=== PATIENT | male | born 1960 | race Caucasian/White ===

== ENCOUNTER 2016-04-27 10:49 | Outpatient (RCR) | payer MEDICARE, OTHER ==
[2016-02-24 10:08] VITALS: BP 132/82
--- OUTSIDE RECORDS SUMMARY | 2016-02-24 10:27 | XMS REPORT | Continuity of Care Document ---
Author Author [facility] Organization [facility] Address Unknown Phone Unavailable Care Team Providers Care Rn Cardiology Name Role Phone Jemal Chaudhary PCP [phone] Source Comments Some departments are not documenting in the electronic medical record. If you do not see the information that you expected, contact Release of Information in the Health Information Management department at [phone] for further assistance in locating additional records.[facility] Active Allergies and Adverse Reactions Allergen Noted Date Severity Reactions Comments Protamine 06/02/2012 UNKNOWN Simvastatin 08/06/2012 MUSCLE PAIN Tylox 06/02/2012 HALLUCINATIONS With large doses Current Medications Prescription Sig. Disp. Refills Start End Date Status Date isosorbide mononitrate SR Take 60 mg by mouth every Active (IMDUR) 60 mg tablet morning. insulin detemir(+) Inject 32 Units into Active (LEVEMIR) 100 unit/mL area(s) as directed at Soln bedtime daily. buPROPion (WELLBUTRIN) 75 Take 150 mg by mouth Active mg tablet daily. insulin aspart (NOVOLOG) Inject 36-38 Units into Active 100 unit/mL flexPEN area(s) as directed three times daily with meals. clopiDOGrel (PLAVIX) 75 Take 1 Tab by mouth 30 Tab 1 06/05/19 Active mg tablet daily. 13 nitroglycerin (NITROSTAT) for chest pain. Take 1 25 Tab 3 06/10/19 Active 0.4 mg tablet every 5 minutes x up to 3 13 times. Call 911 or go to ER if chest pain persists aspirin 325 mg tablet Take 325 mg by mouth Active daily. levothyroxine (SYNTHROID) Take 175 mcg by mouth Active 175 mcg tablet daily. cloNIDine HCl (CATAPRESS) Take 0.1 mg by mouth Active 0.1 mg tablet daily as needed. When SBP >140 lovastatin(+) (MEVACOR) Take 60 mg by mouth at Active 40 mg tablet bedtime daily. HYDROcodone-acetaminophen Take 1 Tab by mouth twice Active (+) (VICODIN) 10-325 mg daily as needed. For pain tablet Active Problems Problem Noted Date S/P laparoscopic cholecystectomy 09/04/2012 Type II diabetes mellitus (HCC) 06/02/2012 S/P CABG (coronary artery bypass graft) 06/02/2012 JOSE (obstructive sleep apnea) 06/02/2012 CAD (coronary artery disease) Overview: 01/06/09- CABG x 4 ([facility]): Left internal thoracic artery-LAD. SVG-DIAG, SVG-OM1 and OM2. HTN (hypertension) Hypothyroidism CKD (chronic kidney disease) Resolved Problems Problem Noted Date Resolved Date Cholelithiasis 08/15/2012 09/04/2012 Cholelithiasis and cholecystitis without obstruction 08/12/2012 09/04/2012 Social History Tobacco Use Types Packs/Day Years Used Date Former Smoker Cigarettes 35 Quit: 02/23/2012 Smokeless Tobacco: Never Used Alcohol Use Drinks/Week oz/Week Comments No Last Filed Vital Signs Vital Sign Reading Time Taken Blood Pressure 120/70 10/28/2012 10:23 AM CDT Pulse 54 10/28/2012 10:23 AM CDT Temperature 36.2 C (97.1 F) 09/03/2012 10:30 AM CDT Respiratory Rate 14 09/03/2012 10:30 AM CDT Height 1.778 m (5' 10") 12/26/2012 10:31 AM CDT Weight 97.523 kg (215 lb) 12/26/2012 10:31 AM CDT Body Mass Index 30.85 12/26/2012 10:31 AM CDT Oxygen Saturation 99% 08/16/2012 11:35 AM CDT Plan of Care Health Maintenance Due Date Last Done Comments Physical (Comprehensive) 08/25/1966 Exam Pertussis Vaccine 08/25/1970 Tetanus Vaccine 08/25/1976 Dilated Eye Exam 08/25/1977 Foot Exam 08/25/1977 Hba1c 08/25/1977 Microalbumin 08/25/1977 Pneumonia Vaccine (Dm) 08/25/1977 Colorectal Cancer 08/25/2009 Screening Influenza Vaccine 11/24/2015 Results from Last 3 Months Not on file
[2016-03-27 10:15] VITALS: BP 153/85
[~2016-04-27] VITALS: Ht 177.8 cm; Wt 94.3 kg
[~2016-04-27 10:49] MED LIST: AMLO10TA PO; ASP325T PO; ASP81TEC PO; ASPI-84; ASPI-999 PO; ATEN25TA PO; ATOR40TA PO; ATOR80TA PO; ATR20T; Alprazolam PO; Amlodipine Besylate PO; BENA40TA59; BNZ20T PO; BPR150TCR PO; BUPR150T6; BUPR75TA5 PO; CIPR500T78 PO; CIPR5DRO EACH EAR; CITA-105 PO; CLIN-81 PO; CLON0.1T14 PO; CLOP75TA PO; DULO30CA3 PO; GBPN100C; HYDR-2890 PO; HYDR-3720 PO; INSASP10V SC; INSU100I13; INSU100I14 SQ; INSU100I5; INSU100V5 SQ; ISM30TCR PO; ISM60TCR PO; Insulin Human Lispro SC; K-VANCO1PB IV; LEVE1U SQ; LEVO175T3 PO; LEVO200T30; LEVO200T30 PO; LEVO200T6 PO; LISI20TA2 PO; LOVA20TA2 PO; LOVA40TA2; LOVA40TA2 PO; LOVA60TA2 PO; LVT.112T PO; METO50TA7; METO5TAB2 PO; NITR0.4T SL; OMEG-12 PO; OXYC-12; PNT40TEC PO; QUIN40TA; SIMV80TA3 PO; SUCR1TAB PO; Sucralfate PO; TEST5GEL6; TRM50T; ZINC50TA49 PO; [UNRECOGNIZED DRUG - CODE] IV
[2016-04-27 11:02] VITALS: BP 163/95
[2016-05-30] MEDS ORDERED: LOVA20TA2 PO (08:23)
[2016-05-30] MEDS ORDERED: ISOS30TA3 PO (08:23)
[2016-05-31] MEDS ORDERED: OMEG500C PO (07:56)
[2016-06-09] MEDS ORDERED: OXYC-201 PO (12:10)
[2016-06-09] MEDS ORDERED: SULF1TAB35 PO (12:10)
[2016-06-09] MEDS ORDERED: CRUT1EAC7 IART (12:15)
[2016-07-05] MEDS ORDERED: AMLO10TA2 PO (08:58)
[2016-07-05] MEDS ORDERED: CFTR1PB IV (08:58)
== END 2016-05-24 | disposition home or self-care (01) ==
LOC: SDC 10:49
PROVIDERS: ATTEND Internal Medicine
DX: Z45.2 Encounter for adjustment and management of vascular access device (principal); I87.2 Venous insufficiency (chronic) (peripheral)
CPT/HCPCS: 96523

== ENCOUNTER → 2016-05-17 | Outpatient (CLI) | payer MEDICARE, OTHER ==
[~2016-05-17] MED LIST changes: +AMLO10TA2 PO; +ASPI-983 PO; +CFTR1PB IV; +CRUT1EAC7 IART; +ISOS30TA3 PO; +OMEG500C PO; +OMG1KC PO; +OXYC-201 PO; +SULF1TAB34 PO; +SULF1TAB35 PO
--- OUTSIDE RECORDS SUMMARY | 2016-05-17 09:54 | XMS REPORT | Continuity of Care Document ---
Author Author [facility] Organization [facility] Address Unknown Phone Unavailable Care Team Providers Care Professor Of Oceanography Name Role Phone Jemal Chaudhary PCP [phone] Source Comments Some departments are not documenting in the electronic medical record. If you do not see the information that you expected, contact Release of Information in the Health Information Management department at [phone] for further assistance in locating additional records.[facility] Active Allergies and Adverse Reactions Allergen Noted [...] artery disease) Overview: 01/06/09- CABG x 4 ([facility]): Left internal thoracic artery-LAD. SVG-DIAG, SVG-OM1 [...]
[2016-05-17 10:07] LABS: BASOPHILS # (AUTO) 0.1 10^3/uL (0.0-0.1); BASOPHILS % (AUTO) 1 % (0-10); EOSINOPHILS # (AUTO) 0.4 10^3/uL (0.0-0.3); EOSINOPHILS % (AUTO) 3 % (0-10); LYMPHOCYTES # (AUTO) 1.6 X 10^3 (1.0-4.0); LYMPHOCYTES % (AUTO) 14 % (12-44); MEAN CORPUSCULAR HEMOGLOBIN 31 PG (25-34); MEAN CORPUSCULAR HGB CONC 34 G/DL (32-36); MEAN CORPUSCULAR VOLUME 90 FL (80-99); MEAN PLATELET VOLUME 11.1 FL (7.4-10.4); MONOCYTES # (AUTO) 0.8 X 10^3 (0.0-1.0); MONOCYTES % (AUTO) 7 % (0-12); NEUTROPHILS # (AUTO) 8.4 X 10^3 (1.8-7.8); NEUTROPHILS % (AUTO) 76 % (42-75); PLATELET COUNT 155 10^3/uL (130-400); RED BLOOD COUNT 4.92 10^6/uL (4.35-5.85); WHITE BLOOD COUNT 11.1 10^3/uL (4.3-11.0)
[2016-05-17 10:32] LABS: ALBUMIN 3.5 G/DL (3.2-4.5); BILIRUBIN,TOTAL 0.5 MG/DL (0.1-1.0); CALCIUM 9.3 MG/DL (8.5-10.1); CREATININE SERUM 1.77 MG/DL (0.60-1.30); POTASSIUM 4.5 MMOL/L (3.6-5.0)
[2016-05-17 10:44] LABS: ERYTHROCYTE SEDIMENTATION RATE 44 MM/HR (0-30)
== END ==
LOC: LAB 09:49
PROVIDERS: ATTEND Internal Medicine
DX: E11.621 Type 2 diabetes mellitus with foot ulcer (principal); I70.235 Atherosclerosis of native arteries of right leg with ulceration of other part of foot; L97.512 Non-pressure chronic ulcer of other part of right foot with fat layer exposed
CPT/HCPCS: 36415; 80053; 83036; 85025; 85652

== ENCOUNTER → 2016-05-24 | Outpatient (CLI) | payer MEDICARE, OTHER ==
--- OUTSIDE RECORDS SUMMARY | 2016-05-24 08:57 | XMS REPORT | Continuity of Care Document ---
Author Author [facility] Organization [facility] Address Unknown Phone Unavailable Care Team Providers Care Tick Sewer Name Role Phone Jemal Chaudhary PCP [phone] Source Comments Some departments are not documenting in the electronic medical record. If you do not see the information that you expected, contact Release of Information in the Health Information Management department at [phone] for further assistance in locating additional records.[facility] Active Allergies and Adverse Reactions Allergen [...] artery disease) Overview: 01/06/09- CABG x 4 ([facility]): Left internal thoracic artery-LAD. SVG-DIAG, SVG-OM1 [...]
--- NOTE | 2016-05-24 14:59 | Diagnostic Imaging Report ---
Three views of the right foot. INDICATION: Third toe exposed bone. Evaluate for osteomyelitis. FINDINGS: There is abnormal lucency and erosion in the distal phalanx in the great toe. There is also evidence of erosion of the tuft of the distal phalanx of the second toe. Nonspecific central lucency is seen in the third, fourth and fifth distal phalanges. These could be from cystic degenerative changes. There is hallux valgus deformity. There is a screw through the base of the first metatarsal. There is satisfactory bone alignment. No acute fracture seen. IMPRESSION: Age-indeterminate erosions in the distal phalanges of the first and second toes. Nonspecific lucencies in the distal phalanges of the third, fourth and fifth toes are perhaps related to intraosseous cysts. Correlate clinically and with followup exams. Dictated by: Dictated on workstation # [id number]
== END ==
LOC: LAB 08:53
PROVIDERS: ATTEND Internal Medicine
DX: E11.621 Type 2 diabetes mellitus with foot ulcer (principal); I70.235 Atherosclerosis of native arteries of right leg with ulceration of other part of foot; L97.512 Non-pressure chronic ulcer of other part of right foot with fat layer exposed
CPT/HCPCS: 73630

== ENCOUNTER → 2016-05-28 | Outpatient (CLI) | payer MEDICARE, OTHER ==
--- OUTSIDE RECORDS SUMMARY | 2016-05-28 07:38 | XMS REPORT | Continuity of Care Document ---
Author Author [facility] Organization [facility] Address Unknown Phone Unavailable Care Team Providers Care Parking Lot Attendant And Cashier Name Role Phone Jemal Chaudhary PCP [phone] Source Comments Some departments are not documenting in the electronic medical record. If you do not see the information that you expected, contact Release of Information in the Health Information Management department at [phone] for further assistance in locating additional records.[facility] Active Allergies and Adverse Reactions Allergen Noted [...] artery disease) Overview: 01/06/09- CABG x 4 ([facility]): Left internal thoracic artery-LAD. SVG-DIAG, SVG-OM1 [...]
[2016-05-28 08:32] LABS: THYROID STIMULATING HORMONE 1.31 UIU/ML (0.35-4.94)
[2016-05-29 11:48] LABS: MICROALBUMIN/CREATININE RATIO 973.3 mg/gCR (0.0-30.0)
== END ==
LOC: LAB 07:33
PROVIDERS: ATTEND Internal Medicine
DX: Z00.00 Encounter for general adult medical examination without abnormal findings (principal); E11.65 Type 2 diabetes mellitus with hyperglycemia; E78.1 Pure hyperglyceridemia; E78.00 Pure hypercholesterolemia, unspecified; D50.8 Other iron deficiency anemias; E03.9 Hypothyroidism, unspecified
CPT/HCPCS: 36415; 80061; 82043; 82728; 83540; 84439; 84443

== ENCOUNTER 2016-05-30 06:40 | Day surgery (SDC) | payer MEDICARE, OTHER ==
[2016-05-30] VITALS (11 sets, daily range): BP systolic 148–167; BP diastolic 86–104
[~2016-05-30] VITALS: Ht 177.8 cm; Wt 92.1 kg
[~2016-05-30 06:40] MED LIST changes: -AMLO10TA2 PO; -ASPI-983 PO; -CFTR1PB IV; -CRUT1EAC7 IART; -ISOS30TA3 PO; -OMEG500C PO; -OMG1KC PO; -OXYC-201 PO; -SULF1TAB34 PO; -SULF1TAB35 PO
--- OUTSIDE RECORDS SUMMARY | 2016-05-30 06:43 | XMS REPORT | Continuity of Care Document ---
Author Author [facility] Organization [facility] Address Unknown Phone Unavailable Care Team Providers Care Roller Maker Name Role Phone Jemal Chaudhary PCP [phone] Source Comments Some departments are not documenting in the electronic medical record. If you do not see the information that you expected, contact Release of Information in the Health Information Management department at [phone] for further assistance in locating additional records.[facility] Active Allergies and Adverse Reactions Allergen [...] disease) Overview: 01/06/09- CABG x 4 ([facility]): Left internal thoracic artery-LAD. SVG-DIAG, SVG-OM1 and [...]
--- OUTSIDE RECORDS SUMMARY | 2016-05-30 06:43 | XMS REPORT | Continuity of Care Document ---
Author Author [facility] Organization [facility] Address Unknown Phone Unavailable Care Team Providers Care Photographer'S Model Name Role Phone Jemal Chaudhary PCP [phone] Source Comments Some departments are not documenting in the electronic medical record. If you do not see the information that you expected, contact Release of Information in the Health Information Management department at [phone] for further assistance in locating additional records.[facility] Active Allergies and Adverse Reactions [...] artery disease) Overview: 01/06/09- CABG x 4 ([facility]): Left internal thoracic artery-LAD. SVG-DIAG, SVG-OM1 and [...]
[2016-05-30] MEDS ORDERED: HEParin (CATH LAB) 2,000 ML IV ONE (06:58)
[2016-05-30] MEDS ORDERED: NS IV 1000 ML 1,000 ML ONE (06:58)
[2016-05-30] MEDS ORDERED: LIDOCAINE 1% INJ 20 ML (XYLOCAINE) VIAL ONE ×2 (06:58→10:17)
[2016-05-30] MEDS ORDERED: NS IV 1000 ML 1,000 ML IV SCH (07:30)
[2016-05-30] MEDS ORDERED: FLU TRIvalent (5 YOA+) 2016-17 (AFLURIA) 0.5 ML IM ONE (07:45)
--- NOTE | 2016-05-30 07:45 | Diagnostic Imaging Report ---
INDICATION: Preop. FINDINGS: The lungs are well-aerated and clear. The heart is not enlarged. Median sternotomy changes are present. No pneumothorax or pleural effusion. IMPRESSION: No acute abnormalities. Dictated by: Dictated on workstation # [id number]
[2016-05-30 07:57] LABS: BILIRUBIN,URINE NEGATIVE (NEGATIVE); KETONES,URINE NEGATIVE (NEGATIVE); LEUKOCYTE ESTERASE ,URINE NEGATIVE (NEGATIVE); NITRITE,URINE NEGATIVE (NEGATIVE); PH,URINE 5 (5-9); PROTEIN,URINE 4+ (NEGATIVE); UROBILINOGEN,URINE NORMAL (NORMAL)
[2016-05-30 07:58] LABS: MEAN PLATELET VOLUME 11.4 FL (7.4-10.4); RED BLOOD COUNT 4.78 10^6/uL (4.35-5.85); RED CELL DISTRIBUTION WIDTH 13.7 % (10.0-14.5)
[2016-05-30 08:07] LABS: SQUAMOUS EPITHELIAL CELL,UR 0-2 /HPF; WBC,URINE 0-2 /HPF
[2016-05-30 08:09] LABS: INR 1.1 (0.8-1.4); PROTHROMBIN TIME PATIENT 13.4 SEC (12.2-14.7)
[2016-05-30 08:16] LABS: ALBUMIN 3.3 G/DL (3.2-4.5); BILIRUBIN,TOTAL 0.8 MG/DL (0.1-1.0); CALCIUM 9.2 MG/DL (8.5-10.1); CREATININE SERUM 2.11 MG/DL (0.60-1.30); POTASSIUM 4.1 MMOL/L (3.6-5.0); TOTAL PROTEIN 6.7 G/DL (6.4-8.2)
[2016-05-30] MEDS ORDERED: ISOS30TA3 PO ×2 (08:23)
[2016-05-30] MEDS ORDERED: LOVA20TA2 PO ×2 (08:23)
[2016-05-30] MEDS ORDERED: NS IV 1000 ML 2,000 ML ONE (08:54)
--- NOTE | 2016-05-30 09:10 | Cardiac Procedure Note-CS/ASA ---
Pre-Procedure Note Pre-Op Procedure Note H&P Reviewed The H&P was reviewed, patient examined and no changes noted. Date H&P Reviewed: May 30, 2016 Time H&P Reviewed: 09:09 Conscious Sedation Pre-Proced Time Reviewed: : ASA Class: 3 Airway Mallampati Classification: ([place] appropriate class) I. II. III, IV Lungs Heart ASA score ASA 1: a normal healthy patient ASA 2: a patient with a mild systemic disease (mid diabetes, controlled hypertension, obesity x ASA 3: a patient with a severe systemic disease that limits activity (angina , COPD, prior Myocardial infarction) ASA 4: a patient with an incapacitating disease that is a constant threat to life (CHF, renal failure) ASA 5: a moribund patient not expected to survive 24 hrs. (ruptured aneurysm) ASA 6: a declared brain patient whose organs are being harvested. For emergent operations, add the letter E after the classification Grade 3 Sedation Plan: Analgesia, Amnesia, Plan communicated to team members, Discussed options with patient/fam, Discussed risks with patient/fam Note The patient is an appropriate candidate to undergo the planned procedure, sedation, and anesthesia. The patient immediately re-assessed prior to indication. JORDEN GREER MD May 30, 2016 09:10
[2016-05-30] MEDS ORDERED: fentaNYL INJECTION 100 MCG/2 ML AMP ONE ×2 (09:40→10:38)
[2016-05-30] MEDS ORDERED: MIDAZOLAM 5 MG/5 ML (VERSED) VIAL ONE ×2 (09:40→10:38)
[2016-05-30] MEDS ORDERED: HEParin 1000 UNIT/ML (10ML VIAL) FOR BOLUS ONE (10:23)
[2016-05-30] MEDS ORDERED: NITROGLYCERIN DRIP 25 MG/D5W 250 ML IV ONE (10:51)
[2016-05-30] MEDS ORDERED: CLOPIDOGREL 300 MG (PLAVIX) TABLET PO ONE (11:35)
[2016-05-30] MEDS ORDERED: ASPIRIN 81 MG CHEW (CHILDREN'S ASA) ONE (11:35)
[2016-05-30] MEDS ORDERED: NITROGLYCERIN SUBLINGUAL 0.4 MG TAB (NITROSTAT) SL PRN (11:45)
[2016-05-30] MEDS ORDERED: PATIENT MAY USE OWN MEDS, ALL PO SCH (11:45)
[2016-05-30] MEDS ORDERED: HYDROcodone/APAP 10 MG/325 MG (LORTAB) TAB PO PRN (11:45)
[2016-05-30] MEDS: NS IV 1000 ML 1,000 ML IV SCH (15:02)
[2016-05-30] MEDS ORDERED: SIMvastatin 10 MG (ZOCOR) TAB PO SCH (21:00)
[2016-05-31] VITALS: BP 148/85
[2016-05-31] MEDS: NS IV 1000 ML 1,000 ML IV SCH ×2 (02:12→07:34)
[2016-05-31 04:25] LABS: MEAN PLATELET VOLUME 11.4 FL (7.4-10.4); RED BLOOD COUNT 4.16 10^6/uL (4.35-5.85); RED CELL DISTRIBUTION WIDTH 13.3 % (10.0-14.5); WHITE BLOOD COUNT 9.2 10^3/uL (4.3-11.0)
[2016-05-31 04:48] LABS: CALCIUM 8.1 MG/DL (8.5-10.1); CREATININE SERUM 1.8 MG/DL (0.60-1.30); POTASSIUM 3.8 MMOL/L (3.6-5.0)
[2016-05-31] MEDS ORDERED: LEVOTHYROXINE 100 MCG (LEVOTHROID) TAB PO SCH (06:30)
--- NOTE | 2016-05-31 07:54 | Cardiology Progress Note ---
Subjective Subjective/Events-last exam patient is laying down in bed, feeling better, groin is healing well. Review of Systems General: No Chills, No Night Sweats, No Fatigue, No Malaise, No Appetite, No Other HEENT: No Head Aches, No Visual Changes, No Eye Pain, No Ear Pain, No Dysphasia , No Sinus Congestion, No Post Nasal Drip, No Sore Throat, No Other Pulmonary: No Dyspnea, No Cough, No Pleuritic Chest Pain, No Other Cardiovascular: No: Chest Pain, Edema, Lt Headedness, Orthopnea, Other, Palpitations, Paroxysmal Noc. Dyspnea Objective-Cardiology Exam Last Set of Vital Signs Vital Signs 05/30/16 05/31/16 05/31/16 05/31/16 14:00 00:00 01:00 06:52 Temp 98.6 Pulse 73 Resp 16 B/P 148/85 Pulse Ox 94 O2 Delivery Room Air O2 Flow Rate 2.00 Capillary Refill : Less Than 3 Seconds General: Alert, Oriented X3, Cooperative HEENT: Atraumatic, PERRLA Neck: Supple, No JVD, No Thyromegaly Lungs: Clear to Auscultation, Normal Air Movement Heart: Regular Rate, Normal S1, Normal S2, No Murmurs Abdomen: Normal Bowel Sounds, Soft, No Tenderness, No Hepatosplenomegaly, No Masses Extremities: No Clubbing, No Cyanosis, No Edema, Normal Pulses, No Tenderness/ Swelling Skin: No Rashes, No Breakdown, No Significant Lesion Neuro: Normal Gait, Normal Speech, Strength at 5/5 X4 Ext, Normal Tone, Sensation Intact Psych/Mental Status: Mental Status NL, Mood NL Results Lab Laboratory Tests 05/31/16 04:08 A/P-Cardiology Admission Diagnosis nonhealing foot ulcer Peripheral arterial disease Hypertension Hyperlipidemia Assessment/Plan peripheral arterial disease, status post angiogram and angioplasty, report was dictated. Coronary artery disease Hypertension, continue current medication Hyperlipidemia continue current medication Nonhealing foot ulcer, followed by wound care Tobaccoism educated on smoking cessation JORDEN GREER MD May 31, 2016 07:54
[2016-05-31] MEDS ORDERED: OMEG500C PO ×2 (07:56)
--- NOTE | 2016-05-31 07:56 | Discharge Inst-Post CATH ---
Discharge Inst-CATH Post Cardiac Cath D/C Inst Follow Up/Plan Appointment with Dr Roy's office in 2-4 weeks CARDIAC CATH DISCHARGE INSTRUCTIONS *Hold Metformin for 48 hours post heart cath. ACTIVITY * Go Home directly and rest. * Limit activity of the leg (or wrist if it was used) for 7 days including aerobics, swimming, jogging, bicycling, etc. * Restrict stair-climbing for 7 days if possible, if not, climb up with your non -cath leg, then bring together on the same step. * Avoid lifting, pushing, pulling or excessive movement of the affected extremity for 7 days. * Customary sexual activity may be resumed after 2 days-use caution not to use a position that strains or causes pain to the affected extremity. * No driving for 24 hours. * NO SMOKING. * Avoid straining for bowel movements for 7 days. * Gentle walking on level ground is allowed. * Returning to work will depend on the type of procedure and the results. Your doctor will discuss this with you. CALL YOUR DOCTOR FOR ANY OF THE FOLLOWING: *If bleeding from the puncture site occurs- Apply gentle pressure to site with clean cloth and call your doctor or EMS. * If a knot or lump forms under the skin, increases in size, or causes pain. * If bruising appears to be worsening or moving further down your leg instead of disappearing. * Temperature above 101 F. CARE OF YOUR GROIN INCISION; * Bruising or purple discoloration of the skin near the puncture site is common. * You may shower only, no bathtub bathing for 5 days. Be careful to avoid slipping as your leg may feel stiff. * If a closure device was used on your femoral artery, please see the attached guide regarding care of the device and your leg. * REMOVE the dressing from your groin the next day after your procedure in the shower. CARE OF YOUR WRIST INCISION; * Bruising or purple discoloration of the skin near the puncture site is common. * You may shower. * DO NOT submerge wrist. * Remove dressing in 24 hours. JORDEN ROY MD May 31, 2016 07:56
[2016-05-31 08:00] VITALS: BP 158/85
--- NOTE | 2016-05-31 08:33 | DISCHARGE SUMMARY ---
PROCEDURE PHYSICIAN: JORDEN GREER DATE OF PROCEDURE: 05/30/2016 PERIPHERAL ANGIOGRAM REPORT REFERRING PHYSICIAN: Dr. Ivet Colon INDICATIONS: 1. Peripheral arterial disease. 2. Nonhealing foot ulcer. BRIEF HISTORY: Mr. Valera is a 55-year-old gentleman with a history of peripheral arterial disease, multiple interventions. He has nonhealing foot ulcer on his right foot. He was scheduled for peripheral angiogram, possible angioplasty. PROCEDURE NOTE: After explaining the procedure to the patient, all pros and cons were explained. All questions were answered. The patient was placed on the cardiac catheterization laboratory. The left groin was prepped in a sterile fashion. I placed patient upside down on the collaborating supervising physician table for accessing the right leg. The patient had a stent extending in the superficial femoral artery to the common femoral artery on the left. I was able to access through the stent and put a 6-Polish sheath. Runoff of the left lower extremity was done. Then I advanced a pigtail catheter to the abdominal aorta, and abdominal aortogram was done. I extended a Storq wire through the pigtail catheter and placed a straight catheter in the common femoral artery. Runoff to the right leg was done. Then I advanced a straight catheter down to the popliteal artery and angiogram was done. At that time, I decided to proceed with percutaneous intervention. The patient was given heparin then through the straight catheter, I placed a Storq wire, exchanged the catheter and the sheath into 7-Polish long sheath 65 mm, advanced to the SFA. Then a command wire was advanced through the severe stenosis in the popliteal artery to the anterior tibial that has the subtotal occlusion. 2.0 x 60 mm apex balloon was inflated. Then 3 x 16 mm apex balloon was used. Excellent results. I inflated the anterior tibial and in the popliteal artery. Then I decided to balloon the popliteal artery with Lutonix drug coated balloon, 4.0 x 80 expanded under 8 atmospheres to its nominal position. Angiogram post balloon showed excellent results. Angiogram to the foot showed excellent result. The patient had stenosis in the posterior tibial and peroneal artery, which will be treated medically. Total contrast used in this procedure is 68 mL. Total radiation is 220 mGy. FINDINGS: 1. LEFT LOWER EXTREMITY RUNOFF: The patient had stent extending throughout the left SFA down to the popliteal artery and up in the common femoral. Runoff showed good flow. At the trifurcation there is occlusion of stents in the anterior tibial artery. The posterior tibial artery and peroneal arteries are occluded. 2. RIGHT LOWER EXTREMITY: Right lower extremity runoff showed moderate disease in the SFA. Severe disease at the distal popliteal artery just above the trifurcation. Anterior tibial artery is subtotally occluded, large artery. The posterior tibial and peroneal arteries are smaller arteries with severe disease at the midportion. Successful balloon angioplasty to the anterior tibial artery using 2.0 then 3.0 balloon x 60 mm with excellent results. Successful balloon angioplasty to the popliteal artery using drug coated balloon Lutonix 4.0 x 80 mm with excellent results. Excellent flow down to the foot post intervention. 3. ABDOMINAL AORTOGRAM: Abdominal aortogram showed atherosclerotic disease in the abdominal aorta and the bifurcation. Nonobstructive disease. DISCUSSION AND RECOMMENDATION: The patient was educated on smoking cessation. I will continue maximizing medical therapy. I am optimistic that the foot ulcer on the right will improve after improvement of the severe stenosis of the popliteal artery and anterior tibial artery. If patient continues to have problems, we will consider intervention on the posterior tibial artery. Regarding the left lower extremity if patient has any symptoms will consider intervention on the occluded stent in the anterior tibial artery and peroneal artery. FINAL DIAGNOSES: 1. Nonhealing foot ulcer. 2. Peripheral arterial disease. 3. Hypertension. 4. Hyperlipidemia. 5. Tobaccoism. Job ID: [id number] Dictated Date: 05/30/2016 11:48:05 Director Shopper Marketing Date: 05/31/2016 08:31:18/ugo
[2016-05-31] MEDS ORDERED: inSUlin DETERMIR 1 UNIT/0.01 ML (LEVEMIR) CHARGE PER UNIT SQ SCH (09:00)
[2016-05-31] MEDS ORDERED: CLOPIDOGREL 75 MG (PLAVIX) TABLET PO SCH (09:00)
[2016-05-31] MEDS ORDERED: ISOSORBIDE MONONITRATE 30 MG (IMDUR) TAB PO SCH (09:00)
[2016-05-31] MEDS ORDERED: ASPIRIN 81 MG CHEW (CHILDREN'S ASA) PO SCH (09:00)
[2016-06-09] MEDS ORDERED: OXYC-201 PO (12:10)
[2016-06-09] MEDS ORDERED: SULF1TAB35 PO (12:10)
[2016-06-09] MEDS ORDERED: CRUT1EAC7 IART (12:15)
[2016-07-05] MEDS ORDERED: AMLO10TA2 PO (08:58)
[2016-07-05] MEDS ORDERED: CFTR1PB IV (08:58)
== END 2016-05-31 10:35 | disposition home or self-care (01) ==
LOC: CATH 06:40 → CSD 11:50 → ICU 19:30 → CATH 05-31 10:35
PROVIDERS: ATTEND Internal Medicine Cardiovascular Disease
DX: L97.519 Non-pressure chronic ulcer of other part of right foot with unspecified severity (principal); I70.235 Atherosclerosis of native arteries of right leg with ulceration of other part of foot; N18.9 Chronic kidney disease, unspecified; I12.9 Hypertensive chronic kidney disease with stage 1 through stage 4 chronic kidney disease, or unspecified chronic kidney disease; E11.22 Type 2 diabetes mellitus with diabetic chronic kidney disease; E11.621 Type 2 diabetes mellitus with foot ulcer; I25.10 Atherosclerotic heart disease of native coronary artery without angina pectoris; Z72.0 Tobacco use; Z79.899 Other long term (current) drug therapy; Z79.4 Long term (current) use of insulin; Z95.5 Presence of coronary angioplasty implant and graft; Z95.1 Presence of aortocoronary bypass graft
CPT/HCPCS: 36247; 36415; 37224; 37228; 71010; 75625; 75716; 75774; 80048; 80053; 80061; 81000; 82962; 85027; 85347; 85610; 85730; 87081

== ENCOUNTER → 2016-06-05 | Outpatient (CLI) | payer MEDICARE, OTHER ==
[~2016-06-05] MED LIST changes: +AMLO10TA2 PO; +ASPI-983 PO; +CFTR1PB IV; +CRUT1EAC7 IART; +ISOS30TA3 PO; +OMEG500C PO; +OMG1KC PO; +OXYC-201 PO; +SULF1TAB34 PO; +SULF1TAB35 PO
--- OUTSIDE RECORDS SUMMARY | 2016-06-05 10:45 | XMS REPORT | Continuity of Care Document ---
Author Author [facility] Organization [facility] Address Unknown Phone Unavailable Care Team Providers Care Forensic Accountant Name Role Phone Jemal Chaudhary PCP [phone] Source Comments Some departments are not documenting in the electronic medical record. If you do not see the information that you expected, contact Release of Information in the Health Information Management department at [phone] for further assistance in locating additional records.[facility] Active Allergies and Adverse Reactions [...] artery disease) Overview: 01/06/09- CABG x 4 ([facility]): Left internal thoracic artery-LAD. SVG-DIAG, [...]
[2016-06-05 11:27] LABS: CALCIUM 9.3 MG/DL (8.5-10.1); CREATININE SERUM 2.06 MG/DL (0.60-1.30); POTASSIUM 4.6 MMOL/L (3.6-5.0)
== END ==
LOC: LAB 10:41
PROVIDERS: ATTEND Nurse Practitioner
DX: E11.621 Type 2 diabetes mellitus with foot ulcer (principal); I70.235 Atherosclerosis of native arteries of right leg with ulceration of other part of foot; L97.512 Non-pressure chronic ulcer of other part of right foot with fat layer exposed
CPT/HCPCS: 36415; 80048

== ENCOUNTER 2016-06-07 11:19 | Outpatient (CLI) | payer MEDICARE, OTHER ==
[~2016-06-07] VITALS: Ht 177.8 cm; Wt 95.7 kg
[~2016-06-07 11:19] MED LIST changes: -AMLO10TA2 PO; -ASPI-983 PO; -CFTR1PB IV; -CRUT1EAC7 IART; -OMG1KC PO; -OXYC-201 PO; -SULF1TAB34 PO; -SULF1TAB35 PO
--- OUTSIDE RECORDS SUMMARY | 2016-06-07 11:23 | XMS REPORT | Continuity of Care Document ---
Author Author [facility] Organization [facility] Address Unknown Phone Unavailable Care Team Providers Care Voltage Tester Name Role Phone Jemal Chaudhary PCP [phone] Source Comments Some departments are not documenting in the electronic medical record. If you do not see the information that you expected, contact Release of Information in the Health Information Management department at [phone] for further assistance in locating additional records.[facility] [...] artery disease) Overview: 01/06/09- CABG x 4 ([facility]): Left internal thoracic artery-LAD. SVG-DIAG, SVG-OM1 [...]
[2016-06-07 11:27] VITALS: BP 115/78
[2016-06-08] MEDS ORDERED: ASPI-983 PO (15:27)
[2016-06-08] MEDS ORDERED: OMG1KC PO (15:27)
[2016-06-08] MEDS ORDERED: SULF1TAB34 PO (15:27)
[2016-07-05] MEDS ORDERED: AMLO10TA2 PO (08:58)
[2016-07-05] MEDS ORDERED: CFTR1PB IV (08:58)
== END 2016-06-07 11:45 | disposition home or self-care (01) ==
LOC: PREOP 11:19
PROVIDERS: ATTEND Podiatrist
DX: Z01.818 Encounter for other preprocedural examination (principal); Z11.2 Encounter for screening for other bacterial diseases; E11.52 Type 2 diabetes mellitus with diabetic peripheral angiopathy with gangrene; M21.80 Other specified acquired deformities of unspecified limb; I96 Gangrene, not elsewhere classified
CPT/HCPCS: 87081

== ENCOUNTER 2016-06-08 10:05 | Day surgery (SDC) | payer MEDICARE, OTHER ==
[~2016-06-08] VITALS: Ht 177.8 cm; Wt 95.7 kg
--- OUTSIDE RECORDS SUMMARY | 2016-06-08 10:09 | XMS REPORT | Continuity of Care Document ---
Author Author [facility] Organization [facility] Address Unknown Phone Unavailable Care Team Providers Care Raisin Separator Operator Name Role Phone Jemal Chaudhary PCP [phone] Source Comments Some departments are not documenting in the electronic medical record. If you do not see the information that you expected, contact Release of Information in the Health Information Management department at [phone] for further assistance in locating additional records.[facility] Active Allergies and Adverse Reactions [...] artery disease) Overview: 01/06/09- CABG x 4 ([facility]): Left internal thoracic artery-LAD. SVG-DIAG, SVG-OM1 [...]
--- OUTSIDE RECORDS SUMMARY | 2016-06-08 10:09 | XMS REPORT | Continuity of Care Document ---
Author Author [facility] Organization [facility] Address Unknown Phone Unavailable Care Team Providers Care Child Welfare Specialist Name Role Phone Jemal Chaudhary PCP [phone] Source Comments Some departments are not documenting in the electronic medical record. If you do not see the information that you expected, contact Release of Information in the Health Information Management department at [phone] for further assistance in locating additional records.[facility] Active Allergies and Adverse Reactions Allergen [...] artery disease) Overview: 01/06/09- CABG x 4 ([facility]): Left internal thoracic artery-LAD. SVG-DIAG, SVG-OM1 [...]
[2016-06-08 10:30] VITALS: BP 148/81
[2016-06-08] MEDS ORDERED: FAMOTIDINE 20MG/2ML IV (PEPCID) IV ONE (10:30)
[2016-06-08] MEDS ORDERED: proPOfol 200 MG/20 ML (DIPRIVAN) VIAL IV ONE (10:48)
[2016-06-08] MEDS ORDERED: fentaNYL INJECTION 100 MCG/2 ML AMP ONE (10:48)
[2016-06-08] MEDS ORDERED: MIDAZOLAM 2 MG/2 ML (VERSED) VIAL ONE (10:49)
[2016-06-08] MEDS ORDERED: ceFAZolin 2 GM/50 ML NS 50 ML IV ONE (11:09)
[2016-06-08] MEDS: LACTATED RINGERS 1,000 ML IV PRN ×2 (11:13→12:50)
--- NOTE | 2016-06-08 11:45 | Progress Note-Pre Operative ---
Pre-Operative Progress Note H&P Reviewed The H&P was reviewed, patient examined and no changes noted. Date H&P Reviewed: Jun 08, 2016 Time H&P Reviewed: 11:45 Pre-Operative Diagnosis: Gangrene Right Foot KIARRA ESPAÑA DPM Jun 08, 2016 11:45
[2016-06-08] MEDS ORDERED: LACTATED RINGERS 2,000 ML IV ONE (12:49)
[2016-06-08] MEDS ORDERED: SEVOFLURANE (ULTANE) 15 ML INHAL SOLN ONE (12:49)
[2016-06-08] MEDS ORDERED: ONDANSETRON 4 MG/2 ML (SDV) Z0FRAN ONE (13:03)
[2016-06-08] MEDS ORDERED: morphine INJ 10 MG/ML 1ML (SYR OR VIAL) ONE (13:03)
[2016-06-08] MEDS ORDERED: ceFAZolin 2 GM/50 ML NS 50 ML IV SCH (13:15)
[2016-06-08] MEDS ORDERED: BISACODYL 10 MG SUPP (DULCOLAX) PR PRN (13:15)
--- NOTE | 2016-06-08 13:18 | Progress Note-Post Operative ---
Post-Operative Progess Note Temper Mill Operator none Pre-Operative Diagnosis Gangrene Right Foot, Equinus Deformity RLE Post-Operative Diagnosis same Post-Op Procedure Note Date of Procedure: Jun 08, 2016 Name of Procedure: TMA RLE, Percutaneous TendoAchilles Legthening RLE Estimated blood loss (mL): 150cc KIARRA ESPAÑA DPM Jun 08, 2016 13:18
[2016-06-08] MEDS: morphine INJ 10 MG/ML 1ML (SYR OR VIAL) IV PRN ×2 (13:30→13:35)
[2016-06-08] MEDS ORDERED: ONDANSETRON 4 MG/2 ML (SDV) Z0FRAN IV PRN (13:30)
[2016-06-08 14:44] VITALS: BP 170/77
[2016-06-08] MEDS ORDERED: ASPI-983 PO (15:27)
[2016-06-08] MEDS ORDERED: SULF1TAB34 PO (15:27)
[2016-06-08] MEDS ORDERED: OMG1KC PO (15:27)
[2016-06-08] MEDS ORDERED: FLU TRIvalent (5 YOA+) 2016-17 (AFLURIA) 0.5 ML IM ONE (15:30)
[2016-06-08] MEDS ORDERED: PATIENT MAY USE OWN MEDS, ALL MC SCH (15:30)
[2016-06-08] MEDS: morphine INJ 10 MG/ML 1ML (SYR OR VIAL) IVP PRN ×4 (15:53→22:01)
[2016-06-08 16:00] VITALS: BP 132/87
[2016-06-08] MEDS ORDERED: HYDROcodone/APAP 10 MG/325 MG (LORTAB) TAB PO PRN (16:00)
[2016-06-08] MEDS ORDERED: NITROGLYCERIN SUBLINGUAL 0.4 MG TAB (NITROSTAT) SL PRN (16:00)
[2016-06-08] MEDS ORDERED: INSULIN ASPART 30 UNIT SQ SCH (17:00)
[2016-06-08] MEDS: NOVOLOG 100 UNIT/ML SQ SCH (17:45)
[2016-06-08] MEDS: BACTRIM PO SCH (18:33)
[2016-06-08] MEDS: ceFAZolin 2 GM/50 ML NS 50 ML IV SCH (18:33)
[2016-06-08] MEDS: HYDROcodone/APAP 10 MG/325 MG (LORTAB) TAB PO PRN (18:38)
[2016-06-08 19:50] VITALS: BP 126/76
[2016-06-08] MEDS: D5 1/2 NS 1000 ML IV SOLUTION 1,000 ML IV SCH (20:36)
[2016-06-08] MEDS: ONDANSETRON 4 MG/2 ML (SDV) Z0FRAN IVP PRN (20:43)
[2016-06-08] MEDS ORDERED: SULFAMETHOXAZOLE PO SCH (21:00)
[2016-06-08] MEDS ORDERED: [UNRECOGNIZED DRUG - OTHER] PO SCH (21:00)
[2016-06-08] MEDS ORDERED: TRIMETHOPRIM PO SCH (21:00)
[2016-06-09] VITALS: BP 165/78
[2016-06-09] MEDS: morphine INJ 10 MG/ML 1ML (SYR OR VIAL) IVP PRN ×2 (00:07→08:07)
[2016-06-09] MEDS ORDERED: NS (IVPB) 50 ML ONE (02:10)
[2016-06-09] MEDS ORDERED: ceFAZolin 1,000 MG (ANCEF) VIAL ONE (02:10)
[2016-06-09] MEDS: ceFAZolin 2 GM/50 ML NS 50 ML IV SCH (02:17)
[2016-06-09] MEDS: HYDROcodone/APAP 10 MG/325 MG (LORTAB) TAB PO PRN ×2 (03:33→13:22)
[2016-06-09 04:00] VITALS: BP 172/73
[2016-06-09 05:07] LABS: MEAN PLATELET VOLUME 10.8 FL (7.4-10.4); RED BLOOD COUNT 3.91 10^6/uL (4.35-5.85); RED CELL DISTRIBUTION WIDTH 13.5 % (10.0-14.5); WHITE BLOOD COUNT 13.6 10^3/uL (4.3-11.0)
[2016-06-09 05:14] LABS: CALCIUM 8.8 MG/DL (8.5-10.1); CREATININE SERUM 2.07 MG/DL (0.60-1.30); POTASSIUM 4.6 MMOL/L (3.6-5.0)
[2016-06-09] MEDS: BACTRIM PO SCH (06:24)
[2016-06-09] MEDS: NOVOLOG 100 UNIT/ML SQ SCH ×2 (06:25→12:00)
[2016-06-09] MEDS ORDERED: LEVOTHYROXINE 200 MCG PO SCH (06:30)
[2016-06-09 08:00] VITALS: BP 173/80
[2016-06-09] MEDS: ONDANSETRON 4 MG/2 ML (SDV) Z0FRAN IVP PRN (08:07)
[2016-06-09] MEDS: inSUlin DETERMIR 1 UNIT/0.01 ML (LEVEMIR) CHARGE PER UNIT SQ SCH ×2 (08:07→09:38)
[2016-06-09] MEDS ORDERED: ENOXAPARIN 40 MG/0.4 ML (LOVENOX) SYR SC SCH (09:00)
[2016-06-09] MEDS ORDERED: ISOSORBIDE MONONITRATE 30 MG (IMDUR) TAB PO SCH (09:00)
[2016-06-09] MEDS ORDERED: CLOPIDOGREL 75 MG (PLAVIX) TABLET PO SCH (09:00)
[2016-06-09] MEDS ORDERED: NON-FORMULARY MEDICATION 1 EA EA (Lovastatin 20 MG) PO SCH (09:00)
[2016-06-09] MEDS ORDERED: OMEGA 3 (FISH OIL) 1000 MG CAP PO SCH (09:00)
[2016-06-09] MEDS ORDERED: LEVOTHYROXINE SODIUM 200 MCG PO SCH (09:00)
[2016-06-09] MEDS ORDERED: ASPIRIN E.C. 81 MG (ECOTRIN) TAB PO SCH (09:00)
--- NOTE | 2016-06-09 09:18 | Anesthesia-General Post-Op ---
General Patient Condition Mental Status/LOC: Same as Preop Cardiovascular: Satisfactory Nausea/Vomiting: Absent Respiratory: Satisfactory Pain: Controlled Complications: Absent Post Op Complications Complications None Follow Up Care/Instructions Patient Instructions None needed. Anesthesia/Patient Condition Patient Condition Patient is doing well, no complaints, stable vital signs, no apparent adverse anesthesia problems. No complications reported per nursing. TAMMI DONALD CRNA Jun 09, 2016 09:18
--- NOTE | 2016-06-09 09:27 | Occupational Therapy Eval ---
OT Evaluation-General/PLF Medical Diagnosis Admission Date 06/08/16 Onset Date: Jun 08, 2016 Therapy Diagnosis Therapy Diagnosis: decreased self care Height/Weight Height (Feet): 5 Height (Inches): 10.00 Weight (Pounds): 211 Weight (Ounces): 0.0 Precautions Precautions/Isolations: Standard Precautions Safety Interventions: Bed Exit Alarm Weight Bear Status Weight Bearing Restriction: Non Weight Bearing Location Restriction: R LE Referral Physician: Adalberto Medical History Pertinent Medical History: Arthritis, CABG, CAD Current History Pt s/p right TMA with heel cord lengthening Reviewed History: Yes Social History Home: Single Level Current Living Status: Alone Entry Into Home: Stairs Without Railing Steps Into Home: 2 ADL-Prior Level of Function ADL PLOF Comments Pt reports being independent with all ADLs and mobility. Uses cane for mobility. Pt states he has everything set up for home and states "I don't have trouble with anything." DME/Equipment: Tub/Shower Drive Self: Yes OT Current Status Subjective Pt in bed, agrees to therapy, reports he hopes to be discharged today. Pt states he has no pain at rest, but has pain in right LE with movement. does not rate pain Mental Status/Objective Patient Orientation: Person, Place, Situation Attachments: IV Current Glasses/Contacts: Yes Hand Dominance: Right Upper Extremity ROM WFL Upper Extremity Coordination Intact Upper Extremity Strength Grossly WFL ADL-Treatment ADL-Current Pt supine to sit with modified independence. Pt states he was able to don underwear with set up. Pt demonstrated ability to doff/don left sock without assistance. Sit to stand with modified independence. Pt demonstrated ability [place] [facility] [place] using FWW, requires cues for NWB right LE. Pt states he has no questions or concerns regarding ADLs or home safety. Pt declined further activity at this time. Pt in bed with RN present after session. Functional [place] Measure 0=Not Assessed/NA 4=Minimal Assistance 1=Total Assistance 5=Supervision or Setup 2=Maximal Assistance 6=Modified [place] 3=Moderate Assistance 7=Complete IndependenceIRFPAI Quality Coding Scale 6 Independent with activity with or without an assistive device 5 Patient requires set up or clean up by helper. Patient completes activity by themselves 4 Supervision or touching assist (CGA). [place] provide cues , steadying assist 3 The helper provides less than half the effort to complete the activity 2 The helper provides more than half the effort to complete the activity 1 Dependent. The helper does all the effort to complete an activity 7 Patient refused to complete or attempt activity 9 The patient did not perform the activity before the current illness or injury 88 Not attempted due to Medical conditions or safety concerns Toilet/Commode Transfer (FIM): 5 Education OT Patient Education: Rehab process Teaching Recipient: Patient Teaching Methods: Discussion Response to Teaching: Verbalize Understanding OT Short Term Goals Short Term Goals 1=Demonstrate adherence to instructed precautions during ADL tasks. 2=Patient will verbalize/demonstrate understanding of assistive devices/ modifications for ADL. 3=Patient will improve strength/tolerance for activity to enable patient to perform ADL's. OT Die Casting Machine Setter Goals Long-Term Goals Time Frame: Jun 15, 2016 Bathing(FIM): 6 Upper Body Dressing(FIM): 6 Lower Body Dressing(FIM): 6 Toileting(FIM): 6 Toilet/Commode Transfer(FIM): 6 Additional Goals: 1-Demonstrate ADL Tasks, 2-Verbalize Understanding, 3- ImproveStrength/Vickie 1=Demonstrate adherence to instructed precautions during ADL tasks. 2=Patient will verbalize/demonstrate understanding of assistive devices/ modifications for ADL. 3=Patient will improve strength/tolerance for activity to enable patient to perform ADL's. OT Education/Plan Problem List/Assessment Assessment: Dependent Transfers, Impaired Self-Care Skills Pt to benefit from skilled OT intervention for ADL training, transfers, and home safety education to maximize level of function. Discharge Recommendations Plan/Recommendations: Continue POC Treatment Plan/Plan of Care Patient would benefit from OT for education, treatment and training to promote independence in ADL's, mobility, safety and/or upper extremity function for ADL' s. Treatment Duration: Jun 15, 2016 # of days/week 5 Visits Per Week: 5 Agreement: Yes Rehab Potential: Good Time/GCodes Start Time: 07:58 Stop Time: 08:13 Total Time Billed (hr/min): 15 Billed Treatment Time 1 visit, YO(15minutes) PILLO CHAPA OT Jun 09, 2016 09:27
[2016-06-09] MEDS: D5 1/2 NS 1000 ML IV SOLUTION 1,000 ML IV SCH (09:56)
--- NOTE | 2016-06-09 10:19 | Physical Therapy Evaluation ---
PT Evaluation-General Medical Diagnosis Admission Date 06/08/16 Medical Diagnosis: gangrene right foot/post TMA Onset Date: Jun 08, 2016 Therapy Diagnosis Therapy Diagnosis: weakness; abn gait Height/Weight Height (Feet): 5 Height (Inches): 10.00 Weight (Pounds): 211 Weight (Ounces): 0.0 Precautions Precautions/Isolations: Standard Precautions Weight Bear Status Weight Bearing Restriction: Non Weight Bearing Location Restriction: R LE Referral Physician: Adalberto Reason for Referral: Evaluation/Treatment Medical History Pertinent Medical History: Arthritis, CABG, CAD, DM Additional Medical History left great toe and 2nd toe amputation 2 yrs ago. 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 Reports his is diabetic. Reviewed History: Yes Social History Home: Single Level (trailer home) Current Living Status: Alone Entry Into Home: Stairs Without Railing PT Steps Into Home: 2 (with rail) Prior/Core FIM Prior Level of Function Functional [place] Measure 0=Not Assessed/NA 4=Minimal Assistance 1=Total Assistance 5=Supervision or Setup 2=Maximal Assistance 6=Modified [place] 3=Moderate Assistance 7=Complete [place] Bed Mobility: 7 Transfers (B,C,W/C) (FIM): 7 Gait: 6 (cane ) cares for self; performs all household tasks, drives. PT Evaluation-Current Subjective Pt agreeable to PT. Reprots he got up to the commode last night and walked on his heel (right) to move about. Reports he plans to go home today, alone. Reports he knows how to do the stairs and does not need training. Pt also asked about type of shoe to wear. Pain Numeric Pain Scale: 0-No Pain Location: No Pain Reported Objective Patient Orientation: Person, Place, Time, Situation Problem Solving: Fair ROM/Strength ROM Lower Extremities WFL Strenght Lower Extremities WFL Integumentary/Posture Integumentary post amputation right foot Bowel Incontinence: No Bladder Incontinence: No Neuromuscular (Tone, Coordination, Reflexes) intact and without noted deficit Sensory Vision: Wears Glasses Hearing: Functional Hand Dominance: Right Sensation Right Lower Extremit: Impaired Sensation Left Lower Extremity: Impaired Transfers Functional [place] Measure 0=Not Assessed/NA 4=Minimal Assistance 1=Total Assistance 5=Supervision or Setup 2=Maximal Assistance 6=Modified [place] 3=Moderate Assistance 7=Complete [place] Transfers (B, C, W/C) (FIM): 5 Supine to/from Sit: 5 Sit to/from Stand: 5 SBA with all bed mobility but no assist and no noted concerns, feel he can complete indep. Gait Anticipated Mode of Locomotion: Walk Gait Assistive Device: FWW Comments/Gait Description Pt hopped x 15 ft with FWW, NWB right LE. Sat up in chair with needs met. Balance Sitting Static: Good Sitting Dynamic: Good Standing Static: Good Standing Dynamic: Good Treatment Education on NWB status and to not heel walk unless told differently by Dr. Glover. Educated pt to use surgical shoe he has at home to protect the end of his foot but to remain NWB. Educcated on safety with gait and training on use of FWW. Pt also inquired about crutches, but told him a walker is typically safer and easier to use. He agreed to use FWW. Nursing notified that pt would need a FWW for home. Assessment/Needs Pt was safe with transfers and hopping short distance. He maintained NWB status. Pt appears safe to manage mobility mod indep at home. EV mod due to prior amputaiton, DM; NWB status, slight decreased functional balance and limited gait tolerance; recent amputation thus presentation will likely be changing for a few more days. Rehab Potential: Good PT Fpc Goals Fpc Goals PT Fulfillment Specialist Goals Time Frame: Jun 11, 2016 Transfers (B,C,W/C) (FIM): 7 Gait (FIM): 6 Gait distance (FIM): 3=150 ft Gait Assistive Device: FWW Pt will likely discharge before saturday but if he is still here, will check to ensure mod indep. PT Plan Problem List Problem List: Activity Tolerance, Functional Strength, Safety, Balance, Gait, Transfer, Bed Mobility Treatment/Plan Treatment Plan: Continue Plan of Care Treatment Plan: Bed Mobility, Education, Functional Activity Vickie, Functional Strength, Gait, Safety, Transfers Treatment Duration: Jun 11, 2016 # of days/week 6 Visits Per Week: 6 Pt/Family Agrees w/Plan: Yes Safety Risks/Education Patient Education: Transfer Techniques, Reviewed Precautions (NWB), Safety Issues Teaching Recipient: Patient Teaching Methods: Demonstration, Discussion Response to Teaching: Verbalize Understanding, Return Demonstration Discharge Recommendations Plan If patient still in hospital will check on Saturday to ensure mod indep and safe with mobility. Time/GCodes Time In: 850 Time Out: 905 Total Billed Treatment Time: 15 Total Billed Treatment visit EVM 15 MOHAN HAGAN PT Jun 09, 2016 10:19
--- NOTE | 2016-06-09 11:33 | Consultation-Hospitalist ---
HPI History of Present Illness: HPI/Chief Complaint this is a 55-year-old white male postop day number 1 from partial amputation of the foot for gangrene. The patient is awake and alert and anxious to go home today. PT and OT have advised that he be discharged with a front wheeled walker. Source: patient Exam Limitations: no limitations Date Seen 06/09/16 Attending Physician Jerry Glover Dpm PCP Ivet Colon DO Referring Physician Jayjay Date of Admission 06-08 Home Medications & Allergies Home Medications Reviewed patient Home Medication Reconciliation Form Allergies Coded Allergies: oxycodone HCl (Unverified Allergy, Unknown, HAS RECEIVED HYDROMORPHONE W/ O ISSUE, 05/21/14) protamine (Unverified Allergy, Unknown, 04/23/14) Past Ybhekoh-Tkauqb-[id number] Hx Patient Social History Marrital Status: single Employed/Student: retired Alcohol Use: Denies Use Recreational Drug Use: No Smoking Status: Former Smoker Former smoker/When Quit: Jun 23, 2012 Type Used: Cigars Physical Abuse Screen: No Sexual Abuse: No Recent Foreign Travel: No Contact w/other who traveled: No Recent Hopitalizations: No Recent Infectious Disease Expo: No Immunizations Up To Date Tetanus Booster (TDap): Unknown Seasonal Allergies Seasonal Allergies: No Surgeries HX Surgeries: Yes (BUNIONECTOMY BILAT FEET; LEFT BIG TOE AND ONE NEXT TO IT) Surgeries: CABG, Gallbladder, Vascular Surgery Respiratory Hx Respiratory Disorders: Yes Cardiovascular Hx Cardiovascular Disorders: Yes Cardiac Disorders: Coronary Artery Disease, Heart Attack, High Cholesterol, Hypertension, Peripheral Vascular Neurological Hx Neurological Disorders: Yes Neurological Disorders: Neuropathy Reproductive System Hx Reproductive Disorders: No Sexually Transmitted Disease: No HIV/AIDS: No Genitourinary Hx Genitourinary Disorders: Yes (WEAK RIGHT KIDNEY - DAMAGE) Genitourinary Disorders: Renal Failure Gastrointestinal Hx Gastrointestinal Disorders: Yes (OCC REFLUX) Gastrointestinal Disorders: Gastroesophageal Reflux Musculoskeletal Hx Musculoskeletal Disorders: Yes Musculoskeletal Disorders: Amputee, Arthritis, Chronic Back Pain Endocrine Hx Endocrine Disorders: Yes Endocrine Disorders: Diabetes, Insulin dep, Hypothyroidsim HEENT HX ENT Disorders: Yes (CATARACTS REMOVED, GLASSES) HEENT Disorders: Cataract Loss of Vision: Left Hearing Impairment: Denies Cancer Hx Cancer: No Psychosocial Hx Psychiatric Problems: Yes Behavioral Health Disorders: Sleep Difficulties Integumentary HX Skin/Integumentary Disorder: Yes (DIABETIC ULCER) Skin/Integumentary Disorders: Recent Skin Changes Blood Transfusions Hx Blood Disorders: No Adverse Reaction to a Blood Tr: No Family Medical History Family Hx: Alzheimer's disease 19 FATHER BLOOD Cardiovascular disease 19 MOTHER Diabetes mellitus 19 FATHER G8 SISTER FH: blood disorder G8 SISTER (SPECULATION) Hypertension 19 MOTHER Myocardial infarction 19 MOTHER Review of Systems Constitutional: no symptoms reported see HPI EENTM: no symptoms reported Respiratory: no symptoms reported Cardiovascular: no symptoms reported Gastrointestinal: no symptoms reported Musculoskeletal: other Skin: no symptoms reported Psychiatric/Neurological: No Symptoms Reported Physical Exam Physical Exam Vital Signs Vital Sign - Last 12Hours 06/08/16 10:30 Temp 97.6 Pulse 88 Resp 20 B/P 148/81 Pulse Ox 98 O2 Delivery Room Air Capillary Refill : General Appearance: No Apparent Distress WD/WN HEENT: Normal ENT Inspection Neck: Supple Respiratory: Lungs Clear Normal Breath Sounds No Accessory Muscle Use No Respiratory Distress Cardiovascular: Regular Rate, Rhythm Systolic Murmur Gastrointestinal: Non Tender Soft Extremity: Other (right leg is wrapped in dressing no site of bleeding.) Neurologic/Psychiatric: Alert Oriented x3 Skin: Normal Color Warm/Dry Results Results/Procedures Lab Laboratory Tests 06/09/16 04:50 Assessment/Plan Admission Diagnosis 1.postop day number 1 status post amputation for osteomyelitis and gangrene 2. diabetes- insulin-dependent labile 3. Coronary artery disease 4. Peripheral vascular disease 5. chronic renal failure stage IV 6. Anemia of chronic disease Clinical Quality Measures DVT/VTE Risk/Contraindication: Risk Factor Score Per Nursin RFS Level Per Nursing on Admit: 3=VICENTA Lopez MD Jun 09, 2016 11:32 am
[2016-06-09 12:00] VITALS: BP 156/73
--- NOTE | 2016-06-09 12:01 | Podiatry Progress Note ---
Standard Progress Note Progress Notes/Assess & Plan Progress/Assessment & Plan Pt doing well at BS, denies F/C/N/V, denies CP/SOB RLE- CFT to the stump is WNL, no erythema, minimal edema, no purulence/ fluctuance, calf supple nontender Final Diagnosis POD #1 TMA RLE with Tendo Achilles Lengthening -Plan for D/C today with oral abx Clinda/Cipro for 2 weeks -NWB RLE -Follow up as outpt in 2 weeks. KIARRA ESPAÑA DPM Jun 09, 2016 12:01
--- NOTE | 2016-06-09 12:04 | Discharge Summary ---
Diagnosis/Chief Complaint Date of Admission 06/08/2016 Date of Discharge Discharge Date: Jun 09, 2016 Discharge Time: 12:02 Admission Diagnosis Admission Diagnosis Gangrene Right Foot Discharge Diagnosis Gangrene Right Foot Discharge Summary Procedures: Transmetatarsal Amputation RLE Tendo achilles lengthening RLE Consultations Hospitalist Discharge Physical Examination Allergies: Coded Allergies: oxycodone HCl (Unverified Allergy, Unknown, HAS RECEIVED HYDROMORPHONE W/ O ISSUE, 05/21/14) protamine (Unverified Allergy, Unknown, 04/23/14) Vitals & I&Os Vital Signs Date Time Temp Pulse Resp B/P Pulse Ox O2 Delivery O2 Flow Rate FiO2 06/09/16 08:00 99.4 79 24 173/80 94 Room Air Hospital Course uneventful Pending Labs Laboratory Tests 06/09/16 04:50: Anion Gap 9, BUN/Creatinine Ratio 10, Blood Urea Nitrogen 20, Calcium Level 8.8 , Carbon Dioxide Level 24, Chloride Level 100, Creatinine 2.07, Estimat Glomerular Filtration Rate 33, Glucose Level 218, Hematocrit 35, Hemoglobin 11.8 , Hemoglobin A1c 7.6, Mean Corpuscular Hemoglobin 30, Mean Corpuscular Hemoglobin Concent 33, Mean Corpuscular Volume 91, Mean Platelet Volume 10.8, Platelet Count 219, Potassium Level 4.6, Red Blood Count 3.91, Red Cell Distribution Width 13.5, Sodium Level 133, White Blood Count 13.6 06/09/16 11:21: Glucometer 101 Discharge Instructions to patient/family Please see electonic discharge instructions given to patient. Discharge Medications Reviewed and agree with Discharge Medication list on patient's Discharge Instruction sheet Clinical Quality Measures DVT/VTE Risk/Contraindication: Risk Factor Score Per Nursin RFS Level Per Nursing on Admit: 3=High KIARRA ESPAÑA DPM Jun 09, 2016 12:04
--- NOTE | 2016-06-09 12:05 | Discharge Inst-Surgical ---
Discharge Inst-Surgical Consults/Follow Up Goal/Follow Up Appt.: CALL FOR FOLLOW UP WITH DR ESPAÑA ON 06/21/2016 Patient Instructions: KEEP DRESSING CLEAN DRY AND INTACT, DO NOT REMOVE DRESSING DO NOT GET DRESSING WET OR SOILED. REMAIN NONWEIGHT BEARING TO THE RIGHT FOOT WITH CRUTCHES OR WALKER. KIARRA ESPAÑA DPM Jun 09, 2016 12:05
[2016-06-09] MEDS ORDERED: SULF1TAB35 PO (12:10)
[2016-06-09] MEDS ORDERED: OXYC-201 PO (12:10)
[2016-06-09] MEDS ORDERED: CRUT1EAC7 IART (12:15)
[2016-06-09] MEDS ORDERED: SENNA W/DOCUSATE (SENOKOT S) TABLET PO SCH (21:00)
[2016-06-09] MEDS ORDERED: SIMvastatin 10 MG (ZOCOR) TAB PO SCH (21:00)
--- NOTE | 2016-06-21 08:47 | OPERATIVE REPORT ---
PROCEDURE PHYSICIAN: KIARRA ESPAÑA DATE OF PROCEDURE: 06/08/2016 SURGEON: Dr. España RECEPTION AGENT: None. PREOPERATIVE DIAGNOSIS: Gangrene of the right foot. POSTOPERATIVE DIAGNOSIS: Gangrene of the right foot. PROCEDURE PERFORMED: 1. Transmetatarsal amputation, right foot. 2. Tendon Achilles lengthening, right lower extremity. ANESTHESIA: General anesthesia. HEMOSTASIS: Locally controlled. BLOOD LOSS: 100 mL MATERIALS USED: 1. 2-0 and 3-0 nylon. 2. 3-0 Vicryl. INTRAOPERATIVE INJECTABLES: None. COMPLICATIONS: None. INDICATIONS FOR THE PROCEDURE: The patient Prosper Valera is a 55-year-old male who has a history of gangrene to multiple toes of his right foot, as well as peripheral vascular disease to his right lower extremity. He has previously underwent angioplasty of the right lower extremity; however, has contusion necrosis of his the second, 3rd and 4th toes of the right foot and is requiring surgical intervention. He has been made aware of the risks and benefits of surgery as well as the alternatives to undergoing it and signed consent prior to being taken back to the OR. DESCRIPTION OF THE PROCEDURE: Under mild sedation, the patient was brought into the OR and placed on the operating table in the supine position. Following administration of general anesthesia, the right lower extremity was scrubbed, prepped and draped in an aseptic manner. A proper timeout was performed. The right lower extremity was identified as the surgical site. Next, 2 semielliptical incisions were made encompassing the entire forefoot. The incisions were deepened down to the bones at the mid metatarsal level. Once the incision was deepened down to the level of the bone, it was then freed and dissected back using a unger elevator to release the dorsal flap. The metatarsals were then incised, 1 through 5 and they were dissected off, the forefoot was dissected off of the metatarsals from the plantar aspect. The forefoot was passed from the surgical field. The wound was then flushed with copious amounts sterile saline under pulse lavage. Any bleeders were tied or cauterized and hemostasis was achieved to the right lower extremity. Next, the 2 skin flaps were then brought together to cover up the metatarsals and the skin was reapproximated with wound edges well everted using 2-0 and 3-0 nylon. A Silverskold test was then performed to the ankle and it was noted there was a significant plantar flexor deformity and thus indication for a tendon Achilles lengthening was deemed necessary. Percutaneous tendon Achilles lengthening was then done. 2 stab incisions were made in the medial aspect of the Achilles tendon, 1 at 3 cm proximal to the insertion, 1 at 9 cm proximal to the insertion. The medial one-half the Achilles tendon was incised through stab incisions. Next, a lateral incision was then made over the approximately 6 cm proximal to the insertion of the Achilles tendon and the lateral one-half of the Achilles tendon was incised through the lateral incision. A dorsiflexory force was then placed across the ankle and there was lengthening of the Achilles tendon noted. Care was taken not to fully release the Achilles tendon and there was palpable tendon through a Z-type lengthening manner. All wounds were then were then flushed with copious amounts sterile saline and closed using 3-0 nylon. The foot was then dressed with a dry sterile dressing, consisting of 4 x 4's, web roll, and Ishmael wrap, followed by posterior splint and Ishmael wrap. The patient tolerated the procedure and anesthesia well. He was transferred from the OR to recovery with vital signs stable, neurovascular status intact to the right lower extremity. Job ID: [id number] Dictated Date: 06/20/2016 16:22:34 Ornamental Iron Worker Helper Date: 06/21/2016 08:31:43 / cristina HERNANDEZ
[2016-07-05] MEDS ORDERED: CFTR1PB IV (08:58)
[2016-07-05] MEDS ORDERED: AMLO10TA2 PO (08:58)
== END 2016-06-09 13:25 | disposition home or self-care (01) ==
LOC: SDC 10:05 → 4TH 14:10 → SDC 06-09 13:25
PROVIDERS: ATTEND Podiatrist
DX: I96 Gangrene, not elsewhere classified (principal); M21.80 Other specified acquired deformities of unspecified limb; E11.22 Type 2 diabetes mellitus with diabetic chronic kidney disease; I12.9 Hypertensive chronic kidney disease with stage 1 through stage 4 chronic kidney disease, or unspecified chronic kidney disease; N18.4 Chronic kidney disease, stage 4 (severe); I25.10 Atherosclerotic heart disease of native coronary artery without angina pectoris; K21.9 Gastro-esophageal reflux disease without esophagitis; E03.9 Hypothyroidism, unspecified; D63.8 Anemia in other chronic diseases classified elsewhere; Z79.4 Long term (current) use of insulin
CPT/HCPCS: 36415; 80048; 82962; 83036; 85027; 94664

== ENCOUNTER 2016-06-25 10:12 | Outpatient (RCR) | payer MEDICARE, OTHER ==
--- OUTSIDE RECORDS SUMMARY | 2016-05-25 09:53 | XMS REPORT | Continuity of Care Document ---
Author Author [facility] Organization [facility] Address Unknown Phone Unavailable Care Team Providers Care Utility Appraiser Name Role Phone Jemal Chaudhary PCP [phone] Source Comments Some departments are not documenting in the electronic medical record. If you do not see the information that you expected, contact Release of Information in the Health Information Management department at [phone] for further assistance in locating additional records.[facility] Active Allergies and Adverse Reactions Allergen [...] artery disease) Overview: 01/06/09- CABG x 4 ([facility]): Left internal thoracic artery-LAD. SVG-DIAG, SVG-OM1 [...] Health Maintenance Due Date Last Done Comments Hepatitis C Screening 1960 Physical (Comprehensive) 08/25/1966 Exam Pertussis Vaccine 08/25/1970 Tetanus Vaccine 08/25/1976 Dilated Eye Exam 08/25/1977 Foot Exam 08/25/1977 Hba1c 08/25/1977 Microalbumin 08/25/1977 Pneumonia Vaccine (Dm) 08/25/1977 Colorectal Cancer 08/25/2009 Screening Influenza Vaccine 11/23/2016 Results from Last 3 Months Not on file
[2016-05-25 10:09] VITALS: BP 149/86
[~2016-06-25] VITALS: Ht 177.8 cm; Wt 94.3 kg
[~2016-06-25 10:12] MED LIST changes: +ASPI-983 PO; +CRUT1EAC7 IART; +OMG1KC PO; +OXYC-201 PO; +SULF1TAB34 PO; +SULF1TAB35 PO
[2016-06-25 10:33] VITALS: BP 121/89
[2016-06-27] MEDS ORDERED: SULF1TAB34 PO (15:14)
[2016-07-05] MEDS ORDERED: AMLO10TA2 PO (08:58)
[2016-07-05] MEDS ORDERED: CFTR1PB IV (08:58)
== END 2016-08-23 | disposition home or self-care (01) ==
LOC: SDC 10:12
PROVIDERS: ATTEND Internal Medicine
DX: I87.2 Venous insufficiency (chronic) (peripheral) (principal); Z45.2 Encounter for adjustment and management of vascular access device
CPT/HCPCS: 96523

== ENCOUNTER 2016-06-27 14:07 | Day surgery (SDC) | payer MEDICARE, OTHER ==
[~2016-06-27] VITALS: Ht 177.8 cm; Wt 90.3 kg
[~2016-06-27 14:07] MED LIST changes: -AMLO10TA2 PO; -CFTR1PB IV; -HEParin (CATH LAB) 1,000 ML IV ONE; -LIDOCAINE 1% INJ 20 ML (XYLOCAINE) VIAL ONE; -NS IV 1000 ML 1,000 ML IV SCH; -NS IV 1000 ML 1,000 ML ONE
[2016-06-27] MEDS ORDERED: NS IV 1000 ML 1,000 ML IV SCH ×2 (14:10→15:28)
[2016-06-27 14:16] LABS: MEAN PLATELET VOLUME 11.2 FL (7.4-10.4); RED BLOOD COUNT 4.34 10^6/uL (4.35-5.85); RED CELL DISTRIBUTION WIDTH 14.5 % (10.0-14.5)
[2016-06-27 14:23] LABS: PROTHROMBIN TIME PATIENT 13.3 SEC (12.2-14.7)
[2016-06-27 14:31] LABS: ALBUMIN 3.6 G/DL (3.2-4.5); BILIRUBIN,TOTAL 0.7 MG/DL (0.1-1.0); CALCIUM 9.6 MG/DL (8.5-10.1); CREATININE SERUM 2.52 MG/DL (0.60-1.30); POTASSIUM 3.9 MMOL/L (3.6-5.0); TOTAL PROTEIN 7.8 G/DL (6.4-8.2)
[2016-06-27] MEDS ORDERED: fentaNYL INJECTION 100 MCG/2 ML AMP ONE (14:41)
[2016-06-27] MEDS ORDERED: MIDAZOLAM 5 MG/5 ML (VERSED) VIAL ONE (14:41)
[2016-06-27] MEDS ORDERED: SULF1TAB34 PO (15:14)
[2016-06-27] MEDS ORDERED: PATIENT MAY USE OWN MEDS, ALL PO SCH (15:30)
--- NOTE | 2016-06-27 15:30 | Discharge Inst-Post CATH ---
Discharge Inst-CATH Post Cardiac Cath D/C Inst Follow Up/Plan Appointment with Dr Roy's office in 2-4 weeks CARDIAC CATH DISCHARGE INSTRUCTIONS *Hold Metformin for 48 hours post heart cath. ACTIVITY * Go Home directly and rest. * Limit activity of the leg (or wrist if it was used) for 7 days including aerobics, swimming, jogging, bicycling, etc. * Restrict stair-climbing for 7 days if possible, if not, climb up with your non -cath leg, then bring together on the same step. * Avoid lifting, pushing, pulling or excessive movement of the affected extremity for 7 days. * Customary sexual activity may be resumed after 2 days-use caution not to use a position that strains or causes pain to the affected extremity. * No driving for 24 hours. * NO SMOKING. * Avoid straining for bowel movements for 7 days. * Gentle walking on level ground is allowed. * Returning to work will depend on the type of procedure and the results. Your doctor will discuss this with you. CALL YOUR DOCTOR FOR ANY OF THE FOLLOWING: *If bleeding from the puncture site occurs- Apply gentle pressure to site with clean cloth and call your doctor or EMS. * If a knot or lump forms under the skin, increases in size, or causes pain. * If bruising appears to be worsening or moving further down your leg instead of disappearing. * Temperature above 101 F. CARE OF YOUR GROIN INCISION; * Bruising or purple discoloration of the skin near the puncture site is common. * You may shower only, no bathtub bathing for 5 days. Be careful to avoid slipping as your leg may feel stiff. * If a closure device was used on your femoral artery, please see the attached guide regarding care of the device and your leg. * REMOVE the dressing from your groin the next day after your procedure in the shower. CARE OF YOUR WRIST INCISION; * Bruising or purple discoloration of the skin near the puncture site is common. * You may shower. * DO NOT submerge wrist. * Remove dressing in 24 hours. JORDEN ROY MD Jun 27, 2016 15:30
--- NOTE | 2016-06-27 15:31 | Cardiac Procedure Note-CS/ASA ---
Pre-Procedure Note Pre-Op Procedure Note H&P Reviewed The H&P was reviewed, patient examined and no changes noted. Date H&P Reviewed: Jun 27, 2016 Time H&P Reviewed: 13:30 Conscious Sedation Pre-Proced Time Reviewed: 13:30 ASA Class: 3 Airway Mallampati Classification: (grand traverse appropriate class) I. II. III, IV Lungs Heart ASA score ASA 1: a normal healthy patient ASA 2: a patient with a mild systemic disease (mid diabetes, controlled hypertension, obesity x ASA 3: a patient with a severe systemic disease that limits activity (angina , COPD, prior Myocardial infarction) ASA 4: a patient with an incapacitating disease that is a constant threat to life (CHF, renal failure) ASA 5: a moribund patient not expected to survive 24 hrs. (ruptured aneurysm) ASA 6: a declared brain patient whose organs are being harvested. For emergent operations, add the letter E after the classification Grade 3 Sedation Plan: Analgesia, Amnesia, Plan communicated to team members, Discussed options with patient/fam, Discussed risks with patient/fam Note The patient is an appropriate candidate to undergo the planned procedure, sedation, and anesthesia. The patient immediately re-assessed prior to indication. JORDEN GREER MD Jun 27, 2016 15:31
[2016-06-27 15:45] VITALS: BP 142/89
[2016-06-27 16:00] VITALS: BP 137/83
[2016-06-27 16:15] VITALS: BP 164/92
--- NOTE | 2016-06-27 16:25 | Diagnostic Imaging Report ---
EXAMINATION: Portable semi-erect AP chest at 3:48 p.m. INDICATION: Post catheter removal. FINDINGS: The exam performed earlier today noted that the Groshong catheter on the left had been interrupted and had migrated into the right ventricle. On this exam, the Groshong catheter is no longer visualized. Reportedly, it was retrieved by Dr. Roy. The overall appearance of the chest itself is stable. The heart size remains within normal limits, and the lungs are clear. There is no evidence for pneumothorax. The mediastinum is not widened. The osseous structures are intact. The sternotomy wires and surgical clips noted previously are again evident and no different. IMPRESSION: 1. The Groshong catheter overlying the right ventricle of the heart noted on the prior study has been removed without apparent complication. 2. These results were called to Dr. Roy. Dictated by: Dictated on workstation # [id number]
[2016-06-27 16:30] VITALS: BP 163/89
[2016-06-27 17:00] VITALS: BP 155/94
[2016-06-27 17:30] VITALS: BP 144/81
--- NOTE | 2016-06-28 11:14 | DISCHARGE SUMMARY ---
PROCEDURE PHYSICIAN: JORDEN GREER DATE OF PROCEDURE: 06/27/2016 RETRIEVAL OF POST CATH REFERRING PHYSICIAN: Dr. Clark Chicas. BRIEF HISTORY: Mr. Valera was noted to have Port-A-Cath coiled. He used to have Port-A-Cath and it was reported to me that it is fractured and coiled in the right ventricle. I was called for evaluation. The patient was brought to the cardiac catheterization laboratory. PROCEDURE NOTE: After explaining the procedure, I decided to proceed with retrieval device. The patient was placed on the cardiac catheterization laboratory. The right groin was prepped in a sterile fashion. Local anesthesia applied to the right groin. 8-Omani sheath was placed in the right femoral vein. I proceeded with a coiled retrieval device. I used tri-loop ensnare system. Advance it through the 8-Omani sheath in the right femoral artery up to the right atrium. I had significant difficulties receiving the long Port-A-Cath. It appears that the tip of it was in the right ventricle and it was looped around itself in the right atrium extending into the right ventricle again. I was able to push it up to the SVC. Then I proceeded with snaring it and pulled it through the 8-Omani sheath out. It appeared to be fully intact. No residual pieces were noted. At that point sheath was removed and manual pressure applied. No complication noted. CONCLUSION: Successful retrieval of Port-A-Cath device fractured in right ventricle without any complication. FINAL DIAGNOSIS: 1. Fractured Port-A-Cath. 2. Retrieval of foreign object in the right ventricle. Job ID: [id number] Dictated Date: 06/27/2016 15:35:27 Medical Authorization Specialist Date: 06/28/2016 11:12:01/lauren
[2016-07-05] MEDS ORDERED: CFTR1PB IV (08:58)
[2016-07-05] MEDS ORDERED: AMLO10TA2 PO (08:58)
--- OUTSIDE RECORDS SUMMARY | 2016-07-29 17:21 | XMS REPORT | Continuity of Care Document ---
Author Author [facility] Organization [facility] Address Unknown Phone Unavailable Care Team Providers Care Cash Reconciliation Specialist Name Role Phone Jemal Chaudhary PCP [phone] Source Comments Some departments are not documenting in the electronic medical record. If you do not see the information that you expected, contact Release of Information in the Health Information Management department at [phone] for further assistance in locating additional records.[facility] Active Allergies and Adverse Reactions [...] artery disease) Overview: 01/06/09- CABG x 4 ([facility]): Left internal thoracic artery-LAD. SVG-DIAG, SVG-OM1 [...]
--- OUTSIDE RECORDS SUMMARY | 2016-07-29 17:22 | XMS REPORT | Clinical Summary ---
Author Author User, GameriusElyse Organization [facility] Physician [place] Address Unknown Phone Unavailable Allergies, Adverse Reactions, [...] cord injury CONSTIPATION, CHRONIC 564.09 Active Ivet Colon Other constipation HEMATURIA 599.7 Resolved Ivet Colon [...] Coronary atherosclerosis of unspecified type of vessel, [place] or graft CORONARY ARTERY BYPASS GRAFT, FOUR VESSEL, 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 Ivet Colon Postsurgical aortocoronary bypass status ACUTE OSTEOMYELITIS INVOLVING ANKLE AND FOOT 730.07 Active 06/10 Ivet Colon Acute osteomyelitis involving ankle and foot Medication List Medication Instructions Start Date Stop Date Generic Name NDC Status Provider Patient Instruction ALPRAZOLAM 0.5 MG TABS 1 PO Q 8RS PRN ANXIETY ALPRAZOLAM 84968149769 No Longer Active Ivet Catherine Colon ZOFRAN 4 MG/5ML SOLN 8mg IV Q6hrs prn nausea ONDANSETRON HCL 49750763932 No Longer Active Ivet Catherine Colon MELATONIN 3 MG TABS 1 PO AT HS MELATONIN 07246747148 No Longer Active Ivet Catherine Colon CHELATED ZINC 50 MG TABS 1 PO daily ZINC 02599425840 Active Ivet Catherine Colon ZYVOX 100 MG/5ML SUSR 600mg IV Q12 hours LINEZOLID 42537802594 No Longer Active Ivet Catherine Colon CELEXA 20 MG TABS 1 PO daily CITALOPRAM HYDROBROMIDE 69253654341 Active Ivet Catherine Colon HUMALOG KWIKPEN 100 UNIT/ML SOPN 35 UNITS SQ BEFORE MEALS INSULIN LISPRO (HUMAN) 65413104480 Active Ivet Catherine Colon LEVOTHYROXINE SODIUM 200 MCG TABS 1 PO Daily LEVOTHYROXINE SODIUM 34382124562 Active Ivet Catherine Colon LEVEMIR FLEXPEN 100 UNIT/ML SOPN 55 UNITS SQ DAILY INSULIN DETEMIR 18947818637 Active Ivet Catherine Colon AMLODIPINE BESYLATE 10 MG TABS 1 PO DAILY AMLODIPINE BESYLATE 55498215508 Active Ivet Catherine Colon HYDROCODONE-ACETAMINOPHEN 10-325 MG TABS 1 PO Q 4 HRS PRN PAIN HYDROCODONE-ACETAMINOPHEN 76653794179 Active Ivet Catherine Colon CYMBALTA 30 MG CPEP 1 PO BID DULOXETINE HCL 01041713768 No Longer Active Ivet Catherine Colon HYDROCODONE-ACETAMINOPHEN 10-325 MG TABS 1 TAB PO BID PRN PAIN HYDROCODONE-ACETAMINOPHEN 90843842130 No Longer Active Ivet Catherine Colon WELLBUTRIN 75 MG TABS 1 PO BID BUPROPION HCL 20942703112 No Longer Active Ivet Catherine Colon NORVASC 5 MG TABS 1 PO DAILY AMLODIPINE BESYLATE 08459921334 No Longer Active Ivet Catherine Colon NOVOLOG FLEXPEN 100 UNIT/ML SOPN 38 UNITS SQ AC PRN MEALS INSULIN ASPART 89751448151 No Longer Active Ivet Catherine Colon NITROSTAT 0.4 MG SUBL SL DAILY PRN CHEST PAIN NITROGLYCERIN 48148653153 Active Ivet Catherine Colon LOVASTATIN 20 MG TABS 1 PO DAILY LOVASTATIN 28697429506 Active Ivet Catherine Colon ISOSORBIDE MONONITRATE ER 60 MG [id number]-GOV 1 PO DAILY ISOSORBIDE MONONITRATE 66879477473 Active Ivet Catherine Colon PLAVIX 75 MG TABS 1 PO DAILY CLOPIDOGREL BISULFATE 92205622386 Active Ivet Catherine Colon ASPIRIN 325 MG TABS 1 PO DAILY ASPIRIN 86560642403 Active Ivet Catherine Colon SUCRALFATE 1 GM TABS 1 PO AC HS SUCRALFATE 04679495560 Active Ivet Catherine Colon PROTONIX 40 MG TBEC 1 PO BID PANTOPRAZOLE SODIUM 94228050518 Active Ivet Catherine Colon REGLAN 5 MG TABS 1 PO BID AC MEALS METOCLOPRAMIDE HCL 54584128284 Active Ivet Catherine Colon PROPOXYPHENE N-APAP 100-650 MG TABS 1-2 PO Q4hrs prn pain PROPOXYPHENE N-APAP 53828672129 No Longer Active Ivet Catherine Colon METOPROLOL TARTRATE 50 MG TAB 1 PO daily. METOPROLOL TARTRATE 12259594458 No Longer Active Ivet Catherine Colon PLAVIX 75 MG TABS 1 PO QD CLOPIDOGREL BISULFATE 93935140340 No Longer Active Ivet Catherine Colon ASPIRIN 81 MG TAB 1 PO daily ASPIRIN 62927344036 No Longer Active Ivet Catherine Colon TESTOSTERONE CREAM Apply daily TESTOSTERONE CREAM No Longer Active Ivet Catherine Colon PEN NEEDLES 5/16" 31G X 8 MM MISC as directed INSULIN PEN NEEDLE 71397518652 No Longer Active Ivet Catherine Colon WELLBUTRIN SR 150 MG TBCR 1 PO BID BUPROPION HCL No Longer Active Ivet Catherine Colon PERCOCET 5-325 MG TABS 1-2 PO C1ptwkb prn pain OXYCODONE-ACETAMINOPHEN 68776155267 No Longer Active Ivet Catherine Colon NEURONTIN 100 MG CAPS 1 by mouth 3 times a day GABAPENTIN 27978947249 No Longer Active Ivet Catherine Colon SYNTHROID 150 MCG TABS 1 PO daily on empty stomach LEVOTHYROXINE SODIUM 13448607825 No Longer Active Ivet Catherine Colon LOVASTATIN 40 MG TABS 1 PO daily for cholesterol LOVASTATIN 13043237297 No Longer Active Ivetmalachi Colon LOTENSIN 20 MG TABS 1 PO daily BENAZEPRIL HCL 89634169560 No Longer Active Ivet Catherine Colon HUMULIN 70/30 PEN 70-30 % SUSP 25 units injection BID INSULIN ISOPHANE & REGULAR 58106904714 No Longer Active Ivetmalachi Colon SYNTHROID 25 MCG TABS 1 PO daily along with 200 mcg tablet to equal 225. 2008 LEVOTHYROXINE SODIUM 29850539438 No Longer Active Ivet Catherine Colon MIRALAX POWD 1 scoop in 4oz of water PO daily POLYETHYLENE GLYCOL 3350 40700873155 No Longer Active Ivet Catherine Colon MICRONASE 5 MG TABS 2 PO at noon GLYBURIDE 09564866283 No Longer Active Ivet Colon METFORMIN HCL 500 MG TABS 1 PO BID METFORMIN HCL 83387020537 No Longer Active Ivet Colon NAPROXEN 500 MG TAB 1 PO BID NAPROXEN 96702868377 No Longer Active Ivet Colon Vital Signs Date Name Value Unit Range Description blood pressure, diastolic - 8462-4 77 mm[Hg] [...] pressure, diastolic - 8462-4 60 mm[Hg] BP hernandez blood pressure, systolic - [...] /min Resp rate weight E&M - 3141-9 188 [lb_av] Weight Measured Diagnostic Results Date Name Value Unit Range Description Clinical Lists Update: CBC,CMP,CHOL,TRIG,TSH,FREE T4,HGA1C - Chemistry Estimated Glomerular Filtration Rate (calc) 41 mL/min/1.73m2 glucose, plasma fasting 238 mg/dL albumin, serum 3.5 g/dL alkaline phosphatase, serum 96 U/L urea nitrogen, blood 33 mg/dL calcium, serum 8.9 mg/dL chloride, serum 109 mmol/L cholesterol, serum 228 mg/dL anion gap, serum 8 sodium, serum 139 [...] mg/dL carbon dioxide, venous blood 22 mmol/L Clinical Lists Update: CBC,CMP,CHOL,TRIG,TSH,FREE T4,HGA1C - Hematology platelet count 172 10*3/mm3 erythrocyte (RBC) count 3.93 10*6/mm3 leukocyte count, blood 8.6 10*3/mm3 mean corpuscular volume, RBC 91 fL red blood cell distribution width 15.5 % hemoglobin, blood 11.9 g/dL hematocrit, blood 36 % Clinical Lists Update: CBC,CMP,TSH,FREE T4 - Chemistry Estimated Glomerular Filtration Rate (calc) 36 mL/min/1.73m2 glucose, plasma fasting 400 mg/dL anion gap, serum 15 sodium, serum 129 mmol/L bilirubin, serum, total 0.3 mg/dL alanine aminotransferase (SGPT), serum 20 U/L aspartate aminotransferase (SGOT), serum 22 U/L protein, total, serum 5.8 g/dL potassium, serum 4.8 mmol/L thyroid stimulating hormone, serum 24.79 u[iU]/mL thyroxine, serum, free 0.86 ng/dL creatinine, serum 2.1 mg/dL carbon dioxide, venous blood 20.0 mmol/L chloride, serum 99 mmol/L calcium, serum 8.3 mg/dL urea nitrogen, blood 32 mg/dL alkaline phosphatase, serum 126 U/L albumin, serum 3.4 g/dL Clinical Lists Update: CBC,CMP,TSH,FREE T4 - Hematology hemoglobin, blood 12.0 g/dL platelet count 212 10*3/mm3 erythrocyte (RBC) count 4.10 10*6/mm3 leukocyte count, blood 7.5 10*3/mm3 mean corpuscular volume, RBC 93 fL red blood cell distribution width 15.7 % hematocrit, blood 38 % Clinical Lists Update: CBC,CMP,TSH,FREE T4,HGA1C - Chemistry calcium, serum 9.4 mg/dL albumin, serum 3.9 g/dL alkaline phosphatase, serum 112 U/L urea nitrogen, blood 21 mg/dL chloride, serum 98 mmol/L carbon dioxide, venous blood 30.0 mmol/L creatinine, serum 1.4 mg/dL thyroxine, serum, free 0.86 ng/dL hemoglobin A1C, blood, as % of total hemoglobin 8.3 % thyroid stimulating hormone, serum 3.10 u[iU]/mL potassium, serum 3.8 mmol/L protein, total, serum 6.3 g/dL aspartate aminotransferase (SGOT), serum 23 U/L alanine aminotransferase (SGPT), serum 25 U/L bilirubin, serum, total 0.7 mg/dL sodium, serum 135 mmol/L anion gap, serum 11 glucose, plasma fasting 101 mg/dL Estimated Glomerular Filtration Rate (calc) 56 mL/min/1.73m2 Clinical Lists Update: CBC,CMP,TSH,FREE T4,HGA1C - Hematology leukocyte count, blood 9.0 10*3/mm3 erythrocyte (RBC) count 4.61 10*6/mm3 platelet count 219 10*3/mm3 hemoglobin, blood 13.3 g/dL hematocrit, blood 40.9 % red blood cell distribution width 17.9 % mean corpuscular volume, RBC 89 fL Clinical Lists Update: DR [facility] - Chemistry carbon dioxide, venous blood 23 mmol/L creatinine, serum 1.58 mg/dL potassium, serum 4.5 mmol/L chloride, serum 108 mmol/L sodium, serum 138 mmol/L calcium, serum 9.0 mg/dL glucose, plasma fasting 254 mg/dL Estimated Glomerular Filtration Rate (calc) 46 mL/min/1.73m2 urea nitrogen, blood 27 mg/dL Clinical Lists Update: DR [facility] - Hematology hematocrit, blood 40 % hemoglobin, blood 13.4 g/dL platelet count 206 10*3/mm3 erythrocyte (RBC) count 4.53 10*6/mm3 leukocyte count, blood 8.6 10*3/mm3 red blood cell distribution width 15.7 % mean corpuscular volume, RBC 88 fL Clinical Lists Update: [facility] - Chemistry Estimated Glomerular Filtration Rate (calc) 41 mL/min/1.73m2 glucose, plasma fasting 234 mg/dL sodium, serum 138 mmol/L bilirubin, serum, total 0.3 mg/dL alanine aminotransferase (SGPT), serum 23 U/L aspartate aminotransferase (SGOT), serum 16 U/L protein, total, serum 5.8 g/dL potassium, serum 4.4 mmol/L creatinine, serum 1.73 mg/dL carbon dioxide, venous blood 24 mmol/L chloride, serum 104 mmol/L calcium, serum 9.1 mg/dL urea nitrogen, blood 20 mg/dL alkaline phosphatase, serum 105 U/L albumin, serum 3.0 g/dL Clinical Lists Update: [facility] - Hematology red blood cell distribution width 13.4 % mean corpuscular volume, RBC 91 fL leukocyte count, blood 7.0 10*3/mm3 erythrocyte (RBC) count 3.58 10*6/mm3 platelet count 237 10*3/mm3 hemoglobin, blood 10.8 g/dL hematocrit, blood 33 % Clinical Lists Update: MICROALBUMIN - Urinalysis microalbumin, urine, semiquantitative 510.0 mg/dL Office Visit: Dr Colon's Check Up: Established Patient Visit - Chemistry hemoglobin A1C, blood, as % of total hemoglobin 9.2 % Encounters Code Encounter Date Provider Facility CPT-51174 Ofc Vst, Est Level III 18:08:22 CDT Ivet Colon DO, FACP CPT-79375 Ofc Vst, Est Level III 17:49:50 CDT Ivet Colon DO, FACP CPT-27966 Ofc Vst, Est Level III 15:15:23 CDT Ivet Colon DO, FACP CPT-19017 Ofc Vst, Est Level IV 19:30:59 CDT Ivet Colon DO, FACP CPT-39223 Ofc Vst, Est Level IV 21:01:42 CDT Ivet Colon DO, FACP CPT-96040 Ofc Vst, Est Level V 15:04:05 PRODUCT MARKETING MANAGER Ivet Colon [facility] CPT-44155 Ofc Vst, Est Level V 14:38:30 CDT Ivet Catherine Colon [facility] CPT-11911 Ofc Vst, Est Level V 10:17:56 CDT Ivet Catherine Cooney S Isaiah, DO, FACP CPT-83920 Ofc Vst, Est Level V 15:47:26 CDT Ivet Catherine Colon [facility] CPT-60618 Ofc Vst, Est Level V 16:17:13 CDT Ivet Catherine Colon [facility] CPT-14454 Ofc Vst, Est Level IV 15:47:01 CDT Ivet Catherine Hernandezner [facility] CPT-71337 Ofc Vst, Est Level IV 16:34:42 PRODUCT MARKETING MANAGER Ivet Catherine Isaiah Colon, DO, FACP CPT-12751 Ofc Vst, Est Level IV 15:29:06 PRODUCT MARKETING MANAGER Ivet Alexander Isaiah Cooney S Isaiah, DO, FACP CPT-62471 Ofc Vst, Est Level V 15:21:02 PRODUCT MARKETING MANAGER Ivet Catherine Isaiah Colon, DO, FACP CPT-42104 Ofc Vst, Est Level V 14:30:22 PRODUCT MARKETING MANAGER Ivet Catherine Isaiah Colon, DO, FACP CPT-11609 Ofc Vst, New Level II 16:46:35 CDT Ivet Lopezanne Isaiah [facility] Phys[facility] [place] Procedures Code Procedure Name Date Entry Date Standard Description CPT-G0439 Medicare Annual Wellness Visit 15:18:08 CDT
--- OUTSIDE RECORDS SUMMARY | 2016-07-29 17:27 | XMS REPORT | Continuity of Care Document ---
Author Author [facility] Organization [facility] Address Unknown Phone Unavailable Allergies Active Description Code Type Severity Reaction Onset Reported/Identified Relationship to Patient Clinical Status Yes BLOOD PRESSURE MED BLOOD PRESSURE MED Mild N/A 06/09/2009 Yes oxycodone HCl [id number] Drug Allergy Unknown N/A 08/30/2010 Yes protamine [id number] Drug Allergy Unknown N/A 04/23/2014 Yes oxycodone HCl [id number] Drug Allergy Unknown HAS RECEIVED HY 05/21/2014 Medications Problems Date Dx Coded Attending Type Code Diagnosis Diagnosed By EDITH RUTH MD Ot 041.12 METHICILLIN RESISTANT STAPHYLOCOCCUS AUR EDITH RUTH MD Ot 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 EDITH RUTH MD Ot 250.80 DIAB W OTH SPEC MANIFEST, TYPE II OR UNS EDITH RUTH MD Ot 707.14 ULCER OF HEEL AND MIDFOOT EDITH RUTH MD Ot 707.15 ULCER OF OTHER PART OF FOOT 02/21/1134 MIKHAIL CARBAJAL MD Ot E11.621 TYPE 2 DIABETES MELLITUS WITH FOOT ULCER 02/21/1134 MIKHAIL CARBAJAL MD Ot L97.422 NON-PRS CHR ULCER OF LEFT HEEL AND MIDFO 02/21/1199 MIKHAIL CARBAJAL MD Ot E11.621 TYPE 2 DIABETES MELLITUS WITH FOOT ULCER 02/21/1199 MIKHAIL CARBAJAL MD Ot L97.412 NON-PRS CHR ULCER OF RIGHT HEEL AND MIDF 01/05/2009 Ot 397.0 01/05/2009 Ot 424.0 01/05/2009 Ot 780.2 01/05/2009 Ot 786.50 06/26/2009 Ot V45.81 06/26/2009 Ot V57.89 07/04/2009 Ot V45.81 07/04/2009 Ot V57.89 09/27/2009 Ot 250.00 09/27/2009 Ot 272.4 09/27/2009 Ot 305.1 09/27/2009 Ot 401.9 09/27/2009 Ot 413.9 09/27/2009 Ot 786.50 09/27/2009 Ot V45.81 09/27/2009 Ot V58.66 09/27/2009 Ot V58.67 09/27/2009 Ot V58.69 09/01/2010 Ot 244.9 09/01/2010 Ot 250.00 09/01/2010 Ot 272.4 09/01/2010 Ot 305.1 09/01/2010 Ot 401.9 09/01/2010 Ot 414.01 09/01/2010 Ot 414.02 09/01/2010 Ot 414.2 09/01/2010 Ot 440.21 09/01/2010 Ot 794.30 09/01/2010 Ot V45.81 09/01/2010 Ot V58.66 09/01/2010 Ot V58.69 12/20/2010 Ot 413.9 12/20/2010 Ot V45.81 12/20/2010 Ot V57.89 01/17/2012 Ot 250.60 DIAB W NEURO MANIFEST, TYPE II OR UNSPEC 01/17/2012 Ot 707.15 ULCER OF OTHER PART OF FOOT 01/21/2014 FREDDIE BLUM MD Ot 244.9 HYPOTHYROIDISM NOS 01/21/2014 FREDDIE BLUM MD Ot 250.00 DIAB CONRADO WO COMPL, TYPE II OR UNSPEC TY 01/21/2014 FREDDIE BLUM MD Ot 272.4 HYPERLIPIDEMIA NEC/NOS 01/21/2014 FREDDIE BLUM MD Ot 278.00 OBESITY, NOS 01/21/2014 FREDDIE BLUM MD Ot 305.1 TOBACCO USE DISORDER 01/21/2014 FREDDIE BLUM MD Ot 403.90 HYPTNSV CHR KID DIS, UNSPEC, W CHR KD ST 01/21/2014 FREDDIE BULM MD Ot 412 OLD MYOCARDIAL INFARCT 01/21/2014 FREDDIE BLUM MD Ot 414.00 CORON ATHEROSCLER NOS TYPE VESSEL, NATIV 01/21/2014 FREDDIE BLUM MD Ot 440.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 01/21/2014 FREDDIE BLUM MD Ot 443.9 PERIPH VASCULAR DIS NOS 01/21/2014 FREDDIE BLUM MD Ot 585.9 CHRONIC KIDNEY DISEASE, UNSPECIFIED 01/21/2014 FREDDIE BLUM MD Ot 794.4 ABN KIDNEY FUNCT STUDY 01/21/2014 FREDDIE BLUM MD Ot V45.81 AORTOCORONARY BYPASS 01/21/2014 FREDDIE BLUM MD Ot V49.72 OTHER TOE(S) AMPUTATION STATUS 01/21/2014 FREDDIE BLUM MD Ot V85.30 BODY MASS INDEX 30.0-30.9, ADULT 02/05/2014 FREDDIE BLUM MD Ot 440.20 02/05/2014 FREDDIE BLUM MD Ot 729.5 02/05/2014 FREDDIE BLUM MD Ot V64.1 02/11/2014 FREDDIE BLUM MD Ot 305.1 TOBACCO USE DISORDER 02/11/2014 FREDDIE BLUM MD Ot 440.20 ATHEROSCLEROSIS NAVAJO ARTERIES EXTREMIT 02/11/2014 FREDDIE BLUM MD Ot 707.15 ULCER OF OTHER PART OF FOOT 02/11/2014 FREDDIE BLUM MD Ot 729.5 PAIN IN LIMB 02/11/2014 FREDDIE BLUM MD Ot V58.63 LONG-TERM(CURRENT)USE OF ANTIPLATELET/ AN 02/11/2014 FREDDIE BLUM MD Ot V58.67 LONG-TERM (CURRENT) USE OF INSULIN 02/11/2014 FREDDIE BLUM MD Ot V58.69 OTH MED,LT,CURRENT USE 02/11/2014 FREDDIE BLUM MD Ot V64.1 NO PROC/CONTRAINDICATION 02/15/2014 FLORY QUINTANILLA, EDITH Lane Ot 709.8 02/17/2014 FREDDIE BLUM MD Ot 790.99 02/24/2014 Ot 397.0 02/24/2014 Ot 414.00 02/24/2014 Ot 424.0 02/24/2014 Ot 443.9 02/24/2014 Ot 786.50 02/24/2014 Ot V45.81 02/24/2014 Ot 414.00 02/24/2014 Ot 443.9 02/24/2014 Ot 786.50 02/24/2014 Ot V45.81 02/24/2014 Ot 272.4 02/24/2014 Ot 433.30 02/24/2014 Ot 780.4 02/24/2014 Ot 250.00 02/24/2014 Ot 729.5 02/24/2014 Ot 414.00 02/24/2014 Ot 433.10 02/24/2014 Ot 433.30 02/24/2014 Ot 780.2 02/24/2014 Ot 414.00 02/24/2014 Ot 780.2 02/24/2014 Ot 250.60 02/24/2014 Ot 707.15 02/24/2014 SHAYNA MCKAY Ot 278.00 02/24/2014 SHAYNA MCKAY Ot 401.9 02/24/2014 SHAYNA MCKAY Ot 414.00 02/24/2014 BRANDI QUINTANILLA, PHAN Aguero Ot 414.9 02/24/2014 BRANDI QUINTANILLA, PHAN Aguero Ot 585.9 02/24/2014 PHAN PAZ MD Ot V72.81 02/24/2014 VIKTORIA QUINTANILLA, FREDDIE Traore Ot 440.20 02/24/2014 VIKTORIA QUINTANILLA, FREDDIE Traore Ot 729.5 02/24/2014 VIKTORIA QUINTANILLA, FREDDIE Traore Ot V64.1 02/24/2014 VIKTORIA QUINTANILLA, FREDDIE Traore Ot 790.99 02/24/2014 EDITH RUTH MD Ot 709.8 02/25/2014 VIKTORIA QUINTANILLA, FREDDIE Traore Ot 440.20 02/25/2014 FREDDIE BLUM MD Ot 585.9 02/26/2014 FREDDIE BLUM MD Ot 440.20 02/26/2014 VIKTORIA QUINTANILLA, FREDDIE Traore Ot 585.9 02/27/2014 FREDDIE BLUM MD Ot 440.23 ATHEROSCL NAVAJO ARTER EXTREMITIES W ULC 02/27/2014 VIKTORIA QUINTANILLA, FREDDIE Traore Ot 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 02/27/2014 FREDDIE BLUM MD Ot 585.9 CHRONIC KIDNEY DISEASE, UNSPECIFIED 02/27/2014 FREDDIE BLUM MD Ot 707.15 ULCER OF OTHER PART OF FOOT 03/03/2014 EDITH RUTH MD Ot 709.8 03/08/2014 EDITH RUTH MD Ot 709.8 03/09/2014 PHAN PAZ MD Ot 414.9 03/09/2014 PHAN PAZ MD Ot 585.9 03/09/2014 PHAN PAZ MD Ot V72.81 03/13/2014 EDITH RUTH MD Ot 709.8 03/16/2014 EDITH RUTH MD Ot 709.8 03/18/2014 VIKTORIA QUNITANILLA, FREDDIE Traore Ot 250.70 DIAB W PERIPH CIRC DIS, TYPE II OR UNSPE 03/18/2014 FREDDIE BLUM MD Ot 440.23 ATHEROSCL NAVAJO ARTER EXTREMITIES W ULC 03/18/2014 VIKTORIA QUINTANILLA, FREDDIE Traore Ot 443.81 ANGIOPATHY IN OTHER DIS 03/18/2014 FREDDIE BLUM MD Ot 707.15 ULCER OF OTHER PART OF FOOT 04/01/2014 EDITH RUTH MD Ot 250.70 DIAB W PERIPH CIRC DIS, TYPE II OR UNSPE 04/01/2014 EDITH URTH MD Ot 278.00 OBESITY, NOS 04/01/2014 EDITH RTUH MD Ot 305.1 TOBACCO USE DISORDER 04/01/2014 EDITH RUTH MD Ot 403.90 HYPTNSV CHR KID DIS, UNSPEC, W CHR KD ST 04/01/2014 EDITH RUTH MD Ot 412 OLD MYOCARDIAL INFARCT 04/01/2014 EDITH RUTH MD Ot 414.00 CORON ATHEROSCLER NOS TYPE VESSEL, NATIV 04/01/2014 EDITH RUTH MD Ot 443.9 PERIPH VASCULAR DIS NOS 04/01/2014 EDITH RUTH MD Ot 585.9 CHRONIC KIDNEY DISEASE, UNSPECIFIED 04/01/2014 EDITH RUTH MD Ot 682.7 CELLULITIS OF FOOT 04/01/2014 EDITH RUTH MD Ot 707.15 ULCER OF OTHER PART OF FOOT 04/01/2014 EDITH RUTH MD Ot 709.8 04/30/2014 FREDDIE BLUM MD Ot 038.9 04/30/2014 VIKTORIA QUINTANILLA, FREDDIE Traore Ot 250.60 04/30/2014 VIKTORIA QUINTANILLA, FREDDIE Traore Ot 250.70 04/30/2014 VIKTORIA QUINTANILLA, FREDDIE S Ot 250.80 04/30/2014 VIKTORIA QUINTANILLA, FREDDIE S Ot 272.4 04/30/2014 VIKTORIA QUINTANILLA, FREDDIE S Ot 276.1 04/30/2014 FREDDIE BLUM MD S Ot 285.9 04/30/2014 VIKTORIA QUINTANILLA, FREDDIE Traore Ot 305.1 04/30/2014 VIKTORIA QUINTANILLA, FREDDIE S Ot 311 04/30/2014 VIKTORIA QUINTANILLA, FREDDIE S Ot 357.2 04/30/2014 VIKTORIA QUINTANILLA, FREDDIE S Ot 403.90 04/30/2014 VIKTORIA QUINTANILLA, FREDDIE S Ot 440.1 04/30/2014 VIKTORIA QUINTANILLA, FREDDIE S Ot 440.24 04/30/2014 VIKTORIA QUINTANILLA, FREDDIE S Ot 443.29 04/30/2014 VIKTORIA QUINTANILLA, FREDDIE S Ot 496 04/30/2014 VIKTORIA QUINTANILLA, FREDDIE S Ot 511.9 04/30/2014 VIKTORIA QUINTANILLA, FREDDIE S Ot 536.3 04/30/2014 VIKTORIA QUINTANILLA, FREDDIE S Ot 585.9 04/30/2014 VIKTORIA QUINTANILLA, FREDDIE S Ot 682.7 04/30/2014 VIKTORIA QUINTANILLA, FREDDIE S Ot 715.89 04/30/2014 VIKTORIA QUINTANILLA, FREDDIE S Ot 724.5 04/30/2014 VIKTORIA QUINTANILLA, FREDDIE S Ot 731.8 04/30/2014 VIKTORIA QUINTANILLA, FREDDIE S Ot 785.4 04/30/2014 VIKTORIA QUINTANILLA, FREDDIE S Ot 785.52 04/30/2014 VIKTORIA QUINTANILLA, FREDDIE S Ot 995.92 04/30/2014 VIKTORIA QUINTANILLA, FREDDIE S Ot V15.81 04/30/2014 VIKTORIA QUINTANILLA, FREDDIE S Ot V49.72 04/30/2014 VIKTORIA QUINTANILLA, FREDDIE S Ot 038.9 04/30/2014 VIKTORIA QUINTANILLA, FREDDIE S Ot 250.60 04/30/2014 VIKTORIA QUINTANILLA, FREDDIE S Ot 250.70 04/30/2014 VIKTORIA QUINTANILLA, FREDDIE S Ot 250.80 04/30/2014 VIKTORIA QUINTANILLA, FREDDIE S Ot 272.4 04/30/2014 VIKTORIA QUINTANILLA, FREDDIE S Ot 276.1 04/30/2014 VIKTORIA QUINTANILLA, FREDDIE S Ot 285.9 04/30/2014 VIKTORIA QUINTANILLA, FREDDIE S Ot 305.1 04/30/2014 VIKTORIA QUINTANILLA, FREDDIE S Ot 311 04/30/2014 VIKTORIA QUINTANILLA, FREDDIE S Ot 357.2 04/30/2014 VIKTORIA QUINTANILLA, FREDDIE S Ot 403.90 04/30/2014 VIKTORIA QUINTANILLA, FREDDIE S Ot 440.1 04/30/2014 VIKTORIA QUINTANILLA, FREDDIE S Ot 440.24 04/30/2014 VIKTORIA QUINTANILLA, FREDDIE S Ot 443.29 04/30/2014 VIKTORIA QUINTANILLA, FREDDIE S Ot 496 04/30/2014 VIKTORIA QUINTANILLA, FREDDIE S Ot 511.9 04/30/2014 VIKTORIA QUINTANILLA, FREDDIE S Ot 536.3 04/30/2014 VIKTORIA QUINTANILLA, FREDDIE S Ot 585.9 04/30/2014 VIKTORIA QUINTANILLA, FREDDIE S Ot 682.7 04/30/2014 VIKTORIA QUINTANILLA, FREDDIE S Ot 715.89 04/30/2014 VIKTORIA QUINTANILLA, FREDDIE S Ot 724.5 04/30/2014 VIKTORIA QUINTANILLA, FREDDIE S Ot 731.8 04/30/2014 VIKTORIA QUINTANILLA, FREDDIE S Ot 785.4 04/30/2014 VIKTORIA QUINTANILLA, FREDDIE S Ot 785.52 04/30/2014 VIKTORIA QUINTANILLA, FREDDIE S Ot 995.92 04/30/2014 VIKTORIA QUINTANILLA, FREDDIE S Ot V15.81 04/30/2014 VIKTORIA QUINTANILLA, FREDDIE S Ot V49.72 05/02/2014 VIKTORIA QUINTANILLA, FREDDIE S Ot 038.9 05/02/2014 VIKTORIA QUINTANILLA, FREDDIE S Ot 250.60 05/02/2014 VIKTORIA QUINTANILLA, FREDDIE S Ot 250.70 05/02/2014 VIKTORIA QUINTANILLA, FREDDIE S Ot 250.80 05/02/2014 VIKTORIA QUINTANILLA, FREDDIE S Ot 272.4 05/02/2014 VIKTORIA QUINTANILLA, FREDDIE S Ot 276.1 05/02/2014 VIKTORIA QUINTANILLA, FREDDIE S Ot 285.9 05/02/2014 VIKTORIA QUINTANILLA, FREDDIE S Ot 305.1 05/02/2014 VIKTORIA QUINTANILLA, FREDDIE S Ot 311 05/02/2014 VIKTORIA QUINTANILLA, FREDDIE S Ot 357.2 05/02/2014 VIKTORIA QUINTANILLA, FREDDIE S Ot 403.90 05/02/2014 VIKTORIA QUINTANILLA, FREDDIE S Ot 440.1 05/02/2014 VIKTORIA QUINTANILLA, FREDDIE S Ot 440.24 05/02/2014 VIKTORIA QUINTANILLA, FREDDIE S Ot 443.29 05/02/2014 VIKTORIA QUINTANILLA, FREDDIE S Ot 496 05/02/2014 VIKTORIA QUINTANILLA, FREDDIE S Ot 511.9 05/02/2014 VIKTORIA QUINTANILLA, FREDDIE S Ot 536.3 05/02/2014 VIKTORIA QUINTANILLA, FREDDIE S Ot 585.9 05/02/2014 VIKTORIA QUINTANILLA, FREDDIE S Ot 682.7 05/02/2014 VIKTORIA QUINTANILLA, FREDDIE S Ot 715.89 05/02/2014 VIKTORIA QUINTANILLA, FREDDIE S Ot 724.5 05/02/2014 VIKTORIA QUINTANILLA, FREDDIE S Ot 731.8 05/02/2014 VIKTORIA QUINTANILLA, FREDDIE S Ot 785.4 05/02/2014 VIKTORIA QUINTANILLA, FREDDIE S Ot 785.52 05/02/2014 VIKTORIA QUINTANILLA, FREDDIE S Ot 995.92 05/02/2014 VIKTORIA QUINTANILLA, FREDDIE S Ot V15.81 05/02/2014 VIKTORIA QUINTANILLA, FREDDIE S Ot V49.72 05/03/2014 VIKTORIA QUINTANILLA, FREDDIE S Ot 038.9 05/03/2014 VIKTORIA QUINTANILLA, FREDDIE S Ot 250.60 05/03/2014 VIKTORIA QUINTANILLA, FREDDIE S Ot 250.70 05/03/2014 VIKTORIA QUINTANILLA, FREDDIE S Ot 250.80 05/03/2014 VIKTORIA QUINTANILLA, FREDDIE S Ot 272.4 05/03/2014 VIKTORIA QUINTANILLA, FREDDIE S Ot 276.1 05/03/2014 VIKTORIA QUINTANILLA, FREDDIE S Ot 285.9 05/03/2014 VIKTORIA QUINTANILLA, FREDDIE S Ot 305.1 05/03/2014 VIKTORIA QUNITANILLA, FREDDIE S Ot 311 05/03/2014 VIKTORIA QUINTANILLA, FREDDIE S Ot 357.2 05/03/2014 VIKTORIA QUINTANILLA, FREDDIE S Ot 403.90 05/03/2014 VIKTORIA QUINTANILLA, FREDDIE S Ot 440.1 05/03/2014 VIKTORIA QUINTANILLA, FREDDIE S Ot 440.24 05/03/2014 VIKTORIA QUINTANILLA, FREDDIE S Ot 443.29 05/03/2014 VIKTORIA QUINTANILLA, FREDDIE S Ot 496 05/03/2014 VIKTORIA QUINTANILLA, FREDDIE S Ot 511.9 05/03/2014 VIKTORIA QUINTANILLA, FREDDIE S Ot 536.3 05/03/2014 VIKTORIA QUINTANILLA, FREDDIE S Ot 585.9 05/03/2014 VIKTORIA QUINTANILLA, FREDDIE S Ot 682.7 05/03/2014 VIKTORIA QUINTANILLA, FREDDIE S Ot 715.89 05/03/2014 VIKTORIA QUINTANILLA, FREDDIE S Ot 724.5 05/03/2014 VIKTORIA QUINTANILLA, FREDDIE S Ot 731.8 05/03/2014 VIKTORIA QUINTANILLA, FREDDIE S Ot 785.4 05/03/2014 VIKTORIA QUINTANILLA, FREDDIE S Ot 785.52 05/03/2014 VIKTORIA QUINTANILLA, FREDDIE S Ot 995.92 05/03/2014 VIKTORIA QUINTANILLA, FREDDIE S Ot V15.81 05/03/2014 VIKTORIA QUINTANILLA, FREDDIE S Ot V49.72 05/03/2014 VIKTORIA QUINTANILLA, FREDDIE S Ot 038.9 05/03/2014 VIKTORIA QUINTANILLA, FREDDIE S Ot 250.60 05/03/2014 VIKTORIA QUINTANILLA, FREDDIE S Ot 250.70 05/03/2014 VIKTORIA QUINTANILLA, FREDDIE S Ot 250.80 05/03/2014 VIKTORIA QUINTANILLA, FREDDIE S Ot 272.4 05/03/2014 VIKTORIA QUINTANILLA, FREDDIE S Ot 276.1 05/03/2014 VIKTORIA QUINTANILLA, FREDDIE S Ot 285.9 05/03/2014 VIKTORIA QUINTANILLA, FREDDIE S Ot 305.1 05/03/2014 VIKTORIA QUINTANILLA, FREDDIE S Ot 311 05/03/2014 VIKTORIA QUINTANILLA, FREDDIE S Ot 357.2 05/03/2014 VIKTORIA QUINTANILLA, FREDDIE S Ot 403.90 05/03/2014 VIKTORIA QUINTANILLA, FREDDIE S Ot 440.1 05/03/2014 VIKTORIA QUINTANILLA, FREDDIE S Ot 440.24 05/03/2014 VIKTORIA QUINTANILLA, FREDDIE S Ot 443.29 05/03/2014 VIKTORIA QUINTANILLA, FREDDIE S Ot 496 05/03/2014 VIKTORIA QUINTANILLA, FREDDIE S Ot 511.9 05/03/2014 VIKTORIA QUINTANILLA, FREDDIE S Ot 536.3 05/03/2014 VIKTORIA QUINTANILLA, FREDDIE S Ot 585.9 05/03/2014 VIKTORIA QUINTANILLA, FREDDIE S Ot 682.7 05/03/2014 VIKTORIA QUINTANILLA, FREDDIE S Ot 715.89 05/03/2014 VIKTORIA QUINTANILLA, FREDDIE S Ot 724.5 05/03/2014 VIKTORIA QUINTANILLA, FREDDIE S Ot 731.8 05/03/2014 VIKTORIA QUINTANILLA, FREDDIE S Ot 785.4 05/03/2014 VIKTORIA QUINTANILLA, FREDDIE S Ot 785.52 05/03/2014 VIKTORIA QUINTANILLA, FREDDIE S Ot 995.92 05/03/2014 VIKTORIA QUINTANILLA, FREDDIE S Ot V15.81 05/03/2014 VIKTORIA QUINTANILLA, FREDDIE S Ot V49.72 05/04/2014 VIKTORIA QUINTANILLA, FREDDIE S Ot 038.9 05/04/2014 VIKTORIA QUINTANILLA, FREDDIE S Ot 250.60 05/04/2014 VIKTORIA QUINTANILLA, FREDDIE S Ot 250.70 05/04/2014 VIKTORIA QUINTANILLA, FREDDIE S Ot 250.80 05/04/2014 VIKTORIA QUINTANILLA, FREDDIE S Ot 272.4 05/04/2014 VIKTORIA QUINTANILLA, FREDDIE S Ot 276.1 05/04/2014 VIKTORIA QUINTANILLA, FREDDIE S Ot 285.9 05/04/2014 VIKTORIA QUINTANILLA, FREDDIE S Ot 305.1 05/04/2014 VIKTORIA QUINTANILLA, FREDDIE S Ot 311 05/04/2014 VIKTORIA QUINTANILLA, FREDDIE S Ot 357.2 05/04/2014 VIKTORIA QUINTANILLA, FREDDIE S Ot 403.90 05/04/2014 VIKTORIA QUINTANILLA, FREDDIE S Ot 440.1 05/04/2014 VIKTORIA QUINTANILLA, FREDDIE S Ot 440.24 05/04/2014 VIKTORIA QUINTANILLA, FREDDIE S Ot 443.29 05/04/2014 VIKTORIA QUINTANILLA, FREDDIE S Ot 496 05/04/2014 VIKTORIA QUINTANILLA, FREDDIE S Ot 511.9 05/04/2014 VIKTORIA QUINTANILLA, FREDDIE S Ot 536.3 05/04/2014 VIKTORIA QUINTANILLA, FREDDIE S Ot 585.9 05/04/2014 VIKTORIA QUINTANILLA, FREDDIE S Ot 682.7 05/04/2014 VIKTORIA QUINTANILLA, FREDDIE S Ot 715.89 05/04/2014 VIKTORIA QUINTANILLA, FREDDIE S Ot 724.5 05/04/2014 VIKTORIA QUINTANILLA, FREDDIE S Ot 785.4 05/04/2014 VIKTORIA QUINTANILLA, FREDDIE S Ot 785.52 05/04/2014 VIKTORIA QUINTANILLA, FREDDIE S Ot 995.92 05/04/2014 VIKTORIA QUINTANILLA, FREDDIE S Ot V15.81 05/04/2014 VIKTORIA QUINTANILLA, FREDDIE S Ot V49.72 05/04/2014 VIKTORIA QUINATNILLA, FREDDIE S Ot 038.9 05/04/2014 VIKTORIA QUINTANILLA, FREDDIE S Ot 250.60 05/04/2014 VIKTORIA QUINTANILLA, FREDDIE S Ot 250.70 05/04/2014 VIKTORIA QUINTANILLA, FREDDIE S Ot 250.80 05/04/2014 VIKTORIA QUINTANILLA, FREDDIE S Ot 272.4 05/04/2014 VIKTORIA QUINTANILLA, FREDDIE S Ot 276.1 05/04/2014 VIKTORIA QUINTANILLA, FREDDIE S Ot 285.9 05/04/2014 VIKTORIA QUINTANILLA, FREDDIE S Ot 305.1 05/04/2014 VIKTORIA QUINTANILLA, FREDDIE S Ot 311 05/04/2014 VIKTORIA QUINTANILLA, FREDDIE S Ot 357.2 05/04/2014 VIKTORIA QUINTANILLA, FREDDIE S Ot 403.90 05/04/2014 VIKTORIA QUINTANILLA, FREDDIE S Ot 440.1 05/04/2014 VIKTORIA QUINTANILLA, FREDDIE S Ot 440.24 05/04/2014 VIKTORIA QUINTANILLA, FREDDIE S Ot 443.29 05/04/2014 VIKTORIA QUINTANILLA, FREDDIE S Ot 496 05/04/2014 VIKTORIA QUINTANILLA, FREDDIE S Ot 511.9 05/04/2014 VIKTORIA QUINTANILLA, FREDDIE S Ot 536.3 05/04/2014 VIKTORIA QUINTANILLA, FREDDIE S Ot 585.9 05/04/2014 VIKTORIA QUINTANILLA, FREDDIE S Ot 682.7 05/04/2014 VIKTORIA QUINTANILLA, FREDDIE S Ot 715.89 05/04/2014 VIKTORIA QUINTANILLA, FREDDIE S Ot 724.5 05/04/2014 VIKTORIA QUINTANILLA, FREDDIE S Ot 785.4 05/04/2014 VIKTORIA QUINTANILLA, FREDDIE S Ot 785.52 05/04/2014 VIKTORIA QUINTANILLA, FREDDIE S Ot 995.92 05/04/2014 VIKTORIA QUINTANILLA, FREDDIE S Ot V15.81 05/04/2014 VIKTORIA QUINTANILLA, FREDDIE S Ot V49.72 05/04/2014 VIKTORIA QUINTANILLA, FREDDIE S Ot 038.9 05/04/2014 VIKTORIA QUINTANILLA, FREDDIE S Ot 250.60 05/04/2014 VIKTORIA QUINTANILLA, FREDDIE S Ot 250.70 05/04/2014 VIKTORIA QUINTANILLA, FREDDIE S Ot 250.80 05/04/2014 VIKTORIA QUINTANILLA, FREDDIE S Ot 272.4 05/04/2014 VIKTORIA QUINTANILLA, FREDDIE S Ot 276.1 05/04/2014 VIKTORIA QUINTANILLA, FREDDIE S Ot 285.9 05/04/2014 VIKTORIA QUINTANILLA, FREDDIE S Ot 305.1 05/04/2014 VIKTORIA QUINTANILLA, FREDDIE S Ot 311 05/04/2014 VIKTORIA QUINTANILLA, FREDDIE S Ot 357.2 05/04/2014 VIKTORIA QUINTANILLA, FREDDIE S Ot 403.90 05/04/2014 VIKTORIA QUINTANILLA, FREDDIE S Ot 440.1 05/04/2014 VIKTORIA QUINTANILLA, FREDDIE S Ot 440.24 05/04/2014 VIKTORIA QUINTANILLA, FREDDIE S Ot 443.29 05/04/2014 VIKTORIA QUINTANILLA, FREDDIE S Ot 496 05/04/2014 VIKTORIA QUINTANILLA, FREDDIE S Ot 511.9 05/04/2014 VIKTORIA QUINTANILLA, FREDDIE S Ot 536.3 05/04/2014 VIKTORIA QUINTANILLA, FREDDIE S Ot 585.9 05/04/2014 VIKTROIA QUINTANILLA, FREDDIE S Ot 682.7 05/04/2014 VIKTORIA QUINTANILLA, FREDDIE S Ot 715.89 05/04/2014 VIKTORIA QUINTANILLA, FREDDIE S Ot 724.5 05/04/2014 VIKTORIA QUINTANILLA, FREDDIE S Ot 785.4 05/04/2014 VIKTORIA QUINTANILLA, FREDDIE S Ot 785.52 05/04/2014 VIKTORIA QUINTANILLA, FREDDIE S Ot 995.92 05/04/2014 VIKTORIA QUINTANILLA, FREDDIE S Ot V15.81 05/04/2014 VIKTORIA QUINTANILLA, FREDDIE S Ot V49.72 05/05/2014 VIKTORIA QUINTANILLA, FREDDIE S Ot 038.9 05/05/2014 VIKTORIA QUINTANILLA, FREDDIE S Ot 250.60 05/05/2014 VIKTORIA QUINTANILLA, FREDDIE S Ot 250.70 05/05/2014 VIKTORIA QUINTANILLA, FREDDIE S Ot 250.80 05/05/2014 VIKTORIA QUINTANILLA, FREDDIE S Ot 272.4 05/05/2014 VIKTORIA QUINTANILLA, FREDDIE S Ot 276.1 05/05/2014 VIKTORIA QUINTANILLA, FREDDIE S Ot 285.9 05/05/2014 VIKTORIA QIUNTANILLA, FREDDIE S Ot 305.1 05/05/2014 VIKTORIA QUINTANILLA, FREDDIE S Ot 311 05/05/2014 VIKTORIA QUINTANILLA, FREDDIE S Ot 357.2 05/05/2014 VIKTORIA QUINTANILLA, FREDDIE S Ot 403.90 05/05/2014 VIKTORIA QUINTANILLA, FREDDIE S Ot 440.1 05/05/2014 VIKTORIA QUINTANILLA, FREDDIE S Ot 440.24 05/05/2014 VIKTORIA QUINTANILLA, FREDDIE S Ot 443.29 05/05/2014 VIKTORIA QUINTANILLA, FREDDIE S Ot 496 05/05/2014 VIKTORIA QUINTANILLA, FREDDIE S Ot 511.9 05/05/2014 VIKTORIA QUINTANILLA, FREDDIE S Ot 536.3 05/05/2014 VIKTORIA QUINTANILLA, FREDDIE S Ot 585.9 05/05/2014 VIKTORIA QUINTANILLA, FREDDIE S Ot 682.7 05/05/2014 VIKTORIA QUINTANILLA, FREDDIE S Ot 715.89 05/05/2014 VIKTORIA QUINTANILLA, FREDDIE S Ot 724.5 05/05/2014 VIKTORIA QUINTANILLA, FREDDIE S Ot 785.4 05/05/2014 VIKTORIA QUINTANILLA, FREDDIE S Ot 785.52 05/05/2014 VIKTORIA QUINTANILLA, FREDDIE S Ot 995.92 05/05/2014 VIKTORIA QUINTANILLA, FREDDIE S Ot V15.81 05/05/2014 VIKTORIA QUINTANILLA, FREDDIE S Ot V49.72 05/06/2014 VIKTORIA QUINTANILLA, FREDDIE S Ot 038.9 05/06/2014 VIKTORIA QUINTANILLA, FREDDIE S Ot 250.60 05/06/2014 VIKTORIA QUINTANILLA, FREDDIE S Ot 250.70 05/06/2014 VIKTORIA QUINTANILLA, FREDDIE S Ot 250.80 05/06/2014 VIKTORIA QUINTANILLA, FREDDIE S Ot 272.4 05/06/2014 VIKTORIA QUINTANILLA, FREDDIE S Ot 276.1 05/06/2014 VIKTORIA QUINTANILLA, FREDDIE S Ot 285.9 05/06/2014 VIKTORIA QUINTANILLA, FREDDIE S Ot 305.1 05/06/2014 VIKTORIA QUINTANILLA, FREDDIE S Ot 311 05/06/2014 VIKTORIA QUINTANILLA, FREDDIE S Ot 357.2 05/06/2014 VIKTORIA QUINTANILLA, FREDDIE S Ot 403.90 05/06/2014 VIKTORIA QUINTANILLA, FREDDIE S Ot 440.1 05/06/2014 VIKTORIA QUINTANILLA, FREDDIE S Ot 440.24 05/06/2014 VIKTORIA QUINTANILLA, FREDDIE S Ot 443.29 05/06/2014 VIKTORIA QUINTANILLA, FREDDIE Traore Ot 496 05/06/2014 VIKTORIA QUINTANILLA, FREDDIE Traore Ot 511.9 05/06/2014 VIKTORIA QUINTANILLA, FREDDIE Traore Ot 536.3 05/06/2014 VIKTORIA QUINTANILLA, FREDDIE Traore Ot 585.9 05/06/2014 VIKTORIA QUINTANILLA, FREDDIE Traore Ot 682.7 05/06/2014 VIKTORIA QUINTANILLA, FREDDIE Traore Ot 715.89 05/06/2014 VIKTORIA QUINTANILLA, FREDDIE Traore Ot 724.5 05/06/2014 VIKTORIA QUINTANILLA, FREDDIE Traore Ot 785.4 05/06/2014 VIKTORIA QUINTANILLA, FREDDIE Traore Ot 785.52 05/06/2014 VIKTORIA QUINTANILLA, FREDDIE Traore Ot 995.92 05/06/2014 VIKTORIA QUINTANILLA, FREDDIE Traore Ot V15.81 05/06/2014 VIKTORIA QUINTANILLA, FREDDIE Traore Ot V49.72 05/06/2014 VIKTORIA QUINTANILLA, FREDDIE Traore Ot 038.9 SEPTICEMIA NOS 05/06/2014 VIKTORIA QUINTANILLA, FREDDIE Traore Ot 250.60 DIAB W NEURO MANIFEST, TYPE II OR UNSPEC 05/06/2014 VIKTORIA QUINTANILLA, FREDDIE S Ot 250.70 DIAB W PERIPH CIRC DIS, TYPE II OR UNSPE 05/06/2014 VIKTORIA QUINTANILLA, FREDDIE Traore Ot 250.80 DIAB W OTH SPEC MANIFEST, TYPE II OR UNS 05/06/2014 VIKTORIA QUINTANILLA, FREDDIE S Ot 272.4 HYPERLIPIDEMIA NEC/NOS 05/06/2014 FREDDIE BLUM MD S Ot 276.1 HYPOSMOLALITY 05/06/2014 FREDDIE BLUM MD Ot 285.9 ANEMIA NOS 05/06/2014 VIKTORIA QUINTANILLA, FREDDIE S Ot 305.1 TOBACCO USE DISORDER 05/06/2014 FREDDIE BLUM MD S Ot 311 DEPRESSIVE DISORDER NEC 05/06/2014 VIKTORIA QUINTANILLA, FREDDIE S Ot 357.2 NEUROPATHY IN DIABETES 05/06/2014 VIKTORIA QUINTANILLA, FREDDIE S Ot 403.90 HYPTNSV CHR KID DIS, UNSPEC, W CHR KD ST 05/06/2014 FREDDIE BLUM MD S Ot 440.1 RENAL ARTERY ATHEROSCLER 05/06/2014 FREDDIE BLUM MD S Ot 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 05/06/2014 FREDDIE BLUM MD S Ot 443.29 DISSECTION OF OTHER ARTERY 05/06/2014 VIKTORIA QUINTANILLA, FREDDIE Traore Ot 496 CHR AIRWAY OBSTRUCT NEC 05/06/2014 VIKTORIA QUINTANILLA, FREDDIE Traore Ot 511.9 PLEURAL EFFUSION NOS 05/06/2014 VIKOTRIA QUINTANILLA, FREDDIE Traore Ot 536.3 GASTROPARESIS 05/06/2014 VIKTORIA QUINTANILLA, FREDDIE Traore Ot 585.9 CHRONIC KIDNEY DISEASE, UNSPECIFIED 05/06/2014 VIKTORIA QUINTANILLA, FREDDIE Traore Ot 682.7 CELLULITIS OF FOOT 05/06/2014 VIKTORIA QUINTANILLA, FREDDIE Traore Ot 715.89 OSTEOARTHROSIS-MULT SITE 05/06/2014 VIKTORIA QUINTANILLA, FREDDIE Traore Ot 724.5 BACKACHE NOS 05/06/2014 VIKTORIA QUINTANILLA, FREDDIE Traore Ot 785.4 GANGRENE 05/06/2014 VIKTORIA QUINTANILLA, FREDDIE Traore Ot 785.52 SEPTIC SHOCK 05/06/2014 VIKTORIA QUINTANILLA, FREDDIE Traore Ot 995.92 SEVERE SEPSIS 05/06/2014 VIKTORIA QUINTANILLA, FREDDIE Traore Ot V15.81 HX OF PAST NONCOMPLIANCE 05/06/2014 VIKTORIA QUINTANILLA, FREDDIE [place] Ot V49.72 OTHER TOE(S) AMPUTATION STATUS 05/10/2014 SOLANO DO, ABIODUN Ot 038.9 05/10/2014 SOLANO DO, ABIODUN Ot 250.60 05/10/2014 SOLANO DO, ABIODUN Ot 250.70 05/10/2014 SOLANO DO, ABIODUN Ot 272.4 05/10/2014 SOLANO DO, ABIODUN Ot 305.1 05/10/2014 SOLANO DO, ABIODUN Ot 357.2 05/10/2014 SOLANO DO, ABIODUN Ot 403.90 05/10/2014 SOLANO DO, ABIODUN Ot 496 05/10/2014 SOLANO DO, ABIODUN Ot 585.9 05/10/2014 SOLANO DO, ABIODUN Ot 682.7 05/10/2014 SOLANO DO, ABIODUN Ot 785.4 05/10/2014 SOLANO DO, ABIODUN Ot 785.52 05/10/2014 SOLANO DO, ABIODUN Ot 995.92 05/10/2014 SOLANO DO, ABIODUN Ot V15.81 05/10/2014 SOLANO DO, ABIODUN Ot V49.72 05/19/2014 SOLANO DO, ABIODUN Ot 038.9 05/19/2014 SOLANO DO, ABIODUN Ot 250.60 05/19/2014 SOLANO DO, ABIODUN Ot 250.70 05/19/2014 SOLANO DO, ABIODUN Ot 272.4 05/19/2014 SOLANO DO, ABIODUN Ot 305.1 05/19/2014 SOLANO DO, ABIODUN Ot 357.2 05/19/2014 SOLANO DO, ABIODUN Ot 403.90 05/19/2014 SOLANO DO, ABIODUN Ot 496 05/19/2014 SOLANO DO, ABIODUN Ot 585.9 05/19/2014 SOLANO DO, ABIODUN Ot 682.7 05/19/2014 SOLANO DO, ABIODUN Ot 785.4 05/19/2014 SOLANO DO, ABIODUN Ot 785.52 05/19/2014 SOLANO DO, ABIODUN Ot 995.92 05/19/2014 SOLANO DO, ABIODUN Ot V15.81 05/19/2014 SOLANO DO, ABIODUN Ot V49.72 05/19/2014 SOLANO DO, ABIODUN Ot 038.9 05/19/2014 SOLANO DO, ABIODUN Ot 250.60 05/19/2014 SOLANO DO, ABIODUN Ot 250.70 05/19/2014 SOLANO DO, ABIODUN Ot 272.4 05/19/2014 SOLANO DO, ABIODUN Ot 305.1 05/19/2014 SOLANO DO, ABIODUN Ot 357.2 05/19/2014 SOLANO DO, ABIODUN Ot 403.90 05/19/2014 SOLANO DO, ABIODUN Ot 496 05/19/2014 SOLANO DO, ABIODUN Ot 585.9 05/19/2014 SOLANO DO, ABIODUN Ot 682.7 05/19/2014 SOLANO DO, ABIODUN Ot 785.4 05/19/2014 SOLANO DO, ABIODUN Ot 785.52 05/19/2014 SOLANO DO, ABIODUN Ot 995.92 05/19/2014 SOLANO DO, ABIODUN Ot V15.81 05/19/2014 SOLANO DO, ABIODUN Ot V49.72 05/20/2014 SOLANO DO, ABIODUN Ot 038.9 05/20/2014 SOLANO DO, ABIODUN Ot 250.60 05/20/2014 SOLANO DO, ABIODUN Ot 250.70 05/20/2014 SOLANO DO, ABIODUN Ot 272.4 05/20/2014 SOLANO DO, ABIODUN Ot 305.1 05/20/2014 SOLANO DO, ABIODUN Ot 357.2 05/20/2014 SOLANO DO, ABIODUN Ot 403.90 05/20/2014 SOLANO DO, ABIODUN Ot 496 05/20/2014 SOLANO DO, ABIODUN Ot 585.9 05/20/2014 SOLANO DO, ABIODUN Ot 682.7 05/20/2014 SOLANO DO, ABIODUN Ot 785.4 05/20/2014 SOLANO DO, ABIODUN Ot 785.52 05/20/2014 SOLAON DO, ABIODUN Ot 995.92 05/20/2014 SOLANO DO, ABIODUN Ot V15.81 05/20/2014 SOLANO DO, ABIODUN Ot V49.72 05/20/2014 SOLANO DO, ABIODUN Ot 038.9 05/20/2014 SOLANO DO, ABIODUN Ot 250.60 05/20/2014 SOLANO DO, ABIODUN Ot 250.70 05/20/2014 SOLANO DO, ABIODUN Ot 272.4 05/20/2014 SOLANO DO, ABIODUN Ot 305.1 05/20/2014 SOLANO DO, ABIODUN Ot 357.2 05/20/2014 SOLANO DO, ABIODUN Ot 403.90 05/20/2014 SOLANO DO, ABIODUN Ot 496 05/20/2014 SOLANO DO, ABIODUN Ot 585.9 05/20/2014 SOLANO DO, ABIODUN Ot 682.7 05/20/2014 SOLANO DO, ABIODUN Ot 785.4 05/20/2014 SOLANO DO, ABIODUN Ot 785.52 05/20/2014 SOLANO DO, ABIODUN Ot 995.92 05/20/2014 SOLANO DO, ABIODUN Ot V15.81 05/20/2014 SOLANO DO, ABIODUN Ot V49.72 05/21/2014 SOLANO DO, ABIODUN Ot 038.9 05/21/2014 SOLANO DO, ABIODUN Ot 250.60 05/21/2014 SOLANO DO, ABIODUN Ot 250.70 05/21/2014 SOLANO DO, ABIODUN Ot 272.4 05/21/2014 SOLANO DO, ABIODUN Ot 305.1 05/21/2014 SOLANO DO, ABIODUN Ot 357.2 05/21/2014 SOLANO DO, ABIODUN Ot 403.90 05/21/2014 SOLANO DO, ABIODUN Ot 496 05/21/2014 SOLANO DO, ABIODUN Ot 585.9 05/21/2014 SOLANO DO, ABIODUN Ot 682.7 05/21/2014 SOLANO DO, ABIODUN Ot 785.4 05/21/2014 SOLANO DO, ABIODUN Ot 785.52 05/21/2014 SOLANO DO, ABIODUN Ot 995.92 05/21/2014 SOLANO DO, ABIODUN Ot V15.81 05/21/2014 SOLANO DO, ABIODUN Ot V49.72 05/21/2014 SOLANO DO, ABIODUN Ot 038.9 05/21/2014 SOLANO DO, ABIODUN Ot 250.60 05/21/2014 SOLANO DO, ABIODUN Ot 250.70 05/21/2014 SOLANO DO, ABIODUN Ot 272.4 05/21/2014 SOLANO DO, ABIODUN Ot 305.1 05/21/2014 SOLANO DO, ABIODUN Ot 357.2 05/21/2014 SOLANO DO, ABIODUN Ot 403.90 05/21/2014 SOLANO DO, ABIODUN Ot 496 05/21/2014 SOLANO DO, ABIODUN Ot 585.9 05/21/2014 SOLANO DO, ABIODUN Ot 682.7 05/21/2014 SOLANO DO, ABIODUN Ot 785.4 05/21/2014 SOLANO DO, ABIODUN Ot 785.52 05/21/2014 SOLANO DO, ABIODUN Ot 995.92 05/21/2014 SOLANO DO, ABIODUN Ot V15.81 05/21/2014 SOLANO DO, ABIODUN Ot V49.72 05/27/2014 SOLANO DO, ABIODUN Ot 250.60 DIAB W NEURO MANIFEST, TYPE II OR UNSPEC 05/27/2014 SOLANO DO, ABIODUN Ot 250.70 DIAB W PERIPH CIRC DIS, TYPE II OR UNSPE 05/27/2014 SOLANO DO, ABIODUN Ot 250.80 DIAB W OTH SPEC MANIFEST, TYPE II OR UNS 05/27/2014 SOLANO DO, ABIODUN Ot 272.4 HYPERLIPIDEMIA NEC/NOS 05/27/2014 SOLANO DO, ABIODUN Ot 285.1 AC POSTHEMORRHAG ANEMIA 05/27/2014 SOLANO DO, ABIODUN Ot 285.21 ANEMIA IN CHRONIC KIDNEY DISEASE 05/27/2014 XIOMARA READ ABIODUN Ot 305.1 TOBACCO USE DISORDER 05/27/2014 ABIODUN SOLANO DO Ot 311 DEPRESSIVE DISORDER NEC 05/27/2014 ABIODUN SOLANO DO Ot 357.2 NEUROPATHY IN DIABETES 05/27/2014 XIOMARA READ ABIODUN Ot 403.90 HYPTNSV CHR KID DIS, UNSPEC, W CHR KD ST 05/27/2014 ABIODUN SOLANO DO Ot 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 05/27/2014 XIOMARA READ ABIODUN Ot 496 CHR AIRWAY OBSTRUCT NEC 05/27/2014 JE SOLANO DOI Ot 530.11 REFLUX ESOPHAGITIS 05/27/2014 JE SOLANO DOI Ot 535.50 UNSP GASTRITIS GASTRODUODENITIS W/O ME 05/27/2014 XIOMARA READ ABIODUN Ot 536.3 GASTROPARESIS 05/27/2014 JE SOLANO DOI Ot 585.9 CHRONIC KIDNEY DISEASE, UNSPECIFIED 05/27/2014 ABIODUN SOLANO DO Ot 682.7 CELLULITIS OF FOOT 05/27/2014 XIOMARA READ ABIODUN Ot 707.15 ULCER OF OTHER PART OF FOOT 05/27/2014 JE SOLANO DOI Ot 780.1 HALLUCINATIONS 05/27/2014 ABIODUN SOLANO DO Ot 780.52 INSOMNIA, UNSPECIFIED 05/27/2014 ABIODUN SOLANO DO Ot E935.2 ADV EFF OPIATES 05/27/2014 ABIODUN SOLANO DO Ot V15.81 HX OF PAST NONCOMPLIANCE 05/27/2014 ABIODUN SOLANO DO Ot V49.72 OTHER TOE(S) AMPUTATION STATUS 06/03/2014 Ot 041.12 METHICILLIN RESISTANT STAPHYLOCOCCUS AUR 06/03/2014 Ot 244.9 HYPOTHYROIDISM NOS 06/03/2014 Ot 250.13 DIAB W KETOACIDOSIS, TYPE I [JUVENILE TY 06/03/2014 Ot 250.63 DIAB W NEURO MANIFEST, TYPE I [JUVENILE 06/03/2014 Ot 250.83 DIAB W OTH SPEC MANIFEST, TYPE I [JUVENI 06/03/2014 Ot 272.0 PURE HYPERCHOLESTEROLEM 06/03/2014 Ot 276.8 HYPOPOTASSEMIA 06/03/2014 Ot 285.9 ANEMIA NOS 06/03/2014 Ot 296.33 RECUR DEPR DISOR-SEVERE 06/03/2014 Ot 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 06/03/2014 Ot 338.29 OTHER CHRONIC PAIN 06/03/2014 Ot 357.2 NEUROPATHY IN DIABETES 06/03/2014 Ot 403.90 HYPTNSV CHR KID DIS, UNSPEC, W CHR KD ST 06/03/2014 Ot 412 OLD MYOCARDIAL INFARCT 06/03/2014 Ot 414.01 CORONARY ATHEROSCLEROSIS OF [place] CORON 06/03/2014 Ot 440.23 ATHEROSCL [place] ARTER EXTREMITIES W ULC 06/03/2014 Ot 443.9 PERIPH VASCULAR DIS NOS 06/03/2014 Ot 536.3 GASTROPARESIS 06/03/2014 Ot 585.9 CHRONIC KIDNEY DISEASE, UNSPECIFIED 06/03/2014 Ot 707.14 ULCER OF HEEL AND MIDFOOT 06/03/2014 Ot 707.15 06/03/2014 Ot 716.90 ARTHROPATHY NOS-UNSPEC 06/03/2014 Ot 730.27 OSTEOMYELITIS NOS-ANKLE 06/03/2014 Ot 731.8 BONE INVOLV IN OTH DIS 06/03/2014 Ot V15.81 HX OF PAST NONCOMPLIANCE 06/03/2014 Ot V45.89 POSTSURGICAL STATES NEC 06/03/2014 Ot V49.72 OTHER TOE(S) AMPUTATION STATUS 06/03/2014 Ot V58.67 LONG-TERM (CURRENT) USE OF INSULIN 06/25/2014 Ot V58.62 06/25/2014 Ot V58.83 07/01/2014 XIOMARA READ ABIODUN Ot V58.62 07/01/2014 XIOMARA READ ABIODUN Ot V58.83 07/01/2014 Ot V58.62 07/01/2014 Ot V58.83 07/02/2014 PHAN BARRERA APRN Ot 996.74 OT COMPL DUE TO OT VASCULAR DEVICE,IMP 07/05/2014 Ot V58.62 07/05/2014 Ot V58.83 07/06/2014 SOLANO DO, ABIODUN Ot V58.69 07/06/2014 XIOMARA DO, ABIODUN Ot V58.83 07/09/2014 SOLANO DO, ABIODUN Ot V58.62 07/09/2014 XIOMARA READ, ABIODUN Ot V58.83 07/10/2014 VIKTORIA QUINTANILLA, FREDDIE Traore Ot 250.70 DIAB W PERIPH CIRC DIS, TYPE II OR UNSPE 07/10/2014 VIKTORIA QUINTANILLA, FREDDIE Traore Ot 707.15 ULCER OF OTHER PART OF FOOT 07/10/2014 VIKTORIA QUINTANILLA, FREDDIE Traore Ot 785.4 GANGRENE 07/13/2014 SOLANO DO, ABIODUN Ot 730.27 07/13/2014 SOLANO DO, ABIODUN Ot V58.62 07/19/2014 SOLANO DO, ABIODUN Ot V58.62 07/19/2014 SOLANO DO, ABIODUN Ot V58.83 07/21/2014 SOLANO DO, ABIODUN Ot V58.69 07/21/2014 SOLANO DO, ABIODUN Ot V58.83 07/21/2014 SOLANO DO, ABIODUN Ot V58.62 07/21/2014 SOLANO DO, ABIODUN Ot V58.83 07/27/2014 SOLANO DO, ABIODUN Ot V58.62 07/27/2014 SOLANO DO, ABIODUN Ot V58.83 08/02/2014 FLORY QUINTANILLA, EDITH Lane Ot 250.80 DIAB W OTH SPEC MANIFEST, TYPE II OR UNS 08/02/2014 EDITH RUTH MD Ot 305.1 TOBACCO USE DISORDER 08/02/2014 EDITH RUTH MD Ot 440.23 ATHEROSCL [place] ARTER EXTREMITIES W ULC 08/02/2014 EDITH RUTH MD Ot 707.14 ULCER OF HEEL AND MIDFOOT 08/13/2014 SOLANO DO, ABIODUN Ot V58.62 08/13/2014 SOLANO DO, ABIODUN Ot V58.83 08/13/2014 SOLANO DO, ABIODUN Ot 730.27 08/13/2014 SOLANO DO, ABIODUN Ot V58.62 08/20/2014 Ot 959.09 08/20/2014 Ot E849.0 08/20/2014 Ot E917.9 08/20/2014 Ot 397.0 08/20/2014 Ot 414.00 08/20/2014 Ot 424.0 08/20/2014 Ot 443.9 08/20/2014 Ot 786.50 08/20/2014 Ot V45.81 08/20/2014 Ot 414.00 08/20/2014 Ot 443.9 08/20/2014 Ot 786.50 08/20/2014 Ot V45.81 08/20/2014 Ot 272.4 08/20/2014 Ot 433.30 08/20/2014 Ot 780.4 08/20/2014 Ot 272.4 08/20/2014 Ot 401.9 08/20/2014 Ot 414.01 08/20/2014 Ot 443.9 08/20/2014 Ot V58.67 08/20/2014 Ot V58.69 08/20/2014 Ot 397.0 08/20/2014 Ot 401.9 08/20/2014 Ot 414.00 08/20/2014 Ot 424.0 08/20/2014 Ot 443.9 08/20/2014 Ot 272.4 08/20/2014 Ot 401.9 08/20/2014 Ot 414.00 08/20/2014 Ot 443.9 08/20/2014 Ot 791.9 08/20/2014 Ot 794.39 08/20/2014 Ot V45.81 08/20/2014 Ot V72.63 08/20/2014 Ot V72.81 08/20/2014 Ot 250.00 08/20/2014 Ot 729.5 08/20/2014 Ot 414.00 08/20/2014 Ot 433.10 08/20/2014 Ot 433.30 08/20/2014 Ot 780.2 08/20/2014 Ot 414.00 08/20/2014 Ot 780.2 08/20/2014 XIOMARA DO, ABIODUN Ot V58.62 08/20/2014 XIOMARA READ, ABIODUN Ot V58.83 08/20/2014 XIOMARA DO, ABIODUN Ot V58.62 08/20/2014 XIOMARA READ, ABIODUN Ot V58.83 08/20/2014 Ot 397.0 08/20/2014 Ot 414.00 08/20/2014 Ot 424.0 08/20/2014 Ot 443.9 08/20/2014 Ot 786.50 08/20/2014 Ot V45.81 08/20/2014 Ot 414.00 08/20/2014 Ot 443.9 08/20/2014 Ot 786.50 08/20/2014 Ot V45.81 08/20/2014 Ot 272.4 08/20/2014 Ot 433.30 08/20/2014 Ot 780.4 08/20/2014 Ot 250.00 08/20/2014 Ot 729.5 08/20/2014 Ot 414.00 08/20/2014 Ot 433.10 08/20/2014 Ot 433.30 08/20/2014 Ot 780.2 08/20/2014 Ot 414.00 08/20/2014 Ot 780.2 08/20/2014 HARJINDER MOSCOSO, SHAYNA Lemus Ot 278.00 08/20/2014 HARJINDER MOSCOSO, SHAYNA Lemus Ot 401.9 08/20/2014 HARJINDER MOSCOSO, SHAYNA Lemus Ot 414.00 08/20/2014 BRANDI QUINTANILLA, PHAN Aguero Ot 414.9 08/20/2014 BRANDI QUINTANILLA, PHAN Aguero Ot 585.9 08/20/2014 BRANDI QUINTANILLA, PHAN N Ot V72.81 08/20/2014 VIKTORIA QUINTANILLA, FREDDIE S Ot 440.20 08/20/2014 VIKTORIA QUINTANILLA, FREDDIE S Ot 729.5 08/20/2014 VIKTORIA QUINTANILLA, FRDEDIE S Ot V64.1 08/20/2014 VIKTORIA QUINTANILLA, FREDDIE S Ot 790.99 08/20/2014 Ot V58.62 08/20/2014 Ot V58.83 08/20/2014 Ot V58.62 08/20/2014 Ot V58.83 08/20/2014 Ot V58.62 08/20/2014 Ot V58.83 08/20/2014 SOLANO DO, ABIODUN Ot V58.62 08/20/2014 SOLANO DO, ABIODUN Ot V58.83 08/20/2014 SOLANO DO, ABIODUN Ot V58.62 08/20/2014 SOLANO DO, ABIODUN Ot V58.83 08/20/2014 SOLANO DO, ABIODUN Ot V58.69 08/20/2014 SOLANO DO, ABIODUN Ot V58.83 08/20/2014 SOLANO DO, ABIODUN Ot V58.62 08/20/2014 SOLANO DO, ABIODUN Ot V58.83 08/20/2014 SOLANO DO, ABIODUN Ot V58.62 08/20/2014 SOLANO DO, ABIODUN Ot V58.83 08/20/2014 SOLANO DO, ABIODUN Ot 730.27 08/20/2014 SOLANO DO, ABIODUN Ot V58.62 08/20/2014 SOLANO DO, ABIODUN Ot V58.69 08/20/2014 SOLANO DO, ABIODUN Ot V58.83 08/20/2014 VIKTORIA QUINTANILLA, FREDDIE S Ot 707.15 08/20/2014 SOLANO DO, ABIODUN Ot V58.62 08/20/2014 SOLANO DO, ABIODUN Ot V58.83 08/20/2014 SOLANO DO, ABIODUN Ot V58.81 08/20/2014 Ot 397.0 08/20/2014 Ot 414.00 08/20/2014 Ot 424.0 08/20/2014 Ot 443.9 08/20/2014 Ot 786.50 08/20/2014 Ot V45.81 08/20/2014 Ot 414.00 08/20/2014 Ot 443.9 08/20/2014 Ot 786.50 08/20/2014 Ot V45.81 08/20/2014 Ot 272.4 08/20/2014 Ot 433.30 08/20/2014 Ot 780.4 08/20/2014 Ot 250.00 08/20/2014 Ot 729.5 08/20/2014 Ot 414.00 08/20/2014 Ot 433.10 08/20/2014 Ot 433.30 08/20/2014 Ot 780.2 08/20/2014 Ot 414.00 08/20/2014 Ot 780.2 08/20/2014 SHAYNA MCKAY Ot 278.00 08/20/2014 SHAYNA MCKAY Ot 401.9 08/20/2014 SHAYNA MCKAY Ot 414.00 08/20/2014 BRANDI QUINTANILLA, PHAN Aguero Ot 414.9 08/20/2014 BRANDI QUINTANILLA, PHAN Aguero Ot 585.9 08/20/2014 BARNDI QUINTANILLA, PHAN Aguero Ot V72.81 08/20/2014 VIKTORIA QUINTANILLA, FREDDIE Traore Ot 440.20 08/20/2014 VIKTORIA QUINTANILLA, FREDDIE S Ot 729.5 08/20/2014 VIKTORIA QUINTANILLA, FREDDIE S Ot V64.1 08/20/2014 VIKTORIA QUINTANILLA, FREDDIE S Ot 790.99 08/20/2014 Ot V58.62 08/20/2014 Ot V58.83 08/20/2014 Ot V58.62 08/20/2014 Ot V58.83 08/20/2014 Ot V58.62 08/20/2014 Ot V58.83 08/20/2014 XIOMARA DO, ABIODUN Ot V58.62 08/20/2014 XIOMARA DO, ABIODUN Ot V58.83 08/20/2014 SOLANO DO, ABIODUN Ot V58.62 08/20/2014 SOLANO DO, ABIODUN Ot V58.83 08/20/2014 SOLANO DO, ABIODUN Ot V58.69 08/20/2014 SOLANO DO, ABIODUN Ot V58.83 08/20/2014 SOLANO DO, ABIODUN Ot V58.62 08/20/2014 SOLANO DO, ABIODUN Ot V58.83 08/20/2014 SOLANO DO, ABIODUN Ot V58.62 08/20/2014 SOLANO DO, ABIODUN Ot V58.83 08/20/2014 SOLANO DO, ABIODUN Ot 730.27 08/20/2014 SOLANO DO, ABIODUN Ot V58.62 08/20/2014 SOLANO DO, ABIODUN Ot V58.69 08/20/2014 SOLANO DO, ABIODUN Ot V58.83 08/20/2014 VIKTORIA QUINTANILLA, FREDDIE Traore Ot 707.15 08/20/2014 SOLANO DO, ABIODUN Ot V58.62 08/20/2014 SOLANO DO, ABIODUN Ot V58.83 08/20/2014 SOLANO DO, ABIODNU Ot V58.81 08/21/2014 SOLANO DO, ABIODUN Ot V58.69 08/21/2014 SOLANO DO, ABIODUN Ot V58.83 08/21/2014 FREDDIE BLUM MD Ot 707.15 08/23/2014 FREDDIE BLUM MD Ot 244.9 HYPOTHYROIDISM NOS 08/23/2014 FREDDIE BLUM MD Ot 250.80 DIAB W OTH SPEC MANIFEST, TYPE II OR UNS 08/23/2014 FREDDIE BLUM MD Ot 272.4 HYPERLIPIDEMIA NEC/NOS 08/23/2014 FREDDIE BLUM MD Ot 401.9 HYPERTENSION NOS 08/23/2014 FREDDIE BLUM MD Ot 707.15 ULCER OF OTHER PART OF FOOT 09/15/2014 FREDDIE BLUM MD Ot 709.8 09/15/2014 FREDDIE BLUM MD Ot V72.63 09/15/2014 FREDDIE BLUM MD Ot V74.8 09/17/2014 FREDDIE BLUM MD Ot 250.80 DIAB W OTH SPEC MANIFEST, TYPE II OR UNS 09/17/2014 VIKTORIA MD, FREDDIE S Ot 707.15 ULCER OF OTHER PART OF FOOT 09/29/2014 Ot 414.00 09/29/2014 Ot 443.9 09/29/2014 Ot 786.50 09/29/2014 Ot V45.81 09/29/2014 Ot 272.4 09/29/2014 Ot 433.30 09/29/2014 Ot 780.4 09/29/2014 Ot 250.00 09/29/2014 Ot 729.5 09/29/2014 Ot 414.00 09/29/2014 Ot 433.10 09/29/2014 Ot 433.30 09/29/2014 Ot 780.2 09/29/2014 Ot 414.00 09/29/2014 Ot 780.2 09/29/2014 HARJINDER MOSCOSO, SHAYNA Lemus Ot 278.00 09/29/2014 HARJINDER PA, SHAYNA Lemus Ot 401.9 09/29/2014 HARJINDER MOSCOSO, SHAYNA Lemus Ot 414.00 09/29/2014 BRANDI QUINTANILLA, PHAN Aguero Ot 414.9 09/29/2014 BRANDI QUINTANILLA, PHAN N Ot 585.9 09/29/2014 BRANDI QUINTANILLA, PHAN Aguero Ot V72.81 09/29/2014 VIKTORIA QUINTANILLA, FREDDIE S Ot 440.20 09/29/2014 VIKTORIA QUINTANILLA, FREDDIE S Ot 729.5 09/29/2014 VIKTORIA QUINTANILLA, FREDDIE S Ot V64.1 09/29/2014 VIKTORIA QUINTANILLA, FREDDIE S Ot 790.99 09/29/2014 Ot V58.62 09/29/2014 Ot V58.83 09/29/2014 Ot V58.62 09/29/2014 Ot V58.83 09/29/2014 Ot V58.62 09/29/2014 Ot V58.83 09/29/2014 SOLANO DO, ABIODUN Ot V58.62 09/29/2014 SOLANO DO, ABIODUN Ot V58.83 09/29/2014 SOLANO DO, ABIODUN Ot V58.62 09/29/2014 SOLANO DO, ABIODUN Ot V58.83 09/29/2014 SOLANO DO, ABIODUN Ot V58.69 09/29/2014 SOLANO DO, ABIODUN Ot V58.83 09/29/2014 SOLANO DO, ABIODUN Ot V58.62 09/29/2014 SOLANO DO, ABIODUN Ot V58.83 09/29/2014 SOLANO DO, ABIODUN Ot V58.62 09/29/2014 SOLANO DO, ABIODUN Ot V58.83 09/29/2014 SOLANO DO, ABIODUN Ot 730.27 09/29/2014 SOLANO DO, ABIODUN Ot V58.62 09/29/2014 SOLANO DO, ABIODUN Ot V58.69 09/29/2014 SOLANO DO, ABIODUN Ot V58.83 09/29/2014 VIKTORIA QUINTANILLA, FREDDIE S Ot 707.15 09/29/2014 SOLANO DO, ABIODUN Ot V58.62 09/29/2014 SOLANO DO, ABIODUN Ot V58.83 09/29/2014 SOLANO DO, ABIODUN Ot V58.81 09/29/2014 VIKTORIA QUINTANILLA, FREDDIE S Ot 709.8 09/29/2014 VIKTORIA QUINTANILLA, FREDDIE S Ot V72.63 09/29/2014 VIKTORIA QUINTANILLA, FREDDIE S Ot V74.8 09/29/2014 VIKTORIA QUINTANILLA, FREDDIE S Ot 892.0 09/29/2014 VIKTORIA QUINTANILLA, FREDDIE S Ot E000.8 09/29/2014 VIKTORIA QUINTANILLA, FREDDIE S Ot E928.9 09/29/2014 VIKTORIA QUINTANILLA, FREDDIE S Ot V72.84 09/29/2014 VIKTORIA QUINTANILLA, FREDDIE S Ot 041.12 09/30/2014 VIKTORIA QUINTANILLA, FREDDIE S Ot 041.12 10/01/2014 VIKTORIA QUINTANILLA, FREDDIE S Ot 041.12 10/01/2014 VIKTORIA QUINTANILLA, FREDDIE S Ot 041.12 10/01/2014 VIKTORIA QUINTANILLA, FREDDIE S Ot 041.12 10/02/2014 VIKTORIA QUINTANILLA, FREDDIE S Ot 041.12 10/02/2014 VIKTORIA QUINTANILLA, FREDDIE S Ot 041.12 10/02/2014 VIKTORIA QUINTANILLA, FREDDIE S Ot 041.12 10/03/2014 VIKTORIA QUINTANILLA, FREDDIE S Ot 041.12 10/03/2014 VIKTORIA QUINTANILLA, FREDDIE S Ot 041.12 10/03/2014 VIKTORIA QUINTANILLA, FREDDIE S Ot 041.12 10/03/2014 VIKTORIA QUINTANILLA, FREDDIE S Ot 041.12 10/04/2014 VIKTORIA QUINTANILLA, FREDDIE S Ot 041.12 10/04/2014 VIKTORIA QUINTANILLA, FREDDIE S Ot 041.12 10/05/2014 VIKTORIA QUINTANILLA, FREDDIE S Ot 041.12 10/05/2014 VIKTORIA QUINTANILLA, FREDDIE S Ot 041.12 10/05/2014 VIKTORIA QUINTANILLA, FREDDIE S Ot 041.12 10/06/2014 VIKTORIA QUINTANILLA, FREDDIE S Ot 041.12 10/06/2014 VIKTORIA QUINTANILLA, FREDDIE S Ot 041.12 10/07/2014 VIKTORIA QUINTANILLA, FREDDIE S Ot 041.12 10/07/2014 VIKTORIA QUINTANILLA, FREDDIE S Ot 041.12 10/08/2014 VIKTORIA QUINTANILLA, FREDDIE S Ot 041.12 10/08/2014 VIKTORIA QUINTANILLA, FREDDIE S Ot 041.12 10/09/2014 VIKTORIA QUINTANILLA, FREDDIE S Ot 041.12 10/09/2014 VIKTORIA QUINTANILLA, FREDDIE S Ot 041.12 10/09/2014 VIKTORIA QUINTANILLA, FREDDIE S Ot 041.12 10/10/2014 VIKTORIA QUINTANILLA, FREDDIE S Ot 041.12 10/10/2014 VIKTORIA QUINTANILLA, FREDDIE S Ot 041.12 10/11/2014 VIKTORIA QUINTANILLA, FREDDIE S Ot 041.12 10/11/2014 VIKTORIA QUINTANILLA, FREDDIE S Ot 041.12 10/12/2014 VIKTORIA QUINTANILLA, FREDDIE S Ot 041.12 10/12/2014 VIKTORIA QUINTANILLA, FREDDIE S Ot 041.12 10/12/2014 VIKTORIA QUINTANILLA, FREDDIE S Ot 041.12 10/13/2014 VIKTORIA QUINTANILLA, FREDDIE S Ot 041.12 10/13/2014 VIKTORIA QUINTANILLA, FREDDIE S Ot 041.12 10/14/2014 VIKTORIA QUINTANILLA, FREDDIE S Ot 041.12 10/14/2014 VIKTORIA QUINTANILLA, FREDDIE S Ot 041.12 10/15/2014 VIKTORIA QUINTANILLA, FREDDIE S Ot 041.12 10/15/2014 VIKTORIA QUINTANILLA, FREDDIE S Ot 041.12 10/16/2014 VIKTORIA QUINTANILLA, FREDDIE S Ot 041.12 10/16/2014 VIKTORIA QUINTANILLA, FREDDIE S Ot 041.12 10/16/2014 VIKTORIA QUINTANILLA, FREDDIE S Ot 041.12 10/16/2014 VIKTORIA QUINTANILLA, FREDDIE S Ot 041.12 10/17/2014 VIKTORIA QUINTANILLA, FREDDIE S Ot 041.12 10/17/2014 VIKTORIA QUINTANILLA, FREDDIE S Ot 041.12 10/18/2014 VIKTORIA QUINTANILLA, FREDDIE S Ot 041.12 10/19/2014 VIKTORIA QUINTANILLA, FREDDIE S Ot 041.12 10/19/2014 VIKTORIA QUINTANILLA, FREDDIE S Ot 892.0 10/19/2014 VIKTORIA QUINTANILLA, FREDDIE S Ot E000.8 10/19/2014 VIKTORIA QUINTANILLA, FREDDIE S Ot E928.9 10/19/2014 VIKTORIA QUINTANILLA, FREDDIE S Ot 892.0 10/19/2014 VIKTORIA QUINTANILLA, FREDDIE S Ot E000.8 10/19/2014 VIKTORIA QUINTANILLA, FREDDIE S Ot E928.9 10/20/2014 VIKTORIA QUINTANILLA, FREDDIE S Ot 707.15 10/20/2014 VIKTORIA QUINTANILLA, FREDDIE S Ot 707.15 10/20/2014 Ot 414.00 10/20/2014 Ot 443.9 10/20/2014 Ot 786.50 10/20/2014 Ot V45.81 10/20/2014 Ot 272.4 10/20/2014 Ot 433.30 10/20/2014 Ot 780.4 10/20/2014 Ot 250.00 10/20/2014 Ot 729.5 10/20/2014 Ot 414.00 10/20/2014 Ot 433.10 10/20/2014 Ot 433.30 10/20/2014 Ot 780.2 10/20/2014 Ot 414.00 10/20/2014 Ot 780.2 10/20/2014 SHAYNA MCKAY Ot 278.00 10/20/2014 SHAYNA MCKAY Ot 401.9 10/20/2014 SHAYNA MCKAY Ot 414.00 10/20/2014 BRANDI QUINTANILLA, PHAN Aguero Ot 414.9 10/20/2014 BRANDI QUINTANILLA, PHAN Aguero Ot 585.9 10/20/2014 BRANDI QUINTANILLA, PHAN Aguero Ot V72.81 10/20/2014 VIKTORIA QUINTANILLA, FREDDIE S Ot 440.20 10/20/2014 VIKTORIA QUINTANILLA, FREDDIE S Ot 729.5 10/20/2014 VIKTORIA QUINTANILLA, FREDDIE S Ot V64.1 10/20/2014 VIKTORIA QUINTANILLA, FREDDIE S Ot 790.99 10/20/2014 Ot V58.62 10/20/2014 Ot V58.83 10/20/2014 Ot V58.62 10/20/2014 Ot V58.83 10/20/2014 Ot V58.62 10/20/2014 Ot V58.83 10/20/2014 SOLANO DO, ABIODUN Ot V58.62 10/20/2014 SOLANO DO, ABIODUN Ot V58.83 10/20/2014 SOLANO DO, ABIODUN Ot V58.62 10/20/2014 SOLANO DO, ABIODUN Ot V58.83 10/20/2014 SOLANO DO, ABIODUN Ot V58.69 10/20/2014 SOLANO DO, ABIODUN Ot V58.83 10/20/2014 SOLANO DO, ABIODUN Ot V58.62 10/20/2014 SOLANO DO, ABIODUN Ot V58.83 10/20/2014 SOLANO DO, ABIODUN Ot V58.62 10/20/2014 SOLANO DO, ABIODUN Ot V58.83 10/20/2014 SOLANO DO, ABIODUN Ot 730.27 10/20/2014 SOLANO DO, ABIODUN Ot V58.62 10/20/2014 SOLANO DO, ABIODUN Ot V58.69 10/20/2014 SOLANO DO, ABIODUN Ot V58.83 10/20/2014 VIKTORIA QUINTANILLA, FREDDIE S Ot 707.15 10/20/2014 SOLANO DO, ABIODUN Ot V58.62 10/20/2014 SOLANO DO, ABIODUN Ot V58.83 10/20/2014 SOLANO DO, ABIODUN Ot V58.81 10/20/2014 VIKTORIA QUINTANILLA, FREDDIE S Ot 709.8 10/20/2014 VIKTORIA QUINTANILLA, FREDDIE S Ot V72.63 10/20/2014 VIKTORIA QUINTANILLA, FREDDIE S Ot V74.8 10/20/2014 VIKTORIA QUINTANILLA, FREDDIE S Ot 892.0 10/20/2014 VIKTORIA QUINTANILLA, FREDDIE S Ot E000.8 10/20/2014 VIKTORIA QUINTANILLA, FREDDIE S Ot E928.9 10/20/2014 VIKTORIA QUINTANILLA, FREDDIE S Ot V72.84 10/20/2014 VIKTORIA QUINTANILLA, FREDDIE S Ot 892.0 10/20/2014 VIKTORIA QUINTANILLA, FREDDIE S Ot E000.8 10/20/2014 VIKTORIA QUINTANILLA, FREDDIE Traore Ot E928.9 10/20/2014 FLORY QUINTANILLA, EDITH Lane Ot 041.12 10/20/2014 FLORY QUINTANILLA, EDITH Lane Ot 041.7 10/20/2014 FLORY QUINTANILLA, EDITH Lane Ot 250.80 10/20/2014 FLORY QUINTANILLA, EDITH Lane Ot 707.14 10/20/2014 FLORY QUINTANILLA, EDITH Lane Ot 707.15 10/20/2014 VIKTORIA QUINTANILLA, FREDDIE Traore Ot 041.12 10/20/2014 FLORY QUINTANILLA, EDITH Lane Ot 707.15 10/20/2014 FLORY QUINTANILLA, EDITH Lane Ot V49.72 10/20/2014 VIKTORIA QUINTANILLA, FREDDIE Traore Ot 459.81 10/20/2014 VIKTORIA QUINTANILLA, FREDDIE Traore Ot V72.84 10/20/2014 SOLANO DO, ABIODUN Ot V58.62 10/20/2014 SOLANO DO, ABIODUN Ot V58.83 10/20/2014 SOLANO DO, ABIODUN Ot 730.27 10/20/2014 SOLANO DO, ABIODUN Ot V58.62 10/20/2014 VIKTORIA UQINTANILLA, FREDDIE Traore Ot 244.9 HYPOTHYROIDISM NOS 10/20/2014 VIKTORIA QUINTANILLA, FREDDIE Traore Ot 250.80 DIAB W OTH SPEC MANIFEST, TYPE II OR UNS 10/20/2014 VIKTORIA QUINTANILLA, FREDDIE Traore Ot 401.9 HYPERTENSION NOS 10/20/2014 VIKTORIA QUINTANILLA, FREDDIE Traore Ot 414.00 CORON ATHEROSCLER NOS TYPE VESSEL, NATIV 10/20/2014 VIKTORIA QUINTANILLA, FREDDIE Traore Ot 443.9 PERIPH VASCULAR DIS NOS 10/20/2014 VIKTORIA QUINTANILLA, FREDDIE Traore Ot 530.81 ESOPHAGEAL REFLUX 10/20/2014 VIKTORIA QUINTANILLA, FREDDIE Traore Ot 707.15 ULCER OF OTHER PART OF FOOT 10/20/2014 VIKTORIA QUINTANILLA, FREDDIE Traore Ot 996.74 OTH COMPL DUE TO OT VASCULAR DEVICE, IMP 10/20/2014 VIKTORIA QUINTANILLA, FREDDIE Traore Ot V45.81 AORTOCORONARY BYPASS 10/20/2014 VIKTORAI QUINTANILLA, FREDDIE Traore Ot V58.69 OT MED,LT,CURRENT USE 10/21/2014 VIKTORIA QUINTANILLA, FREDDIE Traore Ot 041.12 10/21/2014 VIKTORIA QUINTANILLA, FREDDIE Traore Ot 041.12 10/22/2014 FLORY QUINTANILLA, EDITH Lane Ot 041.12 METHICILLIN RESISTANT STAPHYLOCOCCUS AUR 10/22/2014 EDITH RUTH MD Ot 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 10/22/2014 EDITH RUTH MD Ot 250.80 DIAB W OTH SPEC MANIFEST, TYPE II OR UNS 10/22/2014 EDITH RUTH MD Ot 707.14 ULCER OF HEEL AND MIDFOOT 10/22/2014 EDITH RUTH MD Ot 707.15 ULCER OF OTHER PART OF FOOT 10/22/2014 FREDDIE BLUM MD Ot 041.12 10/22/2014 EDITH RUTH MD Ot 250.80 10/22/2014 EDITH RUTH MD Ot 707.15 10/22/2014 EDITH RUTH MD Ot 733.99 10/22/2014 SOLANO DO, ABIODUN Ot V58.62 10/22/2014 SOLANO DO, ABIODUN Ot V58.83 10/22/2014 SOLANO DO, ABIODUN Ot V58.62 10/22/2014 SOLANO DO, ABIODUN Ot V58.83 10/22/2014 Ot 414.00 10/22/2014 Ot 443.9 10/22/2014 Ot 786.50 10/22/2014 Ot V45.81 10/22/2014 Ot 272.4 10/22/2014 Ot 433.30 10/22/2014 Ot 780.4 10/22/2014 Ot 250.00 10/22/2014 Ot 729.5 10/22/2014 Ot 414.00 10/22/2014 Ot 433.10 10/22/2014 Ot 433.30 10/22/2014 Ot 780.2 10/22/2014 Ot 414.00 10/22/2014 Ot 780.2 10/22/2014 SHAYNA MCKAY Ot 278.00 10/22/2014 SHAYNA MCKAY Ot 401.9 10/22/2014 SHAYNA MCKAY Ot 414.00 10/22/2014 PHAN PAZ MD Ot 414.9 10/22/2014 BRANDI QUINTANILLA, PHAN Aguero Ot 585.9 10/22/2014 PHAN PAZ MD Ot V72.81 10/22/2014 VIKTORIA QUINTANILLA, FREDDIE Traore Ot 440.20 10/22/2014 VIKTORIA QUINTANILLA, FREDDIE Traore Ot 729.5 10/22/2014 VIKTORIA QUINTANILLA, FREDDIE S Ot V64.1 10/22/2014 VIKTORIA QUINTANILLA, FREDDIE S Ot 790.99 10/22/2014 Ot V58.62 10/22/2014 Ot V58.83 10/22/2014 Ot V58.62 10/22/2014 Ot V58.83 10/22/2014 Ot V58.62 10/22/2014 Ot V58.83 10/22/2014 SOLANO DO, ABIODUN Ot V58.62 10/22/2014 SOLANO DO, ABIODUN Ot V58.83 10/22/2014 SOLANO DO, ABIODUN Ot V58.69 10/22/2014 SOLANO DO, ABIODUN Ot V58.83 10/22/2014 SOLANO DO, ABIODUN Ot V58.62 10/22/2014 SOLANO DO, ABIODUN Ot V58.83 10/22/2014 SOLANO DO, ABIODUN Ot V58.62 10/22/2014 SOLANO DO, ABIODUN Ot V58.83 10/22/2014 SOLANO DO, ABIODUN Ot 730.27 10/22/2014 SOLANO DO, ABIODUN Ot V58.62 10/22/2014 SOLANO DO, ABIODUN Ot V58.69 10/22/2014 SOLANO DO, ABIODUN Ot V58.83 10/22/2014 VIKTORIA QUINTANILLA, FREDDIE S Ot 707.15 10/22/2014 SOLANO DO, ABIODUN Ot V58.62 10/22/2014 SOLANO DO, ABIODUN Ot V58.83 10/22/2014 SOLANO DO, ABIODUN Ot V58.81 10/22/2014 VIKTORIA QUINTANILLA, FREDDIE S Ot 709.8 10/22/2014 VIKTORIA QUINTANILLA, FREDDIE S Ot V72.63 10/22/2014 VIKTORIA QUINTANILLA, FREDDIE S Ot V74.8 10/22/2014 VIKTORIA QUINTANILLA, FREDDIE S Ot 892.0 10/22/2014 VIKTORIA QUINTANILLA, FREDDIE S Ot E000.8 10/22/2014 VIKTORIA QUINTANILLA, FREDDIE S Ot E928.9 10/22/2014 VIKTORIA QUINTANILLA, FREDDIE S Ot V72.84 10/22/2014 VIKTORIA QUINTANILLA, FREDDIE S Ot 892.0 10/22/2014 VIKTORIA QUINTANILLA, FREDDIE S Ot E000.8 10/22/2014 VIKTORIA QUINTANILLA, FREDDIE S Ot E928.9 10/22/2014 FLORY QUINTANILLA, EDITH Lane Ot 041.12 10/22/2014 FLORY QUINTANILLA, EDITH Lane Ot 041.7 10/22/2014 FLORY QUINTANILLA, EDITH Lane Ot 250.80 10/22/2014 FLORY QUINTANILLA, EDITH Lane Ot 707.14 10/22/2014 FLORY QUINTANILLA, EDITH Lane Ot 707.15 10/22/2014 VIKTORIA QUINTANILLA, FREDDIE S Ot 041.12 10/22/2014 FLORY QUINTANILLA, EDITH Lane Ot 707.15 10/22/2014 FLORY QUINTANILLA, EDITH Lane Ot V49.72 10/22/2014 FLORY QUINTANILLA, EDITH Lane Ot 250.80 10/22/2014 FLORY QUINTANILLA, EDITH Lane Ot 707.15 10/22/2014 FLORY QUINTANILLA, EDITH Lane Ot 733.99 10/22/2014 VIKTORIA QUINTANILLA, FREDDIE S Ot 459.81 10/22/2014 VIKTORIA QUINTANILLA, FREDDIE S Ot V72.84 10/22/2014 XIOMARA READ, ABIODUN Ot V58.62 10/22/2014 XIOMARA READ, ABIODUN Ot V58.83 10/22/2014 Ot 414.00 10/22/2014 Ot 443.9 10/22/2014 Ot 786.50 10/22/2014 Ot V45.81 10/22/2014 Ot 272.4 10/22/2014 Ot 433.30 10/22/2014 Ot 780.4 10/22/2014 Ot 250.00 10/22/2014 Ot 729.5 10/22/2014 Ot 414.00 10/22/2014 Ot 433.10 10/22/2014 Ot 433.30 10/22/2014 Ot 780.2 10/22/2014 Ot 414.00 10/22/2014 Ot 780.2 10/22/2014 SHAYNA MCKAY Ot 278.00 10/22/2014 SHAYNA MCKAY Ot 401.9 10/22/2014 SHAYNA MCKAY Ot 414.00 10/22/2014 BRANDI QUINTANILLA, PHAN Aguero Ot 414.9 10/22/2014 BRANDI QUINTANILLA, PHAN Aguero Ot 585.9 10/22/2014 BRANDI QUINTANILLA, PHAN Aguero Ot V72.81 10/22/2014 VIKTORIA QUINTANILLA, FREDDIE S Ot 440.20 10/22/2014 VIKTORIA QUINTANILLA, FREDDIE S Ot 729.5 10/22/2014 VIKTORIA QUINTANILLA, FREDDIE S Ot V64.1 10/22/2014 VIKTORIA QUINTANILLA, FREDDIE S Ot 790.99 10/22/2014 Ot V58.62 10/22/2014 Ot V58.83 10/22/2014 Ot V58.62 10/22/2014 Ot V58.83 10/22/2014 Ot V58.62 10/22/2014 Ot V58.83 10/22/2014 SOLANO DO, ABIODUN Ot V58.62 10/22/2014 SOLANO DO, ABIODUN Ot V58.83 10/22/2014 SOLANO DO, ABIODUN Ot V58.62 10/22/2014 SOLANO DO, ABIODUN Ot V58.83 10/22/2014 SOLANO DO, ABIODUN Ot V58.69 10/22/2014 SOLANO DO, ABIODUN Ot V58.83 10/22/2014 SOLANO DO, ABIODUN Ot V58.62 10/22/2014 SOLANO DO, ABIODUN Ot V58.83 10/22/2014 SOLANO DO, ABIODUN Ot V58.62 10/22/2014 SOLANO DO, ABIODUN Ot V58.83 10/22/2014 SOLANO DO, ABIODUN Ot 730.27 10/22/2014 SOLANO DO, ABIODUN Ot V58.62 10/22/2014 SOLANO DO, ABIODUN Ot V58.69 10/22/2014 SOLANO DO, ABIODUN Ot V58.83 10/22/2014 VIKTORIA QUINTANILLA, FREDDIE S Ot 707.15 10/22/2014 SOLANO DO, ABIODUN Ot V58.62 10/22/2014 SOLANO DO, ABIODUN Ot V58.83 10/22/2014 SOLANO DO, ABIODUN Ot V58.81 10/22/2014 VIKTORIA QUINTANILLA, FREDDIE S Ot 709.8 10/22/2014 VIKTORIA QUINTANILLA, FREDDIE S Ot V72.63 10/22/2014 VIKTORIA QUINTANILLA, FREDDIE S Ot V74.8 10/22/2014 VIKTORIA QUINTANILLA, FREDDIE S Ot 892.0 10/22/2014 VIKTORIA QUINATNILLA, FREDDIE S Ot E000.8 10/22/2014 VIKTORIA QUINTANILLA, FREDDIE Traore Ot E928.9 10/22/2014 VIKTORIA QUINTANILLA, FREDDIE S Ot V72.84 10/22/2014 VIKTROIA QUINTANILLA, FREDDIE S Ot 892.0 10/22/2014 VIKTORIA QUINTANILLA, FREDDIE S Ot E000.8 10/22/2014 VIKTORIA QUINTANILLA, FREDDIE S Ot E928.9 10/22/2014 FLORY QUINTANILLA, EDITH Lane Ot 041.12 10/22/2014 FLORY QUINTANILLA, EDITH Lane Ot 041.7 10/22/2014 FLORY QUINTANILLA, EDITH Lane Ot 250.80 10/22/2014 FLORY QUINTANILLA, EDITH Lane Ot 707.14 10/22/2014 FLORY QUINTANILLA, EDITH Lane Ot 707.15 10/22/2014 VIKTORIA QUINTANILLA, FREDDIE Traore Ot 041.12 10/22/2014 FLORY QUINTANILLA, EDITH Lane Ot 707.15 10/22/2014 FLORY QUINTANILLA, EDITH Lane Ot V49.72 10/22/2014 FLORY QUINTANILLA, EDITH Lane Ot 250.80 10/22/2014 FLORY QUINTANILLA, EDITH Lane Ot 707.15 10/22/2014 FLORY QUINTANILLA, EDITH Lane Ot 733.99 10/22/2014 VIKTORIA QUINTANILLA, FREDDIE S Ot 459.81 10/22/2014 VIKTORIA QUINTANILLA, FREDDIE Traore Ot V72.84 11/04/2014 FLORY UQINTANILLA, EDITH Lane Ot 707.15 11/04/2014 FLORY QUINTANILLA, EDITH Lane Ot V49.72 11/10/2014 VIKTORIA QUINTANILLA, FREDDIE S Ot 709.8 11/10/2014 VIKTORIA QUINTANILLA, FREDDIE S Ot V72.84 11/10/2014 VIKTORIA QUINTANILLA, FREDDIE S Ot 892.0 11/10/2014 VIKTORIA QUINTANILLA, FREDDIE S Ot E000.8 11/10/2014 VIKTORIA QUINTANILLA, FREDDIE S Ot E928.9 11/10/2014 FLORY QUINTANILLA, EDITH Lane Ot 250.80 11/10/2014 FLORY QUINTANILLA, EDITH Lane Ot 707.15 11/10/2014 FLORY QUINTANILLA, EDITH Lane Ot 733.99 11/12/2014 VIKTORIA QUINTANILLA, FREDDIE Traore Ot 250.80 DIAB W OTH SPEC MANIFEST, TYPE II OR UNS 11/12/2014 VIKTORIA QUINTANILLA, FREDDIE Traore Ot 707.15 ULCER OF OTHER PART OF FOOT 11/12/2014 FREDDIE BLUM MD Ot 707.15 12/01/2014 SOLANO DO, ABIODUN Ot 244.9 12/01/2014 SOLANO DO, ABIODUN Ot 250.00 12/01/2014 SOLANO DO, ABIODUN Ot 272.1 12/01/2014 SOLANO DO, ABIODUN Ot 280.8 12/01/2014 SOLANO DO, ABIODUN Ot 401.1 12/01/2014 SOLANO DO, ABIODUN Ot 414.00 12/01/2014 SOLANO DO, ABIODUN Ot 593.9 12/01/2014 SOLANO DO, ABIODUN Ot 730.07 12/01/2014 SOLANO DO, ABIODUN Ot V45.81 12/01/2014 SOLANO DO, ABIODUN Ot V58.69 12/22/2014 FREDDIE BLUM MD Ot 041.12 METHICILLIN RESISTANT STAPHYLOCOCCUS AUR 12/22/2014 FREDDIE BLUM MD Ot 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 12/22/2014 FREDDIE BLUM MD Ot 244.9 HYPOTHYROIDISM NOS 12/22/2014 FREDDIE BLUM MD Ot 250.80 DIAB W OT SPEC MANIFEST, TYPE II OR UNS 12/22/2014 FREDDIE BLUM MD Ot 401.9 HYPERTENSION NOS 12/22/2014 FREDDIE BLUM MD Ot 414.00 CORON ATHEROSCLER NOS TYPE VESSEL, NATIV 12/22/2014 FREDDIE BLUM MD Ot 443.9 PERIPH VASCULAR DIS NOS 12/22/2014 FREDDIE BLUM MD Ot 530.81 ESOPHAGEAL REFLUX 12/22/2014 FREDDIE BLUM MD Ot 707.14 ULCER OF HEEL AND MIDFOOT 12/22/2014 FREDDIE BLUM MD Ot 707.15 ULCER OF OTHER PART OF FOOT 12/22/2014 FREDDIE BLUM MD Ot 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 12/22/2014 FREDDIE BLUM MD Ot 996.74 OT COMPL DUE TO [facility] VASCULAR DEVICE, IMP 12/22/2014 FREDDIE BLUM MD Ot V45.81 AORTOCORONARY BYPASS 12/22/2014 FREDDIE BLUM MD Ot V49.72 OTHER TOE(S) AMPUTATION STATUS 12/22/2014 FREDDIE BLUM MD Ot V58.69 OT MED,LT,CURRENT USE 01/27/2015 Ot 433.30 01/27/2015 Ot 780.4 01/27/2015 VIKTORIA QUINTANILLA, FREDDIE Traore Ot I87.2 01/27/2015 Ot V58.62 01/27/2015 Ot V58.83 01/27/2015 SOLANO DO, ABIODUN Ot V58.69 01/27/2015 SOLANO DO, ABIODUN Ot V58.83 01/27/2015 SOLANO DO, ABIODUN Ot V58.81 01/27/2015 Ot V58.62 01/27/2015 Ot V58.83 01/27/2015 Ot V58.62 01/27/2015 Ot V58.83 02/14/2015 Ot 433.30 02/14/2015 Ot 780.4 02/14/2015 Ot V58.62 02/14/2015 Ot V58.83 02/14/2015 Ot V58.62 02/14/2015 Ot V58.83 02/14/2015 Ot V58.62 02/14/2015 Ot V58.83 02/14/2015 SOLANO DO, ABIODUN Ot V58.69 02/14/2015 SOLANO DO, ABIODUN Ot V58.83 02/14/2015 SOLANO DO, ABIODUN Ot V58.81 02/14/2015 VIKTORIA QUINTANILLA, FREDDIE Traore Ot I87.2 03/15/2015 RAVEN QUINTANILLA, MIKHAIL Jackson Ot E11.621 03/15/2015 MIKHAIL CARBAJAL MD Ot L97.422 03/16/2015 RAVEN QUINTANILLA, MIKHAIL Jackson Ot E11.621 03/16/2015 RAVEN QUINTANILLA, MIKHAIL Jackson Ot L97.422 03/16/2015 MIKHAIL CARBAJAL MD Ot E11.621 03/16/2015 MIKHAIL CARBAJAL MD Ot L97.422 03/17/2015 MIKHAIL CARBAJAL MD Ot E11.621 03/17/2015 MIKHAIL CARBAJAL MD Ot L97.422 03/18/2015 MIKHAIL CARBAJAL MD Ot E11.621 03/18/2015 MIKHAIL CARBAJAL MD Ot L97.422 03/18/2015 MIKHAIL CARBAJAL MD Ot E11.621 03/18/2015 RAVEN QUINTANILLA, MIKHAIL Jackson Ot L97.422 03/19/2015 MIKHAIL CARBAJAL MD Ot E11.621 03/19/2015 MIKHAIL CARBAJAL MD Ot L97.422 03/19/2015 RAVEN QUINTANILLA, MIKHAIL Jackson Ot E11.621 03/19/2015 RAVEN QUINTANILLA, MIKHAIL Jackson Ot L97.422 03/22/2015 RAVEN QUINTANILLA, MIKHAIL Jackson Ot E11.621 03/22/2015 RAVEN QUINTANILLA, MIKHAIL Jackson Ot L97.422 03/23/2015 RAVEN QUINTANILLA, MIKHAIL Jackson Ot E11.621 03/23/2015 RAVEN QUINTANILLA, MIKHAIL Jackson Ot L97.422 03/24/2015 RAVEN QUINTANILLA, MIKHAIL Jackson Ot E11.621 03/24/2015 RAVEN QUINTANILLA, MIKHAIL Jackson Ot L97.422 03/25/2015 RAVEN QUINTANILLA, MIKHAIL Jackson Ot E11.621 03/25/2015 RAVEN QUINTANILLA, MIKHAIL Jackson Ot L97.422 03/28/2015 RAVEN QUINTANILLA, MIKHAIL Jackson Ot E11.621 03/28/2015 RAVEN QUINTANILLA, MIKHAIL Jackson Ot L97.422 03/30/2015 RAVEN QUINTANILLA, MIKHAIL Jackson Ot E11.621 03/30/2015 RAVEN QUINTANILLA, MIKHAIL Jackson Ot L97.422 03/30/2015 RAVEN QUINTANILLA, MIKHAIL Jackson Ot E11.621 03/30/2015 RAVEN QUINTANILLA, MIKHAIL Jackson Ot L97.422 03/31/2015 RAVEN QUINTANILLA, MIKHAIL Jackson Ot E11.621 03/31/2015 RAVEN QUINTANILLA, MIKHAIL Jackson Ot L97.422 03/31/2015 RAVEN QUINTANILLA, MIKHAIL Jackson Ot E11.621 03/31/2015 RAVEN QUINTANILLA, MIKHAIL Jackson Ot L97.422 03/31/2015 Ot V58.62 03/31/2015 Ot V58.83 03/31/2015 Ot V58.62 03/31/2015 Ot V58.83 04/01/2015 RAVEN QUINTANILLA, MIKHAIL Jackson Ot E11.621 04/01/2015 RAVEN QUINTANILLA, MIKHAIL Jackson Ot L97.422 04/01/2015 MIKHAIL CARBAJAL MD Ot E11.621 04/01/2015 RAVEN QUINTANILLA, MIKHAIL Jackson Ot L97.422 04/01/2015 RAVEN QUINTANILLA, MIKHAIL Jackson Ot E11.621 TYPE 2 DIABETES MELLITUS WITH FOOT ULCER 04/01/2015 RAVEN QUINTANILLA, MIKHAIL Jackson Ot L97.422 NON-PRS CHR ULCER OF LEFT HEEL AND MIDFO 04/05/2015 RAVEN QUINTANILLA, MIKHAIL Jackson Ot E11.621 04/05/2015 RAVEN QUINTANILLA, MIKHAIL Jackson Ot L97.422 04/14/2015 VIKTORIA QUINTANILLA, FREDDIE Traore Ot I87.2 VENOUS INSUFFICIENCY (CHRONIC) (PERIPHER 04/14/2015 Ot 959.09 04/14/2015 Ot E849.0 04/14/2015 Ot E917.9 04/14/2015 Ot 397.0 04/14/2015 Ot 414.00 04/14/2015 Ot 424.0 04/14/2015 Ot 443.9 04/14/2015 Ot 786.50 04/14/2015 Ot V45.81 04/14/2015 Ot 414.00 04/14/2015 Ot 443.9 04/14/2015 Ot 786.50 04/14/2015 Ot V45.81 04/14/2015 Ot 272.4 04/14/2015 Ot 433.30 04/14/2015 Ot 780.4 04/14/2015 Ot 272.4 04/14/2015 Ot 401.9 04/14/2015 Ot 414.01 04/14/2015 Ot 443.9 04/14/2015 Ot V58.67 04/14/2015 Ot V58.69 04/14/2015 Ot 397.0 04/14/2015 Ot 401.9 04/14/2015 Ot 414.00 04/14/2015 Ot 424.0 04/14/2015 Ot 443.9 04/14/2015 Ot 272.4 04/14/2015 Ot 401.9 04/14/2015 Ot 414.00 04/14/2015 Ot 443.9 04/14/2015 Ot 791.9 04/14/2015 Ot 794.39 04/14/2015 Ot V45.81 04/14/2015 Ot V72.63 04/14/2015 Ot V72.81 04/14/2015 Ot 250.00 04/14/2015 Ot 729.5 04/14/2015 Ot 414.00 04/14/2015 Ot 433.10 04/14/2015 Ot 433.30 04/14/2015 Ot 780.2 04/14/2015 Ot 414.00 04/14/2015 Ot 780.2 04/14/2015 SHAYNA MCKAY Ot 278.00 04/14/2015 SHAYNA MCKAY Ot 401.9 04/14/2015 SHAYNA MCKAY Ot 414.00 04/14/2015 BRANDI QUINTANILLA, PHAN Aguero Ot 414.9 04/14/2015 PHAN PAZ MD Ot 585.9 04/14/2015 BRANDI QUINTANILLA, PHAN N Ot V72.81 04/14/2015 VIKTORIA QUINTANILLA, FREDDIE S Ot 440.20 04/14/2015 VIKTORIA QUINTANILLA, FREDDIE S Ot 729.5 04/14/2015 VIKTORIA QUINTANILLA, FREDDIE S Ot V64.1 04/14/2015 VIKTORIA QUINTANILLA, FREDDIE S Ot 790.99 04/14/2015 Ot V58.62 04/14/2015 Ot V58.83 04/14/2015 Ot V58.62 04/14/2015 Ot V58.83 04/14/2015 Ot V58.62 04/14/2015 Ot V58.83 04/14/2015 SOLANO DO, ABIODUN Ot V58.62 04/14/2015 SOLANO DO, ABIODUN Ot V58.83 04/14/2015 SOLANO DO, ABIODUN Ot V58.62 04/14/2015 SOALNO DO, ABIODUN Ot V58.83 04/14/2015 SOLANO DO, ABIODUN Ot V58.69 04/14/2015 SOLANO DO, ABIODUN Ot V58.83 04/14/2015 SOLANO DO, ABIODUN Ot V58.62 04/14/2015 SOLANO DO, ABIODUN Ot V58.83 04/14/2015 SOLANO DO, ABIODUN Ot V58.62 04/14/2015 SOLANO DO, ABIODUN Ot V58.83 04/14/2015 SOLANO DO, ABIODUN Ot 730.27 04/14/2015 SOLANO DO, ABIODUN Ot V58.62 04/14/2015 SOLANO DO, ABIODUN Ot V58.69 04/14/2015 SOLANO DO, ABIODUN Ot V58.83 04/14/2015 VIKTORIA QUINTANILLA, FREDDIE S Ot 707.15 04/14/2015 SOLANO DO, ABIODUN Ot V58.62 04/14/2015 SOLANO DO, ABIODUN Ot V58.83 04/14/2015 SOLANO DO, ABIODUN Ot V58.81 04/14/2015 VIKTORIA QUINTANILLA, FREDDIE S Ot 709.8 04/14/2015 VIKTORIA QUINTANILLA, FREDDIE S Ot V72.63 04/14/2015 VIKTORIA QUINTANILLA, FREDDIE S Ot V74.8 04/14/2015 VIKTORIA QUINTANILLA, FREDDIE S Ot 892.0 04/14/2015 VIKTORIA QUINTANILLA, FREDDIE S Ot E000.8 04/14/2015 VIKTORIA QUINTANILLA, FREDDIE S Ot E928.9 04/14/2015 VIKTORIA QUINTANILLA, FREDDIE S Ot V72.84 04/14/2015 VIKTORIA QUINTANILLA, FREDDIE S Ot 892.0 04/14/2015 VIKTORIA QUINTANILLA, FREDDIE S Ot E000.8 04/14/2015 VIKTORIA QUINTANILLA, FREDDIE S Ot E928.9 04/14/2015 FLORY QUINTANILLA, EDITH Lane Ot 707.15 04/14/2015 FLORY QUINTANILLA, EDITH Lane Ot V49.72 04/14/2015 FLORY QUINTANILLA, EDITH Lane Ot 250.80 04/14/2015 FLORY QUINTANILLA, EDITH Lane Ot 707.15 04/14/2015 FLORY QUINTANILLA, EDITH Lane Ot 733.99 04/14/2015 VIKTORIA QUINTANILLA, FREDDIE S Ot 459.81 04/14/2015 VIKTORIA QUINTANILLA, FREDDIE Traore Ot V72.84 04/14/2015 VIKTORIA QUINTANILLA, FREDDIE S Ot 707.15 04/14/2015 SOLANO DO, ABIODUN Ot 244.9 04/14/2015 SOLANO DO, ABIODUN Ot 250.00 04/14/2015 SOLANO DO, ABIODUN Ot 272.1 04/14/2015 SOLANO DO, ABIODUN Ot 280.8 04/14/2015 SOLANO DO, ABIODUN Ot 401.1 04/14/2015 SOLANO DO, ABIODUN Ot 414.00 04/14/2015 SOLANO DO, ABIODUN Ot 593.9 04/14/2015 SOLANO DO, ABIODUN Ot 730.07 04/14/2015 SOLANO DO, ABIODUN Ot V45.81 04/14/2015 SOLANO DO, ABIODUN Ot V58.69 04/14/2015 VIKTORIA QUINTANILLA, FREDDIE S Ot 709.8 04/14/2015 VIKTORIA QUINTANILLA, FREDDIE Traore Ot V72.84 04/14/2015 VIKTORIA QUINTANILLA, FREDDIE Traore Ot I87.2 04/14/2015 RAVEN QUINTANILLA, MIKHAIL Jackson Ot E11.621 04/14/2015 RAVEN QUINTANILLA, MIKHAIL Jackson Ot L97.412 04/14/2015 RAVEN QUINTANILLA, MIKHAIL Jackson Ot E11.621 04/14/2015 RAVEN QUINTANILLA, MIKHAIL Jackson Ot L97.422 04/14/2015 RAVEN QUINTANILLA, MIKHAIL Jackson Ot E11.621 04/14/2015 RAVEN QUINTANILLA, MIKHAIL Jackson Ot L97.422 04/14/2015 Ot 433.30 04/14/2015 Ot 780.4 04/14/2015 Ot 250.00 04/14/2015 Ot 729.5 04/14/2015 Ot 414.00 04/14/2015 Ot 433.10 04/14/2015 Ot 433.30 04/14/2015 Ot 780.2 04/14/2015 Ot 414.00 04/14/2015 Ot 780.2 04/14/2015 HARJINDER PA, SHAYNA Lemus Ot 278.00 04/14/2015 HARJINDER PA, SHAYNA K Ot 401.9 04/14/2015 HARJINDER MOSCOSO, SHAYNA K Ot 414.00 04/14/2015 BRANDI QUINTANILLA, PHAN Aguero Ot 414.9 04/14/2015 BRANDI QUINTANILLA, PHAN Aguero Ot 585.9 04/14/2015 BRANDI QUINTANILLA, PHAN Aguero Ot V72.81 04/14/2015 VIKTORIA QUINTANILLA, FREDDIE S Ot 440.20 04/14/2015 VIKTORIA QUINTANILLA, FREDDIE S Ot 729.5 04/14/2015 VIKTORIA QUINTANILLA, FREDDIE S Ot V64.1 04/14/2015 VIKTORIA QUINTANILLA, FREDDIE S Ot 790.99 04/14/2015 Ot V58.62 04/14/2015 Ot V58.83 04/14/2015 Ot V58.62 04/14/2015 Ot V58.83 04/14/2015 Ot V58.62 04/14/2015 Ot V58.83 04/14/2015 SOLANO DO, ABIODUN Ot V58.62 04/14/2015 SOLANO DO, ABIODUN Ot V58.83 04/14/2015 SOLANO DO, ABIODUN Ot V58.62 04/14/2015 SOLANO DO, ABIODUN Ot V58.83 04/14/2015 SOLANO DO, ABIODUN Ot V58.69 04/14/2015 SOLANO DO, ABIODUN Ot V58.83 04/14/2015 SOLANO DO, ABIODUN Ot V58.62 04/14/2015 SOLANO DO, ABIODUN Ot V58.83 04/14/2015 SOLANO DO, ABIODUN Ot V58.62 04/14/2015 SOLANO DO, ABIODUN Ot V58.83 04/14/2015 SOLANO DO, ABIODUN Ot 730.27 04/14/2015 SOLANO DO, ABIODUN Ot V58.62 04/14/2015 SOLANO DO, ABIODUN Ot V58.69 04/14/2015 SOLANO DO, ABIODUN Ot V58.83 04/14/2015 VIKTORIA QUINTANILLA, FREDDIE S Ot 707.15 04/14/2015 SOLANO DO, ABIODUN Ot V58.62 04/14/2015 SOLANO DO, ABIODUN Ot V58.83 04/14/2015 SOLANO DO, ABIODUN Ot V58.81 04/14/2015 VIKTORIA QUINTANILLA, FREDDIE S Ot 709.8 04/14/2015 VIKTORIA QUINTANILLA, FREDDIE S Ot V72.63 04/14/2015 VIKTORIA QUINTANILLA, FREDDIE S Ot V74.8 04/14/2015 VIKTORIA QUINTANILLA, FREDDIE S Ot 892.0 04/14/2015 VIKTORIA QUINTANILLA, FREDDIE S Ot E000.8 04/14/2015 VIKTORIA QUINTANILLA, FREDDIE S Ot E928.9 04/14/2015 VIKTORIA QUINTANILLA, FREDDIE S Ot V72.84 04/14/2015 VIKTORIA QUINTANILLA, FREDDIE S Ot 892.0 04/14/2015 VIKTORIA QUINTANILLA, FREDDIE S Ot E000.8 04/14/2015 VIKTORIA QUINTANILLA, FREDDIE S Ot E928.9 04/14/2015 FLORY QUINTANILLA, EDITH Lane Ot 707.15 04/14/2015 FLORY QUINTANILLA, EDITH Lane Ot V49.72 04/14/2015 FLORY QUINTANILLA, EDITH Lane Ot 250.80 04/14/2015 FLORY QUINTANILLA, EDITH Lane Ot 707.15 04/14/2015 FLORY QUINTANILLA, EDITH Lane Ot 733.99 04/14/2015 VIKTORIA QUINTANILLA, FREDDIE S Ot 459.81 04/14/2015 VIKTORIA QUINTANILLA, FREDDIE S Ot V72.84 04/14/2015 VIKTORIA QUINTANILLA, FREDDIE S Ot 707.15 04/14/2015 SOLANO DO, ABIODUN Ot 244.9 04/14/2015 SOLANO DO, ABIODUN Ot 250.00 04/14/2015 SOLANO DO, ABIODUN Ot 272.1 04/14/2015 SOLANO DO, ABIODUN Ot 280.8 04/14/2015 SOLANO DO, ABIODUN Ot 401.1 04/14/2015 SOLANO DO, ABIODUN Ot 414.00 04/14/2015 SOLANO DO, ABIODUN Ot 593.9 04/14/2015 SOLANO DO, ABIODUN Ot 730.07 04/14/2015 SOLANO DO, ABIODUN Ot V45.81 04/14/2015 SOLANO DO, ABIODUN Ot V58.69 04/14/2015 VIKTORIA QUINTANILLA, FREDDIE S Ot 709.8 04/14/2015 VIKTORIA QUINTANILLA, FREDDIE S Ot V72.84 04/14/2015 VIKTORIA QUINTANILLA, FREDDIE S Ot I87.2 04/14/2015 RAVEN QUINTANILLA, MIKHAIL Jackson Ot E11.621 04/14/2015 RAVEN QUINTANILLA, MIKHAIL Jackson Ot L97.412 04/14/2015 RAVEN QUINTANILLA, MIKHAIL Jackson Ot E11.621 04/14/2015 RAVEN QUINTANILLA, MIKHAIL Jackson Ot L97.422 04/14/2015 RAVEN QUINTANILLA, MIKHAIL Jackson Ot E11.621 04/14/2015 RAVEN QUINTANILLA, MIKHAIL Jackson Ot L97.422 05/02/2015 RAVEN QUINTANILLA, MIKHAIL Jackson Ot E11.621 05/02/2015 MIKHAIL CARBAJAL MD Ot L97.412 05/03/2015 BLANCHO DPM, KIARRA Lane Ot E11.621 TYPE 2 DIABETES MELLITUS WITH FOOT ULCER 05/03/2015 BLANCHO DPM, KIARRA Lane Ot L97.329 NON-PRESSURE CHRONIC ULCER OF LEFT ANKLE 05/03/2015 BLANCHO DPM, KIARRA Lane Ot Z53.9 PROCEDURE AND TREATMENT NOT CARRIED OUT, 05/05/2015 BLANCHO DPM, KIARRA Lane Ot E11.621 05/05/2015 BLANCHO DPM, KIARRA Lane Ot L97.329 05/05/2015 BLANCHO DPM, KIARRA Lane Ot Z53.9 05/17/2015 RAVEN QUINTANILLA, MIKHAIL Jackson Ot E11.621 05/17/2015 RAVEN QUINTANILLA, MIKHAIL Jackson Ot L97.422 05/18/2015 RAVEN QUINTANILLA, MIKHAIL Jackson Ot E11.621 05/18/2015 MIKHAIL CARBAJAL MD Ot L97.422 05/19/2015 RAVEN QUINTANILLA, MIKHAIL Jackson Ot E11.621 05/19/2015 RAVEN QUINTANILLA, MIKHAIL Jackson Ot L97.422 05/20/2015 RAVEN QUINTANILLA, MIKHAIL Jackson Ot E11.621 05/20/2015 RAVEN QUINTANILLA, MIKHAIL Jackson Ot L97.422 05/21/2015 RAVEN QUINTANILLA, MIKHAIL Jackson Ot E11.621 05/21/2015 RAVEN QUINTANILLA, MIKHAIL Jackson Ot L97.422 05/22/2015 RAVEN QUINTANILLA, MIKHAIL Jackson Ot E11.621 05/22/2015 RAVEN QUINTANILLA, MIKHAIL Jackson Ot L97.422 05/23/2015 RAVEN QUINTANILLA, MIKHAIL Jackson Ot E11.621 05/23/2015 RAVEN QUINTANILLA, MIKHAIL Jackson Ot L97.422 05/23/2015 RAVEN QUINTANILLA, MIKHAIL Jackson Ot E11.621 05/23/2015 RAVEN QUINTANILLA, MIKHAIL Jackson Ot L97.422 05/24/2015 RAVEN QUINTANILLA, MIKHAIL Jackson Ot E11.621 05/24/2015 RAVEN QUINTANILLA, MIKHAIL Jackson Ot L97.422 05/25/2015 RAVEN QUINTANILLA, MIKHAIL Jackson Ot E11.621 TYPE 2 DIABETES MELLITUS WITH FOOT ULCER 05/25/2015 RAVEN QUINTANILLA, MIKHAIL Jackson Ot L97.412 NON-PRS CHR ULCER OF RIGHT HEEL AND MIDF 05/25/2015 BLANCHO DPM, KIARRA Lane Ot E11.621 05/25/2015 BLANCHO DPM, KIARRA Lane Ot L97.329 05/25/2015 BLANCHO DPM, KIARRA Lane Ot Z53.9 05/25/2015 RAVEN QUINTANILLA, MIKHAIL Jackson Ot E11.621 05/25/2015 MIKHAIL CARBAJAL MD Ot L97.422 05/26/2015 RAVEN QUINTANILLA, MIKHAIL Jackson Ot E11.621 05/26/2015 RAVEN QUINTANILLA, MIKHAIL Jackson Ot L97.422 05/26/2015 RAVEN QUINTANILLA, MIKHAIL Jackson Ot E11.621 05/26/2015 MIKHAIL CARBAJAL MD Ot L97.412 05/27/2015 RAVEN QUINTANILLA, MIKHAIL Jackson Ot E11.621 05/27/2015 MIKHAIL CARBAJAL MD Ot L97.412 05/27/2015 RAVEN QUINTANILLA, MIKHAIL Jackson Ot E11.621 05/27/2015 RAVEN QUINTANILLA, MIKHAIL Jackson Ot L97.422 05/28/2015 MIKHAIL CARBAJAL MD Ot E11.621 05/28/2015 MIKHAIL CARBAJAL MD Ot L97.422 05/29/2015 RAVEN QUINTANILLA, MIKHAIL Jackson Ot E11.621 05/29/2015 MIKHAIL CARBAJAL MD Ot L97.422 05/30/2015 RAVEN QUINTANILLA, MIKHAIL Jackson Ot E11.621 05/30/2015 MIKHAIL CARBAJAL MD, Ot L97.422 06/01/2015 MIKHAIL CARBAJAL MD, Ot E11.621 06/01/2015 MIKHAIL CARBAJAL MD, Ot L97.412 06/02/2015 MIKHAIL CARBAJAL MD, Ot E11.621 06/02/2015 MIKHAIL CARBAJAL MD, Ot L97.422 06/14/2015 MIKHAIL CARBAJAL MD, Ot E11.621 06/14/2015 MIKHAIL CARBAJAL MD, Ot L97.422 06/28/2015 EDITH PETERSEN MD Ot T70.29XA OTHER EFFECTS OF HIGH ALTITUDE, INITIAL 06/28/2015 EDITH PETERSEN MD Ot Z01.812 ENCOUNTER FOR PREPROCEDURAL LABORATORY E 06/28/2015 EDITH PETERSEN MD Ot Z11.2 ENCOUNTER FOR SCREENING FOR OTHER BACTER 06/29/2015 EDITH PETERSEN MD Ot T70.29XA 06/29/2015 EDITH PETERSEN MD Ot Z01.812 06/29/2015 EDITH PETERSEN MD Ot Z11.2 06/30/2015 EDITH PETERSEN MD Ot E11.9 TYPE 2 DIABETES MELLITUS WITHOUT COMPLIC 06/30/2015 EDITH PETERSEN MD Ot T70.29XA OTHER EFFECTS OF HIGH ALTITUDE, INITIAL 07/12/2015 JOE RON DC Ot M25.551 PAIN IN RIGHT HIP 07/12/2015 JOE RON DC Ot M54.5 LOW BACK PAIN 07/14/2015 EDITH PETERSEN MD Ot E11.9 TYPE 2 DIABETES MELLITUS WITHOUT COMPLIC 07/14/2015 EDITH PETERSEN MD Ot T70.29XA OTHER EFFECTS OF HIGH ALTITUDE, INITIAL 07/27/2015 JOE RON DC Ot M25.551 PAIN IN RIGHT HIP 07/27/2015 JOE RON DC Ot M54.5 LOW BACK PAIN 07/28/2015 SOLANO DO, ABIODUN Ot I87.2 VENOUS INSUFFICIENCY (CHRONIC) (PERIPHER 07/29/2015 SOLANO DO, ABIODUN Ot I87.2 VENOUS INSUFFICIENCY (CHRONIC) (PERIPHER 07/29/2015 SOLANO DO, ABIODUN Ot I87.2 VENOUS INSUFFICIENCY (CHRONIC) (PERIPHER 08/14/2015 MIKHAIL CARBAJAL MD Ot E11.621 TYPE 2 DIABETES MELLITUS WITH FOOT ULCER 08/14/2015 MIKHAIL CARBAJAL MD, Ot L97.422 NON-PRS CHR ULCER OF LEFT HEEL AND MIDFO 08/15/2015 MIKHAIL CARBAJAL MD Ot E11.621 TYPE 2 DIABETES MELLITUS WITH FOOT ULCER 08/15/2015 MIKHAIL CARBAJAL MD Ot L97.412 NON-PRS CHR ULCER OF RIGHT HEEL AND MIDF 08/19/2015 MIKHAIL CARBAJAL MD Ot E11.621 TYPE 2 DIABETES MELLITUS WITH FOOT ULCER 08/19/2015 MIKHAIL CARBAJAL MD Ot L97.422 NON-PRS CHR ULCER OF LEFT HEEL AND MIDFO 08/24/2015 MIKHAIL CARBAJAL MD Ot E11.621 TYPE 2 DIABETES MELLITUS WITH FOOT ULCER 08/24/2015 MIKHAIL CARBAJAL MD Ot L97.412 NON-PRS CHR ULCER OF RIGHT HEEL AND MIDF 08/25/2015 MIKHAIL CARBAJAL MD Ot E11.621 TYPE 2 DIABETES MELLITUS WITH FOOT ULCER 08/25/2015 MIKHAIL CARBAJAL MD Ot L97.412 NON-PRS CHR ULCER OF RIGHT HEEL AND MIDF 08/25/2015 SOLANO DO, ABIODUN Ot I87.2 VENOUS INSUFFICIENCY (CHRONIC) (PERIPHER 2015 MIKHAIL CARBAJAL MD Ot E11.621 TYPE 2 DIABETES MELLITUS WITH FOOT ULCER 2015 MIKHAIL CARBAJAL MD Ot L97.412 NON-PRS CHR ULCER OF RIGHT HEEL AND MIDF 09/01/2015 MIKHAIL CARBAJAL MD Ot E11.621 TYPE 2 DIABETES MELLITUS WITH FOOT ULCER 09/01/2015 MIKHAIL CARBAJAL MD Ot L97.412 NON-PRS CHR ULCER OF RIGHT HEEL AND MIDF 09/13/2015 MIKHAIL CARBAJAL MD Ot E11.621 TYPE 2 DIABETES MELLITUS WITH FOOT ULCER 09/13/2015 MIKHAIL CARBAJAL MD Ot L97.422 NON-PRS CHR ULCER OF LEFT HEEL AND MIDFO 09/27/2015 SOLANO DO, ABIODUN Ot I87.2 VENOUS INSUFFICIENCY (CHRONIC) (PERIPHER 09/27/2015 SOLANO DO, ABIODUN Ot I87.2 VENOUS INSUFFICIENCY (CHRONIC) (PERIPHER 10/26/2015 SOLANO DO, ABIODUN Ot I87.2 VENOUS INSUFFICIENCY (CHRONIC) (PERIPHER 10/26/2015 SOLANO DO, ABIODUN Ot I87.2 VENOUS INSUFFICIENCY (CHRONIC) (PERIPHER 10/26/2015 SOLANO DO, ABIODUN Ot I87.2 VENOUS INSUFFICIENCY (CHRONIC) (PERIPHER 11/03/2015 SOLANO DO, ABIODUN Ot I87.2 VENOUS INSUFFICIENCY (CHRONIC) (PERIPHER 11/24/2015 FREDDIE BLUM MD Ot 707.15 ULCER OF OTHER PART OF FOOT 11/25/2015 RAVEN QUINTANILLA, MIKHAIL Jackson Ot E11.621 TYPE 2 DIABETES MELLITUS WITH FOOT ULCER 11/25/2015 MIKHAIL CARBAJAL MD Ot L97.412 NON-PRS CHR ULCER OF RIGHT HEEL AND MIDF 11/25/2015 SOLANO DO, ABIODUN Ot I87.2 VENOUS INSUFFICIENCY (CHRONIC) (PERIPHER 11/29/2015 SOLANO DO, ABIODUN Ot I87.2 VENOUS INSUFFICIENCY (CHRONIC) (PERIPHER 12/26/2015 SOLANO DO, ABIODUN Ot I87.2 VENOUS INSUFFICIENCY (CHRONIC) (PERIPHER 01/26/2016 SOLANO DO, ABIODUN Ot I87.2 VENOUS INSUFFICIENCY (CHRONIC) (PERIPHER 01/26/2016 SOLANO DO, ABIODUN Ot I87.2 VENOUS INSUFFICIENCY (CHRONIC) (PERIPHER 02/07/2016 Ot 250.00 DIAB CONRADO WO COMPL, TYPE II OR UNSPEC TY 02/07/2016 Ot 729.5 PAIN IN LIMB 02/07/2016 Ot 414.00 CORON ATHEROSCLER NOS TYPE VESSEL, NATIV 02/07/2016 Ot 433.10 CAROTID ARTERY OCCLUSION W O CEREBRAL IN 02/07/2016 Ot 433.30 MULT BILTRAL ARTERY OCCLUSION WO CEREBRA 02/07/2016 Ot 780.2 SYNCOPE AND COLLAPSE 02/07/2016 Ot 414.00 CORON ATHEROSCLER NOS TYPE VESSEL, NATIV 02/07/2016 Ot 780.2 SYNCOPE AND COLLAPSE 02/07/2016 SHAYNA MCKAY Ot 278.00 OBESITY, NOS 02/07/2016 SHAYNA MCKAY Ot 401.9 HYPERTENSION NOS 02/07/2016 SHAYNA MCKAY Ot 414.00 CORON ATHEROSCLER NOS TYPE VESSEL, NATIV 02/07/2016 PHAN PAZ MD Ot 414.9 CHR ISCHEMIC HRT DIS NOS 02/07/2016 PHAN PAZ MD Ot 585.9 CHRONIC KIDNEY DISEASE, UNSPECIFIED 02/07/2016 PHAN PAZ MD Ot V72.81 [id number] CARDIOVASCULAR 02/07/2016 FREDDIE BLUM MD Ot 440.20 ATHEROSCLEROSIS NAVAJO ARTERIES EXTREMIT 02/07/2016 FREDDIE BLUM MD Ot 729.5 PAIN IN LIMB 02/07/2016 FREDDIE BLUM MD Ot V64.1 NO PROC/CONTRAINDICATION 02/07/2016 VIKTORIA QUINTANILLA, FREDDIE Traore Ot 790.99 BLOOD EXAM - OTH NONSPECIFIC FINDINGS 02/07/2016 Ot V58.62 ENCOUNT FOR LONG-TERM(CURRENT) USE OF AN 02/07/2016 Ot V58.83 ENCOUNTER FOR THERAPEUTIC DRUG MONITORIN 02/07/2016 Ot V58.62 ENCOUNT FOR LONG-TERM(CURRENT) USE OF AN 02/07/2016 Ot V58.83 ENCOUNTER FOR THERAPEUTIC DRUG MONITORIN 02/07/2016 Ot V58.62 ENCOUNT FOR LONG-TERM(CURRENT) USE OF AN 02/07/2016 Ot V58.83 ENCOUNTER FOR THERAPEUTIC DRUG MONITORIN 02/07/2016 SOLANO DO, ABIODUN Ot V58.62 ENCOUNT FOR LONG-TERM(CURRENT) USE OF AN 02/07/2016 SOLANO DO, ABIODUN Ot V58.83 ENCOUNTER FOR THERAPEUTIC DRUG MONITORIN 02/07/2016 SOLANO DO, ABIODUN Ot V58.62 ENCOUNT FOR LONG-TERM(CURRENT) USE OF AN 02/07/2016 SOLANO DO, ABIODUN Ot V58.83 ENCOUNTER FOR THERAPEUTIC DRUG MONITORIN 02/07/2016 SOLANO DO, ABIODUN Ot V58.69 OTH MED,LT,CURRENT USE 02/07/2016 SOLANO DO, ABIODUN Ot V58.83 ENCOUNTER FOR THERAPEUTIC DRUG MONITORIN 02/07/2016 SOLANO DO, ABIODUN Ot V58.62 ENCOUNT FOR LONG-TERM(CURRENT) USE OF AN 02/07/2016 SOLANO DO, ABIODUN Ot V58.83 ENCOUNTER FOR THERAPEUTIC DRUG MONITORIN 02/07/2016 SOLANO DO, ABIODUN Ot V58.62 ENCOUNT FOR LONG-TERM(CURRENT) USE OF AN 02/07/2016 SOLANO DO, ABIODUN Ot V58.83 ENCOUNTER FOR THERAPEUTIC DRUG MONITORIN 02/07/2016 SOLANO DO, ABIODUN Ot 730.27 OSTEOMYELITIS NOS-ANKLE 02/07/2016 SOLANO DO, ABIODUN Ot V58.62 ENCOUNT FOR LONG-TERM(CURRENT) USE OF AN 02/07/2016 SOLANO DO, ABIODUN Ot V58.69 OTH MED,LT,CURRENT USE 02/07/2016 SOLANO DO, ABIODUN Ot V58.83 ENCOUNTER FOR THERAPEUTIC DRUG MONITORIN 02/07/2016 VIKTORIA QUINTANILLA, FREDDIE Traore Ot 707.15 ULCER OF OTHER PART OF FOOT 02/07/2016 ABIODUN SOLANO DO Ot V58.62 ENCOUNT FOR LONG-TERM(CURRENT) USE OF AN 02/07/2016 ABIODUN SOLANO DO Ot V58.83 ENCOUNTER FOR THERAPEUTIC DRUG MONITORIN 02/07/2016 ABIODUN SOLANO DO Ot V58.81 FIT/ADJ VASCULAR CATHETER 02/07/2016 FREDDIE BLUM MD Ot 709.8 SKIN DISORDERS NEC 02/07/2016 FREDDIE BLUM MD Ot V72.63 PRE-PROCEDURAL LABORATORY EXAMINATION 02/07/2016 FREDDIE BLUM MD Ot V74.8 SCREEN-BACTERIAL DIS NEC 02/07/2016 FREDDIE BLUM MD Ot 892.0 OPEN WOUND OF FOOT 02/07/2016 FREDDIE BLUM MD Ot E000.8 OTHER EXTERNAL CAUSE STATUS 02/07/2016 FREDDIE BLUM MD Ot E928.9 ACCIDENT NOS 02/07/2016 FREDDIE BLUM MD Ot V72.84 EXAM PRE-OPERATIVE NOS 02/07/2016 FREDDIE BLUM MD Ot 892.0 OPEN WOUND OF FOOT 02/07/2016 FREDDIE BLUM MD Ot E000.8 OTHER EXTERNAL CAUSE STATUS 02/07/2016 FREDDIE BLUM MD Ot E928.9 ACCIDENT NOS 02/07/2016 EDITH RUTH MD Ot 707.15 ULCER OF OTHER PART OF FOOT 02/07/2016 EDITH RUTH MD Ot V49.72 OTHER TOE(S) AMPUTATION STATUS 02/07/2016 EDITH RUTH MD Ot 250.80 DIAB W OTH SPEC MANIFEST, TYPE II OR UNS 02/07/2016 EDITH RUTH MD Ot 707.15 ULCER OF OTHER PART OF FOOT 02/07/2016 EDITH RUTH MD Ot 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 02/07/2016 FREDDIE BLUM MD Ot 459.81 VENOUS INSUFFICIENCY NOS 02/07/2016 FREDDIE BLUM MD Ot V72.84 EXAM PRE-OPERATIVE NOS 02/07/2016 FREDDIE BLUM MD Ot 707.15 ULCER OF OTHER PART OF FOOT 02/07/2016 JE SOLANO DOI Ot 244.9 HYPOTHYROIDISM NOS 02/07/2016 JE SOLANO DOI Ot 250.00 DIAB CONRADO WO COMPL, TYPE II OR UNSPEC TY 02/07/2016 XIOMARA READ ABIODUN Ot 272.1 PURE HYPERGLYCERIDEMIA 02/07/2016 XIOMARA READ ABIODUN Ot 280.8 IRON DEFIC ANEMIA NEC 02/07/2016 XIOMARA READ ABIODUN Ot 401.1 BENIGN HYPERTENSION 02/07/2016 XIOMARA READ ABIODUN Ot 414.00 CORON ATHEROSCLER NOS TYPE VESSEL, NATIV 02/07/2016 XIOMARA READ ABIODUN Ot 593.9 RENAL URETERAL DIS NOS 02/07/2016 XIOMARA READ ABIODUN Ot 730.07 AC OSTEOMYELITIS-ANKLE 02/07/2016 XIOMARA READ ABIODUN Ot V45.81 AORTOCORONARY BYPASS 02/07/2016 JE SOLANO DOI Ot V58.69 OTH MED,LT,CURRENT USE 02/07/2016 VIKTORIA QUINTANILLA, FREDDIE Traore Ot 709.8 SKIN DISORDERS NEC 02/07/2016 FREDDIE BLUM MD Ot V72.84 EXAM PRE-OPERATIVE NOS 02/07/2016 MIKHAIL CARBAJAL MD Ot E11.621 TYPE 2 DIABETES MELLITUS WITH FOOT ULCER 02/07/2016 MIKHAIL CARBAJAL MD Ot L97.422 NON-PRS CHR ULCER OF LEFT HEEL AND MIDFO 02/07/2016 MIKHAIL CARBAJAL MD Ot E11.621 TYPE 2 DIABETES MELLITUS WITH FOOT ULCER 02/07/2016 MIKHAIL CARBAJAL MD Ot L97.422 NON-PRS CHR ULCER OF LEFT HEEL AND MIDFO 02/07/2016 PATRIA DPKIARRA Lee Ot E11.621 TYPE 2 DIABETES MELLITUS WITH FOOT ULCER 02/07/2016 KIARRA ESPAÑA DPM Ot L97.329 NON-PRESSURE CHRONIC ULCER OF LEFT ANKLE 02/07/2016 KIARRA ESPAÑA DPM Ot Z01.818 ENCOUNTER FOR OTHER PREPROCEDURAL EXAMIN 02/07/2016 MIKHAIL CARBAJAL MD Ot E11.621 TYPE 2 DIABETES MELLITUS WITH FOOT ULCER 02/07/2016 MIKHAIL CARBAJAL MD Ot L97.422 NON-PRS CHR ULCER OF LEFT HEEL AND MIDFO 02/07/2016 JOE RON DC Ot M25.551 PAIN IN RIGHT HIP 02/07/2016 JOE RON DC Ot M54.5 LOW BACK PAIN 02/07/2016 MIKHAIL CARBAJAL MD Ot E11.621 TYPE 2 DIABETES MELLITUS WITH FOOT ULCER 02/07/2016 MIKHAIL CARBAJAL MD Ot L97.422 NON-PRS CHR ULCER OF LEFT HEEL AND MIDFO 02/07/2016 MIKHAIL CARBAJAL MD Ot E11.621 TYPE 2 DIABETES MELLITUS WITH FOOT ULCER 02/07/2016 MIKHAIL CARBAJAL MD Ot L97.422 NON-PRS CHR ULCER OF LEFT HEEL AND MIDFO 02/07/2016 SOLANO DO, ABIODUN Ot I87.2 VENOUS INSUFFICIENCY (CHRONIC) (PERIPHER 02/07/2016 SOLANO DO, ABIODUN Ot D50.8 OTHER IRON DEFICIENCY ANEMIAS 02/07/2016 SOLANO DO, ABIODUN Ot E03.9 HYPOTHYROIDISM, UNSPECIFIED 02/07/2016 SOLANO DO, ABIODUN Ot E11.65 TYPE 2 DIABETES MELLITUS WITH HYPERGLYCE 02/07/2016 SOLANO DO, ABIODUN Ot E78.1 PURE HYPERGLYCERIDEMIA 02/07/2016 SOLANO DO, ABIODUN Ot R80.8 OTHER PROTEINURIA 02/07/2016 SOLANO DO, ABIODUN Ot Z00.00 ENCNTR FOR GENERAL ADULT MEDICAL EXAM W/ 02/07/2016 SOLANO DO, ABIODUN Ot D50.8 OTHER IRON DEFICIENCY ANEMIAS 02/07/2016 SOLANO DO, ABIODUN Ot E03.9 HYPOTHYROIDISM, UNSPECIFIED 02/07/2016 SOLANO DO, ABIODUN Ot E11.65 TYPE 2 DIABETES MELLITUS WITH HYPERGLYCE 02/07/2016 SOLANO DO, ABIODUN Ot E78.1 PURE HYPERGLYCERIDEMIA 02/07/2016 SOLANO DO, ABIODUN Ot R80.8 OTHER PROTEINURIA 02/07/2016 SOLANO DO, ABIODUN Ot Z00.00 ENCNTR FOR GENERAL ADULT MEDICAL EXAM W/ 02/23/2016 SOLANO DO, ABIODUN Ot I87.2 VENOUS INSUFFICIENCY (CHRONIC) (PERIPHER 02/24/2016 SOLANO DO, ABIODUN Ot I87.2 VENOUS INSUFFICIENCY (CHRONIC) (PERIPHER 02/24/2016 SOLANO DO, ABIODUN Ot I87.2 VENOUS INSUFFICIENCY (CHRONIC) (PERIPHER 02/27/2016 SOLANO DO, ABIODUN Ot I87.2 VENOUS INSUFFICIENCY (CHRONIC) (PERIPHER 02/28/2016 SOLANO DO, ABIODUN Ot D50.8 OTHER IRON DEFICIENCY ANEMIAS 02/28/2016 SOLANO DO, ABIODUN Ot E03.9 HYPOTHYROIDISM, UNSPECIFIED 02/28/2016 SOLANO DO, ABIODUN Ot E11.65 TYPE 2 DIABETES MELLITUS WITH HYPERGLYCE 02/28/2016 ABIODUN SOLANO DO Ot E78.1 PURE HYPERGLYCERIDEMIA 02/28/2016 ABIODUN SOLANO DO Ot R80.8 OTHER PROTEINURIA 02/28/2016 ABIODUN SOLANO DO Ot Z00.00 ENCNTR FOR GENERAL ADULT MEDICAL EXAM W/ 03/27/2016 ABIODUN SOLANO DO Ot I87.2 VENOUS INSUFFICIENCY (CHRONIC) (PERIPHER 03/27/2016 ABIODUN SOLANO DO Ot Z45.2 ENCOUNTER FOR ADJUSTMENT AND MANAGEMENT 04/25/2016 ABIODUN SOLANO DO Ot V58.62 ENCOUNT FOR LONG-TERM(CURRENT) USE OF AN 04/25/2016 ABIODUN SOLANO DO Ot V58.83 ENCOUNTER FOR THERAPEUTIC DRUG MONITORIN 04/27/2016 ABIODUN SOLANO DO Ot I87.2 VENOUS INSUFFICIENCY (CHRONIC) (PERIPHER 04/27/2016 ABIODUN SOLANO DO Ot Z45.2 ENCOUNTER FOR ADJUSTMENT AND MANAGEMENT 05/15/2016 ABIODUN SOLANO DO Ot I87.2 VENOUS INSUFFICIENCY (CHRONIC) (PERIPHER 05/15/2016 ABIODUN SOLANO DO Ot Z45.2 ENCOUNTER FOR ADJUSTMENT AND MANAGEMENT 05/17/2016 MIKHAIL CARBAJAL MD Ot E11.621 TYPE 2 DIABETES MELLITUS WITH FOOT ULCER 05/17/2016 MIKHAIL CARBAJAL MD Ot I70.235 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 05/17/2016 MIKHAIL CARBAJAL MD Ot L97.512 NON-PRS CHRONIC ULCER OTH PRT RIGHT FOOT 05/18/2016 MIKHAIL CARBAJAL MD Ot E11.621 TYPE 2 DIABETES MELLITUS WITH FOOT ULCER 05/18/2016 MIKHAIL CARBAJAL MD Ot I70.235 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 05/18/2016 MIKHAIL CARBAJAL MD Ot L97.512 NON-PRS CHRONIC ULCER OTH PRT RIGHT FOOT 05/22/2016 Ot 250.00 DIAB CONRADO WO COMPL, TYPE II OR UNSPEC TY 05/22/2016 Ot 729.5 PAIN IN LIMB 05/22/2016 Ot 414.00 CORON ATHEROSCLER NOS TYPE VESSEL, NATIV 05/22/2016 Ot 433.10 CAROTID ARTERY OCCLUSION W O CEREBRAL IN 05/22/2016 Ot 433.30 MULT BILTRAL ARTERY OCCLUSION WO CEREBRA 05/22/2016 Ot 780.2 SYNCOPE AND COLLAPSE 05/22/2016 Ot 414.00 CORON ATHEROSCLER NOS TYPE VESSEL, NATIV 05/22/2016 Ot 780.2 SYNCOPE AND COLLAPSE 05/22/2016 SHAYNA MCKAY Ot 278.00 OBESITY, NOS 05/22/2016 SHAYNA MCKAY Ot 401.9 HYPERTENSION NOS 05/22/2016 SHAYNA MCKAY Ot 414.00 CORON ATHEROSCLER NOS TYPE VESSEL, NATIV 05/22/2016 PHAN PAZ MD Ot 414.9 CHR ISCHEMIC HRT DIS NOS 05/22/2016 PHAN PAZ MD Ot 585.9 CHRONIC KIDNEY DISEASE, UNSPECIFIED 05/22/2016 PHAN PAZ MD Ot V72.81 RFNI-AZR-CUESOTMNU CARDIOVASCULAR 05/22/2016 VIKTORIA QUINTANILLA, FREDDIE Traore Ot 440.20 ATHEROSCLEROSIS [place] ARTERIES EXTREMIT 05/22/2016 FREDDIE BLUM MD Ot 729.5 PAIN IN LIMB 05/22/2016 FREDDIE BLUM MD Ot V64.1 NO PROC/CONTRAINDICATION 05/22/2016 VIKTORIA QUINTANILLA, FREDDIE Traore Ot 790.99 BLOOD EXAM - OTH NONSPECIFIC FINDINGS 05/22/2016 Ot V58.62 ENCOUNT FOR LONG-TERM(CURRENT) USE OF AN 05/22/2016 Ot V58.83 ENCOUNTER FOR THERAPEUTIC DRUG MONITORIN 05/22/2016 Ot V58.62 ENCOUNT FOR LONG-TERM(CURRENT) USE OF AN 05/22/2016 Ot V58.83 ENCOUNTER FOR THERAPEUTIC DRUG MONITORIN 05/22/2016 Ot V58.62 ENCOUNT FOR LONG-TERM(CURRENT) USE OF AN 05/22/2016 Ot V58.83 ENCOUNTER FOR THERAPEUTIC DRUG MONITORIN 05/22/2016 SOLANO DO, ABIODUN Ot V58.62 ENCOUNT FOR LONG-TERM(CURRENT) USE OF AN 05/22/2016 SOLANO DO, ABIODUN Ot V58.83 ENCOUNTER FOR THERAPEUTIC DRUG MONITORIN 05/22/2016 SOLANO DO, ABIODUN Ot V58.62 ENCOUNT FOR LONG-TERM(CURRENT) USE OF AN 05/22/2016 SOLANO DO, ABIODUN Ot V58.83 ENCOUNTER FOR THERAPEUTIC DRUG MONITORIN 05/22/2016 SOLANO DO, ABIODUN Ot V58.69 OTH MED,LT,CURRENT USE 05/22/2016 SOLANO DO, BAIODUN Ot V58.83 ENCOUNTER FOR THERAPEUTIC DRUG MONITORIN 05/22/2016 SOLANO DO, ABIODUN Ot V58.62 ENCOUNT FOR LONG-TERM(CURRENT) USE OF AN 05/22/2016 SOLANO DO, ABIODUN Ot V58.83 ENCOUNTER FOR THERAPEUTIC DRUG MONITORIN 05/22/2016 SOLANO DO, ABIODUN Ot V58.62 ENCOUNT FOR LONG-TERM(CURRENT) USE OF AN 05/22/2016 SOLANO DO, ABIODUN Ot V58.83 ENCOUNTER FOR THERAPEUTIC DRUG MONITORIN 05/22/2016 SOLANO DO, ABIODUN Ot 730.27 OSTEOMYELITIS NOS-ANKLE 05/22/2016 SOLANO DO, ABIODUN Ot V58.62 ENCOUNT FOR LONG-TERM(CURRENT) USE OF AN 05/22/2016 SOLANO DO, ABIODUN Ot V58.69 OTH MED,LT,CURRENT USE 05/22/2016 SOLANO DO, ABIODUN Ot V58.83 ENCOUNTER FOR THERAPEUTIC DRUG MONITORIN 05/22/2016 VIKTORIA QUINTANILLA, FREDDIE Traore Ot 707.15 ULCER OF OTHER PART OF FOOT 05/22/2016 SOLANO DO, ABIODUN Ot V58.62 ENCOUNT FOR LONG-TERM(CURRENT) USE OF AN 05/22/2016 SOLANO DO, ABIODUN Ot V58.83 ENCOUNTER FOR THERAPEUTIC DRUG MONITORIN 05/22/2016 SOLANO DO, ABIODUN Ot V58.81 FIT/ADJ VASCULAR CATHETER 05/22/2016 VIKTORIA QUINTANILLA, FREDDIE Traore Ot 709.8 SKIN DISORDERS NEC 05/22/2016 FREDDIE BLUM MD Ot V72.63 PRE-PROCEDURAL LABORATORY EXAMINATION 05/22/2016 FREDDIE BLUM MD Ot V74.8 SCREEN-BACTERIAL DIS NEC 05/22/2016 FREDDIE BLUM MD Ot 892.0 OPEN WOUND OF FOOT 05/22/2016 FREDDIE BLUM MD Ot E000.8 OTHER EXTERNAL CAUSE STATUS 05/22/2016 FREDDIE BLUM MD Ot E928.9 ACCIDENT NOS 05/22/2016 FREDDIE BLUM MD Ot V72.84 EXAM PRE-OPERATIVE NOS 05/22/2016 FREDDIE BLUM MD Ot 892.0 OPEN WOUND OF FOOT 05/22/2016 FREDDIE BLUM MD Ot E000.8 OTHER EXTERNAL CAUSE STATUS 05/22/2016 FREDDIE BLUM MD Ot E928.9 ACCIDENT NOS 05/22/2016 EDITH RUTH MD Ot 707.15 ULCER OF OTHER PART OF FOOT 05/22/2016 EDITH RUTH MD Ot V49.72 OTHER TOE(S) AMPUTATION STATUS 05/22/2016 EDITH RUTH MD Ot 250.80 DIAB W OTH SPEC MANIFEST, TYPE II OR UNS 05/22/2016 EDITH RUTH MD Ot 707.15 ULCER OF OTHER PART OF FOOT 05/22/2016 EDITH RUTH MD Ot 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 05/22/2016 FREDDIE BLUM MD Ot 459.81 VENOUS INSUFFICIENCY NOS 05/22/2016 FREDDIE BLUM MD Ot V72.84 EXAM PRE-OPERATIVE NOS 05/22/2016 FREDDIE BLUM MD Ot 707.15 ULCER OF OTHER PART OF FOOT 05/22/2016 ABIODUN SOLANO DO Ot 244.9 HYPOTHYROIDISM NOS 05/22/2016 ABIODUN SOLANO DO Ot 250.00 DIAB CONRADO WO COMPL, TYPE II OR UNSPEC TY 05/22/2016 ABIODUN SOLANO DO Ot 272.1 PURE HYPERGLYCERIDEMIA 05/22/2016 JE SOLANO DOI Ot 280.8 IRON DEFIC ANEMIA NEC 05/22/2016 ABIODUN SOLANO DO Ot 401.1 BENIGN HYPERTENSION 05/22/2016 ABIODUN SOLANO DO Ot 414.00 CORON ATHEROSCLER NOS TYPE VESSEL, NATIV 05/22/2016 ABIODUN SOLANO DO Ot 593.9 RENAL URETERAL DIS NOS 05/22/2016 JE SOLANO DOI Ot 730.07 AC OSTEOMYELITIS-ANKLE 05/22/2016 ABIODUN SOLANO DO Ot V45.81 AORTOCORONARY BYPASS 05/22/2016 ABIODUN SOLANO DO Ot V58.69 OT MED,LT,CURRENT USE 05/22/2016 FREDDIE BLUM MD Ot 709.8 SKIN DISORDERS NEC 05/22/2016 FREDDIE BLUM MD Ot V72.84 EXAM PRE-OPERATIVE NOS 05/22/2016 MIKHAIL CARBAJAL MD Ot E11.621 TYPE 2 DIABETES MELLITUS WITH FOOT ULCER 05/22/2016 MIKHAIL CARBAJAL MD Ot L97.422 NON-PRS CHR ULCER OF LEFT HEEL AND MIDFO 05/22/2016 MIKHAIL CARBAJAL MD Ot E11.621 TYPE 2 DIABETES MELLITUS WITH FOOT ULCER 05/22/2016 MIKHAIL CARBAJAL MD, Ot L97.422 NON-PRS CHR ULCER OF LEFT HEEL AND MIDFO 05/22/2016 KIARRA ESPAÑA DPM Ot E11.621 TYPE 2 DIABETES MELLITUS WITH FOOT ULCER 05/22/2016 KIARRA ESPAÑA DPM Ot L97.329 NON-PRESSURE CHRONIC ULCER OF LEFT ANKLE 05/22/2016 KIARRA ESPAÑA DPM Ot Z01.818 ENCOUNTER FOR OTHER PREPROCEDURAL EXAMIN 05/22/2016 MIKHAIL CARBAJAL MD, Ot E11.621 TYPE 2 DIABETES MELLITUS WITH FOOT ULCER 05/22/2016 MIKHAIL CARBAJAL MD, Ot L97.422 NON-PRS CHR ULCER OF LEFT HEEL AND MIDFO 05/22/2016 JOE RON DC Ot M25.551 PAIN IN RIGHT HIP 05/22/2016 JOE RON DC Ot M54.5 LOW BACK PAIN 05/22/2016 MIKHAIL CARBAJAL MD, Ot E11.621 TYPE 2 DIABETES MELLITUS WITH FOOT ULCER 05/22/2016 MIKHAIL CARBAJAL MD, Ot L97.422 NON-PRS CHR ULCER OF LEFT HEEL AND MIDFO 05/22/2016 MIKHAIL CARBAJAL MD, Ot E11.621 TYPE 2 DIABETES MELLITUS WITH FOOT ULCER 05/22/2016 MIKHAIL CARBAJAL MD, Ot L97.422 NON-PRS CHR ULCER OF LEFT HEEL AND MIDFO 05/22/2016 XIOMARA DOJEI Ot D50.8 OTHER IRON DEFICIENCY ANEMIAS 05/22/2016 XIOMARA READ ABIODUN Ot E03.9 HYPOTHYROIDISM, UNSPECIFIED 05/22/2016 XIOMARA READ ABIODUN Ot E11.65 TYPE 2 DIABETES MELLITUS WITH HYPERGLYCE 05/22/2016 XIOMARA READ ABIODUN Ot E78.1 PURE HYPERGLYCERIDEMIA 05/22/2016 XIOMARA READ ABIODUN Ot R80.8 OTHER PROTEINURIA 05/22/2016 XIOMARA DO ABIODUN Ot Z00.00 ENCNTR FOR GENERAL ADULT MEDICAL EXAM W/ 05/22/2016 JE SOLANO DOI Ot I87.2 VENOUS INSUFFICIENCY (CHRONIC) (PERIPHER 05/22/2016 JE SOLANO DOI Ot Z45.2 ENCOUNTER FOR ADJUSTMENT AND MANAGEMENT 05/22/2016 MIKHAIL CARBAJAL MD, Ot E11.621 TYPE 2 DIABETES MELLITUS WITH FOOT ULCER 05/22/2016 MIKHAIL CARBAJAL MD Ot I70.235 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 05/22/2016 MIKHAIL CARBAJAL MD Ot L97.512 NON-PRS CHRONIC ULCER OTH PRT RIGHT FOOT 05/22/2016 MIKHAIL CARBAJAL MD Ot E11.621 TYPE 2 DIABETES MELLITUS WITH FOOT ULCER 05/22/2016 MIKHAIL CARBAJAL MD Ot I70.235 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 05/22/2016 MIKHAIL CARBAJAL MD Ot L97.512 NON-PRS CHRONIC ULCER OTH PRT RIGHT FOOT 05/22/2016 Ot V58.62 ENCOUNT FOR LONG-TERM(CURRENT) USE OF AN 05/22/2016 Ot V58.83 ENCOUNTER FOR THERAPEUTIC DRUG MONITORIN 05/22/2016 Ot V58.62 ENCOUNT FOR LONG-TERM(CURRENT) USE OF AN 05/22/2016 Ot V58.83 ENCOUNTER FOR THERAPEUTIC DRUG MONITORIN 05/22/2016 XIOMARA DO ABIODUN Ot V58.69 OTH MED,LT,CURRENT USE 05/22/2016 SOLANO DO, ABIODUN Ot V58.83 ENCOUNTER FOR THERAPEUTIC DRUG MONITORIN 05/23/2016 FREDDIE BLUM MD Ot 707.15 ULCER OF OTHER PART OF FOOT 05/24/2016 SOLANO DO, ABIODUN Ot I87.2 VENOUS INSUFFICIENCY (CHRONIC) (PERIPHER 05/24/2016 SOLANO DO, ABIODUN Ot Z45.2 ENCOUNTER FOR ADJUSTMENT AND MANAGEMENT 05/24/2016 MIKHAIL CARBAJAL MD Ot E11.621 TYPE 2 DIABETES MELLITUS WITH FOOT ULCER 05/24/2016 MIKHAIL CARBAJAL MD Ot I70.235 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 05/24/2016 MIKHAIL CARBAJAL MD Ot L97.512 NON-PRS CHRONIC ULCER OTH PRT RIGHT FOOT 05/25/2016 SOLANO DO, ABIODUN Ot I87.2 VENOUS INSUFFICIENCY (CHRONIC) (PERIPHER 05/25/2016 SOLANO DO, ABIODUN Ot Z45.2 ENCOUNTER FOR ADJUSTMENT AND MANAGEMENT 05/25/2016 SOLANO DO, ABIODUN Ot I87.2 VENOUS INSUFFICIENCY (CHRONIC) (PERIPHER 05/25/2016 SOLANO DO, ABIODUN Ot Z45.2 ENCOUNTER FOR ADJUSTMENT AND MANAGEMENT 05/25/2016 SOLANO DO, ABIODUN Ot I87.2 VENOUS INSUFFICIENCY (CHRONIC) (PERIPHER 05/25/2016 SOLANO DO, ABIODUN Ot Z45.2 ENCOUNTER FOR ADJUSTMENT AND MANAGEMENT 05/25/2016 SOLANO DO, ABIODUN Ot I87.2 VENOUS INSUFFICIENCY (CHRONIC) (PERIPHER 05/25/2016 SOLANO DO ABIODUN Ot Z45.2 ENCOUNTER FOR ADJUSTMENT AND MANAGEMENT 05/25/2016 SOLANO DO ABIODUN Ot I87.2 VENOUS INSUFFICIENCY (CHRONIC) (PERIPHER 05/25/2016 SOLANO DO ABIODUN Ot Z45.2 ENCOUNTER FOR ADJUSTMENT AND MANAGEMENT 05/29/2016 XIOMARA DO ABIODUN Ot D50.8 OTHER IRON DEFICIENCY ANEMIAS 05/29/2016 XIOMARA DO ABIODUN Ot E03.9 HYPOTHYROIDISM, UNSPECIFIED 05/29/2016 XIOMARA DO ABIODUN Ot E11.65 TYPE 2 DIABETES MELLITUS WITH HYPERGLYCE 05/29/2016 XIOMARA DO ABIODUN Ot E78.00 PURE HYPERCHOLESTEROLEMIA, UNSPECIFIED 05/29/2016 XIOMARA DO ABIODUN Ot E78.1 PURE HYPERGLYCERIDEMIA 05/29/2016 JE SOLANO DOI Ot Z00.00 ENCNTR FOR GENERAL ADULT MEDICAL EXAM W05/30/2016 XIOMARA READ ABIODUN Ot I87.2 VENOUS INSUFFICIENCY (CHRONIC) (PERIPHER 05/30/2016 XIOMARA READ ABIODUN Ot Z45.2 ENCOUNTER FOR ADJUSTMENT AND MANAGEMENT 05/30/2016 MIKHAIL CARBAJAL MD Ot E11.621 TYPE 2 DIABETES MELLITUS WITH FOOT ULCER 05/30/2016 MIKHAIL CARBAJAL MD Ot I70.235 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 05/30/2016 MIKHAIL CARBAJAL MD Ot L97.512 NON-PRS CHRONIC ULCER OTH PRT RIGHT FOOT 05/31/2016 JORDEN GREER MD Ot 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 W DIABETIC GALLERY MANAGER 05/31/2016 JORDEN GREER MD Ot E11.621 TYPE 2 DIABETES MELLITUS WITH FOOT ULCER 05/31/2016 JORDEN GREER MD Ot I12.9 HYPERTENSIVE CHRONIC KIDNEY DISEASE W ST 05/31/2016 JORDEN GREER MD Ot I25.10 ATHSCL HEART DISEASE OF [place] CORONARY 05/31/2016 JORDEN GREER MD Ot I70.235 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 05/31/2016 JORDEN GREER MD Ot L97.519 NON-PRS CHRONIC ULCER OTH PRT RIGHT FOOT 05/31/2016 JORDEN GREER MD Ot N18.9 CHRONIC KIDNEY DISEASE, UNSPECIFIED 05/31/2016 JORDEN GREER MD Ot Z72.0 TOBACCO USE 05/31/2016 JORDEN GREER MD, Ot Z79.4 [facility] (CURRENT) USE OF INSULIN 05/31/2016 JORDEN GREER MD Ot Z79.899 OTHER [facility] (CURRENT) DRUG THERAPY 05/31/2016 JORDEN GREER MD, Ot Z95.1 PRESENCE OF AORTOCORONARY BYPASS GRAFT 05/31/2016 JORDEN GREER MD, Ot Z95.5 PRESENCE OF CORONARY ANGIOPLASTY IMPLANT 06/06/2016 COREEN CORMIER STRICKLER ATTENDANT Ot E11.621 TYPE 2 DIABETES MELLITUS WITH FOOT ULCER 06/06/2016 COREEN CORMIER STRICKLER ATTENDANT Ot I70.235 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 06/06/2016 COREEN CORMIER STRICKLER ATTENDANT Ot L97.512 NON-PRS CHRONIC ULCER OTH PRT RIGHT FOOT 06/07/2016 BLANCHO DPM, KIARRA Lane Ot E11.52 TYPE 2 DIABETES W DIABETIC PERIPHERAL AN 06/07/2016 BLANCHO DPM, KIARRA Lane Ot I96 [place]GR[place], NOT ELSEWHERE CLASSIFIED 06/07/2016 BLANCHO DPM, KIARRA Lane Ot M21.80 OTHER SPECIFIED ACQUIRED DEFORMITIES OF 06/07/2016 BLANCHO DPM, KIARRA Lane Ot Z01.818 ENCOUNTER FOR OTHER PREPROCEDURAL EXAMIN 06/07/2016 BLANCHO DPM, KIARRA Lane Ot Z11.2 ENCOUNTER FOR SCREENING FOR OTHER BACTER 06/07/2016 BLANCHO DPM, KIARRA Lane Ot E11.52 TYPE 2 DIABETES W DIABETIC PERIPHERAL AN 06/07/2016 BLANCHO DPM, KIARRA Lane Ot I96 [place], NOT ELSEWHERE CLASSIFIED 06/07/2016 BLANCHO DPM, KIARRA Lane Ot M21.80 OTHER SPECIFIED ACQUIRED DEFORMITIES OF 06/07/2016 BLANCHO DPM, KIARRA Lane Ot Z01.818 ENCOUNTER FOR OTHER PREPROCEDURAL EXAMIN 06/07/2016 BLANCHO DPM, KIARRA Lane Ot Z11.2 ENCOUNTER FOR SCREENING FOR OTHER BACTER 06/07/2016 BLANCHO DPM, KIARRA Lane Ot E11.52 TYPE 2 DIABETES W DIABETIC PERIPHERAL AN 06/07/2016 BLANCHO DPM, KIARRA Lane Ot I96 [place], NOT ELSEWHERE CLASSIFIED 06/07/2016 BLANCHO DPM, KIARRA Lane Ot M21.80 OTHER SPECIFIED ACQUIRED DEFORMITIES OF 06/07/2016 BLANCHO DPM, KIARRA Lane Ot Z01.818 ENCOUNTER FOR OTHER PREPROCEDURAL EXAMIN 06/07/2016 BLANCHO DPJesus, KIARRA Lane Ot Z11.2 ENCOUNTER FOR SCREENING FOR OTHER BACTER 06/08/2016 MIKHAIL CARBAJAL MD Ot E11.621 TYPE 2 DIABETES MELLITUS WITH FOOT ULCER 06/08/2016 MIKHAIL CARBAJAL MD Ot I70.235 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 06/08/2016 MIKHAIL CARBAJAL MD Ot L97.512 NON-PRS CHRONIC ULCER OTH PRT RIGHT FOOT 06/09/2016 BLANCHO DPM, KIARRA Lane Ot D63.8 ANEMIA IN OTHER CHRONIC DISEASES CLASSIF 06/09/2016 MERINCHO DPJesus, KIARRA Lane Ot E03.9 HYPOTHYROIDISM, UNSPECIFIED 06/09/2016 BLANCHO DPM, KIARRA Lane Ot 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 W DIABETIC GALLERY MANAGER 06/09/2016 BLANCHO DPM, KIARRA Lane Ot I12.9 HYPERTENSIVE CHRONIC KIDNEY DISEASE W ST 06/09/2016 BLANCHO DPM, KIARRA Lane Ot I25.10 ATHSCL HEART DISEASE OF [place] CORONARY 06/09/2016 BLANCHO DPM, KIARRA Lane Ot I96 GANGRENE, NOT ELSEWHERE CLASSIFIED 06/09/2016 MERINCHO DPJesus, KIARRA Lane Ot K21.9 GASTRO-ESOPHAGEAL REFLUX DISEASE WITHOUT 06/09/2016 BLANCHO DPM, KIARRA Lane Ot M21.80 OTHER SPECIFIED ACQUIRED DEFORMITIES OF 06/09/2016 MERINCHO DPM, KIARRA Lane Ot N18.4 CHRONIC KIDNEY DISEASE, STAGE 4 (SEVERE) 06/09/2016 BLANCHO DPM, KIARRA Lane Ot Z79.4 [facility] (CURRENT) USE OF INSULIN 06/11/2016 COREEN CORMIER APRN Ot E11.621 TYPE 2 DIABETES MELLITUS WITH FOOT ULCER 06/11/2016 COREEN CORMIER APRN Ot I70.235 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 06/11/2016 COREEN CORMIER APRN Ot L97.512 NON-PRS CHRONIC ULCER OTH PRT RIGHT FOOT 06/14/2016 MIKHAIL CARBAJAL MD Ot E11.621 TYPE 2 DIABETES MELLITUS WITH FOOT ULCER 06/14/2016 MIKHAIL CARBAJAL MD Ot I70.235 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 06/14/2016 MIKHAIL CARBAJAL MD Ot L97.512 NON-PRS CHRONIC ULCER OTH PRT RIGHT FOOT 06/15/2016 JORDEN GREER MD Ot 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 W DIABETIC GALLERY MANAGER 06/15/2016 JORDEN GREER MD Ot E11.621 TYPE 2 DIABETES MELLITUS WITH FOOT ULCER 06/15/2016 JORDEN GREER MD Ot I12.9 HYPERTENSIVE CHRONIC KIDNEY DISEASE W ST 06/15/2016 JORDEN GREER MD Ot I25.10 ATHSCL HEART DISEASE OF [place] CORONARY 06/15/2016 JORDEN GREER MD Ot I70.235 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 06/15/2016 JORDEN GREER MD, Ot L97.519 NON-PRS CHRONIC ULCER OTH PRT RIGHT FOOT 06/15/2016 JORDEN GREER MD Ot N18.9 CHRONIC KIDNEY DISEASE, UNSPECIFIED 06/15/2016 JORDEN GREER MD Ot Z72.0 TOBACCO USE 06/15/2016 JORDEN GREER MD Ot Z79.4 [facility] (CURRENT) USE OF INSULIN 06/15/2016 JORDEN GREER MD, Ot Z79.899 OTHER [facility] (CURRENT) DRUG THERAPY 06/15/2016 JORDEN GREER MD, Ot Z95.1 PRESENCE OF AORTOCORONARY BYPASS GRAFT 06/15/2016 JORDEN GREER MD Ot Z95.5 PRESENCE OF CORONARY ANGIOPLASTY IMPLANT 06/20/2016 MIKHAIL CARBAJAL MD Ot E11.621 TYPE 2 DIABETES MELLITUS WITH FOOT ULCER 06/20/2016 MIKHAIL CARBAJAL MD Ot I70.235 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 06/20/2016 MIKHAIL CARBAJAL MD Ot L97.512 NON-PRS CHRONIC ULCER OTH PRT RIGHT FOOT 06/21/2016 JE SOLANO DOI Ot D50.8 OTHER IRON DEFICIENCY ANEMIAS 06/21/2016 JE SOLANO DOI Ot E03.9 HYPOTHYROIDISM, UNSPECIFIED 06/21/2016 XIOMARA READ ABIODUN Ot E11.65 TYPE 2 DIABETES MELLITUS WITH HYPERGLYCE 06/21/2016 XIOMARA READ ABIODUN Ot E78.00 PURE HYPERCHOLESTEROLEMIA, UNSPECIFIED 06/21/2016 XIOMARA READ ABIODUN Ot E78.1 PURE HYPERGLYCERIDEMIA 06/21/2016 ABIODUN SOLANO DO Ot Z00.00 ENCNTR FOR GENERAL ADULT MEDICAL EXAM W/ 06/22/2016 ABIODUN SOLANO DO Ot I87.2 VENOUS INSUFFICIENCY (CHRONIC) (PERIPHER 06/22/2016 ABIODUN SOLANO DO Ot Z45.2 ENCOUNTER FOR ADJUSTMENT AND MANAGEMENT 06/23/2016 ABIODUN SOLANO DO Ot V58.62 ENCOUNT FOR LONG-TERM(CURRENT) USE OF AN 06/23/2016 ABIODUN SOLANO DO Ot V58.83 ENCOUNTER FOR THERAPEUTIC DRUG MONITORIN 06/24/2016 JACHO KIARRA STUART Ot D63.8 ANEMIA IN OTHER CHRONIC DISEASES CLASSIF 06/24/2016 PATRIA DPKIARRA Lee Ot E03.9 HYPOTHYROIDISM, UNSPECIFIED 06/24/2016 JACHO DPKIARRA Lee Ot 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 W DIABETIC GALLERY MANAGER 06/24/2016 JACHO DPKIARRA Lee Ot I12.9 HYPERTENSIVE CHRONIC KIDNEY DISEASE W ST 06/24/2016 JACHO DPMKIARRA Ot I25.10 ATHSCL HEART DISEASE OF [place] CORONARY 06/24/2016 JACHO DPKIARRA Lee Ot I96 GANGRENE, NOT ELSEWHERE CLASSIFIED 06/24/2016 KIARRA ESPAÑA DPM Ot K21.9 GASTRO-ESOPHAGEAL REFLUX DISEASE WITHOUT 06/24/2016 JACHO KIARRA STUART Ot M21.80 OTHER SPECIFIED ACQUIRED DEFORMITIES OF 06/24/2016 JACHO KIARRA STUART Ot N18.4 CHRONIC KIDNEY DISEASE, STAGE 4 (SEVERE) 06/24/2016 JACHO KIARRA STUART Ot Z79.4 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 06/25/2016 ABIODUN SOLANO DO Ot I87.2 VENOUS INSUFFICIENCY (CHRONIC) (PERIPHER 06/25/2016 ABIODUN SOLANO DO Ot Z45.2 ENCOUNTER FOR ADJUSTMENT AND MANAGEMENT 06/26/2016 COREEN CORMIER APRN Ot E11.621 TYPE 2 DIABETES MELLITUS WITH FOOT ULCER 06/26/2016 COREEN CORMIER APRN Ot I70.235 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 06/26/2016 COREEN CORMIER APRN Ot L97.512 NON-PRS CHRONIC ULCER OTH PRT RIGHT FOOT 06/28/2016 LEIGH ANN FUCHS DO Ot T82.518A BREAKDOWN OF CARDIAC AND VASCULAR DEVICE 06/28/2016 ABIODUN SOLANO DO Ot I87.2 VENOUS INSUFFICIENCY (CHRONIC) (PERIPHER 06/28/2016 ABIODUN SOLANO DO Ot Z45.2 ENCOUNTER FOR ADJUSTMENT AND MANAGEMENT 07/02/2016 ABIODUN SOLANO DO Ot E03.9 HYPOTHYROIDISM, UNSPECIFIED 07/02/2016 ABIODUN SOLANO DO Ot E11.40 TYPE 2 DIABETES MELLITUS WITH DIABETIC N 07/02/2016 ABIODUN SOLANO DO Ot E11.51 TYPE 2 DIABETES W DIABETIC PERIPHERAL AN 07/02/2016 ABIODUN SOLANO DO Ot E11.621 TYPE 2 DIABETES MELLITUS WITH FOOT ULCER 07/02/2016 ABIODUN SOLANO DO Ot E78.00 PURE HYPERCHOLESTEROLEMIA, UNSPECIFIED 07/02/2016 ABIODUN SOLANO DO Ot F17.210 NICOTINE DEPENDENCE, CIGARETTES, UNCOMPL 07/02/2016 ABIODUN SOLANO DO Ot G47.30 SLEEP APNEA, UNSPECIFIED 07/02/2016 ABIODUN SOLANO DO Ot G47.9 SLEEP DISORDER, UNSPECIFIED 07/02/2016 ABIODUN SOLANO DO Ot I12.9 HYPERTENSIVE CHRONIC KIDNEY DISEASE W ST 07/02/2016 ABIODUN SOLANO DO Ot I25.10 ATHSCL HEART DISEASE OF [place] CORONARY 07/02/2016 ABIODUN SOLANO DO Ot I25.2 OLD MYOCARDIAL INFARCTION 07/02/2016 ABIODUN SOLANO DO Ot I65.23 OCCLUSION AND STENOSIS OF BILATERAL [place] 07/02/2016 ABIODUN SOLANO DO Ot K21.9 GASTRO-ESOPHAGEAL REFLUX DISEASE WITHOUT 07/02/2016 ABIODUN SOLANO DO Ot L03.116 CELLULITIS OF LEFT LOWER LIMB 07/02/2016 ABIODUN SOLANO DO Ot M19.91 PRIMARY OSTEOARTHRITIS, UNSPECIFIED SITE 07/02/2016 ABIODUN SOLANO DO Ot M54.9 DORSALGIA, UNSPECIFIED 07/02/2016 ABIODUN SOLANO DO Ot N18.9 CHRONIC KIDNEY DISEASE, UNSPECIFIED 07/02/2016 ABIODUN SOLANO DO Ot T85.618A BREAKDOWN (MECHANICAL) OF INTERNAL PROST 07/02/2016 ABIODUN SOLANO DO Ot Z79.4 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 INSULIN 07/02/2016 ABIODUN SOLANO DO Ot Z89.431 ACQUIRED ABSENCE OF RIGHT FOOT 07/02/2016 JE SOLANO DOI Ot Z91.14 PATIENT'S OTHER NONCOMPLIANCE WITH MEDIC 07/02/2016 ABIODUN SOLANO DO Ot Z95.1 PRESENCE OF AORTOCORONARY BYPASS GRAFT 07/04/2016 ABIODUN SOLANO DO Ot E03.9 HYPOTHYROIDISM, UNSPECIFIED 07/04/2016 XIOMARA READ ABIODUN Ot E11.40 TYPE 2 DIABETES MELLITUS WITH DIABETIC N 07/04/2016 JE SOLANO DOI Ot E11.51 TYPE 2 DIABETES W DIABETIC PERIPHERAL AN 07/04/2016 JE SOLANO DOI Ot E11.621 TYPE 2 DIABETES MELLITUS WITH FOOT ULCER 07/04/2016 XIOMARA READ ABIODUN Ot E78.00 PURE HYPERCHOLESTEROLEMIA, UNSPECIFIED 07/04/2016 XIOMARA READ ABIODUN Ot F17.210 NICOTINE DEPENDENCE, CIGARETTES, UNCOMPL 07/04/2016 XIOMARA READ ABIODUN Ot G47.30 SLEEP APNEA, UNSPECIFIED 07/04/2016 XIOMARA READ ABIODUN Ot G47.9 SLEEP DISORDER, UNSPECIFIED 07/04/2016 XIOMARA READ ABIODUN Ot I12.9 HYPERTENSIVE CHRONIC KIDNEY DISEASE W ST 07/04/2016 XIOMARA READ ABIODUN Ot I25.10 ATHSCL HEART DISEASE OF [place] CORONARY 07/04/2016 XIOMARA READ ABIODUN Ot I25.2 OLD MYOCARDIAL INFARCTION 07/04/2016 XIOMARA READ ABIODUN Ot I65.23 OCCLUSION AND STENOSIS OF BILATERAL [place] 07/04/2016 XIOMARA READ ABIODUN Ot K21.9 GASTRO-ESOPHAGEAL REFLUX DISEASE WITHOUT 07/04/2016 XIOMARA READ ABIODUN Ot L03.116 CELLULITIS OF LEFT LOWER LIMB 07/04/2016 JE SOLANO DOI Ot M19.91 PRIMARY OSTEOARTHRITIS, UNSPECIFIED SITE 07/04/2016 XIOMARA READ ABIODUN Ot M54.9 DORSALGIA, UNSPECIFIED 07/04/2016 XIOMARA READ ABIODUN Ot N18.9 CHRONIC KIDNEY DISEASE, UNSPECIFIED 07/04/2016 XIOMARA READ ABIODUN Ot T85.618A BREAKDOWN (MECHANICAL) OF INTERNAL PROST 07/04/2016 XIOMARA READ ABIODUN Ot Z79.4 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 INSULIN 07/04/2016 JE SOLANO DOI Ot Z89.431 ACQUIRED ABSENCE OF RIGHT FOOT 07/04/2016 JE SOLANO DOI Ot Z91.14 PATIENT'S OTHER NONCOMPLIANCE WITH MEDIC 07/04/2016 XIOMARA READ ABIODUN Ot Z95.1 PRESENCE OF AORTOCORONARY BYPASS GRAFT 07/04/2016 JE SOLANO DOI Ot E03.9 HYPOTHYROIDISM, UNSPECIFIED 07/04/2016 XIOMARA READ ABIODUN Ot 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 W DIABETIC GALLERY MANAGER 07/04/2016 XIOMARA READ ABIODUN Ot E11.40 TYPE 2 DIABETES MELLITUS WITH DIABETIC N 07/04/2016 JE SOLANO DOI Ot E11.51 TYPE 2 DIABETES W DIABETIC PERIPHERAL AN 07/04/2016 XIOMARA READ ABIODUN Ot E11.621 TYPE 2 DIABETES MELLITUS WITH FOOT ULCER 07/04/2016 XIOMARA READ ABIODUN Ot E11.69 TYPE 2 DIABETES MELLITUS WITH OTHER SPEC 07/04/2016 XIOMARA READ ABIODUN Ot E78.00 PURE HYPERCHOLESTEROLEMIA, UNSPECIFIED 07/04/2016 XIOMARA READ ABIODUN Ot F17.210 NICOTINE DEPENDENCE, CIGARETTES, UNCOMPL 07/04/2016 XIOMARA READ ABIODUN Ot G47.30 SLEEP APNEA, UNSPECIFIED 07/04/2016 XIOMARA READ ABIODUN Ot G47.9 SLEEP DISORDER, UNSPECIFIED 07/04/2016 XIOMARA READ ABIODUN Ot I10 ESSENTIAL (PRIMARY) HYPERTENSION 07/04/2016 XIOMARA READ ABIODUN Ot I25.10 ATHSCL HEART DISEASE OF [place] CORONARY 07/04/2016 XIOMARA READ ABIODUN Ot I25.2 OLD MYOCARDIAL INFARCTION 07/04/2016 XIOMARA READ ABIODUN Ot I65.23 OCCLUSION AND STENOSIS OF [place]ILATERAL [place] 07/04/2016 XIOMARA READ ABIODUN Ot I70.0 ATHEROSCLEROSIS OF [place] 07/04/2016 XIOMARA READ ABIODUN Ot I70.235 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 07/04/2016 XIOMARA READ ABIODUN Ot I70.245 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 OF LEFT LEG W C 07/04/2016 XIOMARA READ ABIODUN Ot K21.9 GASTRO-ESOPHAGEAL REFLUX DISEASE WITHOUT 07/04/2016 XIOMARA READ ABIODUN Ot M19.91 PRIMARY OSTEOARTHRITIS, UNSPECIFIED SITE 07/04/2016 XIOMARA READ ABIODUN Ot M54.9 DORSALGIA, UNSPECIFIED 07/04/2016 XIOMARA READ ABIODUN Ot M86.9 OSTEOMYELITIS, UNSPECIFIED 07/04/2016 SOLANO DO, ABIODUN Ot N18.9 CHRONIC KIDNEY DISEASE, UNSPECIFIED 07/04/2016 XIOMARA READ ABIODUN Ot T85.618A BREAKDOWN (MECHANICAL) OF INTERNAL PROST 07/04/2016 XIOMARA READ ABIODUN Ot T87.41 INFECTION OF AMPUTATION STUMP, RIGHT UPP 07/04/2016 XIOMARA READ ABIODUN Ot T87.42 INFECTION OF AMPUTATION STUMP, LEFT UPPE 07/04/2016 XIOMARA READ ABIODUN Ot Z79.4 FDC (CURRENT) USE OF INSULIN 07/04/2016 XIOMARA READ ABIODUN Ot Z89.431 ACQUIRED ABSENCE OF RIGHT FOOT 07/04/2016 XIOMARA READ ABIODUN Ot Z91.14 PATIENT'S OTHER NONCOMPLIANCE WITH MEDIC 07/04/2016 XIOMARA READ ABIODUN Ot Z95.1 PRESENCE OF AORTOCORONARY BYPASS GRAFT 07/04/2016 XIOMARA READ ABIODUN Ot E03.9 HYPOTHYROIDISM, UNSPECIFIED 07/04/2016 XIOMARA READ ABIODUN Ot 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 W DIABETIC GALLERY MANAGER 07/04/2016 XIOMARA READ ABIODUN Ot E11.40 TYPE 2 DIABETES MELLITUS WITH DIABETIC N 07/04/2016 XIOMARA READ ABIODUN Ot E11.51 TYPE 2 DIABETES W DIABETIC PERIPHERAL AN 07/04/2016 XIOMARA READ ABIODUN Ot E11.621 TYPE 2 DIABETES MELLITUS WITH FOOT ULCER 07/04/2016 XIOMARA READ ABIODUN Ot E11.69 TYPE 2 DIABETES MELLITUS WITH OTHER SPEC 07/04/2016 XIOMARA READ ABIODUN Ot E78.00 PURE HYPERCHOLESTEROLEMIA, UNSPECIFIED 07/04/2016 XIOMARA READ ABIODUN Ot F17.210 NICOTINE DEPENDENCE, CIGARETTES, UNCOMPL 07/04/2016 XIOMARA READ ABIODUN Ot G47.30 SLEEP APNEA, UNSPECIFIED 07/04/2016 XIOMARA READ ABIODUN Ot G47.9 SLEEP DISORDER, UNSPECIFIED 07/04/2016 XIOMARA READ ABIODUN Ot I10 ESSENTIAL (PRIMARY) HYPERTENSION 07/04/2016 XIOMARA READ ABIODUN Ot I25.10 ATHSCL HEART DISEASE OF [place] CORONARY 07/04/2016 XIOMARA READ ABIODUN Ot I25.2 OLD MYOCARDIAL INFARCTION 07/04/2016 XIOMARA READ ABIODUN Ot I65.23 OCCLUSION AND STENOSIS OF [place]ILATERAL [place] 07/04/2016 XIOMARA READ ABIODUN Ot I70.0 ATHEROSCLEROSIS OF [place] 07/04/2016 ABIODUN SOLANO DO Ot I70.235 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 W 07/04/2016 ABIODUN SOLANO DO Ot I70.245 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 OF LEFT LEG W ULC 07/04/2016 XIOMARA READ ABIODUN Ot K21.9 GASTRO-ESOPHAGEAL REFLUX DISEASE WITHOUT 07/04/2016 XIOMARA READ ABIODUN Ot M19.91 PRIMARY OSTEOARTHRITIS, UNSPECIFIED SITE 07/04/2016 ABIODUN SOLANO DO Ot M54.9 DORSALGIA, UNSPECIFIED 07/04/2016 XIOMARA READ ABIODUN Ot M86.9 OSTEOMYELITIS, UNSPECIFIED 07/04/2016 XIOMARA READ ABIODUN Ot N18.9 CHRONIC KIDNEY DISEASE, UNSPECIFIED 07/04/2016 ABIODUN SOLANO DO Ot T85.618A BREAKDOWN (MECHANICAL) OF INTERNAL PROST 07/04/2016 JE SOLANO DOI Ot T87.41 INFECTION OF AMPUTATION STUMP, RIGHT UPP 07/04/2016 ABIODUN SOLANO DO Ot T87.42 INFECTION OF AMPUTATION STUMP, LEFT UPPE 07/04/2016 ABIODUN SOLANO DO Ot Z79.4 FDC (CURRENT) USE OF INSULIN 07/04/2016 ABIODUN SOLANO DO Ot Z89.431 ACQUIRED ABSENCE OF RIGHT FOOT 07/04/2016 ABIODUN SOLANO DO Ot Z91.14 PATIENT'S OTHER NONCOMPLIANCE WITH MEDIC 07/04/2016 ABIODUN SOLANO DO Ot Z95.1 PRESENCE OF AORTOCORONARY BYPASS GRAFT 07/05/2016 JORDEN GREER MD Ot 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 W DIABETIC GALLERY MANAGER 07/05/2016 JORDEN GREER MD Ot E11.621 TYPE 2 DIABETES MELLITUS WITH FOOT ULCER 07/05/2016 JORDEN GREER MD Ot I12.9 HYPERTENSIVE CHRONIC KIDNEY DISEASE W ST 07/05/2016 JORDEN GREER MD, Ot I25.10 ATHSCL HEART DISEASE OF [place] CORONARY 07/05/2016 JORDEN GREER MD, Ot I70.235 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 07/05/2016 JORDEN GREER MD, Ot L97.519 NON-PRS CHRONIC ULCER OTH PRT RIGHT FOOT 07/05/2016 JORDEN GREER MD, Ot N18.9 CHRONIC KIDNEY DISEASE, UNSPECIFIED 07/05/2016 JORDEN GREER MD, Ot Z72.0 TOBACCO USE 07/05/2016 JORDEN GREER MD, Ot Z79.4 FDC (CURRENT) USE OF INSULIN 07/05/2016 JORDEN GREER MD, Ot Z79.899 OTHER FDC (CURRENT) DRUG THERAPY 07/05/2016 JORDEN GREER MD, Ot Z95.1 PRESENCE OF AORTOCORONARY BYPASS GRAFT 07/05/2016 JORDEN GREER MD, Ot Z95.5 PRESENCE OF CORONARY ANGIOPLASTY IMPLANT 07/05/2016 ABIODUN SOLANO DO Ot E03.9 HYPOTHYROIDISM, UNSPECIFIED 07/05/2016 JE SOLANO DOI Ot 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 W DIABETIC GALLERY MANAGER 07/05/2016 ABIODUN SOLANO DO Ot E11.40 TYPE 2 DIABETES MELLITUS WITH DIABETIC N 07/05/2016 JE SOLANO DOI Ot E11.51 TYPE 2 DIABETES W DIABETIC PERIPHERAL AN 07/05/2016 ABIODUN SOLANO DO Ot E11.621 TYPE 2 DIABETES MELLITUS WITH FOOT ULCER 07/05/2016 JE SOLANO DOI Ot E11.69 TYPE 2 DIABETES MELLITUS WITH OTHER SPEC 07/05/2016 JE SOLANO DOI Ot E78.00 PURE HYPERCHOLESTEROLEMIA, UNSPECIFIED 07/05/2016 XIOMARA READ ABIODUN Ot F17.210 NICOTINE DEPENDENCE, CIGARETTES, UNCOMPL 07/05/2016 XIOMARA READ ABIODUN Ot G47.30 SLEEP APNEA, UNSPECIFIED 07/05/2016 XIOMARA READ ABIODUN Ot G47.9 SLEEP DISORDER, UNSPECIFIED 07/05/2016 XIOMARA READ ABIODUN Ot I10 ESSENTIAL (PRIMARY) HYPERTENSION 07/05/2016 JE SOLANO DOI Ot I12.9 HYPERTENSIVE CHRONIC KIDNEY DISEASE W ST 07/05/2016 JE SOLANO DOI Ot I25.10 ATHSCL HEART DISEASE OF [place] CORONARY 07/05/2016 JE SOLANO DOI Ot I25.2 OLD MYOCARDIAL INFARCTION 07/05/2016 JE SOLANO DOI Ot I65.23 OCCLUSION AND STENOSIS OF BILATERAL [place] 07/05/2016 XIOMARA READ ABIODUN Ot I70.0 ATHEROSCLEROSIS OF [place] 07/05/2016 XIOMARA READ ABIODUN Ot I70.235 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 07/05/2016 XIOMARA READ ABIODUN Ot I70.245 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 OF LEFT LEG W ULC 07/05/2016 ABIODUN SOLANO DO Ot K21.9 GASTRO-ESOPHAGEAL REFLUX DISEASE WITHOUT 07/05/2016 XIOMARA READ ABIODUN Ot L97.519 NON-PRS CHRONIC ULCER OTH PRT RIGHT FOOT 07/05/2016 XIOMARA READ ABIODUN Ot M19.91 PRIMARY OSTEOARTHRITIS, UNSPECIFIED SITE 07/05/2016 ABIODUN SOLANO DO Ot M54.9 DORSALGIA, UNSPECIFIED 07/05/2016 XIOMARA READ ABIODUN Ot M86.9 OSTEOMYELITIS, UNSPECIFIED 07/05/2016 XIOMARA READ ABIODUN Ot N18.9 CHRONIC KIDNEY DISEASE, UNSPECIFIED 07/05/2016 AIBODUN SOLANO DO Ot T85.618A BREAKDOWN (MECHANICAL) OF INTERNAL PROST 07/05/2016 XIOMARA DO ABIODUN Ot T87.41 INFECTION OF AMPUTATION STUMP, RIGHT UPP 07/05/2016 XIOMARA READ ABIODUN Ot T87.42 INFECTION OF AMPUTATION STUMP, LEFT UPPE 07/05/2016 ABIODUN SOLANO DO Ot Z79.4 FDC (CURRENT) USE OF INSULIN 07/05/2016 XIOMARA READ ABIODUN Ot Z89.431 ACQUIRED ABSENCE OF RIGHT FOOT 07/05/2016 ABIODUN SOLANO DO Ot Z91.14 PATIENT'S OTHER NONCOMPLIANCE WITH MEDIC 07/05/2016 ABIODUN SOLANO DO Ot Z95.1 PRESENCE OF AORTOCORONARY BYPASS GRAFT 07/06/2016 Ot 250.00 DIAB CONRADO WO COMPL, TYPE II OR UNSPEC TY 07/06/2016 Ot 729.5 PAIN IN LIMB 07/06/2016 Ot 414.00 CORON ATHEROSCLER NOS TYPE VESSEL, NATIV 07/06/2016 Ot 433.10 CAROTID ARTERY OCCLUSION W O CEREBRAL IN 07/06/2016 Ot 433.30 MULT BILTRAL ARTERY OCCLUSION WO CEREBRA 07/06/2016 Ot 780.2 SYNCOPE AND COLLAPSE 07/06/2016 Ot 414.00 CORON ATHEROSCLER NOS TYPE VESSEL, NATIV 07/06/2016 Ot 780.2 SYNCOPE AND COLLAPSE 07/06/2016 SHAYNA MCKAY Ot 278.00 OBESITY, NOS 07/06/2016 SHAYNA MCKAY Ot 401.9 HYPERTENSION NOS 07/06/2016 SHAYNA MCKAY Ot 414.00 CORON ATHEROSCLER NOS TYPE VESSEL, NATIV 07/06/2016 BRANDI QUINTANILLA, PHAN Aguero Ot 414.9 CHR ISCHEMIC HRT DIS NOS 07/06/2016 PHAN PAZ MD Ot 585.9 CHRONIC KIDNEY DISEASE, UNSPECIFIED 07/06/2016 PHAN PAZ MD Ot V72.81 [id number] CARDIOVASCULAR 07/06/2016 VIKTORIA QUINTANILLA, FREDDIE Traore Ot 440.20 ATHEROSCLEROSIS [place] ARTERIES EXTREMIT 07/06/2016 FREDDIE BLUM MD Ot 729.5 PAIN IN LIMB 07/06/2016 FREDDIE BLUM MD Ot V64.1 NO PROC/CONTRAINDICATION 07/06/2016 FREDDIE BLUM MD Ot 790.99 BLOOD EXAM - OTH NONSPECIFIC FINDINGS 07/06/2016 Ot V58.62 ENCOUNT FOR LONG-TERM(CURRENT) USE OF AN 07/06/2016 Ot V58.83 ENCOUNTER FOR THERAPEUTIC DRUG MONITORIN 07/06/2016 Ot V58.62 ENCOUNT FOR LONG-TERM(CURRENT) USE OF AN 07/06/2016 Ot V58.83 ENCOUNTER FOR THERAPEUTIC DRUG MONITORIN 07/06/2016 Ot V58.62 ENCOUNT FOR LONG-TERM(CURRENT) USE OF AN 07/06/2016 Ot V58.83 ENCOUNTER FOR THERAPEUTIC DRUG MONITORIN 07/06/2016 SOLANO DO, ABIODUN Ot V58.62 ENCOUNT FOR LONG-TERM(CURRENT) USE OF AN 07/06/2016 SOLANO DO, ABIODUN Ot V58.83 ENCOUNTER FOR THERAPEUTIC DRUG MONITORIN 07/06/2016 SOLANO DO, ABIODUN Ot V58.62 ENCOUNT FOR LONG-TERM(CURRENT) USE OF AN 07/06/2016 SOLANO DO, ABIODUN Ot V58.83 ENCOUNTER FOR THERAPEUTIC DRUG MONITORIN 07/06/2016 SOLANO DO, ABIODUN Ot V58.69 OTH MED,LT,CURRENT USE 07/06/2016 SOLANO DO, ABIODUN Ot V58.83 ENCOUNTER FOR THERAPEUTIC DRUG MONITORIN 07/06/2016 SOLANO DO, ABIODUN Ot V58.62 ENCOUNT FOR LONG-TERM(CURRENT) USE OF AN 07/06/2016 SOLANO DO, ABIODUN Ot V58.83 ENCOUNTER FOR THERAPEUTIC DRUG MONITORIN 07/06/2016 SOLANO DO, ABIODUN Ot V58.62 ENCOUNT FOR LONG-TERM(CURRENT) USE OF AN 07/06/2016 SOLANO DO, ABIODUN Ot V58.83 ENCOUNTER FOR THERAPEUTIC DRUG MONITORIN 07/06/2016 SOLANO DO ABIODUN Ot 730.27 OSTEOMYELITIS NOS-ANKLE 07/06/2016 SOLANO DO ABIODUN Ot V58.62 ENCOUNT FOR LONG-TERM(CURRENT) USE OF AN 07/06/2016 SOLANO DO ABIODUN Ot V58.69 OTH MED,LT,CURRENT USE 07/06/2016 SOLANO DO ABIODUN Ot V58.83 ENCOUNTER FOR THERAPEUTIC DRUG MONITORIN 07/06/2016 FREDDIE BLUM MD Ot 707.15 ULCER OF OTHER PART OF FOOT 07/06/2016 SOLANO DO ABIODUN Ot V58.62 ENCOUNT FOR LONG-TERM(CURRENT) USE OF AN 07/06/2016 SOLANO DO ABIODUN Ot V58.83 ENCOUNTER FOR THERAPEUTIC DRUG MONITORIN 07/06/2016 XIOMARA DO ABIODUN Ot V58.81 FIT/ADJ VASCULAR CATHETER 07/06/2016 FREDDIE BLUM MD Ot 709.8 SKIN DISORDERS NEC 07/06/2016 FREDDIE BLUM MD Ot V72.63 PRE-PROCEDURAL LABORATORY EXAMINATION 07/06/2016 FREDDIE BLUM MD Ot V74.8 SCREEN-BACTERIAL DIS NEC 07/06/2016 FREDDIE BLUM MD Ot 892.0 OPEN WOUND OF FOOT 07/06/2016 FREDDIE BLUM MD Ot E000.8 OTHER EXTERNAL CAUSE STATUS 07/06/2016 FREDDIE BLUM MD Ot E928.9 ACCIDENT NOS 07/06/2016 FREDDIE BLUM MD Ot V72.84 EXAM PRE-OPERATIVE NOS 07/06/2016 FREDDIE BLUM MD Ot 892.0 OPEN WOUND OF FOOT 07/06/2016 FREDDIE BLUM MD Ot E000.8 OTHER EXTERNAL CAUSE STATUS 07/06/2016 FREDDIE BLUM MD Ot E928.9 ACCIDENT NOS 07/06/2016 EDITH RUTH MD Ot 707.15 ULCER OF OTHER PART OF FOOT 07/06/2016 EDITH RUTH MD Ot V49.72 OTHER TOE(S) AMPUTATION STATUS 07/06/2016 EDITH RUTH MD Ot 250.80 DIAB W OTH SPEC MANIFEST, TYPE II OR UNS 07/06/2016 EDITH RUTH MD Ot 707.15 ULCER OF OTHER PART OF FOOT 07/06/2016 FLORY QUINTANILLA, EDITH Lane Ot 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 07/06/2016 FREDDIE BLUM MD Ot 459.81 VENOUS INSUFFICIENCY NOS 07/06/2016 FREDDIE BLUM MD Ot V72.84 EXAM PRE-OPERATIVE NOS 07/06/2016 FREDDIE BLUM MD Ot 707.15 ULCER OF OTHER PART OF FOOT 07/06/2016 JE SOLANO DOI Ot 244.9 HYPOTHYROIDISM NOS 07/06/2016 XIOMARA READ ABIODUN Ot 250.00 DIAB CONRADO WO COMPL, TYPE II OR UNSPEC TY 07/06/2016 XIOMARA READ ABIODUN Ot 272.1 PURE HYPERGLYCERIDEMIA 07/06/2016 XIOMARA READ ABIODUN Ot 280.8 IRON DEFIC ANEMIA NEC 07/06/2016 XIOMARA READ ABIODUN Ot 401.1 BENIGN HYPERTENSION 07/06/2016 XIOMARA READ ABIODUN Ot 414.00 CORON ATHEROSCLER NOS TYPE VESSEL, NATIV 07/06/2016 JE SOLANO DOI Ot 593.9 RENAL URETERAL DIS NOS 07/06/2016 XIOMARA READ ABIODUN Ot 730.07 AC OSTEOMYELITIS-ANKLE 07/06/2016 XIOMARA READ ABIODUN Ot V45.81 AORTOCORONARY BYPASS 07/06/2016 JE SOLANO DOI Ot V58.69 OTH MED,LT,CURRENT USE 07/06/2016 FREDDIE BLUM MD Ot 709.8 SKIN DISORDERS NEC 07/06/2016 FREDDIE BLUM MD Ot V72.84 EXAM PRE-OPERATIVE NOS 07/06/2016 MIKHAIL CARBAJAL MD Ot E11.621 TYPE 2 DIABETES MELLITUS WITH FOOT ULCER 07/06/2016 MIKHAIL CARBAJAL MD Ot L97.422 NON-PRS CHR ULCER OF LEFT HEEL AND MIDFO 07/06/2016 MIKHAIL CARBAJAL MD Ot E11.621 TYPE 2 DIABETES MELLITUS WITH FOOT ULCER 07/06/2016 MIKHAIL CARBAJAL MD Ot L97.422 NON-PRS CHR ULCER OF LEFT HEEL AND MIDFO 07/06/2016 KIARRA ESPAÑA DPM Ot E11.621 TYPE 2 DIABETES MELLITUS WITH FOOT ULCER 07/06/2016 KIARRA ESPAÑA DPM Ot L97.329 NON-PRESSURE CHRONIC ULCER OF LEFT ANKLE 07/06/2016 KIARRA ESPAÑA DPM Ot Z01.818 ENCOUNTER FOR OTHER PREPROCEDURAL EXAMIN 07/06/2016 MIKHAIL CARBAJAL MD, Ot E11.621 TYPE 2 DIABETES MELLITUS WITH FOOT ULCER 07/06/2016 MIKHAIL CARBAJAL MD, Ot L97.422 NON-PRS CHR ULCER OF LEFT HEEL AND MIDFO 07/06/2016 ASAF VILCHIS, JOE Boucher Ot M25.551 PAIN IN RIGHT HIP 07/06/2016 ASAF VILCHIS, JOE Boucher Ot M54.5 LOW BACK PAIN 07/06/2016 MIKHAIL CARBAJAL MD, Ot E11.621 TYPE 2 DIABETES MELLITUS WITH FOOT ULCER 07/06/2016 MIKHAIL CARBAJAL MD, Ot L97.422 NON-PRS CHR ULCER OF LEFT HEEL AND MIDFO 07/06/2016 MIKHAIL CARBAJAL MD, Ot E11.621 TYPE 2 DIABETES MELLITUS WITH FOOT ULCER 07/06/2016 MIKHAIL CARBAJAL MD, Ot L97.422 NON-PRS CHR ULCER OF LEFT HEEL AND MIDFO 07/06/2016 SOLANO DO ABIODUN Ot D50.8 OTHER IRON DEFICIENCY ANEMIAS 07/06/2016 SOLANO DO ABIODUN Ot E03.9 HYPOTHYROIDISM, UNSPECIFIED 07/06/2016 SOLANO DO ABIODUN Ot E11.65 TYPE 2 DIABETES MELLITUS WITH HYPERGLYCE 07/06/2016 SOLANO DO ABIODUN Ot E78.1 PURE HYPERGLYCERIDEMIA 07/06/2016 SOLANO DO ABIODUN Ot R80.8 OTHER PROTEINURIA 07/06/2016 SOLANO DO ABIODUN Ot Z00.00 ENCNTR FOR GENERAL ADULT MEDICAL EXAM W/ 07/06/2016 MIKHAIL CARBAJAL MD, Ot E11.621 TYPE 2 DIABETES MELLITUS WITH FOOT ULCER 07/06/2016 MIKHAIL CARBAJAL MD Ot I70.235 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 07/06/2016 MIKHAIL CARBAJAL MD Ot L97.512 NON-PRS CHRONIC ULCER OTH PRT RIGHT FOOT 07/06/2016 MIKHAIL CARBAJAL MD, Ot E11.621 TYPE 2 DIABETES MELLITUS WITH FOOT ULCER 07/06/2016 MIKHAIL CARBAJAL MD Ot I70.235 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 07/06/2016 MIKHAIL CARBAJAL MD Ot L97.512 NON-PRS CHRONIC ULCER OTH PRT RIGHT FOOT 07/06/2016 MIKHAIL CARBAJAL MD Ot E11.621 TYPE 2 DIABETES MELLITUS WITH FOOT ULCER 07/06/2016 RAVEN MD, MIKHAIL D Ot I70.235 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 07/06/2016 MIKHAIL CARBAJAL MD Ot L97.512 NON-PRS CHRONIC ULCER OTH PRT RIGHT FOOT 07/06/2016 SOLANOABIODUN SEN DO Ot I87.2 VENOUS INSUFFICIENCY (CHRONIC) (PERIPHER 07/06/2016 SOLANOFRANCY READ ABIODUN Ot Z45.2 ENCOUNTER FOR ADJUSTMENT AND MANAGEMENT 07/06/2016 SOLANOJE SEN DOI Ot D50.8 OTHER IRON DEFICIENCY ANEMIAS 07/06/2016 SOLANOFRANCY READ ABIODUN Ot E03.9 HYPOTHYROIDISM, UNSPECIFIED 07/06/2016 SOLANOFRANCY READ ABIODUN Ot E11.65 TYPE 2 DIABETES MELLITUS WITH HYPERGLYCE 07/06/2016 SOLANOFRANCY READ ABIODUN Ot E78.00 PURE HYPERCHOLESTEROLEMIA, UNSPECIFIED 07/06/2016 SOLANOFRANCY READ ABIODUN Ot E78.1 PURE HYPERGLYCERIDEMIA 07/06/2016 SOLANOJE SEN DOI Ot Z00.00 ENCNTR FOR GENERAL ADULT MEDICAL EXAM W/ 07/06/2016 COREEN CORMIER STRICKLER ATTENDANT Ot E11.621 TYPE 2 DIABETES MELLITUS WITH FOOT ULCER 07/06/2016 COREEN CORMIER APRN Ot I70.235 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 07/06/2016 COREEN CORMIER APRN Ot L97.512 NON-PRS CHRONIC ULCER OTH PRT RIGHT FOOT 07/06/2016 COREEN CORMIER STRICKLER ATTENDANT Ot E11.621 TYPE 2 DIABETES MELLITUS WITH FOOT ULCER 07/06/2016 COREEN CORMIER STRICKLER ATTENDANT Ot I70.235 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 07/06/2016 COREEN CORMIER APRN Ot 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 07/06/2016 COREEN CORMIER APRN Ot L97.522 NON-PRS CHRONIC ULCER OTH PRT LEFT FOOT 07/06/2016 COREEN CORMIER APRN Ot N18.3 CHRONIC KIDNEY DISEASE, STAGE 3 ( MODERAT 07/06/2016 COREEN CORMIER STRICKLER ATTENDANT Ot T87.43 INFECTION OF AMPUTATION STUMP, RIGHT LOW 07/06/2016 LEIGH ANN FUCHS DO Ot T82.518A BREAKDOWN OF CARDIAC AND VASCULAR DEVICE 07/12/2016 ABIODUN SOLANO DO Ot M86.9 OSTEOMYELITIS, UNSPECIFIED 07/13/2016 SOLANO DO, ABIODUN Ot M86.9 OSTEOMYELITIS, UNSPECIFIED 07/14/2016 SOLANO DO, ABIODUN Ot M86.9 OSTEOMYELITIS, UNSPECIFIED 07/15/2016 SOLANO DO, ABIODUN Ot M86.9 OSTEOMYELITIS, UNSPECIFIED 07/16/2016 SOLANO DO, ABIODUN Ot M86.9 OSTEOMYELITIS, UNSPECIFIED 07/16/2016 JORDEN GREER MD Ot E78.5 HYPERLIPIDEMIA, UNSPECIFIED 07/16/2016 JORDEN GREER MD Ot I12.9 HYPERTENSIVE CHRONIC KIDNEY DISEASE W ST 07/16/2016 JORDEN GREER MD, Ot I25.10 ATHSCL HEART DISEASE OF [place] CORONARY 07/16/2016 JORDEN GREER MD Ot I73.9 PERIPHERAL VASCULAR DISEASE, UNSPECIFIED 07/16/2016 JORDEN GREER MD, Ot N18.9 CHRONIC KIDNEY DISEASE, UNSPECIFIED 07/16/2016 JORDEN GREER MD Ot T82.514A BREAKDOWN (MECHANICAL) OF INFUSION EVE 07/16/2016 JORDEN GREER MD, Ot Z72.0 TOBACCO USE 07/16/2016 JORDEN GREER MD, Ot Z79.4 FDC (CURRENT) USE OF INSULIN 07/16/2016 JORDEN GREER MD, Ot Z79.899 OTHER HAND EXPANSION ENVELOPE MAKER (CURRENT) DRUG THERAPY 07/16/2016 JORDEN GREER MD, Ot Z91.19 PATIENT'S NONCOMPLIANCE W [facility] MEDICAL TR 07/16/2016 JORDEN GREER MD Ot Z95.1 PRESENCE OF AORTOCORONARY BYPASS GRAFT 07/17/2016 SOLANO DO, ABIODUN Ot M86.9 OSTEOMYELITIS, UNSPECIFIED 07/18/2016 SOLANO DO, ABIODUN Ot M86.9 OSTEOMYELITIS, UNSPECIFIED 07/19/2016 SOLANO DO, ABIODUN Ot M86.9 OSTEOMYELITIS, UNSPECIFIED 07/20/2016 SOLANO DO, ABIODUN Ot M86.9 OSTEOMYELITIS, UNSPECIFIED 07/21/2016 SOLANO DO, ABIODUN Ot M86.9 OSTEOMYELITIS, UNSPECIFIED 07/22/2016 SOLANO DO, ABIODUN Ot M86.9 OSTEOMYELITIS, UNSPECIFIED 07/23/2016 SOLANO DO, ABIODUN Ot M86.9 OSTEOMYELITIS, UNSPECIFIED 07/24/2016 SOLANO DO, ABIODUN Ot M86.9 OSTEOMYELITIS, UNSPECIFIED 07/25/2016 XIOMARA DO, ABIODUN Ot M86.9 OSTEOMYELITIS, UNSPECIFIED 07/26/2016 XIOMARA DO, ABIODUN Ot M86.9 OSTEOMYELITIS, UNSPECIFIED 07/26/2016 XIOMARA DO, ABIODUN Ot M86.9 OSTEOMYELITIS, UNSPECIFIED 07/27/2016 ABIODUN SOLANO DO Ot M86.9 OSTEOMYELITIS, UNSPECIFIED Procedures Code Description Performed By Performed On 39.31 SUTURE OF ARTERY 06/09/2009 83.65 OTHER MUSCLE/FASC SUTURE 06/09/2009 00.40 PROCEDURE ON SINGLE VESSEL 01/20/2014 17.56 ATHERECTOMY OF OTHER NON-CORONARY VESSEL 01/20/2014 39.50 ANGIOPLASTY OF OTHER NON-CORONARY VESSEL 01/20/2014 88.42 CONTRAST AORTOGRAM 01/20/2014 88.48 CONTRAST ARTERIOGRAM-LEG 01/20/2014 89.44 CARDIAC STRESS TEST NEC 01/20/2014 00.40 PROCEDURE ON SINGLE VESSEL 02/26/2014 39.50 ANGIOPLASTY OF OTHER NON-CORONARY VESSEL 02/26/2014 88.48 CONTRAST ARTERIOGRAM-LEG 02/26/2014 77.68 LOC EXC LES METATAR/TAR 03/17/2014 00.43 PROCEDURE ON FOUR OR MORE VESSELS 04/20/2014 00.48 INSERTION OF FOUR OR MORE VASCULAR STENT 04/20/2014 00.55 INSEJ OF DRUG-ELUTING STENT(S) OF OTH PE 04/20/2014 39.50 ANGIOPLASTY OF OTHER NON-CORONARY VESSEL 04/20/2014 39.90 INSEJ CAD-OSHI-NOCDNVX PERIPHERAL NON-CO 04/20/2014 88.48 CONTRAST ARTERIOGRAM-LEG 04/20/2014 83.45 OTHER MYECTOMY 83.45 OTHER MYECTOMY 83.45 OTHER MYECTOMY 86.04 OTHER SKIN SUBQ I D 05/05/2014 86.04 OTHER SKIN SUBQ I D 05/11/2014 45.16 ESOPHAGOGASTRODUODENOSCOPY [EGD] W/CLOSE 05/20/2014 83.44 OTHER FASCIECTOMY 06/02/2014 86.07 INSERTION OF TOTALLY IMPLANTABLE VASC AC 06/02/2014 83.44 OTHER FASCIECTOMY 07/09/2014 [id number] REMOVAL OF VAD FROM TRUNK SUBCU/FASCIA, 06/29/2016 [id number] DILATION OF LEFT ANTERIOR TIBIAL ARTERY, 07/02/2016 [id number] FLUOROSCOPY OF ABDOMINAL AORTA USING LOW 07/02/2016 [id number] FLUOROSCOPY OF R LOW EXTREM ART USING L 07/02/2016 [id number] FLUOROSCOPY OF L LOW EXTREM ART USING L 07/02/2016 [id number] DILATION OF R FEM ART USING DRUG BLLN, P 07/04/2016 Encounters ACCT No. Visit Date/Time Discharge Status Pt. 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 [id number] 06/28/2016 15:45:00 2016 15:45:00 CAN Preadmit LEIGH ANN FUCHS DO Via [facility] PREOP PORT REMOVAL [id number] 06/27/2016 14:07:00 2016 18:10:00 DIS Outpatient JORDEN GREER MD Via [facility] CATH RETREVAL OF PORT [id number] 06/08/2016 10:05:00 2016 13:25:00 DIS Outpatient KIARRA ESPAÑA DPM Via [facility] GANGREEN RIGHT FOOT [id number] 06/07/2016 11:19:00 2016 11:45:00 DIS Outpatient KIARRA ESPAÑA DPM Via [facility] PREOP RIGHT GANGREENE [id number] 05/30/2016 06:40:00 2016 10:35:00 DIS Outpatient JORDEN GREER MD [facility] CATH PERIPHERAL ANGIOGRAPHY,POSSIBLE PERIPHERAL STENT [id number] 04/27/2016 10:49:00 2016 00:01:00 DIS Outpatient ABIODUN SOLANO DO Via [facility] POOR VENOUS ACCESS [id number] 01/26/2016 10:00:00 2015 00:01:00 DIS Outpatient ABIODUN SOLANO DO Via [facility] POOR VENOUS ACCESS [id number] 10/26/2015 10:36:00 2015 00:01:00 DIS Outpatient SOLANO ABIODUN READ Via [facility] POOR VENOUS ACCESS [id number] 09/01/2015 09:26:00 2015 12:00:00 DIS Outpatient MIKHAIL CARBAJAL MD Via [facility] WOUNDCARE [id number] 08/18/2015 09:35:00 2015 00:01:00 DIS Outpatient MIKHAIL CARBAJAL MD [facility] WOUNDCARE [id number] 05/30/2015 10:13:00 2015 00:01:00 DIS Outpatient MIKHAIL CARBAJAL MD Via [facility] L FOOT WOUND [id number] 06/30/2015 06:12:00 2015 09:13:00 DIS Outpatient EDITH PETERSEN MD Via [facility] BAROTRAMMA [id number] 06/28/2015 12:01:00 2015 12:10:00 DIS Outpatient EDITH PETERSEN MD [facility] PREOP BAROTRAMMA [id number] 05/03/2015 10:20:00 2015 10:56:00 DIS Outpatient KIARRA ESPAÑA DPM Via [facility] DIABETIC FOOT ULCER LEFT [id number] 05/25/2015 08:00:00 2015 00:01:00 DIS Outpatient MIKHAIL CARBAJAL MD [facility] WOUNDCARE [id number] 04/01/2015 06:27:00 2015 11:35:00 DIS Outpatient MIKHAIL CARBAJAL MD [facility] SURG RCR WOUND INFECTION [id number] 10/22/2014 07:08:00 2014 00:01:00 DIS Outpatient FREDDIE BLUM MD [facility] SURG RCR MRSA [id number] 11/12/2014 06:36:00 2014 10:05:00 DIS Outpatient FREDDIE BLUM MD Via [facility] WOUND LEFT FOOT [id number] 11/09/2014 05:44:00 2014 23:59:59 CLS Outpatient FREDDIE BLUM MD Via [facility] PREOP WOUND LEFT FOOT [id number] 11/08/2014 09:15:00 2014 23:59:59 CLS Outpatient SOLANO ABIODUN READ [facility] LAB CAD,HTN,RENAL INSUF,ANEMIA,PROTEINURIA [id number] 10/22/2014 14:36:00 2014 23:59:59 CLS Outpatient FREDDIE BLUM MD [facility] LABNPT WOUND ON LEFT FOOT [id number] 10/22/2014 08:03:00 2014 10:00:00 DIS Outpatient EDITH RUTH MD [facility] WOUNDCARE [id number] 10/20/2014 06:16:00 2014 10:40:00 DIS Outpatient FREDDIE BLUM MD Via [facility] PORT REMOVAL AND REPLACEMENT [id number] 10/19/2014 08:30:00 2014 23:59:59 CLS Outpatient EDITH RUTH MD [facility] CARD EROSION OF LEFT FOOT METERASAL [id number] 10/18/2014 06:15:00 2014 23:59:59 CLS Outpatient FREDDIE BLUM MD [facility] PREOP REMOVAL AND REPLACE PORT [id number] 10/12/2014 10:45:00 2014 23:59:59 CLS Outpatient EDITH RUTH MD [facility] RAD LEFT FOOT ULCER,PAD [id number] 09/27/2014 15:14:00 2014 23:59:59 CLS Outpatient FREDDIE BLUM MD [facility] LABNPT [id number] 09/17/2014 07:15:00 2014 13:50:00 DIS Outpatient FREDDIE BLUM MD [facility] LEFT FOOT WOUND; DIABETIC ULCER [id number] 09/15/2014 07:00:00 2014 23:59:59 CLS Outpatient FREDDIE BLUM MD [facility] PREOP LEFT FOOT WOUND; DIABETIC ULCER [id number] 08/23/2014 09:46:00 2014 14:55:00 DIS Outpatient FREDDIE BLUM MD Via [facility] WOUND LEFT FOOT [id number] 08/20/2014 13:49:00 2014 23:59:59 CLS Outpatient FREDDIE BLUM MD [facility] PREOP WOUND LEFT FOOT [id number] 08/04/2014 15:21:00 2014 23:59:59 CLS Outpatient SOLANO DO ABIODUN Via [facility] UNABLE TO ACCESS PORT [id number] 07/05/2014 12:50:00 2014 14:00:00 DIS Outpatient EDITH RUTH MD [facility] WOUNDCARE [id number] 07/12/2014 08:57:00 2014 23:59:59 CLS Outpatient SOLANOFRANCY READ ABIODUN Via [facility] GLC VANCO THERAPY, WOUND INFECTION [id number] 07/09/2014 16:10:00 2014 14:00:00 DIS Inpatient FREDDIE BLUM MD [facility] SURGICAL GANGRENE LEFT FOOT [id number] 07/08/2014 13:53:00 2014 23:59:59 CLS Outpatient FREDDIE BLUM MD [facility] LABNPT ULCER (L) LATERAL FOOT [id number] 07/08/2014 12:34:00 2014 23:59:59 CLS Outpatient XIOMARA READ ABIODUN Via [facility] LAB ACUTE OSTEMYLITIS ANKLE AND FOOT , DIABETES [id number] 07/04/2014 23:04:00 2014 23:59:59 CLS Outpatient SOLANO DO ABIODUN [facility] GLC VANCO THERAPY [id number] 07/02/2014 19:25:00 2014 19:51:00 DIS Emergency PHAN BARRERA APRN Via [facility] ER PORT ISSUES [id number] 06/29/2014 16:00:00 2014 23:59:59 CLS Outpatient SOLANO DO ABIODUN [facility] GLC VANCO THERAPY [id number] 06/23/2014 17:07:00 2014 23:59:59 CLS Outpatient SOLANO DOJEI [facility] GLC VANCO IV THERAPY [id number] 06/20/2014 16:52:00 2014 23:59:59 CLS Outpatient SOLANO DO ABIODUN [facility] GLC VANCO IV THERAPY [id number] 06/17/2014 17:38:00 2014 23:59:59 CLS Outpatient SOLANO DO ABIODUN Via [facility] GLC VANCO THERAPY [id number] 06/14/2014 16:42:00 2014 23:59:59 CLS Outpatient SOLANO DO ABIODUN Via [facility] GLC WOUND INFECTION, VANCO THERAPY [id number] 04/19/2014 11:28:00 2014 10:00:00 DIS Inpatient FREDDIE BLUM MD [facility] SURGICAL SEPSIS [id number] 03/16/2014 12:13:00 2014 12:30:00 DIS Outpatient EDITH RUTH MD [facility] WOUNDCARE OPEN AREA LT FOOT [id number] 03/16/2014 16:20:00 2013 14:14:00 DIS Inpatient FREDDIE BLUM MD [facility] SURGICAL LT FOOT WOUND NECROSIS [id number] 02/24/2014 15:07:00 2013 12:25:00 DIS Inpatient FREDDIE BLUM MD [facility] CSD URINARY INSUFFICIENCY [id number] 02/25/2014 14:30:00 2013 23:59:59 CLS Preadmit FREDDIE BLUM MD [facility] CATH ASOD,LEG PAIN [id number] 02/11/2014 08:42:00 2013 10:10:00 DIS Outpatient FREDDIE BLUM MD [facility] CATH ASOD,LEG PAIN [id number] 02/08/2014 08:21:00 2013 23:59:59 CLS Outpatient PHAN PAZ MD [facility] LAB CAD,CKD [id number] 01/18/2014 12:42:00 2013 15:35:00 DIS Inpatient FREDDIE BLUM MD Via [facility] ICU LOW CREATININE [id number] 01/18/2014 08:49:00 2013 23:59:59 CLS Outpatient FREDDIE BLUM MD [facility] LAB ELEVATED BUN AND CREATINE [id number] 01/14/2014 07:50:00 2013 23:59:59 CLS Outpatient FREDDIE BLUM MD [facility] CATH ASOD,LEG PAIN [id number] 07/29/2013 08:13:00 2013 23:59:59 CLS Outpatient SAHYNA MCKAY [facility] CARD CAD,HTN [id number] 07/27/2016 08:39:00 ACT Outpatient ABIODUN SOLANO DO Via [facility] INFECTION FOOT [id number] 07/26/2016 09:56:00 ACT Outpatient MIKHAIL CARBAJAL MD [facility] WOUNDCARE [id number] 06/29/2016 09:00:00 PEN Preadmit LEIGH ANN FUCHS DO Via [facility] MALFUNCTIONING PORT [id number] 06/27/2016 11:30:00 ACT Outpatient LEIGH ANN FUCHS DO Via [facility] RAD FRACTURED PORT LEAD [id number] 06/27/2016 09:37:00 ACT Outpatient COREEN CORMIER APRN [facility] LAB T87.43 [id number] 06/25/2016 10:12:00 ACT Outpatient ABIODUN SOLANO DO [facility] POOR VENOUS ACCESS [id number] 06/05/2016 10:41:00 ACT Outpatient COREEN CORMIER APRN [facility] LAB E11.621 [id number] 05/28/2016 07:33:00 ACT Outpatient ABIODUN SOLANO DO [facility] LAB E11.65,E78.1,E78.0 [id number] 05/24/2016 08:53:00 ACT Outpatient MIKHAIL CARBAJAL MD Via [facility] RAD E11.621,I70.235 [id number] 05/17/2016 09:49:00 ACT Outpatient MIKHAIL CARBAJAL MD Via [facility] LAB E11.621,170.235 [id number] 02/07/2016 09:42:00 ACT Outpatient ABIODUN SOLANO DO Via [facility] LAB GENERAL MEDICAL EXAM,TYPE 2 DIABETES,IRON DEF [id number] 08/18/2015 09:43:00 ACT Outpatient MIKHAIL CARBAJAL MD [facility] RAD DIABETES MELLIOUS WITH FOOT ULCER [id number] 08/15/2015 00:08:00 PEN Preadmit MIKHAIL CARBAJAL MD Via [facility] L FOOT WOUND [id number] 07/05/2015 13:29:00 ACT Outpatient JOE RON DC [facility] RAD LOW BACK PAIN W/ RADIATION INTO R LEG AND HIP [id number] 05/12/2015 10:31:00 ACT Outpatient MIKHAIL CARBAJAL MD [facility] CARD TYPE 2 DIABETES W/FOOT ULCER,CHRONIC ULCER LT HEEL [id number] 04/25/2015 08:52:00 ACT Outpatient KIARRA ESPAÑA DPM Via [facility] PREOP DIABETIC FOOT ULCER LEFT [id number] 03/18/2015 07:50:00 ACT Outpatient FREDDIE BLUM MD [facility] POOR VENOUS ACCESS [id number] 03/15/2015 09:25:00 ACT Outpatient MIKHAIL CARBAJAL MD Via [facility] CARD OSTEOMYLITIS LEFT FOOT [id number] 03/10/2015 10:30:00 ACT Outpatient MIKHAIL CARBAJAL MD Via [facility] LAB TYPE 2 DIABETES MELLITUS WITH FOOT ULCER [id number] 08/20/2014 09:10:00 Document Registration [id number] 08/20/2014 09:10:00 Document Registration [id number] 08/20/2014 09:10:00 Document Registration [id number] 08/20/2014 09:10:00 Document Registration [id number] 06/24/2014 16:36:00 Document Registration [id number] 06/14/2014 07:32:00 Document Registration [id number] 06/08/2014 17:30:00 Document Registration [id number] 06/05/2014 16:29:00 Document Registration [id number] 05/06/2014 10:19:00 ACT Inpatient SOLANO DO, ABIODUN [facility] SURGICAL SWB-LT FOOT GANGRENE, DM , ARF [id number] 01/29/2012 11:21:00 Document Registration [id number] 01/21/2012 12:34:00 Document Registration [id number] 01/18/2012 15:30:00 Document Registration [id number] 11/22/2011 11:35:00 Document Registration [id number] 11/22/2011 10:33:00 Document Registration [id number] 12/20/2010 09:25:00 Document Registration [id number] 08/29/2010 07:28:00 Document Registration [id number] 08/15/2010 11:29:00 Document Registration [id number] 08/14/2010 07:46:00 Document Registration [id number] 11/18/2009 09:22:00 Document Registration [id number] 09/27/2009 10:59:00 Document Registration [id number] 07/04/2009 11:00:00 Document Registration [id number] 06/22/2009 10:00:00 Document Registration [id number] 05/09/2009 11:28:00 Document Registration [id number] 05/02/2009 06:27:00 Document Registration [id number] 04/07/2009 16:00:00 Document Registration [id number] 01/04/2009 10:09:00 Document Registration [id number] 08/07/2005 14:07:00 Document Registration
--- OUTSIDE RECORDS SUMMARY | 2016-07-29 17:33 | XMS REPORT | Clinical Summary ---
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 Ivte Colon Other testicular hypofunction MICROALBUMINURIA 791.0 Resolved Ivet Colon Proteinuria RHABDOMYOLYSIS 728.88 Resolved Ivet Colon Rhabdomyolysis RENAL INSUFFICIENCY 593.9 Active Ivet Colon Unspecified disorder of kidney and ureter SYNCOPE 780.2 Resolved Ivet Colon Syncope and collapse HYPERTENSION 401.1 Active Ivet Colon Benign essential hypertension CAD 414.00 Active Ivet Colon Coronary atherosclerosis of unspecified type of vessel, [place] or graft CORONARY ARTERY BYPASS GRAFT, FOUR VESSEL, 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 Ivet Colon Postsurgical aortocoronary bypass status ACUTE OSTEOMYELITIS INVOLVING ANKLE AND FOOT 730.07 Active 06/10 Ivet Colon Acute osteomyelitis involving ankle and foot Medication List Medication Instructions Start Date Stop Date Generic Name NDC Status Provider Patient Instruction ALPRAZOLAM 0.5 MG TABS 1 PO Q 8RS PRN ANXIETY ALPRAZOLAM 23588760690 No Longer Active Ivet Catherine Colon ZOFRAN 4 MG/5ML SOLN 8mg IV Q6hrs prn nausea ONDANSETRON HCL 16934304742 No Longer Active Ivet Catherine Colon MELATONIN 3 MG TABS 1 PO AT HS MELATONIN 25499796840 No Longer Active Ivet Catherine Colon CHELATED ZINC 50 MG TABS 1 PO daily ZINC 09097839135 Active Ivet Catherine Colon ZYVOX 100 MG/5ML SUSR 600mg IV Q12 hours LINEZOLID 31916532207 No Longer Active Ivet Catherine Colon CELEXA 20 MG TABS 1 PO daily CITALOPRAM HYDROBROMIDE 34279919283 Active Ivet Catherine Colon HUMALOG KWIKPEN 100 UNIT/ML SOPN 35 UNITS SQ BEFORE MEALS INSULIN LISPRO (HUMAN) 19037581908 Active Ivet Catherine Colon LEVOTHYROXINE SODIUM 200 MCG TABS 1 PO Daily LEVOTHYROXINE SODIUM 13938592728 Active Ivet Catherine Colon LEVEMIR FLEXPEN 100 UNIT/ML SOPN 55 UNITS SQ DAILY INSULIN DETEMIR 92119907267 Active Ivet Catherine Colon AMLODIPINE BESYLATE 10 MG TABS 1 PO DAILY AMLODIPINE BESYLATE 16917288711 Active Ivet Catherine Colon HYDROCODONE-ACETAMINOPHEN 10-325 MG TABS 1 PO Q 4 HRS PRN PAIN HYDROCODONE-ACETAMINOPHEN 98027554384 Active Ivet Catherine Colon CYMBALTA 30 MG CPEP 1 PO BID DULOXETINE HCL 49714959583 No Longer Active Ivet Catherine Colon HYDROCODONE-ACETAMINOPHEN 10-325 MG TABS 1 TAB PO BID PRN PAIN HYDROCODONE-ACETAMINOPHEN 36158625489 No Longer Active Ivet Catherine Colon WELLBUTRIN 75 MG TABS 1 PO BID BUPROPION HCL 24226630518 No Longer Active Ivet Catherine Colon NORVASC 5 MG TABS 1 PO DAILY AMLODIPINE BESYLATE 15782958924 No Longer Active Ivet Catherine Colon NOVOLOG FLEXPEN 100 UNIT/ML SOPN 38 UNITS SQ AC PRN MEALS INSULIN ASPART 44312916236 No Longer Active Ivet Catherine Colon NITROSTAT 0.4 MG SUBL SL DAILY PRN CHEST PAIN NITROGLYCERIN 44082369308 Active Ivet Catherine Colon LOVASTATIN 20 MG TABS 1 PO DAILY LOVASTATIN 83610719227 Active Ivet Catherine Colon ISOSORBIDE MONONITRATE ER 60 MG [id number] 1 PO DAILY ISOSORBIDE MONONITRATE 35011168979 Active Ivet Catherine Colon PLAVIX 75 MG TABS 1 PO DAILY CLOPIDOGREL BISULFATE 00366578500 Active Ivet Catherine Colon ASPIRIN 325 MG TABS 1 PO DAILY ASPIRIN 53698334027 Active Ivet Catherine Colon SUCRALFATE 1 GM TABS 1 PO AC HS SUCRALFATE 73605809475 Active Ivet Catherine Colon PROTONIX 40 MG TBEC 1 PO BID PANTOPRAZOLE SODIUM 52265975715 Active Ivet Catherine Colon REGLAN 5 MG TABS 1 PO BID AC MEALS METOCLOPRAMIDE HCL 80132263248 Active Ivet Catherine Colon PROPOXYPHENE N-APAP 100-650 MG TABS 1-2 PO Q4hrs prn pain PROPOXYPHENE N-APAP 35377439859 No Longer Active Ivet Catherine Colon METOPROLOL TARTRATE 50 MG TAB 1 PO daily. METOPROLOL TARTRATE 09177335354 No Longer Active Ivet Catherine Colon PLAVIX 75 MG TABS 1 PO QD CLOPIDOGREL BISULFATE 89838175266 No Longer Active Ivet Catherine Colon ASPIRIN 81 MG TAB 1 PO daily ASPIRIN 36080384208 No Longer Active Ivet Catherine Colon TESTOSTERONE CREAM Apply daily TESTOSTERONE CREAM No Longer Active Ivet Catherine Colon PEN NEEDLES 5/16" 31G X 8 MM MISC as directed INSULIN PEN NEEDLE 30421972888 No Longer Active Ivet Catherine Colon WELLBUTRIN SR 150 MG TBCR 1 PO BID BUPROPION HCL No Longer Active Ivet Catherine Colon PERCOCET 5-325 MG TABS 1-2 PO C8cmtzb prn pain OXYCODONE-ACETAMINOPHEN 16101940450 No Longer Active Ivet Catherine Colon NEURONTIN 100 MG CAPS 1 by mouth 3 times a day GABAPENTIN 94927816654 No Longer Active Ivet Catherine Colon SYNTHROID 150 MCG TABS 1 PO daily on empty stomach LEVOTHYROXINE SODIUM 76630926871 No Longer Active Ivet Catherine Colon LOVASTATIN 40 MG TABS 1 PO daily for cholesterol LOVASTATIN 08050549543 No Longer Active Ivetmalachi Colon LOTENSIN 20 MG TABS 1 PO daily BENAZEPRIL HCL 95008725489 No Longer Active Ivet Catherine Colon HUMULIN 70/30 PEN 70-30 % SUSP 25 units injection BID INSULIN ISOPHANE & REGULAR 66917288199 No Longer Active Ivetmalachi Colon SYNTHROID 25 MCG TABS 1 PO daily along with 200 mcg tablet to equal 225. 2008 LEVOTHYROXINE SODIUM 76847398643 No Longer Active Ivet Catherine Colon MIRALAX POWD 1 scoop in 4oz of water PO daily POLYETHYLENE GLYCOL 3350 85979417110 No Longer Active Ivet Catherine Colon MICRONASE 5 MG TABS 2 PO at noon GLYBURIDE 47931079218 No Longer Active Ivet Colon METFORMIN HCL 500 MG TABS 1 PO BID METFORMIN HCL 05060695667 No Longer Active Ivet Colon NAPROXEN 500 MG TAB 1 PO BID NAPROXEN 72751738341 No Longer Active Ivet Colon Vital Signs [...] % Encounters Code Encounter Date Provider Facility CPT-94239 Ofc Vst, Est Level III 18:08:22 CDT Ivet Colon DO, FACP CPT-73919 Ofc Vst, Est Level III 17:49:50 CDT Ivet Colon DO, FACP CPT-86735 Ofc Vst, Est Level III 15:15:23 CDT Ivet Colon DO, FACP CPT-42167 Ofc Vst, Est Level IV 19:30:59 CDT Ivet Colon DO, FACP CPT-69224 Ofc Vst, Est Level IV 21:01:42 CDT Ivet Colon DO, FACP CPT-08095 Ofc Vst, Est Level V 15:04:05 CONCRETE STONE FABRICATOR Ivet Colon [facility] CPT-60135 Ofc Vst, Est Level V 14:38:30 CDT Ivet Catherine Colon [facility] CPT-17203 Ofc Vst, Est Level V 10:17:56 CDT Ivet Catherine Sadleri León Isaiah DO, FACP CPT-49556 Ofc Vst, Est Level V 15:47:26 CDT Ivet Catherine Colon [facility] CPT-32141 Ofc Vst, Est Level V 16:17:13 CDT Ivet Catherine Colon [facility] CPT-20505 Ofc Vst, Est Level IV 15:47:01 CDT Ivet Catherine Colon [facility] CPT-69572 Ofc Vst, Est Level IV 16:34:42 CONCRETE STONE FABRICATOR Ivet Alexander Isaiah Colon, DO, FACP CPT-43698 Ofc Vst, Est Level IV 15:29:06 CONCRETE STONE FABRICATOR Ivet Alexander Isaiah Colon, DO, FACP CPT-11923 Ofc Vst, Est Level V 15:21:02 CONCRETE STONE FABRICATOR Ivet Catherineviv Colon, DO, FACP CPT-95142 Ofc Vst, Est Level V 14:30:22 CONCRETE STONE FABRICATOR Ivet Alexander Isaiah Colon, DO, FACP CPT-61838 Ofc Vst, New Level II 16:46:35 CDT Ivet Catherine Isaiah [facility] Procedures Code Procedure Name Date Entry Date Standard Description CPT-G0439 Medicare Annual Wellness Visit 15:18:08 CDT
== END 2016-06-27 18:10 | disposition home or self-care (01) ==
LOC: CATH 14:07
PROVIDERS: ATTEND Internal Medicine Cardiovascular Disease
DX: T82.514A Breakdown (mechanical) of infusion catheter, initial encounter (principal); I25.10 Atherosclerotic heart disease of native coronary artery without angina pectoris; E78.5 Hyperlipidemia, unspecified; N18.9 Chronic kidney disease, unspecified; I12.9 Hypertensive chronic kidney disease with stage 1 through stage 4 chronic kidney disease, or unspecified chronic kidney disease; I73.9 Peripheral vascular disease, unspecified; Z91.19 Patient's noncompliance with other medical treatment and regimen; Z72.0 Tobacco use; Z79.899 Other long term (current) drug therapy; Z79.4 Long term (current) use of insulin; Z95.1 Presence of aortocoronary bypass graft
CPT/HCPCS: 36415; 37197; 71010; 80053; 85027; 85610; 85730; 87081; 93005

== ENCOUNTER → 2016-06-27 | Outpatient (CLI) | payer MEDICARE, OTHER ==
[~2016-06-27] MED LIST changes: +AMLO10TA2 PO; +CFTR1PB IV
[2016-06-27 09:58] LABS: BASOPHILS % (AUTO) 0 % (0-10); EOSINOPHILS # (AUTO) 0.4 10^3/uL (0.0-0.3); EOSINOPHILS % (AUTO) 4 % (0-10); LYMPHOCYTES # (AUTO) 1.3 X 10^3 (1.0-4.0); LYMPHOCYTES % (AUTO) 12 % (12-44); MEAN CORPUSCULAR HEMOGLOBIN 30 PG (25-34); MEAN CORPUSCULAR HGB CONC 33 G/DL (32-36); MEAN CORPUSCULAR VOLUME 90 FL (80-99); MEAN PLATELET VOLUME 10.4 FL (7.4-10.4); MONOCYTES # (AUTO) 0.8 X 10^3 (0.0-1.0); MONOCYTES % (AUTO) 7 % (0-12); NEUTROPHILS # (AUTO) 8.2 X 10^3 (1.8-7.8); NEUTROPHILS % (AUTO) 76 % (42-75); PLATELET COUNT 263 10^3/uL (130-400); RED BLOOD COUNT 4.31 10^6/uL (4.35-5.85); RED CELL DISTRIBUTION WIDTH 14.4 % (10.0-14.5); WHITE BLOOD COUNT 10.8 10^3/uL (4.3-11.0)
[2016-06-27 10:24] LABS: CALCIUM 9.7 MG/DL (8.5-10.1); CREATININE SERUM 2.57 MG/DL (0.60-1.30); POTASSIUM 4.4 MMOL/L (3.6-5.0)
== END ==
LOC: LAB 09:37
PROVIDERS: ATTEND Nurse Practitioner
DX: T87.43 Infection of amputation stump, right lower extremity (principal); L97.522 Non-pressure chronic ulcer of other part of left foot with fat layer exposed; E11.621 Type 2 diabetes mellitus with foot ulcer; I70.621 Atherosclerosis of nonbiological bypass graft(s) of the extremities with rest pain, right leg; N18.3 Chronic kidney disease, stage 3 (moderate); I70.235 Atherosclerosis of native arteries of right leg with ulceration of other part of foot
CPT/HCPCS: 36415; 80048; 85025

== ENCOUNTER → 2016-06-27 | Outpatient (CLI) | payer MEDICARE, OTHER ==
[~2016-06-27] VITALS: Ht 177.8 cm; Wt 90.3 kg
[~2016-06-27] MED LIST changes: +HEParin (CATH LAB) 1,000 ML IV ONE; +LIDOCAINE 1% INJ 20 ML (XYLOCAINE) VIAL ONE; +NS IV 1000 ML 1,000 ML IV SCH; +NS IV 1000 ML 1,000 ML ONE
--- NOTE | 2016-06-27 12:43 | Diagnostic Imaging Report ---
Injection with flow to evaluate central venous catheter. INDICATION: Malfunctioning central venous catheter. The patient presented today for evaluation of the patency of the central venous Groshong catheter on the left that was seen on the previous chest exam of 05/30/2016. The attempts to opacify the catheter with contrast were unsuccessful, however. In reviewing the preliminary film, the tip of the catheter now overlies the cardiac silhouette. Consequently, I suspect that the cathter has been interrupted and has migrated into the right ventricle. The overall appearance of the chest is otherwise no different than on the prior exam. No acute abnormality is identified. IMPRESSION: 1. The central venous Groshong catheter on the left has been interrupted and has apparently migrated into the right ventricle of the heart.. CT of the chest would be recommended for further study. 2. These results were discussed with Dr. Clark Chicas at the time of this dictation. CRITICAL FINDING Dictated by: Dictated on workstation # [id number]
--- NOTE | 2016-06-27 13:23 | Diagnostic Imaging Report ---
PROCEDURE: CT chest without contrast. TECHNIQUE: Multiple contiguous axial images were obtained through the chest without the use of intravenous contrast. INDICATION: Evaluate Port-A-Cath. The Port-A-Cath injection performed earlier today was unsuccessful as the catheter distal to the injection site could not be opacified. The chest exam performed prior to the injection did show that the tip of the Groshong catheter was overlying the cardiac silhouette. This did represent a change from the previous chest exam of 05/30/2016, when the tip of the catheter was seen overlying the distal superior vena cava. On this exam it does appear that the catheter has been disrupted and that most of the catheter is coiled on itself in the right ventricle. A portion of the catheter is near the cavoatrial junction. There is no acute cardiopulmonary abnormality identified otherwise. In particular there is no sign of a pneumothorax. The heart size is within normal limits, and there are extensive coronary artery calcifications evident. There are sternotomy wires and surgical clips present as well. The aorta is not abnormally dilated. There is no obvious mediastinal or hilar adenopathy. The thyroid gland is not well visualized but shows no definite abnormality. The sections through the upper abdomen are unremarkable for an acute abnormality. The gallbladder is surgically absent. The bone windows show no sign of a fracture or of a destructive lesion. IMPRESSION: 1. The previously noted Groshong catheter on the left has been disrupted and the catheter is now coiled on itself in the right ventricle. 2. No acute cardiopulmonary abnormality identified. 3. These results were discussed with Dr. Clark Chicas at the time of this dictation. CRITICAL FINDING. Dictated by: Dictated on workstation # [id number]
[2016-06-27 13:42] VITALS: BP 144/91
== END ==
LOC: RAD 11:30
PROVIDERS: ATTEND Surgery
DX: T82.518A Breakdown (mechanical) of other cardiac and vascular devices and implants, initial encounter (principal)
CPT/HCPCS: 36598; 71250

== ENCOUNTER 2016-06-28 10:41 | Inpatient (IN) | payer MEDICARE, OTHER ==
[~2016-06-28] VITALS: Ht 177.8 cm; Wt 87.4 kg
[2016-06-28] MEDS ORDERED: SODIUM CHLORIDE FLUSH 20 ML IV PRN (11:00)
[2016-06-28] MEDS ORDERED: HYDROcodone/APAP 5 MG/325 MG (LORTAB) TAB PO PRN (11:00)
[2016-06-28 13:00] VITALS: BP 136/77
[2016-06-28] MEDS: NS IV 1000 ML 1,000 ML IV SCH (13:50)
[2016-06-28] MEDS ORDERED: VANCOMYCIN INJECTION 750 MG in NS (IVPB) 250 ML IV NR (14:00)
[2016-06-28] MEDS ORDERED: PIPERACILLIN SODIUM/TAZOBACTAM 4.5 GM in NS (IVPB) 100 ML IV NR (14:00)
[2016-06-28] MEDS ORDERED: VANCOMYCIN 2000 MG/NS 500 ML IVPB IV NR ×2 (14:16)
[2016-06-28] MEDS ORDERED: RT-ALBUTEROL/IPRATROPIUM 3 ML (DUONEB) VIAL INH PRN (14:45)
[2016-06-28] MEDS: ONDANSETRON 4 MG/2 ML (SDV) Z0FRAN IVP PRN ×2 (14:50→20:09)
--- NOTE | 2016-06-28 14:50 | Diagnostic Imaging Report ---
INDICATION: PICC line placement. Comparison study: Chest from yesterday. FINDINGS: Portable upright view of the chest demonstrates right arm PICC line with its tip just below the atrial/caval junction by approximately 1 cm. Heart size and vascularity are normal. A 2.7-cm nodule is present in the left upper lobe which was not seen yesterday. This may be extrinsic. IMPRESSION: 1. PICC line tip is just into the right atrium. 2. A 2.7-cm nodule is seen in the left upper lung which was not visible yesterday. This could be extrinsic. It is at the site of the previous catheter and may be a residual hematoma in this area. Dictated by: Dictated on workstation # [id number]
--- NOTE | 2016-06-28 15:01 | Consultation ---
History of Present Illness History of Present Illness Patient Consulted On(sylvie/time) 06/28/16 14:53 Date of Admission History of Present Illness Patient is a 55-year-old male who had a port placed approximately 2 years ago. He states that they had some difficulty accessing it and the port infiltrated. Patient states the port was placed due to poor venous access and he's had 2 other ports. He just had part of his right foot amputated with no complaints. he is alert and oriented x 3. Allergies and Home Medications Allergies Coded Allergies: oxycodone HCl (Unverified Allergy, Unknown, HAS RECEIVED HYDROMORPHONE W/ O ISSUE, 05/21/14) protamine (Unverified Allergy, Unknown, 04/23/14) Home Medications Aspirin 81 Mg Tablet.dr, 81 MG PO DAILY, (Reported) Clopidogrel Bisulfate 75 Mg Tablet, 75 MG PO DAILY, (Reported) Hydrocodone Bit/Acetaminophen 1 Each Tablet, 1 TAB PO QID PRN for MODERATE PAIN, (Reported) Insulin Aspart 100 Unit/1 Ml Insuln.pen, 30-34 UNITS SQ TIDWM, (Reported) Insulin Determir 100 U/Ml Insuln.pen, 34-40 UNIT SQ DAILY, (Reported) Isosorbide Mononitrate 30 Mg Tab.er.24h, 30 MG PO DAILY, (Reported) Levothyroxine Sodium 200 Mcg Tablet, 200 MCG PO DAILY, (Reported) Lovastatin 20 Mg Tablet, 20 MG PO DAILY, (Reported) Nitroglycerin 0.4 Mg Tab.subl, 0.4 MG SL UD PRN for CHEST PAIN, (Reported) [place] 3 Polyunsat Fatty Acids 1,000 Mg Cap, 1,000 MG PO DAILY, (Reported) Sulfamethoxazole/Trimethoprim 1 Each Tablet, 1 TAB PO BID, #14 (Reported) 7 DAY THERAPY FILLED 06-26-16 Past Wynlykb-Awdkbb-Zkhyys Hx Patient Social History Alcohol Use: Denies Use Recreational Drug Use: No Smoking Status: Former Smoker Former Smoker/When Quit: Jun 23, 2012 Type Used: Cigars Recent Foreign Travel: No Contact w/Someone Who Travel: No Recent Infectious Disease Expo: No Recent Hopitalizations: Yes Physical Abuse Screen: No Sexual Abuse: No Immunizations Up To Date Tetanus Booster (TDap): Unknown Seasonal Allergies Seasonal Allergies: No Surgeries HX Surgeries: Yes (BUNIONECTOMY BILAT FEET; LEFT BIG TOE AND ONE NEXT TO IT) Surgeries: CABG, Gallbladder, Vascular Surgery Respiratory Hx Respiratory Disorders: Yes Respiratory Disorders: Sleep Apnea Cardiovascular Hx Cardiac Disorders: Yes Cardiac Disorders: Coronary Artery Disease, Heart Attack, High Cholesterol, Hypertension, Peripheral Vascular Neurological Hx Neurological Disorders: Yes Neurological Disorders: Neuropathy Reproductive System Hx Reproductive Disorders: No Sexually Transmitted Disease: No HIV/AIDS: No Genitourinary Hx Genitourinary Disorders: Yes (WEAK RIGHT KIDNEY - DAMAGE) Genitourinary Disorders: Renal Failure Gastrointestinal Hx Gastrointestinal Disorders: Yes (OCC REFLUX) Gastrointestinal Disorders: Gastroesophageal Reflux Musculoskeletal Hx Musculoskeletal Disorders: Yes Musculoskeletal Disorders: Amputee, Arthritis, Chronic Back Pain Endocrine Hx Endocrine Disorders: Yes Endocrine Disorders: Diabetes, Insulin dep, Hypothyroidsim HEENT HX ENT Disorders: Yes (CATARACTS REMOVED, GLASSES) HEENT Disorders: Cataract Loss of Vision: Left Hearing Impairment: Denies Cancer Hx Cancer: No Psychosocial Hx Psychiatric Problems: Yes Behavioral Health Disorders: Sleep Difficulties Integumentary HX Skin/Integumentary Disorder: Yes (DIABETIC ULCER) Skin/Integumentary Disorders: Recent Skin Changes Blood Transfusions Hx Blood Disorders: No Adverse Reaction to a Blood Tr: No Family Medical History Significant Family History: No Pertinent Family Hx Family Medial History: Alzheimer's disease 19 FATHER BLOOD Cardiovascular disease 19 MOTHER Diabetes mellitus 19 FATHER G8 SISTER FH: blood disorder G8 SISTER (SPECULATION) Hypertension 19 MOTHER Myocardial infarction 19 MOTHER Review of Systems-General Constitutional: no symptoms reported EENTM: no symptoms reported Respiratory: no symptoms reported Cardiovascular: no symptoms reported Gastrointestinal: no symptoms reported Genitourinary: no symptoms reported Musculoskeletal: other (amputation to part of the right foot) Skin: no symptoms reported Psychiatric/Neurological: No Symptoms Reported Physical Exam-General Problems Physical Exam Vital Signs Vital Sign - Last 12Hours 06/28/16 13:00 Temp 99.9 Pulse 111 Resp 24 B/P (MAP) 136/77 Pulse Ox 100 O2 Delivery Room Air Capillary Refill : General Appearance: no apparent distress HEENT: other (nares are patent mouth is moist) Respiratory: chest non-tender, no respiratory distress, no accessory muscle use Cardiovascular: regular rate, rhythm Gastrointestinal: non tender, soft Extremities: other ( part of his right foot amputated-) Neurologic/Psychiatric: alert, normal mood/affect, oriented x 3 Skin: normal color, warm/dry Data Review Radiology NAME: EMILIO TELLEZ [facility] REC#: [id number] PT STATUS: ADM IN : 1960 PHYSICIAN: ABIODUN SOLANO DO ADMIT DATE: 06/28/16 Draft Date of Exam:06/28/16 CHEST 1 VIEW, AP/PA ONLY INDICATION: PICC line placement. Comparison study: Chest from yesterday. FINDINGS: Portable upright view of the chest demonstrates right arm PICC line with its tip just below the atrial/caval junction by approximately 1 cm. Heart size and vascularity are normal. A 2.7-cm nodule is present in the left upper lobe which was not seen yesterday. This may be extrinsic. Recommend followup film. IMPRESSION: 1. PICC line tip is just into the right atrium. 2. A 2.7-cm nodule is seen in the left upper lung which was not visible yesterday. This could be extrinsic. It is at the site of the previous catheter and may be a residual hematoma in this area. Dictated on workstation # [id number] Dict: 06/28/16 1444 Trans: 06/28/16 1450 [id number] Interpreted by: AMARJIT CH MD Electronically signed by: Assessment/Plan Assessment/Plan Assessment/Plan Malfunctioning Port. To remove port tomorrow. PICC Line today. NPO @ midnight. Consent ordered. Continue Picc Line for access. Once cleared by cardiology, we will put a new PowerPort in. [place]- Patient with port that catheter was transected and retrieved by Dr. Roy yesterday. Patient feeling ill and was seen in wound care who had him admitted. Patient with wounds to b/l feet he states. Patient still with port in left chest without the catheter. Patient Has had PICC line placed today for access. Patient needs port out. general laying in bed heart reg lungs nonlabored port left chest b/l lower extremities wrapped Discussed with Dr. Solano who is okay with proceeding with port removal. He has access with PICC line and discussed port placement in near future when can hold ASA and Plavix. Patient understands risks and benefits of port removal and wishes to proceed tomorrow. malfunctioning port Clinical Quality Measures DVT/VTE Risk/Contraindication: Risk Factor Score Per Nursin RFS Level Per Nursing on Admit: 2=Moderate Contraindications-Pharm: Other *list below* Contraindications-Mechi: Other *list below* Other: needs surgery and lower ext infections HEMA POMPA CLAY CASTER Jun 28, 2016 15:01 LEIGH ANN FUCHS DO Jun 28, 2016 15:51
--- NOTE | 2016-06-28 15:13 | Consultation-Cardiology ---
HPI-Cardiology Cardiology Consultation Date of Consultation 06/28/16 Date of Admission Indication: infected wound BLE HPI Patient is a 55 y/o male well known to our services with history of extensive PVD. Patient has been seen in wound care for BLE non healing wounds. Recently underwent right foot toe amputation. Patient now complaining of wound to left foot. Began having some generalized fatigue and weakness and well as nausea this morning. Patient reports to me he was worried he was becoming septic. Denies any CP, dyspnea, dizziness or syncope. Underwent angiogram yesterday for removal of fractured port-a-cath lead into the right atrium and right ventricle. States groin is soft and doing well. No other complaints at this time. Mr. Valera is a 55-year-old gentleman with extensive history, has been seen over this week multiple time for multiple reasons. Referred him for evaluation for his wound which appear to be infected, admitted for worsening infection and starting IV antibiotic. Patient had extensive peripheral arterial disease that require angiogram but he is in worsening renal failure at this time. He denied any chest pain but complaining of generalized fatigue and loss of energy. Home Medications & Allergies Allergies: Coded Allergies: oxycodone HCl (Unverified Allergy, Unknown, HAS RECEIVED HYDROMORPHONE W/ O ISSUE, 05/21/14) protamine (Unverified Allergy, Unknown, 04/23/14) Home Medication List Reviewed: Yes AYS-Tiywtr-Hatamc Hx Patient Social History Alcohol Use: Denies Use Recreational Drug Use: No Smoking Status: Former Smoker Former smoker/When Quit: Jun 23, 2012 Type Used: Cigars Recent Foreign Travel: No Recent Infectious Disease Expo: No Recent Hopitalizations: Yes Physical Abuse Screen: No Sexual Abuse: No Immunizations Up To Date Tetanus Booster (TDap): Unknown Past Medical History CAD, PVD, CRI, HTN Family Medical History Family History: Alzheimer's disease 19 FATHER BLOOD Cardiovascular disease 19 MOTHER Diabetes mellitus 19 FATHER G8 SISTER FH: blood disorder G8 SISTER (SPECULATION) Hypertension 19 MOTHER Myocardial infarction 19 MOTHER Constitutional: chills, diaphoresis, No dizziness, No fever, malaise, weakness EENTM: No blurred vision, No double vision Respiratory: No cough, No dyspnea on exertion Cardiovascular: No chest pain, edema, No palpitations Genitourinary: No dysuria, No frequency Musculoskeletal: No back pain Skin: other (left foot with non healing wound, Right foot s/p toe amputation, dressing W/D/I) Psychiatric/Neurological: Denies Anxiety, Denies Depressed Physical Exam Vital Signs Vital Sign - Last 12Hours 06/28/16 13:00 Temp 99.9 Pulse 111 Resp 24 B/P (MAP) 136/77 Pulse Ox 100 O2 Delivery Room Air Capillary Refill : General Appearance: No Apparent Distress, WD/WN, Anxious HEENT: PERRL/EOMI, Normal ENT Inspection Neck: Non Tender, Supple Respiratory: Chest Non Tender, Lungs Clear, Normal Breath Sounds, No Accessory Muscle Use, No Respiratory Distress Cardiovascular: Regular Rate, Rhythm, No JVD, No Murmur, Other (trace edema BLE ) Gastrointestinal: Non Tender, Soft Rectal: Deferred Back: No CVA Tenderness Extremity: Non Tender, No Calf Tenderness Neurologic/Psychiatric: Alert, Oriented x3, 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 LLE wound continues to be nonhealing. Continue on IV antibiotics. Planning for peripheral angiogram as discussed below. Admitted and started on IV antibiotics. Continue to monitor closely. Generalized fatigue and loss of energy, questionable underlying early sepsis. Managed by primary care physician. Started on antibiotics. Coronary artery disease, history of CABG 4 in 2008 with cardiac catheterization June 02, [address] Arvizu revealing severe three-vessel [place] coronary artery disease with non-bypassed RCA, patent OSBORNE to LAD, patent vein graft to first diag, patent vein graft to first OM. There was occluded jump graft to the second obtuse marginal branch with successful PCI using bare-metal vision stent 3.0 x 28 mm to the second OM. At that time was reported patient staged intervention to the right and third OM branch after gallbladder removal by Dr. Arvizu, had stress test done at [facility] within then and no further intervention was made. Patient was to be scheduled for [facility] with intervention after healing of Left foot ulcer, however, patient did not follow up, Cardiac catheterization was carried out by Dr. Busch in January 2015 and reported as patent OSBORNE to the LAD vein graft to the diagonal artery and vein graft to the obtuse marginal artery, small vessel disease distally, the right coronary artery has severe diffuse disease, Dr. Busch felt that it is high risk for intervention at this time, medical therapy is recommended. Patient will require significant amount of stenting with limited benefit. I will continue on current medications and monitor Significant peripheral arterial disease, multiple intervention by Dr. Beebe in the past. Extensive workup in the past, last angiogram was done on May 30, 2016 which showed on the right side subtotal occlusion of the anterior tibial artery, severe disease at the posterior tibial and peroneal artery and distal popliteal artery successful balloon angioplasty to the anterior tibial artery using 2.0 then 3.0 balloon with excellent results, balloon angioplasty to the popliteal artery using Lutonix 4.018 mm with excellent results. Patient has stent extending throughout the left SFA down to the popliteal and common femoral artery, good flow, at the trifurcation there is occlusion of stents in the anterior tibial artery, the posterior tibial artery and peroneal arteries were occluded. Planning to proceed with angiogram with intervention once his kidney functions are better. Fractured port s/p angio with retrieval of fractured lead done yesterday. Groin is healing well. Dr. Chicas planning for port removal tomorrow. Chest pain, atypical, improved significantly since starting Imdur. Hypertension,restart home blood pressure medication and continue to monitor. Hyperlipidemia, continue to monitor. Diabetes mellitus, followed and monitored by primary care physician. Chronic renal insufficiency, start patient on IVF's and continue to monitor renal function. Tobaccoism, occasional smoking, educated on avoiding any tobacco product. Mild bilateral nonobstructive carotid artery stenosis, last carotid ultrasound was done June 26, 2016, continue to monitor. History of Noncompliance with medications, educated about compliance with medication. Thank you for allowing us to participate in the management of Mr. Valera. This is Alma Balderrama PA-C as a scribe for Dr. Roy. This is Dr. Roy, I have seen and evaluated Mr. Valera with Alma, interviewed the patient perform physical examination. I agree with the current scribe, he is a 55-year-old gentleman with extensive peripheral arterial disease and coronary artery disease, had amputation of his right toes. Had angiogram and angioplasty done to the right lower except he, he was taking him for the left lower extremity, having infected wound on the left leg at this time , seen by Dr. Borden and admitted for IV antibiotic. He has worsening renal function, I performed a procedure yesterday with retrieval of broken Port-A- Cath without complications. I will continue on IV fluid, restart his home medication monitor him closely. The port will be removed tomorrow by Dr. Chicas. I reviewed the note and made a few minor modifications and used Italic Font Clinical Quality Measures DVT/VTE Risk/Contraindication: Risk Factor Score Per Nursin RFS Level Per Nursing on Admit: 2=Moderate Contraindications-Pharm: Other *list below* Contraindications-Mechi: Other *list below* Other: needs surgery and lower ext infections ALMA GRANDE Jun 28, 2016 15:13 JORDEN ROY MD Jun 28, 2016 15:38
[2016-06-28 15:35] VITALS: BP 136/71
[2016-06-28 15:46] LABS: BASOPHILS % (AUTO) 0 % (0-10); EOSINOPHILS # (AUTO) 0.1 10^3/uL (0.0-0.3); EOSINOPHILS % (AUTO) 2 % (0-10); LYMPHOCYTES # (AUTO) 0.7 X 10^3 (1.0-4.0); LYMPHOCYTES % (AUTO) 9 % (12-44); MEAN CORPUSCULAR HEMOGLOBIN 30 PG (25-34); MEAN CORPUSCULAR HGB CONC 34 G/DL (32-36); MEAN CORPUSCULAR VOLUME 88 FL (80-99); MEAN PLATELET VOLUME 10.7 FL (7.4-10.4); MONOCYTES # (AUTO) 0.6 X 10^3 (0.0-1.0); MONOCYTES % (AUTO) 7 % (0-12); NEUTROPHILS # (AUTO) 6.8 X 10^3 (1.8-7.8); NEUTROPHILS % (AUTO) 83 % (42-75); PLATELET COUNT 167 10^3/uL (130-400); RED BLOOD COUNT 3.63 10^6/uL (4.35-5.85); WHITE BLOOD COUNT 8.1 10^3/uL (4.3-11.0)
[2016-06-28 16:05] LABS: BILIRUBIN,TOTAL 0.6 MG/DL (0.1-1.0); CALCIUM 8.6 MG/DL (8.5-10.1); CREATININE SERUM 2.37 MG/DL (0.60-1.30); POTASSIUM 4.3 MMOL/L (3.6-5.0); TOTAL PROTEIN 6.2 G/DL (6.4-8.2)
[2016-06-28] MEDS: SIMvastatin 10 MG (ZOCOR) TAB PO SCH (20:08)
[2016-06-28] MEDS: PIPERACILLIN SODIUM/TAZOBACTAM 4.5 GM in NS (IVPB) 100 ML IV SCH (20:08)
[2016-06-28 20:35] VITALS: BP 163/85
[2016-06-29] VITALS (7 sets, daily range): BP systolic 130–189; BP diastolic 65–81
[2016-06-29] MEDS: NS IV 1000 ML 1,000 ML IV SCH ×4 (00:35→21:24)
[2016-06-29] MEDS: ONDANSETRON 4 MG/2 ML (SDV) Z0FRAN IVP PRN ×2 (00:35→18:02)
[2016-06-29] MEDS: fentaNYL INJECTION 100 MCG/2 ML AMP IVP PRN ×3 (00:37→23:24)
[2016-06-29] MEDS: PIPERACILLIN SODIUM/TAZOBACTAM 4.5 GM in NS (IVPB) 100 ML IV SCH ×3 (04:26→21:23)
[2016-06-29] MEDS: OMEGA 3 (FISH OIL) 1000 MG CAP PO SCH (04:46)
[2016-06-29 04:49] LABS: BASOPHILS % (AUTO) 0 % (0-10); EOSINOPHILS # (AUTO) 0.5 10^3/uL (0.0-0.3); EOSINOPHILS % (AUTO) 6 % (0-10); LYMPHOCYTES # (AUTO) 0.7 X 10^3 (1.0-4.0); LYMPHOCYTES % (AUTO) 9 % (12-44); MEAN CORPUSCULAR HEMOGLOBIN 30 PG (25-34); MEAN CORPUSCULAR HGB CONC 34 G/DL (32-36); MEAN CORPUSCULAR VOLUME 89 FL (80-99); MEAN PLATELET VOLUME 11.3 FL (7.4-10.4); MONOCYTES # (AUTO) 0.6 X 10^3 (0.0-1.0); MONOCYTES % (AUTO) 7 % (0-12); NEUTROPHILS # (AUTO) 6.1 X 10^3 (1.8-7.8); NEUTROPHILS % (AUTO) 78 % (42-75); PLATELET COUNT 150 10^3/uL (130-400); RED BLOOD COUNT 3.48 10^6/uL (4.35-5.85); RED CELL DISTRIBUTION WIDTH 14.1 % (10.0-14.5); WHITE BLOOD COUNT 7.8 10^3/uL (4.3-11.0)
[2016-06-29 05:07] LABS: ALBUMIN 2.7 G/DL (3.2-4.5); BILIRUBIN,TOTAL 0.6 MG/DL (0.1-1.0); CALCIUM 8.3 MG/DL (8.5-10.1); CREATININE SERUM 2.13 MG/DL (0.60-1.30); POTASSIUM 4.4 MMOL/L (3.6-5.0); TOTAL PROTEIN 5.9 G/DL (6.4-8.2)
[2016-06-29] MEDS: ISOSORBIDE MONONITRATE 30 MG (IMDUR) TAB PO SCH (08:16)
--- NOTE | 2016-06-29 08:24 | Progress Note-Pre Operative ---
Pre-Operative Progress Note H&P Reviewed The H&P was reviewed, patient examined and no changes noted. Date H&P Reviewed: Jun 29, 2016 Time H&P Reviewed: 08:24 Pre-Operative Diagnosis: malfunctioning port LEIGH ANN FUCHS DO Jun 29, 2016 8:24 am
[2016-06-29] MEDS ORDERED: BUPIVACAINE 0.5% 30 ML (SENSORCAINE) VIAL ONE (08:37)
[2016-06-29] MEDS ORDERED: LIDOCAINE 1% INJ 20 ML (XYLOCAINE) VIAL ONE (08:37)
[2016-06-29] MEDS ORDERED: MIDAZOLAM 2 MG/2 ML (VERSED) VIAL ONE (08:39)
[2016-06-29] MEDS ORDERED: proPOfol 200 MG/20 ML (DIPRIVAN) VIAL IV ONE (08:39)
[2016-06-29] MEDS ORDERED: fentaNYL INJECTION 100 MCG/2 ML AMP ONE (08:48)
[2016-06-29] MEDS ORDERED: ceFAZolin 1,000 MG (ANCEF) VIAL ONE (08:58)
[2016-06-29] MEDS ORDERED: LACTATED RINGERS 1,000 ML IV PRN (09:04)
[2016-06-29] MEDS ORDERED: ceFAZolin 2 GM/50 ML NS 50 ML IV ONE (09:15)
--- NOTE | 2016-06-29 10:05 | History & Physical-Hospitalist ---
HPI History of Present Illness: HPI/Chief Complaint CC: Foot infection HPI: This is a 55yoWM clinic pt of mine with hx of CAD previous bypass, PVD, CRI that presents to hospital as a direct admit for wound care. Pt with multiple DM foot wounds in need of IV ABX so placed on Zosyn and Vanc and Dr. Roy is attempting to revascularize on Saturday. 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 Pt had port removed today. PICC line has been placed. Scribed by Keaton Hawley under the direct supervision of Dr. Colon. Source: patient Date Seen 06/29/16 Attending Physician Ivet Colon DO PCP Ivet Colon DO Referring Physician Date of Admission Jun 28, 2016 at 13:05 Home Medications & Allergies Home Medications Reviewed patient Home Medication Reconciliation Form Allergies Allergies Coded Allergies oxycodone HCl (Unverified Allergy, Unknown, HAS RECEIVED HYDROMORPHONE W/O ISSUE, 05/21/14) protamine (Unverified Allergy, Unknown, 04/23/14) Past Kvzyigj-Kwuzym-Tqfvcu Hx Patient Social History Marrital Status: single Employed/Student: unemployed Alcohol Use: Denies Use Recreational Drug Use: No Smoking Status: Former Smoker Former smoker/When Quit: Jun 23, 2012 Type Used: Cigars Physical Abuse Screen: No Sexual Abuse: No Recent Foreign Travel: No Contact w/other who traveled: No Recent Hopitalizations: Yes Recent Infectious Disease Expo: No Immunizations Up To Date Tetanus Booster (TDap): Unknown Seasonal Allergies Seasonal Allergies: No Surgeries HX Surgeries: Yes (BUNIONECTOMY BILAT FEET; LEFT BIG TOE AND ONE NEXT TO IT) Surgeries: CABG, Gallbladder, Vascular Surgery Respiratory Hx Respiratory Disorders: Yes Respiratory Disorders: COPD Cardiovascular Hx Cardiovascular Disorders: Yes Cardiac Disorders: Coronary Artery Disease, Heart Attack, High Cholesterol, Hypertension, Peripheral Vascular Neurological Hx Neurological Disorders: Yes Neurological Disorders: Neuropathy Reproductive System Hx Reproductive Disorders: No Sexually Transmitted Disease: No HIV/AIDS: No Genitourinary Hx Genitourinary Disorders: Yes (WEAK RIGHT KIDNEY - DAMAGE) Genitourinary Disorders: Renal Failure Gastrointestinal Hx Gastrointestinal Disorders: Yes (OCC REFLUX) Gastrointestinal Disorders: Gastroesophageal Reflux Musculoskeletal Hx Musculoskeletal Disorders: Yes Musculoskeletal Disorders: Amputee, Arthritis, Chronic Back Pain Endocrine Hx Endocrine Disorders: Yes Endocrine Disorders: Diabetes, Insulin dep, Hypothyroidsim HEENT HX ENT Disorders: Yes (CATARACTS REMOVED, GLASSES) HEENT Disorders: Cataract Loss of Vision: Left Hearing Impairment: Denies Cancer Hx Cancer: No Psychosocial Hx Psychiatric Problems: Yes Behavioral Health Disorders: Sleep Difficulties Integumentary HX Skin/Integumentary Disorder: Yes (DIABETIC ULCER) Skin/Integumentary Disorders: Recent Skin Changes Blood Transfusions Hx Blood Disorders: No Adverse Reaction to a Blood Tr: No Family Medical History Significant Family History: No Pertinent Family Hx Family Hx: Alzheimer's disease 19 FATHER BLOOD Cardiovascular disease 19 MOTHER Diabetes mellitus 19 FATHER G8 SISTER FH: blood disorder G8 SISTER (SPECULATION) Hypertension 19 MOTHER Myocardial infarction 19 MOTHER Review of Systems Constitutional: see HPI, chills, dizziness, fever, weakness EENTM: no symptoms reported Respiratory: no symptoms reported Cardiovascular: no symptoms reported Gastrointestinal: no symptoms reported Genitourinary: no symptoms reported Skin: see HPI Psychiatric/Neurological: No Symptoms Reported All Other Systems Reviewed Negative Unless Noted: Yes Physical Exam Physical Exam Vital Signs Vital Sign - Last 12Hours 06/28/16 13:00 Temp 99.9 Pulse 111 Resp 24 B/P (MAP) 136/77 Pulse Ox 100 O2 Delivery Room Air Capillary Refill : General Appearance: No Apparent Distress, WD/WN, Chronically ill Eyes: Bilateral Eye Normal Inspection, Bilateral Eye PERRL HEENT: PERRL/EOMI, Normal ENT Inspection, Pharynx Normal Neck: Full Range of Motion, Normal Inspection, Non Tender, Supple, Carotid Bruit Respiratory: Chest Non Tender, Lungs Clear, Normal Breath Sounds, No Accessory Muscle Use, No Respiratory Distress Cardiovascular: Regular Rate, Rhythm, No Edema, No Gallop, No JVD, No Murmur, Normal Peripheral Pulses Gastrointestinal: Normal Bowel Sounds, No Organomegaly, No Pulsatile Mass, Non Tender, Soft Back: Normal Inspection, No CVA Tenderness, No Vertebral Tenderness Extremity: Normal Capillary Refill, Normal Inspection, Normal Range of Motion, Non Tender, No Calf Tenderness, No Pedal Edema, Other (right metatarsal amputation and left toe amputation x 2) Neurologic/Psychiatric: Alert, Oriented x3, No Motor/Sensory Deficits, Normal Mood/Affect Skin: Normal Color, Warm/Dry Lymphatic: No Adenopathy Results Results/Procedures Lab Laboratory Tests 06/28/16 15:28 06/29/16 04:35 Assessment/Plan Admission Diagnosis Assessment: Bilateral diabetic foot infections likely osteomyelitis may need amputation versus revascularization to attempt wound care Diabetes mellitus insulin-dependent CAD previous bypass Peripheral vascular disease severe Previous and current smoker stops periodically Hypertension Hyperlipidemia Chronic pain Chronic renal insufficiency Assessment and Plan Plan: PICC conveyor line battery charger IV antibiotics empiric treatment Revascularize on Saturday per Dr. Roy Monitor creatinine monitor sugars Clinical Quality Measures DVT/VTE Risk/Contraindication: Risk Factor Score Per Nursin RFS Level Per Nursing on Admit: 2=Moderate Contraindications-Pharm: Other *list below* Contraindications-Mechi: Other *list below* Other: needs surgery and lower ext infections IVET COLON DO Jun 29, 2016 10:05
--- NOTE | 2016-06-29 10:14 | Cardiology Progress Note ---
Subjective Subjective/Events-last exam patient is laying down in bed, feeling better today. No chest pain. Review of Systems General: No Chills, No Night Sweats, No Fatigue, No Malaise, No Appetite, No Other HEENT: No Head Aches, No Visual Changes, No Eye Pain, No Ear Pain, No Dysphasia , No Sinus Congestion, No Post Nasal Drip, No Sore Throat, No Other Pulmonary: No Dyspnea, No Cough, No Pleuritic Chest Pain, No Other Cardiovascular: No: Chest Pain, Edema, Lt Headedness, Orthopnea, Other, Palpitations, Paroxysmal Noc. Dyspnea Objective-Cardiology Exam Last Set of Vital Signs Vital Signs 06/29/16 08:00 Temp 99.5 Pulse 77 Resp 20 B/P (MAP) 189/76 Pulse Ox 96 O2 Delivery Room Air Capillary Refill : I&O Bad tableGeneral: Alert, Oriented X3, Cooperative HEENT: Atraumatic, PERRLA Neck: Supple, No JVD, No Thyromegaly Lungs: Clear to Auscultation, Normal Air Movement Heart: Regular Rate, Normal S1, Normal S2, Other Abdomen: Normal Bowel Sounds, Soft, No Tenderness, No Hepatosplenomegaly, No Masses Extremities: Other (erythema and ulcer on the left foot, right foot is covered , had recent amputation.) Skin: Other (ulcers on the legs) Neuro: Normal Speech, Normal Tone, Sensation Intact Psych/Mental Status: Mental Status NL, Mood NL Results Lab Laboratory Tests 06/28/16 15:28 06/29/16 04:35 A/P-Cardiology Admission Diagnosis Nonhealing wound BLE PVD CAD HTN Assessment/Plan Nonhealing wound BLE- s/p recent toe amputation to RLE with erythema and drainage to incision site. LLE wound continues to be nonhealing. Continue on IV antibiotics. Planning for peripheral angiogram Generalized fatigue and loss of energy, questionable underlying early sepsis. Managed by primary care physician. Coronary artery disease, history of CABG 4 in 2008 with cardiac catheterization June 02, [address] Arvizu revealing severe three-vessel [place] coronary artery disease with non-bypassed RCA, patent OSBORNE to LAD, patent vein graft to first diag, patent vein graft to first OM. There was occluded jump graft to the second obtuse marginal branch with successful PCI using bare-metal vision stent 3.0 x 28 mm to the second OM. At that time was reported patient staged intervention to the right and third OM branch after gallbladder removal by Dr. Arvizu, had stress test done at [facility] within then and no further intervention was made. Patient was to be scheduled for [facility] with intervention after healing of Left foot ulcer, however, patient did not follow up, Cardiac catheterization was carried out by Dr. Busch in January 2015 and reported as patent OSBORNE to the LAD vein graft to the diagonal artery and vein graft to the obtuse marginal artery, small vessel disease distally, the right coronary artery has severe diffuse disease, Dr. Busch felt that it is high risk for intervention at this time, medical therapy is recommended. Patient will require significant amount of stenting with limited benefit. I will continue on current medications and monitor Significant peripheral arterial disease, multiple intervention by Dr. Beebe in the past. Extensive workup in the past, last angiogram was done on May 30, 2016 which showed on the right side subtotal occlusion of the anterior tibial artery, severe disease at the posterior tibial and peroneal artery and distal popliteal artery successful balloon angioplasty to the anterior tibial artery using 2.0 then 3.0 balloon with excellent results, balloon angioplasty to the popliteal artery using Lutonix 4.018 mm with excellent results. Patient has stent extending throughout the left SFA down to the popliteal and common femoral artery, good flow, at the trifurcation there is occlusion of stents in the anterior tibial artery, the posterior tibial artery and peroneal arteries were occluded. Planning to proceed with angiogram with intervention once his kidney functions are better. Fractured port s/p angio with retrieval of fractured lead done yesterday. Groin is healing well. Dr. Chicas planning for port removal tomorrow. Chest pain, atypical, improved significantly since starting Imdur. Hypertension,restart home blood pressure medication and continue to monitor. Hyperlipidemia, continue to monitor. Diabetes mellitus, followed and monitored by primary care physician. Chronic renal insufficiency, start patient on IVF's and continue to monitor renal function. Tobaccoism, occasional smoking, educated on avoiding any tobacco product. Mild bilateral nonobstructive carotid artery stenosis, last carotid ultrasound was done June 26, 2016, continue to monitor. History of Noncompliance with medications, educated about compliance with medication. Clinical Quality Measures DVT/VTE Risk/Contraindication: Risk Factor Score Per Nursin RFS Level Per Nursing on Admit: 2=Moderate Contraindications-Pharm: Other *list below* Contraindications-Mechi: Other *list below* Other: needs surgery and lower ext infections JORDEN GREER MD Jun 29, 2016 10:14
[2016-06-29] MEDS: ASPIRIN E.C. 81 MG (ECOTRIN) TAB PO SCH (10:23)
[2016-06-29] MEDS: CLOPIDOGREL 75 MG (PLAVIX) TABLET PO SCH (10:23)
--- NOTE | 2016-06-29 10:43 | Progress Note-Post Operative ---
Post-Operative Progess Note Surgeon (s)/Top Cutter (s) Surgeon LEIGH ANN FUCHS DO Top Cutter: 0 Pre-Operative Diagnosis malfunctioning port Post-Operative Diagnosis same Post-Op Procedure Note Date of Procedure: Jun 29, 2016 Name of Procedure Performed: port removal Description of the Procedure: see note Findings of the Procedure see note Anesthesia Type mac c local Estimated blood loss (mL): minimal Specimen(s) collected/removed 0 LEIHG ANN FUCHS DO Jun 29, 2016 10:43 am
[2016-06-29] MEDS ORDERED: NITROGLYCERIN SUBLINGUAL 0.4 MG TAB (NITROSTAT) SL PRN (12:00)
[2016-06-29] MEDS ORDERED: TROUGH ORDER-PHARMACY XX NR (13:00)
[2016-06-29] MEDS: ACETAMINOPHEN 325 MG TABLET/CAPLET (TYLENOL) PO PRN ×2 (13:48→18:04)
--- NOTE | 2016-06-29 13:56 | OPERATIVE REPORT ---
PROCEDURE PHYSICIAN: LEIGH ANN CHICAS DATE OF PROCEDURE: 06/29/2016 PREOPERATIVE DIAGNOSIS: Malfunctioning port. POSTOPERATIVE DIAGNOSIS: Malfunctioning port. PROCEDURE: Port removal. SURGEON: Dr. Chicas ANESTHESIA: MAC with local, 0.5% Marcaine and 1% lidocaine at 50:50 ratio total of 7 mL ESTIMATED BLOOD LOSS: Minimal. COMPLICATIONS: None. INDICATIONS: The patient is a 55-year-old male whose port malfunctioned. The catheter had broken off, which had to be retrieved by Dr. Roy of cardiology. The patient was explained risk and benefits of having the port removed. He understood risks and benefits and wished to proceed with the procedure. Consent was signed on the chart. PROCEDURE: The patient was taken to the operating suite. He was prepped and draped in sterile fashion. A surgical pause was performed. A number 15 blade scalpel was used to make a skin incision after local anesthetic was infiltrated into the area. Cautery was used to dissect down to the port which was dissected around, grasped and removed. The wound was then irrigated with copious amounts of irrigation. The subcutaneous tissues were then reapproximated using 3-0 Vicryl. The skin was then closed using Dermabond. The patient tolerated the procedure well without any complications. He was taken to recovery room in stable condition. Job ID: [id number] Dictated Date: 06/29/2016 10:41:46 Aerospace Engineer Officer Armament Date: 06/29/2016 13:52:14 / cristina
[2016-06-29] MEDS: VANCOMYCIN INJECTION 1,250 MG in NS (IVPB) 250 ML IV SCH (14:29)
[2016-06-29] MEDS: inSUlin ASPART (NovoLOG) 1 UNIT/0.01 ML (CHARGE PER UNIT) SC SCH ×2 (15:48→21:21)
[2016-06-29] MEDS: HYDROcodone/APAP 10 MG/325 MG (LORTAB) TAB PO PRN (17:07)
[2016-06-29] MEDS: SIMvastatin 10 MG (ZOCOR) TAB PO SCH (21:22)
[2016-06-30] MEDS: ONDANSETRON 4 MG/2 ML (SDV) Z0FRAN IVP PRN ×2 (02:17→06:10)
[2016-06-30 04:00] VITALS: BP 162/90
[2016-06-30] MEDS: PIPERACILLIN SODIUM/TAZOBACTAM 4.5 GM in NS (IVPB) 100 ML IV SCH ×3 (04:35→20:46)
[2016-06-30] MEDS: NS IV 1000 ML 1,000 ML IV SCH ×4 (06:31→23:34)
[2016-06-30 07:50] VITALS: BP 158/72
[2016-06-30 08:32] LABS: ALBUMIN 2.7 G/DL (3.2-4.5); BILIRUBIN,TOTAL 0.6 MG/DL (0.1-1.0); CALCIUM 8.1 MG/DL (8.5-10.1); CREATININE SERUM 1.95 MG/DL (0.60-1.30); POTASSIUM 3.7 MMOL/L (3.6-5.0); TOTAL PROTEIN 5.9 G/DL (6.4-8.2)
[2016-06-30] MEDS ORDERED: LEVOTHYROXINE SODIUM 200 MCG PO SCH (09:00)
[2016-06-30] MEDS: OMEGA 3 (FISH OIL) 1000 MG CAP PO SCH (10:32)
[2016-06-30] MEDS: ASPIRIN E.C. 81 MG (ECOTRIN) TAB PO SCH (10:32)
[2016-06-30] MEDS: LEVOTHYROXINE 100 MCG (LEVOTHROID) TAB PO SCH (10:32)
[2016-06-30] MEDS: CLOPIDOGREL 75 MG (PLAVIX) TABLET PO SCH (10:33)
[2016-06-30] MEDS: ISOSORBIDE MONONITRATE 30 MG (IMDUR) TAB PO SCH (10:33)
[2016-06-30] MEDS: inSUlin ASPART (NovoLOG) 1 UNIT/0.01 ML (CHARGE PER UNIT) SC SCH ×3 (10:33→21:17)
--- NOTE | 2016-06-30 11:48 | Anesthesia-General Post-Op ---
MAC Patient Condition Mental Status/LOC: Same as Preop Cardiovascular: Satisfactory Nausea/Vomiting: Absent Respiratory: Satisfactory Pain: Controlled Complications: Absent Post Op Complications Complications None Follow Up Care/Instructions Patient Instructions None needed. Anesthesiology Discharge Order Discharge Order Patient is doing well, no complaints, stable vital signs, no apparent adverse anesthesia problems. No complications reported per nursing. POLINA PELRA CRNA Jun 30, 2016 11:48
[2016-06-30 12:00] VITALS: BP 119/70
--- NOTE | 2016-06-30 12:02 | Cardiology Progress Note ---
Subjective Subjective/Events-last exam patient is laying down in bed, denied any chest pain or shortness of breath. Reporting improvement, fever is down. Review of Systems HEENT: No Head Aches, No Visual Changes, No Eye Pain, No Ear Pain, No Dysphasia , No Sinus Congestion, No Post Nasal Drip, No Sore Throat, No Other Pulmonary: Dyspnea, No Cough, No Pleuritic Chest Pain, No Other Cardiovascular: No: Chest Pain, Edema, Lt Headedness, Orthopnea, Other, Palpitations, Paroxysmal Noc. Dyspnea Objective-Cardiology Exam Last Set of Vital Signs Vital Signs 06/30/16 06/30/16 07:50 09:00 Temp 98.1 Pulse 80 Resp 14 B/P (MAP) 158/72 Pulse Ox 95 O2 Delivery Room Air Capillary Refill : I&O Intake and Output 06/30/16 00:00 Intake Total 4852.5 ml Output Total 550 ml Balance 4302.5 ml Intake Oral 840 ml IV Total 4012.5 ml Output Urine Total 550 ml # Voids 5 General: Alert, Oriented X3, Cooperative HEENT: Atraumatic, PERRLA Neck: Supple, No JVD, No Thyromegaly Lungs: Clear to Auscultation, Normal Air Movement Heart: Regular Rate, Normal S1, Normal S2, Other Abdomen: Normal Bowel Sounds, Soft, No Tenderness, No Hepatosplenomegaly, No Masses Extremities: Other (erythema and ulcer on the left foot, right foot is covered , had recent amputation.) Skin: Other (ulcers on the legs) Neuro: Normal Speech, Normal Tone, Sensation Intact Psych/Mental Status: Mental Status NL, Mood NL Results Lab Laboratory Tests 06/30/16 08:05 A/P-Cardiology Admission Diagnosis Nonhealing wound BLE PVD CAD HTN Assessment/Plan Nonhealing wound BLE- s/p recent toe amputation to RLE with erythema and drainage to incision site. LLE wound continues to be nonhealing. Continue on IV antibiotics. Planning for peripheral angiogram Coronary artery disease, history of CABG 4 in 2008 with cardiac catheterization June 02, [address] Arvizu revealing severe three-vessel [place] coronary artery disease with non-bypassed RCA, patent OSBORNE to LAD, patent vein graft to first diag, patent vein graft to first OM. There was occluded jump graft to the second obtuse marginal branch with successful PCI using bare-metal vision stent 3.0 x 28 mm to the second OM. At that time was reported patient staged intervention to the right and third OM branch after gallbladder removal by Dr. Arvizu, had stress test done at [facility] within then and no further intervention was made. Patient was to be scheduled for [facility] with intervention after healing of Left foot ulcer, however, patient did not follow up, Cardiac catheterization was carried out by Dr. Busch in January 2015 and reported as patent OSBORNE to the LAD vein graft to the diagonal artery and vein graft to the obtuse marginal artery, small vessel disease distally, the right coronary artery has severe diffuse disease, Dr. Busch felt that it is high risk for intervention at this time, medical therapy is recommended. Patient will require significant amount of stenting with limited benefit. continue on current medications. Significant peripheral arterial disease, multiple intervention by Dr. Beebe in the past. Extensive workup in the past, last angiogram was done on May 30, 2016 which showed on the right side subtotal occlusion of the anterior tibial artery, severe disease at the posterior tibial and peroneal artery and distal popliteal artery successful balloon angioplasty to the anterior tibial artery using 2.0 then 3.0 balloon with excellent results, balloon angioplasty to the popliteal artery using Lutonix 4.018 mm with excellent results. Patient has stent extending throughout the left SFA down to the popliteal and common femoral artery, good flow, at the trifurcation there is occlusion of stents in the anterior tibial artery, the posterior tibial artery and peroneal arteries were occluded. Planning to proceed with angiogram with intervention once his kidney functions are better. Fractured port s/p angio with retrieval of fractured lead done yesterday. Groin is healing well. Dr. Chicas planning for port removal tomorrow. Chest pain, atypical, improved significantly since starting Imdur. Hypertension,restart home blood pressure medication and continue to monitor. Hyperlipidemia, continue to monitor. Diabetes mellitus, followed and monitored by primary care physician. Chronic renal insufficiency, start patient on IVF's and continue to monitor renal function. Tobaccoism, occasional smoking, educated on avoiding any tobacco product. Mild bilateral nonobstructive carotid artery stenosis, last carotid ultrasound was done June 26, 2016, continue to monitor. History of Noncompliance with medications, educated about compliance with medication. Clinical Quality Measures DVT/VTE Risk/Contraindication: Risk Factor Score Per Nursin RFS Level Per Nursing on Admit: 2=Moderate Contraindications-Pharm: Other *list below* Contraindications-Mechi: Other *list below* Other: needs surgery and lower ext infections JORDEN GREER MD Jun 30, 2016 12:02
[2016-06-30] MEDS: VANCOMYCIN INJECTION 1,250 MG in NS (IVPB) 250 ML IV SCH (14:26)
[2016-06-30 15:20] VITALS: BP 150/75
[2016-06-30 19:10] VITALS: BP 168/82
[2016-06-30] MEDS: ACETAMINOPHEN 325 MG TABLET/CAPLET (TYLENOL) PO PRN (19:39)
[2016-06-30] MEDS: fentaNYL INJECTION 100 MCG/2 ML AMP IVP PRN (19:39)
[2016-06-30] MEDS: SIMvastatin 10 MG (ZOCOR) TAB PO SCH (20:46)
[2016-06-30] MEDS: inSUlin DETERMIR 1 UNIT/0.01 ML (LEVEMIR) CHARGE PER UNIT SQ SCH (21:17)
[2016-06-30 22:25] VITALS: BP 139/66
[2016-07-01] MEDS: fentaNYL INJECTION 100 MCG/2 ML AMP IVP PRN ×4 (02:28→20:49)
[2016-07-01 04:00] VITALS: BP 141/67
[2016-07-01] MEDS: PIPERACILLIN SODIUM/TAZOBACTAM 4.5 GM in NS (IVPB) 100 ML IV SCH ×3 (04:01→20:48)
[2016-07-01 05:30] LABS: BASOPHILS % (AUTO) 0 % (0-10); EOSINOPHILS # (AUTO) 0.1 10^3/uL (0.0-0.3); EOSINOPHILS % (AUTO) 2 % (0-10); LYMPHOCYTES # (AUTO) 0.5 X 10^3 (1.0-4.0); LYMPHOCYTES % (AUTO) 9 % (12-44); MEAN CORPUSCULAR HEMOGLOBIN 29 PG (25-34); MEAN CORPUSCULAR HGB CONC 33 G/DL (32-36); MEAN CORPUSCULAR VOLUME 89 FL (80-99); MEAN PLATELET VOLUME 11.2 FL (7.4-10.4); MONOCYTES # (AUTO) 0.6 X 10^3 (0.0-1.0); MONOCYTES % (AUTO) 9 % (0-12); NEUTROPHILS # (AUTO) 4.9 X 10^3 (1.8-7.8); NEUTROPHILS % (AUTO) 80 % (42-75); PLATELET COUNT 130 10^3/uL (130-400); RED BLOOD COUNT 3.32 10^6/uL (4.35-5.85); RED CELL DISTRIBUTION WIDTH 13.6 % (10.0-14.5); WHITE BLOOD COUNT 6.2 10^3/uL (4.3-11.0)
[2016-07-01 05:46] LABS: CALCIUM 7.7 MG/DL (8.5-10.1); CREATININE SERUM 1.7 MG/DL (0.60-1.30); POTASSIUM 3.4 MMOL/L (3.6-5.0)
[2016-07-01] MEDS: inSUlin ASPART (NovoLOG) 1 UNIT/0.01 ML (CHARGE PER UNIT) SC SCH ×4 (06:00→20:35)
[2016-07-01] MEDS: OMEGA 3 (FISH OIL) 1000 MG CAP PO SCH (06:07)
[2016-07-01] MEDS: LEVOTHYROXINE 100 MCG (LEVOTHROID) TAB PO SCH (06:07)
[2016-07-01 07:30] VITALS: BP 158/75
[2016-07-01] MEDS: ACETAMINOPHEN 325 MG TABLET/CAPLET (TYLENOL) PO PRN (07:43)
[2016-07-01] MEDS: NS IV 1000 ML 1,000 ML IV SCH ×2 (07:46→16:11)
[2016-07-01] MEDS: CLOPIDOGREL 75 MG (PLAVIX) TABLET PO SCH (08:29)
[2016-07-01] MEDS: ISOSORBIDE MONONITRATE 30 MG (IMDUR) TAB PO SCH (08:29)
[2016-07-01] MEDS: ASPIRIN E.C. 81 MG (ECOTRIN) TAB PO SCH (08:29)
--- NOTE | 2016-07-01 09:53 | Cardiology Progress Note ---
Subjective Subjective/Events-last exam patient is sitting in bed, eating breakfast, denied any chest pain or shortness of breath. Denied any palpitation. Review of Systems General: No Chills, No Night Sweats, No Fatigue, No Malaise, No Appetite, No Other HEENT: No Head Aches, No Visual Changes, No Eye Pain, No Ear Pain, No Dysphasia , No Sinus Congestion, No Post Nasal Drip, No Sore Throat, No Other Pulmonary: No Dyspnea, No Cough, No Pleuritic Chest Pain, No Other Cardiovascular: No: Chest Pain, Edema, Lt Headedness, Orthopnea, Other, Palpitations, Paroxysmal Noc. Dyspnea Objective-Cardiology Exam Last Set of Vital Signs Vital Signs 07/01/16 07/01/16 07:30 08:30 Temp 98.7 Pulse 74 Resp 18 B/P (MAP) 158/75 Pulse Ox 95 O2 Delivery Room Air Capillary Refill : I&O Intake and Output 07/01/16 00:00 Intake Total 4302.5 ml Output Total 750 ml Balance 3552.5 ml Intake Oral 740 ml IV Total 3562.5 ml Output Urine Total 750 ml # Voids 2 # Bowel Movements 2 General: Alert, Oriented X3, Cooperative HEENT: Atraumatic, PERRLA Neck: Supple, No JVD, No Thyromegaly Lungs: Clear to Auscultation, Normal Air Movement Heart: Regular Rate, Normal S1, Normal S2, Other Abdomen: Normal Bowel Sounds, Soft, No Tenderness, No Hepatosplenomegaly, No Masses Extremities: No Cyanosis, Other (erythema and ulcer on the left foot, right foot is covered, had recent amputation.) Skin: No Breakdown, Other (ulcers on the legs) Neuro: Normal Speech, Normal Tone, Sensation Intact Psych/Mental Status: Mental Status NL, Mood NL Results Lab Laboratory Tests 07/01/16 05:10 A/P-Cardiology Admission Diagnosis Nonhealing wound BLE PVD CAD HTN Assessment/Plan Nonhealing wound BLE- s/p recent toe amputation to RLE with erythema and drainage to incision site. LLE wound continues to be nonhealing. Continue on IV antibiotics. Planning for peripheral angiogram in the morning. Fever, receiving antibiotic, still having low-grade fever, white count are better. Continue on antibiotics. Coronary artery disease, history of CABG 4 in 2008 with cardiac catheterization June 02, [address] Arvizu revealing severe three-vessel [place] coronary artery disease with non-bypassed RCA, patent OSBORNE to LAD, patent vein graft to first diag, patent vein graft to first OM. There was occluded jump graft to the second obtuse marginal branch with successful PCI using bare-metal vision stent 3.0 x 28 mm to the second OM. At that time was reported patient staged intervention to the right and third OM branch after gallbladder removal by Dr. Arvizu, had stress test done at [facility] within then and no further intervention was made. Patient was to be scheduled for [facility] with intervention after healing of Left foot ulcer, however, patient did not follow up, Cardiac catheterization was carried out by Dr. Busch in January 2015 and reported as patent OSBORNE to the LAD vein graft to the diagonal artery and vein graft to the obtuse marginal artery, small vessel disease distally, the right coronary artery has severe diffuse disease, Dr. Busch felt that it is high risk for intervention at this time, medical therapy is recommended. Patient will require significant amount of stenting with limited benefit. continue on current medications. Significant peripheral arterial disease, multiple intervention by Dr. Beebe in the past. Extensive workup in the past, had intervention in March [address] Mahmood on the left lower extremity using multiple Supera stents to the SFA and distal femoral artery 6.5 mm in diameter, anterior tibial artery has 3 stents drug-eluting Promus Premier 3.5 mm in diameter and they were expanded to 4 mm, last angiogram was done on May 30, 2016 which showed on the right side subtotal occlusion of the anterior tibial artery, severe disease at the posterior tibial and peroneal artery and distal popliteal artery successful balloon angioplasty to the anterior tibial artery using 2.0 then 3.0 balloon with excellent results, balloon angioplasty to the popliteal artery using Lutonix 4.018 mm with excellent results. Patient has stent extending throughout the left SFA down to the popliteal and common femoral artery, good flow, at the trifurcation there is occlusion of stents in the anterior tibial artery, the posterior tibial artery and peroneal arteries were occluded. Planning to proceed with angiogram with intervention tomorrow. Fractured port s/p fluoroscopy with retrieval of fractured lead, recovered well , the port itself was removed by Dr. Chicas. Chest pain, atypical, improved significantly since starting Imdur. Hypertension,restart home blood pressure medication and continue to monitor. Hyperlipidemia, continue to monitor. Diabetes mellitus, followed and monitored by primary care physician. Chronic renal insufficiency, start patient on IVF's and continue to monitor renal function. Tobaccoism, occasional smoking, educated on avoiding any tobacco product. Mild bilateral nonobstructive carotid artery stenosis, last carotid ultrasound was done June 26, 2016, continue to monitor. History of Noncompliance with medications, educated about compliance with medication. Clinical Quality Measures DVT/VTE Risk/Contraindication: Risk Factor Score Per Nursin RFS Level Per Nursing on Admit: 2=Moderate Contraindications-Pharm: Other *list below* Contraindications-Mechi: Other *list below* Other: needs surgery and lower ext infections JORDEN GREER MD Jul 01, 2016 09:53
[2016-07-01 11:50] VITALS: BP 139/68
--- NOTE | 2016-07-01 12:17 | Progress Note-Hospitalist ---
Subjective HPI/CC On Admission CC: Foot infection HPI: This is a 55[facility] pt of mine with hx of CAD previous bypass, PVD, CRI that presents to hospital as a direct admit for wound care. Pt with multiple DM foot wounds in need of IV ABX so placed on Zosyn and Vanc and Dr. Roy is attempting to revascularize on Saturday. Chart Review: Max fever 100.1 vitals otherwise stable, WBC 7.8, Hgb 0.4, Creat 2.1 assembler final: Pt is in recovery currently. Pt had port removed today. PICC line has been placed. Scribed by Keaton Hawley under the direct supervision of Dr. Colon. Date Seen 07/01/16 Subjective/Events-last exam PT. reports feeling better and for the first time last night was able to eat. He also had breakfast this morning without nausea or vomiting. MAXIMUM TEMPERATURE 101.2. He denies chills or fever. He is scheduled for arteriography and indicated procedure lower extremity per Dr. Mack in the morning. Objective Exam Vital Signs Vital Sign - Last 12Hours 06/28/16 13:00 Temp 99.9 Pulse 111 Resp 24 B/P (MAP) 136/77 Pulse Ox 100 O2 Delivery Room Air Capillary Refill : General Appearance: No Apparent Distress Respiratory: Chest Non Tender, Lungs Clear, Normal Breath Sounds, No Accessory Muscle Use, No Respiratory Distress Cardiovascular: Regular Rate, Rhythm, No Gallop, No JVD, Other (1 to 2/6 systolic ejection murmur heard left lower sternal border no diastolic murmurs noted.) Extremity: Other (both feet are wrapped with evidence for forefoot amputations in images noted on bandages.) Results/Procedures Lab Laboratory Tests 07/01/16 05:10 Assessment/Plan Assessment and Plan Assess & Plan/Chief Complaint 1. Diabetic foot infection possible osteomyelitis aggravated by peripheral vascular disease scheduled for arteriography and indicated procedure to attempt to improve circulation and wound healing. 2. Creatinine down to 1.7 with improving diabetic renal disease. Patient aware of his increased risk for contrast nephropathy continue IV hydration. BISMARK HUIZAR MD Jul 01, 2016 12:17
[2016-07-01] MEDS ORDERED: TROUGH ORDER-PHARMACY XX NR (13:00)
[2016-07-01] MEDS ORDERED: VANCOMYCIN 1500 MG/NS 500 ML IVPB IV SCH ×2 (14:00)
[2016-07-01 16:00] VITALS: BP 178/56
[2016-07-01 19:55] VITALS: BP 169/89
[2016-07-01] MEDS: inSUlin DETERMIR 1 UNIT/0.01 ML (LEVEMIR) CHARGE PER UNIT SQ SCH (20:35)
[2016-07-01] MEDS: SIMvastatin 10 MG (ZOCOR) TAB PO SCH (20:48)
[2016-07-01] MEDS: HYDROcodone/APAP 10 MG/325 MG (LORTAB) TAB PO PRN (20:48)
[2016-07-02] VITALS: BP 135/81
[2016-07-02] MEDS: NS IV 1000 ML 1,000 ML IV SCH ×5 (00:41→23:12)
[2016-07-02 04:00] VITALS: BP 159/72
[2016-07-02] MEDS: PIPERACILLIN SODIUM/TAZOBACTAM 4.5 GM in NS (IVPB) 100 ML IV SCH (04:00)
[2016-07-02] MEDS: inSUlin ASPART (NovoLOG) 1 UNIT/0.01 ML (CHARGE PER UNIT) SC SCH ×4 (06:00→20:32)
[2016-07-02] MEDS: fentaNYL INJECTION 100 MCG/2 ML AMP IVP PRN ×7 (06:06→23:13)
[2016-07-02 06:17] LABS: MEAN PLATELET VOLUME 11.2 FL (7.4-10.4); RED BLOOD COUNT 3.81 10^6/uL (4.35-5.85); RED CELL DISTRIBUTION WIDTH 13.8 % (10.0-14.5); WHITE BLOOD COUNT 7.4 10^3/uL (4.3-11.0)
[2016-07-02] MEDS: OMEGA 3 (FISH OIL) 1000 MG CAP PO SCH (06:24)
[2016-07-02] MEDS: LEVOTHYROXINE 100 MCG (LEVOTHROID) TAB PO SCH (06:24)
[2016-07-02 06:26] LABS: INR 1.1 (0.8-1.4); PROTHROMBIN TIME PATIENT 13.4 SEC (12.2-14.7)
[2016-07-02 06:33] LABS: ALBUMIN 2.6 G/DL (3.2-4.5); BILIRUBIN,TOTAL 0.6 MG/DL (0.1-1.0); CALCIUM 8.1 MG/DL (8.5-10.1); CREATININE SERUM 1.63 MG/DL (0.60-1.30); POTASSIUM 3.6 MMOL/L (3.6-5.0)
[2016-07-02 08:00] VITALS: BP 165/73
[2016-07-02] MEDS ORDERED: NS IV 1000 ML 1,000 ML ONE (08:01)
[2016-07-02] MEDS ORDERED: HEParin (CATH LAB) 2,000 ML IV ONE (08:01)
[2016-07-02] MEDS ORDERED: LIDOCAINE 1% INJ 20 ML (XYLOCAINE) VIAL ONE (08:01)
[2016-07-02] MEDS ORDERED: MIDAZOLAM 5 MG/5 ML (VERSED) VIAL ONE (08:51)
[2016-07-02] MEDS ORDERED: NITROGLYCERIN DRIP 25 MG/D5W 250 ML IV ONE (08:51)
[2016-07-02] MEDS ORDERED: fentaNYL INJECTION 100 MCG/2 ML AMP ONE (08:51)
--- NOTE | 2016-07-02 09:20 | Cardiology Progress Note ---
Subjective Subjective/Events-last exam Patient is in bed, feeling better, no new complaint, no chest pain Review of Systems General: No Chills, No Night Sweats, No Fatigue, No Malaise, No Appetite, No Other HEENT: No Head Aches, No Visual Changes, No Eye Pain, No Ear Pain, No Dysphasia , No Sinus Congestion, No Post Nasal Drip, No Sore Throat, No Other Pulmonary: No Dyspnea, No Cough, No Pleuritic Chest Pain, No Other Cardiovascular: No: Chest Pain, Edema, Lt Headedness, Orthopnea, Other, Palpitations, Paroxysmal Noc. Dyspnea Objective-Cardiology Exam Last Set of Vital Signs Vital Signs 07/02/16 08:00 Temp 99.9 Pulse 70 Resp 18 B/P (MAP) 165/73 Pulse Ox 97 O2 Delivery Room Air Capillary Refill : I&O Intake and Output 07/02/16 00:00 Intake Total 4385 ml Balance 4385 ml Intake Oral 1570 ml IV Total 2815 ml # Voids 8 General: Alert, Oriented X3, Cooperative HEENT: Atraumatic, PERRLA Neck: Supple, No JVD, No Thyromegaly Lungs: Clear to Auscultation, Normal Air Movement Heart: Regular Rate, Normal S1, Normal S2, Other Abdomen: Normal Bowel Sounds, Soft, No Tenderness, No Hepatosplenomegaly, No Masses Extremities: No Cyanosis, Other (erythema and ulcer on the left foot, right foot is covered, had recent amputation.) Skin: No Breakdown, Other (ulcers on the legs) Neuro: Normal Speech, Normal Tone, Sensation Intact Psych/Mental Status: Mental Status NL, Mood NL Results Lab Laboratory Tests 07/02/16 06:00 A/P-Cardiology Admission Diagnosis Nonhealing wound BLE PVD CAD HTN Assessment/Plan Nonhealing wound BLE- s/p recent toe amputation to RLE with erythema and drainage to incision site. LLE wound continues to be nonhealing. Continue on IV antibiotics. Planning for peripheral angiogram today Coronary artery disease, history of CABG 4 in 2008 with cardiac catheterization June 02, [address] Arvizu revealing severe three-vessel [place] coronary artery disease with non-bypassed RCA, patent OSBORNE to LAD, patent vein graft to first diag, patent vein graft to first OM. There was occluded jump graft to the second obtuse marginal branch with successful PCI using bare-metal vision stent 3.0 x 28 mm to the second OM. At that time was reported patient staged intervention to the right and third OM branch after gallbladder removal by Dr. Arvizu, had stress test done at [facility] within then and no further intervention was made. Patient was to be scheduled for [facility] with intervention after healing of Left foot ulcer, however, patient did not follow up, Cardiac catheterization was carried out by Dr. Busch in January 2015 and reported as patent OSBORNE to the LAD vein graft to the diagonal artery and vein graft to the obtuse marginal artery, small vessel disease distally, the right coronary artery has severe diffuse disease, Dr. Busch felt that it is high risk for intervention at this time, medical therapy is recommended. Patient will require significant amount of stenting with limited benefit. continue on current medications. Significant peripheral arterial disease, multiple intervention by Dr. Beebe in the past. Extensive workup in the past, had intervention in March [address] Mahmood on the left lower extremity using multiple Supera stents to the SFA and distal femoral artery 6.5 mm in diameter, anterior tibial artery has 3 stents drug-eluting Promus Premier 3.5 mm in diameter and they were expanded to 4 mm, last angiogram was done on May 30, 2016 which showed on the right side subtotal occlusion of the anterior tibial artery, severe disease at the posterior tibial and peroneal artery and distal popliteal artery successful balloon angioplasty to the anterior tibial artery using 2.0 then 3.0 balloon with excellent results, balloon angioplasty to the popliteal artery using Lutonix 4.018 mm with excellent results. Patient has stent extending throughout the left SFA down to the popliteal and common femoral artery, good flow, at the trifurcation there is occlusion of stents in the anterior tibial artery, the posterior tibial artery and peroneal arteries were occluded. Planning to proceed with angiogram with intervention today Fractured port s/p fluoroscopy with retrieval of fractured lead, recovered well , the port itself was removed by Dr. Chicas. Chest pain, atypical, improved significantly since starting Imdur. Hypertension,restart home blood pressure medication and continue to monitor. Hyperlipidemia, continue to monitor. Diabetes mellitus, followed and monitored by primary care physician. Chronic renal insufficiency, start patient on IVF's and continue to monitor renal function. Tobaccoism, occasional smoking, educated on avoiding any tobacco product. Mild bilateral nonobstructive carotid artery stenosis, last carotid ultrasound was done June 26, 2016, continue to monitor. History of Noncompliance with medications, educated about compliance with medication. Clinical Quality Measures DVT/VTE Risk/Contraindication: Risk Factor Score Per Nursin RFS Level Per Nursing on Admit: 2=Moderate Contraindications-Pharm: Other *list below* Contraindications-Mechi: Other *list below* Other: needs surgery and lower ext infections JORDEN GREER MD Jul 02, 2016 09:20
--- NOTE | 2016-07-02 09:21 | Cardiac Procedure Note-CS/ASA ---
Pre-Procedure Note Pre-Op Procedure Note H&P Reviewed The H&P was reviewed, patient examined and no changes noted. Date H&P Reviewed: Jul 02, 2016 Time H&P Reviewed: 09:20 Conscious Sedation Pre-Proced Time Reviewed: 09:20 ASA Class: 3 Airway Mallampati Classification: ([place] appropriate class) I. II. III, IV Lungs Heart ASA score ASA 1: a normal healthy patient ASA 2: a patient with a mild systemic disease (mid diabetes, controlled hypertension, obesity x ASA 3: a patient with a severe systemic disease that limits activity (angina , COPD, prior Myocardial infarction) ASA 4: a patient with an incapacitating disease that is a constant threat to life (CHF, renal failure) ASA 5: a moribund patient not expected to survive 24 hrs. (ruptured aneurysm) ASA 6: a declared brain patient whose organs are being harvested. For emergent operations, add the letter E after the classification Grade 3 Sedation Plan: Analgesia, Amnesia, Plan communicated to team members, Discussed options with patient/fam, Discussed risks with patient/fam Note The patient is an appropriate candidate to undergo the planned procedure, sedation, and anesthesia. The patient immediately re-assessed prior to indication. JORDEN GREER MD Jul 02, 2016 09:21
[2016-07-02] MEDS ORDERED: HEParin 1000 UNIT/ML (10ML VIAL) FOR BOLUS ONE (09:38)
[2016-07-02] MEDS ORDERED: ASPIRIN 81 MG CHEW (CHILDREN'S ASA) ONE (10:23)
[2016-07-02] MEDS ORDERED: CLOPIDOGREL 75 MG (PLAVIX) TABLET ONE (10:23)
[2016-07-02] MEDS ORDERED: PATIENT MAY USE OWN MEDS, ALL PO SCH (10:30)
--- NOTE | 2016-07-02 11:50 | CARDIAC CATHETERIZATION ---
PROCEDURE PHYSICIAN: JORDEN GREER DATE OF PROCEDURE: 07/02/2016 PERIPHERAL ANGIOGRAM: BRIEF HISTORY: Mr. Valera is a 55-year-old gentleman with extensive peripheral arterial disease had multiple interventions in the past. Last month had intervention on the right anterior tibial and popliteal artery, had amputation of his toes. The patient had new ulcer on his left foot that had multiple interventions in the past. He is known to have occluded anterior tibial artery. I decided to proceed with percutaneous intervention. PROCEDURE NOTE: After explaining the procedure to the patient, the patient was placed on the cardiac catheterization. The right groin was prepped in a sterile fashion. Local anesthesia applied. A 6-Niuean sheath was placed in the right femoral artery. Runoff with 6 mL of contrast of the right lower extremity was done. Then I attempt to cross with a pigtail which was not successful. I used a rim catheter, crossed with a long Storq wire, advanced to the SFA and place distally after performing angiogram through the rim catheter placed at the left common iliac artery. Runoff was done. Then advanced the Storq wire distally and the rim catheter was removed. Then I exchanged the catheter and the sheath into a long 6-Niuean sheath, advanced to the proximal SFA. Then I readvanced the straight catheter down to the trifurcation, placed at the popliteal artery and angiogram was done. At that point, the patient was noted to have total occlusion of the anterior tibial artery within the stent. Given 5000 units of heparin. I used a Command wire, advanced it through the anterior tibial artery parked distally. Then I advanced a [place] balloon 3 x 100 balloon, multiple inflations were done. The patient was given intra-arterial nitroglycerin. Angiogram showed excellent results. The wire was removed. Then the sheath was exchanged again into short 6-Niuean sheath and I reintroduced a pigtail catheter, advanced to the abdominal aorta. 6 mL of contrast was used to evaluate the bifurcation. At that point the sheath was removed. Mynx device deployed. Hemostasis achieved. Total contrast used is 51 mL. Total radiation is 185 mGy. FINDINGS: 1. Abdominal aorta pressure is 198/71, mean of 122. Abdominal aortogram showed mild atherosclerotic disease, iliac stents on the right is patent. Atherosclerotic disease at the ostium of the left iliac artery, nonobstructive disease. 2. Right lower extremity runoff: The right lower extremity runoff showed moderate diffuse disease except for one segment at the mid SFA which appeared to be 70% stenosis. It appeared to be worsening compared to the previous study that was done 2 months ago. The anterior tibial and posterior tibial are patent. 3. Left lower extremity runoff showed the left common femoral artery has moderate disease. The SFA and popliteal artery has moderate diffuse disease, anterior tibial artery was totally occluded. Successful balloon angioplasty using [place] 3 x 100 with excellent results. Reestablishment of the flow in the anterior tibial artery. The posterior tibial artery is occluded which was not repaired previously. The peroneal artery has been patent and has a patent stent. CONCLUSION: 1. Moderate to severe stenosis at the mid right SFA with patent anterior tibial and posterior tibial artery. 2. Moderate disease in the left SFA diffusely. 3. Total occlusion of the anterior tibial artery, status post balloon angioplasty using [place] balloon 3 x 100 with excellent results. 4. 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 The peroneal artery is patent. 5. Atherosclerotic disease in the abdominal aorta and moderate disease at the origin of the left common iliac artery. DISCUSSION AND RECOMMENDATION: I will continue maximizing medical therapy. Monitor the patient closely. Evaluate CASEY of the right lower extremity. If there is any significant progression of the disease, I will consider intervening on the right anterior tibial artery with a coated balloon or stent. Job ID: [id number] Dictated Date: 07/02/2016 10:33:55 Aviation Safety Officer Date: 07/02/2016 11:33:19 / cristina
[2016-07-02] MEDS: ASPIRIN E.C. 81 MG (ECOTRIN) TAB PO SCH (13:26)
[2016-07-02] MEDS: CLOPIDOGREL 75 MG (PLAVIX) TABLET PO SCH (13:53)
[2016-07-02] MEDS: ISOSORBIDE MONONITRATE 30 MG (IMDUR) TAB PO SCH (14:05)
[2016-07-02] MEDS: cefTRIAXone 2 GM/NS 50 ML IVPB IV SCH ×2 (14:06)
[2016-07-02 15:48] VITALS: BP 134/72
[2016-07-02 15:49] VITALS: BP 134/72
[2016-07-02 20:14] VITALS: BP 128/68
[2016-07-02] MEDS: HYDROcodone/APAP 10 MG/325 MG (LORTAB) TAB PO PRN (20:31)
[2016-07-02] MEDS: SIMvastatin 10 MG (ZOCOR) TAB PO SCH (20:31)
[2016-07-02] MEDS: inSUlin DETERMIR 1 UNIT/0.01 ML (LEVEMIR) CHARGE PER UNIT SQ SCH (20:32)
[2016-07-03] VITALS: BP 171/87
[2016-07-03] MEDS: HYDROcodone/APAP 10 MG/325 MG (LORTAB) TAB PO PRN ×2 (01:56→21:10)
[2016-07-03] MEDS: NS IV 1000 ML 1,000 ML IV SCH ×4 (02:25→20:55)
[2016-07-03] MEDS: fentaNYL INJECTION 100 MCG/2 ML AMP IVP PRN ×3 (03:12→16:54)
[2016-07-03 04:00] VITALS: BP 164/86
[2016-07-03 05:28] LABS: MEAN PLATELET VOLUME 10.9 FL (7.4-10.4); RED BLOOD COUNT 3.17 10^6/uL (4.35-5.85); RED CELL DISTRIBUTION WIDTH 13.6 % (10.0-14.5); WHITE BLOOD COUNT 6.5 10^3/uL (4.3-11.0)
[2016-07-03 05:45] LABS: CALCIUM 7.3 MG/DL (8.5-10.1); CREATININE SERUM 1.32 MG/DL (0.60-1.30); POTASSIUM 3.9 MMOL/L (3.6-5.0)
[2016-07-03] MEDS: inSUlin ASPART (NovoLOG) 1 UNIT/0.01 ML (CHARGE PER UNIT) SC SCH ×4 (06:00→21:10)
[2016-07-03] MEDS: LEVOTHYROXINE 100 MCG (LEVOTHROID) TAB PO SCH (06:14)
[2016-07-03] MEDS: OMEGA 3 (FISH OIL) 1000 MG CAP PO SCH (06:14)
[2016-07-03 07:40] VITALS: BP 164/78
[2016-07-03] MEDS: ASPIRIN E.C. 81 MG (ECOTRIN) TAB PO SCH (08:03)
[2016-07-03] MEDS: ISOSORBIDE MONONITRATE 30 MG (IMDUR) TAB PO SCH (08:03)
[2016-07-03] MEDS: CLOPIDOGREL 75 MG (PLAVIX) TABLET PO SCH (08:03)
--- NOTE | 2016-07-03 10:59 | Cardiology Progress Note ---
Subjective Subjective/Events-last exam Patient is in bed, feeling better, groin is healing well. No chest pain. Review of Systems General: No Chills, No Night Sweats, No Fatigue, No Malaise, No Appetite, No Other HEENT: No Head Aches, No Visual Changes, No Eye Pain, No Ear Pain, No Dysphasia , No Sinus Congestion, No Post Nasal Drip, No Sore Throat, No Other Pulmonary: No Dyspnea, No Cough, No Pleuritic Chest Pain, No Other Cardiovascular: No: Chest Pain, Edema, Lt Headedness, Orthopnea, Other, Palpitations, Paroxysmal Noc. Dyspnea Objective-Cardiology Exam Last Set of Vital Signs Vital Signs 07/03/16 07/03/16 07:40 09:00 Temp 99.0 Pulse 65 Resp 20 B/P (MAP) 164/78 Pulse Ox 97 O2 Delivery Room Air Capillary Refill : Less Than 3 Seconds I&O Intake and Output 07/03/16 00:00 Intake Total 3670 ml Balance 3670 ml Intake Oral 520 ml IV Total 3150 ml # Voids 5 General: Alert, Oriented X3, Cooperative HEENT: Atraumatic, PERRLA Neck: Supple, No JVD, No Thyromegaly Lungs: Clear to Auscultation, Normal Air Movement Heart: Regular Rate, Normal S1, Normal S2, Other Abdomen: Normal Bowel Sounds, Soft, No Tenderness, No Hepatosplenomegaly, No Masses Extremities: No Cyanosis, Other (erythema and ulcer on the left foot, right foot is covered, had recent amputation.) Skin: No Breakdown, Other (ulcers on the legs) Neuro: Normal Speech, Normal Tone, Sensation Intact Psych/Mental Status: Mental Status NL, Mood NL Results Lab Laboratory Tests 07/03/16 05:20 A/P-Cardiology Admission Diagnosis Nonhealing wound BLE PVD CAD HTN Assessment/Plan Nonhealing wound BLE- s/p recent toe amputation to RLE with erythema and drainage to incision site. LLE wound continues to be nonhealing. Continue on IV antibiotics. Coronary artery disease, history of CABG 4 in 2008 with cardiac catheterization June 02, [address] Arvizu revealing severe three-vessel [place] coronary artery disease with non-bypassed RCA, patent OSBORNE to LAD, patent vein graft to first diag, patent vein graft to first OM. There was occluded jump graft to the second obtuse marginal branch with successful PCI using bare-metal vision stent 3.0 x 28 mm to the second OM. At that time was reported patient staged intervention to the right and third OM branch after gallbladder removal by Dr. Arvizu, had stress test done at [facility] within then and no further intervention was made. Patient was to be scheduled for [facility] with intervention after healing of Left foot ulcer, however, patient did not follow up, Cardiac catheterization was carried out by Dr. Busch in January 2015 and reported as patent OSBORNE to the LAD vein graft to the diagonal artery and vein graft to the obtuse marginal artery, small vessel disease distally, the right coronary artery has severe diffuse disease, Dr. Busch felt that it is high risk for intervention at this time, medical therapy is recommended. Patient will require significant amount of stenting with limited benefit. continue on current medications. Significant peripheral arterial disease, multiple intervention by Dr. Beebe in the past. Extensive workup in the past, had intervention in March [address] Mahmood on the left lower extremity using multiple Supera stents to the SFA and distal femoral artery 6.5 mm in diameter, anterior tibial artery has 3 stents drug-eluting Promus Premier 3.5 mm in diameter and they were expanded to 4 mm, last angiogram was done on May 30, 2016 which showed on the right side subtotal occlusion of the anterior tibial artery, severe disease at the posterior tibial and peroneal artery and distal popliteal artery successful balloon angioplasty to the anterior tibial artery using 2.0 then 3.0 balloon with excellent results, balloon angioplasty to the popliteal artery using Lutonix 4.018 mm with excellent results. Patient has stent extending throughout the left SFA down to the popliteal and common femoral artery, good flow, at the trifurcation there is occlusion of stents in the anterior tibial artery, the posterior tibial artery and peroneal arteries were occluded. Peripheral angiogram was done on July 02, 2016, balloon angioplasty to the anterior tibial artery with excellent result judgment of the flow, patient appeared to have significant disease on the SFA, I will proceed with angiogram using the left groin and possible balloon antiplastic to the right SFA. Fractured port s/p fluoroscopy with retrieval of fractured lead, recovered well , the port itself was removed by Dr. Chicas. Chest pain, atypical, improved significantly since starting Imdur. Hypertension,restart home blood pressure medication and continue to monitor. Hyperlipidemia, continue to monitor. Diabetes mellitus, followed and monitored by primary care physician. Chronic renal insufficiency, start patient on IVF's and continue to monitor renal function. Tobaccoism, occasional smoking, educated on avoiding any tobacco product. Mild bilateral nonobstructive carotid artery stenosis, last carotid ultrasound was done June 26, 2016, continue to monitor. History of Noncompliance with medications, educated about compliance with medication. Clinical Quality Measures DVT/VTE Risk/Contraindication: Risk Factor Score Per Nursin RFS Level Per Nursing on Admit: 2=Moderate Contraindications-Pharm: Other *list below* Contraindications-Mechi: Other *list below* Other: needs surgery and lower ext infections JORDEN GREER MD Jul 03, 2016 10:58
[2016-07-03 12:00] VITALS: BP 167/78
[2016-07-03] MEDS: cefTRIAXone 2 GM/NS 50 ML IVPB IV SCH ×2 (12:40)
[2016-07-03] MEDS ORDERED: TROUGH ORDER-PHARMACY XX NR (13:00)
--- NOTE | 2016-07-03 13:18 | Progress Note-Hospitalist ---
Standard Progress Note Progress Notes/Assess & Plan Date Seen 07/03/16 Diagnosis Assessment: Bilateral diabetic foot infections likely osteomyelitis may need amputation versus revascularization to attempt wound care Diabetes mellitus insulin-dependent CAD previous bypass Peripheral vascular disease severe Previous and current smoker stops periodically Hypertension Hyperlipidemia Chronic pain Chronic renal insufficiency Assess & Plan/Chief Complaint The patient had arterio graphic evaluation of his distal vasculature. It appeared that flow there was adequate for healing. Dr. Roy found a lesion in the femoral runoff that appeared to have progressed considerably since the last arteriogram and plans to do angioplasty and stenting there tomorrow in hopes of delivering more blood for the wound on the right foot. The patient reports he is getting stir crazy and would like to go home as soon as possible. It would appear that after the intervention this will be possible. He will continue to require IV antibiotics but this can be done in manager managed care on a once a day basis. Physical exam: The patient is alert and oriented. Lungs are clear to auscultation. CV is regular without murmur. The right lower extremity shows the foot to be in a dressing with a compression wrap. There is a small spot of blood which has penetrated over the amputated toe. Impression: Diabetes mellitus type II with peripheral vascular disease. 2.arteriosclerotic heart disease with previous bypass surgery. 3.nonhealing wound right foot Labs Laboratory Tests 07/02/16 06:00 07/03/16 05:20 BARAK COVINGTON MD Jul 03, 2016 13:18
[2016-07-03 16:24] VITALS: BP 156/70
[2016-07-03 20:19] VITALS: BP 131/61
[2016-07-03] MEDS ORDERED: ZOLPIDEM 5 MG (AMBIEN) TAB PO ONE (21:00)
[2016-07-03] MEDS: inSUlin DETERMIR 1 UNIT/0.01 ML (LEVEMIR) CHARGE PER UNIT SQ SCH (21:00)
[2016-07-03] MEDS: SIMvastatin 10 MG (ZOCOR) TAB PO SCH (21:10)
[2016-07-04] VITALS (18 sets, daily range): BP systolic 129–180; BP diastolic 65–103
[2016-07-04] MEDS: fentaNYL INJECTION 100 MCG/2 ML AMP IVP PRN (03:26)
[2016-07-04] MEDS: OMEGA 3 (FISH OIL) 1000 MG CAP PO SCH (05:54)
[2016-07-04] MEDS: inSUlin ASPART (NovoLOG) 1 UNIT/0.01 ML (CHARGE PER UNIT) SC SCH ×4 (05:54→20:50)
[2016-07-04] MEDS: LEVOTHYROXINE 100 MCG (LEVOTHROID) TAB PO SCH (05:54)
[2016-07-04] MEDS ORDERED: NS IV 1000 ML 0 ML ONE (06:44)
[2016-07-04] MEDS ORDERED: LIDOCAINE 1% INJ 20 ML (XYLOCAINE) VIAL ONE ×2 (06:44→08:25)
[2016-07-04] MEDS ORDERED: HEParin (CATH LAB) 2,000 ML IV ONE (06:44)
[2016-07-04] MEDS ORDERED: MIDAZOLAM 5 MG/5 ML (VERSED) VIAL ONE (07:14)
[2016-07-04] MEDS ORDERED: fentaNYL INJECTION 100 MCG/2 ML AMP ONE (07:14)
[2016-07-04] MEDS ORDERED: NITROGLYCERIN DRIP 25 MG/D5W 250 ML IV ONE (07:16)
[2016-07-04] MEDS: NS IV 1000 ML 1,000 ML IV SCH ×3 (07:31→16:23)
--- NOTE | 2016-07-04 07:55 | Cardiac Procedure Note-CS/ASA ---
Pre-Procedure Note Pre-Op Procedure Note H&P Reviewed The H&P was reviewed, patient examined and no changes noted. Date H&P Reviewed: Jul 04, 2016 Time H&P Reviewed: 07:55 Conscious Sedation Pre-Proced Time Reviewed: 07:55 ASA Class: 3 Airway Mallampati Classification: ([place] appropriate class) I. II. III, IV Lungs Heart ASA score ASA 1: a normal healthy patient ASA 2: a patient with a mild systemic disease (mid diabetes, controlled hypertension, obesity x ASA 3: a patient with a severe systemic disease that limits activity (angina , COPD, prior Myocardial infarction) ASA 4: a patient with an incapacitating disease that is a constant threat to life (CHF, renal failure) ASA 5: a moribund patient not expected to survive 24 hrs. (ruptured aneurysm) ASA 6: a declared brain patient whose organs are being harvested. For emergent operations, add the letter E after the classification Grade 3 Sedation Plan: Analgesia, Amnesia, Plan communicated to team members, Discussed options with patient/fam, Discussed risks with patient/fam Note The patient is an appropriate candidate to undergo the planned procedure, sedation, and anesthesia. The patient immediately re-assessed prior to indication. JORDEN GREER MD Jul 04, 2016 07:55
[2016-07-04] MEDS ORDERED: HEParin 1000 UNIT/ML (10ML VIAL) FOR BOLUS ONE (08:14)
[2016-07-04] MEDS ORDERED: MIDAZOLAM 2 MG/2 ML (VERSED) VIAL ONE (08:52)
[2016-07-04] MEDS ORDERED: PATIENT MAY USE OWN MEDS, ALL PO SCH (09:15)
--- NOTE | 2016-07-04 09:30 | Cardiology Progress Note ---
Subjective Subjective/Events-last exam patient is laying down in bed, feeling better, no new complaint. Underwent intervention without any complication. Review of Systems General: No Chills, No Night Sweats, No Fatigue, No Malaise, No Appetite, No Other HEENT: No Head Aches, No Visual Changes, No Eye Pain, No Ear Pain, No Dysphasia , No Sinus Congestion, No Post Nasal Drip, No Sore Throat, No Other Pulmonary: No Dyspnea, No Cough, No Pleuritic Chest Pain, No Other Cardiovascular: No: Chest Pain, Edema, Lt Headedness, Orthopnea, Other, Palpitations, Paroxysmal Noc. Dyspnea Objective-Cardiology Exam Last Set of Vital Signs Vital Signs 07/04/16 07:30 Temp 98.5 Pulse 74 Resp 18 B/P (MAP) 171/81 Pulse Ox 97 O2 Delivery Room Air Capillary Refill : Less Than 3 Seconds I&O Intake and Output 07/04/16 00:00 Intake Total 3610 ml Balance 3610 ml Intake Oral 1560 ml IV Total 2050 ml # Voids 10 General: Alert, Oriented X3, Cooperative HEENT: Atraumatic, PERRLA Neck: Supple, No JVD, No Thyromegaly Lungs: Clear to Auscultation, Normal Air Movement Heart: Regular Rate, Normal S1, Normal S2, Other Abdomen: Normal Bowel Sounds, Soft, No Tenderness, No Hepatosplenomegaly, No Masses Extremities: No Cyanosis, Other (erythema and ulcer on the left foot, right foot is covered, had recent amputation.) Skin: No Breakdown, Other (ulcers on the legs) Neuro: Normal Speech, Normal Tone, Sensation Intact Psych/Mental Status: Mental Status NL, Mood NL Results Lab Laboratory Tests Test 07/03/16 11:37 07/03/16 15:54 07/03/16 20:32 07/04/16 05:50 Range/Units Glucometer 109 224 H 211 H 142 H 70-110 MG/DL A/P-Cardiology Admission Diagnosis Nonhealing wound BLE PVD CAD HTN Assessment/Plan Nonhealing wound BLE- s/p recent toe amputation to RLE with erythema and drainage to incision site. LLE wound continues to be nonhealing. Continue on IV antibiotics. Coronary artery disease, history of CABG 4 in 2008 with cardiac catheterization June 02, [address] Arvizu revealing severe three-vessel jena coronary artery disease with non-bypassed RCA, patent OSBORNE to LAD, patent vein graft to first diag, patent vein graft to first OM. There was occluded jump graft to the second obtuse marginal branch with successful PCI using bare-metal vision stent 3.0 x 28 mm to the second OM. At that time was reported patient staged intervention to the right and third OM branch after gallbladder removal by Dr. Arvizu, had stress test done at [facility] within then and no further intervention was made. Patient was to be scheduled for [facility] with intervention after healing of Left foot ulcer, however, patient did not follow up, Cardiac catheterization was carried out by Dr. Busch in January 2015 and reported as patent OSBORNE to the LAD vein graft to the diagonal artery and vein graft to the obtuse marginal artery, small vessel disease distally, the right coronary artery has severe diffuse disease, Dr. Busch felt that it is high risk for intervention at this time, medical therapy is recommended. Patient will require significant amount of stenting with limited benefit. continue on current medications. Significant peripheral arterial disease, multiple intervention by Dr. Beebe in the past. Extensive workup in the past, had intervention in March [address] Mahmood on the left lower extremity using multiple Supera stents to the SFA and distal femoral artery 6.5 mm in diameter, anterior tibial artery has 3 stents drug-eluting Promus Premier 3.5 mm in diameter and they were expanded to 4 mm, last angiogram was done on May 30, 2016 which showed on the right side subtotal occlusion of the anterior tibial artery, severe disease at the posterior tibial and peroneal artery and distal popliteal artery successful balloon angioplasty to the anterior tibial artery using 2.0 then 3.0 balloon with excellent results, balloon angioplasty to the popliteal artery using Lutonix 4.018 mm with excellent results. Patient has stent extending throughout the left SFA down to the popliteal and common femoral artery, good flow, at the trifurcation there is occlusion of stents in the anterior tibial artery, the posterior tibial artery and peroneal arteries were occluded. Peripheral angiogram was done on July 02, 2016, balloon angioplasty to the anterior tibial artery with excellent result.second intervention was done today on July 04, 2016 showing 50 mmHg gradient across the distal SFA, successful balloon angioplasty using drug-coated balloon Lutonix 6x150 with excellent results, the anterior tibial artery on the right lower extremity is patent down to the foot. Fractured port s/p fluoroscopy with retrieval of fractured lead, recovered well , the port itself was removed by Dr. Chicas. Chest pain, atypical, improved significantly since starting Imdur. Hypertension, restart home blood pressure medication and continue to monitor. Hyperlipidemia, continue to monitor. Diabetes mellitus, followed and monitored by primary care physician. Chronic renal insufficiency, start patient on IVF's and continue to monitor renal function. Tobaccoism, occasional smoking, educated on avoiding any tobacco product. Mild bilateral nonobstructive carotid artery stenosis, last carotid ultrasound was done June 26, 2016, continue to monitor. History of Noncompliance with medications, educated about compliance with medication. Clinical Quality Measures DVT/VTE Risk/Contraindication: Risk Factor Score Per Nursin RFS Level Per Nursing on Admit: 2=Moderate Contraindications-Pharm: Other *list below* Contraindications-Mechi: Other *list below* Other: needs surgery and lower ext infections JORDEN GREER MD Jul 04, 2016 09:30
[2016-07-04] MEDS: HYDROcodone/APAP 10 MG/325 MG (LORTAB) TAB PO PRN ×3 (09:40→20:51)
[2016-07-04] MEDS: ISOSORBIDE MONONITRATE 30 MG (IMDUR) TAB PO SCH (09:40)
[2016-07-04] MEDS: CLOPIDOGREL 75 MG (PLAVIX) TABLET PO SCH (09:40)
[2016-07-04] MEDS: ASPIRIN E.C. 81 MG (ECOTRIN) TAB PO SCH (09:41)
[2016-07-04] MEDS ORDERED: amLODIPine 10 MG (NORVASC) TAB PO ONE (10:00)
[2016-07-04] MEDS: amLODIPine 10 MG (NORVASC) TAB PO SCH (10:20)
--- NOTE | 2016-07-04 10:31 | Progress Note-Hospitalist ---
Progress Note HPI/CC on Admission CC: Foot infection HPI: This is a 55yoWM clinic pt of mine with hx of CAD previous bypass, PVD, CRI that presents to hospital as a direct admit for wound care. Pt with multiple DM foot wounds in need of IV ABX so placed on Zosyn and Vanc and Dr. Roy is attempting to revascularize on Saturday. 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 Pt had port removed today. PICC line has been placed. Scribed by Keaton Hawley under the direct supervision of Dr. Solano. 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 Otto. Pt is consistently requesting Fentanyl, and RN would like to decrease dosage. Picc line working well. SW Review: Angiogram scheduled for today due to possible clot in order to improve blood flow Pt considered for DC today with Rocephin Patient Interview: Pt states that he is feeling improved today. Dr. Solano informs pt that his Fentanyl dosage will be reduced, and pt is agreeable with this. Pt states that he has a small supply of pain meds at home. Pt states that he feels comfortable with going home tomorrow. Dr. Solano discusses IV antibiotics post-DC with pt, and pt will be able to come to [facility] for this. Physical exam stable. Pt sees Dr. Borden regularly. 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 Revascularize appreciated per Dr. Roy Monitor creatinine monitor sugars Check labs Rocephin via picc Consult Dr. Otto for wound care Reduce Fentanyl to 50 mics TID prn to titrate down Likely DC tomorrow Scribed by Kevin Huff under the direct supervision of Dr. Solano. ABIODUN SOLANO DO Jul 04, 2016 10:31
[2016-07-04 10:44] LABS: BASOPHILS % (AUTO) 0 % (0-10); EOSINOPHILS # (AUTO) 0.4 10^3/uL (0.0-0.3); EOSINOPHILS % (AUTO) 5 % (0-10); LYMPHOCYTES # (AUTO) 1.4 X 10^3 (1.0-4.0); LYMPHOCYTES % (AUTO) 18 % (12-44); MEAN CORPUSCULAR HEMOGLOBIN 29 PG (25-34); MEAN CORPUSCULAR HGB CONC 33 G/DL (32-36); MEAN CORPUSCULAR VOLUME 88 FL (80-99); MEAN PLATELET VOLUME 10.9 FL (7.4-10.4); MONOCYTES # (AUTO) 0.6 X 10^3 (0.0-1.0); MONOCYTES % (AUTO) 8 % (0-12); NEUTROPHILS # (AUTO) 5.2 X 10^3 (1.8-7.8); NEUTROPHILS % (AUTO) 69 % (42-75); PLATELET COUNT 154 10^3/uL (130-400); RED BLOOD COUNT 3.03 10^6/uL (4.35-5.85); RED CELL DISTRIBUTION WIDTH 13.5 % (10.0-14.5); WHITE BLOOD COUNT 7.6 10^3/uL (4.3-11.0)
[2016-07-04 11:09] LABS: ALANINE AMINOTRANSFERASE 15 U/L (0-55); ALBUMIN 2.3 G/DL (3.2-4.5); ANION GAP 7 MMOL/L (5-14); ASPARTATE AMINO TRANSFERASE 22 U/L (5-34); BILIRUBIN,TOTAL 0.4 MG/DL (0.1-1.0); BLOOD UREA NITROGEN 12 MG/DL (7-18); BUN/CREATININE RATIO 11; CALCIUM 7.9 MG/DL (8.5-10.1); CARBON DIOXIDE 24 MMOL/L (21-32); CHLORIDE 106 MMOL/L (98-107); CREATININE SERUM 1.12 MG/DL (0.60-1.30); GFR ESTIMATED > 60; GLUCOSE 137 MG/DL (70-105); POTASSIUM 3.4 MMOL/L (3.6-5.0); SODIUM 137 MMOL/L (135-145); TOTAL PROTEIN 5.1 G/DL (6.4-8.2)
[2016-07-04] MEDS: cefTRIAXone 2 GM/NS 50 ML IVPB IV SCH ×2 (12:37)
[2016-07-04] MEDS ORDERED: fentaNYL INJECTION 100 MCG/2 ML AMP IVP PRN (13:00)
[2016-07-04] MEDS: SIMvastatin 10 MG (ZOCOR) TAB PO SCH (20:50)
[2016-07-04] MEDS: inSUlin DETERMIR 1 UNIT/0.01 ML (LEVEMIR) CHARGE PER UNIT SQ SCH (20:57)
[2016-07-05 00:20] VITALS: BP 129/65
[2016-07-05] MEDS: NS IV 1000 ML 1,000 ML IV SCH (02:03)
[2016-07-05] MEDS: HYDROcodone/APAP 10 MG/325 MG (LORTAB) TAB PO PRN ×2 (03:36→09:04)
[2016-07-05 03:57] VITALS: BP 179/84
[2016-07-05 06:10] LABS: MEAN PLATELET VOLUME 10.8 FL (7.4-10.4); RED BLOOD COUNT 3.24 10^6/uL (4.35-5.85); RED CELL DISTRIBUTION WIDTH 13.8 % (10.0-14.5); WHITE BLOOD COUNT 8.3 10^3/uL (4.3-11.0)
[2016-07-05] MEDS: LEVOTHYROXINE 100 MCG (LEVOTHROID) TAB PO SCH (06:23)
[2016-07-05] MEDS: OMEGA 3 (FISH OIL) 1000 MG CAP PO SCH (06:23)
[2016-07-05] MEDS: inSUlin ASPART (NovoLOG) 1 UNIT/0.01 ML (CHARGE PER UNIT) SC SCH ×2 (06:25→11:00)
[2016-07-05 06:30] LABS: CREATININE SERUM 1.36 MG/DL (0.60-1.30); POTASSIUM 3.6 MMOL/L (3.6-5.0)
[2016-07-05 08:00] VITALS: BP 174/84
[2016-07-05] MEDS ORDERED: CFTR1PB IV (08:58)
[2016-07-05] MEDS ORDERED: AMLO10TA2 PO (08:58)
[2016-07-05] MEDS: ASPIRIN E.C. 81 MG (ECOTRIN) TAB PO SCH (09:04)
[2016-07-05] MEDS: CLOPIDOGREL 75 MG (PLAVIX) TABLET PO SCH (09:04)
[2016-07-05] MEDS: ISOSORBIDE MONONITRATE 30 MG (IMDUR) TAB PO SCH (09:04)
[2016-07-05] MEDS: amLODIPine 10 MG (NORVASC) TAB PO SCH (09:05)
--- NOTE | 2016-07-05 09:44 | Cardiology Progress Note ---
Subjective Subjective/Events-last exam patient is laying down in bed, feeling well. Asking to go home. Denied any chest pain. Review of Systems General: No Chills, No Night Sweats, No Fatigue, No Malaise, No Appetite, No Other HEENT: No Head Aches, No Visual Changes, No Eye Pain, No Ear Pain, No Dysphasia , No Sinus Congestion, No Post Nasal Drip, No Sore Throat, No Other Pulmonary: No Dyspnea, No Cough, No Pleuritic Chest Pain, No Other Cardiovascular: No: Chest Pain, Edema, Lt Headedness, Orthopnea, Other, Palpitations, Paroxysmal Noc. Dyspnea Objective-Cardiology Exam Last Set of Vital Signs Vital Signs 07/05/16 08:00 Temp 97.2 Pulse 63 Resp 20 B/P (MAP) 174/84 Pulse Ox 97 O2 Delivery Room Air Capillary Refill : Less Than 3 Seconds I&O Intake and Output 07/05/16 00:00 Intake Total 3540 ml Output Total 650 ml Balance 2890 ml Intake Oral 1840 ml IV Total 1100 ml Other 600 ml Output Urine Total 650 ml # Voids 7 # Bowel Movements 1 General: Alert, Oriented X3, Cooperative HEENT: Atraumatic, PERRLA Neck: Supple, No JVD, No Thyromegaly Lungs: Clear to Auscultation, Normal Air Movement Heart: Regular Rate, Normal S1, Normal S2, Other Abdomen: Normal Bowel Sounds, Soft, No Tenderness, No Hepatosplenomegaly, No Masses Extremities: No Cyanosis, Other (erythema and ulcer on the left foot, right foot is covered, had recent amputation.) Skin: No Breakdown, Other (ulcers on the legs) Neuro: Normal Speech, Normal Tone, Sensation Intact Psych/Mental Status: Mental Status NL, Mood NL Results Lab Laboratory Tests 07/04/16 10:35 07/05/16 05:45 A/P-Cardiology Admission Diagnosis Nonhealing wound BLE PVD CAD HTN Assessment/Plan Nonhealing wound BLE- s/p recent toe amputation to RLE with erythema and drainage to incision site. status post angioplasty to the lower extremities bilaterally, receiving antibiotic at this time, improving. Coronary artery disease, history of CABG 4 in 2008 with cardiac catheterization June 02, [address] Arvizu revealing severe three-vessel [place]asta coronary artery disease with non-bypassed RCA, patent OSBORNE to LAD, patent vein graft to first diag, patent vein graft to first OM. There was occluded jump graft to the second obtuse marginal branch with successful PCI using bare-metal vision stent 3.0 x 28 mm to the second OM. At that time was reported patient staged intervention to the right and third OM branch after gallbladder removal by Dr. Arvizu, had stress test done at [facility] within then and no further intervention was made. Patient was to be scheduled for [facility] with intervention after healing of Left foot ulcer, however, patient did not follow up, Cardiac catheterization was carried out by Dr. Busch in January 2015 and reported as patent OSBORNE to the LAD vein graft to the diagonal artery and vein graft to the obtuse marginal artery, small vessel disease distally, the right coronary artery has severe diffuse disease, Dr. Busch felt that it is high risk for intervention at this time, medical therapy is recommended. Patient will require significant amount of stenting with limited benefit. continue on current medications. Significant peripheral arterial disease, multiple intervention by Dr. Beebe in the past. Extensive workup in the past, had intervention in March [address] Mahmood on the left lower extremity using multiple Supera stents to the SFA and distal femoral artery 6.5 mm in diameter, anterior tibial artery has 3 stents drug-eluting Promus Premier 3.5 mm in diameter and they were expanded to 4 mm, last angiogram was done on May 30, 2016 which showed on the right side subtotal occlusion of the anterior tibial artery, severe disease at the posterior tibial and peroneal artery and distal popliteal artery successful balloon angioplasty to the anterior tibial artery using 2.0 then 3.0 balloon with excellent results, balloon angioplasty to the popliteal artery using Lutonix 4.018 mm with excellent results. Patient has stent extending throughout the left SFA down to the popliteal and common femoral artery, good flow, at the trifurcation there is occlusion of stents in the anterior tibial artery, the posterior tibial artery and peroneal arteries were occluded. Peripheral angiogram was done on July 02, 2016, balloon angioplasty to the anterior tibial artery with excellent result.second intervention was done today on July 04, 2016 showing 50 mmHg gradient across the distal SFA, successful balloon angioplasty using drug-coated balloon Lutonix 6x150 with excellent results, the anterior tibial artery on the right lower extremity is patent down to the foot. Fractured port s/p fluoroscopy with retrieval of fractured lead, recovered well , the port itself was removed by Dr. Chicas. Chest pain, atypical, improved significantly since starting Imdur. Hypertension, restart home blood pressure medication and continue to monitor. Hyperlipidemia, continue to monitor. Diabetes mellitus, followed and monitored by primary care physician. Chronic renal insufficiency, start patient on IVF's and continue to monitor renal function. Tobaccoism, occasional smoking, educated on avoiding any tobacco product. Mild bilateral nonobstructive carotid artery stenosis, last carotid ultrasound was done June 26, 2016, continue to monitor. History of Noncompliance with medications, educated about compliance with medication. Okay for discharge by cardiology, follow-up in my office in 2 weeks Clinical Quality Measures DVT/VTE Risk/Contraindication: Risk Factor Score Per Nursin RFS Level Per Nursing on Admit: 2=Moderate Contraindications-Pharm: Other *list below* Contraindications-Mechi: Other *list below* Other: needs surgery and lower ext infections JORDEN GREER MD Jul 05, 2016 09:44
--- NOTE | 2016-07-05 09:49 | Discharge Instructions ---
Discharge Instructions Discharge Medications New, Converted or Re-Newed RX: Transmitted to Pharmacy New Medications: Ceftriaxone Sod (Ceftriaxone) 1 Gm/Vial Soln 2 GM IV DAILY for 45 Days, EA Amlodipine Besylate (Amlodipine Besylate) 10 Mg Tablet 10 MG PO DAILY, #30 TAB Continued Medications: Aspirin (Aspirin EC) 81 Mg Tablet.dr 81 MG PO DAILY, TAB Clopidogrel Bisulfate (Plavix 75 Mg) 75 Mg Tablet 75 MG PO DAILY, TAB Hydrocodone Bit/Acetaminophen (Hydrocodon-Acetaminophn 10-325) 1 Each Tablet 1 TAB PO QID PRN for MODERATE PAIN, TAB Insulin Aspart (Novolog Pen) 100 Unit/1 Ml Insuln.pen 30-34 UNITS SQ TIDWM, EA Insulin Determir (Levemir Pen) 100 U/Ml Insuln.pen 34-40 UNIT SQ DAILY, EA Isosorbide Mononitrate (Isosorbide Mononitrate ER) 30 Mg Tab.er.24h 30 MG PO DAILY, TAB Levothyroxine Sodium (Levothyroxine 200 Mcg Tab) 200 Mcg Tablet 200 MCG PO DAILY, TAB Lovastatin (Lovastatin) 20 Mg Tablet 20 MG PO DAILY, TAB Nitroglycerin (Nitrostat) 0.4 Mg Tab.subl 0.4 MG SL UD PRN for CHEST PAIN, TAB [place] 3 Polyunsat Fatty Acids (Fish Oil 1,000 mg Capsule) 1,000 Mg Cap 1000 MG PO DAILY, CAP Discontinued Medications: Sulfamethoxazole/Trimethoprim (Bactrim 400-80 mg Tablet) 1 Each Tablet 1 TAB PO BID, #14 TAB 7 DAY THERAPY FILLED 06-26-16 Patient Instructions Patient Instructions: Report to [facility] every day for Rocephin 2grams IV for the next 6 weeks Activity & Diet Discharge Diet: ADA Diet, Cardiac Diet Activity as Tolerated: Yes ABIODUN SOLANO DO Jul 05, 2016 09:49
[2016-07-05] MEDS: cefTRIAXone 2 GM/NS 50 ML IVPB IV SCH ×2 (10:20)
--- NOTE | 2016-07-05 10:38 | Discharge Summary-Hospitalist ---
Diagnosis/Chief Complaint Date of Admission Jun 28, 2016 at 13:05 Date of Discharge Discharge Date: Jul 05, 2016 Admission Diagnosis Assessment: Bilateral diabetic foot infections likely osteomyelitis may need amputation versus revascularization to attempt wound care Diabetes mellitus insulin-dependent CAD previous bypass Peripheral vascular disease severe Previous and current smoker stops periodically Hypertension Hyperlipidemia Chronic pain Chronic renal insufficiency Discharge Diagnosis Assessment: Bilateral diabetic foot infections s/p revascularization to attempt increase in wound care success Diabetes mellitus insulin-dependent CAD previous bypass Peripheral vascular disease severe Previous and current smoker stops periodically Hypertension Hyperlipidemia Chronic pain Chronic renal insufficiency Chart Review: No fever Vitals stable 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 Otto. Pt is consistently requesting Fentanyl, and RN would like to decrease dosage. Picc line working well. SW Review: Angiogram scheduled for today due to possible clot in order to improve blood flow Pt considered for DC today with Rocephin Patient Interview: Pt states that he is feeling improved today. Dr. Solano informs pt that his Fentanyl dosage will be reduced, and pt is agreeable with this. Pt states that he has a small supply of pain meds at home. Pt states that he feels comfortable with going home tomorrow. Dr. Solano discusses IV antibiotics post-DC with pt, and pt will be able to come to [facility] for this. Physical exam stable. Pt sees Dr. Borden regularly. AFVSS Pleasant, O x 3 RRR, CTAB no edema Assessment: Bilateral diabetic foot infections s/p revascularization to attempt increase in wound care success Diabetes mellitus insulin-dependent CAD previous bypass Peripheral vascular disease severe Previous and current smoker stops periodically Hypertension Hyperlipidemia Chronic pain Chronic renal insufficiency Plan: PICC line maintainer section IV antibiotics Rocephin 08/09/16 last dose 6 weeks? Revascularize appreciated per Dr. Roy Monitor creatinine monitor sugars Check labs Rocephin via picc Consult Dr. Otto for wound care Reduce Fentanyl to 50 mics TID prn to titrate down Likely DC tomorrow Scribed by Kevin Huff under the direct supervision of Dr. Solano. Reason Hospital Visit/Course CC: Foot infection HPI: This is a 55yoWM clinic pt of mine with hx of CAD previous bypass, PVD, CRI that presents to hospital as a direct admit for wound care. Pt with multiple DM foot wounds in need of IV ABX so placed on Zosyn and Vanc and Dr. Roy is attempting to revascularize on Saturday. 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 Pt had port removed today. PICC line has been placed. Scribed by Keaton Hawley under the direct supervision of Dr. Solano. Notes from 07/05/16: Patient Interview: Pt states that he is ready to go home, and Dr. Solano informs pt that this is possible with a follow-up. Physical exam stable. Pt has Plavix. No fever, vital signs stable, pleasant, improved Regular rate and rhythm, clear to auscultation bilaterally No edema and dressings are intact on feet Plan: Outpatient for Rocephin daily Maintain wound care Follow-up with Dr. Solano and Dr. Roy Scribed by Kevin Huff under the direct supervision of Dr. Solano. Hospital course: Patient had a lengthy hospital course he was admitted directly from wound care due to infected diabetic ulcers in addition needed revascularization by Dr. Roy to have any type of success for wound care or he would need amputations. Diabetes was managed on his home insulin dose along with high blood pressure medication and overall patient improved wound care was initiated with good success and Rocephin of 2 g IV daily will be maintained for a total of 6 weeks due to the deep seated infection and long-term diabetic ulcerations that continue to plague the patient but ultimately is at high risk for amputations and he will be compliant with medical management and follow-up care. Discharge Summary Discharge Physical Examination Allergies: Coded Allergies: oxycodone HCl (Unverified Allergy, Unknown, HAS RECEIVED HYDROMORPHONE W/ O ISSUE, 05/21/14) protamine (Unverified Allergy, Unknown, 04/23/14) Vitals & I&Os Vital Signs Date Time Temp Pulse Resp B/P (MAP) Pulse Ox O2 Delivery O2 Flow Rate FiO2 07/05/16 08:00 97.2 63 20 174/84 97 Room Air Hospital Course Labs (last 24 hrs) Laboratory Tests 07/04/16 11:01: Glucometer 137H 07/04/16 16:17: Glucometer 246H 07/04/16 20:34: Glucometer 162H 07/05/16 05:37: Glucometer 227H 07/05/16 05:45: White Blood Count 8.3, Red Blood Count 3.24L, Hemoglobin 9.1L, Hematocrit 28L, Mean Corpuscular Volume 88, Mean Corpuscular Hemoglobin 28, Mean Corpuscular Hemoglobin Concent 32, Red Cell Distribution Width 13.8, Platelet Count 174, Mean Platelet Volume 10.8H, Sodium Level 136, Potassium Level 3.6, Chloride Level 105, Carbon Dioxide Level 20L, Anion Gap 11, Blood Urea Nitrogen 13, Creatinine 1.36H, Estimat Glomerular Filtration Rate 54, BUN/Creatinine Ratio 10 , Glucose Level 219H, Calcium Level 8.0L Microbiology 06/28/16 Blood Culture - Final, Complete No growth 06/28/16 MRSA Screen - Final, Complete MRSA not isolated Pending Labs Laboratory Tests 07/05/16 05:37: Glucometer 227 07/05/16 05:45: White Blood Count 8.3, Red Blood Count 3.24, Hemoglobin 9.1, Hematocrit 28, Mean Corpuscular Volume 88, Mean Corpuscular Hemoglobin 28, Mean Corpuscular Hemoglobin Concent 32, Red Cell Distribution Width 13.8, Platelet Count 174, Mean Platelet Volume 10.8, Sodium Level 136, Potassium Level 3.6, Chloride Level 105, Carbon Dioxide Level 20, Anion Gap 11, Blood Urea Nitrogen 13, Creatinine 1.36, Estimat Glomerular Filtration Rate 54, BUN/Creatinine Ratio 10 , Glucose Level 219, Calcium Level 8.0 Discharge Home Medications: Active Scripts Active Ceftriaxone (Ceftriaxone Sod) 1 Gm/Vial Soln 2 Gm IV DAILY 45 Days Amlodipine Besylate 10 Mg Tablet 10 Mg PO DAILY Reported Bactrim 400-80 mg Tablet (Sulfamethoxazole/Trimethoprim) 1 Each Tablet 1 Tab PO BID 7 DAY THERAPY FILLED 06-26-16 Fish Oil 1,000 mg Capsule ([place] 3 Polyunsat Fatty Acids) 1,000 Mg Cap 1,000 Mg PO DAILY Aspirin EC (Aspirin) 81 Mg Tablet.dr 81 Mg PO DAILY Isosorbide Mononitrate ER (Isosorbide Mononitrate) 30 Mg Tab.er.24h 30 Mg PO DAILY Lovastatin 20 Mg Tablet 20 Mg PO DAILY Hydrocodon-Acetaminophn 10-325 (Hydrocodone Bit/Acetaminophen) 1 Each Tablet 1 Tab PO QID PRN Novolog Pen (Insulin Aspart) 100 Unit/1 Ml Insuln.pen 30-34 Units SQ TIDWM Levemir Pen (Insulin Detemir) 100 U/Ml Insuln.pen 34-40 Unit SQ DAILY Levothyroxine 200 Mcg Tab (Levothyroxine Sodium) 200 Mcg Tablet 200 Mcg PO DAILY Nitrostat (Nitroglycerin) 0.4 Mg Tab.subl 0.4 Mg SL UD PRN Plavix 75 Mg (Clopidogrel Bisulfate) 75 Mg Tablet 75 Mg PO DAILY Instructions to patient/family Please see electonic discharge instructions given to patient. Clinical Quality Measures DVT/VTE Risk/Contraindication: Risk Factor Score Per Nursin RFS Level Per Nursing on Admit: 2=Moderate Contraindications-Pharm: Other *list below* Contraindications-Mechi: Other *list below* Other: needs surgery and lower ext infections ABIODUN SOLANO DO Jul 05, 2016 10:38
[2016-07-05 12:00] VITALS: BP 132/71
--- NOTE | 2016-07-05 14:06 | PROCEDURE REPORT ---
PROCEDURE PHYSICIAN: JORDEN GREER PERIPHERAL ANGIOGRAM DATE OF PROCEDURE: 07/04/2016 REFERRING PROCEDURE: Dr Borden. BRIEF HISTORY: Mr. Valera is a 55-year-old gentleman with extensive peripheral arterial disease. He underwent intervention on his left lower extremity on July 02, 2016. It was noted that he had significant SFA lesion on the right lower extremity. He had reintervention on the anterior tibial artery with good results. I decided to proceed with intervention on the SFA due to poor healing wound in his right foot post surgery. In addition, he had an ulcer on his left lower extremity that requires intervention. PROCEDURE NOTE: After explaining the procedure to the patient, all pros and cons were explained. All questions were answered. The patient signed a consent, then he was placed on the cardiac catheterization laboratory. The left groin was prepped in a sterile fashion. Local anesthesia applied to the left groin. 6-Rwandan sheath was placed in the left femoral artery. Rim catheter was advanced to the bifurcation. Then a Storq catheter advanced distally. Rim catheter was placed in the common iliac artery and I proceeded with runoff to the right lower extremity. Then I advanced Storq wire, down to the tibioperoneal artery, then advanced straight catheter all the way down to the tibial peritoneal artery. At that time I proceeded with angiogram of the anterior tibial artery at its origin and a second imaging was done at the ankle. Angiogram was done with 50/50 contrast and saline; minimal total of 2.5 cc of contrast with each injection. At that point I flushed the catheter then measured the pressure of the tibioperoneal trunk, and it was 124/66 with mean of 90. Pulled down to the popliteal artery, which was 122/66, mean of 89 then I pulled back to the distal SFA and the pressure was higher at 138/67, mean of 95, mid SFA was 178/69 with a mean of 114. The pressure gradient across the distal SFA and popliteal artery was 50 mmHg I decided to proceed with percutaneous intervention. Using drug coated balloon the patient was given 5000 units of heparin then Lutonix 6.0 x 150 mm was advanced to the popliteal artery and distal SFA, inflated. It appeared to be capturing the lesion well at its nominal position for 3 minutes. Angiogram showed excellent results. It was pulled again to the distal and mid SFA, just a second gentle inflation. Angiogram at the end of the procedure showed excellent results. The sheath was exchanged into a short 6-Rwandan sheath, then I did controlled automated runoff to the left lower extremity using 8 milliliters of contrast. At the end of the procedure, sheath was removed. Mynx device deployed total contrast used in this procedure was 32 mL, total radiation exposure was 126 mGy. FINDINGS: ANATOMY: 1. Left lower extremity runoff: The left lower extremity runoff showed patent stent in the SFA extending into the common femoral artery, moderate disease in the distal SFA and popliteal artery. The anterior tibial artery has excellent runoff down to the foot. 2. Right lower extremity runoff: Right lower extremity runoff was done at multiple segments up at the common iliac artery and then down to the popliteal artery then another injection at the tibioperoneal trunk. It showed severe disease at the distal SFA and popliteal artery. Successful balloon angioplasty using a drug coated balloon with Lutonix 6.0 x 150 mm then second inflation at the mid SFA with excellent results. CONCLUSION: 1. Severe stenosis at the distal SFA and popliteal artery with a 50 mm of pressure gradient. Successful drug coated balloon angioplasty using Lutonix 6.0 x 150 mm with gentle inflations with excellent results. The mid SFA was dilated using the same balloon at gentle inflations up to 6 mm with excellent results. The anterior tibial artery is patent. 2. Left lower extremity runoff was done showing moderate disease beyond the stent in the distal SFA and popliteal artery. The anterior tibial artery is patent with excellent flow distally. Job ID: [id number] Dictated Date: 07/04/2016 09:18:27 Shampoo Person Date: 07/04/2016 12:33:39 / kjs <Dictated by JORDEN GREER MD> <Electronically signed by JORDEN GREER MD> 07/04/16 2423
--- NOTE | 2016-07-18 19:45 | Physician Query ---
PQ-Further Specificity Admission/Discharge Admission Date: Jun 28, 2016 at 13:05 Discharge Date: Jul 05, 2016 at 12:35 The medical record reflects the following clinical scenario: History/Risk Factors: diabetic foot infections Clinical Findings: diabetic foot infections Treatment: IV antibiotics, Dilation by Balloon Question: Can you further specify diabetic ulcers per the clinical indicators above? Please document below. 1. Please clarify specific location and type of each ulcer: 2. Please clarify any complications of the amputation site, for example ulcer or infection? 3. What was the principal reason for admission? PHYSICIAN RESPONSE Can you specify per above: 1 (left foot, infection with osteomyelitis and this was the primary reason for admit) Please remember a lack of response to the above will prompt a phone page by [facility]I/ coding staff. In responding to this query, please exercise your independent professional judgment. The purpose of this communication is to more accurately reflect the complexity of your patients condition. The fact that a question is asked does not imply that any particular answer is desired or expected. Thank you for your timely response to this clarification. Requestors name: Karyn Phone # [phone] THIS PHYSICIAN QUERY FORM IS A PERMANENT PART OF THE MEDICAL RECORD KARYN JEFFERSON Jul 18, 2016 19:45 ABIODUN SOLANO DO Jul 19, 2016 08:12
--- OUTSIDE RECORDS SUMMARY | 2016-07-29 21:27 | XMS REPORT | Continuity of Care Document ---
Author Author [facility] Organization [facility] Address Unknown Phone Unavailable Care Team Providers Care Digital Media Designer Name Role Phone Jemal Chaudhary PCP [phone] Source Comments Some departments are not documenting in the electronic medical record. If you do not see the information that you expected, contact Release of Information in the Health Information Management department at [phone] for further assistance in locating additional records.[facility] Active Allergies and Adverse Reactions Allergen [...] artery disease) Overview: 01/06/09- CABG x 4 ([facility]): Left internal thoracic artery-LAD. SVG-DIAG, SVG-OM1 [...]
--- OUTSIDE RECORDS SUMMARY | 2016-07-29 21:36 | XMS REPORT | Continuity of Care Document ---
Author Author [facility] Organization [facility] Address Unknown Phone Unavailable Allergies Active Description Code Type Severity Reaction Onset Reported/Identified Relationship to Patient Clinical Status Yes BLOOD PRESSURE MED BLOOD PRESSURE MED Mild N/A 06/09/2009 Yes oxycodone HCl [id number] Drug Allergy Unknown N/A 08/30/2010 Yes protamine [id number] Drug Allergy Unknown N/A 04/23/2014 Yes oxycodone HCl [id number] Drug Allergy Unknown HAS RECEIVED HY 05/21/2014 [...] UNSPEC, W CHR KD ST 01/21/2014 FREDDIE BLUM MD Ot 412 OLD MYOCARDIAL INFARCT 01/21/2014 FREDDIE BLUM MD Ot 414.00 CORON ATHEROSCLER NOS TYPE VESSEL, NATIV 01/21/2014 FREDDIE BLUM MD Ot 440.21 ATHEROSCL [place] ARTER EXTREM W INTERMIT 01/21/2014 FREDDIE BLUM [...] 02/11/2014 FREDDIE BLUM MD Ot 440.20 ATHEROSCLEROSIS [place] ARTERIES EXTREMIT 02/11/2014 FREDDIE BLUM MD Ot [...] 02/27/2014 FREDDIE BLUM MD Ot 440.23 ATHEROSCL [place] ARTER EXTREMITIES W ULC 02/27/2014 VIKTORIA QUINTANILLA, [...] EDITH RUTH MD Ot 709.8 03/18/2014 VIKTORIA QUINTANILLA, FREDDIE Traore Ot 250.70 DIAB W PERIPH CIRC DIS, TYPE II OR UNSPE 03/18/2014 FREDDIE BLUM MD Ot 440.23 ATHEROSCL [place] ARTER EXTREMITIES W ULC 03/18/2014 VIKTORIA QUINTANILLA, FREDDIE Traore Ot 443.81 ANGIOPATHY IN OTHER DIS 03/18/2014 FREDDIE BLUM MD Ot 707.15 ULCER OF OTHER PART OF FOOT 04/01/2014 EDITH RUTH MD Ot 250.70 DIAB W PERIPH CIRC DIS, TYPE II OR UNSPE 04/01/2014 EDITH RUTH MD Ot 278.00 OBESITY, NOS 04/01/2014 EDITH RUTH MD Ot 305.1 TOBACCO USE DISORDER 04/01/2014 [...] FREDDIE S Ot 311 05/04/2014 VIKTORIA QUINTANILLA, FERDDIE S Ot 357.2 05/04/2014 VIKTORIA QUINTANILLA, FREDDIE [...] QUINTANILLA, FREDDIE S Ot 250.80 05/05/2014 VIKTORIA QIUNTANILLA, FREDDIE S Ot 272.4 05/05/2014 VIKTORIA QUINTANILLA, FREDDIE S Ot 276.1 05/05/2014 VIKTORIA QUINTANILLA, FREDDIE S Ot 285.9 05/05/2014 VIKTORIA QUINTANILLA, FREDDIE S Ot 305.1 05/05/2014 VIKTORIA QUINTANILLA, [...] FREDDIE BLUM MD S Ot 440.24 ATHEROSCL [place] ARTERIES EXTREMITIES W 05/06/2014 FREDDIE BLUM MD S Ot 443.29 DISSECTION OF OTHER ARTERY 05/06/2014 VIKTORIA QUINTANILLA, FREDDIE Traore Ot 496 CHR AIRWAY OBSTRUCT NEC 05/06/2014 VIKTORIA QUINTANILLA, FREDDIE Traore Ot 511.9 PLEURAL EFFUSION NOS 05/06/2014 VIKTORIA QUINTANILLA, FREDDIE Traore Ot 536.3 GASTROPARESIS 05/06/2014 [...] OF PAST NONCOMPLIANCE 05/06/2014 VIKTORIA QUINTANILLA, FREDDIE Traore Ot V49.72 OTHER TOE(S) AMPUTATION STATUS 05/10/2014 [...] 05/19/2014 SOLANO DO, ABIODUN Ot 305.1 05/19/2014 SOALNO DO, ABIODUN Ot 357.2 05/19/2014 SOLANO DO, [...] 05/20/2014 SOLANO DO, ABIODUN Ot 305.1 05/20/2014 SOALNO DO, ABIODUN Ot 357.2 05/20/2014 SOLANO DO, [...] 05/20/2014 SOLANO DO, ABIODUN Ot 038.9 05/20/2014 SOLAON DO, ABIODUN Ot 250.60 05/20/2014 SOLANO DO, [...] 05/27/2014 ABIODUN SOLANO DO Ot 440.24 ATHEROSCL [place] ARTERIES EXTREMITIES W 05/27/2014 XIOMARA READ ABIODUN [...] INFARCT 06/03/2014 Ot 414.01 CORONARY ATHEROSCLEROSIS OF [place] CORON 06/03/2014 Ot 440.23 ATHEROSCL [place] ARTER EXTREMITIES W ULC 06/03/2014 Ot 443.9 [...] 07/21/2014 SOLANO DO, ABIODUN Ot V58.62 07/21/2014 SOLAON DO, ABIODUN Ot V58.83 07/27/2014 SOLANO DO, ABIODUN Ot V58.62 07/27/2014 SOLANO DO, ABIODUN Ot V58.83 08/02/2014 FLORY QUINTANILLA, EDITH Lane Ot 250.80 DIAB W OTH SPEC MANIFEST, TYPE II OR UNS 08/02/2014 EDITH RUTH MD Ot 305.1 TOBACCO USE DISORDER 08/02/2014 EDITH RUTH MD Ot 440.23 ATHEROSCL [place] ARTER EXTREMITIES W ULC 08/02/2014 EDITH RUTH [...] DO, ABIODUN Ot V58.62 08/20/2014 XIOMARA READ, ABOIDUN Ot V58.83 08/20/2014 XIOMARA DO, ABIODUN Ot [...] DO, ABIODUN Ot V58.69 08/20/2014 SOLANO DO, ABOIDUN Ot V58.83 08/20/2014 VIKTORIA QUINTANILLA, FREDDIE S [...] Aguero Ot 585.9 08/20/2014 BRANDI QUINTANILLA, PHAN Aguero Ot V72.81 08/20/2014 VIKTORIA [...] V58.83 08/20/2014 SOLANO DO, ABIODUN Ot V58.81 08/21/2014 SOLANO DO, ABIODUN Ot [...] VIKTORIA QUINTANILLA, FREDDIE S Ot 041.12 10/07/2014 VIKTORAI QUINTANILLA, FREDDIE S Ot 041.12 10/07/2014 VIKTORIA [...] SOLANO DO, ABIODUN Ot V58.62 10/20/2014 VIKTORIA QUINTANILLA, FREDDIE Traore Ot 244.9 HYPOTHYROIDISM NOS 10/20/2014 [...] FREDDIE Traore Ot V45.81 AORTOCORONARY BYPASS 10/20/2014 VIKTORIA QUINTANILLA, FREDDIE Traore Ot V58.69 OT MED,LT,CURRENT [...] 780.2 10/22/2014 SHAYNA MCKAY Ot 278.00 10/22/2014 SHAYAN MCKAY Ot 401.9 10/22/2014 SHAYNA MCKAY Ot 414.00 10/22/2014 PHAN PAZ MD Ot 414.9 10/22/2014 BRANDI QUINTANILLA, PHAN Aguero Ot 585.9 10/22/2014 PHAN PAZ MD Ot V72.81 10/22/2014 VIKTORIA QUINTANILLA, FREDDIE Traore Ot 440.20 10/22/2014 VIKTORIA QUINTNAILLA, FREDDIE Traore Ot 729.5 10/22/2014 VIKTORIA QUINTANILLA, [...] 10/22/2014 SOLANO DO, ABIODUN Ot V58.83 10/22/2014 SOALNO DO, ABIODUN Ot V58.81 10/22/2014 VIKTORIA QUINTANILLA, [...] QUINTANILLA, FREDDIE Traore Ot V72.84 11/04/2014 FLORY QUINTANILLA, EDITH Lane Ot 707.15 11/04/2014 FLORY QUINTANILLA, [...] MD Ot 996.74 OT COMPL DUE TO [facility] VASCULAR DEVICE, IMP 12/22/2014 FREDDIE [...] Jackson Ot E11.621 03/24/2015 RAVEN QUINTANILLA, MIKHAIL Jackosn Ot L97.422 03/25/2015 RAVEN QUINTANILLA, MIKHAIL Jackson [...] FREDDIE S Ot 729.5 04/14/2015 VIKTORIA QUINTANILLA, FRDEDIE S Ot V64.1 04/14/2015 VIKTORIA QUINTANILLA, FREDDIE [...] ULCER OF RIGHT HEEL AND MIDF 08/25/2015 MIKHALI CARBAJAL MD Ot E11.621 TYPE 2 DIABETES [...] UNSPECIFIED 02/07/2016 PHAN PAZ MD Ot V72.81 DBUP-[id number]-[id number] CARDIOVASCULAR 02/07/2016 FREDDIE BLUM MD Ot 440.20 ATHEROSCLEROSIS [place] ARTERIES EXTREMIT 02/07/2016 FREDDIE BLUM MD Ot [...] V49.72 OTHER TOE(S) AMPUTATION STATUS 02/07/2016 EDITH RUHT MD Ot 250.80 DIAB W OTH SPEC [...] 05/17/2016 MIKHAIL CARBAJAL MD Ot I70.235 ATHSCL [place] ARTERIES OF RIGHT LEG W UL 05/17/2016 MIKHAIL CARBAJAL MD Ot L97.512 NON-PRS CHRONIC ULCER OTH PRT RIGHT FOOT 05/18/2016 MIKHAIL CARBAJAL MD Ot E11.621 TYPE 2 DIABETES MELLITUS WITH FOOT ULCER 05/18/2016 MIKHAIL CARBAJAL MD Ot I70.235 ATHSCL [place] ARTERIES OF RIGHT LEG W UL 05/18/2016 [...] UNSPECIFIED 05/22/2016 PHAN PAZ MD Ot V72.81 YBFO-FUN-PLBYTALWI CARDIOVASCULAR 05/22/2016 VIKTORIA QUINTANILLA, FREDDIE Traore Ot 440.20 ATHEROSCLEROSIS [place] ARTERIES EXTREMIT 05/22/2016 FREDDIE BLUM MD Ot [...] COMPL, TYPE II OR UNSPEC TY 05/22/2016 ABOIDUN SOLANO DO Ot 272.1 PURE HYPERGLYCERIDEMIA 05/22/2016 [...] 05/22/2016 MIKHAIL CARBAJAL MD Ot I70.235 ATHSCL [place] ARTERIES OF RIGHT LEG W UL 05/22/2016 MIKHAIL CARBAJAL MD Ot L97.512 NON-PRS CHRONIC ULCER OTH PRT RIGHT FOOT 05/22/2016 MIKHAIL CARBAJAL MD Ot E11.621 TYPE 2 DIABETES MELLITUS WITH FOOT ULCER 05/22/2016 MIKHAIL CARBAJAL MD Ot I70.235 ATHSCL [place] ARTERIES OF RIGHT LEG W UL 05/22/2016 [...] 05/24/2016 MIKHAIL CARBAJAL MD Ot I70.235 ATHSCL [place] ARTERIES OF RIGHT LEG W UL 05/24/2016 [...] 05/30/2016 MIKHAIL CARBAJAL MD Ot I70.235 ATHSCL [place] ARTERIES OF RIGHT LEG W UL 05/30/2016 MIKHAIL CARBAJAL MD Ot L97.512 NON-PRS CHRONIC ULCER OTH PRT RIGHT FOOT 05/31/2016 JORDEN GREER MD Ot 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 W DIABETIC CENTRAL SUPPLY SUPERVISOR 05/31/2016 JORDEN GREER MD Ot E11.621 TYPE 2 DIABETES MELLITUS WITH FOOT ULCER 05/31/2016 JORDEN GREER MD Ot I12.9 HYPERTENSIVE CHRONIC KIDNEY DISEASE W ST 05/31/2016 JORDEN GREER MD Ot I25.10 ATHSCL HEART DISEASE OF [place] CORONARY 05/31/2016 JORDEN GREER MD Ot I70.235 ATHSCL [place] ARTERIES OF RIGHT LEG W UL 05/31/2016 JORDEN GREER MD Ot L97.519 NON-PRS CHRONIC ULCER OTH PRT RIGHT FOOT 05/31/2016 JORDEN GREER MD Ot N18.9 CHRONIC KIDNEY DISEASE, UNSPECIFIED 05/31/2016 JORDEN GREER MD Ot Z72.0 TOBACCO USE 05/31/2016 JORDEN GREER MD, Ot Z79.4 LONGTERM (CURRENT) USE OF INSULIN 05/31/2016 JORDEN GREER MD Ot Z79.899 OTHER LONGTERM (CURRENT) DRUG THERAPY 05/31/2016 JORDEN GREER MD, Ot Z95.1 PRESENCE OF AORTOCORONARY BYPASS GRAFT 05/31/2016 JORDEN GREER MD, Ot Z95.5 PRESENCE OF CORONARY ANGIOPLASTY IMPLANT 06/06/2016 COREEN CORMIER VENDING MANAGER Ot E11.621 TYPE 2 DIABETES MELLITUS WITH FOOT ULCER 06/06/2016 COREEN CORMIER VENDING MANAGER Ot I70.235 ATHSCL [place] ARTERIES OF RIGHT LEG W UL 06/06/2016 COREEN CORMIER VENDING MANAGER Ot L97.512 NON-PRS CHRONIC ULCER OTH PRT [...] 06/08/2016 MIKHAIL CARBAJAL MD Ot I70.235 ATHSCL [place] ARTERIES OF RIGHT LEG W UL 06/08/2016 MIKHAIL CARBAJAL MD Ot L97.512 NON-PRS CHRONIC ULCER OTH PRT RIGHT FOOT 06/09/2016 BLANCHO DPM, KIARRA Lane Ot D63.8 ANEMIA IN OTHER CHRONIC DISEASES CLASSIF 06/09/2016 MERINCHO DPJesus, KIARRA Lane Ot E03.9 HYPOTHYROIDISM, UNSPECIFIED 06/09/2016 BLANCHO DPM, KIARRA Lane Ot 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 W DIABETIC CENTRAL SUPPLY SUPERVISOR 06/09/2016 BLANCHO DPM, KIARRA Lane Ot I12.9 HYPERTENSIVE CHRONIC KIDNEY DISEASE W ST 06/09/2016 BLANCHO DPM, KIARRA Lane Ot I25.10 ATHSCL HEART DISEASE OF [place] CORONARY 06/09/2016 BLANCHO DPM, KIARRA Lane Ot I96 GANGRENE, NOT ELSEWHERE CLASSIFIED 06/09/2016 MERINCHO DPJesus, KIARRA Lane Ot K21.9 GASTRO-ESOPHAGEAL REFLUX DISEASE WITHOUT 06/09/2016 BLANCHO DPM, KIARRA Lane Ot M21.80 OTHER SPECIFIED ACQUIRED DEFORMITIES OF 06/09/2016 MERINCHO DPM, KIARRA Lane Ot N18.4 CHRONIC KIDNEY DISEASE, STAGE 4 (SEVERE) 06/09/2016 BLANCHO DPM, KIARRA Lane Ot Z79.4 LONGTERM (CURRENT) USE OF INSULIN 06/11/2016 COREEN CORMIER APRN Ot E11.621 TYPE 2 DIABETES MELLITUS WITH FOOT ULCER 06/11/2016 COREEN CORMIER APRN Ot I70.235 ATHSCL [place] ARTERIES OF RIGHT LEG W UL 06/11/2016 COREEN CORMIER APRN Ot L97.512 NON-PRS CHRONIC ULCER OTH PRT RIGHT FOOT 06/14/2016 MIKHAIL CARBAJAL MD Ot E11.621 TYPE 2 DIABETES MELLITUS WITH FOOT ULCER 06/14/2016 MIKHAIL CARBAJAL MD Ot I70.235 ATHSCL [place] ARTERIES OF RIGHT LEG W UL 06/14/2016 MIKHAIL CARBAJAL MD Ot L97.512 NON-PRS CHRONIC ULCER OTH PRT RIGHT FOOT 06/15/2016 JORDEN GREER MD Ot 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 W DIABETIC CENTRAL SUPPLY SUPERVISOR 06/15/2016 JORDEN GREER MD Ot E11.621 TYPE 2 DIABETES MELLITUS WITH FOOT ULCER 06/15/2016 JORDEN GREER MD Ot I12.9 HYPERTENSIVE CHRONIC KIDNEY DISEASE W ST 06/15/2016 JORDEN GREER MD Ot I25.10 ATHSCL HEART DISEASE OF [place] CORONARY 06/15/2016 JORDEN GREER MD Ot I70.235 ATHSCL [place] ARTERIES OF RIGHT LEG W UL 06/15/2016 JORDEN GREER MD, Ot L97.519 NON-PRS CHRONIC ULCER OTH PRT RIGHT FOOT 06/15/2016 JORDEN GREER MD Ot N18.9 CHRONIC KIDNEY DISEASE, UNSPECIFIED 06/15/2016 JORDEN GREER MD Ot Z72.0 TOBACCO USE 06/15/2016 JORDEN GREER MD Ot Z79.4 LONGTERM (CURRENT) USE OF INSULIN 06/15/2016 JORDEN GREER MD, Ot Z79.899 OTHER LONGTERM (CURRENT) DRUG THERAPY 06/15/2016 JORDEN GREER MD, Ot Z95.1 PRESENCE OF AORTOCORONARY BYPASS GRAFT 06/15/2016 JORDEN GREER MD Ot Z95.5 PRESENCE OF CORONARY ANGIOPLASTY IMPLANT 06/20/2016 MIKHAIL CARBAJAL MD Ot E11.621 TYPE 2 DIABETES MELLITUS WITH FOOT ULCER 06/20/2016 MIKHAIL CARBAJAL MD Ot I70.235 ATHSCL [place] ARTERIES OF RIGHT LEG W UL 06/20/2016 MIKHIAL CARBAJAL MD Ot L97.512 NON-PRS CHRONIC ULCER [...] 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 W DIABETIC CENTRAL SUPPLY SUPERVISOR 06/24/2016 JACHO DPKIARRA Lee Ot I12.9 HYPERTENSIVE CHRONIC KIDNEY DISEASE W ST 06/24/2016 JACHO DPMKIARRA Ot I25.10 ATHSCL HEART DISEASE OF [place] CORONARY 06/24/2016 JACHO DPKIARRA Lee Ot I96 [place]ANGR[place], NOT ELSEWHERE CLASSIFIED 06/24/2016 KIARRA ESPAÑA DPM Ot K21.9 GASTRO-ESOPHAGEAL REFLUX DISEASE WITHOUT 06/24/2016 JACHO KIARRA STUART Ot M21.80 OTHER SPECIFIED ACQUIRED DEFORMITIES OF 06/24/2016 JACHO KIARRA STUART Ot N18.4 CHRONIC KIDNEY DISEASE, STAGE 4 (SEVERE) 06/24/2016 JACHO KIARRA STUART Ot Z79.4 COMEDIAN (CURRENT) USE OF INSULIN 06/25/2016 ABIODUN SOLANO DO Ot I87.2 VENOUS INSUFFICIENCY (CHRONIC) (PERIPHER 06/25/2016 ABIODUN SOLANO DO Ot Z45.2 ENCOUNTER FOR ADJUSTMENT AND MANAGEMENT 06/26/2016 COREEN CORMIER APRN Ot E11.621 TYPE 2 DIABETES MELLITUS WITH FOOT ULCER 06/26/2016 COREEN CORMIER APRN Ot I70.235 ATHSCL [place] ARTERIES OF RIGHT LEG W UL 06/26/2016 [...] DO Ot I25.10 ATHSCL HEART DISEASE OF [place] CORONARY 07/02/2016 ABIODUN SOLANO DO Ot I25.2 OLD MYOCARDIAL INFARCTION 07/02/2016 ABIODUN OSLANO DO Ot I65.23 OCCLUSION AND STENOSIS OF [...] PROST 07/02/2016 ABIODUN SOLANO DO Ot Z79.4 COMEDIAN (CURRENT) USE OF INSULIN 07/02/2016 ABIODUN SOLANO [...] ABIODUN Ot I25.10 ATHSCL HEART DISEASE OF [place] CORONARY 07/04/2016 XIOMARA READ ABIODUN Ot I25.2 [...] PROST 07/04/2016 XIOMARA READ ABIODUN Ot Z79.4 COMEDIAN (CURRENT) USE OF INSULIN 07/04/2016 JE SOLANO DOI Ot Z89.431 ACQUIRED ABSENCE OF RIGHT FOOT 07/04/2016 JE SOLANO DOI Ot Z91.14 PATIENT'S OTHER NONCOMPLIANCE WITH MEDIC 07/04/2016 XIOMARA READ ABIODUN Ot Z95.1 PRESENCE OF AORTOCORONARY BYPASS GRAFT 07/04/2016 JE SOLANO DOI Ot E03.9 HYPOTHYROIDISM, UNSPECIFIED 07/04/2016 XIOMARA READ ABIODUN Ot 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 W DIABETIC CENTRAL SUPPLY SUPERVISOR 07/04/2016 XIOMARA READ ABIODUN Ot E11.40 TYPE [...] ABIODUN Ot I25.10 ATHSCL HEART DISEASE OF [place] CORONARY 07/04/2016 XIOMARA READ ABIODUN Ot I25.2 OLD MYOCARDIAL INFARCTION 07/04/2016 XIOMARA READ ABIODUN Ot I65.23 OCCLUSION AND STENOSIS OF [place]AL [place] 07/04/2016 XIOMARA READ ABIODUN Ot I70.0 ATHEROSCLEROSIS OF [place] 07/04/2016 XIOMARA READ ABIODUN Ot I70.235 ATHSCL [place] ARTERIES OF RIGHT LEG W UL 07/04/2016 XIOMARA READ ABIODUN Ot I70.245 ATHSCL [place] ARTERIES OF LEFT LEG W C 07/04/2016 [...] UPPE 07/04/2016 XIOMARA READ ABIODUN Ot Z79.4 LONGTERM (CURRENT) USE OF INSULIN 07/04/2016 XIOMARA READ ABIODUN Ot Z89.431 ACQUIRED ABSENCE OF RIGHT FOOT 07/04/2016 XIOMARA READ ABIODUN Ot Z91.14 PATIENT'S OTHER NONCOMPLIANCE WITH MEDIC 07/04/2016 XIOMARA READ ABIODUN Ot Z95.1 PRESENCE OF AORTOCORONARY BYPASS GRAFT 07/04/2016 XIOMARA READ ABIODUN Ot E03.9 HYPOTHYROIDISM, UNSPECIFIED 07/04/2016 XIOMARA READ ABIODUN Ot 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 W DIABETIC CENTRAL SUPPLY SUPERVISOR 07/04/2016 XIOMARA READ ABIODUN Ot E11.40 TYPE [...] ABIODUN Ot I25.10 ATHSCL HEART DISEASE OF [place] CORONARY 07/04/2016 XIOMARA READ ABIODUN Ot I25.2 OLD MYOCARDIAL INFARCTION 07/04/2016 XIOMARA READ ABIODUN Ot I65.23 OCCLUSION AND STENOSIS OF [place]AL [place] 07/04/2016 XIOMARA READ ABIODUN Ot I70.0 ATHEROSCLEROSIS OF [place] 07/04/2016 ABIODUN SOLANO DO Ot I70.235 ATHSCL [place] ARTERIES OF RIGHT LEG W 07/04/2016 ABIODUN SOLANO DO Ot I70.245 ATHSCL [place] ARTERIES OF LEFT LEG W ULC 07/04/2016 [...] UPPE 07/04/2016 ABIODUN SOLANO DO Ot Z79.4 LONGTERM (CURRENT) USE OF INSULIN 07/04/2016 ABIODUN SOLANO DO Ot Z89.431 ACQUIRED ABSENCE OF RIGHT FOOT 07/04/2016 ABIODUN SOLANO DO Ot Z91.14 PATIENT'S OTHER NONCOMPLIANCE WITH MEDIC 07/04/2016 ABIODUN SOLANO DO Ot Z95.1 PRESENCE OF AORTOCORONARY BYPASS GRAFT 07/05/2016 JORDEN GREER MD Ot 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 W DIABETIC CENTRAL SUPPLY SUPERVISOR 07/05/2016 JORDEN GREER MD Ot E11.621 TYPE 2 DIABETES MELLITUS WITH FOOT ULCER 07/05/2016 JORDEN GREER MD Ot I12.9 HYPERTENSIVE CHRONIC KIDNEY DISEASE W ST 07/05/2016 JORDEN GREER MD, Ot I25.10 ATHSCL HEART DISEASE OF [place] CORONARY 07/05/2016 JORDEN GREER MD, Ot I70.235 ATHSCL [place] ARTERIES OF RIGHT LEG W UL 07/05/2016 JORDEN GREER MD, Ot L97.519 NON-PRS CHRONIC ULCER OTH PRT RIGHT FOOT 07/05/2016 JORDEN GREER MD, Ot N18.9 CHRONIC KIDNEY DISEASE, UNSPECIFIED 07/05/2016 JORDEN GREER MD, Ot Z72.0 TOBACCO USE 07/05/2016 JORDEN GREER MD, Ot Z79.4 LONGTERM (CURRENT) USE OF INSULIN 07/05/2016 JORDEN GREER MD, Ot Z79.899 OTHER LONGTERM (CURRENT) DRUG THERAPY 07/05/2016 JORDEN GREER MD, Ot Z95.1 PRESENCE OF AORTOCORONARY BYPASS GRAFT 07/05/2016 JORDEN GREER MD, Ot Z95.5 PRESENCE OF CORONARY ANGIOPLASTY IMPLANT 07/05/2016 ABIODUN SOLANO DO Ot E03.9 HYPOTHYROIDISM, UNSPECIFIED 07/05/2016 JE SOLANO DOI Ot 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 W DIABETIC CENTRAL SUPPLY SUPERVISOR 07/05/2016 ABIODUN SOLANO DO Ot E11.40 TYPE [...] DOI Ot I25.10 ATHSCL HEART DISEASE OF [place] CORONARY 07/05/2016 JE SOLANO DOI Ot I25.2 OLD MYOCARDIAL INFARCTION 07/05/2016 JE SOLANO DOI Ot I65.23 OCCLUSION AND STENOSIS OF [place]AL [place] 07/05/2016 XIOMARA READ ABIODUN Ot I70.0 ATHEROSCLEROSIS OF [place] 07/05/2016 XIOMARA READ ABIODUN Ot I70.235 ATHSCL [place] ARTERIES OF RIGHT LEG W UL 07/05/2016 XIOMARA READ ABIODUN Ot I70.245 ATHSCL [place] ARTERIES OF LEFT LEG W ULC 07/05/2016 [...] Ot N18.9 CHRONIC KIDNEY DISEASE, UNSPECIFIED 07/05/2016 ABIODUN SOLANO DO Ot T85.618A BREAKDOWN (MECHANICAL) OF INTERNAL PROST 07/05/2016 XIOMARA DO ABIODUN Ot T87.41 INFECTION OF AMPUTATION STUMP, RIGHT UPP 07/05/2016 XIOMARA READ ABIODUN Ot T87.42 INFECTION OF AMPUTATION STUMP, LEFT UPPE 07/05/2016 ABIODUN SOLANO DO Ot Z79.4 LONGTERM (CURRENT) USE OF INSULIN 07/05/2016 XIOMARA READ [...] UNSPECIFIED 07/06/2016 PHAN PAZ MD Ot V72.81 PAYR-FDR-[id number] CARDIOVASCULAR 07/06/2016 VIKTORIA QUINTANILLA, FREDDIE Traore Ot 440.20 ATHEROSCLEROSIS [place] ARTERIES EXTREMIT 07/06/2016 FREDDIE BLUM MD Ot [...] Ot V58.81 FIT/ADJ VASCULAR CATHETER 07/06/2016 FREDDIE LBUM MD Ot 709.8 SKIN DISORDERS NEC 07/06/2016 [...] OF LEFT HEEL AND MIDFO 07/06/2016 KIARRA SEPAÑA DPM Ot E11.621 TYPE 2 DIABETES MELLITUS [...] 07/06/2016 MIKHAIL CARBAJAL MD Ot I70.235 ATHSCL [place] ARTERIES OF RIGHT LEG W UL 07/06/2016 MIKHAIL CARBAJAL MD Ot L97.512 NON-PRS CHRONIC ULCER OTH PRT RIGHT FOOT 07/06/2016 MIKHAIL CARBAJAL MD, Ot E11.621 TYPE 2 DIABETES MELLITUS WITH FOOT ULCER 07/06/2016 MIKHAIL CARBAJAL MD Ot I70.235 ATHSCL [place] ARTERIES OF RIGHT LEG W UL 07/06/2016 MIKHAIL CARBAJAL MD Ot L97.512 NON-PRS CHRONIC ULCER OTH PRT RIGHT FOOT 07/06/2016 MIKHAIL CARBAJAL MD Ot E11.621 TYPE 2 DIABETES MELLITUS WITH FOOT ULCER 07/06/2016 RAVEN MD, MIKHAIL D Ot I70.235 ATHSCL [place] ARTERIES OF RIGHT LEG W UL 07/06/2016 MIKHAIL CARBAJAL MD Ot L97.512 NON-PRS CHRONIC ULCER OTH PRT RIGHT FOOT 07/06/2016 SOLANOABIODUN SNE DO Ot I87.2 VENOUS INSUFFICIENCY (CHRONIC) (PERIPHER [...] ADULT MEDICAL EXAM W/ 07/06/2016 COREEN CORMIER VENDING MANAGER Ot E11.621 TYPE 2 DIABETES MELLITUS WITH FOOT ULCER 07/06/2016 COREEN CORMIER APRN Ot I70.235 ATHSCL [place] ARTERIES OF RIGHT LEG W UL 07/06/2016 COREEN CORMIER APRN Ot L97.512 NON-PRS CHRONIC ULCER OTH PRT RIGHT FOOT 07/06/2016 COREEN CORMIER VENDING MANAGER Ot E11.621 TYPE 2 DIABETES MELLITUS WITH FOOT ULCER 07/06/2016 COREEN CORMIER VENDING MANAGER Ot I70.235 ATHSCL [place] ARTERIES OF RIGHT LEG W UL 07/06/2016 COREEN CORMIER APRN Ot 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 07/06/2016 COREEN CORMIER APRN Ot L97.522 NON-PRS CHRONIC ULCER OTH PRT LEFT FOOT 07/06/2016 COREEN CORMIER APRN Ot N18.3 CHRONIC KIDNEY DISEASE, STAGE 3 ( MODERAT 07/06/2016 COREEN CORMIER VENDING MANAGER Ot T87.43 INFECTION OF AMPUTATION STUMP, RIGHT [...] MD, Ot I25.10 ATHSCL HEART DISEASE OF [place] CORONARY 07/16/2016 JORDEN GREER MD Ot I73.9 PERIPHERAL VASCULAR DISEASE, UNSPECIFIED 07/16/2016 JORDEN GREER MD, Ot N18.9 CHRONIC KIDNEY DISEASE, UNSPECIFIED 07/16/2016 JORDEN GREER MD Ot T82.514A BREAKDOWN (MECHANICAL) OF INFUSION EVE 07/16/2016 JORDEN GREER MD, Ot Z72.0 TOBACCO USE 07/16/2016 JORDEN GREER MD, Ot Z79.4 LONGTERM (CURRENT) USE OF INSULIN 07/16/2016 JORDEN GREER MD, Ot Z79.899 OTHER COMEDIAN (CURRENT) DRUG THERAPY 07/16/2016 JORDEN GREER MD, Ot Z91.19 PATIENT'S NONCOMPLIANCE W [facility] MEDICAL TR 07/16/2016 JORDEN GREER [...] OF OTHER NON-CORONARY VESSEL 04/20/2014 39.90 INSEJ [id number] PERIPHERAL NON-CO 04/20/2014 88.48 CONTRAST ARTERIOGRAM-LEG 04/20/2014 83.45 OTHER MYECTOMY 83.45 OTHER MYECTOMY 83.45 OTHER MYECTOMY 86.04 OTHER SKIN SUBQ I D 05/05/2014 86.04 OTHER SKIN SUBQ I D 05/11/2014 45.16 ESOPHAGOGASTRODUODENOSCOPY [EGD] W/CLOSE 05/20/2014 83.44 OTHER FASCIECTOMY 06/02/2014 86.07 INSERTION OF TOTALLY IMPLANTABLE VASC AC 06/02/2014 83.44 OTHER FASCIECTOMY 07/09/2014 [id number] REMOVAL OF VAD FROM TRUNK SUBCU/FASCIA, 06/29/2016 [id number] DILATION OF LEFT ANTERIOR TIBIAL ARTERY, 07/02/2016 [id number] FLUOROSCOPY OF ABDOMINAL AORTA USING LOW 07/02/2016 [id number] FLUOROSCOPY OF R LOW EXTREM ART USING L 07/02/2016 [id number] FLUOROSCOPY OF L LOW EXTREM ART USING L 07/02/2016 [id number] DILATION OF R FEM ART USING DRUG BLLN, P 07/04/2016 Encounters ACCT No. Visit Date/Time Discharge Status Pt. Type Provider Facility Loc./Unit Complaint [id number] 06/28/2016 13:05:00 2016 12:35:00 DIS Inpatient ABIODUN SOLANO DO [facility] 4TH DIABETIC WOUND INFECTION RENAL FAILURE [id number] 06/28/2016 15:45:00 2016 15:45:00 CAN Preadmit LEIGH ANN FUCHS DO [facility] PREOP PORT REMOVAL [id number] 06/27/2016 14:07:00 2016 18:10:00 DIS Outpatient JORDEN GREER MD [facility] CATH RETREVAL OF PORT [id number] 06/08/2016 10:05:00 2016 13:25:00 DIS Outpatient KIARRA ESPAÑA DPM Via [facility] GANGREEN RIGHT FOOT [id number] 06/07/2016 11:19:00 2016 11:45:00 DIS Outpatient KIARRA ESPAÑA DPM [facility] PREOP RIGHT GANGREENE [id number] 05/30/2016 06:40:00 2016 10:35:00 DIS Outpatient JORDEN GREER MD [facility] CATH PERIPHERAL ANGIOGRAPHY,POSSIBLE PERIPHERAL STENT [id number] 04/27/2016 10:49:00 2016 00:01:00 DIS Outpatient ABIODUN SOLANO DO Via [facility] POOR VENOUS ACCESS [id number] 01/26/2016 10:00:00 2015 00:01:00 DIS Outpatient ABIODUN SOLANO DO [facility] POOR VENOUS ACCESS [id number] 10/26/2015 10:36:00 2015 00:01:00 DIS Outpatient SOLANO ABIODUN READ [facility] POOR VENOUS ACCESS [id number] 09/01/2015 09:26:00 2015 12:00:00 DIS Outpatient MIKHAIL CARBAJAL MD [facility] WOUNDCARE [id number] 08/18/2015 09:35:00 2015 00:01:00 DIS Outpatient MIKHAIL CARBAJAL MD [facility] WOUNDCARE [id number] 05/30/2015 10:13:00 2015 00:01:00 DIS Outpatient MIKHAIL CARBAJAL MD [facility] L FOOT WOUND [id number] 06/30/2015 06:12:00 2015 09:13:00 DIS Outpatient EDITH PETERSEN MD [facility] BAROTRAMMA [id number] 06/28/2015 12:01:00 2015 12:10:00 DIS Outpatient EDITH PETERSEN MD [facility] PREOP BAROTRAMMA [id number] 05/03/2015 10:20:00 2015 10:56:00 DIS Outpatient KIARRA ESPAÑA DPM Via [facility] DIABETIC FOOT ULCER LEFT [id number] 05/25/2015 08:00:00 2015 00:01:00 DIS Outpatient MIKHAIL CARBAJAL MD [facility] WOUNDCARE [id number] 04/01/2015 06:27:00 2015 11:35:00 DIS Outpatient MIKHAIL CARBAJAL MD [facility] SURG RCR WOUND INFECTION [id number] 10/22/2014 07:08:00 2014 00:01:00 DIS Outpatient FREDDIE BLUM MD [facility] SURG RCR MRSA [id number] 11/12/2014 06:36:00 2014 10:05:00 DIS Outpatient FREDDIE BLUM MD [facility] WOUND LEFT FOOT [id number] 11/09/2014 05:44:00 2014 23:59:59 CLS Outpatient FREDDIE BLUM MD [facility] PREOP WOUND LEFT FOOT [id number] 11/08/2014 09:15:00 2014 23:59:59 CLS Outpatient SOLANO ABIODUN READ [facility] LAB CAD,HTN,RENAL INSUF,ANEMIA,PROTEINURIA [id number] 10/22/2014 14:36:00 2014 23:59:59 CLS Outpatient FREDDIE BLUM MD [facility] LABNPT WOUND ON LEFT FOOT [id number] 10/22/2014 08:03:00 2014 10:00:00 DIS Outpatient EDITH RUTH MD [facility] WOUNDCARE [id number] 10/20/2014 06:16:00 2014 10:40:00 DIS Outpatient FREDDIE BLUM MD [facility] PORT REMOVAL AND REPLACEMENT [id number] 10/19/2014 08:30:00 2014 23:59:59 CLS Outpatient EDITH RUTH MD [facility] CARD EROSION OF LEFT FOOT METERASAL [id number] 10/18/2014 06:15:00 2014 23:59:59 CLS Outpatient FREDDIE BLUM MD [facility] PREOP REMOVAL AND REPLACE PORT [id number] 10/12/2014 10:45:00 2014 23:59:59 CLS Outpatient EDITH RUTH MD [facility] RAD LEFT FOOT ULCER,PAD [id number] 09/27/2014 15:14:00 2014 23:59:59 CLS Outpatient FREDDIE BLUM MD [facility] LABNPT [id number] 09/17/2014 07:15:00 2014 13:50:00 DIS Outpatient FREDDIE BLUM MD Via [facility] LEFT FOOT WOUND; DIABETIC ULCER [id number] 09/15/2014 07:00:00 2014 23:59:59 CLS Outpatient FREDDIE BLUM MD [facility] PREOP LEFT FOOT WOUND; DIABETIC ULCER [id number] 08/23/2014 09:46:00 2014 14:55:00 DIS Outpatient FREDDIE BLUM MD Via [facility] WOUND LEFT FOOT [id number] 08/20/2014 13:49:00 2014 23:59:59 CLS Outpatient FREDDIE BLUM MD [facility] PREOP WOUND LEFT FOOT [id number] 08/04/2014 15:21:00 2014 23:59:59 CLS Outpatient SOLANO DO ABIODUN [facility] UNABLE TO ACCESS PORT [id number] 07/05/2014 12:50:00 2014 14:00:00 DIS Outpatient EDITH RUTH MD [facility] WOUNDCARE [id number] 07/12/2014 08:57:00 2014 23:59:59 CLS Outpatient SOLANOFRANCY READ ABIODUN [facility] GLC VANCO THERAPY, WOUND INFECTION [id number] 07/09/2014 16:10:00 2014 14:00:00 DIS Inpatient FREDDIE BLUM MD [facility] SURGICAL GANGRENE LEFT FOOT [id number] 07/08/2014 13:53:00 2014 23:59:59 CLS Outpatient FREDDIE BLUM MD [facility] LABNPT ULCER (L) LATERAL FOOT [id number] 07/08/2014 12:34:00 2014 23:59:59 CLS Outpatient XIOMARA READ ABIODUN [facility] LAB ACUTE OSTEMYLITIS ANKLE AND FOOT , DIABETES [id number] 07/04/2014 23:04:00 2014 23:59:59 CLS Outpatient SOLANO DO ABIODUN [facility] GLC VANCO THERAPY [id number] 07/02/2014 19:25:00 2014 19:51:00 DIS Emergency PHAN BARRERA APRN [facility] ER PORT ISSUES [id number] 06/29/2014 16:00:00 2014 23:59:59 CLS Outpatient SOLANO DO ABIODUN [facility] GLC VANCO THERAPY [id number] 06/23/2014 17:07:00 2014 23:59:59 CLS Outpatient SOLANO DOJEI [facility] GLC VANCO IV THERAPY [id number] 06/20/2014 16:52:00 2014 23:59:59 CLS Outpatient SOLANO DO ABIODUN [facility] GLC VANCO IV THERAPY [id number] 06/17/2014 17:38:00 2014 23:59:59 CLS Outpatient SOLANO DO ABIODUN [facility] GLC VANCO THERAPY [id number] 06/14/2014 16:42:00 2014 23:59:59 CLS Outpatient SOLANO DO ABIODUN [facility] GLC WOUND INFECTION, VANCO THERAPY [id number] 04/19/2014 11:28:00 2014 10:00:00 DIS Inpatient FREDDIE BLUM MD [facility] SURGICAL SEPSIS [id number] 03/16/2014 12:13:00 2014 12:30:00 DIS Outpatient EDITH RUTH MD [facility] WOUNDCARE OPEN AREA LT FOOT [id number] 03/16/2014 16:20:00 2013 14:14:00 DIS Inpatient FREDDIE BLUM MD [facility] SURGICAL LT FOOT WOUND NECROSIS [id number] 02/24/2014 15:07:00 2013 12:25:00 DIS Inpatient FREDDIE BLUM MD [facility] CSD URINARY INSUFFICIENCY [id number] 02/25/2014 14:30:00 2013 23:59:59 CLS Preadmit FREDDIE BLUM MD [facility] CATH ASOD,LEG PAIN [id number] 02/11/2014 08:42:00 2013 10:10:00 DIS Outpatient FREDDIE BLUM MD [facility] CATH ASOD,LEG PAIN [id number] 02/08/2014 08:21:00 2013 23:59:59 CLS Outpatient PHAN PAZ MD [facility] LAB CAD,CKD [id number] 01/18/2014 12:42:00 2013 15:35:00 DIS Inpatient FREDDIE BLUM MD [facility] ICU LOW CREATININE [id number] 01/18/2014 08:49:00 2013 23:59:59 CLS Outpatient FREDDIE BLUM MD [facility] LAB ELEVATED BUN AND CREATINE [id number] 01/14/2014 07:50:00 2013 23:59:59 CLS Outpatient FREDDIE BLUM MD [facility] CATH ASOD,LEG PAIN [id number] 07/29/2013 08:13:00 2013 23:59:59 CLS Outpatient SHAYNA MCKAY [facility] CARD CAD,HTN [id number] 07/27/2016 08:39:00 ACT Outpatient ABIODUN SOLANO DO [facility] INFECTION FOOT [id number] 07/26/2016 09:56:00 ACT Outpatient MIKHAIL CARBAJAL MD [facility] WOUNDCARE [id number] 06/29/2016 09:00:00 PEN Preadmit LEIGH ANN FUCHS DO Via [facility] MALFUNCTIONING PORT [id number] 06/27/2016 11:30:00 ACT Outpatient LEIGH ANN FUCHS DO [facility] RAD FRACTURED PORT LEAD [id number] 06/27/2016 09:37:00 ACT Outpatient COREEN CORMIER APRN [facility] LAB T87.43 [id number] 06/25/2016 10:12:00 ACT Outpatient ABIODUN SOLANO DO [facility] POOR VENOUS ACCESS [id number] 06/05/2016 10:41:00 ACT Outpatient COREEN CORMIER APRN [facility] LAB E11.621 [id number] 05/28/2016 07:33:00 ACT Outpatient ABIODUN SOLANO DO [facility] LAB E11.65,E78.1,E78.0 [id number] 05/24/2016 08:53:00 ACT Outpatient MIKHAIL CARABJAL MD [facility] RAD E11.621,I70.235 [id number] 05/17/2016 09:49:00 ACT Outpatient MIKHAIL CARBAJAL MD [facility] LAB E11.621,170.235 [id number] 02/07/2016 09:42:00 ACT Outpatient ABIODUN SOLANO DO [facility] LAB GENERAL MEDICAL EXAM,TYPE 2 DIABETES,IRON DEF [id number] 08/18/2015 09:43:00 ACT Outpatient MIKHAIL CARBAJAL MD [facility] RAD DIABETES MELLIOUS WITH FOOT ULCER [id number] 08/15/2015 00:08:00 PEN Preadmit MIKHAIL CARBAJAL MD [facility] L FOOT WOUND [id number] 07/05/2015 13:29:00 ACT Outpatient JOE RON DC [facility] RAD LOW BACK PAIN W/ RADIATION INTO R LEG AND HIP [id number] 05/12/2015 10:31:00 ACT Outpatient MIKHAIL CARBAJAL MD [facility] CARD TYPE 2 DIABETES W/FOOT ULCER,CHRONIC ULCER LT HEEL [id number] 04/25/2015 08:52:00 ACT Outpatient KIARRA ESPAÑA DPM [facility] PREOP DIABETIC FOOT ULCER LEFT [id number] 03/18/2015 07:50:00 ACT Outpatient FREDDIE BLUM MD [facility] POOR VENOUS ACCESS [id number] 03/15/2015 09:25:00 ACT Outpatient MIKHAIL CARBAJAL MD [facility] CARD OSTEOMYLITIS LEFT FOOT [id number] 03/10/2015 10:30:00 ACT Outpatient MIKHAIL CARBAJAL MD [facility] LAB TYPE 2 DIABETES MELLITUS WITH FOOT ULCER [id number] 08/20/2014 09:10:00 Document Registration [id number] 08/20/2014 09:10:00 Document Registration [id number] 08/20/2014 09:10:00 Document Registration [id number] 08/20/2014 09:10:00 Document Registration [id number] 06/24/2014 16:36:00 Document Registration [id number] 06/14/2014 07:32:00 Document Registration [id number] 06/08/2014 17:30:00 Document Registration [id number] 06/05/2014 16:29:00 Document Registration [id number] 05/06/2014 10:19:00 ACT Inpatient SOLANO DO, ABIODUN [facility] SURGICAL SWB-LT FOOT GANGRENE, DM , ARF [id number] 01/29/2012 11:21:00 Document Registration [id number] 01/21/2012 12:34:00 Document Registration [id number] 01/18/2012 15:30:00 Document Registration [id number] 11/22/2011 11:35:00 Document Registration [id number] 11/22/2011 10:33:00 Document Registration [id number] 12/20/2010 09:25:00 Document Registration [id number] 08/29/2010 07:28:00 Document Registration [id number] 08/15/2010 11:29:00 Document Registration [id number] 08/14/2010 07:46:00 Document Registration [id number] 11/18/2009 09:22:00 Document Registration [id number] 09/27/2009 10:59:00 Document Registration [id number] 07/04/2009 11:00:00 Document Registration [id number] 06/22/2009 10:00:00 Document Registration [id number] 05/09/2009 11:28:00 Document Registration [id number] 05/02/2009 06:27:00 Document Registration [id number] 04/07/2009 16:00:00 Document Registration [id number] 01/04/2009 10:09:00 Document Registration [id number] 08/07/2005 14:07:00 Document Registration
== END 2016-07-05 12:35 | disposition home or self-care (01) | DRG 253 ==
LOC: 4TH 13:05 → ICU 07-04 09:25 → 4TH 07-04 15:40
PROVIDERS: ADMIT Internal Medicine; ATTEND Internal Medicine
PROC: 0JPT0XZ Removal of Tunneled Vascular Access Device from Trunk Subcutaneous Tissue and Fascia, Open Approach (ICD-10-PCS; 2016-06-29)
PROC: 047Q3ZZ Dilation of Left Anterior Tibial Artery, Percutaneous Approach (ICD-10-PCS; principal; 2016-07-02)
PROC: B4101ZZ Fluoroscopy of Abdominal Aorta using Low Osmolar Contrast (ICD-10-PCS; 2016-07-02)
PROC: B41F1ZZ Fluoroscopy of Right Lower Extremity Arteries using Low Osmolar Contrast (ICD-10-PCS; 2016-07-02)
PROC: B41G1ZZ Fluoroscopy of Left Lower Extremity Arteries using Low Osmolar Contrast (ICD-10-PCS; 2016-07-02)
PROC: 047K3Z1 Dilation of Right Femoral Artery using Drug-Coated Balloon, Percutaneous Approach (ICD-10-PCS; 2016-07-04)
DX: E11.51 Type 2 diabetes mellitus with diabetic peripheral angiopathy without gangrene (principal); E11.621 Type 2 diabetes mellitus with foot ulcer; L97.519 Non-pressure chronic ulcer of other part of right foot with unspecified severity; E11.69 Type 2 diabetes mellitus with other specified complication; M86.9 Osteomyelitis, unspecified; I70.245 Atherosclerosis of native arteries of left leg with ulceration of other part of foot; I70.235 Atherosclerosis of native arteries of right leg with ulceration of other part of foot; T85.618A Breakdown (mechanical) of other specified internal prosthetic devices, implants and grafts, initial encounter; Z89.431 Acquired absence of right foot; I25.10 Atherosclerotic heart disease of native coronary artery without angina pectoris; E11.22 Type 2 diabetes mellitus with diabetic chronic kidney disease; N18.9 Chronic kidney disease, unspecified; E11.40 Type 2 diabetes mellitus with diabetic neuropathy, unspecified; I12.9 Hypertensive chronic kidney disease with stage 1 through stage 4 chronic kidney disease, or unspecified chronic kidney disease; I70.0 Atherosclerosis of aorta; F17.210 Nicotine dependence, cigarettes, uncomplicated; G47.30 Sleep apnea, unspecified; I25.2 Old myocardial infarction; E78.00 Pure hypercholesterolemia, unspecified; K21.9 Gastro-esophageal reflux disease without esophagitis; M19.91 Primary osteoarthritis, unspecified site; M54.9 Dorsalgia, unspecified; E03.9 Hypothyroidism, unspecified; I65.23 Occlusion and stenosis of bilateral carotid arteries; Z79.4 Long term (current) use of insulin; Z95.1 Presence of aortocoronary bypass graft; Z91.14 Patient's other noncompliance with medication regimen
CPT/HCPCS: 36415; 37224; 37228; 71010; 80048; 80053; 80061; 80202; 82962; 83605; 83880; 85025; 85027; 85347; 85610; 85730; 87040; 87081; 94760

== ENCOUNTER 2016-08-09 09:48 | Outpatient (RCR) | payer MEDICARE, OTHER ==
--- OUTSIDE RECORDS SUMMARY | 2016-05-17 08:03 | XMS REPORT | Clinical Summary ---
Author Author User, [employer] Organization [facility] Address Unknown Phone Unavailable Allergies, Adverse Reactions, Alerts Allergy Name Reaction Description Start Date Severity Status Provider TYLOX seizures/coma Critical Active Ivet Colon Conditions or Problems Problem Name Problem Code Onset Date Status Entry Date Provider Comment Standard Description Annotate CELLULITIS 682.9 Active Ivet Colon Cellulitis and abscess of unspecified sites DIABETES MELLITUS, NONINSULIN DEPENDENT (NIDDM) 250.00 Inactive Ivet Colon Diabetes mellitus without mention of complication, type II or unspecified type, not stated as uncontrolled DIABETES MELLITUS, TYPE II, UNCONTROLLED, WITH COMPLICATIONS 250.92 Active Ivet Colon Diabetes mellitus with unspecified complication, type II or unspecified type, uncontrolled FOOT PAIN, LEFT 729.5 Active Ivet Colon Pain in limb HEMATURIA, HX OF V13.09 Resolved Ivet Colon Other personal history of disorders of urinary system SMOKER 305.1 Active Ivet Colon Tobacco use disorder NEUROPATHY, IDIOPATHIC PERIPHERAL 356.9 Active Ivet Colon Unspecified idiopathic peripheral neuropathy HYPOTHYROIDISM, PRIMARY 244.9 Active Ivet Colon Unspecified hypothyroidism COMPRESSION FRACTURE, LUMBAR VERTEBRAE 805.4 Resolved Ivet Colon Closed fracture of lumbar vertebra without mention of spinal cord injury CONSTIPATION, CHRONIC 564.09 Active Ivet oClon Other constipation HEMATURIA 599.7 Resolved Ivet Colon Hematuria PROTEINURIA 791.0 Active Ivet Colon Proteinuria ANEMIA NOS 285.9 Inactive Ivet Colon Anemia, unspecified ANEMIA, IRON DEFICIENCY NEC 280.8 Active Ivet Colon Other specified iron deficiency anemias BLADDER OUTLET OBSTRUCTION 596.0 Resolved Ivet Colon Bladder neck obstruction HYPERCHOLESTEROLEMIA 272.0 Active Ivet Colon Pure hypercholesterolemia HYPERTRIGLYCERIDEMIA 272.1 Active Ivet Colon Pure hyperglyceridemia SEBACEOUS CYST, INFECTED 706.2 Resolved Ivet Colon Sebaceous cyst TESTOSTERONE DEFICIENCY 257.2 Resolved Ivet Colon Other testicular hypofunction MICROALBUMINURIA 791.0 Resolved Ivet Colon Proteinuria RHABDOMYOLYSIS 728.88 Resolved Ivet Colon Rhabdomyolysis RENAL INSUFFICIENCY 593.9 Active Ivet Colon Unspecified disorder of kidney and ureter SYNCOPE 780.2 Resolved Ivet Colon Syncope and collapse HYPERTENSION 401.1 Active Ivet Colon Benign essential hypertension CAD 414.00 Active Ivet Colon Coronary atherosclerosis of unspecified type of vessel, [place] or graft CORONARY ARTERY BYPASS GRAFT, FOUR VESSEL, 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 Ivet Colon Postsurgical aortocoronary bypass status ACUTE OSTEOMYELITIS INVOLVING ANKLE AND FOOT 730.07 Active 06/10 Ivet Colon Acute osteomyelitis involving ankle and foot Medication List Medication Instructions Start Date Stop Date Generic Name NDC Status Provider Patient Instruction ZYVOX 600 MG TABS 1 po BID LINEZOLID 01303305989 Active Ivet Catherine Colon LEVEMIR FLEXPEN 100 UNIT/ML SOPN 50 UNITS SQ DAILY INSULIN DETEMIR Active Ivet Catherine Colon HUMALOG KWIKPEN 100 UNIT/ML SOPN 38 UNITS SQ BEFORE MEALS INSULIN LISPRO (HUMAN) 72468210972 Active Ivet Catherine Colon AMLODIPINE BESYLATE 10 MG TABS 1 PO DAILY AMLODIPINE BESYLATE 18063324182 No Longer Active Ivet Catherine Colon ATENOLOL 25 MG TAB 1 PO BID ATENOLOL 52565271388 Active Ivet Catherine Colon PROTONIX 40 MG TBEC 1 PO BID PANTOPRAZOLE SODIUM 85953907974 No Longer Active Ivet Catherine Colon CELEXA 20 MG TABS 1 PO daily CITALOPRAM HYDROBROMIDE 44561837072 No Longer Active Ivet Catherine Colon ISOSORBIDE MONONITRATE ER 60 MG [id number] 1 PO DAILY ISOSORBIDE MONONITRATE 49702188566 No Longer Active Ivet Catherine Colon ALPRAZOLAM 0.5 MG TABS 1 PO Q 8RS PRN ANXIETY ALPRAZOLAM 88553256256 No Longer Active Ivet Catherine Colon ZOFRAN 4 MG/5ML SOLN 8mg IV Q6hrs prn nausea ONDANSETRON HCL 45641066453 No Longer Active Ivet Catherine Colon MELATONIN 3 MG TABS 1 PO AT HS MELATONIN 71198160290 No Longer Active Ivet Catherine Colon CHELATED ZINC 50 MG TABS 1 PO daily ZINC 09660885563 Active Ivet Catherine Colon ZYVOX 100 MG/5ML SUSR 600mg IV Q12 hours LINEZOLID 44903588453 No Longer Active Ivet Catherine Colon LEVOTHYROXINE SODIUM 200 MCG TABS 1 PO Daily LEVOTHYROXINE SODIUM 65530238006 Active Ivet Catherine Colon HYDROCODONE-ACETAMINOPHEN 10-325 MG TABS 1 PO Q 4 HRS PRN PAIN HYDROCODONE-ACETAMINOPHEN 32456585236 Active Ivet Catherine Colon CYMBALTA 30 MG CPEP 1 PO BID DULOXETINE HCL 51140300172 No Longer Active Ivet Catherine Colon HYDROCODONE-ACETAMINOPHEN 10-325 MG TABS 1 TAB PO BID PRN PAIN HYDROCODONE-ACETAMINOPHEN 65478775803 No Longer Active Ivet Catherine Colon WELLBUTRIN 75 MG TABS 1 PO BID BUPROPION HCL 26629257097 No Longer Active Ivet Catherine Colon NORVASC 5 MG TABS 1 PO DAILY AMLODIPINE BESYLATE 09755902180 No Longer Active Ivet Catherine Colon NOVOLOG FLEXPEN 100 UNIT/ML SOPN 38 UNITS SQ AC PRN MEALS INSULIN ASPART 56407588287 No Longer Active Ivet Catherine Colon NITROSTAT 0.4 MG SUBL SL DAILY PRN CHEST PAIN NITROGLYCERIN 25271364695 Active Ivet Catherine Colon LOVASTATIN 20 MG TABS 1 PO DAILY LOVASTATIN 71243712086 Active Ivet Catherine Colon PLAVIX 75 MG TABS 1 PO DAILY CLOPIDOGREL BISULFATE 24135917726 Active Ivet Catherine Colon ASPIRIN 325 MG TABS 1 PO DAILY ASPIRIN 71876029202 Active Ivet Catherine Colon SUCRALFATE 1 GM TABS 1 PO AC HS SUCRALFATE 69776969907 Active Ivet Catherine Colon REGLAN 5 MG TABS 1 PO BID AC MEALS METOCLOPRAMIDE HCL 00539404803 Active Ivet Catherine Colon PROPOXYPHENE N-APAP 100-650 MG TABS 1-2 PO Q4hrs prn pain PROPOXYPHENE N-APAP 33349607271 No Longer Active Ivet Catherine Colon METOPROLOL TARTRATE 50 MG TAB 1 PO daily. METOPROLOL TARTRATE 76901465162 No Longer Active Ivet Catherine Colon PLAVIX 75 MG TABS 1 PO QD CLOPIDOGREL BISULFATE 13680261271 No Longer Active Ivet Catherine Colon ASPIRIN 81 MG TAB 1 PO daily ASPIRIN 98386815545 No Longer Active Ivet Catherine Colon TESTOSTERONE CREAM Apply daily TESTOSTERONE CREAM No Longer Active Ivet Catherine Colon PEN NEEDLES 5/16" 31G X 8 MM MISC as directed INSULIN PEN NEEDLE 02534529633 No Longer Active Ivet Catherine Colon WELLBUTRIN SR 150 MG TBCR 1 PO BID BUPROPION HCL No Longer Active Ivet Catherine Colon PERCOCET 5-325 MG TABS 1-2 PO Z9oykdg prn pain OXYCODONE-ACETAMINOPHEN 51550454294 No Longer Active Ivet Catherine Colon NEURONTIN 100 MG CAPS 1 by mouth 3 times a day GABAPENTIN 11853977957 No Longer Active Ivet Catherine Colon SYNTHROID 150 MCG TABS 1 PO daily on empty stomach LEVOTHYROXINE SODIUM 26122475000 No Longer Active Ivet Catherine Colon LOVASTATIN 40 MG TABS 1 PO daily for cholesterol LOVASTATIN 68887776475 No Longer Active Ivet Catherine Colon LOTENSIN 20 MG TABS 1 PO daily BENAZEPRIL HCL 40800302476 No Longer Active Ivet Catherine Colon HUMULIN 70/30 PEN 70-30 % SUSP 25 units injection BID INSULIN ISOPHANE & REGULAR 02822946669 No Longer Active Ivet Catherine Colon SYNTHROID 25 MCG TABS 1 PO daily along with 200 mcg tablet to equal 225. 2008 LEVOTHYROXINE SODIUM 74653225748 No Longer Active Ivet Catherine Colon MIRALAX POWD 1 scoop in 4oz of water PO daily POLYETHYLENE GLYCOL 3350 16410417051 No Longer Active Ivet Catherine Colon MICRONASE 5 MG TABS 2 PO at noon GLYBURIDE 17311818679 No Longer Active Ivet Catherine Colon METFORMIN HCL 500 MG TABS 1 PO BID METFORMIN HCL 50051548539 No Longer Active Ivet Catherine Colon NAPROXEN 500 MG TAB 1 PO BID NAPROXEN 44475646641 No Longer Active Ivet Colon Vital Signs Date Name Value Unit Range Description blood pressure, diastolic - 8462-4 74 mm[Hg] BP hernandez blood pressure, systolic - 8480-6 120 mm[Hg] BP sys pulse rate E&M - 8867-4 84 /min Heart rate respiratory rate E&M - 9279-1 14 /min Resp rate temperature E&M 98.5 [degF] Body temperature weight E&M - 3141-9 205 [lb_av] Weight Measured blood pressure, diastolic - 8462-4 77 mm[Hg] BP hernandez blood pressure, systolic - 8480-6 143 mm[Hg] BP sys pulse rate E&M - 8867-4 76 /min Heart rate respiratory rate E&M - 9279-1 14 /min Resp rate temperature E&M 98.6 [degF] Body temperature weight E&M - 3141-9 200 [lb_av] Weight Measured blood pressure, diastolic - 8462-4 84 mm[Hg] BP hernandez blood pressure, systolic - 8480-6 144 mm[Hg] BP sys pulse rate E&M - 8867-4 72 /min Heart rate respiratory rate E&M - 9279-1 14 /min Resp rate temperature E&M 98.6 [degF] Body temperature weight E&M - 3141-9 197 [lb_av] Weight Measured blood pressure, diastolic - 8462-4 70 mm[Hg] BP hernandez blood pressure, systolic - 8480-6 150 mm[Hg] BP sys pulse rate E&M - 8867-4 70 /min Heart rate respiratory rate E&M - 9279-1 14 /min Resp rate temperature E&M 97.6 [degF] Body temperature weight E&M - 3141-9 205 [lb_av] Weight Measured blood pressure, diastolic - 8462-4 60 mm[Hg] BP hernnadez blood pressure, systolic - 8480-6 150 mm[Hg] BP sys pulse rate E&M - 8867-4 78 /min Heart rate respiratory rate E&M - 9279-1 14 /min Resp rate weight E&M - 3141-9 198 [lb_av] Weight Measured blood pressure, diastolic - 8462-4 79 mm[Hg] BP hernandez blood pressure, systolic - 8480-6 125 mm[Hg] BP sys pulse rate E&M - 8867-4 60 /min Heart rate respiratory rate E&M - 9279-1 14 /min Resp rate temperature E&M 97.9 [degF] Body temperature weight E&M - 3141-9 187 [lb_av] Weight Measured blood pressure, diastolic - 8462-4 88 mm[Hg] BP hernandez blood pressure, systolic - 8480-6 140 mm[Hg] BP sys height E&M - 8302-2 70 [in_us] Bdy height pulse rate E&M - 8867-4 78 /min Heart rate respiratory rate Elyse&Jesus - 9279-1 14 /min Resp rate weight Juan Manuel - 3141-9 188 [lb_av] Weight Measured Diagnostic Results Date Name Value Unit Range Description Clinical Lists Update: CBC,CMP,CHOL,TRIG,TSH,FREE T4,HGA1C - Chemistry Estimated Glomerular Filtration Rate (calc) 41 mL/min/1.73m2 albumin, serum 3.5 g/dL anion gap, serum 8 sodium, serum 139 mmol/L triglyceride, serum, fasting 360 mg/dL bilirubin, serum, total 0.3 mg/dL alanine aminotransferase (SGPT), serum 42 U/L aspartate aminotransferase (SGOT), serum 29 U/L protein, total, serum 6.3 g/dL potassium, serum 4.2 mmol/L thyroid stimulating hormone, serum 35.47 u[iU]/mL hemoglobin A1C, blood, as % of total hemoglobin 9.3 % thyroxine, serum, free 0.80 ng/dL creatinine, serum 1.72 mg/dL carbon dioxide, venous blood 22 mmol/L cholesterol, serum 228 mg/dL chloride, serum 109 mmol/L calcium, serum 8.9 mg/dL urea nitrogen, blood 33 mg/dL alkaline phosphatase, serum 96 U/L glucose, plasma fasting 238 mg/dL Clinical Lists Update: CBC,CMP,CHOL,TRIG,TSH,FREE T4,HGA1C - Hematology hematocrit, blood 36 % red blood cell distribution width 15.5 % mean corpuscular volume, RBC 91 fL leukocyte count, blood 8.6 10*3/mm3 erythrocyte (RBC) count 3.93 10*6/mm3 platelet count 172 10*3/mm3 hemoglobin, blood 11.9 g/dL Clinical Lists Update: CBC,CMP,TSH,FREE T4 - Chemistry thyroid stimulating hormone, serum 24.79 u[iU]/mL potassium, serum 4.8 mmol/L thyroxine, serum, free 0.86 ng/dL creatinine, serum 2.1 mg/dL carbon dioxide, venous blood 20.0 mmol/L albumin, serum 3.4 g/dL alkaline phosphatase, serum 126 U/L urea nitrogen, blood 32 mg/dL protein, total, serum 5.8 g/dL aspartate aminotransferase (SGOT), serum 22 U/L alanine aminotransferase (SGPT), serum 20 U/L bilirubin, serum, total 0.3 mg/dL sodium, serum 129 mmol/L anion gap, serum 15 glucose, plasma fasting 400 mg/dL Estimated Glomerular Filtration Rate (calc) 36 mL/min/1.73m2 chloride, serum 99 mmol/L calcium, serum 8.3 mg/dL Clinical Lists Update: CBC,CMP,TSH,FREE T4 - Hematology mean corpuscular volume, RBC 93 fL red blood cell distribution width 15.7 % leukocyte count, blood 7.5 10*3/mm3 platelet count 212 10*3/mm3 hemoglobin, blood 12.0 g/dL hematocrit, blood 38 % erythrocyte (RBC) count 4.10 10*6/mm3 Clinical Lists Update: CBC,CMP,TSH,FREE T4,HGA1C - Chemistry albumin, serum 3.9 g/dL alkaline phosphatase, serum 112 U/L urea nitrogen, blood 21 mg/dL calcium, serum 9.4 mg/dL chloride, serum 98 mmol/L carbon dioxide, venous blood 30.0 mmol/L creatinine, serum 1.4 mg/dL hemoglobin A1C, blood, as % of total hemoglobin 8.3 % thyroid stimulating hormone, serum 3.10 u[iU]/mL potassium, serum 3.8 mmol/L protein, total, serum 6.3 g/dL aspartate aminotransferase (SGOT), serum 23 U/L alanine aminotransferase (SGPT), serum 25 U/L bilirubin, serum, total 0.7 mg/dL sodium, serum 135 mmol/L anion gap, serum 11 glucose, plasma fasting 101 mg/dL Estimated Glomerular Filtration Rate (calc) 56 mL/min/1.73m2 thyroxine, serum, free 0.86 ng/dL Clinical Lists Update: CBC,CMP,TSH,FREE T4,HGA1C - Hematology hemoglobin, blood 13.3 g/dL platelet count 219 10*3/mm3 erythrocyte (RBC) count 4.61 10*6/mm3 leukocyte count, blood 9.0 10*3/mm3 mean corpuscular volume, RBC 89 fL red blood cell distribution width 17.9 % hematocrit, blood 40.9 % Clinical Lists Update: [facility] - Chemistry Estimated Glomerular Filtration Rate (calc) 46 mL/min/1.73m2 glucose, plasma fasting 254 mg/dL urea nitrogen, blood 27 mg/dL calcium, serum 9.0 mg/dL chloride, serum 108 mmol/L carbon dioxide, venous blood 23 mmol/L creatinine, serum 1.58 mg/dL potassium, serum 4.5 mmol/L sodium, serum 138 mmol/L Clinical Lists Update: [facility] - Hematology platelet count 206 10*3/mm3 erythrocyte (RBC) count 4.53 10*6/mm3 leukocyte count, blood 8.6 10*3/mm3 mean corpuscular volume, RBC 88 fL red blood cell distribution width 15.7 % hemoglobin, blood 13.4 g/dL hematocrit, blood 40 % Clinical Lists Update: [facility] - Chemistry ferritin, serum 34 ng/mL Clinical Lists Update: [facility] - Chemistry Estimated Glomerular Filtration Rate (calc) 41 mL/min/1.73m2 glucose, plasma fasting 234 mg/dL albumin, serum 3.0 g/dL alkaline phosphatase, serum 105 U/L urea nitrogen, blood 20 mg/dL calcium, serum 9.1 mg/dL chloride, serum 104 mmol/L carbon dioxide, venous blood 24 mmol/L creatinine, serum 1.73 mg/dL potassium, serum 4.4 mmol/L sodium, serum 138 mmol/L bilirubin, serum, total 0.3 mg/dL alanine aminotransferase (SGPT), serum 23 U/L aspartate aminotransferase (SGOT), serum 16 U/L protein, total, serum 5.8 g/dL Clinical Lists Update: [facility] - Hematology leukocyte count, blood 7.0 10*3/mm3 mean corpuscular volume, RBC 91 fL red blood cell distribution width 13.4 % hematocrit, blood 33 % erythrocyte (RBC) count 3.58 10*6/mm3 hemoglobin, blood 10.8 g/dL platelet count 237 10*3/mm3 Clinical Lists Update: MICROALBUMIN - Urinalysis microalbumin, urine, semiquantitative 510.0 mg/dL Office Visit: Dr Colon's Check Up: Established Patient Visit - Chemistry hemoglobin A1C, blood, as % of total hemoglobin 9.2 % Encounters Code Encounter Date Provider Facility CPT-53746 Ofc Vst, Est Level III 17:13:15 CDT Ivet Catherine Isaiah Colon, DO, FACP CPT-29571 Ofc Vst, Est Level III 18:08:22 CDT Ivet Catherineviv Colon, DO, FACP CPT-54031 Ofc Vst, Est Level III 17:49:50 CDT Ivet Catherine Isaiah Colon, DO, FACP CPT-71368 Ofc Vst, Est Level III 15:15:23 CDT Ivet Catherine Colon DO, FACP CPT-46139 Ofc Vst, Est Level IV 19:30:59 CDT Ivetmalachi Colon, DO, FACP CPT-76433 Ofc Vst, Est Level IV 21:01:42 CDT Ivet Catherine Isaiah Colon DO, FACP CPT-25536 Ofc Vst, Est Level V 15:04:05 [employer]IV[employer]IV[employer]ADER Ivet Catherine Colon [facility] CPT-95980 Ofc Vst, Est Level V 14:38:30 CDT Ivet Catherineviv Colon [facility] CPT-93049 Ofc Vst, Est Level V 10:17:56 CDT Ivet Catherineviv Colon, DO, FACP CPT-76554 Ofc Vst, Est Level V 15:47:26 CDT Ivet Catherineviv Colon [facility] CPT-45288 Ofc Vst, Est Level V 16:17:13 CDT Ivetmalachi Colon [facility] CPT-59996 Ofc Vst, Est Level IV 15:47:01 CDT Ivetmalachi Colon [facility] CPT-50132 Ofc Vst, Est Level IV 16:34:42 ENERGY DERIVATIVES TRADER Ivetmalachi Colon DO, FACP CPT-02611 Ofc Vst, Est Level IV 15:29:06 ENERGY DERIVATIVES TRADER Ivet Colon DO, FACP CPT-71487 Ofc Vst, Est Level V 15:21:02 ENERGY DERIVATIVES TRADER Ivet Colon DO, FACP CPT-40266 Ofc Vst, Est Level V 14:30:22 [employer]ERGY DERIVATIVES TRADER Ivet Colon DO, FACP CPT-47048 Ofc Vst, New Level II 16:46:35 CDT Ivet Colon [facility] Procedures Code Procedure Name Date Entry Date Standard Description CPT-G0439 Medicare Annual Wellness Visit 15:18:08 CDT
[~2016-08-09 09:48] MED LIST changes: +AMLO10TA2 PO; +CFTR1PB IV
== END 2016-08-15 | disposition home or self-care (01) ==
LOC: WOUNDCARE 09:48
PROVIDERS: ATTEND Internal Medicine
DX: E11.621 Type 2 diabetes mellitus with foot ulcer (principal); I70.235 Atherosclerosis of native arteries of right leg with ulceration of other part of foot; I70.261 Atherosclerosis of native arteries of extremities with gangrene, right leg; L97.512 Non-pressure chronic ulcer of other part of right foot with fat layer exposed; L97.522 Non-pressure chronic ulcer of other part of left foot with fat layer exposed; T87.43 Infection of amputation stump, right lower extremity; N18.3 Chronic kidney disease, stage 3 (moderate)
CPT/HCPCS: 11042; 11730; 15275; 87070; 87075; 87077; 87101; 87186; 87205; 99212; 99213; 99214

== ENCOUNTER 2016-08-25 09:00 | Outpatient (RCR) | payer MEDICARE, OTHER | END 2016-11-23 | disposition home or self-care (01) | LOC: SDC 09:00 | PROVIDERS: ATTEND Internal Medicine | DX: I87.2 Venous insufficiency (chronic) (peripheral) (principal); Z45.2 Encounter for adjustment and management of vascular access device | CPT/HCPCS: 99211 ==

== ENCOUNTER → 2016-08-29 | Outpatient (CLI) | payer MEDICARE, OTHER ==
[2016-08-29 08:42] LABS: BASOPHILS # (AUTO) 0.1 10^3/uL (0.0-0.1); BASOPHILS % (AUTO) 1 % (0-10); EOSINOPHILS # (AUTO) 0.5 10^3/uL (0.0-0.3); EOSINOPHILS % (AUTO) 5 % (0-10); LYMPHOCYTES # (AUTO) 1.8 X 10^3 (1.0-4.0); LYMPHOCYTES % (AUTO) 20 % (12-44); MEAN CORPUSCULAR HEMOGLOBIN 28 PG (25-34); MEAN CORPUSCULAR HGB CONC 32 G/DL (32-36); MEAN CORPUSCULAR VOLUME 88 FL (80-99); MEAN PLATELET VOLUME 11.6 FL (7.4-10.4); MONOCYTES # (AUTO) 0.6 X 10^3 (0.0-1.0); MONOCYTES % (AUTO) 6 % (0-12); NEUTROPHILS # (AUTO) 6.2 X 10^3 (1.8-7.8); NEUTROPHILS % (AUTO) 68 % (42-75); PLATELET COUNT 202 10^3/uL (130-400); RED BLOOD COUNT 4.96 10^6/uL (4.35-5.85); RED CELL DISTRIBUTION WIDTH 16.2 % (10.0-14.5)
[2016-08-29 09:22] LABS: THYROID STIMULATING HORMONE 9.66 UIU/ML (0.35-4.94)
[2016-08-30 08:18] LABS: MICROALBUMIN/CREATININE RATIO 697.7 mg/gCR (0.0-30.0)
[2016-08-30 10:16] LABS: ALBUMIN 3.7 G/DL (3.2-4.5); BILIRUBIN,TOTAL 0.4 MG/DL (0.1-1.0); CALCIUM 9.5 MG/DL (8.5-10.1); CREATININE SERUM 2.15 MG/DL (0.60-1.30); POTASSIUM 4.3 MMOL/L (3.6-5.0); TOTAL PROTEIN 7.5 G/DL (6.4-8.2)
== END ==
LOC: LAB 08:19
PROVIDERS: ATTEND Internal Medicine
DX: Z00.00 Encounter for general adult medical examination without abnormal findings (principal); E78.1 Pure hyperglyceridemia; E03.9 Hypothyroidism, unspecified; E11.65 Type 2 diabetes mellitus with hyperglycemia; D50.8 Other iron deficiency anemias
CPT/HCPCS: 36415; 80053; 80061; 82043; 82728; 83036; 83540; 84439; 84443; 85025

== ENCOUNTER 2016-09-20 08:44 | Outpatient (RCR) | payer MEDICARE, OTHER | END 2016-09-20 14:11 | disposition home or self-care (01) | LOC: WOUNDCARE 08:44 | PROVIDERS: ATTEND Internal Medicine | DX: E11.621 Type 2 diabetes mellitus with foot ulcer (principal); L97.512 Non-pressure chronic ulcer of other part of right foot with fat layer exposed; I70.235 Atherosclerosis of native arteries of right leg with ulceration of other part of foot; I70.261 Atherosclerosis of native arteries of extremities with gangrene, right leg; T87.43 Infection of amputation stump, right lower extremity; N18.3 Chronic kidney disease, stage 3 (moderate) | CPT/HCPCS: 11042; 97597; 99212 ==

== ENCOUNTER 2016-10-03 08:53 | Outpatient (RCR) | payer MEDICARE, OTHER ==
[2016-07-06] MEDS: cefTRIAXone 2 GM/NS 50 ML IVPB IV SCH ×2 (09:32)
[2016-07-06] MEDS: CATHETER FLUSH 10 ML SYR IV PRN ×2 (09:33→09:58)
[2016-07-06 10:00] VITALS: BP 147/79
[2016-07-07] MEDS: cefTRIAXone 2 GM/NS 50 ML IVPB IV SCH ×2 (08:25)
[2016-07-07] MEDS: CATHETER FLUSH 10 ML SYR IV PRN ×2 (08:25→08:53)
[2016-07-07 08:53] VITALS: BP 149/99
[2016-07-08] MEDS: cefTRIAXone 2 GM/NS 50 ML IVPB IV SCH ×2 (09:42)
[2016-07-08] MEDS: CATHETER FLUSH 10 ML SYR IV PRN ×2 (09:43→10:05)
[2016-07-08 10:05] VITALS: BP 148/77
[2016-07-09] MEDS: CATHETER FLUSH 10 ML SYR IV PRN ×2 (09:07→09:35)
[2016-07-09] MEDS: cefTRIAXone 2 GM/NS 50 ML IVPB IV SCH ×2 (09:07)
[2016-07-09 09:35] VITALS: BP 137/80
[2016-07-10 10:20] VITALS: BP 159/85
[2016-07-10] MEDS: CATHETER FLUSH 10 ML SYR IV PRN ×2 (10:21→10:50)
[2016-07-10] MEDS: cefTRIAXone 2 GM/NS 50 ML IVPB IV SCH ×2 (10:26)
--- NOTE | 2016-07-10 11:50 | Physician Query-Final Dx ---
JOSE MOJICA 07/10/16 1150: Clinic Account Progress/Dx Physician Query: Please give a diagnosis for the Ceftriaxone treatment thank you Date of Service Jul 10, 2016 at 09:01 ABIODUN SOLANO DO 07/10/16 1433: Clinic Account Progress/Dx DIAGNOSIS: Diagnosis cellulitis/osteomyelitis JOSE MOJICA Jul 10, 2016 11:50 ABIODUN SOLANO DO Jul 10, 2016 14:33
[2016-07-11] MEDS: cefTRIAXone 2 GM/NS 50 ML IVPB IV SCH ×2 (09:00)
[2016-07-11 09:05] VITALS: BP 135/84
[2016-07-12] MEDS: cefTRIAXone 2 GM/NS 50 ML IVPB IV SCH ×2 (09:58)
[2016-07-12 10:30] VITALS: BP 143/84
[2016-07-13] MEDS: cefTRIAXone 2 GM/NS 50 ML IVPB IV SCH ×2 (09:35)
[2016-07-13 10:05] VITALS: BP 148/77
[2016-07-14] MEDS: cefTRIAXone 2 GM/NS 50 ML IVPB IV SCH ×2 (08:27)
[2016-07-14] MEDS: CATHETER FLUSH 10 ML SYR IV PRN (08:28)
[2016-07-14 09:03] VITALS: BP 157/90
[2016-07-15] MEDS: cefTRIAXone 2 GM/NS 50 ML IVPB IV SCH ×2 (08:15)
[2016-07-15] MEDS: CATHETER FLUSH 10 ML SYR IV PRN (08:17)
[2016-07-15 08:45] VITALS: BP 137/76
[2016-07-16 09:00] VITALS: BP 112/74
[2016-07-16] MEDS: cefTRIAXone 2 GM/NS 50 ML IVPB IV SCH ×2 (09:00)
[2016-07-17 08:50] VITALS: BP 118/82
[2016-07-17] MEDS: cefTRIAXone 2 GM/NS 50 ML IVPB IV SCH ×2 (08:50)
[2016-07-18] MEDS: CATHETER FLUSH 10 ML SYR IV PRN (09:06)
[2016-07-18] MEDS: cefTRIAXone 2 GM/NS 50 ML IVPB IV SCH ×2 (09:06)
[2016-07-18 10:44] VITALS: BP 134/90
[2016-07-19] MEDS: CATHETER FLUSH 10 ML SYR IV PRN (09:05)
[2016-07-19] MEDS: cefTRIAXone 2 GM/NS 50 ML IVPB IV SCH ×2 (09:05)
[2016-07-19 11:11] VITALS: BP 148/88
[2016-07-20 09:17] VITALS: BP 121/75
[2016-07-21 08:20] VITALS: BP 131/91
[2016-07-21] MEDS: CATHETER FLUSH 10 ML SYR IV PRN ×2 (08:20→08:55)
[2016-07-21] MEDS: cefTRIAXone 2 GM/NS 50 ML IVPB IV SCH ×2 (08:20)
[2016-07-22 08:10] VITALS: BP 123/90
[2016-07-22] MEDS: cefTRIAXone 2 GM/NS 50 ML IVPB IV SCH ×2 (08:10)
[2016-07-22] MEDS: CATHETER FLUSH 10 ML SYR IV PRN ×2 (08:10→08:50)
[2016-07-23] MEDS: CATHETER FLUSH 10 ML SYR IV PRN ×2 (09:09→09:40)
[2016-07-23] MEDS: cefTRIAXone 2 GM/NS 50 ML IVPB IV SCH ×2 (09:09)
[2016-07-23 09:40] VITALS: BP 132/84
[2016-07-24] MEDS: cefTRIAXone 2 GM/NS 50 ML IVPB IV SCH ×2 (08:47)
[2016-07-24 08:48] VITALS: BP 164/92
[2016-07-25] MEDS: cefTRIAXone 2 GM/NS 50 ML IVPB IV SCH ×2 (09:05)
[2016-07-25 09:40] VITALS: BP 130/85
[2016-07-26] MEDS: cefTRIAXone 2 GM/NS 50 ML IVPB IV SCH ×2 (09:10)
[2016-07-26] MEDS: CATHETER FLUSH 10 ML SYR IV PRN (09:10)
[2016-07-26 10:56] VITALS: BP 131/86
[2016-07-27] MEDS: cefTRIAXone 2 GM/NS 50 ML IVPB IV SCH ×2 (08:50)
[2016-07-27] MEDS: CATHETER FLUSH 10 ML SYR IV PRN (08:50)
[2016-07-27 10:19] VITALS: BP 162/96
[2016-07-28] MEDS: CATHETER FLUSH 10 ML SYR IV PRN ×2 (08:10→08:36)
[2016-07-28] MEDS: cefTRIAXone 2 GM/NS 50 ML IVPB IV SCH ×2 (08:11)
[2016-07-28 08:37] VITALS: BP 124/83
[2016-07-29] MEDS: CATHETER FLUSH 10 ML SYR IV PRN ×2 (08:19→08:47)
[2016-07-29] MEDS: cefTRIAXone 2 GM/NS 50 ML IVPB IV SCH ×2 (08:20)
[2016-07-29 09:09] VITALS: BP 138/77
[2016-07-30] MEDS: cefTRIAXone 2 GM/NS 50 ML IVPB IV SCH ×2 (08:51)
[2016-07-30 09:20] VITALS: BP 133/90
[2016-07-31] MEDS: cefTRIAXone 2 GM/NS 50 ML IVPB IV SCH ×2 (09:09)
[2016-07-31 10:19] VITALS: BP 123/81
[2016-08-01] MEDS: cefTRIAXone 2 GM/NS 50 ML IVPB IV SCH ×2 (08:49)
[2016-08-01] MEDS: CATHETER FLUSH 10 ML SYR IV PRN (08:49)
[2016-08-01 09:47] VITALS: BP 145/78
[2016-08-02] MEDS: cefTRIAXone 2 GM/NS 50 ML IVPB IV SCH ×2 (09:05)
[2016-08-02 09:07] VITALS: BP 158/89
[2016-08-02 09:41] VITALS: BP 158/89
[2016-08-03] MEDS: cefTRIAXone 2 GM/NS 50 ML IVPB IV SCH ×2 (09:03)
[2016-08-03] MEDS: CATHETER FLUSH 10 ML SYR IV PRN ×2 (09:03→09:28)
[2016-08-03 09:30] VITALS: BP 115/82
[2016-08-04 08:00] VITALS: BP 137/81
[2016-08-04] MEDS: CATHETER FLUSH 10 ML SYR IV PRN ×4 (08:11→08:53)
[2016-08-04] MEDS: cefTRIAXone 2 GM/NS 50 ML IVPB IV SCH ×2 (08:12)
[2016-08-04 08:54] VITALS: BP 137/81
[2016-08-05] MEDS: cefTRIAXone 2 GM/NS 50 ML IVPB IV SCH ×2 (08:07)
[2016-08-05] MEDS: CATHETER FLUSH 10 ML SYR IV PRN ×2 (08:07→08:41)
[2016-08-05 08:11] VITALS: BP 128/97
[2016-08-06] MEDS: CATHETER FLUSH 10 ML SYR IV PRN (09:14)
[2016-08-06] MEDS: cefTRIAXone 2 GM/NS 50 ML IVPB IV SCH ×2 (09:15)
[2016-08-06 09:35] VITALS: BP 146/87
[2016-08-07] MEDS: cefTRIAXone 2 GM/NS 50 ML IVPB IV SCH ×2 (09:01)
[2016-08-07] MEDS: CATHETER FLUSH 10 ML SYR IV PRN ×2 (09:01→09:32)
[2016-08-07 09:04] VITALS: BP 146/87
[2016-08-08] MEDS: cefTRIAXone 2 GM/NS 50 ML IVPB IV SCH ×2 (08:57)
[2016-08-08] MEDS: CATHETER FLUSH 10 ML SYR IV PRN (08:58)
[2016-08-08 09:07] VITALS: BP 144/89
[2016-08-09] MEDS: cefTRIAXone 2 GM/NS 50 ML IVPB IV SCH ×2 (08:56)
[2016-08-09] MEDS: CATHETER FLUSH 10 ML SYR IV PRN (08:56)
[2016-08-09 09:47] VITALS: BP 129/77
[2016-08-10] MEDS: CATHETER FLUSH 10 ML SYR IV PRN ×2 (09:00→09:35)
[2016-08-10] MEDS: cefTRIAXone 2 GM/NS 50 ML IVPB IV SCH ×2 (09:00)
[2016-08-10 09:35] VITALS: BP 126/96
[2016-08-11 08:05] VITALS: BP 142/78
[2016-08-11] MEDS: CATHETER FLUSH 10 ML SYR IV PRN ×2 (08:17→09:17)
[2016-08-11] MEDS: cefTRIAXone 2 GM/NS 50 ML IVPB IV SCH ×2 (08:27)
[2016-08-12 08:00] VITALS: BP 158/92
[2016-08-12] MEDS: CATHETER FLUSH 10 ML SYR IV PRN ×2 (08:18→09:17)
[2016-08-12] MEDS: cefTRIAXone 2 GM/NS 50 ML IVPB IV SCH ×2 (08:20)
[2016-08-13] MEDS: CATHETER FLUSH 10 ML SYR IV PRN ×2 (08:54→09:50)
[2016-08-13] MEDS: cefTRIAXone 2 GM/NS 50 ML IVPB IV SCH ×2 (08:55)
[2016-08-13 10:03] VITALS: BP 128/83
[2016-08-14] MEDS: CATHETER FLUSH 10 ML SYR IV PRN ×2 (08:51→09:47)
[2016-08-14] MEDS: cefTRIAXone 2 GM/NS 50 ML IVPB IV SCH ×2 (08:51)
[2016-08-14 08:52] VITALS: BP 149/79
[2016-08-15] MEDS: CATHETER FLUSH 10 ML SYR IV PRN ×2 (09:06→09:40)
[2016-08-15] MEDS: cefTRIAXone 2 GM/NS 50 ML IVPB IV SCH ×2 (09:06)
[2016-08-15 10:00] VITALS: BP 130/80
[2016-08-16] MEDS: cefTRIAXone 2 GM/NS 50 ML IVPB IV SCH ×2 (08:55)
[2016-08-16 09:35] VITALS: BP 139/84
[2016-08-16] MEDS: CATHETER FLUSH 10 ML SYR IV PRN (09:35)
[2016-08-17] MEDS: CATHETER FLUSH 10 ML SYR IV PRN ×2 (09:09→09:41)
[2016-08-17] MEDS: cefTRIAXone 2 GM/NS 50 ML IVPB IV SCH ×2 (09:10)
[2016-08-17 09:45] VITALS: BP 129/82
[2016-08-18] MEDS: cefTRIAXone 2 GM/NS 50 ML IVPB IV SCH ×2 (08:20)
[2016-08-18] MEDS: CATHETER FLUSH 10 ML SYR IV PRN ×2 (08:22→09:25)
[2016-08-18 08:25] VITALS: BP 147/95
[2016-08-18 09:26] VITALS: BP 147/95
[2016-08-19] MEDS: cefTRIAXone 2 GM/NS 50 ML IVPB IV SCH ×2 (08:37)
[2016-08-19 08:39] VITALS: BP 112/74
[2016-08-19] MEDS: CATHETER FLUSH 10 ML SYR IV PRN (09:40)
[2016-08-19 09:41] VITALS: BP 112/74
[2016-08-22 09:30] VITALS: BP 140/89
[2016-08-29] MEDS: CATHETER FLUSH 10 ML SYR IV PRN (09:10)
[2016-08-29 09:20] VITALS: BP 124/83
[2016-09-05 09:15] VITALS: BP 158/83
[2016-09-12] MEDS: CATHETER FLUSH 10 ML SYR IV PRN (09:20)
[2016-09-12 09:33] VITALS: BP 129/77
[2016-09-19] MEDS: CATHETER FLUSH 10 ML SYR IV PRN (10:10)
[2016-09-19 11:34] VITALS: BP 126/74
[2016-09-26 09:19] VITALS: BP 129/91
[~2016-10-03] VITALS: Ht 177.8 cm; Wt 87.4 kg
[~2016-10-03 08:53] MED LIST changes: +NS (IVPB) 50 ML ONE; +cefTRIAXone 2 GM (ROCEPHIN) VIAL ONE
[2016-10-03] MEDS: CATHETER FLUSH 10 ML SYR IV PRN (09:10)
[2016-10-03 09:51] VITALS: BP 138/79
== END 2016-10-04 | disposition home or self-care (01) ==
LOC: SDC 08:53
PROVIDERS: ATTEND Internal Medicine
DX: M86.9 Osteomyelitis, unspecified (principal)
CPT/HCPCS: 96365; 99211; 99212

== ENCOUNTER → 2016-11-23 | Outpatient (CLI) | payer MEDICARE, OTHER ==
[~2016-11-23] VITALS: Ht 177.8 cm; Wt 87.4 kg
[~2016-11-23] MED LIST changes: -NS (IVPB) 50 ML ONE; -cefTRIAXone 2 GM (ROCEPHIN) VIAL ONE
[2016-11-23 09:50] VITALS: BP 139/96
[2016-11-23 09:50] LABS: BASOPHILS # (AUTO) 0.1 10^3/uL (0.0-0.1); BASOPHILS % (AUTO) 1 % (0-10); EOSINOPHILS # (AUTO) 0.4 10^3/uL (0.0-0.3); EOSINOPHILS % (AUTO) 4 % (0-10); LYMPHOCYTES # (AUTO) 1.7 X 10^3 (1.0-4.0); LYMPHOCYTES % (AUTO) 20 % (12-44); MEAN CORPUSCULAR HEMOGLOBIN 29 PG (25-34); MEAN CORPUSCULAR HGB CONC 34 G/DL (32-36); MEAN CORPUSCULAR VOLUME 86 FL (80-99); MEAN PLATELET VOLUME 11.7 FL (7.4-10.4); MONOCYTES # (AUTO) 0.6 X 10^3 (0.0-1.0); MONOCYTES % (AUTO) 7 % (0-12); NEUTROPHILS % (AUTO) 68 % (42-75); PLATELET COUNT 137 10^3/uL (130-400); RED BLOOD COUNT 5.26 10^6/uL (4.35-5.85); WHITE BLOOD COUNT 8.8 10^3/uL (4.3-11.0)
[2016-11-23 09:59] LABS: ALBUMIN 3.5 GM/DL (3.2-4.5); BILIRUBIN,TOTAL 0.6 MG/DL (0.1-1.0); CALCIUM 9.2 MG/DL (8.5-10.1); CREATININE SERUM 1.83 MG/DL (0.60-1.30); POTASSIUM 3.5 MMOL/L (3.6-5.0); TOTAL PROTEIN 6.7 GM/DL (6.4-8.2)
[2016-11-23 10:20] LABS: THYROID STIMULATING HORMONE 1.03 UIU/ML (0.35-4.94)
== END ==
LOC: SDC 08:48
PROVIDERS: ATTEND Internal Medicine
DX: E03.9 Hypothyroidism, unspecified (principal); E78.1 Pure hyperglyceridemia; E78.00 Pure hypercholesterolemia, unspecified; D50.8 Other iron deficiency anemias; E11.65 Type 2 diabetes mellitus with hyperglycemia
CPT/HCPCS: 36415; 36592; 80053; 80061; 82728; 83036; 83540; 84439; 84443; 85025; 99211

== ENCOUNTER 2016-12-12 08:58 | Outpatient (RCR) | payer MEDICARE, OTHER ==
[2016-10-10 09:17] VITALS: BP 148/88
[2016-10-17 09:15] VITALS: BP 140/80
[2016-10-24 09:18] VITALS: BP 164/90
[2016-10-31 09:25] VITALS: BP 120/81
[2016-11-07 10:28] VITALS: BP 142/83
[2016-11-12] MEDS: CATHETER FLUSH 10 ML SYR IV PRN (08:45)
[2016-11-12 09:00] VITALS: BP 109/74
[2016-11-20] MEDS: CATHETER FLUSH 10 ML SYR IV PRN (09:50)
[2016-11-20 10:10] VITALS: BP 160/87
[2016-11-23 09:50] VITALS: BP 139/96
[2016-11-23] MEDS: CATHETER FLUSH 10 ML SYR IV PRN (09:50)
[2016-11-29 09:15] VITALS: BP 126/81
[2016-12-05 10:10] VITALS: BP 140/88
[~2016-12-12] VITALS: Ht 177.8 cm; Wt 87.4 kg
[2016-12-12 08:57] VITALS: BP 137/78
[2016-12-17] MEDS ORDERED: CLOP75TA28 PO (09:26)
[2016-12-17] MEDS ORDERED: HYDR-3820 PO (09:26)
[2016-12-17] MEDS ORDERED: LEVO200T6 PO (09:26)
[2016-12-17] MEDS ORDERED: AMLO10TA2 PO (09:26)
[2016-12-17] MEDS ORDERED: NITR0.4T39 SL (09:26)
[2016-12-17] MEDS ORDERED: INSU100I14 SQ (09:26)
[2016-12-17] MEDS ORDERED: INSU100V5 SQ (09:29)
== END 2016-12-22 | disposition home or self-care (01) ==
LOC: SDC 08:58
PROVIDERS: ATTEND Internal Medicine
DX: M86.9 Osteomyelitis, unspecified (principal); L03.90 Cellulitis, unspecified
CPT/HCPCS: 96523; 99211; 99212

== ENCOUNTER 2016-12-17 09:31 | Outpatient (CLI) | payer MEDICARE, OTHER ==
[~2016-12-17] VITALS: Ht 177.8 cm; Wt 86.6 kg
[~2016-12-17 09:31] MED LIST changes: +CLOP75TA28 PO; +HYDR-3820 PO; +NITR0.4T39 SL
== END 2016-12-17 09:40 ==
LOC: PREOP 09:31
PROVIDERS: ATTEND Surgery
DX: Z01.818 Encounter for other preprocedural examination (principal); N60.01 Solitary cyst of right breast

== ENCOUNTER 2016-12-20 08:43 | Day surgery (SDC) | payer MEDICARE, OTHER ==
[~2016-12-20] VITALS: Ht 177.8 cm; Wt 86.6 kg
--- OUTSIDE RECORDS SUMMARY | 2016-12-20 09:00 | XMS REPORT | Clinical Summary ---
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 If you do not see the information that you expected, contact Release of Information in the Health Information Management department at [phone] for further assistance in locating additional records.[facility] Allergies Active Allergy Reactions Severity Noted Date Comments Protamine UNKNOWN 06/02/2012 Simvastatin MUSCLE PAIN 08/06/2012 Oxycodone-Acetaminophen HALLUCINATIONS 06/02/2012 With large doses Current Medications Prescription Sig. [...] mouth 30 Tab 1 06/05/19 Active mg tabletIndications: CAD daily. 13 (coronary artery disease), HTN (hypertension), Hypothyroidism, Diabetes mellitus (HCC), Chronic renal disease, DM (diabetes mellitus) (HCC), CKD (chronic kidney disease), Type II diabetes mellitus (HCC), S/P CABG (coronary artery bypass graft), JOSE (obstructive sleep apnea), Unspecified hypothyroidism, Type II or unspecified type diabetes mellitus without mention of complication, not stated as uncontrolled, Unspecified essential hypertension, Coronary atherosclerosis of unspecified type of vessel, [place] or graft, Postsurgical aortocoronary bypass status, Obstructive sleep apnea (adult) (pediatric), Chronic kidney disease, unspecified, Cholelithiasis, Vomiting, Calculus of gallbladder without mention of cholecystitis or obstruction, Vomiting alone nitroglycerin (NITROSTAT) for chest pain. Take 1 [...] artery disease) Overview: 01/06/09- CABG x 4 ([facility]): Left internal thoracic artery-LAD. SVG-DIAG, SVG-OM1 and OM2. HTN (hypertension) Hypothyroidism CKD (chronic kidney disease) Resolved Problems Problem Noted Date Resolved Date Cholelithiasis 08/15/2012 09/04/2012 Cholelithiasis and cholecystitis without obstruction 08/12/2012 09/04/2012 Family History Medical History Relation Name Comments Coronary Artery Disease Mother Relation Name Status Comments Brother Alive Father Alzheimer's (Age 70) Mother CHF, hx of open heart surgery (Age 60's) Sister Alive arthitis Sister Alive Sister Alive Sister Alive Sister unknown, diabetes (uncontrolled) (Age 54) Son Alive liver cancer, war ( psych issues) Social History Tobacco Use Types Packs/Day Years Used Date Former Smoker Cigarettes 35 Quit: 02/23/2012 Smokeless Tobacco: Never Used Alcohol Use Drinks/Week oz/Week Comments No Sex Assigned at Date Recorded Not on file Last Filed Vital Signs Vital Sign Reading Time Taken Blood Pressure 120/70 10/28/2012 10:23 AM CDT Pulse 54 10/28/2012 10:23 AM CDT Temperature 36.2 C (97.1 F) 09/03/2012 10:30 AM CDT Respiratory Rate 14 09/03/2012 10:30 AM CDT Oxygen Saturation 99% 08/16/2012 11:35 AM CDT Inhaled Oxygen - - Concentration Weight 97.5 kg (215 lb) 12/26/2012 10:31 AM CDT Height 177.8 cm (5' 10") 12/26/2012 10:31 AM CDT Body Mass Index 30.85 12/26/2012 10:31 AM CDT Plan of Treatment Health Maintenance Due Date Last Done Comments HEPATITIS C SCREENING 1960 PHYSICAL (COMPREHENSIVE) 08/25/1966 EXAM PERTUSSIS VACCINE 08/25/1970 TETANUS VACCINE 08/25/1976 DILATED EYE EXAM 08/25/1977 FOOT EXAM 08/25/1977 HBA1C 08/25/1977 MICROALBUMIN 08/25/1977 PNEUMONIA VACCINE (DM) 08/25/1977 COLORECTAL CANCER 08/25/2009 SCREENING INFLUENZA VACCINE 12/23/2016 Results Not on filefrom Last 3 Months
[2016-12-20 09:02] VITALS: BP 128/89
[2016-12-20] MEDS ORDERED: LACTATED RINGERS 1,000 ML IV PRN (11:16)
[2016-12-20] MEDS ORDERED: BUPIVACAINE 0.5% 30 ML (SENSORCAINE) VIAL ONE (12:55)
[2016-12-20] MEDS ORDERED: LIDOCAINE 1% INJ 20 ML (XYLOCAINE) VIAL ONE (12:56)
[2016-12-20] MEDS ORDERED: HEParin (CENTRAL IV FLUSH) 500 UNIT/5 ML SYR ONE (12:56)
[2016-12-20] MEDS ORDERED: 0.9% SODIUM CHLORIDE PF INJ 20 ML VIAL ONE (12:56)
[2016-12-20] MEDS ORDERED: proPOfol 200 MG/20 ML (DIPRIVAN) VIAL IV ONE ×2 (13:07→14:40)
[2016-12-20] MEDS ORDERED: MIDAZOLAM 2 MG/2 ML (VERSED) VIAL ONE (13:07)
--- NOTE | 2016-12-20 13:10 | Progress Note-Pre Operative ---
Pre-Operative Progress Note H&P Reviewed The H&P was reviewed, patient examined and no changes noted. Date Seen by Provider: Dec 20, 2016 Time Seen by Provider: 13:09 Date H&P Reviewed: Dec 20, 2016 Time H&P Reviewed: 13:10 Pre-Operative Diagnosis: poor venous acces, right breast mass LEIGH ANN FUCHS DO Dec 20, 2016 1:10 pm
[2016-12-20] MEDS ORDERED: ceFAZolin 1,000 MG (ANCEF) VIAL ONE (13:18)
--- NOTE | 2016-12-20 14:22 | Progress Note-Post Operative ---
Post-Operative Progess Note Surgeon (s)/Computer Discovery Teacher (s) Surgeon LEIGH ANN FUCHS DO Computer Discovery Teacher: na Pre-Operative Diagnosis poor venous acces, right breast mass Post-Operative Diagnosis same Procedure & Operative Findings Date of Procedure 12/20/16 Procedure Performed/Findings port placement u/s guidance excision cyst right breast 1.8 cm Anesthesia Type mac c local Estimated Blood Loss Estimated blood loss (mL): min Specimens/Packing Specimens Removed cyst LEIGH ANN FUCHS DO Dec 20, 2016 2:21 pm
--- NOTE | 2016-12-20 14:26 | Discharge Inst-Simple/Standard ---
Discharge Inst-Standard Patient Instructions/Follow Up Plan of Care/Instructions/FU: 2 weeks Aviva Activity as Tolerated: No Discharge Diet: Regular Diet Other Inst to Patient Follow up Appt: Make appointment for 2 week. Instructions: No lifting greater than 10 pounds. No strenuous activity. May shower in 24 hours, no tub bath or soaking. Use incentive spirometer at home as directed. No Smoking Skin/Wound Care: May remove bandages in 48 hours. You have special glue over incisions it will fall off on its own. Symptoms to Report: Appetite Changes, Extremity Discoloration, Numbness/Tingling, Swelling Increased , Bleeding Excessive, Eyesight Changes, Pain Increased, Urine Color Change, Constipation(Persistent), Fever over 101 degree F, Pain/Pressure in chest, Urinating Difficulty, Cough Up/Vomit Blood, Heart Beat Irreg/Pounding, Pain/ Pressure in jaw, Vaginal Bleeding Increase, Cramps in feet or legs, Lightheadedness, Pain/Pressure in shoulder, Diarrhea(Persistent), Memory Changes Suddenly, Questions/Concerns, Weight gain consecutive days, Dizziness/ Fainting, Nausea/Vomiting, Shortness of Breath, Weight gain over 2 pounds If questions or concerns contact your physician Or seek help at emergency department. LEIGH ANN FUCHS DO Dec 20, 2016 2:25 pm
[2016-12-20] MEDS ORDERED: morphine INJ 10 MG/ML 1ML (SYR OR VIAL) IVP PRN (14:45)
[2016-12-20] MEDS ORDERED: ONDANSETRON 4 MG/2 ML (SDV) Z0FRAN IVP PRN (14:45)
[2016-12-20 15:03] VITALS: BP 142/105
--- NOTE | 2016-12-20 15:14 | Diagnostic Imaging Report ---
EXAMINATION: Portable upright radiograph of the chest. INDICATION: Port placement. FINDINGS: There is a right port in place with a right internal jugular approach and the tip at the SVC level. There is a right PICC line also in place with the tip at the cavoatrial junction. The lungs are clear. The heart size is normal. No effusion or pneumothorax. The mediastinum and marium appear unremarkable. Post CABG changes are seen. IMPRESSION: Right IJ port placement with the tip at the SVC level. Dictated by: Dictated on workstation # [id number]
[2016-12-20 15:35] VITALS: BP 170/97
[2016-12-20 16:00] VITALS: BP 170/97
--- NOTE | 2016-12-20 16:35 | Diagnostic Imaging Report ---
EXAMINATION: Intraoperative view of the chest. INDICATION: Port placement. FLUOROSCOPY TIME: 1 minute and 5 seconds of fluoroscopy time was provided. IMPRESSION: The provided image demonstrates a port placed with the tip projecting at the SVC level. There is also a right PICC line with the tip at the SVC level. Dictated by: Dictated on workstation # [id number]
--- NOTE | 2016-12-21 06:21 | OPERATIVE REPORT ---
DATE OF SERVICE: 12/20/2016 PREOPERATIVE DIAGNOSES: and right breast mass. POSTOPERATIVE DIAGNOSES: and right breast mass. PROCEDURE: Port placement under ultrasound guidance and excision of cyst right breast, 1.8 cm. SURGEON: Leigh Ann Chicas DO ANESTHESIA: MAC with local. ESTIMATED BLOOD LOSS: Minimal. COMPLICATIONS: None. INDICATIONS: The patient is a 56-year-old male with previous port malfunction. He had had it removed at a different place. The patient would like to have the port replaced. He also has a palpable mass in the right breast, I believe it to be a cyst. He understands the risks and benefits of the procedure and wished to proceed with the procedure. Consent was signed in the chart. DESCRIPTION OF PROCEDURE: The patient was taken to the operating suite, was prepped and draped in a sterile fashion. Surgical pause was performed. The ultrasound was used to locate the right internal jugular vein. Using micro-access needle, the right internal jugular vein was then accessed. Dark, nonpulsatile blood was withdrawn. A micro-access wire was inserted and needle was removed. Fluoroscopy assured proper placement. A small stab incision was made at the insertion point. A micro-access dilator was then advanced over the wire and the wire was removed. The normal guidewire was inserted and fluoroscopy again assured proper placement. The wire was then secured. Local anesthetic was infiltrated into the right chest for pocket placement. Once the pocket was created, the dilator sheath was then advanced over the guidewire and the [place] catheter was inserted through the sheath after the wire and dilator were removed. The [place] wire was removed. The catheter was then tunneled from the right neck down to the pocket that was created on the right chest. Fluoroscopy was used to cut the catheter to length. The port was attached to it in the usual fashion and then placed within the pocket. Port was then accessed without difficulty. Dark, nonpulsatile blood was withdrawn. Then, it also was flushed without difficulty, first with saline and then with heparin. The skin incision was then closed using 3-0 Vicryl and followed by 4-0 Vicryl in a running subcuticular fashion. Attention was then made to the mass in the breast just above the areolar complex. Local anesthetic was infiltrated into the area. A 15 blade scalpel was used to make incision. Metzenbaums were used to dissect around it. The cyst was ruptured anteriorly that the cyst was able to be removed in its entirety. The overall diameter of the cyst was approximately 1.8 cm. The wound was then irrigated with copious amounts of irrigation. The subcutaneous tissues were reapproximated using 3-0 Vicryl. The skin was then washed and dried of all the incisions. Dermabond was then placed over the incisions. The patient tolerated the procedure well without any complications and was taken to the recovery room in stable condition. Chest x-ray pending. Job ID: [id number] DocumentID: [id number] Dictated Date: 12/20/2016 19:56:03 Ship Wirer Date: 12/21/2016 06:20:13 Dictated By: LEIGH ANN CHICAS DO
== END 2016-12-20 16:00 | disposition home or self-care (01) ==
LOC: SDC 08:43
PROVIDERS: ATTEND Surgery
DX: N60.01 Solitary cyst of right breast (principal); I87.2 Venous insufficiency (chronic) (peripheral); I25.10 Atherosclerotic heart disease of native coronary artery without angina pectoris; N18.9 Chronic kidney disease, unspecified; I12.9 Hypertensive chronic kidney disease with stage 1 through stage 4 chronic kidney disease, or unspecified chronic kidney disease; E11.22 Type 2 diabetes mellitus with diabetic chronic kidney disease; E11.42 Type 2 diabetes mellitus with diabetic polyneuropathy; E78.5 Hyperlipidemia, unspecified; Z87.891 Personal history of nicotine dependence; Z79.899 Other long term (current) drug therapy; Z79.4 Long term (current) use of insulin
CPT/HCPCS: 71010; 87081

== ENCOUNTER 2017-03-22 09:32 | Outpatient (RCR) | payer MEDICARE, OTHER ==
[2017-01-25 09:05] VITALS: BP 130/100
[2017-02-22] MEDS: CATHETER FLUSH 10 ML SYR IV PRN (09:00)
[2017-02-22 09:20] VITALS: BP 131/83
[~2017-03-22] VITALS: Ht 177.8 cm; Wt 86.6 kg
[2017-03-22 09:30] VITALS: BP 168/92
[2017-03-22] MEDS: CATHETER FLUSH 10 ML SYR IV PRN (09:55)
[2017-03-22 09:57] LABS: BASOPHILS # (AUTO) 0.1 10^3/uL (0.0-0.1); BASOPHILS % (AUTO) 1 % (0-10); EOSINOPHILS # (AUTO) 0.4 10^3/uL (0.0-0.3); EOSINOPHILS % (AUTO) 4 % (0-10); HEMATOCRIT 46 % (40-54); HEMOGLOBIN 15.7 G/DL (13.3-17.7); LYMPHOCYTES % (AUTO) 22 % (12-44); MEAN CORPUSCULAR HEMOGLOBIN 31 PG (25-34); MEAN CORPUSCULAR HGB CONC 34 G/DL (32-36); MEAN CORPUSCULAR VOLUME 90 FL (80-99); MONOCYTES # (AUTO) 0.6 X 10^3 (0.0-1.0); MONOCYTES % (AUTO) 7 % (0-12); NEUTROPHILS # (AUTO) 6.2 X 10^3 (1.8-7.8); NEUTROPHILS % (AUTO) 67 % (42-75); PLATELET COUNT 140 10^3/uL (130-400); RED BLOOD COUNT 5.06 10^6/uL (4.35-5.85); RED CELL DISTRIBUTION WIDTH 14.7 % (10.0-14.5); WHITE BLOOD COUNT 9.3 10^3/uL (4.3-11.0)
[2017-03-22 10:32] LABS: FREE T4 (FREE THYROXINE) 1.06 NG/DL (0.70-1.48)
[2017-03-26 10:43] LABS: ALBUMIN 3.5 GM/DL (3.2-4.5); BILIRUBIN,TOTAL 0.9 MG/DL (0.1-1.0); CALCIUM 9.2 MG/DL (8.5-10.1); CREATININE SERUM 1.94 MG/DL (0.60-1.30); POTASSIUM 4.6 MMOL/L (3.6-5.0); TOTAL PROTEIN 6.4 GM/DL (6.4-8.2)
== END 2017-04-25 | disposition home or self-care (01) ==
LOC: SDC 09:32
PROVIDERS: ATTEND Surgery
DX: I87.2 Venous insufficiency (chronic) (peripheral) (principal); Z45.2 Encounter for adjustment and management of vascular access device
CPT/HCPCS: 36415; 36591; 80053; 82465; 82728; 83036; 83540; 84439; 84443; 84478; 85025; 96523

== ENCOUNTER → 2017-04-04 | Outpatient (CLI) | payer MEDICARE, OTHER | LOC: WOUNDCARE 10:07 | PROVIDERS: ATTEND Internal Medicine | DX: E11.621 Type 2 diabetes mellitus with foot ulcer (principal); N18.3 Chronic kidney disease, stage 3 (moderate); L97.522 Non-pressure chronic ulcer of other part of left foot with fat layer exposed; L97.403 Non-pressure chronic ulcer of unspecified heel and midfoot with necrosis of muscle | CPT/HCPCS: 11042; 11043; 87070; 87075; 87101; 87205 ==

== ENCOUNTER → 2017-04-10 | Outpatient (CLI) | payer MEDICARE, OTHER ==
--- NOTE | 2017-04-10 13:21 | Diagnostic Imaging Report ---
INDICATION: Osteomyelitis and chronic ulcer of the heel. TIME OF EXAM: 11:19 a.m. Comparison is made with prior exam from 08/18/2015. Postsurgical changes to the left foot are identified. 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 There is a screw within the proximal aspect of the first metatarsal. The resection margins appear to be smooth. The midfoot is unremarkable. A BB marker is placed along the lateral left foot. No underlying osseous erosive changes or destructive changes are identified. The calcaneus is unremarkable. There is mild dorsal soft tissue swelling present, increased since prior exam. IMPRESSION: Chronic changes with dorsal soft tissue swelling. No acute bony abnormality is detected. Dictated by: Dictated on workstation # [id number]
== END ==
LOC: RAD 10:47
PROVIDERS: ATTEND Internal Medicine
DX: L97.522 Non-pressure chronic ulcer of other part of left foot with fat layer exposed (principal); L97.423 Non-pressure chronic ulcer of left heel and midfoot with necrosis of muscle; N18.3 Chronic kidney disease, stage 3 (moderate); E11.621 Type 2 diabetes mellitus with foot ulcer; Z89.429 Acquired absence of other toe(s), unspecified side
CPT/HCPCS: 36415; 73630; 85652

== ENCOUNTER → 2017-04-11 | Outpatient (CLI) | payer MEDICARE, OTHER | LOC: WOUNDCARE 09:49 | PROVIDERS: ATTEND Internal Medicine | DX: E11.621 Type 2 diabetes mellitus with foot ulcer (principal); L97.522 Non-pressure chronic ulcer of other part of left foot with fat layer exposed; N18.3 Chronic kidney disease, stage 3 (moderate); L97.403 Non-pressure chronic ulcer of unspecified heel and midfoot with necrosis of muscle | CPT/HCPCS: 11042 ==

== ENCOUNTER → 2017-04-16 | Outpatient (CLI) | payer MEDICARE, OTHER ==
--- NOTE | 2017-04-16 11:59 | Diagnostic Imaging Report ---
INDICATION: Ulcer of the left heel. EXAMINATION: Grayscale, color-flow and duplex Doppler evaluation of the left lower extremity arterial system was performed. FINDINGS: There are primarily biphasic waveforms from the left common femoral to the popliteal artery. The velocities in the left common femoral, superficial femoral and popliteal arteries are normal. Velocities in the tibial peroneal trunk are unremarkable. No flow beyond the tibial peroneal trunk is identified. No definite flow in the posterior tibial or anterior tibial artery or dorsalis pedis is seen. There may be a tiny collateral adjacent to the distal posterior tibial artery. No fluid collections are seen. IMPRESSION: Significant small vessel disease below the knee with no identifiable flow within the anterior, posterior or dorsalis pedis arteries. There does appear to be some flow in the peroneal artery. Dictated by: Dictated on workstation # [id number]
== END ==
LOC: RAD 09:26
PROVIDERS: ATTEND Internal Medicine
DX: I73.9 Peripheral vascular disease, unspecified (principal); E11.621 Type 2 diabetes mellitus with foot ulcer; L97.424 Non-pressure chronic ulcer of left heel and midfoot with necrosis of bone; E11.22 Type 2 diabetes mellitus with diabetic chronic kidney disease; N18.3 Chronic kidney disease, stage 3 (moderate)
CPT/HCPCS: 93926

== ENCOUNTER → 2017-04-18 | Outpatient (CLI) | payer MEDICARE, OTHER | LOC: WOUNDCARE 09:09 | PROVIDERS: ATTEND Internal Medicine | DX: E11.621 Type 2 diabetes mellitus with foot ulcer (principal); L97.522 Non-pressure chronic ulcer of other part of left foot with fat layer exposed; N18.3 Chronic kidney disease, stage 3 (moderate); L97.403 Non-pressure chronic ulcer of unspecified heel and midfoot with necrosis of muscle | CPT/HCPCS: 11042 ==

== ENCOUNTER → 2017-04-25 | Outpatient (CLI) | payer MEDICARE, OTHER | LOC: WOUNDCARE 09:13 | PROVIDERS: ATTEND Internal Medicine | DX: E11.621 Type 2 diabetes mellitus with foot ulcer (principal); L97.403 Non-pressure chronic ulcer of unspecified heel and midfoot with necrosis of muscle; L97.522 Non-pressure chronic ulcer of other part of left foot with fat layer exposed; N18.3 Chronic kidney disease, stage 3 (moderate) | CPT/HCPCS: 11042 ==

== ENCOUNTER → 2017-04-29 | Outpatient (CLI) | payer MEDICARE, OTHER ==
[~2017-04-29] MED LIST changes: +INSU100V16 SQ; +LINE600T7 PO; +[UNRECOGNIZED DRUG - CODE] MC
== END ==
LOC: CARD 08:20
PROVIDERS: ATTEND Physician Assistant
DX: I25.10 Atherosclerotic heart disease of native coronary artery without angina pectoris (principal); I10 Essential (primary) hypertension; E78.2 Mixed hyperlipidemia; I73.9 Peripheral vascular disease, unspecified
CPT/HCPCS: 93306

== ENCOUNTER → 2017-05-09 | Outpatient (CLI) | payer MEDICARE, OTHER | LOC: WOUNDCARE 08:45 | PROVIDERS: ATTEND Internal Medicine | DX: E11.621 Type 2 diabetes mellitus with foot ulcer (principal); L97.522 Non-pressure chronic ulcer of other part of left foot with fat layer exposed; N18.3 Chronic kidney disease, stage 3 (moderate); L97.403 Non-pressure chronic ulcer of unspecified heel and midfoot with necrosis of muscle | CPT/HCPCS: 11042 ==

== ENCOUNTER → 2017-05-16 | Outpatient (CLI) | payer MEDICARE, OTHER | LOC: WOUNDCARE 09:09 | PROVIDERS: ATTEND Internal Medicine | DX: L97.522 Non-pressure chronic ulcer of other part of left foot with fat layer exposed (principal); E11.621 Type 2 diabetes mellitus with foot ulcer; N18.3 Chronic kidney disease, stage 3 (moderate); L97.403 Non-pressure chronic ulcer of unspecified heel and midfoot with necrosis of muscle | CPT/HCPCS: 11042 ==

== ENCOUNTER → 2017-05-23 | Outpatient (CLI) | payer MEDICARE, OTHER | LOC: WOUNDCARE 09:07 | PROVIDERS: ATTEND Internal Medicine | DX: E11.621 Type 2 diabetes mellitus with foot ulcer (principal); L97.522 Non-pressure chronic ulcer of other part of left foot with fat layer exposed; L97.403 Non-pressure chronic ulcer of unspecified heel and midfoot with necrosis of muscle; N18.3 Chronic kidney disease, stage 3 (moderate) | CPT/HCPCS: 11042 ==

== ENCOUNTER → 2017-05-29 | Outpatient (CLI) | payer MEDICARE, OTHER ==
[2017-05-29 10:49] LABS: MEAN PLATELET VOLUME 11.8 FL (7.4-10.4); RED BLOOD COUNT 3.31 10^6/uL (4.35-5.85); RED CELL DISTRIBUTION WIDTH 14.4 % (10.0-14.5); WHITE BLOOD COUNT 8.6 10^3/uL (4.3-11.0)
[2017-05-29 11:20] LABS: ALBUMIN 3.6 GM/DL (3.2-4.5); BILIRUBIN,TOTAL 0.8 MG/DL (0.1-1.0); CALCIUM 8.6 MG/DL (8.5-10.1); CREATININE SERUM 2.76 MG/DL (0.60-1.30); POTASSIUM 4.8 MMOL/L (3.6-5.0); TOTAL PROTEIN 6.3 GM/DL (6.4-8.2)
== END ==
LOC: LAB 10:37
PROVIDERS: ATTEND Internal Medicine
DX: D64.9 Anemia, unspecified (principal); E11.9 Type 2 diabetes mellitus without complications; N18.9 Chronic kidney disease, unspecified
CPT/HCPCS: 36415; 80053; 85027

== ENCOUNTER → 2017-05-30 | Outpatient (CLI) | payer MEDICARE, OTHER | LOC: WOUNDCARE 09:04 | PROVIDERS: ATTEND Internal Medicine | DX: E11.621 Type 2 diabetes mellitus with foot ulcer (principal); L97.522 Non-pressure chronic ulcer of other part of left foot with fat layer exposed; N18.3 Chronic kidney disease, stage 3 (moderate); L97.403 Non-pressure chronic ulcer of unspecified heel and midfoot with necrosis of muscle | CPT/HCPCS: 11042 ==

== ENCOUNTER → 2017-06-04 | Outpatient (CLI) | payer MEDICARE, OTHER | LOC: WOUNDCARE 10:03 | PROVIDERS: ATTEND Nurse Practitioner | DX: E11.621 Type 2 diabetes mellitus with foot ulcer (principal); N18.3 Chronic kidney disease, stage 3 (moderate); L97.522 Non-pressure chronic ulcer of other part of left foot with fat layer exposed; L97.403 Non-pressure chronic ulcer of unspecified heel and midfoot with necrosis of muscle | CPT/HCPCS: 29445 ==

== ENCOUNTER → 2017-06-06 | Outpatient (CLI) | payer MEDICARE, OTHER | LOC: WOUNDCARE 09:08 | PROVIDERS: ATTEND Internal Medicine | DX: E11.621 Type 2 diabetes mellitus with foot ulcer (principal); L97.522 Non-pressure chronic ulcer of other part of left foot with fat layer exposed; L97.403 Non-pressure chronic ulcer of unspecified heel and midfoot with necrosis of muscle; N18.3 Chronic kidney disease, stage 3 (moderate) | CPT/HCPCS: 11042 ==

== ENCOUNTER → 2017-06-10 | Outpatient (CLI) | payer MEDICARE, OTHER | LOC: WOUNDCARE 09:02 | PROVIDERS: ATTEND Surgery | DX: E11.621 Type 2 diabetes mellitus with foot ulcer (principal); L97.422 Non-pressure chronic ulcer of left heel and midfoot with fat layer exposed; N18.3 Chronic kidney disease, stage 3 (moderate) | CPT/HCPCS: 29445 ==

== ENCOUNTER 2017-06-11 16:51 | Inpatient (IN) | payer MEDICARE, OTHER ==
[~2017-06-11] VITALS: Ht 177.8 cm; Wt 95.4 kg
[2017-06-11] MEDS ORDERED: ASPIRIN 81 MG CHEW (CHILDREN'S ASA) PO ONE (17:15)
[2017-06-11 17:22] LABS: BASOPHILS # (AUTO) 0.1 10^3/uL (0.0-0.1); BASOPHILS % (AUTO) 1 % (0-10); EOSINOPHILS # (AUTO) 0.2 10^3/uL (0.0-0.3); EOSINOPHILS % (AUTO) 2 % (0-10); HEMATOCRIT 34 % (40-54); HEMOGLOBIN 10.8 G/DL (13.3-17.7); LYMPHOCYTES % (AUTO) 13 % (12-44); MEAN CORPUSCULAR HEMOGLOBIN 31 PG (25-34); MEAN CORPUSCULAR HGB CONC 32 G/DL (32-36); MEAN CORPUSCULAR VOLUME 97 FL (80-99); MEAN PLATELET VOLUME 12.8 FL (7.4-10.4); MONOCYTES # (AUTO) 0.4 X 10^3 (0.0-1.0); MONOCYTES % (AUTO) 6 % (0-12); NEUTROPHILS # (AUTO) 5.8 X 10^3 (1.8-7.8); NEUTROPHILS % (AUTO) 79 % (42-75); PLATELET COUNT 141 10^3/uL (130-400); RED BLOOD COUNT 3.49 10^6/uL (4.35-5.85); RED CELL DISTRIBUTION WIDTH 20.2 % (10.0-14.5); WHITE BLOOD COUNT 7.3 10^3/uL (4.3-11.0)
--- NOTE | 2017-06-11 17:32 | ED Chest Pain ---
General Chief Complaint: Chest Pain Stated Complaint: SOB, CP Nursing Triage Note: PT CO OF CHEST PAIN STATES HAS HAD FOR A COUPLE OF DAYS, HAS SOME SOA, PT TEARFUL, PT HAS CHRONIC ULCER TO L LOWER EXT. Nursing Sepsis Screen: No Definite Risk Source: patient Exam Limitations: no limitations History of Present Illness Date Seen by Provider: Jun 11, 2017 Time Seen by Provider: 16:46 Initial Comments Here with report of shortness of breath that is worse over the past couple weeks and has had some chest tightness for the last couple of days. He is followed in the wound care clinic for chronic left lower extremity diabetic ulcer. General feels weak and not well. Does report chest pain but states it' s actually tightness or pressure and has been going on for a couple days as well. Does have extensive cardiac history including CABG and stenting. Timing/Duration: 2-3 days Severity/Quality: moderate, tightness Location: central Radiation: no radiation Activities at Onset: none Prior CP/Workup: cardiac cath, echocardiography, heart attack, stress test Modifying Factors: worse with exercise, improves with rest ASA po COLD ROLLER: No NTG SL COLD ROLLER: No Associated Symptoms: No abdominal pain, No back pain, No diaphoresis, No dizziness, edema, fatigue, No fever/chills, No nausea/vomiting, shortness of breath, weakness Allergies and Home Medications Allergies Coded Allergies: oxycodone HCl (Unverified Allergy, Unknown, HAS RECEIVED HYDROMORPHONE W/ O ISSUE, 05/21/14) protamine (Unverified Allergy, Unknown, 04/23/14) Home Medications Amlodipine Besylate 10 Mg Tablet, 10 MG PO DAILY PRN for BLOOD PRESSURE, ( Reported) Aspirin 81 Mg Tablet.dr, 81 MG PO DAILY, (Reported) Clopidogrel Bisulfate 75 Mg Tablet, 75 MG PO DAILY, (Reported) Hydrocodone/Acetaminophen 1 Each Tablet, 1 EACH PO QID PRN for PAIN-MILD TO MODERATE, (Reported) Insulin Aspart 300 Units/3 Ml Solution, 30-34 UNITS SQ TIDAC, (Reported) Insulin Aspart 100 Unit/1 Ml Susp, 34-38 UNIT SQ TIDAC, (Reported) Insulin Determir 1,000 Units/10 Ml Soln, 30 UNITS SQ AM, (Reported) Isosorbide Mononitrate 30 Mg Tab.er.24h, 30 MG PO DAILY, (Reported) Levothyroxine Sodium 200 Mcg Tablet, 200 MCG PO DAILY, (Reported) Linezolid 600 Mg Tablet, 600 MG PO BID, (Reported) Lovastatin 20 Mg Tablet, 20 MG PO DAILY, (Reported) Nitroglycerin 0.4 Mg Tab.subl, 0.4 MG SL UD, (Reported) [place] 3 Polyunsat Fatty Acids 1,000 Mg Cap, 1,000 MG PO DAILY, (Reported) Sodium Hypochlorite 473 Ml Bot, 1 EA MC BID, (Reported) Patient Home Medication List Home Medication List Reviewed: Yes Review of Systems Constitutional: see HPI, No chills, No fever, malaise, weakness EENTM: No Symptoms Reported Respiratory: See HPI, Shortness of Air, SOA at Rest Cardiovascular: Chest Pain, Edema Gastrointestinal: Denies Nausea, Denies Vomiting Genitourinary: No Symptoms Reported Musculoskeletal: no symptoms reported Skin: other (chronic wound to left lower extremity) Psychiatric/Neurological: Depressed, Weakness Endocrine: No Symptoms Reported All Other Systems Reviewed Negative Unless Noted: Yes Past Uiwpsus-Iwdlds-Bpofbn Hx Patient Social History Alcohol Use: Rarely Uses Number of Drinks Today: AA Alcohol Beverage of Choice: Beer Recreational Drug Use: No Smoking Status: Former Smoker Type Used: Cigars Former Smoker, Quit: May 28, 2016 Recent Foreign Travel: No Contact w/Someone Who Travel: No Recent Infectious Disease Expo: No Recent Hopitalizations: No Physical Abuse: No Sexual Abuse: No Immunizations Up To Date Tetanus Booster (TDap): Unknown Seasonal Allergies Seasonal Allergies: No Surgeries History of Surgeries: Yes (BUNIONECTOMY BILAT FEET; LEFT BIG TOE AND ONE NEXT TO IT, ALL TOES ON RIGHT) Surgeries: CABG, Gallbladder, Vascular Surgery Respiratory History of Respiratory Disorde: No Respiratory Disorders: Sleep Apnea Currently Using CPAP: No Currently Using BIPAP: No Cardiovascular History of Cardiac Disorders: Yes Cardiac Disorders: Coronary Artery Disease, Heart Attack, High Cholesterol, Hypertension, Peripheral Vascular Neurological History of Neurological Disord: Yes Neurological Disorders: Neuropathy Reproductive System Hx Reproductive Disorders: No Sexually Transmitted Disease: No HIV/AIDS: No Genitourinary History of Genitourinary Disor: Yes Genitourinary Disorders: Renal Failure Gastrointestinal History of Gastrointestinal Di: No (OCC REFLUX) Gastrointestinal Disorders: Gastroesophageal Reflux Musculoskeletal History of Musculoskeletal Dis: Yes (RIGHT FOOT TOES AMPUTEE 06/08/16, 1ST AND 2ND LEFT TOES) Musculoskeletal Disorders: Amputee, Arthritis, Chronic Back Pain Endocrine History of Endocrine Disorders: Yes Endocrine Disorders: Diabetes, Insulin dep, Hypothyroidsim HEENT History of HEENT Disorders: Yes HEENT Disorders: Cataract Loss of Vision: Left Hearing Impairment: Denies Cancer History of Cancer: No Psychosocial History of Psychiatric Problem: Yes Behavioral Health Disorders: Sleep Difficulties Suicide Risk Score: 0 Integumentary History of Skin or Integumenta: Yes (hx of diabetic ulcer) Skin/Integumentary Disorders: Recent Skin Changes Blood Transfusions History of Blood Disorders: No Adverse Reaction to a Blood Tr: No Reviewed Nursing Assessment Reviewed/Agree w Nursing PMH: Yes Family Medical History Significant Family History: No Pertinent Family Hx Family Medial History: Alzheimer's disease 19 FATHER BLOOD Cardiovascular disease 19 MOTHER Diabetes mellitus 19 FATHER G8 SISTER FH: blood disorder G8 SISTER (SPECULATION) Hypertension 19 MOTHER Myocardial infarction 19 MOTHER Physical Exam Vital Signs Vital Signs - First Documented 06/11/17 16:55 Temp 97.4 Pulse 95 Resp 18 B/P (MAP) 142/77 (98) Pulse Ox 98 O2 Delivery Room Air Capillary Refill : Less Than 3 Seconds General Appearance: WD/WN, Anxious, Mild Distress HEENT: PERRL/EOMI, Pharynx Normal Neck: Non Tender, Supple Respiratory: Lungs Clear, Normal Breath Sounds Cardiovascular: Regular Rate, Rhythm, No Murmur Gastrointestinal: Non Tender, Soft Extremity: Non Tender, Pedal Edema (2+ edema bilateral lower extremities up to level of the knees. Has wound that is dressed by wound care to the left lower extremity with dressing in place.) Neurologic/Psychiatric: Alert, Oriented x3 Skin: Normal Color, Warm/Dry Focused Exam Evaluation Lactate Level Laboratory Tests 06/11/17 17:58: Lactic Acid Level Laboratory Tests Test 06/11/17 17:58 Progress/Results/Core Measures Results/Orders Lab Results Laboratory Tests Test 06/11/17 17:10 06/11/17 17:40 06/11/17 17:58 Range/Units White Blood Count 7.3 4.3-11.0 10^3/uL Red Blood Count 3.49 L 4.35-5.85 10^6/uL Hemoglobin 10.8 L 13.3-17.7 G/DL Hematocrit 34 L 40-54 % Mean Corpuscular Volume 97 80-99 FL Mean Corpuscular Hemoglobin 31 25-34 PG Mean Corpuscular Hemoglobin Concent 32 32-36 G/DL Red Cell Distribution Width 20.2 H 10.0-14.5 % Platelet Count 141 130-400 10^3/uL Mean Platelet Volume 12.8 H 7.4-10.4 FL Neutrophils (%) (Auto) 79 H 42-75 % Lymphocytes (%) (Auto) 13 12-44 % Monocytes (%) (Auto) 6 0-12 % Eosinophils (%) (Auto) 2 0-10 % Basophils (%) (Auto) 1 0-10 % Neutrophils # (Auto) 5.8 1.8-7.8 X 10^3 Lymphocytes # (Auto) 1.0 1.0-4.0 X 10^3 Monocytes # (Auto) 0.4 0.0-1.0 X 10^3 Eosinophils # (Auto) 0.2 0.0-0.3 10^3/uL Basophils # (Auto) 0.1 0.0-0.1 10^3/uL Sodium Level 140 135-145 MMOL/L Potassium Level 4.4 3.6-5.0 MMOL/L Chloride Level 112 H 98-107 MMOL/L Carbon Dioxide Level 18 L 21-32 MMOL/L Anion Gap 10 5-14 MMOL/L Blood Urea Nitrogen 23 H 7-18 MG/DL Creatinine 1.93 H 0.60-1.30 MG/DL Estimat Glomerular Filtration Rate 36 BUN/Creatinine Ratio 12 Glucose Level 197 H 70-105 MG/DL Calcium Level 8.7 8.5-10.1 MG/DL Magnesium Level 1.8 1.8-2.4 MG/DL Total Bilirubin 1.3 H 0.1-1.0 MG/DL Aspartate Amino Transf (AST/SGOT) 42 H 5-34 U/L Alanine Aminotransferase (ALT/SGPT) 43 0-55 U/L Alkaline Phosphatase 137 H 40-136 U/L Myoglobin 142.0 H 10.0-92.0 NG/ML Troponin I < 0.30 <0.30 NG/ML B-Type Natriuretic Peptide 8415.4 H <100.0 PG/ML Total Protein 5.8 L 6.4-8.2 GM/DL Albumin 3.5 3.2-4.5 GM/DL Lipase 25 8-78 U/L Prothrombin Time 15.1 H 12.2-14.7 SEC INR Comment 1.2 0.8-1.4 Activated Partial Thromboplast Time 30 24-35 SEC My Orders Orders - SONY SEO MD Cbc With Automated Diff (06/11/17 17:08) Magnesium (06/11/17 17:08) Chest 1 View, Ap/Pa Only (06/11/17 17:08) Ekg Tracing (06/11/17 17:08) Cardiac Profile 1 (06/11/17 17:08) Comprehensive Metabolic Panel (06/11/17 17:08) Myoglobin Serum (06/11/17 17:08) Protime With Inr (06/11/17 17:08) Partial Thromboplastin Time (06/11/17 17:08) O2 (06/11/17 17:08) Monitor-Rhythm Ecg Trace Only (06/11/17 17:08) Lipid Panel (06/12/17 06:00) Aspirin Chewable Tablet (Baby Aspirin Ch (06/11/17 17:15) Saline Lock/Iv-Start (06/11/17 17:08) Lipase (06/11/17 17:08) BNP (06/11/17 17:08) Lactic Acid Analyzer (06/11/17 17:50) Blood Culture (06/11/17 17:50) Albuterol Pre-Mix Nebs (Rt) (Proventil (06/11/17 18:10) Svn Sm Volume Nebulizer Rt-Rfs (06/11/17 18:10) Furosemide Injection (Lasix Injection) (06/11/17 18:12) General/Regular (06/11/17 Dinner) Albuterol Pre-Mix Nebs (Rt) (Proventil (06/11/17 18:27) Svn Sm Volume Nebulizer Rt-Rfs (06/11/17 18:27) Rocephin 1g/Ns Iv (06/11/17 18:30) Medications Given in ED Current Medications Medications Dose Ordered Sig/Agustin Route Start Time Stop Time Status Last Admin Dose Admin Aspirin 324 mg ONCE ONCE PO 06/11/17 17:15 06/11/17 17:16 DC 06/11/17 17:35 324 MG Vital Signs/I&O Vital Sign - Last 12Hours 06/11/17 06/11/17 16:55 16:55 Temp 97.4 Pulse 95 Resp 18 B/P (MAP) 142/77 (98) Pulse Ox 98 O2 Delivery Room Air Blood Pressure Mean: 98 Progress Note : Progress Note Seen and evaluated. IV, labs, EKG and chest x-ray ordered. ASA 324 mg by mouth ordered. Albuterol neb ordered. Concerns for pneumonia. Blood cultures and lactic acid ordered. Monitor patient. 1814: I discussed the case with Dr. Bobo due to concerns of pneumonia and CHF. BNP is significantly elevated. We will give Lasix and treatment for pneumonia. We will initiate Rocephin and azithromycin protocol. Rocephin 1 g IV ordered. We will give him a breathing treatment now with albuterol. 1819: I discussed the case with Dr. Roy and he will see the patient tonight. Lasix 40 mg IV ordered and will continue that twice a day. Patient is a mixed picture for ammonia/CHF and both may be involved and we will treat both. All of this was discussed with the patient who agrees. Admit, inpatient status. Patient agrees with plan. ECG Initial ECG Impression Date: Jun 11, 2017 Initial ECG Impression Time: 16:55 Initial ECG Rate: 89 Initial ECG Rhythm: Normal Sinus Initial ECG Comparisson: Changed Comment Sinus rhythm with left axis deviation. No evidence of ST elevation [place]. [employer] change from previous of 06/27/16. Interpreted by me Diagnostic Imaging Diagonstic Imaging: Xray Plain Films/CT/US/NM/MRI: chest Comments VIA [facility], [facility]. [place], [place] NAME: EMILIO TELLEZ [facility] REC#: [id number] PT STATUS: REG ER : 1960 PHYSICIAN: SONY SEO MD ADMIT DATE: 06/11/17/ER Draft Date of Exam:06/11/17 CHEST 1 VIEW, AP/PA ONLY INDICATION: Chest tightness. TIME OF EXAM: 05:26 p.m. Correlation is made with prior study from 05/01/2017. FINDINGS: Changes of median sternotomy are noted. Right chest wall port has tip overlying the SVC. Patient has developed some infiltrate in both bases, partially obscuring the diaphragms. The mid and upper lung bean are clear. No pneumothorax is seen. IMPRESSION: Development of bibasilar pulmonary infiltrate suggestive of pneumonia. Dictated on workstation # [id number] Dict: 06/11/17 1731 Trans: 06/11/17 1734 [id number] Interpreted by: BETTIE ROBERT MD Electronically signed by: Departure Communication (Admissions) Time/Spoke to Admitting Phy: 18:15 Time/Spoke to Consulting Phy: 18:20 Impression Impression: Primary Impression: Bilateral pneumonia Qualified Codes: J18.9 - Pneumonia, unspecified organism Additional Impressions: Acute heart failure Qualified Codes: I50.9 - Heart failure, unspecified Chest pain Qualified Codes: R07.9 - Chest pain, unspecified Disposition: 09 ADMITTED INPATIENT Condition: Stable Admissions Decision to Admit Reason: Admit from ER (General) Decision to Admit/Date: Jun 11, 2017 Time/Decision to Admit Time: 18:15 Departure-Patient Inst. Referrals: ABIODUN SOLANO DO (PCP/Family) Primary Care Physician SONY SEO MD Jun 11, 2017 17:32
[2017-06-11 17:39] LABS: ALANINE AMINOTRANSFERASE 43 U/L (0-55); ALBUMIN 3.5 GM/DL (3.2-4.5); ALKALINE PHOSPHATASE 137 U/L (40-136); BILIRUBIN,TOTAL 1.3 MG/DL (0.1-1.0); BUN/CREATININE RATIO 12; CALCIUM 8.7 MG/DL (8.5-10.1); CARBON DIOXIDE 18 MMOL/L (21-32); CHLORIDE 112 MMOL/L (98-107); CREATININE SERUM 1.93 MG/DL (0.60-1.30); GFR ESTIMATED 36; GLUCOSE 197 MG/DL (70-105); LIPASE 25 U/L (8-78); MAGNESIUM 1.8 MG/DL (1.8-2.4); POTASSIUM 4.4 MMOL/L (3.6-5.0); SODIUM 140 MMOL/L (135-145); TOTAL PROTEIN 5.8 GM/DL (6.4-8.2)
[2017-06-11 17:56] LABS: INR 1.2 (0.8-1.4); PROTHROMBIN TIME PATIENT 15.1 SEC (12.2-14.7)
[2017-06-11] MEDS ORDERED: RT-ALBUTEROL SULF 2.5 MG/3 ML PRE-MIX VIAL INH STA ×2 (18:10→18:27)
[2017-06-11] MEDS ORDERED: FUROSEMIDE 40 MG/4 ML INJ (LASIX) IV STA (18:12)
[2017-06-11] MEDS ORDERED: cefTRIAXone INJECTION 1,000 MG in NS (IVPB) 100 ML IV ONE (18:30)
--- OUTSIDE RECORDS SUMMARY | 2017-06-11 18:50 | XMS REPORT | Clinical Summary ---
Author Author [facility] Organization [facility] Address Unknown Phone Unavailable Care Team Providers [employer] Name Role Phone Madelaine Salinas Unavailable Unavailable Tanvir Lorenzo MD Unavailable Jemal Chaudhary PCP Source Comments Some departments are not documenting in the electronic medical record. If you do not see the information that you expected, contact Release of Information in the Health Information Management department at [phone] for further assistance in locating additional records.[facility] Allergies Active Allergy Reactions Severity Noted [...] Coronary atherosclerosis of unspecified type of vessel, salamatof or graft, Postsurgical aortocoronary bypass status, Obstructive [...] artery disease) Overview: 01/06/09- CABG x 4 ([facility]): Left internal thoracic artery-LAD. SVG-DIAG, SVG-OM1 [...] PHYSICAL (COMPREHENSIVE) 08/25/1966 EXAM PERTUSSIS VACCINE 08/25/1970 HIV SCREENING 08/25/1974 TETANUS VACCINE 08/25/1976 DILATED EYE EXAM 08/25/1977 FOOT EXAM 08/25/1977 HBA1C 08/25/1977 MICROALBUMIN 08/25/1977 PNEUMONIA VACCINE (DM) 08/25/1977 COLORECTAL CANCER 08/25/2009 SCREENING INFLUENZA VACCINE 12/23/2017 Results Not on filefrom Last 3 Months
[2017-06-11] MEDS ORDERED: FUROSEMIDE 40 MG/4 ML INJ (LASIX) IVP ONE (19:30)
--- NOTE | 2017-06-11 19:30 | Consultation-Cardiology ---
HPI-Cardiology Cardiology Consultation Date of Consultation 06/11/17 Date of Admission Time Seen by Provider: 19:24 Indication: Shortness of breath HPI 56 years old gentleman with extensive cardiac history, start to have increasing shortness of breath and peripheral edema which has been worsening, had extensive peripheral arterial disease and coronary artery disease which will be described below. Given to the emergency room, had a chest x-ray showed possible pulmonary infiltrate. Patient is sitting upright in bed, having worsening orthopnea, denied any fever or chills, has been having occasional cough. Feeling mild chest pressure and tightness. Denied any syncope. Home Medications & Allergies Allergies: Coded Allergies: oxycodone HCl (Unverified Allergy, Unknown, HAS RECEIVED HYDROMORPHONE W/ O ISSUE, 05/21/14) protamine (Unverified Allergy, Unknown, 04/23/14) Home Medication List Reviewed: Yes AXR-Cjomxr-Asolqo Hx Patient Social History Marital Status: Employed/Student: retired Alcohol Use: Rarely Uses Recreational Drug Use: No Smoking Status: Former Smoker Former smoker/When Quit: Jun 23, 2012 Type Used: Cigars Recent Foreign Travel: No Recent Infectious Disease Expo: No Recent Hopitalizations: No Immunizations Up To Date Tetanus Booster (TDap): Unknown Past Medical History Past medical history is discussed below Family Medical History Significant Family History: No Pertinent Family Hx Family History: Alzheimer's disease 19 FATHER BLOOD Cardiovascular disease 19 MOTHER Diabetes mellitus 19 FATHER G8 SISTER FH: blood disorder G8 SISTER (SPECULATION) Hypertension 19 MOTHER Myocardial infarction 19 MOTHER Constitutional: see HPI, malaise, weakness EENTM: see HPI, no symptoms reported Respiratory: see HPI, cough, dyspnea on exertion, orthopnea, short of breath Cardiovascular: see HPI, chest pain, edema Gastrointestinal: no symptoms reported, see HPI Genitourinary: no symptoms reported, see HPI Musculoskeletal: see HPI, back pain, joint pain Skin: see HPI, lesions (Foot ulcer) Psychiatric/Neurological: No Symptoms Reported, See HPI Reviewed Test Results Reviewed Test Results Lab Laboratory Tests Test 06/11/17 17:10 06/11/17 17:40 06/11/17 17:58 Range/Units White Blood Count 7.3 4.3-11.0 10^3/uL Red Blood Count 3.49 L 4.35-5.85 10^6/uL Hemoglobin 10.8 L 13.3-17.7 G/DL Hematocrit 34 L 40-54 % Mean Corpuscular Volume 97 80-99 FL Mean Corpuscular Hemoglobin 31 25-34 PG Mean Corpuscular Hemoglobin Concent 32 32-36 G/DL Red Cell Distribution Width 20.2 H 10.0-14.5 % Platelet Count 141 130-400 10^3/uL Mean Platelet Volume 12.8 H 7.4-10.4 FL Neutrophils (%) (Auto) 79 H 42-75 % Lymphocytes (%) (Auto) 13 12-44 % Monocytes (%) (Auto) 6 0-12 % Eosinophils (%) (Auto) 2 0-10 % Basophils (%) (Auto) 1 0-10 % Neutrophils # (Auto) 5.8 1.8-7.8 X 10^3 Lymphocytes # (Auto) 1.0 1.0-4.0 X 10^3 Monocytes # (Auto) 0.4 0.0-1.0 X 10^3 Eosinophils # (Auto) 0.2 0.0-0.3 10^3/uL Basophils # (Auto) 0.1 0.0-0.1 10^3/uL Sodium Level 140 135-145 MMOL/L Potassium Level 4.4 3.6-5.0 MMOL/L Chloride Level 112 H 98-107 MMOL/L Carbon Dioxide Level 18 L 21-32 MMOL/L Anion Gap 10 5-14 MMOL/L Blood Urea Nitrogen 23 H 7-18 MG/DL Creatinine 1.93 H 0.60-1.30 MG/DL Estimat Glomerular Filtration Rate 36 BUN/Creatinine Ratio 12 Glucose Level 197 H 70-105 MG/DL Calcium Level 8.7 8.5-10.1 MG/DL Magnesium Level 1.8 1.8-2.4 MG/DL Total Bilirubin 1.3 H 0.1-1.0 MG/DL Aspartate Amino Transf (AST/SGOT) 42 H 5-34 U/L Alanine Aminotransferase (ALT/SGPT) 43 0-55 U/L Alkaline Phosphatase 137 H 40-136 U/L Myoglobin 142.0 H 10.0-92.0 NG/ML Troponin I < 0.30 <0.30 NG/ML B-Type Natriuretic Peptide 8415.4 H <100.0 PG/ML Total Protein 5.8 L 6.4-8.2 GM/DL Albumin 3.5 3.2-4.5 GM/DL Lipase 25 8-78 U/L Prothrombin Time 15.1 H 12.2-14.7 SEC INR Comment 1.2 0.8-1.4 Activated Partial Thromboplast Time 30 24-35 SEC Lactic Acid Level 0.98 0.50-2.00 MMOL/L Physical Exam Vital Signs Vital Signs - First Documented 06/11/17 16:55 Temp 97.4 Pulse 95 Resp 18 B/P (MAP) 142/77 (98) Pulse Ox 98 O2 Delivery Room Air Capillary Refill : Less Than 3 Seconds General Appearance: WD/WN, Mild Distress Eyes: Bilateral Eye Normal Inspection, Bilateral Eye PERRL, Bilateral Eye EOMI HEENT: PERRL/EOMI, TMs Normal, Normal ENT Inspection, Pharynx Normal Neck: Full Range of Motion, Normal Inspection, Non Tender, Supple, Carotid Bruit, JVD Respiratory: Chest Non Tender, Accessory Muscle Use, Crackles, Decreased Breath Sounds Cardiovascular: Regular Rate, Rhythm, No Edema, Normal Peripheral Pulses, Systolic Murmur, Gallop/S3, JVD Gastrointestinal: Normal Bowel Sounds, No Organomegaly, No Pulsatile Mass, Non Tender, Soft Back: Normal Inspection, No CVA Tenderness, No Vertebral Tenderness Extremity: Normal Range of Motion, No Calf Tenderness, Pedal Edema, Slow Capillary Refill, Other (Left foot ulcer) Neurologic/Psychiatric: Alert, Oriented x3, No Motor/Sensory Deficits, Normal Mood/Affect Skin: Normal Color, Warm/Dry Lymphatic: No Adenopathy A/P-Cardiology Admission Diagnosis Shortness of breath Pneumonia Congestive heart failure Coronary artery disease Chest pain Assessment/Plan Dyspnea, pulmonary edema and pulmonary infiltrates, patient was admitted to telemetry, started on IV antibiotic and diuretics. Continue to monitor response. Blood cultures were done. Monitor kidney functions Generalized fatigue and loss of energy, started on empiric antibiotics. Managed by primary care physician. Continue to monitor Chest pain, tightness and discomfort, extensive coronary artery disease as described below. Continue to monitor, might require cardiac catheterization. Coronary artery disease, history of CABG 4 in 2008 with cardiac catheterization June 02, [address] Arvizu revealing severe three-vessel [place] coronary artery disease with non-bypassed RCA, patent OSBORNE to LAD, patent vein graft to first diag, patent vein graft to first OM. There was occluded jump graft to the second obtuse marginal branch with successful PCI using bare-metal vision stent 3.0 x 28 mm to the second OM. At that time was reported patient staged intervention to the right and third OM branch after gallbladder removal by Dr. Arvizu, had stress test done at [facility] within then and no further intervention was made. Patient was to be scheduled for [facility] with intervention after healing of Left foot ulcer, however, patient did not follow up, Cardiac catheterization was carried out by Dr. Busch in January 2015 and reported as patent OSBORNE to the LAD vein graft to the diagonal artery and vein graft to the obtuse marginal artery, small vessel disease distally, the right coronary artery has severe diffuse disease, Dr. Busch felt that it is high risk for intervention at this time, medical therapy is recommended. Patient will require significant amount of stenting with limited benefit. I will reevaluate the need for cardiac catheterization Congestive heart failure, last echocardiogram showed ejection fraction 50-55 percent. Significant elevation in BNP level, probably ischemic cardiomyopathy, reevaluate 2-D echocardiogram in a.m. Significant peripheral arterial disease, multiple intervention by Dr. Beebe in the past. Extensive workup in the past, last angiogram was done on May 30, 2016 which showed on the right side subtotal occlusion of the anterior tibial artery, severe disease at the posterior tibial and peroneal artery and distal popliteal artery successful balloon angioplasty to the anterior tibial artery using 2.0 then 3.0 balloon with excellent results, balloon angioplasty to the popliteal artery using Lutonix 4.018 mm with excellent results. Patient has stent extending throughout the left SFA down to the popliteal and common femoral artery, good flow, at the trifurcation there is occlusion of stents in the anterior tibial artery, the posterior tibial artery and peroneal arteries were occluded. Underwent repeat angiogram in April 2017 which showed: 1. Total occlusion of the left anterior tibial artery, complex intervention using multiple wires and balloons with reestablishment of the flow down to the foot 2. Mild to moderate disease it the distal common femoral artery beyond the stent. Nonobstructive disease 3. Slow flow on the right lower chin to down to the trifurcation Fractured port s/p angio with retrieval of fractured lead. Doing well at this time. Hypertension, I will restart home medication monitor blood pressure Hyperlipidemia, continue to monitor. Diabetes mellitus, followed and monitored by primary care physician. Chronic renal insufficiency, continue to monitor renal function while on diuretics Tobaccoism, occasional smoking, educated on avoiding any tobacco product. Mild bilateral nonobstructive carotid artery stenosis, last carotid ultrasound was done June 26, 2016, continue to monitor. History of Noncompliance with medications, educated about compliance with medication. Dr. Zaragoza is covering Clinical Quality Measures AMI/AHF: ASA po Prior to arrival: JORDEN Crump MD Jun 11, 2017 19:30
[2017-06-11 19:45] VITALS: BP 114/73
[2017-06-11] MEDS ORDERED: FUROSEMIDE 40 MG/4 ML INJ (LASIX) IVP SCH (19:59)
[2017-06-11] MEDS ORDERED: NS IV 1000 ML 1,000 ML IV SCH (20:00)
[2017-06-11] MEDS ORDERED: AZITHROMYCIN 500 MG/NS 250 ML IVPB IV NR ×2 (20:01)
[2017-06-11] MEDS ORDERED: NITROGLYCERIN 0.4 MG SL TABS BTL 25'S SL PRN (20:15)
[2017-06-11] MEDS: ISOSORBIDE MONONITRATE 30 MG (IMDUR) TAB PO SCH (21:33)
[2017-06-11] MEDS: ENOXAPARIN 80 MG/0.8 ML (LOVENOX) SYR SC SCH (21:33)
[2017-06-11] MEDS: inSUlin (REGULAR) HUMAN 1 UNIT/0.01 ML (CHARGE PER UNIT) SC SCH (21:46)
[2017-06-11 21:50] VITALS: BP 146/84
[2017-06-11] MEDS ORDERED: RT-ALBUTEROL/IPRATROPIUM 3 ML (DUONEB) VIAL INH PRN (22:00)
[2017-06-11] MEDS: PROMETHAZINE/ CODEINE SYRUP 5 ML UDC PO PRN (23:00)
[2017-06-11] MEDS ORDERED: ONDANSETRON 4 MG/2 ML (SDV) Z0FRAN IVP PRN (23:00)
[2017-06-12] VITALS (7 sets, daily range): BP systolic 100–157; BP diastolic 63–77
[2017-06-12] MEDS: RT-ALBUTEROL/IPRATROPIUM 3 ML (DUONEB) VIAL INH SCH ×4 (02:11→18:58)
[2017-06-12] MEDS: PROMETHAZINE/ CODEINE SYRUP 5 ML UDC PO PRN ×2 (04:52→23:32)
[2017-06-12 05:12] LABS: BASOPHILS # (AUTO) 0.1 10^3/uL (0.0-0.1); BASOPHILS % (AUTO) 1 % (0-10); EOSINOPHILS # (AUTO) 0.3 10^3/uL (0.0-0.3); EOSINOPHILS % (AUTO) 4 % (0-10); HEMATOCRIT 32 % (40-54); LYMPHOCYTES # (AUTO) 1.4 X 10^3 (1.0-4.0); LYMPHOCYTES % (AUTO) 18 % (12-44); MEAN CORPUSCULAR HEMOGLOBIN 31 PG (25-34); MEAN CORPUSCULAR HGB CONC 32 G/DL (32-36); MEAN CORPUSCULAR VOLUME 98 FL (80-99); MEAN PLATELET VOLUME 12.7 FL (7.4-10.4); MONOCYTES # (AUTO) 0.6 X 10^3 (0.0-1.0); MONOCYTES % (AUTO) 7 % (0-12); NEUTROPHILS # (AUTO) 5.3 X 10^3 (1.8-7.8); NEUTROPHILS % (AUTO) 70 % (42-75); PLATELET COUNT 139 10^3/uL (130-400); RED BLOOD COUNT 3.23 10^6/uL (4.35-5.85); RED CELL DISTRIBUTION WIDTH 19.9 % (10.0-14.5); WHITE BLOOD COUNT 7.6 10^3/uL (4.3-11.0)
[2017-06-12 05:48] LABS: ALANINE AMINOTRANSFERASE 37 U/L (0-55); ALBUMIN 3.2 GM/DL (3.2-4.5); ALKALINE PHOSPHATASE 113 U/L (40-136); BILIRUBIN,TOTAL 0.9 MG/DL (0.1-1.0); BUN/CREATININE RATIO 12; CALCIUM 8.2 MG/DL (8.5-10.1); CARBON DIOXIDE 19 MMOL/L (21-32); CHLORIDE 112 MMOL/L (98-107); CHOLESTEROL 95 MG/DL (< 200); CREATININE SERUM 2.11 MG/DL (0.60-1.30); GFR ESTIMATED 33; GLUCOSE 93 MG/DL (70-105); HDL CHOLESTEROL 32 MG/DL (40-60); POTASSIUM 4.2 MMOL/L (3.6-5.0); SODIUM 142 MMOL/L (135-145); TOTAL PROTEIN 5.5 GM/DL (6.4-8.2); TRIGLYCERIDES 75 MG/DL (<150); VLDL CHOLESTEROL 15 MG/DL (5-40)
[2017-06-12] MEDS: inSUlin (REGULAR) HUMAN 1 UNIT/0.01 ML (CHARGE PER UNIT) SC SCH ×2 (06:08→13:09)
[2017-06-12] MEDS ORDERED: FUROSEMIDE 40 MG/4 ML INJ (LASIX) IVP SCH (07:00)
[2017-06-12] MEDS ORDERED: INFLUENZA TRIvalent 2017-2018 0.5 ML/45 MCG SYR IM ONE (07:30)
[2017-06-12] MEDS: ASPIRIN E.C. 81 MG (ECOTRIN) TAB PO SCH (08:37)
[2017-06-12] MEDS: ENOXAPARIN 80 MG/0.8 ML (LOVENOX) SYR SC SCH ×2 (08:37→19:47)
[2017-06-12] MEDS: ISOSORBIDE MONONITRATE 30 MG (IMDUR) TAB PO SCH (08:37)
[2017-06-12] MEDS: CLOPIDOGREL 75 MG (PLAVIX) TABLET PO SCH (08:37)
--- NOTE | 2017-06-12 11:44 | Wound Care Assessment ---
Wound Care Assessment Date Seen by Provider: Jun 12, 2017 Time Seen by Provider: 11:36 Chief Complaint L heel ulcer HPI The patient is a 56 year old male with long-standing DFU of L lateral heel, which has been improving in [employer]. He is followed in [facility] by Tamara Borden M.D. He has been admitted to the hospital for respiratory distress. He is placed on rbd-[id number]-ygyiyno L foot and the TCC is removed. Begin silver alginate dressings. The wound is slightly macerated. Past Medical History: Admits Diabetes Type II, Admits Heart Disease, Admits Peripheral Artery Disease Smoking Status: Former Smoker Recreational Drug Use: No Alcohol Use: Rarely Uses Review of Systems Pulmonary: Dyspnea Cardiovascular: Chest Pain, Edema Exam Vital Signs Date Time Temp Pulse Resp B/P (MAP) Pulse Ox O2 Delivery O2 Flow Rate FiO2 06/12/17 09:01 94 Nasal Cannula 2.00 06/12/17 07:52 98.2 74 22 110/63 (79) 06/11/17 21:50 21 Capillary Refill : Less Than 3 SecondsLess Than 3 Seconds General Appearance: no apparent distress Respiratory: no respiratory distress Skin: other (L lateral heel -- 1.7 x 1.3 x 0.6 cm, base 50% slough, 50% granulation, periwound macerated, mod. s.s. drainage.) Results Laboratory Tests 06/11/17 17:10: White Blood Count 7.3, Red Blood Count 3.49L, Hemoglobin 10.8L, Hematocrit 34L, Mean Corpuscular Volume 97, Mean Corpuscular Hemoglobin 31, Mean Corpuscular Hemoglobin Concent 32, Red Cell Distribution Width 20.2H, Platelet Count 141, Mean Platelet Volume 12.8H, Neutrophils (%) (Auto) 79H, Lymphocytes (%) (Auto) 13, Monocytes (%) (Auto) 6, Eosinophils (%) (Auto) 2, Basophils (%) (Auto) 1, Neutrophils # (Auto) 5.8, Lymphocytes # (Auto) 1.0, Monocytes # (Auto) 0.4, Eosinophils # (Auto) 0.2, Basophils # (Auto) 0.1, Sodium Level 140, Potassium Level 4.4, Chloride Level 112H, Carbon Dioxide Level 18L, Anion Gap 10, Blood Urea Nitrogen 23H, Creatinine 1.93H, Estimat Glomerular Filtration Rate 36, BUN/ Creatinine Ratio 12, Glucose Level 197H, Calcium Level 8.7, Magnesium Level 1.8 , Total Bilirubin 1.3H, Aspartate Amino Transf (AST/SGOT) 42H, Alanine Aminotransferase (ALT/SGPT) 43, Alkaline Phosphatase 137H, Myoglobin 142.0H, Troponin I < 0.30, B-Type Natriuretic Peptide 8415.4H, Total Protein 5.8L, Albumin 3.5, Lipase 25 06/11/17 17:40: Prothrombin Time 15.1H, INR Comment 1.2, Activated Partial Thromboplast Time 30 06/11/17 17:58: Lactic Acid Level 0.98 06/11/17 21:42: Glucometer 251H 06/11/17 22:40: Glucometer 270H 06/12/17 05:05: White Blood Count 7.6, Red Blood Count 3.23L, Hemoglobin 10.0L, Hematocrit 32L, Mean Corpuscular Volume 98, Mean Corpuscular Hemoglobin 31, Mean Corpuscular Hemoglobin Concent 32, Red Cell Distribution Width 19.9H, Platelet Count 139, Mean Platelet Volume 12.7H, Neutrophils (%) (Auto) 70, Lymphocytes (%) (Auto) 18 , Monocytes (%) (Auto) 7, Eosinophils (%) (Auto) 4, Basophils (%) (Auto) 1, Neutrophils # (Auto) 5.3, Lymphocytes # (Auto) 1.4, Monocytes # (Auto) 0.6, Eosinophils # (Auto) 0.3, Basophils # (Auto) 0.1, Sodium Level 142, Potassium Level 4.2, Chloride Level 112H, Carbon Dioxide Level 19L, Anion Gap 11, Blood Urea Nitrogen 25H, Creatinine 2.11H, Estimat Glomerular Filtration Rate 33, BUN/ Creatinine Ratio 12, Glucose Level 93, Calcium Level 8.2L, Total Bilirubin 0.9, Aspartate Amino Transf (AST/SGOT) 25, Alanine Aminotransferase (ALT/SGPT) 37, Alkaline Phosphatase 113, Troponin I < 0.30, B-Type Natriuretic Peptide 7493.5H , Total Protein 5.5L, Albumin 3.2, Triglycerides Level 75, Cholesterol Level 95 , LDL Cholesterol Direct 49, VLDL Cholesterol 15, HDL Cholesterol 32L Assessment/Plan/Dx 1. Diabetic foot ulcer, L foot, improved. 2. Pneumonia, respiratory failure. Plan: We will remove Total contact [employer] while in hospital, due to risk of swelling in affected leg. Silver alginate dressings, crutch walking to off-load , and follow-up in [facility] post discharge ordered. We will see as needed. EDITH RUTH MD Jun 12, 2017 11:44
--- NOTE | 2017-06-12 13:06 | History & Physical-Hospitalist ---
History of Present Illness HPI/Chief Complaint Pt is a 56yoCm with a PMH of IDDMII, HTN, CAD, CKD who presented to the ER with CC of shortness of breath. He states his symptoms started 3-4 days ago with cough and shortness of breath. He was on an antibiotic for his foot wound and thought it was due to that. He continued to worsen and got so short of breath he thought he was going to pass out. He denies any sputum or fevers but does have orthopnea, leg swelling, and LESTER. He denies any chest pain. He denies a history of heart failure. This morning he reports feeling better and breathing more comfortably. He is requesting discharge tomorrow because he "can't sit in a hospital for 4-5 days." Source: patient Exam Limitations: no limitations Date Seen 06/12/17 Time Seen by Provider: 13:11 Attending Physician Caitlin Bobo MD PCP Ivet Colon DO Referring Physician Date of Admission Jun 11, 2017 at 18:43 Home Medications & Allergies Home Medications Reviewed patient Home Medication Reconciliation performed by pharmacy medication reconciliations appraisal technician and/or nursing. Patients Allergies have been reviewed. Allergies Allergies Coded Allergies oxycodone HCl (Unverified Allergy, Unknown, HAS RECEIVED HYDROMORPHONE W/O ISSUE, 05/21/14) protamine (Unverified Allergy, Unknown, 04/23/14) Past Qqfrasx-Lycxhb-Ztrjyh Hx Past Med/Social Hx: Reviewed Nursing Past Med/Soc Hx, Reviewed and Corrections made Patient Social History Marrital Status: Employed/Student: retired Alcohol Use: Rarely Uses Number of Drinks Today: 0 Alcohol Beverage of Choice: Beer Recreational Drug Use: No Smoking Status: Former Smoker Former Smoker, Quit: May 29, 2017 Type Used: Cigarettes Physical Abuse Screen: No Sexual Abuse: No Recent Foreign Travel: No Contact w/other who traveled: No Recent Hopitalizations: No Recent Infectious Disease Expo: No Immunizations Up To Date Tetanus Booster (TDap): Unknown Seasonal Allergies Seasonal Allergies: No Past Medical History Surgeries: CABG, Gallbladder, Orthopedic, Vascular Surgery Currently Using CPAP: No Currently Using BIPAP: No Cardiac: Coronary Artery Disease, Heart Attack, High Cholesterol, Hypertension , Peripheral Vascular Neurological: Neuropathy Reproductive: No Sexually Transmitted Disease: No HIV/AIDS: No Genitourinary: Renal Failure Gastrointestinal: Gastroesophageal Reflux Musculoskeletal: Amputee, Arthritis, Chronic Back Pain Endocrine: Diabetes, Insulin dep, Hypothyroidsim HEENT: Cataract Loss of Vision: Left Hearing Impairment: Denies Psychosocial: Sleep Difficulties Skin/Integumentary: Recent Skin Changes History of Blood Disorders: No Adverse Reaction to Blood Turner: No Family History Reviewed Nursing Family Hx Alzheimer's disease 19 FATHER BLOOD Cardiovascular disease 19 MOTHER Diabetes mellitus 19 FATHER G8 SISTER FH: blood disorder G8 SISTER (SPECULATION) Hypertension 19 MOTHER Myocardial infarction 19 MOTHER Review of Systems Constitutional: No chills, No fever EENTM: No blurred vision, No double vision, No nose congestion, No throat pain Respiratory: cough, dyspnea on exertion, No hemoptysis, orthopnea, No phlegm, short of breath, No wheezing Cardiovascular: No chest pain, No edema, No palpitations Gastrointestinal: No abdominal pain, No constipation, No diarrhea, No nausea, No vomiting Genitourinary: No dysuria, No frequency Musculoskeletal: No joint pain, No muscle pain, other (chronic diabetic foot wounds) Skin: No lesions, No rash Psychiatric/Neurological: Denies Headache, Denies Numbness, Denies Tingling Physical Exam Physical Exam Vital Signs Vital Signs - First Documented 06/11/17 06/11/17 06/11/17 16:55 19:40 21:50 Temp 97.4 Pulse 95 Resp 18 B/P (MAP) 142/77 (98) Pulse Ox 98 O2 Delivery Room Air O2 Flow Rate 2.00 FiO2 21 Capillary Refill : Less Than 3 SecondsLess Than 3 Seconds General Appearance: No Apparent Distress, WD/WN HEENT: PERRL/EOMI, Moist Mucous Membranes Neck: Non Tender, Supple, No JVD Respiratory: Lungs Clear, No Accessory Muscle Use, No Respiratory Distress Cardiovascular: Regular Rate, Rhythm, No Murmur Gastrointestinal: Normal Bowel Sounds, Non Tender, Soft Extremity: Non Tender, No Calf Tenderness, Swelling, Other (left foot s/p amputation of toes wrapped in dressing by Dr Otto, right foot s/p TMA) Neurologic/Psychiatric: Alert, Oriented x3, Normal Mood/Affect Skin: Normal Color, Warm/Dry Results Results/Procedures Labs Laboratory Tests 06/11/17 17:10 06/12/17 05:05 Patient resulted labs reviewed. Imaging: Reviewed Imaging Films Imaging Date of Exam: 06/11/17 CHEST 1 VIEW, AP/PA ONLY INDICATION: Chest tightness. TIME OF EXAM: 05:26 p.m. Correlation is made with prior study from 05/01/2017. FINDINGS: Changes of median sternotomy are noted. Right chest wall port has tip overlying the SVC. Patient has developed some infiltrate in both bases, partially obscuring the diaphragms. The mid and upper lung bean are clear. No pneumothorax is seen. IMPRESSION: Development of bibasilar pulmonary infiltrate suggestive of pneumonia. Assessment/Plan Admission Diagnosis CHF Exacerbation, Pneumonia Admission Status: Inpatient Order (span 2 midnights) Reason for Inpatient Admission: necessitates IV abx and lasix and work up for new onset heart failure Diagnosis/Problems Diagnosis/Problems (1) Acute heart failure Status: Acute Assessment & Plan: No known diagnosis but clinically appears to have acutely decompensated heart failure BNP >8000 on arrival Cardiology consulted, appreciate recs Continue Lasix Monitor renal function closely Watch I/Os Watch UOP Qualifiers: Heart failure type: unspecified Qualified Codes: I50.9 - Heart failure, unspecified (2) Bilateral pneumonia Status: Acute Assessment & Plan: Does not meet sepsis criteria Continue CAP coverage with Rocephin and Azithromycin Blood and sputum cultures pending from ER Qualifiers: Pneumonia type: due to unspecified organism Lung location: lower lobe of lung Qualified Codes: J18.9 - Pneumonia, unspecified organism (3) Essential (primary) hypertension Status: Chronic Assessment & Plan: Continue Imdur (4) Insulin dependent diabetes mellitus Assessment & Plan: Non complaints with levemir on home meds but takes his prandial insulin Fasting BS was 93 this AM so will hold levemir and continue prandial insulin SSI (5) CKD (chronic kidney disease) stage 3, GFR 30-59 ml/min Assessment & Plan: Has baseline around 2 Near baseline Monitor closely with diuresis (6) Anemia in chronic kidney disease Assessment & Plan: Trend labs No signs of active bleeding Qualifiers: Chronic kidney disease stage: stage 3 (moderate) Qualified Codes: N18.3 - Chronic kidney disease, stage 3 (moderate); D63.1 - Anemia in chronic kidney disease (7) Prophylactic measure Assessment & Plan: On therapeutic lovenox low Na diet Saline lock Clinical Quality Measures AMI/AHF: ASA po Prior to arrival: No DVT/VTE Risk/Contraindication: Risk Factor Score Per Nursin RFS Level Per Nursing on Admit: 4+=Very High CAITLIN BOBO MD Jun 12, 2017 1:06 pm
[2017-06-12] MEDS ORDERED: inSUlin DETERMIR 1000 UNITS/10 ML VIAL (LEVEMIR) SQ PRN (13:45)
--- NOTE | 2017-06-12 13:48 | Cardiology Progress Note ---
Cardiology SOAP Progress Note Subjective: According to the patient's shortness of breath is much better. Objective: I&O/Vital Signs Vital Sign - Last 12Hours 06/12/17 06/12/17 06/12/17 06/12/17 02:11 04:05 07:00 07:52 Temp 97.7 98.2 Pulse 75 72 74 Resp 18 22 B/P (MAP) 121/70 (87) 110/63 (79) Pulse Ox 93 96 97 O2 Delivery Room Air Room Air Room Air 06/12/17 06/12/17 06/12/17 08:00 09:01 13:00 Pulse 80 Pulse Ox 94 O2 Delivery Nasal Cannula Nasal Cannula O2 Flow Rate 2.00 2.00 Intake and Output 06/12/17 00:00 Intake Total 550 ml Output Total 500 ml Balance 50 ml Weight (Pounds): 211 Weight (Ounces): 11.2 Weight (Calculated Kilograms): 96.099288 Constitutional: AAO x 3 Respiratory: No accessory muscle use, No respiratory distress, No chest tender , No chest expansion is symmetric, chest is bilaterally symmetric, No lungs clear to percussion, lungs clear to auscultation, No crackles, No rhonchi, No rales, No stridor, No wheezing, No pleural rub, No other Cardiovascular: regular rate-rhythm, No irregularly irregular, No extra beats, No parasternal heave is noted, No JVD, No edema, No bradycardia, No tachycardia , No point of maximal impulse, No cardiac thrills are palpable, S1 and S2, No gallop/S3, No gallop/S4, No diastolic murmur, No systolic murmur, No friction rub, No click, No other Gastrointestional: No tender, No soft, No round, No distended, No pulsatile mass, No organomegaly, No guarding, No rebound, No tenderness, No hernia, No mass, No audible bowel sounds, No abnormal bowel sounds, No abdominal bruits, No spleenomegaly, No other Extremities: No normal range of motion, No non-tender, No normal inspection, No pedal edema, No calf tenderness, No normal capillary refill, No pelvis stable , No calf tenderness, No inflammation, No pedal edema, No slow capillary refill , No swelling, No other, No abrasion, No clubbing, No cyanosis, No ecchymosis, No laceration, No no lower extremity edema bilateral, No significant edema, No tenderness, No wound Neurologic/Psychiatric: alert, normal mood/affect, oriented x 3 Skin: No normal color, No warm/dry, No cyanosis, No cool, No diaphoresis, No damp, No ecchymosis, No jaundice, No mottled, No pallor, No rash, No tattoos/ piercings, No ulcerations, No rash on exposed areas, No ulcerations on exposed areas, No other Results/Procedures: Labs Laboratory Tests 06/11/17 17:10: White Blood Count 7.3, Red Blood Count 3.49L, Hemoglobin 10.8L, Hematocrit 34L, Mean Corpuscular Volume 97, Mean Corpuscular Hemoglobin 31, Mean Corpuscular Hemoglobin Concent 32, Red Cell Distribution Width 20.2H, Platelet Count 141, Mean Platelet Volume 12.8H, Neutrophils (%) (Auto) 79H, Lymphocytes (%) (Auto) 13, Monocytes (%) (Auto) 6, Eosinophils (%) (Auto) 2, Basophils (%) (Auto) 1, Neutrophils # (Auto) 5.8, Lymphocytes # (Auto) 1.0, Monocytes # (Auto) 0.4, Eosinophils # (Auto) 0.2, Basophils # (Auto) 0.1, Sodium Level 140, Potassium Level 4.4, Chloride Level 112H, Carbon Dioxide Level 18L, Anion Gap 10, Blood Urea Nitrogen 23H, Creatinine 1.93H, Estimat Glomerular Filtration Rate 36, BUN/ Creatinine Ratio 12, Glucose Level 197H, Calcium Level 8.7, Magnesium Level 1.8 , Total Bilirubin 1.3H, Aspartate Amino Transf (AST/SGOT) 42H, Alanine Aminotransferase (ALT/SGPT) 43, Alkaline Phosphatase 137H, Myoglobin 142.0H, Troponin I < 0.30, B-Type Natriuretic Peptide 8415.4H, Total Protein 5.8L, Albumin 3.5, Lipase 25 06/11/17 17:40: Prothrombin Time 15.1H, INR Comment 1.2, Activated Partial Thromboplast Time 30 06/11/17 17:58: Lactic Acid Level 0.98 06/11/17 21:42: Glucometer 251H 06/11/17 22:40: Glucometer 270H 06/12/17 05:05: White Blood Count 7.6, Red Blood Count 3.23L, Hemoglobin 10.0L, Hematocrit 32L, Mean Corpuscular Volume 98, Mean Corpuscular Hemoglobin 31, Mean Corpuscular Hemoglobin Concent 32, Red Cell Distribution Width 19.9H, Platelet Count 139, Mean Platelet Volume 12.7H, Neutrophils (%) (Auto) 70, Lymphocytes (%) (Auto) 18 , Monocytes (%) (Auto) 7, Eosinophils (%) (Auto) 4, Basophils (%) (Auto) 1, Neutrophils # (Auto) 5.3, Lymphocytes # (Auto) 1.4, Monocytes # (Auto) 0.6, Eosinophils # (Auto) 0.3, Basophils # (Auto) 0.1, Sodium Level 142, Potassium Level 4.2, Chloride Level 112H, Carbon Dioxide Level 19L, Anion Gap 11, Blood Urea Nitrogen 25H, Creatinine 2.11H, Estimat Glomerular Filtration Rate 33, BUN/ Creatinine Ratio 12, Glucose Level 93, Calcium Level 8.2L, Total Bilirubin 0.9, Aspartate Amino Transf (AST/SGOT) 25, Alanine Aminotransferase (ALT/SGPT) 37, Alkaline Phosphatase 113, Troponin I < 0.30, B-Type Natriuretic Peptide 7493.5H , Total Protein 5.5L, Albumin 3.2, Triglycerides Level 75, Cholesterol Level 95 , LDL Cholesterol Direct 49, VLDL Cholesterol 15, HDL Cholesterol 32L 06/12/17 13:05: Glucometer 203H A/P: Assessment/Dx: Shortness of breath Pneumonia Congestive heart failure Coronary artery disease Chest pain Plan: Dyspnea, pulmonary edema and pulmonary infiltrates, patient was admitted to telemetry, started on IV antibiotic and diuretics. Continue to monitor response. Blood cultures were done. Monitor kidney functions. Significantly elevated BNP. Acute on chronic diastolic heart failure. Will recommend increasing the dose of Lasix to at least 80 twice a day to achieve negative input/output. Generalized fatigue and loss of energy, started on empiric antibiotics. Managed by primary care physician. Continue to monitor Chest pain, tightness and discomfort, extensive coronary artery disease as described below. Negative serial troponin. Acute coronary syndrome has been ruled out. Will avoid coronary angiography due to significant renal dysfunction. Coronary artery disease, history of CABG 4 in 2008 with cardiac catheterization June 02, [address] Arvizu revealing severe three-vessel lummi coronary artery disease with non-bypassed RCA, patent OSBORNE to LAD, patent vein graft to first diag, patent vein graft to first OM. There was occluded jump graft to the second obtuse marginal branch with successful PCI using bare-metal vision stent 3.0 x 28 mm to the second OM. At that time was reported patient staged intervention to the right and third OM branch after gallbladder removal by Dr. Arvizu, had stress test done at [facility] within then and no further intervention was made. Patient was to be scheduled for [facility] with intervention after healing of Left foot ulcer, however, patient did not follow up, Cardiac catheterization was carried out by Dr. Busch in January 2015 and reported as patent OSBORNE to the LAD vein graft to the diagonal artery and vein graft to the obtuse marginal artery, small vessel disease distally, the right coronary artery has severe diffuse disease, Dr. Busch felt that it is high risk for intervention at this time, medical therapy is recommended. Patient will require significant amount of stenting with limited benefit. I will reevaluate the need for cardiac catheterization Congestive heart failure, last echocardiogram showed ejection fraction 50-55 percent. Significant elevation in BNP level, probably ischemic cardiomyopathy, reevaluate 2-D echocardiogram. Pending echocardiogram. Significant peripheral arterial disease, multiple intervention by Dr. Beebe in the past. Extensive workup in the past, last angiogram was done on May 30, 2016 which showed on the right side subtotal occlusion of the anterior tibial artery, severe disease at the posterior tibial and peroneal artery and distal popliteal artery successful balloon angioplasty to the anterior tibial artery using 2.0 then 3.0 balloon with excellent results, balloon angioplasty to the popliteal artery using Lutonix 4.018 mm with excellent results. Patient has stent extending throughout the left SFA down to the popliteal and common femoral artery, good flow, at the trifurcation there is occlusion of stents in the anterior tibial artery, the posterior tibial artery and peroneal arteries were occluded. Underwent repeat angiogram in April 2017 which showed: 1. Total occlusion of the left anterior tibial artery, complex intervention using multiple wires and balloons with reestablishment of the flow down to the foot 2. Mild to moderate disease it the distal common femoral artery beyond the stent. Nonobstructive disease 3. Slow flow on the right lower chin to down to the trifurcation Fractured port s/p angio with retrieval of fractured lead. Doing well at this time. Hypertension, I will restart home medication monitor blood pressure Hyperlipidemia, continue to monitor. Diabetes mellitus, followed and monitored by primary care physician. Chronic renal insufficiency, continue to monitor renal function while on diuretics. Nephrology referral as an outpatient. Tobaccoism, occasional smoking, educated on avoiding any tobacco product. Mild bilateral nonobstructive carotid artery stenosis, last carotid ultrasound was done June 26, 2016, continue to monitor. History of Noncompliance with medications, educated about compliance with medication. Thank you for your consultation. Please call me if you have any questions. Jeremy Zaragoza MD, FACP, FACC, FSCAI, FHRS, CCDS Interventional Cardiology Cardiac Electrophysiology Vascular Medicine and Endovascular Interventions Focused Exam Evaluation Lactate Level Laboratory Tests 06/11/17 17:58: Lactic Acid Level 0.98 Clinical Quality Measures AMI/AHF: ASA po Prior to arrival: Jesus Gotti MD Jun 12, 2017 13:48
[2017-06-12] MEDS: inSUlin ASPART (NovoLOG) 1 UNIT/0.01 ML (CHARGE PER UNIT) SC SCH ×2 (16:02→20:58)
[2017-06-12] MEDS: inSUlin ASPART (NovoLOG) 1 UNIT/0.01 ML (CHARGE PER UNIT) SQ SCH (16:46)
[2017-06-12] MEDS: FUROSEMIDE 40 MG/4 ML INJ (LASIX) IVP SCH (16:46)
[2017-06-12] MEDS: cefTRIAXone 1 GM/NS 100 ML IVPB IV SCH ×2 (18:24)
[2017-06-12] MEDS: AZITHROMYCIN 250 MG TAB (ZITHROMAX) PO SCH (18:24)
[2017-06-12] MEDS: SIMvastatin 10 MG (ZOCOR) TAB PO SCH (19:47)
[2017-06-13] MEDS: RT-ALBUTEROL/IPRATROPIUM 3 ML (DUONEB) VIAL INH SCH ×4 (02:44→20:42)
[2017-06-13 04:00] VITALS: BP 123/73
[2017-06-13 05:48] LABS: BASOPHILS % (AUTO) 1 % (0-10); EOSINOPHILS # (AUTO) 0.4 10^3/uL (0.0-0.3); EOSINOPHILS % (AUTO) 5 % (0-10); HEMATOCRIT 31 % (40-54); LYMPHOCYTES # (AUTO) 1.7 X 10^3 (1.0-4.0); LYMPHOCYTES % (AUTO) 25 % (12-44); MEAN CORPUSCULAR HEMOGLOBIN 31 PG (25-34); MEAN CORPUSCULAR HGB CONC 32 G/DL (32-36); MEAN CORPUSCULAR VOLUME 96 FL (80-99); MEAN PLATELET VOLUME 12.2 FL (7.4-10.4); MONOCYTES # (AUTO) 0.6 X 10^3 (0.0-1.0); MONOCYTES % (AUTO) 9 % (0-12); NEUTROPHILS # (AUTO) 4.1 X 10^3 (1.8-7.8); NEUTROPHILS % (AUTO) 60 % (42-75); PLATELET COUNT 131 10^3/uL (130-400); RED BLOOD COUNT 3.24 10^6/uL (4.35-5.85); RED CELL DISTRIBUTION WIDTH 19.5 % (10.0-14.5); WHITE BLOOD COUNT 6.9 10^3/uL (4.3-11.0)
[2017-06-13] MEDS: inSUlin ASPART (NovoLOG) 1 UNIT/0.01 ML (CHARGE PER UNIT) SC SCH ×4 (06:03→20:09)
[2017-06-13 06:04] LABS: CALCIUM 8.2 MG/DL (8.5-10.1); CREATININE SERUM 2.49 MG/DL (0.60-1.30)
[2017-06-13] MEDS: FUROSEMIDE 40 MG/4 ML INJ (LASIX) IVP SCH ×2 (06:15→16:01)
[2017-06-13] MEDS: inSUlin ASPART (NovoLOG) 1 UNIT/0.01 ML (CHARGE PER UNIT) SQ SCH ×3 (06:41→16:02)
[2017-06-13 08:00] VITALS: BP 131/72
[2017-06-13] MEDS: LEVOTHYROXINE 100 MCG (LEVOTHROID) TAB PO SCH (08:29)
[2017-06-13] MEDS: ISOSORBIDE MONONITRATE 30 MG (IMDUR) TAB PO SCH (08:29)
[2017-06-13] MEDS: CLOPIDOGREL 75 MG (PLAVIX) TABLET PO SCH (08:29)
[2017-06-13] MEDS: ASPIRIN E.C. 81 MG (ECOTRIN) TAB PO SCH (08:29)
[2017-06-13] MEDS: ENOXAPARIN 80 MG/0.8 ML (LOVENOX) SYR SC SCH (08:29)
[2017-06-13] MEDS ORDERED: ASPIRIN E.C. 81 MG (ECOTRIN) TAB PO SCH (09:00)
[2017-06-13] MEDS ORDERED: CLOPIDOGREL 75 MG (PLAVIX) TABLET PO SCH (09:00)
[2017-06-13 12:16] VITALS: BP 130/69
[2017-06-13 15:41] VITALS: BP 131/71
--- NOTE | 2017-06-13 15:51 | Cardiology Progress Note ---
Cardiology SOAP Progress Note Subjective: According to the patient and he has improved shortness of breath. Objective: I&O/Vital Signs Vital Sign - Last 12Hours 06/13/17 06/13/17 06/13/17 06/13/17 04:00 07:00 07:47 08:00 Temp 97.2 97.8 Pulse 79 92 74 Resp 20 20 B/P (MAP) 123/73 (90) 131/72 (91) Pulse Ox 96 97 O2 Delivery Room Air Nasal Cannula Room Air O2 Flow Rate 2.00 06/13/17 06/13/17 06/13/17 06/13/17 09:49 12:16 13:00 15:22 Temp 97.0 Pulse 83 79 Resp 22 B/P (MAP) 130/69 (89) Pulse Ox 94 98 98 O2 Delivery Room Air Room Air O2 Flow Rate 2.00 06/13/17 15:41 Temp 97.1 Pulse 85 Resp 23 B/P (MAP) 131/71 (91) Pulse Ox 96 O2 Delivery Room Air Intake and Output 06/13/17 00:00 Intake Total 1940 ml Output Total 1875 ml Balance 65 ml Weight (Pounds): 220 Weight (Ounces): 6.0 Weight (Calculated Kilograms): 99.819059 Constitutional: AAO x 3 Respiratory: No accessory muscle use, No respiratory distress, No chest tender , No chest expansion is symmetric, chest is bilaterally symmetric, No lungs clear to percussion, lungs clear to auscultation, No crackles, No rhonchi, No rales, No stridor, No wheezing, No pleural rub, No other Cardiovascular: regular rate-rhythm, No irregularly irregular, No extra beats, No parasternal heave is noted, No JVD, No edema, No bradycardia, No tachycardia , No point of maximal impulse, No cardiac thrills are palpable, S1 and S2, No gallop/S3, No gallop/S4, No diastolic murmur, No systolic murmur, No friction rub, No click, No other Gastrointestional: No tender, No soft, No round, No distended, No pulsatile mass, No organomegaly, No guarding, No rebound, No tenderness, No hernia, No mass, No audible bowel sounds, No abnormal bowel sounds, No abdominal bruits, No spleenomegaly, No other Extremities: No normal range of motion, No non-tender, No normal inspection, No pedal edema, No calf tenderness, No normal capillary refill, No pelvis stable , No calf tenderness, No inflammation, No pedal edema, No slow capillary refill , No swelling, No other, No abrasion, No clubbing, No cyanosis, No ecchymosis, No laceration, No no lower extremity edema bilateral, No significant edema, No tenderness, No wound Neurologic/Psychiatric: alert, normal mood/affect, oriented x 3 Skin: No normal color, No warm/dry, No cyanosis, No cool, No diaphoresis, No damp, No ecchymosis, No jaundice, No mottled, No pallor, No rash, No tattoos/ piercings, No ulcerations, No rash on exposed areas, No ulcerations on exposed areas, No other Results/Procedures: Labs Laboratory Tests 06/12/17 15:59: Glucometer 94 06/12/17 20:17: Glucometer 83 06/13/17 05:21: Glucometer 152H 06/13/17 05:42: White Blood Count 6.9, Red Blood Count 3.24L, Hemoglobin 10.0L, Hematocrit 31L, Mean Corpuscular Volume 96, Mean Corpuscular Hemoglobin 31, Mean Corpuscular Hemoglobin Concent 32, Red Cell Distribution Width 19.5H, Platelet Count 131, Mean Platelet Volume 12.2H, Neutrophils (%) (Auto) 60, Lymphocytes (%) (Auto) 25 , Monocytes (%) (Auto) 9, Eosinophils (%) (Auto) 5, Basophils (%) (Auto) 1, Neutrophils # (Auto) 4.1, Lymphocytes # (Auto) 1.7, Monocytes # (Auto) 0.6, Eosinophils # (Auto) 0.4H, Basophils # (Auto) 0.0, Sodium Level 139, Potassium Level 4.0, Chloride Level 108H, Carbon Dioxide Level 21, Anion Gap 10, Blood Urea Nitrogen 26H, Creatinine 2.49H, Estimat Glomerular Filtration Rate 27, BUN/ Creatinine Ratio 10, Glucose Level 136H, Calcium Level 8.2L 06/13/17 10:11: Glucometer 60*L 06/13/17 11:33: Glucometer 121H Microbiology 06/11/17 Blood Culture - Preliminary, Resulted No growth 06/12/17 Gram Stain - Final, Resulted 06/12/17 Sputum Culture - Preliminary, Resulted Gram Negative Aron Yeast species A/P: Assessment/Dx: Shortness of breath Pneumonia Congestive heart failure Coronary artery disease Chest pain Plan: Dyspnea, pulmonary edema and pulmonary infiltrates, patient was admitted to telemetry, started on IV antibiotic and diuretics. Continue to monitor response. Blood cultures were done. Monitor kidney functions. Significantly elevated BNP. Acute on chronic diastolic heart failure. Will recommend increasing the dose of Lasix to at least 80 twice a day to achieve negative input/output. Generalized fatigue and loss of energy, started on empiric antibiotics. Managed by primary care physician. Continue to monitor Chest pain, tightness and discomfort, extensive coronary artery disease as described below. Negative serial troponin. Acute coronary syndrome has been ruled out. Coronary artery disease, history of CABG 4 in 2008 with cardiac catheterization June 02, [address] Arvizu revealing severe three-vessel [place] coronary artery disease with non-bypassed RCA, patent OSBORNE to LAD, patent vein graft to first diag, patent vein graft to first OM. There was occluded jump graft to the second obtuse marginal branch with successful PCI using bare-metal vision stent 3.0 x 28 mm to the second OM. At that time was reported patient staged intervention to the right and third OM branch after gallbladder removal by Dr. Arvizu, had stress test done at within then and no further intervention was made. Patient was to be scheduled for [facility] with intervention after healing of Left foot ulcer, however, patient did not follow up, Cardiac catheterization was carried out by Dr. Busch in January 2015 and reported as patent OSBORNE to the LAD vein graft to the diagonal artery and vein graft to the obtuse marginal artery, small vessel disease distally, the right coronary artery has severe diffuse disease, Dr. Busch felt that it is high risk for intervention at this time, medical therapy is recommended. Patient will require significant amount of stenting with limited benefit. I will reevaluate the need for cardiac catheterization Congestive heart failure, last echocardiogram showed ejection fraction 50-55 percent. Significant elevation in BNP level, probably ischemic cardiomyopathy, reevaluate 2-D echocardiogram. Echocardiogram shows new onset significant systolic dysfunction. Significant peripheral arterial disease, multiple intervention by Dr. Beebe in the past. Extensive workup in the past, last angiogram was done on May 30, 2016 which showed on the right side subtotal occlusion of the anterior tibial artery, severe disease at the posterior tibial and peroneal artery and distal popliteal artery successful balloon angioplasty to the anterior tibial artery using 2.0 then 3.0 balloon with excellent results, balloon angioplasty to the popliteal artery using Lutonix 4.018 mm with excellent results. Patient has stent extending throughout the left SFA down to the popliteal and common femoral artery, good flow, at the trifurcation there is occlusion of stents in the anterior tibial artery, the posterior tibial artery and peroneal arteries were occluded. Underwent repeat angiogram in April 2017 which showed: 1. Total occlusion of the left anterior tibial artery, complex intervention using multiple wires and balloons with reestablishment of the flow down to the foot 2. Mild to moderate disease it the distal common femoral artery beyond the stent. Nonobstructive disease 3. Slow flow on the right lower chin to down to the trifurcation Fractured port s/p angio with retrieval of fractured lead. Doing well at this time. Hypertension, I will restart home medication monitor blood pressure Hyperlipidemia, continue to monitor. Diabetes mellitus, followed and monitored by primary care physician. Chronic renal insufficiency, continue to monitor renal function while on diuretics. Nephrology referral as an outpatient. Tobaccoism, occasional smoking, educated on avoiding any tobacco product. Mild bilateral nonobstructive carotid artery stenosis, last carotid ultrasound was done June 26, 2016, continue to monitor. History of Noncompliance with medications, educated about compliance with medication. Thank you for your consultation. Please call me if you have any questions. Jeremy Zaragoza MD, FACP, FACC, FSCAI, FHRS, CCDS Interventional Cardiology Cardiac Electrophysiology Vascular Medicine and Endovascular Interventions Focused Exam Evaluation Lactate Level Laboratory Tests 06/11/17 17:58: Lactic Acid Level 0.98 Clinical Quality Measures AMI/AHF: ASA po Prior to arrival: Jesus Gotti MD Jun 13, 2017 3:51 pm
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
[2017-06-13] MEDS ORDERED: ENOXAPARIN 40 MG/0.4 ML (LOVENOX) SYR SC SCH (16:15)
[2017-06-13] MEDS: AZITHROMYCIN 250 MG TAB (ZITHROMAX) PO SCH (18:12)
[2017-06-13] MEDS: cefTRIAXone 1 GM/NS 100 ML IVPB IV SCH ×2 (18:12)
[2017-06-13 20:04] VITALS: BP 130/75
[2017-06-13] MEDS: SIMvastatin 10 MG (ZOCOR) TAB PO SCH (21:45)
[2017-06-13] MEDS: PROMETHAZINE/ CODEINE SYRUP 5 ML UDC PO PRN (21:52)
[2017-06-14] VITALS: BP 123/94
[2017-06-14] MEDS: RT-ALBUTEROL/IPRATROPIUM 3 ML (DUONEB) VIAL INH SCH ×2 (03:04→09:22)
[2017-06-14 04:00] VITALS: BP 136/75
[2017-06-14] MEDS: inSUlin ASPART (NovoLOG) 1 UNIT/0.01 ML (CHARGE PER UNIT) SC SCH ×2 (05:38→11:17)
[2017-06-14 06:12] LABS: BASOPHILS % (AUTO) 1 % (0-10); EOSINOPHILS # (AUTO) 0.3 10^3/uL (0.0-0.3); EOSINOPHILS % (AUTO) 5 % (0-10); HEMATOCRIT 32 % (40-54); HEMOGLOBIN 10.3 G/DL (13.3-17.7); LYMPHOCYTES # (AUTO) 1.1 X 10^3 (1.0-4.0); LYMPHOCYTES % (AUTO) 18 % (12-44); MEAN CORPUSCULAR HEMOGLOBIN 31 PG (25-34); MEAN CORPUSCULAR HGB CONC 32 G/DL (32-36); MEAN CORPUSCULAR VOLUME 95 FL (80-99); MEAN PLATELET VOLUME 12.9 FL (7.4-10.4); MONOCYTES # (AUTO) 0.6 X 10^3 (0.0-1.0); MONOCYTES % (AUTO) 9 % (0-12); NEUTROPHILS # (AUTO) 4.3 X 10^3 (1.8-7.8); NEUTROPHILS % (AUTO) 68 % (42-75); PLATELET COUNT 122 10^3/uL (130-400); RED BLOOD COUNT 3.36 10^6/uL (4.35-5.85); RED CELL DISTRIBUTION WIDTH 19.2 % (10.0-14.5); WHITE BLOOD COUNT 6.4 10^3/uL (4.3-11.0)
[2017-06-14 06:28] LABS: CALCIUM 8.5 MG/DL (8.5-10.1); CREATININE SERUM 2.37 MG/DL (0.60-1.30)
[2017-06-14] MEDS: LEVOTHYROXINE 100 MCG (LEVOTHROID) TAB PO SCH (06:34)
[2017-06-14] MEDS: FUROSEMIDE 40 MG/4 ML INJ (LASIX) IVP SCH (06:34)
[2017-06-14 08:00] VITALS: BP 132/76
[2017-06-14] MEDS ORDERED: ENOXAPARIN 40 MG/0.4 ML (LOVENOX) SYR SC SCH (08:00)
[2017-06-14] MEDS: ASPIRIN E.C. 81 MG (ECOTRIN) TAB PO SCH (08:50)
[2017-06-14] MEDS: ISOSORBIDE MONONITRATE 30 MG (IMDUR) TAB PO SCH (08:50)
[2017-06-14] MEDS: CLOPIDOGREL 75 MG (PLAVIX) TABLET PO SCH (08:50)
[2017-06-14 09:22] VITALS: BP 132/76
[2017-06-14] MEDS: inSUlin ASPART (NovoLOG) 1 UNIT/0.01 ML (CHARGE PER UNIT) SQ SCH ×2 (10:18→11:17)
--- NOTE | 2017-06-14 10:18 | Cardiology Progress Note ---
Cardiology SOAP Progress Note Subjective: According to the patient his shortness of breath is better. He denies having any chest pain. Objective: I&O/Vital Signs Vital Sign - Last 12Hours 06/14/17 06/14/17 06/14/17 06/14/17 01:00 04:00 08:00 08:46 Temp 96.7 97.7 Pulse 87 83 85 Resp 19 18 B/P (MAP) 136/75 (95) 132/76 (94) Pulse Ox 96 96 O2 Delivery Room Air Room Air Room Air 06/14/17 06/14/17 09:22 09:22 Pulse 85 Pulse Ox 95 95 O2 Delivery Room Air Intake and Output 06/14/17 00:00 Intake Total 1335 ml Output Total 3800 ml Balance -2465 ml Weight (Pounds): 210 Weight (Ounces): 5.0 Weight (Calculated Kilograms): 95.195461 Constitutional: AAO x 3 Respiratory: No accessory muscle use, No respiratory distress, No chest tender , No chest expansion is symmetric, chest is bilaterally symmetric, No lungs clear to percussion, lungs clear to auscultation, No crackles, No rhonchi, No rales, No stridor, No wheezing, No pleural rub, No other Cardiovascular: regular rate-rhythm, No irregularly irregular, No extra beats, No parasternal heave is noted, No JVD, No edema, No bradycardia, No tachycardia , No point of maximal impulse, No cardiac thrills are palpable, S1 and S2, No gallop/S3, No gallop/S4, No diastolic murmur, No systolic murmur, No friction rub, No click, No other Gastrointestional: No tender, No soft, No round, No distended, No pulsatile mass, No organomegaly, No guarding, No rebound, No tenderness, No hernia, No mass, No audible bowel sounds, No abnormal bowel sounds, No abdominal bruits, No spleenomegaly, No other Extremities: No normal range of motion, No non-tender, No normal inspection, No pedal edema, No calf tenderness, No normal capillary refill, No pelvis stable , No calf tenderness, No inflammation, No pedal edema, No slow capillary refill , No swelling, No other, No abrasion, No clubbing, No cyanosis, No ecchymosis, No laceration, No no lower extremity edema bilateral, No significant edema, No tenderness, No wound Neurologic/Psychiatric: alert, normal mood/affect, oriented x 3 Skin: No normal color, No warm/dry, No cyanosis, No cool, No diaphoresis, No damp, No ecchymosis, No jaundice, No mottled, No pallor, No rash, No tattoos/ piercings, No ulcerations, No rash on exposed areas, No ulcerations on exposed areas, No other Results/Procedures: Labs Laboratory Tests 06/13/17 15:47: Glucometer 229H 06/13/17 20:07: Glucometer 67L 06/14/17 00:20: Glucometer 220H 06/14/17 05:30: White Blood Count 6.4, Red Blood Count 3.36L, Hemoglobin 10.3L, Hematocrit 32L, Mean Corpuscular Volume 95, Mean Corpuscular Hemoglobin 31, Mean Corpuscular Hemoglobin Concent 32, Red Cell Distribution Width 19.2H, Platelet Count 122L, Mean Platelet Volume 12.9H, Neutrophils (%) (Auto) 68, Lymphocytes (%) (Auto) 18 , Monocytes (%) (Auto) 9, Eosinophils (%) (Auto) 5, Basophils (%) (Auto) 1, Neutrophils # (Auto) 4.3, Lymphocytes # (Auto) 1.1, Monocytes # (Auto) 0.6, Eosinophils # (Auto) 0.3, Basophils # (Auto) 0.0, Sodium Level 142, Potassium Level 4.0, Chloride Level 107, Carbon Dioxide Level 23, Anion Gap 12, Blood Urea Nitrogen 28H, Creatinine 2.37H, Estimat Glomerular Filtration Rate 28, BUN/ Creatinine Ratio 12, Glucose Level 177H, Calcium Level 8.5 06/14/17 05:37: Glucometer 162H 06/14/17 10:56: Glucometer 165H Microbiology 06/11/17 Blood Culture - Preliminary, Resulted No growth 06/12/17 Gram Stain - Final, Complete 06/12/17 Sputum Culture - Final, Complete Klebsiella oxytoca Pseudomonas aeruginosa Yeast species A/P: Assessment/Dx: Shortness of breath Pneumonia Acute systolic Congestive heart failure Coronary artery disease Chest pain Plan: Dyspnea, pulmonary edema and pulmonary infiltrates, patient was admitted to telemetry, started on IV antibiotic and diuretics. Continue to monitor response. Blood cultures were done. Monitor kidney functions. Significantly elevated BNP. Acute on chronic diastolic heart failure. Will recommend increasing the dose of Lasix to at least 80 twice a day to achieve negative input/output. Generalized fatigue and loss of energy, started on empiric antibiotics. Managed by primary care physician. Continue to monitor Chest pain, tightness and discomfort, extensive coronary artery disease as described below. Negative serial troponin. Acute coronary syndrome has been ruled out. Coronary artery disease, history of CABG 4 in 2008 with cardiac catheterization June 02, [address] Arvizu revealing severe three-vessel [place] coronary artery disease with non-bypassed RCA, patent OSBORNE to LAD, patent vein graft to first diag, patent vein graft to first OM. There was occluded jump graft to the second obtuse marginal branch with successful PCI using bare-metal vision stent 3.0 x 28 mm to the second OM. At that time was reported patient staged intervention to the right and third OM branch after gallbladder removal by Dr. Arvizu, had stress test done at [facility] within then and no further intervention was made. Patient was to be scheduled for [facility] with intervention after healing of Left foot ulcer, however, patient did not follow up, Cardiac catheterization was carried out by Dr. Busch in January 2015 and reported as patent OSBORNE to the LAD vein graft to the diagonal artery and vein graft to the obtuse marginal artery, small vessel disease distally, the right coronary artery has severe diffuse disease, Dr. Busch felt that it is high risk for intervention at this time, medical therapy is recommended. Patient will require significant amount of stenting with limited benefit. I will reevaluate the need for cardiac catheterization Congestive heart failure, last echocardiogram showed ejection fraction 50-55 percent. Significant elevation in BNP level, probably ischemic cardiomyopathy, reevaluate 2-D echocardiogram. Echocardiogram shows new onset significant systolic dysfunction. I discussed at length with the patient about risk of sudden cardiac and recommended a LifeVest. He would also need coronary angiography. Dr. Bobo also discussed with the patient but the patient refused to stay in the hospital any further and will sign out AMA. Significant peripheral arterial disease, multiple intervention by Dr. Beebe in the past. Extensive workup in the past, last angiogram was done on May 30, 2016 which showed on the right side subtotal occlusion of the anterior tibial artery, severe disease at the posterior tibial and peroneal artery and distal popliteal artery successful balloon angioplasty to the anterior tibial artery using 2.0 then 3.0 balloon with excellent results, balloon angioplasty to the popliteal artery using Lutonix 4.018 mm with excellent results. Patient has stent extending throughout the left SFA down to the popliteal and common femoral artery, good flow, at the trifurcation there is occlusion of stents in the anterior tibial artery, the posterior tibial artery and peroneal arteries were occluded. Underwent repeat angiogram in April 2017 which showed: 1. Total occlusion of the left anterior tibial artery, complex intervention using multiple wires and balloons with reestablishment of the flow down to the foot 2. Mild to moderate disease it the distal common femoral artery beyond the stent. Nonobstructive disease 3. Slow flow on the right lower chin to down to the trifurcation Fractured port s/p angio with retrieval of fractured lead. Doing well at this time. Hypertension, I will restart home medication monitor blood pressure Hyperlipidemia, continue to monitor. Diabetes mellitus, followed and monitored by primary care physician. Chronic renal insufficiency, continue to monitor renal function while on diuretics. Nephrology referral as an outpatient. Tobaccoism, occasional smoking, educated on avoiding any tobacco product. Mild bilateral nonobstructive carotid artery stenosis, last carotid ultrasound was done June 26, 2016, continue to monitor. History of Noncompliance with medications, educated about compliance with medication. Thank you for your consultation. Please call me if you have any questions. Jeremy Zaragoza MD, FACP, FACC, FSCAI, FHRS, CCDS Interventional Cardiology Cardiac Electrophysiology Vascular Medicine and Endovascular Interventions Focused Exam Evaluation Lactate Level Laboratory Tests 06/11/17 17:58: Lactic Acid Level 0.98 Clinical Quality Measures AMI/AHF: ASA po Prior to arrival: Jesus Gotti MD Jun 14, 2017 10:18
[2017-06-14] MEDS ORDERED: CIPR-225 PO (10:20)
[2017-06-14] MEDS ORDERED: FURO-124 PO (10:20)
[2017-06-14] MEDS ORDERED: LISI2.5T PO (10:20)
[2017-06-14] MEDS ORDERED: METO-387 PO (10:20)
--- NOTE | 2017-06-14 10:41 | Discharge Inst-Simple/Standard ---
Discharge Inst-Standard Patient Instructions/Follow Up Plan of Care/Instructions/FU: Please talk your medications as written. It is important to follow up with your PCP as scheduled on Saturday and please make an appointment with Dr Roy for Saturday as well. If your symptoms return or worsen please return to the ER for evaluation. Activity as Tolerated: Yes Discharge Diet: Low Sodium Diet, Cardiac Diet Planned Outpatient Orders/Ref. Pneu Vac Indicated: Yes CAITLIN IRIZARRY MD Jun 14, 2017 10:41 am
[2017-06-14] MEDS ORDERED: CODE118S2 PO (11:31)
--- NOTE | 2017-06-14 11:50 | Discharge Summary-Hospitalist ---
Diagnosis/Chief Complaint Date of Admission Jun 11, 2017 at 6:43 pm Date of Discharge Discharge Date: Jun 14, 2017 Discharge Time: 1200 Admission Diagnosis CHF Exacerbation, Pneumonia Discharge Diagnosis acute decompensated systolic heart failure (1) Acute heart failure Status: Acute Assessment & Plan: Echo shows EF of 25% Cardiology consulted, appreciate recs Watch I/Os- neg over 2.5L yesterday Fluid restriction ordered Will need cath eventually but currently precluded by CKD Will start on BB, ISHMAEL, and continue oral lasix Recommended staying in hospital to be assessed for a LifeVest but he refused Discussed the risk of fatal arrhythmia without Lifevest but he declined As not willing to stay any further he agreed to sign out AMA (2) CKD (chronic kidney disease) stage 3, GFR 30-59 ml/min Assessment & Plan: Has baseline around 2-2.5 Monitor closely with diuresis- bumped some today (3) Bilateral pneumonia Status: Acute Assessment & Plan: Does not meet sepsis criteria Continue CAP coverage with Rocephin and Azithromycin Blood cultures show no growth Sputum shows GNR- ID pending (4) Essential (primary) hypertension Status: Chronic Assessment & Plan: Continue Imdur (5) Insulin dependent diabetes mellitus Assessment & Plan: Non complaints with levemir on home meds but takes his prandial insulin Fasting BS was 93 this AM so will hold levemir and continue prandial insulin SSI (6) Anemia in chronic kidney disease Assessment & Plan: Trend labs No signs of active bleeding (7) Prophylactic measure Assessment & Plan: Lovenox low Na diet with fluid restriction Saline lock Discharge Summary Procedures/Consulations Dr Zaragoza Discharge Physical Exam Allergies: Coded Allergies: oxycodone HCl (Unverified Allergy, Unknown, HAS RECEIVED HYDROMORPHONE W/ O ISSUE, 05/21/14) protamine (Unverified Allergy, Unknown, 04/23/14) Vitals & I&Os Vital Signs Date Time Temp Pulse Resp B/P (MAP) Pulse Ox O2 Delivery O2 Flow Rate FiO2 06/14/17 09:22 85 95 06/14/17 09:22 Room Air 06/14/17 08:00 97.7 18 132/76 (94) 06/13/17 12:16 2.00 06/11/17 21:50 21 General Appearance: Alert, Oriented X3 Respiratory: Clear to Auscultation Cardiovascular: Regular Rate, No Murmurs Psych/Mental Status: Mental Status NL, Mood NL Hospital Course Pt is a 56yoCM who was admitted for dyspnea and found to have acutely decompensated heart failure which is new for him. He has a history of CABG and follows with Dr Roy for his heart disease. He has CKD as well and diuresis was difficult to manage given worsening renal function. He did respond to 80mg IV Lasix BID with net negative I/Os and his creatinine was trending down on discharge. He was found to have an EF of 25% which is a new development for him. On day of discharge he was requesting to DC home but was not yet medically optimized as he had not started any heart failure medicines and had just begun to diuresis. Dr Zaragoza and I both recommended being fitted for a LifeVest as well due to his severely reduced EF but he declined to stay any longer in the hospital and agreed to sign out AMA. I did call his PCP Dr Solano to inform her of the events of the hospital stay and his new diagnosis. I have placed him on an ISHMAEL, BB, and lasix and he agrees to follow up with Dr. Solano on 06/17 at 4pm. He agreed to take his medications for his heart failure. He was also found to have a pneumonia on arrival and he will be discharge on Cipro in concordance with his sputum cultures. Labs (last 24 hrs) Laboratory Tests 06/13/17 15:47: Glucometer 229H 06/13/17 20:07: Glucometer 67L 06/14/17 00:20: Glucometer 220H 06/14/17 05:30: White Blood Count 6.4, Red Blood Count 3.36L, Hemoglobin 10.3L, Hematocrit 32L, Mean Corpuscular Volume 95, Mean Corpuscular Hemoglobin 31, Mean Corpuscular Hemoglobin Concent 32, Red Cell Distribution Width 19.2H, Platelet Count 122L, Mean Platelet Volume 12.9H, Neutrophils (%) (Auto) 68, Lymphocytes (%) (Auto) 18 , Monocytes (%) (Auto) 9, Eosinophils (%) (Auto) 5, Basophils (%) (Auto) 1, Neutrophils # (Auto) 4.3, Lymphocytes # (Auto) 1.1, Monocytes # (Auto) 0.6, Eosinophils # (Auto) 0.3, Basophils # (Auto) 0.0, Sodium Level 142, Potassium Level 4.0, Chloride Level 107, Carbon Dioxide Level 23, Anion Gap 12, Blood Urea Nitrogen 28H, Creatinine 2.37H, Estimat Glomerular Filtration Rate 28, BUN/ Creatinine Ratio 12, Glucose Level 177H, Calcium Level 8.5 06/14/17 05:37: Glucometer 162H 06/14/17 10:56: Glucometer 165H Microbiology 06/11/17 Blood Culture - Preliminary, Resulted No growth 06/12/17 Gram Stain - Final, Complete 06/12/17 Sputum Culture - Final, Complete Klebsiella oxytoca Pseudomonas aeruginosa Yeast species Patient resulted labs reviewed. Pending Labs Laboratory Tests 06/14/17 05:30: White Blood Count 6.4, Red Blood Count 3.36, Hemoglobin 10.3, Hematocrit 32, Mean Corpuscular Volume 95, Mean Corpuscular Hemoglobin 31, Mean Corpuscular Hemoglobin Concent 32, Red Cell Distribution Width 19.2, Platelet Count 122, Mean Platelet Volume 12.9, Neutrophils (%) (Auto) 68, Lymphocytes (%) (Auto) 18 , Monocytes (%) (Auto) 9, Eosinophils (%) (Auto) 5, Basophils (%) (Auto) 1, Neutrophils # (Auto) 4.3, Lymphocytes # (Auto) 1.1, Monocytes # (Auto) 0.6, Eosinophils # (Auto) 0.3, Basophils # (Auto) 0.0, Sodium Level 142, Potassium Level 4.0, Chloride Level 107, Carbon Dioxide Level 23, Anion Gap 12, Blood Urea Nitrogen 28, Creatinine 2.37, Estimat Glomerular Filtration Rate 28, BUN/ Creatinine Ratio 12, Glucose Level 177, Calcium Level 8.5 06/14/17 05:37: Glucometer 162 06/14/17 10:56: Glucometer 165 Discussion & Recommendations Discharge Planning: >30 minutes discharge planning I discussed the risks of discharging before medical optimization including and debility of which he verbalized understanding. Discharge Home Medications: Active Scripts Active Promethazine-Codeine Syrup (Promethazine HCl/Codeine) 118 Ml Syrup 10 Ml PO Q4H PRN Cipro (Ciprofloxacin HCl) 500 Mg Tablet 500 Mg PO BID Lasix (Furosemide) 40 Mg Tablet 40 Mg PO BID Metoprolol Succinate 25 Mg Tab.er.24h 25 Mg PO DAILY Lisinopril 2.5 Mg Tablet 2.5 Mg PO DAILY Reported Levemir (Insulin Determir) 1,000 Units/10 Ml Soln 15 Units SQ HS PRN Hydrocodon-Acetaminophn 10-325 (Hydrocodone/Acetaminophen) 1 Each Tablet 1 Tab PO Q4H PRN Novolog Flexpen (Insulin Aspart) 300 Units/3 Ml Solution 20-24 Units SQ AC Levothyroxine Sodium 200 Mcg Tablet 200 Mcg PO DAILY Nitroglycerin 0.4 Mg Tab.subl 0.4 Mg SL UD PRN Clopidogrel (Clopidogrel Bisulfate) 75 Mg Tablet 75 Mg PO DAILY Fish Oil 1,000 mg Capsule ([place] 3 Polyunsat Fatty Acids) 1,000 Mg Cap 1,000 Mg PO DAILY Aspirin EC (Aspirin) 81 Mg Tablet.dr 81 Mg PO DAILY Isosorbide Mononitrate ER (Isosorbide Mononitrate) 30 Mg Tab.er.24h 30 Mg PO DAILY LAST FILLED 11-23-16 #90 Lovastatin 20 Mg Tablet 20 Mg PO HS Instructions to patient/family Please see electronic discharge instructions given to patient. Clinical Quality Measures AMI/AHF: Ejection Fraction: <40 (ISHMAEL/ARB Indicated) D/C Medications Addressed: Ishmael inhibitors, Beta kathrin, Diuretic ASA po Prior to arrival: No DVT/VTE Risk/Contraindication: Risk Factor Score Per Nursin RFS Level Per Nursing on Admit: 4+=Very High Copy Copies To 1: ABIODUN SOLANO DO; JORDEN ROY MD Problem Qualifiers (1) Acute heart failure: Heart failure type: systolic Qualified Codes: I50.21 - Acute systolic ( congestive) heart failure (2) Bilateral pneumonia: Pneumonia type: due to unspecified organism Lung location: lower lobe of lung Qualified Codes: J18.9 - Pneumonia, unspecified organism (3) Anemia in chronic kidney disease: Chronic kidney disease stage: stage 3 (moderate) Qualified Codes: N18.3 - Chronic kidney disease, stage 3 (moderate); D63.1 - Anemia in chronic kidney disease CAITLIN IRIZARRY MD Jun 14, 2017 11:50 am
[2017-06-14 12:10] VITALS: BP 132/76
[2017-06-14] MEDS ORDERED: RT-ALBUTEROL/IPRATROPIUM 3 ML (DUONEB) VIAL ONE (20:18)
[2017-06-14] MEDS ORDERED: RT-ALBUTEROL/IPRATROPIUM 3 ML (DUONEB) VIAL INH SCH (21:00)
== END 2017-06-14 12:15 | disposition left against medical advice (07) | DRG 291 ==
LOC: EDUNIT# 16:51 → ER 16:53 → 4TH 18:43
PROVIDERS: ADMIT Family Medicine; ATTEND Family Medicine
DX: I13.0 Hypertensive heart and chronic kidney disease with heart failure and stage 1 through stage 4 chronic kidney disease, or unspecified chronic kidney disease (principal); I50.33 Acute on chronic diastolic (congestive) heart failure; N18.3 Chronic kidney disease, stage 3 (moderate); J18.9 Pneumonia, unspecified organism; I25.10 Atherosclerotic heart disease of native coronary artery without angina pectoris; E11.621 Type 2 diabetes mellitus with foot ulcer; L97.429 Non-pressure chronic ulcer of left heel and midfoot with unspecified severity; E11.40 Type 2 diabetes mellitus with diabetic neuropathy, unspecified; I25.5 Ischemic cardiomyopathy; E03.9 Hypothyroidism, unspecified; D63.1 Anemia in chronic kidney disease; F17.290 Nicotine dependence, other tobacco product, uncomplicated; E78.5 Hyperlipidemia, unspecified; G47.30 Sleep apnea, unspecified; K21.9 Gastro-esophageal reflux disease without esophagitis; M19.91 Primary osteoarthritis, unspecified site; M54.9 Dorsalgia, unspecified; I70.203 Unspecified atherosclerosis of native arteries of extremities, bilateral legs; I65.23 Occlusion and stenosis of bilateral carotid arteries; I25.2 Old myocardial infarction; Z95.1 Presence of aortocoronary bypass graft; Z95.5 Presence of coronary angioplasty implant and graft; Z95.820 Peripheral vascular angioplasty status with implants and grafts; Z79.4 Long term (current) use of insulin; Z89.421 Acquired absence of other right toe(s); Z89.422 Acquired absence of other left toe(s); Z91.19 Patient's noncompliance with other medical treatment and regimen; Z53.21 Procedure and treatment not carried out due to patient leaving prior to being seen by health care provider
CPT/HCPCS: 36415; 71045; 80048; 80053; 80061; 82962; 83605; 83690; 83735; 83874; 83880; 84484; 85025; 85027; 85610; 85730; 87040; 87070; 87077; 87186; 87205; 93005; 93041; 93306; 94640; 94664; 94760; 96374; 96375

== ENCOUNTER → 2017-06-20 | Outpatient (CLI) | payer MEDICARE, OTHER ==
[~2017-06-20] MED LIST changes: +CIPR-225 PO; +CODE118S2 PO; +FURO-124 PO; +LISI2.5T PO; +METO-387 PO
[2017-06-20 09:10] LABS: CALCIUM 8.8 MG/DL (8.5-10.1); CREATININE SERUM 2.1 MG/DL (0.60-1.30); POTASSIUM 3.7 MMOL/L (3.6-5.0)
== END ==
LOC: LAB 08:43
PROVIDERS: ATTEND Internal Medicine Cardiovascular Disease
DX: I10 Essential (primary) hypertension (principal); E78.5 Hyperlipidemia, unspecified; E03.9 Hypothyroidism, unspecified; I73.9 Peripheral vascular disease, unspecified; Z72.0 Tobacco use
CPT/HCPCS: 36415; 80048

== ENCOUNTER → 2017-06-20 | Outpatient (CLI) | payer MEDICARE, OTHER | LOC: WOUNDCARE 08:54 | PROVIDERS: ATTEND Internal Medicine | DX: E11.621 Type 2 diabetes mellitus with foot ulcer (principal); L97.422 Non-pressure chronic ulcer of left heel and midfoot with fat layer exposed; I50.21 Acute systolic (congestive) heart failure; N18.3 Chronic kidney disease, stage 3 (moderate) | CPT/HCPCS: 87070; 87075; 87101; 87186; 87205; 99213 ==

== ENCOUNTER → 2017-06-27 | Outpatient (CLI) | payer MEDICARE, OTHER | LOC: WOUNDCARE 08:53 | PROVIDERS: ATTEND Internal Medicine | DX: E11.621 Type 2 diabetes mellitus with foot ulcer (principal); L97.422 Non-pressure chronic ulcer of left heel and midfoot with fat layer exposed; N18.3 Chronic kidney disease, stage 3 (moderate); I50.21 Acute systolic (congestive) heart failure | CPT/HCPCS: 11042 ==

== ENCOUNTER → 2017-07-04 | Outpatient (CLI) | payer MEDICARE, OTHER | LOC: WOUNDCARE 08:56 | PROVIDERS: ATTEND Internal Medicine | DX: E11.621 Type 2 diabetes mellitus with foot ulcer (principal); L97.422 Non-pressure chronic ulcer of left heel and midfoot with fat layer exposed; N18.3 Chronic kidney disease, stage 3 (moderate); I50.21 Acute systolic (congestive) heart failure | CPT/HCPCS: 11042 ==

== ENCOUNTER → 2017-07-04 | Outpatient (CLI) | payer MEDICARE, OTHER | LOC: LAB 09:43 | PROVIDERS: ATTEND Internal Medicine | DX: E11.621 Type 2 diabetes mellitus with foot ulcer (principal); L97.422 Non-pressure chronic ulcer of left heel and midfoot with fat layer exposed | CPT/HCPCS: 36415; 83036 ==

== ENCOUNTER → 2017-07-09 | Outpatient (CLI) | payer MEDICARE, OTHER ==
[~2017-07-09] MED LIST changes: -CODE118S2 PO; +CODE118S4 PO
== END ==
LOC: WOUNDCARE 08:50
PROVIDERS: ATTEND Nurse Practitioner
DX: E11.621 Type 2 diabetes mellitus with foot ulcer (principal); L97.422 Non-pressure chronic ulcer of left heel and midfoot with fat layer exposed; N18.3 Chronic kidney disease, stage 3 (moderate); I50.21 Acute systolic (congestive) heart failure
CPT/HCPCS: 11042

== ENCOUNTER → 2017-07-18 | Outpatient (CLI) | payer MEDICARE, OTHER ==
[~2017-07-18] MED LIST changes: +CODE118S2 PO; -CODE118S4 PO
[2017-07-18 10:33] LABS: BILIRUBIN,URINE NEGATIVE (NEGATIVE); CLARITY,URINE CLEAR; COLOR,URINE YELLOW; GLUCOSE, URINE (UA) NEGATIVE (NEGATIVE); KETONES,URINE NEGATIVE (NEGATIVE); LEUKOCYTE ESTERASE ,URINE NEGATIVE (NEGATIVE); NITRITE,URINE NEGATIVE (NEGATIVE); PH,URINE 5 (5-9); PROTEIN,URINE 3+ (NEGATIVE); UROBILINOGEN,URINE NORMAL (NORMAL)
[2017-07-18 10:40] LABS: BACTERIA,URINE NEGATIVE /HPF; WBC,URINE RARE /HPF
== END ==
LOC: LAB 10:16
PROVIDERS: ATTEND Internal Medicine Nephrology
DX: I12.9 Hypertensive chronic kidney disease with stage 1 through stage 4 chronic kidney disease, or unspecified chronic kidney disease (principal); N18.3 Chronic kidney disease, stage 3 (moderate); D63.1 Anemia in chronic kidney disease
CPT/HCPCS: 81000

== ENCOUNTER → 2017-07-18 | Outpatient (CLI) | payer MEDICARE, OTHER | LOC: WOUNDCARE 08:39 | PROVIDERS: ATTEND Internal Medicine | DX: E11.621 Type 2 diabetes mellitus with foot ulcer (principal); L97.422 Non-pressure chronic ulcer of left heel and midfoot with fat layer exposed; N18.3 Chronic kidney disease, stage 3 (moderate); I50.21 Acute systolic (congestive) heart failure | CPT/HCPCS: 11042; 87070; 87075; 87077; 87101; 87186; 87205 ==

== ENCOUNTER 2017-07-25 10:00 | Outpatient (RCR) | payer MEDICARE, OTHER ==
[2017-05-24 09:20] VITALS: BP 118/74
[~2017-07-25] VITALS: Ht 177.8 cm; Wt 86.6 kg
[2017-07-25 11:10] VITALS: BP 134/81
== END 2017-08-22 | disposition home or self-care (01) ==
LOC: SDC 10:00
PROVIDERS: ATTEND Surgery
DX: I87.2 Venous insufficiency (chronic) (peripheral) (principal); Z45.2 Encounter for adjustment and management of vascular access device
CPT/HCPCS: 96523

== ENCOUNTER → 2017-07-25 | Outpatient (CLI) | payer MEDICARE, OTHER | LOC: WOUNDCARE 08:58 | PROVIDERS: ATTEND Internal Medicine | DX: E11.621 Type 2 diabetes mellitus with foot ulcer (principal); L97.422 Non-pressure chronic ulcer of left heel and midfoot with fat layer exposed; N18.3 Chronic kidney disease, stage 3 (moderate); I50.21 Acute systolic (congestive) heart failure | CPT/HCPCS: 11042 ==

== ENCOUNTER → 2017-08-01 | Outpatient (CLI) | payer MEDICARE, OTHER ==
[2017-08-01 08:53] LABS: BILIRUBIN,URINE NEGATIVE (NEGATIVE); CLARITY,URINE CLEAR; COLOR,URINE YELLOW; GLUCOSE, URINE (UA) NEGATIVE (NEGATIVE); KETONES,URINE NEGATIVE (NEGATIVE); LEUKOCYTE ESTERASE ,URINE NEGATIVE (NEGATIVE); NITRITE,URINE NEGATIVE (NEGATIVE); PH,URINE 5 (5-9); PROTEIN,URINE 3+ (NEGATIVE); UROBILINOGEN,URINE NORMAL (NORMAL)
[2017-08-01 09:48] LABS: BACTERIA,URINE NEGATIVE /HPF; RBC,URINE 0-2 /HPF; SQUAMOUS EPITHELIAL CELL,UR RARE /HPF; WBC,URINE 0-2 /HPF
== END ==
LOC: LAB 08:04
PROVIDERS: ATTEND Internal Medicine Nephrology
DX: N18.3 Chronic kidney disease, stage 3 (moderate) (principal)
CPT/HCPCS: 81000

== ENCOUNTER → 2017-08-01 | Outpatient (CLI) | payer MEDICARE, OTHER | LOC: WOUNDCARE 08:29 | PROVIDERS: ATTEND Internal Medicine | DX: E11.621 Type 2 diabetes mellitus with foot ulcer (principal); L97.422 Non-pressure chronic ulcer of left heel and midfoot with fat layer exposed; N18.3 Chronic kidney disease, stage 3 (moderate); I50.21 Acute systolic (congestive) heart failure | CPT/HCPCS: 11042 ==

== ENCOUNTER → 2017-08-12 | Outpatient (CLI) | payer MEDICARE, OTHER | LOC: WOUNDCARE 08:14 | PROVIDERS: ATTEND Surgery | DX: E11.621 Type 2 diabetes mellitus with foot ulcer (principal); L97.422 Non-pressure chronic ulcer of left heel and midfoot with fat layer exposed | CPT/HCPCS: 97605 ==

== ENCOUNTER → 2017-08-15 | Outpatient (CLI) | payer MEDICARE, OTHER | LOC: WOUNDCARE 08:02 | PROVIDERS: ATTEND Internal Medicine | DX: E11.621 Type 2 diabetes mellitus with foot ulcer (principal); L97.422 Non-pressure chronic ulcer of left heel and midfoot with fat layer exposed; N18.3 Chronic kidney disease, stage 3 (moderate); I50.21 Acute systolic (congestive) heart failure | CPT/HCPCS: 11042; 87070; 87075; 87077; 87101; 87186; 87205 ==

== ENCOUNTER → 2017-08-16 | Outpatient (CLI) | payer MEDICARE, OTHER | LOC: CARD 09:16 | PROVIDERS: ATTEND Physician Assistant | DX: I25.10 Atherosclerotic heart disease of native coronary artery without angina pectoris (principal); N18.9 Chronic kidney disease, unspecified; I12.9 Hypertensive chronic kidney disease with stage 1 through stage 4 chronic kidney disease, or unspecified chronic kidney disease; E78.5 Hyperlipidemia, unspecified; I34.0 Nonrheumatic mitral (valve) insufficiency | CPT/HCPCS: 93306 ==

== ENCOUNTER → 2017-08-20 | Outpatient (CLI) | payer MEDICARE, OTHER | LOC: WOUNDCARE 07:56 | PROVIDERS: ATTEND Nurse Practitioner | DX: E11.621 Type 2 diabetes mellitus with foot ulcer (principal); L97.422 Non-pressure chronic ulcer of left heel and midfoot with fat layer exposed | CPT/HCPCS: 97605 ==

== ENCOUNTER → 2017-08-22 | Outpatient (CLI) | payer MEDICARE, OTHER | LOC: WOUNDCARE 08:11 | PROVIDERS: ATTEND Internal Medicine | DX: E11.621 Type 2 diabetes mellitus with foot ulcer (principal); L97.422 Non-pressure chronic ulcer of left heel and midfoot with fat layer exposed | CPT/HCPCS: 11042; 97605 ==

== ENCOUNTER → 2017-08-26 | Outpatient (CLI) | payer MEDICARE, OTHER | LOC: WOUNDCARE 13:57 | PROVIDERS: ATTEND Nurse Practitioner | DX: E11.621 Type 2 diabetes mellitus with foot ulcer (principal); L97.422 Non-pressure chronic ulcer of left heel and midfoot with fat layer exposed | CPT/HCPCS: 97605 ==

== ENCOUNTER → 2017-08-29 | Outpatient (CLI) | payer MEDICARE, OTHER | LOC: WOUNDCARE 08:39 | PROVIDERS: ATTEND Nurse Practitioner | DX: L97.422 Non-pressure chronic ulcer of left heel and midfoot with fat layer exposed (principal); E11.621 Type 2 diabetes mellitus with foot ulcer; N18.3 Chronic kidney disease, stage 3 (moderate); I50.21 Acute systolic (congestive) heart failure | CPT/HCPCS: 11042; 97605 ==

== ENCOUNTER → 2017-09-02 | Outpatient (CLI) | payer MEDICARE, OTHER | LOC: WOUNDCARE 08:02 | PROVIDERS: ATTEND Surgery | DX: E11.621 Type 2 diabetes mellitus with foot ulcer (principal); L97.422 Non-pressure chronic ulcer of left heel and midfoot with fat layer exposed | CPT/HCPCS: 97605 ==

== ENCOUNTER → 2017-09-05 | Outpatient (CLI) | payer MEDICARE, OTHER | LOC: WOUNDCARE 08:10 | PROVIDERS: ATTEND Nurse Practitioner | DX: L97.422 Non-pressure chronic ulcer of left heel and midfoot with fat layer exposed (principal); E11.621 Type 2 diabetes mellitus with foot ulcer; N18.3 Chronic kidney disease, stage 3 (moderate); I50.21 Acute systolic (congestive) heart failure | CPT/HCPCS: 11042 ==

== ENCOUNTER → 2017-09-12 | Outpatient (CLI) | payer MEDICARE, OTHER | LOC: WOUNDCARE 08:08 | PROVIDERS: ATTEND Nurse Practitioner | DX: E11.621 Type 2 diabetes mellitus with foot ulcer (principal); L97.422 Non-pressure chronic ulcer of left heel and midfoot with fat layer exposed; I50.21 Acute systolic (congestive) heart failure; N18.3 Chronic kidney disease, stage 3 (moderate) | CPT/HCPCS: 11042 ==

== ENCOUNTER 2017-09-19 09:02 | Outpatient (RCR) | payer MEDICARE, OTHER ==
[~2017-09-19 09:02] MED LIST changes: -AMLO10TA2 PO; +AMLO10TA6 PO; -CODE118S2 PO; +CODE118S4 PO; +LINE600T33 PO; -LINE600T7 PO; -OXYC-201 PO; +OXYC1TAB16 PO
[2017-09-19 09:43] LABS: BASOPHILS % (AUTO) 1 % (0-10); EOSINOPHILS # (AUTO) 0.7 10^3/uL (0.0-0.3); EOSINOPHILS % (AUTO) 8 % (0-10); HEMATOCRIT 39 % (40-54); HEMOGLOBIN 13.5 G/DL (13.3-17.7); LYMPHOCYTES # (AUTO) 1.6 X 10^3 (1.0-4.0); LYMPHOCYTES % (AUTO) 19 % (12-44); MEAN CORPUSCULAR HEMOGLOBIN 31 PG (25-34); MEAN CORPUSCULAR HGB CONC 35 G/DL (32-36); MEAN CORPUSCULAR VOLUME 88 FL (80-99); MEAN PLATELET VOLUME 11.9 FL (7.4-10.4); MONOCYTES # (AUTO) 0.6 X 10^3 (0.0-1.0); MONOCYTES % (AUTO) 7 % (0-12); NEUTROPHILS # (AUTO) 5.4 X 10^3 (1.8-7.8); NEUTROPHILS % (AUTO) 65 % (42-75); PLATELET COUNT 145 10^3/uL (130-400); RED BLOOD COUNT 4.41 10^6/uL (4.35-5.85); RED CELL DISTRIBUTION WIDTH 16.9 % (10.0-14.5); WHITE BLOOD COUNT 8.2 10^3/uL (4.3-11.0)
[2017-09-19 10:12] LABS: ALBUMIN 3.8 GM/DL (3.2-4.5); BILIRUBIN,TOTAL 0.6 MG/DL (0.1-1.0); CALCIUM 9.6 MG/DL (8.5-10.1); CREATININE SERUM 2.07 MG/DL (0.60-1.30); POTASSIUM 4.2 MMOL/L (3.6-5.0); TOTAL PROTEIN 6.7 GM/DL (6.4-8.2)
[2017-09-19 10:33] LABS: FREE T4 (FREE THYROXINE) 1.54 NG/DL (0.70-1.48)
[2017-10-30] MEDS ORDERED: ISOS30TA3 PO (11:21)
[2017-10-31] MEDS ORDERED: CARV3.12 PO (08:12)
[2017-10-31] MEDS ORDERED: CEFU500T63 PO (08:12)
[2017-10-31] MEDS ORDERED: TETR-37 PO (08:53)
== END 2017-12-18 | disposition home or self-care (01) ==
LOC: LAB 09:02 → EDSTATUS 10-29 14:16
PROVIDERS: ATTEND Internal Medicine
DX: E78.1 Pure hyperglyceridemia (principal); E11.65 Type 2 diabetes mellitus with hyperglycemia; D50.8 Other iron deficiency anemias; E78.00 Pure hypercholesterolemia, unspecified; E03.9 Hypothyroidism, unspecified
CPT/HCPCS: 36415; 80053; 80061; 82043; 82728; 83036; 83540; 84439; 84443; 85025

== ENCOUNTER → 2017-09-26 | Outpatient (CLI) | payer MEDICARE, OTHER ==
[~2017-09-26] MED LIST changes: +AMLO10TA2 PO; -AMLO10TA6 PO; +CARV3.12 PO; +CEFU500T63 PO; +OXYC-201 PO; -OXYC1TAB16 PO; +TETR-37 PO
== END ==
LOC: WOUNDCARE 08:04
PROVIDERS: ATTEND Nurse Practitioner
DX: E11.621 Type 2 diabetes mellitus with foot ulcer (principal); L97.422 Non-pressure chronic ulcer of left heel and midfoot with fat layer exposed; N18.3 Chronic kidney disease, stage 3 (moderate); I50.21 Acute systolic (congestive) heart failure
CPT/HCPCS: 15275

== ENCOUNTER → 2017-10-03 | Outpatient (CLI) | payer MEDICARE, OTHER ==
[~2017-10-03] MED LIST changes: -LINE600T33 PO; +LINE600T7 PO
== END ==
LOC: WOUNDCARE 08:09
PROVIDERS: ATTEND Surgery
DX: E11.621 Type 2 diabetes mellitus with foot ulcer (principal); L97.422 Non-pressure chronic ulcer of left heel and midfoot with fat layer exposed; N18.3 Chronic kidney disease, stage 3 (moderate); I50.21 Acute systolic (congestive) heart failure
CPT/HCPCS: 11042

== ENCOUNTER → 2017-10-10 | Outpatient (CLI) | payer MEDICARE, OTHER ==
[~2017-10-10] MED LIST changes: +LINE600T33 PO; -LINE600T7 PO
== END ==
LOC: WOUNDCARE 08:16
PROVIDERS: ATTEND Surgery
DX: E11.621 Type 2 diabetes mellitus with foot ulcer (principal); L97.423 Non-pressure chronic ulcer of left heel and midfoot with necrosis of muscle; L97.422 Non-pressure chronic ulcer of left heel and midfoot with fat layer exposed; N18.3 Chronic kidney disease, stage 3 (moderate); I50.21 Acute systolic (congestive) heart failure
CPT/HCPCS: 11043

== ENCOUNTER → 2017-10-17 | Outpatient (CLI) | payer MEDICARE, OTHER | LOC: WOUNDCARE 08:10 | PROVIDERS: ATTEND Nurse Practitioner | DX: E11.621 Type 2 diabetes mellitus with foot ulcer (principal); L97.423 Non-pressure chronic ulcer of left heel and midfoot with necrosis of muscle; N18.3 Chronic kidney disease, stage 3 (moderate); I50.21 Acute systolic (congestive) heart failure | CPT/HCPCS: 15275 ==

== ENCOUNTER → 2017-10-24 | Outpatient (CLI) | payer MEDICARE, OTHER | LOC: WOUNDCARE 08:18 | PROVIDERS: ATTEND Nurse Practitioner | DX: E11.621 Type 2 diabetes mellitus with foot ulcer (principal); L97.423 Non-pressure chronic ulcer of left heel and midfoot with necrosis of muscle; N18.3 Chronic kidney disease, stage 3 (moderate); I50.21 Acute systolic (congestive) heart failure | CPT/HCPCS: 11042; 87070; 87075; 87077; 87186; 87205 ==

== ENCOUNTER 2017-10-30 09:37 | Day surgery (SDC) | payer MEDICARE, OTHER ==
[~2017-10-30] VITALS: Ht 177.8 cm; Wt 82.1 kg
[2017-10-30] VITALS (9 sets, daily range): BP systolic 143–161; BP diastolic 78–89
[~2017-10-30 09:37] MED LIST changes: -CARV3.12 PO; -CEFU500T63 PO; -TETR-37 PO
--- OUTSIDE RECORDS SUMMARY | 2017-10-30 09:41 | XMS REPORT | Clinical Summary ---
Author Author [facility] Organization [facility] Address Unknown Phone Unavailable Care Team Providers Care Green Building Materials Designer Name Role Phone Madelaine Salinas Unavailable Unavailable Tanvir Lorenzo MD Unavailable Jemal Chaudhary PCP Source Comments Some departments are not documenting in the electronic medical record. If you do not see the information that you expected, contact Release of Information in the Health Information Management department at [phone] for further assistance in locating additional records.[facility] Allergies Active Allergy Reactions Severity Noted [...] Coronary atherosclerosis of unspecified type of vessel, [place] or graft, Postsurgical aortocoronary bypass status, Obstructive [...] artery disease) Overview: 01/06/09- CABG x 4 ([facility]): Left internal thoracic artery-LAD. SVG-DIAG, SVG-OM1 [...] VACCINE (DM) 08/25/1977 COLORECTAL CANCER 08/25/2009 SCREENING SHINGLES RECOMBINANT 08/25/2009 VACCINE (1 of 2) INFLUENZA VACCINE 12/23/2017 Results Not on filefrom Last 3 Months
[2017-10-30] MEDS ORDERED: LIDOCAINE 1% INJ 20 ML 20 ML VIAL ONE ×2 (10:12→11:40)
[2017-10-30] MEDS ORDERED: HEParin (CATH LAB) 1,000 ML IV ONE (10:12)
[2017-10-30] MEDS ORDERED: NS IV 1000 ML 1,000 ML ONE (10:12)
[2017-10-30] MEDS ORDERED: NS IV 1000 ML 1,000 ML IV SCH ×2 (10:22→13:07)
[2017-10-30] MEDS ORDERED: ceFAZolin 1,000 MG (ANCEF) VIAL ONE (10:47)
[2017-10-30 10:58] LABS: HEMOGLOBIN 14.3 G/DL (13.3-17.7); MEAN PLATELET VOLUME 11.9 FL (7.4-10.4); RED BLOOD COUNT 4.49 10^6/uL (4.35-5.85); RED CELL DISTRIBUTION WIDTH 15.5 % (10.0-14.5); WHITE BLOOD COUNT 8.3 10^3/uL (4.3-11.0)
[2017-10-30] MEDS ORDERED: BACITRACIN INJECTION 50,000 UNIT, SODIUM CHLORIDE 0.9% IRRIGATIO 500 ML IR NR ×2 (10:58)
--- NOTE | 2017-10-30 11:05 | Diagnostic Imaging Report ---
INDICATION: Pre-heart catheterization. TIME OF EXAM: 10:49 a.m. Correlation is made with prior study 06/11/2017. Changes of median sternotomy and CABG are noted. Right chest wall port has tip overlying the SVC. The lungs are clear. No infiltrate or failure is seen. No effusion or pneumothorax is detected. IMPRESSION: No acute cardiopulmonary process is detected. Dictated by: Dictated on workstation # [id number]
[2017-10-30 11:13] LABS: PROTHROMBIN TIME PATIENT 13.2 SEC (12.2-14.7)
[2017-10-30 11:20] LABS: ALBUMIN 3.7 GM/DL (3.2-4.5); BILIRUBIN,TOTAL 0.8 MG/DL (0.1-1.0); CALCIUM 9.3 MG/DL (8.5-10.1); CREATININE SERUM 1.96 MG/DL (0.60-1.30); POTASSIUM 4.7 MMOL/L (3.6-5.0); TOTAL PROTEIN 6.7 GM/DL (6.4-8.2)
[2017-10-30] MEDS ORDERED: ISOS30TA3 PO (11:21)
[2017-10-30] MEDS ORDERED: fentaNYL INJECTION 100 MCG/2 ML AMP ONE (11:40)
[2017-10-30] MEDS ORDERED: MIDAZOLAM 5 MG/5 ML (VERSED) VIAL ONE (11:40)
--- NOTE | 2017-10-30 11:52 | Cardiac Procedure Note-CS/ASA ---
Pre-Procedure Note Pre-Op Procedure Note H&P Reviewed The H&P was reviewed, patient examined and no changes noted. Date H&P Reviewed: Oct 30, 2017 Time H&P Reviewed: 11:52 Conscious Sedation Pre-Proced Time Reviewed: 11:52 ASA Class: 3 Airway Mallampati Classification: ([place] appropriate class) I. II. III, IV Lungs Heart ASA score ASA 1: a normal healthy patient ASA 2: a patient with a mild systemic disease (mid diabetes, controlled hypertension, obesity X ASA 3: a patient with a severe systemic disease that limits activity (angina , COPD, prior Myocardial infarction) ASA 4: a patient with an incapacitating disease that is a constant threat to life (CHF, renal failure) ASA 5: a moribund patient not expected to survive 24 hrs. (ruptured aneurysm) ASA 6: a declared brain patient whose organs are being harvested. For emergent operations, add the letter E after the classification Grade 3 Sedation Plan: Analgesia, Amnesia, Plan communicated to team members, Discussed options with patient/fam, Discussed risks with patient/fam Note The patient is an appropriate candidate to undergo the planned procedure, sedation, and anesthesia. The patient immediately re-assessed prior to indication. JORDEN GREER MD Oct 30, 2017 11:52
[2017-10-30] MEDS ORDERED: NEO/POLY/BAC (NEOSPORIN) OINT 15 GM TUBE ONE (12:55)
[2017-10-30] MEDS ORDERED: PATIENT MAY USE OWN MEDS, ALL PO SCH (13:15)
--- NOTE | 2017-10-30 13:31 | Progress Note-Standard ---
Standard Progress Note Progress Notes/Assess & Plan Date Seen by Provider: Oct 30, 2017 Time Seen by Provider: 13:00 Progress/Assessment & Plan Anesthesia Progress Note ([id number]) Called to label operator for additional sedation for defibrillator function testing. Pt already given midazolam 4 mg IV and fentanyl 75 mcg IV prior to my arrival for sedation during the defibrillator placement. He is able to open his eyes on command at my arrival and after Propofol 50 mg he was unable to do so. He tolerated the testing well and VS remained stable while I was present. Will be available if needed. ASA Class 3 Anesthesia Type MAGI STAFFORD DO Oct 30, 2017 13:31
[2017-10-30] MEDS ORDERED: proPOfol 200 MG/20 ML (DIPRIVAN) VIAL IV ONE (13:43)
--- NOTE | 2017-10-30 14:23 | Diagnostic Imaging Report ---
AP chest at 2:37 PM INDICATION: Pacemaker insertion. FINDINGS: In the interval since the exam performed earlier today at 10:49 AM, a left-sided defibrillator device has been inserted. The device appears to be in good position and there is no sign of pneumothorax. The overall appearance of the chest is otherwise no different. IMPRESSION: There has been interval insertion of a left-sided defibrillator device without apparent complication. Dictated by: Dictated on workstation # [id number]
--- NOTE | 2017-10-30 17:48 | Wound Care Assessment ---
Wound Care Assessment Date Seen by Provider: Oct 30, 2017 Time Seen by Provider: 17:47 Chief Complaint L lateral foot ulcer. Past Medical History: Admits Diabetes Type II, Admits Heart Disease, Admits Peripheral Artery Disease Smoking Status: Current Everyday Smoker Exam Vital Signs Date Time Temp Pulse Resp B/P (MAP) Pulse Ox O2 Delivery O2 Flow Rate FiO2 10/30/17 10:45 97.0 79 18 145/88 (107) 100 Capillary Refill : Skin: other (L lateral foot ulcer -- 1.4 x 0.3 x 0.8 cm; base 100% slough, mod. s.s. drainage.) Results Laboratory Tests 10/30/17 10:49: White Blood Count 8.3, Red Blood Count 4.49, Hemoglobin 14.3, Hematocrit 41, Mean Corpuscular Volume 90, Mean Corpuscular Hemoglobin 32, Mean Corpuscular Hemoglobin Concent 35, Red Cell Distribution Width 15.5H, Platelet Count 135, Mean Platelet Volume 11.9H, Prothrombin Time 13.2, INR Comment 1.0, Activated Partial Thromboplast Time 30, Sodium Level 137, Potassium Level 4.7, Chloride Level 109H, Carbon Dioxide Level 22, Anion Gap 6, Blood Urea Nitrogen 41H, Creatinine 1.96H, Estimat Glomerular Filtration Rate 35, BUN/Creatinine Ratio 21 , Glucose Level 144H, Calcium Level 9.3, Corrected Calcium 9.5, Total Bilirubin 0.8, Aspartate Amino Transf (AST/SGOT) 25, Alanine Aminotransferase (ALT/SGPT) 41, Alkaline Phosphatase 77, Total Protein 6.7, Albumin 3.7, Triglycerides Level 185H, Cholesterol Level 186, LDL Cholesterol Direct 118, VLDL Cholesterol 37, HDL Cholesterol 33L EDITH RUTH MD Oct 30, 2017 17:48
[2017-10-30] MEDS: ceFAZolin INJECTION 1,000 MG in NS (IVPB) 50 ML IV SCH (18:43)
[2017-10-30] MEDS ORDERED: morphine INJ 10 MG/ML 1ML (SYR OR VIAL) ONE (21:30)
[2017-10-30] MEDS ORDERED: HYDROcodone/APAP 7.5 MG/325 MG (LORTAB, LORCET PLUS) TABLET PO ONE (21:30)
[2017-10-30] MEDS: morphine INJ 10 MG/ML 1ML (SYR OR VIAL) IVP PRN (21:36)
[2017-10-30] MEDS: HYDROcodone/APAP 7.5 MG/325 MG (LORTAB, LORCET PLUS) TABLET PO PRN (21:36)
--- NOTE | 2017-10-30 22:29 | OPERATIVE REPORT ---
DATE OF SERVICE: 10/30/2017 SINGLE CHAMBER ICD IMPLANTATION REPORT BRIEF HISTORY: The patient is a 57-year-old gentleman with coronary artery disease, severe ischemic cardiomyopathy, inoperable coronary artery disease. Has significant left ventricular systolic dysfunction that has been persistent in spite of aggressive medical therapy. I repeated 2D echocardiogram this morning, which showed ejection fraction 30%, decided to continue with the planned single chamber ICD implantation procedure. PROCEDURE NOTE: After explaining the procedure to the patient, all pros and cons were explained, all questions were answered. The patient signed a consent and he was placed in the cardiac catheterization laboratory. Conscious sedation achieved. Then, local anesthesia applied. Skin incision was made and the left subclavian vein was accessed using a modified Seldinger technique. I placed ventricular lead using [employer] with serial #[id number] advanced to the right ventricular apex. Good sensing and capture activity. Then, a skin pocket was made and irrigated with antibiotic solution. Then, a single chamber ICD device [employer] with serial #[id number] attached to the device and placed in the pocket. Pocket was closed with two layers of sutures with no complication. Successful single chamber ICD device implantation with no complication. DFT TESTING: Anesthesia were called for conscious sedation. After achieving conscious sedation, the patient received rapid ventricular pacing. Then, a T-shock induced ventricular fibrillation. Good sensing and capture activity. The patient received defibrillation shock with 25 energy, charge time was 6.1. Successful in terminating ventricular fibrillation. CONCLUSION: Successful DFT testing in terminating V-fib. FINAL DIAGNOSES: 1. Congestive heart failure, chronic left ventricular systolic dysfunction, compensated ischemic cardiomyopathy with ejection fraction 30%. 2. Coronary artery disease. 3. Hypertension. 4. Hyperlipidemia. Job ID: [id number] DocumentID: [id number] Dictated Date: 10/30/2017 13:14:36 Python Programmer Date: 10/30/2017 22:11:18 Dictated By: JORDEN GREER MD
[2017-10-31] VITALS: BP 153/90
[2017-10-31] MEDS: morphine INJ 10 MG/ML 1ML (SYR OR VIAL) IVP PRN (00:46)
[2017-10-31] MEDS: HYDROcodone/APAP 7.5 MG/325 MG (LORTAB, LORCET PLUS) TABLET PO PRN (00:47)
[2017-10-31] MEDS: ceFAZolin INJECTION 1,000 MG in NS (IVPB) 50 ML IV SCH (02:50)
[2017-10-31 04:00] VITALS: BP 155/88
[2017-10-31 06:51] LABS: HEMOGLOBIN 13.9 G/DL (13.3-17.7); MEAN PLATELET VOLUME 11.8 FL (7.4-10.4); RED BLOOD COUNT 4.54 10^6/uL (4.35-5.85); RED CELL DISTRIBUTION WIDTH 15.3 % (10.0-14.5); WHITE BLOOD COUNT 8.9 10^3/uL (4.3-11.0)
[2017-10-31 07:12] LABS: ALBUMIN 3.4 GM/DL (3.2-4.5); BILIRUBIN,TOTAL 0.7 MG/DL (0.1-1.0); CALCIUM 8.6 MG/DL (8.5-10.1); CREATININE SERUM 1.65 MG/DL (0.60-1.30); POTASSIUM 4.5 MMOL/L (3.6-5.0); TOTAL PROTEIN 5.9 GM/DL (6.4-8.2)
[2017-10-31 08:00] VITALS: BP 166/83
[2017-10-31] MEDS ORDERED: CEFU500T63 PO (08:12)
[2017-10-31] MEDS ORDERED: CARV3.12 PO (08:12)
--- NOTE | 2017-10-31 08:15 | Cardiology Progress Note ---
Subjective Date Seen by Provider: Oct 31, 2017 Time Seen by Provider: 08:14 Subjective/Events-last exam Patient is laying down in bed, feeling better. No new complaint, had some nausea and vomiting last night that has improved Review of Systems General: No Chills, No Night Sweats, No Fatigue, No Malaise, No Appetite, No Other HEENT: No Head Aches, No Visual Changes, No Eye Pain, No Ear Pain, No Dysphasia , No Sinus Congestion, No Post Nasal Drip, No Sore Throat, No Other Pulmonary: No Dyspnea, No Cough, No Pleuritic Chest Pain, No Other Cardiovascular: No: Chest Pain, Palpitations, Orthopnea, Paroxysmal Noc. Dyspnea, Edema, Lt Headedness, Other Objective-Cardiology Exam Last Set of Vital Signs Vital Signs 10/31/17 04:00 Temp 96.9 Pulse 63 Resp 14 B/P (MAP) 155/88 (110) Pulse Ox 97 O2 Delivery Room Air Capillary Refill : General: Alert, Oriented X3, Cooperative HEENT: Atraumatic, PERRLA Neck: Supple, No JVD, No Thyromegaly Lungs: Clear to Auscultation, Normal Air Movement Heart: Regular Rate, Normal S1, Normal S2, No Murmurs Abdomen: Normal Bowel Sounds, Soft, No Tenderness, No Hepatosplenomegaly, No Masses Extremities: No Clubbing, No Cyanosis, No Edema, Normal Pulses, No Tenderness/ Swelling Skin: No Rashes, No Breakdown, No Significant Lesion Neuro: Normal Gait, Normal Speech, Strength at 5/5 X4 Ext, Normal Tone, Sensation Intact Psych/Mental Status: Mental Status NL, Mood NL Results Lab Laboratory Tests 10/30/17 10:49 10/31/17 06:30 10/31/17 06:36 A/P-Cardiology Admission Diagnosis Congestive heart failure, chronic compensated left ventricular systolic dysfunction, ischemic cardiomyopathy Ejection fraction 30 percent Coronary artery disease Peripheral arterial disease Hypertension Hyperlipidemia Assessment/Plan Congestive heart failure, advanced left ventricular systolic dysfunction, nonischemic cardiomyopathy, status post single-chamber ICD implantation without any complication. Coronary artery disease, inoperable, medical therapy Extensive peripheral arterial disease, history of multiple foot ulcers. Hypertension, controlled Hyperlipidemia JORDEN GREER MD Oct 31, 2017 08:15
[2017-10-31] MEDS ORDERED: TETR-37 PO (08:53)
== END 2017-10-31 11:10 | disposition home or self-care (01) ==
LOC: CATH 09:37 → ICU 13:48 → CATH 10-31 11:10
PROVIDERS: ATTEND Internal Medicine Cardiovascular Disease
DX: I50.22 Chronic systolic (congestive) heart failure (principal); I25.5 Ischemic cardiomyopathy; N17.9 Acute kidney failure, unspecified; I25.10 Atherosclerotic heart disease of native coronary artery without angina pectoris; I73.9 Peripheral vascular disease, unspecified; I10 Essential (primary) hypertension; E78.5 Hyperlipidemia, unspecified; E11.42 Type 2 diabetes mellitus with diabetic polyneuropathy; E03.9 Hypothyroidism, unspecified; I34.0 Nonrheumatic mitral (valve) insufficiency; Z87.891 Personal history of nicotine dependence; Z79.4 Long term (current) use of insulin; Z79.899 Other long term (current) drug therapy; I65.23 Occlusion and stenosis of bilateral carotid arteries; Z91.19 Patient's noncompliance with other medical treatment and regimen
CPT/HCPCS: 33249; 33262; 36415; 71045; 80053; 80061; 82962; 85027; 85610; 85730; 87040; 87081; 93005; 93306; 93641

== ENCOUNTER → 2017-11-07 | Outpatient (CLI) | payer MEDICARE, OTHER ==
[~2017-11-07] MED LIST changes: +CARV3.12 PO; +CEFU500T63 PO; +TETR-37 PO
== END ==
LOC: WOUNDCARE 08:16
PROVIDERS: ATTEND Nurse Practitioner
DX: E11.621 Type 2 diabetes mellitus with foot ulcer (principal); L97.423 Non-pressure chronic ulcer of left heel and midfoot with necrosis of muscle; N18.3 Chronic kidney disease, stage 3 (moderate); I50.21 Acute systolic (congestive) heart failure
CPT/HCPCS: 11042

== ENCOUNTER 2017-11-20 08:19 | Outpatient (RCR) | payer MEDICARE, OTHER ==
[2017-11-07 12:45] VITALS: BP 139/75
[2017-11-07 15:30] VITALS: BP 139/75
[2017-11-08] MEDS: VANCOMYCIN 1500 MG/NS 500 ML IVPB IV SCH ×2 (11:05)
[2017-11-08 11:06] VITALS: BP 140/80
[2017-11-08 13:16] VITALS: BP 140/80
[2017-11-09] MEDS: VANCOMYCIN 1500 MG/NS 500 ML IVPB IV SCH ×2 (08:34)
[2017-11-09 10:45] VITALS: BP 104/73
[2017-11-10] MEDS: VANCOMYCIN 1500 MG/NS 500 ML IVPB IV SCH ×2 (09:25)
[2017-11-10 11:39] VITALS: BP 131/83
[2017-11-11] MEDS: VANCOMYCIN 1500 MG/NS 500 ML IVPB IV SCH ×2 (08:30)
[2017-11-11 10:42] VITALS: BP 104/70
[2017-11-12 08:30] VITALS: BP 155/107
[2017-11-12] MEDS: VANCOMYCIN 1500 MG/NS 500 ML IVPB IV SCH ×2 (09:30)
[2017-11-13 08:45] VITALS: BP 114/78
[2017-11-13] MEDS: VANCOMYCIN INJECTION 1,250 MG in NS (IVPB) 250 ML IV SCH (08:48)
[2017-11-14] MEDS: VANCOMYCIN INJECTION 1,250 MG in NS (IVPB) 250 ML IV SCH (09:09)
[2017-11-14 09:27] VITALS: BP 163/97
[2017-11-15 08:15] VITALS: BP 137/80
[2017-11-15] MEDS: VANCOMYCIN INJECTION 1,250 MG in NS (IVPB) 250 ML IV SCH (08:31)
[2017-11-16 08:05] VITALS: BP 137/83
[2017-11-16] MEDS: VANCOMYCIN INJECTION 1,250 MG in NS (IVPB) 250 ML IV SCH (08:54)
[2017-11-17 08:04] VITALS: BP 150/85
[2017-11-17] MEDS: VANCOMYCIN INJECTION 1,250 MG in NS (IVPB) 250 ML IV SCH (08:10)
[2017-11-18 08:16] VITALS: BP 138/79
[2017-11-18] MEDS: VANCOMYCIN INJECTION 1,250 MG in NS (IVPB) 250 ML IV SCH (08:27)
[2017-11-19] MEDS: VANCOMYCIN INJECTION 1,250 MG in NS (IVPB) 250 ML IV SCH (08:04)
[2017-11-19 09:45] VITALS: BP 153/96
[~2017-11-20] VITALS: Ht 177.8 cm; Wt 85.7 kg
[~2017-11-20 08:19] MED LIST changes: -AMLO10TA2 PO; +AMLO10TA6 PO; +LIDOCAINE TOPICAL 4% 50 ML BTL MM SCH; -OXYC-201 PO; +OXYC1TAB16 PO; +TROUGH ORDER-PHARMACY XX NR; +VANCOMYCIN 2000 MG/NS 500 ML IVPB IV NR
[2017-11-20 08:30] VITALS: BP 139/80
[2017-11-20] MEDS: VANCOMYCIN INJECTION 1,250 MG in NS (IVPB) 250 ML IV SCH (08:30)
== END 2017-12-06 12:52 | disposition home or self-care (01) ==
LOC: SDC 08:19
PROVIDERS: ATTEND Nurse Practitioner
DX: E11.621 Type 2 diabetes mellitus with foot ulcer (principal); L97.423 Non-pressure chronic ulcer of left heel and midfoot with necrosis of muscle
CPT/HCPCS: 36415; 36591; 80202; 96365; 96366

== ENCOUNTER → 2017-11-28 | Outpatient (CLI) | payer MEDICARE, OTHER ==
[~2017-11-28] MED LIST changes: -LIDOCAINE TOPICAL 4% 50 ML BTL MM SCH; -TROUGH ORDER-PHARMACY XX NR; -VANCOMYCIN 2000 MG/NS 500 ML IVPB IV NR
== END ==
LOC: WOUNDCARE 08:10
PROVIDERS: ATTEND Surgery
DX: E11.621 Type 2 diabetes mellitus with foot ulcer (principal); L97.422 Non-pressure chronic ulcer of left heel and midfoot with fat layer exposed; N18.3 Chronic kidney disease, stage 3 (moderate); I50.21 Acute systolic (congestive) heart failure
CPT/HCPCS: 11042; 87070; 87075; 87077; 87186; 87205

== ENCOUNTER → 2017-12-05 | Outpatient (CLI) | payer MEDICARE, OTHER | LOC: WOUNDCARE 08:11 | PROVIDERS: ATTEND Nurse Practitioner | DX: E11.621 Type 2 diabetes mellitus with foot ulcer (principal); L97.422 Non-pressure chronic ulcer of left heel and midfoot with fat layer exposed; N18.3 Chronic kidney disease, stage 3 (moderate); I50.21 Acute systolic (congestive) heart failure | CPT/HCPCS: 11042 ==

== ENCOUNTER → 2017-12-06 | Outpatient (CLI) | payer MEDICARE, OTHER ==
[2017-12-06 10:34] LABS: CALCIUM 8.9 MG/DL (8.5-10.1); CREATININE SERUM 2.15 MG/DL (0.60-1.30); POTASSIUM 4.8 MMOL/L (3.6-5.0)
== END ==
LOC: LAB 09:56
PROVIDERS: ATTEND Nurse Practitioner
DX: E11.621 Type 2 diabetes mellitus with foot ulcer (principal); L97.422 Non-pressure chronic ulcer of left heel and midfoot with fat layer exposed; N18.3 Chronic kidney disease, stage 3 (moderate); I50.21 Acute systolic (congestive) heart failure
CPT/HCPCS: 36415; 80048

== ENCOUNTER → 2017-12-10 | Outpatient (CLI) | payer MEDICARE, OTHER ==
[2017-12-10 14:35] LABS: ALBUMIN 3.8 GM/DL (3.2-4.5); BILIRUBIN,TOTAL 0.5 MG/DL (0.1-1.0); CALCIUM 9.1 MG/DL (8.5-10.1); POTASSIUM 4.5 MMOL/L (3.6-5.0); TOTAL PROTEIN 7.1 GM/DL (6.4-8.2)
--- NOTE | 2017-12-10 15:53 | Diagnostic Imaging Report ---
INDICATION: Hypertension and coronary artery disease. TIME OF EXAM: 02:15 p.m. Correlation is made with prior study from 10/30/2017. FINDINGS: Changes of median sternotomy and CABG are noted. Cardiac defibrillator is in place. Right chest wall port remains in place. The lungs are clear. There is some hyperinflation consistent with COPD. No effusion or pneumothorax is identified. IMPRESSION: COPD. No acute feature is detected. Dictated by: Dictated on workstation # [id number]
== END ==
LOC: RAD 13:41
PROVIDERS: ATTEND Physician Assistant
DX: J44.9 Chronic obstructive pulmonary disease, unspecified (principal); I25.10 Atherosclerotic heart disease of native coronary artery without angina pectoris; I12.9 Hypertensive chronic kidney disease with stage 1 through stage 4 chronic kidney disease, or unspecified chronic kidney disease; N18.9 Chronic kidney disease, unspecified; Z98.890 Other specified postprocedural states; Z95.1 Presence of aortocoronary bypass graft; E78.2 Mixed hyperlipidemia
CPT/HCPCS: 36415; 71046; 80053; 84443

== ENCOUNTER → 2017-12-12 | Outpatient (CLI) | payer MEDICARE, OTHER | LOC: WOUNDCARE 08:13 | PROVIDERS: ATTEND Nurse Practitioner | DX: E11.621 Type 2 diabetes mellitus with foot ulcer (principal); L97.422 Non-pressure chronic ulcer of left heel and midfoot with fat layer exposed; I50.21 Acute systolic (congestive) heart failure; N18.4 Chronic kidney disease, stage 4 (severe) | CPT/HCPCS: 11042 ==

== ENCOUNTER → 2017-12-18 | Outpatient (CLI) | payer MEDICARE, OTHER | LOC: WOUNDCARE 09:17 | PROVIDERS: ATTEND Surgery | DX: E11.621 Type 2 diabetes mellitus with foot ulcer (principal); L97.423 Non-pressure chronic ulcer of left heel and midfoot with necrosis of muscle; I50.21 Acute systolic (congestive) heart failure; N18.4 Chronic kidney disease, stage 4 (severe) | CPT/HCPCS: 11043 ==

== ENCOUNTER → 2017-12-18 | Outpatient (CLI) | payer MEDICARE, OTHER ==
[2017-12-18 13:29] LABS: CALCIUM 8.9 MG/DL (8.5-10.1); CREATININE SERUM 2.59 MG/DL (0.60-1.30); POTASSIUM 5.1 MMOL/L (3.6-5.0)
--- NOTE | 2017-12-18 15:12 | Diagnostic Imaging Report ---
EXAMINATION: Left foot at 1:00 p.m. INDICATION: Osteomyelitis of the heel. Three views were obtained. FINDINGS: As noted on the prior exam of 08/18/2015, there are postsurgical changes involving the forefoot including transmetatarsal amputation of the first and second digits. The chronic erosion at the head of the fifth metatarsal seen previously is also again evident and unchanged. There is no fracture or acute bony abnormality evident. There is no sign of bony destruction to suggest osteomyelitis either. The soft tissues are unremarkable. IMPRESSION: 1. There are postsurgical and degenerative changes involving the foot, but there is no sign of an acute abnormality. 2. If clinical concern regarding osteomyelitis persists, then MRI would be recommended for additional study. Dictated by: Dictated on workstation # [id number]
== END ==
LOC: RAD 11:58
PROVIDERS: ATTEND Surgery
DX: E11.621 Type 2 diabetes mellitus with foot ulcer (principal); L97.423 Non-pressure chronic ulcer of left heel and midfoot with necrosis of muscle; E11.22 Type 2 diabetes mellitus with diabetic chronic kidney disease; N18.4 Chronic kidney disease, stage 4 (severe); I50.21 Acute systolic (congestive) heart failure; I70.244 Atherosclerosis of native arteries of left leg with ulceration of heel and midfoot; M19.072 Primary osteoarthritis, left ankle and foot; M86.8X7 Other osteomyelitis, ankle and foot; Z98.890 Other specified postprocedural states
CPT/HCPCS: 36415; 73630; 80048

== ENCOUNTER → 2017-12-26 | Outpatient (CLI) | payer MEDICARE, OTHER ==
[~2017-12-26] MED LIST changes: +AMIO200T4 PO
== END ==
LOC: WOUNDCARE 08:12
PROVIDERS: ATTEND Nurse Practitioner
DX: E11.621 Type 2 diabetes mellitus with foot ulcer (principal); L97.423 Non-pressure chronic ulcer of left heel and midfoot with necrosis of muscle; I50.21 Acute systolic (congestive) heart failure; N18.4 Chronic kidney disease, stage 4 (severe)
CPT/HCPCS: 11042; 87070; 87075; 87077; 87186; 87205

== ENCOUNTER 2018-01-01 07:39 | Day surgery (SDC) | payer MEDICARE, OTHER ==
[2018-01-01] VITALS (11 sets, daily range): BP systolic 148–183; BP diastolic 78–97
[~2018-01-01] VITALS: Ht 177.8 cm; Wt 90.1 kg
[~2018-01-01 07:39] MED LIST changes: -AMIO200T4 PO
--- OUTSIDE RECORDS SUMMARY | 2018-01-01 07:42 | XMS REPORT | Clinical Summary ---
Author Author [facility] Organization [facility] Address Unknown Phone Unavailable Care Team Providers Care Nurse Licensed Practical Name Role Phone Madelaine Salinas Unavailable Unavailable Tanvir Lorenzo MD Unavailable Jemal Chaudhary PCP Source Comments Some departments are not documenting in the electronic medical record. If you do not see the information that you expected, contact Release of Information in the Health Information Management department at [phone] for further assistance in locating additional records.[facility] Allergies Active Allergy Reactions Severity Noted Date [...] Coronary atherosclerosis of unspecified type of vessel, [place] or graft, Postsurgical aortocoronary bypass status, Obstructive [...] artery disease) Overview: 01/06/09- CABG x 4 ([facility]): Left internal thoracic artery-LAD. SVG-DIAG, SVG-OM1 and [...] 08/25/2009 VACCINE (1 of 2) INFLUENZA VACCINE 10/23/2017 Results Not on filefrom Last 3 Months
[2018-01-01] MEDS ORDERED: NS IV 1000 ML 1,000 ML ONE (07:46)
[2018-01-01] MEDS ORDERED: LIDOCAINE 1% INJ 20 ML 20 ML VIAL ONE (07:46)
[2018-01-01] MEDS ORDERED: HEParin (CATH LAB) 2,000 ML IV ONE (07:46)
[2018-01-01] MEDS ORDERED: NS IV 1000 ML 1,000 ML IV SCH (07:57)
--- NOTE | 2018-01-01 08:25 | Diagnostic Imaging Report ---
INDICATION: Peripheral vascular disease and hypertension. PA chest obtained at 8:09 a.m. and compared with 12/10/2017. There is poststernotomy change with heart size normal. Pacemaker device is unchanged. There is a Port-A-Cath in place which is unchanged from 12/10/2017. There is no focal infiltrate or pneumothorax or pleural fluid. IMPRESSION: Postop findings as above with no acute process in the chest. Dictated by: Dictated on workstation # [id number]
[2018-01-01 08:34] LABS: HEMOGLOBIN 14.8 G/DL (13.3-17.7); MEAN PLATELET VOLUME 11.3 FL (7.4-10.4); RED BLOOD COUNT 4.61 10^6/uL (4.35-5.85); RED CELL DISTRIBUTION WIDTH 15.2 % (10.0-14.5); WHITE BLOOD COUNT 8.2 10^3/uL (4.3-11.0)
[2018-01-01 08:53] LABS: ALBUMIN 3.8 GM/DL (3.2-4.5); BILIRUBIN,TOTAL 0.7 MG/DL (0.1-1.0); CALCIUM 9.3 MG/DL (8.5-10.1); CREATININE SERUM 2.18 MG/DL (0.60-1.30); POTASSIUM 4.7 MMOL/L (3.6-5.0)
[2018-01-01 08:55] LABS: PROTHROMBIN TIME PATIENT 13.5 SEC (12.2-14.7)
[2018-01-01] MEDS ORDERED: AMIO200T4 PO (09:03)
--- NOTE | 2018-01-01 09:17 | Cardiac Procedure Note-CS/ASA ---
Pre-Procedure Note Pre-Op Procedure Note H&P Reviewed The H&P was reviewed, patient examined and no changes noted. Date H&P Reviewed: Jan 01, 2018 Time H&P Reviewed: 09:16 Conscious Sedation Pre-Proced Time 09:17 ASA Score 3 For ASA 3 and 4: Consider anesthesia and medical clearance. Also, for patients with a history of failed moderate sedation consider anesthesia. Airway Lungs Heart ASA score ASA 1: a normal healthy patient ASA 2: a patient with a mild systemic disease (mid diabetes, controlled hypertension, obesity x ASA 3: a patient with a severe systemic disease that limits activity (angina , COPD, prior Myocardial infarction) ASA 4: a patient with an incapacitating disease that is a constant threat to life (CHF, renal failure) ASA 5: a moribund patient not expected to survive 24 hrs. (ruptured aneurysm) ASA 6: a declared brain patient whose organs are being harvested. For emergent operations, add the letter E after the classification Mallampati Classification Grade 3 Sedation Plan Analgesia, Amnesia, Plan communicated to team members, Discussed options with patient/fam, Discussed risks with patient/fam The patient is an appropriate candidate to undergo the planned procedure, sedation, and anesthesia. The patient immediately re-assessed prior to indication. JORDEN GREER MD Jan 01, 2018 09:17
[2018-01-01] MEDS ORDERED: FLU QUADRIvalent (5+ YOA) 2018-2019 (AFLURIA) 0.5 ML IM ONE (09:30)
[2018-01-01] MEDS ORDERED: MIDAZOLAM 5 MG/5 ML (VERSED) VIAL ONE (09:59)
[2018-01-01] MEDS ORDERED: fentaNYL INJECTION 100 MCG/2 ML AMP ONE (09:59)
[2018-01-01] MEDS ORDERED: HEParin 1000 UNIT/ML (10ML VIAL) FOR BOLUS ONE (10:29)
[2018-01-01] MEDS ORDERED: CLOPIDOGREL 300 MG (PLAVIX) TABLET PO ONE (11:11)
[2018-01-01] MEDS ORDERED: ASPIRIN 325 MG (5 GR) TABLET ONE (11:11)
[2018-01-01] MEDS ORDERED: PATIENT MAY USE OWN MEDS, ALL PO SCH (11:15)
[2018-01-01] MEDS: ACETAMINOPHEN 325 MG TABLET PO PRN ×2 (12:27→18:19)
[2018-01-01] MEDS: NS IV 1000 ML 1,000 ML IV SCH ×3 (12:55→22:28)
--- NOTE | 2018-01-01 13:00 | Peripheral Report ---
Peripheral Report Physician (s)/Production Stage Manager (s) Physician JORDEN GREER MD Pre-Procedure Diagnosis Pre-Procedure Diagnosis: Peripheral arterial disease, nonhealing ulcer Post-Procedure Note Procedure Start Date: Jan 01, 2018 Name of Procedure: bilateral lower extremity runoff Third order Selective anterior tibial artery angiogram Selective peroneal artery angiogram Balloon angioplasty to the left peroneal artery Findings/Procedure Note PROCEDURE NOTE: After explaining the procedure to the patient, all pros and cons were explained , all questions were answered. The patient signed the consent and then he was placed on the cardiac catheterization laboratory. The patient was placed on the cardiac catheterization laboratory. Groin was prepped SL fashion local anesthesia was used. Sheath placed in the right femoral artery. Rim catheter was used to cross over and it was placed in the left iliac artery and runoff to the left lower extremity was done then and long stork wire was advanced and the straight catheter was placed in the popliteal artery and angiogram was done at that time I decided to proceed with pertains intervention. Patient was given 5000 units of heparin, long sheath was placed from the right groin advanced to the left SFA then I advanced as straight catheter and over the straight catheter I was able to use a command wire, advanced it in the anterior tibial artery that was totally occluded, exchanged the straight catheter into mini catheter in the anterior tibial artery removed the wire and did angiogram. I was unable to cross the lesion. The catheter and wire were retrieved then advanced in the peroneal artery that has subtotal occlusion, balloon angioplasty using 3.0 diameter 120 mm was done with 3 minute inflation, angiogram showed good results and the peroneal artery. Then I attempted again after exchanging into a straight catheter and trying to advance in the anterior tibial artery without success. At that point I remove the catheter and did runoff through the sheath. Then the sheath was exchanged into short 6 [place] sheath. Runoff to the right lower except he was done. Then the sheath was removed and closure device was used. FINDINGS: 1. Left lower extremity, patent stent in the left SFA, moderate to severe stenosis in the distal SFA, total occlusion of the anterior tibial artery with attempt for angioplasty without success in crossing the lesion, subtotal occlusion of the peroneal artery was successful balloon angioplasty with good results. Improvement of the flow down to the foot through the peroneal artery. 2. Right lower extremity, moderate disease with slow flow down to the trifurcation. Unable to see the arteries below the trifurcation CONCLUSIONS: 1. Total occlusion of the anterior tibial artery, with unsuccessful attempt to cross the lesion. If patient continues to be with nonhealing ulcer I will consider antegrade access through the left groin and possible attempt for intervention. 2. Subtotal occlusion of the left peroneal artery was successful balloon angioplasty with excellent results with improvement in the flow down to the heel of the foot 3. Patent stent in the proximal and mid left SFA with moderate severe stenosis distally, consideration for intervention if patient continued to have nonhealing ulcer 4. Mild to moderate disease on the right lower extremity DISCUSSION AND RECOMMENDATIONS: I will continue maximizing medical therapy, reevaluate in one week. If there is any improvement in the ulcer will continue with medical therapy otherwise I will attempt with antegrade access to the left lower extremity and possible intervention of the anterior tibial artery and the mid and distal left SFA Anesthesia Type: Conscious Sedation Estimated blood loss (mL): 20 ml Contrast Amount: 23 ml Total Radiation Dose: 126 mGy Post-Procedure Diagnosis Post-operative diagnosis: nonhealing foot ulcer Peripheral arterial disease Coronary artery disease Hypertension JORDEN GREER MD Jan 01, 2018 13:00
[2018-01-01] MEDS: OMEGA 3 (FISH OIL) 1000 MG CAP PO SCH (16:40)
[2018-01-01] MEDS: FUROSEMIDE 40 MG (LASIX) TAB PO SCH ×2 (16:40→16:41)
[2018-01-01] MEDS: CARVEDILOL 3.125 MG (COREG) TABLET PO SCH (20:25)
[2018-01-01] MEDS ORDERED: ATORVASTATIN 80 MG (LIPITOR) TABLET PO SCH (21:00)
[2018-01-01] MEDS ORDERED: NON-FORMULARY MEDICATION 1 EA EA (Lovastatin 20 MG) PO SCH (21:00)
[2018-01-02 00:57] VITALS: BP 160/80
[2018-01-02 04:46] VITALS: BP 162/80
[2018-01-02] MEDS: OMEGA 3 (FISH OIL) 1000 MG CAP PO SCH (06:20)
[2018-01-02] MEDS ORDERED: LEVOTHYROXINE 100 MCG (LEVOTHROID) TAB PO SCH (06:30)
[2018-01-02 06:43] LABS: HEMOGLOBIN 13.5 G/DL (13.3-17.7); MEAN PLATELET VOLUME 11.4 FL (7.4-10.4); RED BLOOD COUNT 4.37 10^6/uL (4.35-5.85); RED CELL DISTRIBUTION WIDTH 15.2 % (10.0-14.5); WHITE BLOOD COUNT 7.4 10^3/uL (4.3-11.0)
[2018-01-02 06:59] LABS: CALCIUM 8.4 MG/DL (8.5-10.1); CREATININE SERUM 2.01 MG/DL (0.60-1.30); POTASSIUM 4.5 MMOL/L (3.6-5.0)
[2018-01-02 08:00] VITALS: BP 157/93
--- NOTE | 2018-01-02 08:01 | Cardiology Progress Note ---
Subjective Date Seen by Provider: Jan 02, 2018 Time Seen by Provider: 07:58 Subjective/Events-last exam Patient is feeling better, groin is healing better. Denied any chest pain. Review of Systems General: No Chills, No Night Sweats, No Fatigue, No Malaise, No Appetite, No Other HEENT: No Head Aches, No Visual Changes, No Eye Pain, No Ear Pain, No Dysphasia , No Sinus Congestion, No Post Nasal Drip, No Sore Throat, No Other Pulmonary: No Dyspnea, No Cough, No Pleuritic Chest Pain, No Other Cardiovascular: No: Chest Pain, Palpitations, Orthopnea, Paroxysmal Noc. Dyspnea, Edema, Lt Headedness, Other Objective-Cardiology Exam Last Set of Vital Signs Vital Signs 01/02/18 01/02/18 04:46 07:00 Temp 97.4 Pulse 69 Resp 18 B/P (MAP) 162/80 (107) Pulse Ox 96 O2 Delivery Room Air Capillary Refill : Less Than 3 Seconds I&O Intake and Output 01/02/18 00:00 Intake Total 2100 ml Output Total 0 ml Balance 2100 ml Intake Oral 1100 ml IV Total 1000 ml Output Urine Total 0 ml # Voids 2 # Bowel Movements 1 Daily Weight Change No General: Alert, Oriented X3, Cooperative HEENT: Atraumatic, PERRLA Neck: Supple, No JVD, No Thyromegaly Lungs: Clear to Auscultation, Normal Air Movement Heart: Regular Rate, Normal S1, Normal S2, No Murmurs Abdomen: Normal Bowel Sounds, Soft, No Tenderness, No Hepatosplenomegaly, No Masses Extremities: No Clubbing, No Cyanosis, No Edema, No Tenderness/Swelling, Other (Diminished pulse) Skin: No Rashes, No Breakdown, No Significant Lesion Neuro: Normal Gait, Normal Speech, Strength at 5/5 X4 Ext, Normal Tone, Sensation Intact Psych/Mental Status: Mental Status NL, Mood NL Results Lab Laboratory Tests 01/01/18 08:22 01/02/18 06:25 A/P-Cardiology Admission Diagnosis Nonhealing foot ulcer Peripheral arterial disease Coronary artery disease Hypertension Assessment/Plan Peripheral arterial disease, status post angioplasty as described below 1. Total occlusion of the anterior tibial artery, with unsuccessful attempt to cross the lesion. If patient continues to be with nonhealing ulcer I will consider antegrade access through the left groin and possible attempt for intervention. 2. Subtotal occlusion of the left peroneal artery was successful balloon angioplasty with excellent results with improvement in the flow down to the heel of the foot 3. Patent stent in the proximal and mid left SFA with moderate severe stenosis distally, consideration for intervention if patient continued to have nonhealing ulcer 4. Mild to moderate disease on the right lower extremity Coronary artery disease, clinically stable. Continue current medication Hypertension, controlled, continue on current medication monitor Hyperlipidemia, monitor lipids next Nonhealing foot ulcer. Status post intervention on the peroneal artery. Clinical Quality Measures DVT/VTE Risk/Contraindication: Risk Factor Score Per Nursin RFS Level Per Nursing on Admit: 2=Moderate JORDEN GREER MD Jan 02, 2018 08:00
[2018-01-02] MEDS ORDERED: ATOR80TA76 PO (08:02)
--- NOTE | 2018-01-02 08:03 | Discharge Inst-Post CATH ---
Discharge Inst-CATH Post Cardiac Cath D/C Inst Follow Up/Plan Appointment with Dr. Roy's office next week CARDIAC CATH DISCHARGE INSTRUCTIONS *Hold Metformin for 48 hours post heart cath. ACTIVITY * Go Home directly and rest. * Limit activity of the leg (or wrist if it was used) for 7 days including aerobics, swimming, jogging, bicycling, etc. * Restrict stair-climbing for 7 days if possible, if not, climb up with your non -cath leg, then bring together on the same step. * Avoid lifting, pushing, pulling or excessive movement of the affected extremity for 7 days. * Customary sexual activity may be resumed after 2 days-use caution not to use a position that strains or causes pain to the affected extremity. * No driving for 24 hours. * NO SMOKING. * Avoid straining for bowel movements for 7 days. * Gentle walking on level ground is allowed. * Returning to work will depend on the type of procedure and the results. Your doctor will discuss this with you. CALL YOUR DOCTOR FOR ANY OF THE FOLLOWING: *If bleeding from the puncture site occurs- Apply gentle pressure to site with clean cloth and call your doctor or EMS. * If a knot or lump forms under the skin, increases in size, or causes pain. * If bruising appears to be worsening or moving further down your leg instead of disappearing. * Temperature above 101 F. CARE OF YOUR GROIN INCISION; * Bruising or purple discoloration of the skin near the puncture site is common. * You may shower only, no bathtub bathing for 5 days. Be careful to avoid slipping as your leg may feel stiff. * If a closure device was used on your femoral artery, please see the attached guide regarding care of the device and your leg. * Leave the dressing on, until removed by office staff. CARE OF YOUR WRIST INCISION; * Bruising or purple discoloration of the skin near the puncture site is common. * You may shower. * DO NOT submerge wrist. * Leave dressing on, until removed by office staff.. JORDEN ROY MD Jan 02, 2018 08:03
[2018-01-02] MEDS: CARVEDILOL 3.125 MG (COREG) TABLET PO SCH (08:57)
[2018-01-02] MEDS ORDERED: CLOPIDOGREL 75 MG (PLAVIX) TABLET PO SCH (09:00)
[2018-01-02] MEDS ORDERED: AMIODARONE 200 MG (CORDARONE) TAB PO SCH (09:00)
[2018-01-02] MEDS ORDERED: ISOSORBIDE MONONITRATE 30 MG (IMDUR) TAB PO SCH (09:00)
[2018-01-02] MEDS ORDERED: ASPIRIN E.C. 81 MG (ECOTRIN) TAB PO SCH (09:00)
[2018-01-02] MEDS ORDERED: lisINopril 5 MG (PRINIVIL) TABLET PO SCH (09:00)
[2018-01-02 09:50] VITALS: BP 157/93
== END 2018-01-02 09:52 | disposition home or self-care (01) ==
LOC: CATH 07:39 → 4TH 11:40 → CATH 01-02 09:52
PROVIDERS: ATTEND Internal Medicine Cardiovascular Disease
DX: I70.234 Atherosclerosis of native arteries of right leg with ulceration of heel and midfoot (principal); E11.621 Type 2 diabetes mellitus with foot ulcer; L97.429 Non-pressure chronic ulcer of left heel and midfoot with unspecified severity; I25.10 Atherosclerotic heart disease of native coronary artery without angina pectoris; I13.0 Hypertensive heart and chronic kidney disease with heart failure and stage 1 through stage 4 chronic kidney disease, or unspecified chronic kidney disease; I50.9 Heart failure, unspecified; N18.9 Chronic kidney disease, unspecified; I25.5 Ischemic cardiomyopathy; E78.5 Hyperlipidemia, unspecified; I65.23 Occlusion and stenosis of bilateral carotid arteries; Z91.14 Patient's other noncompliance with medication regimen; Z95.810 Presence of automatic (implantable) cardiac defibrillator; Z87.891 Personal history of nicotine dependence; Z79.02 Long term (current) use of antithrombotics/antiplatelets; Z79.82 Long term (current) use of aspirin; Z79.4 Long term (current) use of insulin; Z79.899 Other long term (current) drug therapy
CPT/HCPCS: 36415; 71045; 75716; 80048; 80053; 80061; 85027; 85610; 85730; 87081

== ENCOUNTER → 2018-01-03 | Outpatient (CLI) | payer MEDICARE ==
[~2018-01-03] MED LIST changes: +AMIO200T4 PO; +ATOR80TA76 PO
[2018-01-03 10:47] LABS: BASOPHILS # (AUTO) 0.1 10^3/uL (0.0-0.1); BASOPHILS % (AUTO) 1 % (0-10); EOSINOPHILS # (AUTO) 0.3 10^3/uL (0.0-0.3); EOSINOPHILS % (AUTO) 4 % (0-10); HEMATOCRIT 43 % (40-54); HEMOGLOBIN 14.4 G/DL (13.3-17.7); LYMPHOCYTES # (AUTO) 1.4 X 10^3 (1.0-4.0); LYMPHOCYTES % (AUTO) 17 % (12-44); MEAN CORPUSCULAR HEMOGLOBIN 31 PG (25-34); MEAN CORPUSCULAR HGB CONC 34 G/DL (32-36); MEAN CORPUSCULAR VOLUME 94 FL (80-99); MEAN PLATELET VOLUME 10.7 FL (7.4-10.4); MONOCYTES # (AUTO) 0.5 X 10^3 (0.0-1.0); MONOCYTES % (AUTO) 6 % (0-12); NEUTROPHILS # (AUTO) 5.9 X 10^3 (1.8-7.8); NEUTROPHILS % (AUTO) 73 % (42-75); PLATELET COUNT 154 10^3/uL (130-400); RED CELL DISTRIBUTION WIDTH 15.3 % (10.0-14.5); WHITE BLOOD COUNT 8.2 10^3/uL (4.3-11.0)
[2018-01-03 11:05] LABS: ALBUMIN 3.8 GM/DL (3.2-4.5); CALCIUM 9.2 MG/DL (8.5-10.1); CREATININE SERUM 2.19 MG/DL (0.60-1.30); POTASSIUM 4.7 MMOL/L (3.6-5.0); TOTAL PROTEIN 7.9 GM/DL (6.4-8.2)
[2018-01-03 11:26] LABS: FREE T4 (FREE THYROXINE) 1.3 NG/DL (0.70-1.48)
== END ==
LOC: LAB 10:28
PROVIDERS: ATTEND Internal Medicine
DX: Z00.00 Encounter for general adult medical examination without abnormal findings (principal); E78.1 Pure hyperglyceridemia; E03.9 Hypothyroidism, unspecified; D50.8 Other iron deficiency anemias; E11.65 Type 2 diabetes mellitus with hyperglycemia; E78.00 Pure hypercholesterolemia, unspecified
CPT/HCPCS: 36415; 80053; 80061; 82728; 83036; 83540; 84439; 84443; 85025

== ENCOUNTER → 2018-01-09 | Outpatient (CLI) | payer MEDICARE | LOC: WOUNDCARE 08:07 | PROVIDERS: ATTEND Nurse Practitioner | DX: E11.621 Type 2 diabetes mellitus with foot ulcer (principal); L97.423 Non-pressure chronic ulcer of left heel and midfoot with necrosis of muscle; I50.21 Acute systolic (congestive) heart failure; N18.4 Chronic kidney disease, stage 4 (severe) | CPT/HCPCS: 11042 ==

== ENCOUNTER → 2018-01-16 | Outpatient (CLI) | payer MEDICARE | LOC: WOUNDCARE 08:13 | PROVIDERS: ATTEND Nurse Practitioner | DX: E11.621 Type 2 diabetes mellitus with foot ulcer (principal); L97.423 Non-pressure chronic ulcer of left heel and midfoot with necrosis of muscle; I50.21 Acute systolic (congestive) heart failure; N18.4 Chronic kidney disease, stage 4 (severe) | CPT/HCPCS: 11042 ==

== ENCOUNTER → 2018-01-23 | Outpatient (CLI) | payer MEDICARE | LOC: WOUNDCARE 08:08 | PROVIDERS: ATTEND Nurse Practitioner | DX: E11.621 Type 2 diabetes mellitus with foot ulcer (principal); L97.423 Non-pressure chronic ulcer of left heel and midfoot with necrosis of muscle; I50.21 Acute systolic (congestive) heart failure; N18.4 Chronic kidney disease, stage 4 (severe) | CPT/HCPCS: 11042 ==

== ENCOUNTER → 2018-01-30 | Outpatient (CLI) | payer MEDICARE | LOC: WOUNDCARE 08:19 | PROVIDERS: ATTEND Nurse Practitioner | DX: E11.621 Type 2 diabetes mellitus with foot ulcer (principal); L97.423 Non-pressure chronic ulcer of left heel and midfoot with necrosis of muscle; I50.21 Acute systolic (congestive) heart failure; N18.4 Chronic kidney disease, stage 4 (severe) | CPT/HCPCS: 11042 ==

== ENCOUNTER → 2018-02-06 | Outpatient (CLI) | payer MEDICARE | LOC: WOUNDCARE 08:19 | PROVIDERS: ATTEND Orthopaedic Surgery Hand Surgery | DX: E11.621 Type 2 diabetes mellitus with foot ulcer (principal); L97.423 Non-pressure chronic ulcer of left heel and midfoot with necrosis of muscle; I50.21 Acute systolic (congestive) heart failure; N18.4 Chronic kidney disease, stage 4 (severe) | CPT/HCPCS: 11042 ==

== ENCOUNTER → 2018-02-20 | Outpatient (CLI) | payer MEDICARE, OTHER | LOC: WOUNDCARE 08:06 | PROVIDERS: ATTEND Orthopaedic Surgery Hand Surgery | DX: E11.621 Type 2 diabetes mellitus with foot ulcer (principal); L97.423 Non-pressure chronic ulcer of left heel and midfoot with necrosis of muscle; I50.21 Acute systolic (congestive) heart failure; N18.4 Chronic kidney disease, stage 4 (severe); R60.0 Localized edema | CPT/HCPCS: 11042 ==

== ENCOUNTER 2018-02-24 10:24 | Outpatient (RCR) | payer MEDICARE, OTHER ==
[2017-12-25] MEDS: CATHETER FLUSH 10 ML SYR IV PRN (09:50)
[2017-12-25 10:00] VITALS: BP 143/84
[~2018-02-24] VITALS: Ht 177.8 cm; Wt 85.7 kg
[2018-02-24] MEDS: CATHETER FLUSH 10 ML SYR IV PRN (10:38)
[2018-02-24 10:40] VITALS: BP 147/92
[2018-02-24] MEDS ORDERED: NS 250 ML (IVPB) BAG IV ONE (16:30)
[2018-02-24] MEDS ORDERED: RECEIVED CONTRAST (Hold Metformin) IV SCH (16:30)
[2018-02-24] MEDS ORDERED: IOHEXOL 350 MG/ML 150 ML (OMNIPAQUE 350) VIAL IV ONE (16:30)
--- NOTE | 2018-02-24 17:44 | Diagnostic Imaging Report ---
INDICATION: Difficulty breathing and cough, history of left lung nodule CTA chest obtained with IV contrast bolus and axial slices and MIP reconstructions. COMPARISON made to 06/27/2016 The pulmonary parenchymal vessels are well opacified with no CT evidence of pulmonary emboli. There is no evidence of aortic dissection or aneurysm. There is no mediastinal or hilar adenopathy. There is no pleural or pericardial fluid. Visualized portions of the upper abdomen demonstrate diffuse fatty infiltration of the liver with no focal lesion otherwise seen. Lung parenchymal windows demonstrate no pulmonary parenchymal infiltrate. There is a calcified granuloma in the left lung in the lingular segment. There is minimal linear scarring or atelectasis in the left lower lobe anteriorly. IMPRESSION: No CT evidence of pulmonary emboli. No acute infiltrate or pulmonary parenchymal mass. There is profound fatty infiltration of the liver. There is mild linear scarring in the left lateral base. There is a calcified granuloma in the lingula. Dictated by: Dictated on workstation # [id number]
== END 2018-03-25 | disposition home or self-care (01) ==
LOC: SDC 10:24
PROVIDERS: ATTEND Surgery
DX: I87.2 Venous insufficiency (chronic) (peripheral) (principal); Z45.2 Encounter for adjustment and management of vascular access device
CPT/HCPCS: 71275; 96523

== ENCOUNTER → 2018-02-27 | Outpatient (CLI) | payer MEDICARE, OTHER | LOC: WOUNDCARE 08:04 | PROVIDERS: ATTEND Orthopaedic Surgery Hand Surgery | DX: E11.621 Type 2 diabetes mellitus with foot ulcer (principal); L97.423 Non-pressure chronic ulcer of left heel and midfoot with necrosis of muscle; I50.21 Acute systolic (congestive) heart failure; N18.4 Chronic kidney disease, stage 4 (severe); R60.0 Localized edema; I73.9 Peripheral vascular disease, unspecified | CPT/HCPCS: 11042 ==

== ENCOUNTER → 2018-03-06 | Outpatient (CLI) | payer MEDICARE | LOC: WOUNDCARE 08:05 | PROVIDERS: ATTEND Orthopaedic Surgery Hand Surgery | DX: E11.621 Type 2 diabetes mellitus with foot ulcer (principal); L97.423 Non-pressure chronic ulcer of left heel and midfoot with necrosis of muscle; I50.21 Acute systolic (congestive) heart failure; N18.4 Chronic kidney disease, stage 4 (severe); R60.0 Localized edema; I73.9 Peripheral vascular disease, unspecified | CPT/HCPCS: 11042 ==

== ENCOUNTER → 2018-03-13 | Outpatient (CLI) | payer MEDICARE | LOC: WOUNDCARE 08:14 | PROVIDERS: ATTEND Orthopaedic Surgery Hand Surgery | DX: E11.621 Type 2 diabetes mellitus with foot ulcer (principal); L97.423 Non-pressure chronic ulcer of left heel and midfoot with necrosis of muscle; I50.21 Acute systolic (congestive) heart failure; N18.4 Chronic kidney disease, stage 4 (severe); R60.0 Localized edema; I73.9 Peripheral vascular disease, unspecified | CPT/HCPCS: 11042; 87070; 87077; 87186; 87205 ==

== ENCOUNTER → 2018-03-20 | Outpatient (CLI) | payer MEDICARE | LOC: WOUNDCARE 08:09 | PROVIDERS: ATTEND Nurse Practitioner | DX: E11.621 Type 2 diabetes mellitus with foot ulcer (principal); L97.423 Non-pressure chronic ulcer of left heel and midfoot with necrosis of muscle; I50.21 Acute systolic (congestive) heart failure; N18.4 Chronic kidney disease, stage 4 (severe); R60.0 Localized edema; I73.9 Peripheral vascular disease, unspecified | CPT/HCPCS: 99213 ==

== ENCOUNTER → 2018-03-20 | Outpatient (CLI) | payer MEDICARE, OTHER ==
[2018-03-20 10:09] LABS: BASOPHILS % (AUTO) 1 % (0-10); EOSINOPHILS # (AUTO) 0.1 10^3/uL (0.0-0.3); EOSINOPHILS % (AUTO) 2 % (0-10); HEMATOCRIT 45 % (40-54); HEMOGLOBIN 14.9 G/DL (13.3-17.7); LYMPHOCYTES # (AUTO) 1.5 X 10^3 (1.0-4.0); LYMPHOCYTES % (AUTO) 18 % (12-44); MEAN CORPUSCULAR HEMOGLOBIN 30 PG (25-34); MEAN CORPUSCULAR HGB CONC 33 G/DL (32-36); MEAN CORPUSCULAR VOLUME 90 FL (80-99); MEAN PLATELET VOLUME 11.8 FL (7.4-10.4); MONOCYTES # (AUTO) 0.7 X 10^3 (0.0-1.0); MONOCYTES % (AUTO) 8 % (0-12); NEUTROPHILS # (AUTO) 5.9 X 10^3 (1.8-7.8); NEUTROPHILS % (AUTO) 72 % (42-75); PLATELET COUNT 148 10^3/uL (130-400); RED BLOOD COUNT 5.04 10^6/uL (4.35-5.85); RED CELL DISTRIBUTION WIDTH 16.8 % (10.0-14.5); WHITE BLOOD COUNT 8.2 10^3/uL (4.3-11.0)
[2018-03-20 10:31] LABS: ALBUMIN 3.4 GM/DL (3.2-4.5); CALCIUM 8.9 MG/DL (8.5-10.1); CREATININE SERUM 2.58 MG/DL (0.60-1.30); POTASSIUM 4.1 MMOL/L (3.6-5.0); TOTAL PROTEIN 7.1 GM/DL (6.4-8.2)
== END ==
LOC: LAB 09:50
PROVIDERS: ATTEND Internal Medicine
DX: I10 Essential (primary) hypertension (principal)
CPT/HCPCS: 36415; 80053; 85025

== ENCOUNTER 2018-03-31 14:18 | Inpatient (IN) | payer MEDICARE, OTHER ==
[~2018-03-31] VITALS: Ht 177.8 cm; Wt 94.3 kg
[2018-03-31 14:28] VITALS: BP 125/68
[2018-03-31] MEDS ORDERED: DOCUSATE SODIUM 100 MG (COLACE) CAP PO PRN (14:30)
[2018-03-31] MEDS ORDERED: MELATONIN 3 MG TABLET PO PRN (14:30)
[2018-03-31] MEDS ORDERED: LOPERAMIDE 2 MG (IMODIUM) CAP PO PRN (14:30)
[2018-03-31] MEDS ORDERED: diphenhydrAMINE 25 MG TAB (BENADRYL) PO PRN (14:30)
[2018-03-31] MEDS ORDERED: HYDROcodone/APAP 5 MG/325 MG (LORTAB) TAB PO PRN (14:30)
[2018-03-31] MEDS ORDERED: CALCIUM CARBONATE 500 MG (TUMS) TAB.CHEW PO PRN (14:30)
[2018-03-31] MEDS ORDERED: ONDANSETRON 4 MG/2 ML (SDV) Z0FRAN IVP PRN (14:30)
[2018-03-31] MEDS ORDERED: VANCOMYCIN INJECTION 1,000 MG in NS (IVPB) 250 ML IV SCH (14:30)
[2018-03-31] MEDS ORDERED: ACETAMINOPHEN 500 MG TAB (TYLENOL) PO PRN (14:30)
--- OUTSIDE RECORDS SUMMARY | 2018-03-31 14:33 | XMS REPORT | Clinical Summary ---
Author Author [facility] Organization [facility] Address Unknown Phone Unavailable Care Team Providers Care Cooker Helper Name Role Phone Madelaine Salinas Unavailable Unavailable Tanvir Lorenzo MD Unavailable Jemal Chaudhary PCP Source Comments Some departments are not documenting in the electronic medical record. If you do not see the information that you expected, contact Release of Information in the Health Information Management department at [phone] for further assistance in locating additional records.[facility] Allergies Comments Active Allergy Reactions Severity Noted Date Protamine UNKNOWN 06/02/2012 Simvastatin MUSCLE PAIN 08/06/2012 With large doses Oxycodone-Acetaminophen HALLUCINATION 06/02/2012 S Medications End Date Status Medication Sig Dispensed Refills Start Date Active isosorbide mononitrate SR Take 60 mg by 0 (IMDUR) 60 mg tablet mouth every morning. Active insulin detemir(+) Inject 32 0 (LEVEMIR) 100 unit/mL Units into Soln area(s) as directed at bedtime daily. Active buPROPion (WELLBUTRIN) 75 Take 150 mg 0 mg tablet by mouth daily. Active insulin aspart (NOVOLOG) Inject 36-38 0 100 unit/mL flexPEN Units into area(s) as directed three times daily with meals. Active clopiDOGrel (PLAVIX) 75 Take 1 Tab by 30 Tab 1 06/04/201 mg tabletIndications: CAD mouth daily. 3 (coronary artery disease), HTN (hypertension), Hypothyroidism, Diabetes mellitus (HCC), Chronic renal disease, DM (diabetes mellitus) (HCC), CKD (chronic kidney disease), Type II diabetes mellitus (HCC), S/P CABG (coronary artery bypass graft), JOSE (obstructive sleep apnea), Unspecified hypothyroidism, Type II or unspecified type diabetes mellitus without mention of complication, not stated as uncontrolled, Unspecified essential hypertension, Coronary atherosclerosis of unspecified type of vessel, soboba or graft, Postsurgical aortocoronary bypass status, Obstructive sleep apnea (adult) (pediatric), Chronic kidney disease, unspecified, Cholelithiasis, Vomiting, Calculus of gallbladder without mention of cholecystitis or obstruction, Vomiting alone Active nitroglycerin (NITROSTAT) for chest 25 Tab 3 0.4 mg tablet pain. Take 1 3 every 5 minutes x up to 3 times. Call 911 or go to ER if chest pain persists Active aspirin 325 mg tablet Take 325 mg 0 by mouth daily. Active levothyroxine (SYNTHROID) Take 175 mcg 0 175 mcg tablet by mouth daily. Active cloNIDine HCl (CATAPRESS) Take 0.1 mg 0 0.1 mg tablet by mouth daily as needed. When SBP >140 Active lovastatin(+) (MEVACOR) Take 60 mg by 0 40 mg tablet mouth at bedtime daily. Active HYDROcodone-acetaminophen Take 1 Tab by 0 (+) (VICODIN) 10-325 mg mouth twice tablet daily as needed. For pain Active Problems Problem Noted Date S/P laparoscopic cholecystectomy 09/04/2012 Type II diabetes mellitus 06/02/2012 S/P CABG (coronary artery bypass graft) 06/02/2012 JOSE (obstructive sleep apnea) 06/02/2012 CAD (coronary artery disease) Overview: 01/06/09- CABG x 4 ([facility]): Left internal thoracic artery-LAD. SVG-DIAG, [...] cancer, war ( psych issues) Social History Date Tobacco Use Types Packs/Day Years Used Quit: 02/23/2012 Former Smoker Cigarettes 35 Smokeless Tobacco: Never Used Alcohol Use Drinks/Week oz/Week Comments No Sex Assigned at Date Recorded Not on file Industry Job Start Date Occupation Not on file Not on file Not on file Travel End Travel History Travel Start No recent travel history available. Last Filed Vital Signs Time Taken Vital Sign Reading 10/28/2012 10:23 AM CDT Blood Pressure 120/70 10/28/2012 10:23 AM CDT Pulse 54 09/03/2012 10:30 AM CDT Temperature 36.2 C (97.1 F) 09/03/2012 10:30 AM CDT Respiratory Rate 14 08/16/2012 11:35 AM CDT Oxygen Saturation 99% - Inhaled Oxygen - Concentration 12/26/2012 10:31 AM CDT Weight 97.5 kg (215 lb) 12/26/2012 10:31 AM CDT Height 177.8 cm (5' 10") 12/26/2012 10:31 AM CDT Body Mass Index 30.85 Plan of Treatment Health Maintenance Due Date Last Done Comments HEPATITIS C SCREENING 1959 PHYSICAL (COMPREHENSIVE) 08/25/1966 EXAM HIV SCREENING 08/25/1974 DILATED EYE EXAM 08/25/1977 DTAP/TDAP VACCINES (1 - 08/25/1977 Tdap) FOOT EXAM 08/25/1977 HBA1C 08/25/1977 MICROALBUMIN 08/25/1977 PNEUMONIA VACCINE (DM) 08/25/1977 COLORECTAL CANCER 08/25/2009 SCREENING SHINGLES RECOMBINANT 08/25/2009 VACCINE (1 of 2) INFLUENZA VACCINE 10/23/2017 Results Not on filefrom Last 3 Months Insurance Payer Benefit Subscriber ID Type Phone Address Plan / Group MEDICARE MEDICARE xxxxxxxxxx Medicare PART A MEDICARE MEDICARE xxxxxxxxxx Medicare PART A AND B GENERIC COMMERCIAL GENERIC xxxxxxxxxx Indemnity COMMERCIAL Advance Directives Patient has advance care planning documents, and code status on file. For more information, please contact: [facility] [address] [place] [address] Date Inactivated Comments Code Status Date Activated 08/17/2012 5:10 AM Full Code 08/15/2012 3:24 PM Provider has discussed Code Status Yes w/Patient or Family? 06/05/2012 12:09 AM Full Code 06/02/2012 10:47 AM Provider has discussed Code Status No, more discussion w/Patient or Family? needed
[2018-03-31 15:15] LABS: BASOPHILS # (AUTO) 0.1 10^3/uL (0.0-0.1); BASOPHILS % (AUTO) 1 % (0-10); EOSINOPHILS # (AUTO) 0.2 10^3/uL (0.0-0.3); EOSINOPHILS % (AUTO) 2 % (0-10); HEMATOCRIT 40 % (40-54); HEMOGLOBIN 12.7 G/DL (13.3-17.7); LYMPHOCYTES # (AUTO) 1.1 X 10^3 (1.0-4.0); LYMPHOCYTES % (AUTO) 14 % (12-44); MEAN CORPUSCULAR HEMOGLOBIN 29 PG (25-34); MEAN CORPUSCULAR HGB CONC 32 G/DL (32-36); MEAN CORPUSCULAR VOLUME 91 FL (80-99); MEAN PLATELET VOLUME 11.9 FL (7.4-10.4); MONOCYTES # (AUTO) 0.5 X 10^3 (0.0-1.0); MONOCYTES % (AUTO) 7 % (0-12); NEUTROPHILS # (AUTO) 5.6 X 10^3 (1.8-7.8); NEUTROPHILS % (AUTO) 76 % (42-75); PLATELET COUNT 168 10^3/uL (130-400); RED BLOOD COUNT 4.41 10^6/uL (4.35-5.85); RED CELL DISTRIBUTION WIDTH 16.8 % (10.0-14.5); WHITE BLOOD COUNT 7.4 10^3/uL (4.3-11.0)
[2018-03-31] MEDS ORDERED: PIPERACILLIN/TAZO 4.5 GM/NS 100 ML IV NR ×2 (15:15)
[2018-03-31] MEDS: guaiFENesin/CODEINE (ROBITUSSIN AC) 10ML UDC PO PRN (15:38)
[2018-03-31 15:41] LABS: ALBUMIN 2.8 GM/DL (3.2-4.5); BILIRUBIN,TOTAL 0.6 MG/DL (0.1-1.0); CALCIUM 8.2 MG/DL (8.5-10.1); CREATININE SERUM 3.12 MG/DL (0.60-1.30); POTASSIUM 4.8 MMOL/L (3.6-5.0); TOTAL PROTEIN 6.4 GM/DL (6.4-8.2)
--- NOTE | 2018-03-31 15:43 | Diagnostic Imaging Report ---
INDICATION: Left leg edema. TECHNIQUE: Grayscale with color-flow and Doppler waveform evaluation of the left lower extremity deep venous system. CORRELATION STUDY: None FINDINGS: Color and grayscale sonographic images demonstrate no intraluminal defect within the visualized portion of the common femoral, superficial femoral and/or popliteal veins to suggest thrombus formation. These vessels demonstrate normal response to compression and augmentation. The distal peroneal veins however are not visualized. No soft tissue fluid collection. IMPRESSION: 1. Negative for deep venous thrombosis of the left leg. Dictated by: Dictated on workstation # [id number]
[2018-03-31] MEDS: ALPRAZolam 0.25 MG (XANAX) TAB PO PRN (15:46)
--- NOTE | 2018-03-31 15:58 | History & Physical-Hospitalist ---
IVET SOLANO DO 03/31/18 1558: History of Present Illness HPI/Chief Complaint CC: Left diabetic ulcer infection HPI: This is a 57-year-old white male clinic patient of [facility] with a history of stage IV renal insufficiency, diabetes mellitus insulin-dependent and severe peripheral vascular disease with heart disease that has failed wound care for the past 4 years on the left foot and needs a left zzood-aiu-nwgy amputation but he was admitted for modification of risk factors including shortness of breath and wheezing found to have elevated BNP needing IV diuresis. Appreciate cardiology consultation and Dr. Chicas will plan on left below the knee amputation on Saturday. Patient is not interested in dialysis if that ever would be a requirement. Source: patient Exam Limitations: no limitations Date Seen 04/01/18 Time Seen by a Provider: 08:30 Attending Physician Ivet Solano DO PCP Ivet Solano DO Referring Physician Date of Admission Mar 31, 2018 at 14:18 Home Medications & Allergies Home Medications Reviewed patient Home Medication Reconciliation performed by pharmacy medication reconciliations aviation technician aircraft and/or nursing. Patients Allergies have been reviewed. Allergies Allergies Coded Allergies oxycodone HCl (Verified Allergy, Unknown, HAS RECEIVED HYDROMORPHONE W/O ISSUE , 01/01/18) protamine (Verified Allergy, Unknown, 01/01/18) Past Udsirwh-Nmdkdm-Dyvlah Hx Past Med/Social Hx: Reviewed Nursing Past Med/Soc Hx, Reviewed and Corrections made Patient Social History Marrital Status: single Employed/Student: unemployed Alcohol Use: Occasionally Uses Number of Drinks Today: AA Alcohol Beverage of Choice: Beer Recreational Drug Use: No Smoking Status: Current Everyday Smoker Former Smoker, Quit: May 29, 2017 Type Used: Cigars Physical Abuse Screen: No Sexual Abuse: No Recent Foreign Travel: No Contact w/other who traveled: No Recent Hopitalizations: No Immunizations Up To Date Tetanus Booster (TDap): Unknown Seasonal Allergies Seasonal Allergies: No Past Medical History Surgeries: CABG, Gallbladder, Orthopedic, Vascular Surgery Currently Using CPAP: No Currently Using BIPAP: No Cardiac: Chronic Edema/Swelling, Coronary Artery Disease, Heart Attack, High Cholesterol, Hypertension, Peripheral Vascular Neurological: Neuropathy Reproductive: No Sexually Transmitted Disease: No HIV/AIDS: No Genitourinary: Renal Failure Gastrointestinal: Gastroesophageal Reflux Musculoskeletal: Amputee, Arthritis, Chronic Back Pain Endocrine: Diabetes, Insulin dep, Hypothyroidsim HEENT: Cataract Loss of Vision: Left Hearing Impairment: Denies Psychosocial: Sleep Difficulties Skin/Integumentary: Recent Skin Changes History of Blood Disorders: No Adverse Reaction to Blood Turner: No Family History Alzheimer's disease 19 FATHER BLOOD Cardiovascular disease 19 MOTHER Diabetes mellitus 19 FATHER G8 SISTER FH: blood disorder G8 SISTER (SPECULATION) Hypertension 19 MOTHER Myocardial infarction 19 MOTHER Review of Systems EENTM: no symptoms reported Respiratory: cough, short of breath Gastrointestinal: loss of appetite Genitourinary: no symptoms reported Musculoskeletal: no symptoms reported Skin: no symptoms reported Psychiatric/Neurological: No Symptoms Reported All Other Systems Reviewed Negative Unless Noted: Yes Physical Exam Physical Exam Vital Signs Vital Signs - First Documented 03/31/18 03/31/18 14:28 16:43 Temp 99.1 Pulse 79 Resp 20 B/P (MAP) 125/68 (87) Pulse Ox 99 O2 Delivery Room Air FiO2 21 Capillary Refill : Height, Weight, BMI Height: 5'10.00" Weight: 208lbs. 0.0oz. 94.801485cc; 29.8 BMI Method:Stated General Appearance: No Apparent Distress, WD/WN, Chronically ill Eyes: Bilateral Eye Normal Inspection, Bilateral Eye PERRL HEENT: PERRL/EOMI, Normal ENT Inspection, Pharynx Normal Neck: Full Range of Motion, Normal Inspection, Non Tender, Supple, Carotid Bruit Respiratory: Chest Non Tender, Normal Breath Sounds, No Accessory Muscle Use, No Respiratory Distress, Decreased Breath Sounds Cardiovascular: Regular Rate, Rhythm, No Edema, No Gallop, No JVD, No Murmur, Normal Peripheral Pulses Gastrointestinal: Normal Bowel Sounds, No Organomegaly, No Pulsatile Mass, Non Tender, Soft Back: Normal Inspection, No CVA Tenderness, No Vertebral Tenderness Extremity: Normal Capillary Refill, Normal Inspection, Normal Range of Motion, Non Tender, No Calf Tenderness, No Pedal Edema, Other (left foot erythema and drainage) Neurologic/Psychiatric: Alert, Oriented x3, No Motor/Sensory Deficits, Normal Mood/Affect Skin: Normal Color, Warm/Dry Lymphatic: No Adenopathy Results Results/Procedures Labs Laboratory Tests 03/31/18 14:50 04/01/18 03:10 Patient resulted labs reviewed. Assessment/Plan Admission Diagnosis Assessment: Infected left foot diabetic ulcer in need of left below the knee amputation tomorrow by Dr. Chicas Congestive heart failure with elevated BNP Chronic renal failure and not a dialysis candidate due to his refusal if that becomes a necessity Severe peripheral vascular disease failed intervention for revascularization of the lower extremities and failed wound care for 4 years CAD previous bypass surgery Hypertension Hyperlipidemia Smoker Plan: IV diuresis Monitor creatinine IV antibiotics renal dose DVT prophylaxis Left below the knee amputation tomorrow Admission Status: Inpatient Order (span 2 midnights) Reason for Inpatient Admission: Infected diabetic ulcer in need of eswmn-hfi-eyuy amputation Diagnosis/Problems Diagnosis/Problems (1) Diabetic ulcer of left foot Status: Acute Qualifiers: Diabetic foot ulcer location: unspecified part of foot Diabetes mellitus type: type 2 Non-pressure ulcer stage: with necrosis of bone Qualified Codes : E11.621 - Type 2 diabetes mellitus with foot ulcer; L97.524 - Non-pressure chronic ulcer of other part of left foot with necrosis of bone (2) Gangrene Status: Acute (3) Dyspnea Status: Acute Qualifiers: Dyspnea type: dyspnea on exertion Qualified Codes: R06.09 - Other forms of dyspnea (4) Ischemic cardiomyopathy Status: Chronic (5) PVD (peripheral vascular disease) Status: Chronic (6) CKD (chronic kidney disease) stage 3, GFR 30-59 ml/min Status: Chronic (7) Anemia in chronic kidney disease Status: Chronic Qualifiers: Chronic kidney disease stage: stage 4 (severe) Qualified Codes: N18.4 - Chronic kidney disease, stage 4 (severe); D63.1 - Anemia in chronic kidney disease (8) Essential (primary) hypertension Status: Chronic (9) Insulin dependent diabetes mellitus Status: Chronic EDITH TRONCOSO MEDICAL STUDENT 03/31/18 1617: History of Present Illness HPI/Chief Complaint 57 year old male with Hx of DM, CAD, CHF, CKD, PVD admitted for SOB and possible PNA. Pt states he has felt short of breath for the last 2-3 weeks and has had a cough. Pt states he has some chest tightness with his cough but no chest pain. Pt states he saw Dr. Chicas today for evaluation for left BKA scheduled for tomorrow. Time Seen by a Provider: 15:15 Past Zwhncec-Bkgzkk-Ddkbxh Hx Family History Alzheimer's disease 19 FATHER BLOOD Cardiovascular disease 19 MOTHER Diabetes mellitus 19 FATHER G8 SISTER FH: blood disorder G8 SISTER (SPECULATION) Hypertension 19 MOTHER Myocardial infarction 19 MOTHER Review of Systems Constitutional: No chills, No fever Respiratory: cough, short of breath Gastrointestinal: No abdominal pain, No diarrhea, No nausea, No vomiting Genitourinary: no symptoms reported Musculoskeletal: no symptoms reported Skin: no symptoms reported Physical Exam Physical Exam General Appearance: WD/WN Eyes: Bilateral Eye PERRL, Bilateral Eye EOMI HEENT: PERRL/EOMI Neck: Full Range of Motion, Normal Inspection Respiratory: No Respiratory Distress, Decreased Breath Sounds Cardiovascular: Regular Rate, Rhythm Gastrointestinal: Non Tender, Soft Neurologic/Psychiatric: Alert, Oriented x3, Normal Mood/Affect Assessment/Plan Admission Diagnosis Admission Status: Inpatient Order (span 2 midnights) Assessment and Plan Pneumonia History of CAD History of CHF History of CKD History of PVD History of DM IV abx duoneb CXR to track PNA continue home meds for chronic conditions IVET SOLANO DO Mar 31, 2018 15:58 EDITH TRONCOSO MEDICAL STUDENT Mar 31, 2018 16:17
[2018-03-31 16:00] VITALS: BP 148/88
[2018-03-31] MEDS ORDERED: VANCOMYCIN 2000 MG/NS 500 ML IVPB IV NR ×2 (16:15)
--- NOTE | 2018-03-31 16:17 | NUR ---
VANCOMYCIN DOSING: BASED ON ADJ BW 81.5 & SCr OF 3.12, EST CrCl 30 LOADING DOSE = 2,000 MG MAIN DOSE = 1,500 MG VANCOMYCIN TROUGH ORDERED FOR 04/02/18 @ 15:00 IF TROUGH GREATER THAN 20 HOLD 04/02/18 16:00 DOSE
--- NOTE | 2018-03-31 16:27 | Consultation-Cardiology ---
HPI-Cardiology Cardiology Consultation Date of Consultation 03/31/18 Date of Admission Time Seen by Provider: 16:24 Indication: coronary artery disease HPI 57 years old gentleman with history of coronary artery disease extensive peripheral vascular disease, had ischemic foot ulcer that is recurrent, treated multiple time with intervention with improvement of the ulcer, on the latest ulcer there is no improvement, persistent with gangrenous changes. Patient was scheduled for VT admitted. Has extensive cardiac history as described below. He admitted having some chest pain with coughing. Mild dyspnea. No palpitation or syncope Home Medications & Allergies Allergies: Coded Allergies: oxycodone HCl (Verified Allergy, Unknown, HAS RECEIVED HYDROMORPHONE W/O ISSUE, 01/01/18) protamine (Verified Allergy, Unknown, 01/01/18) Home Medication List Reviewed: Yes ITT-Ifbnjd-Dcsdmv Hx Patient Social History Alcohol Use: Occasionally Uses Recreational Drug Use: No Former smoker/When Quit: Jun 23, 2012 Type Used: Cigars Recent Foreign Travel: No Recent Hopitalizations: No Physical Abuse Screen: No Sexual Abuse: No Immunizations Up To Date Tetanus Booster (TDap): Unknown Past Medical History past medical history as described below Family Medical History Family History: Alzheimer's disease 19 FATHER BLOOD Cardiovascular disease 19 MOTHER Diabetes mellitus 19 FATHER G8 SISTER FH: blood disorder G8 SISTER (SPECULATION) Hypertension 19 MOTHER Myocardial infarction 19 MOTHER Review of Systems Constitutional: see HPI, malaise, weakness EENTM: see HPI, no symptoms reported Respiratory: see HPI, cough, dyspnea on exertion; No hemoptysis, No orthopnea, No phlegm, No short of breath, No stridor, No wheezing, No other Cardiovascular: no symptoms reported, see HPI, chest pain; No edema, No Hx of Intervention, No palpitations, No syncope, No vascular heart diseas, No other Gastrointestinal: no symptoms reported, see HPI Genitourinary: no symptoms reported, see HPI Musculoskeletal: see HPI, joint pain, other (ischemic ulcer) Skin: no symptoms reported, see HPI Psychiatric/Neurological: See HPI, Other (ischemic gangrenous ulcer) Reviewed Test Results Reviewed Test Results Lab Laboratory Tests Test 03/31/18 14:50 Range/Units White Blood Count 7.4 4.3-11.0 10^3/uL Red Blood Count 4.41 4.35-5.85 10^6/uL Hemoglobin 12.7 L 13.3-17.7 G/DL Hematocrit 40 40-54 % Mean Corpuscular Volume 91 80-99 FL Mean Corpuscular Hemoglobin 29 25-34 PG Mean Corpuscular Hemoglobin Concent 32 32-36 G/DL Red Cell Distribution Width 16.8 H 10.0-14.5 % Platelet Count 168 130-400 10^3/uL Mean Platelet Volume 11.9 H 7.4-10.4 FL Neutrophils (%) (Auto) 76 H 42-75 % Lymphocytes (%) (Auto) 14 12-44 % Monocytes (%) (Auto) 7 0-12 % Eosinophils (%) (Auto) 2 0-10 % Basophils (%) (Auto) 1 0-10 % Neutrophils # (Auto) 5.6 1.8-7.8 X 10^3 Lymphocytes # (Auto) 1.1 1.0-4.0 X 10^3 Monocytes # (Auto) 0.5 0.0-1.0 X 10^3 Eosinophils # (Auto) 0.2 0.0-0.3 10^3/uL Basophils # (Auto) 0.1 0.0-0.1 10^3/uL Sodium Level 137 135-145 MMOL/L Potassium Level 4.8 3.6-5.0 MMOL/L Chloride Level 102 98-107 MMOL/L Carbon Dioxide Level 25 21-32 MMOL/L Anion Gap 10 5-14 MMOL/L Blood Urea Nitrogen 40 H 7-18 MG/DL Creatinine 3.12 H 0.60-1.30 MG/DL Estimat Glomerular Filtration Rate 21 BUN/Creatinine Ratio 13 Glucose Level 384 H 70-105 MG/DL Lactic Acid Level 1.34 0.50-2.00 MMOL/L Calcium Level 8.2 L 8.5-10.1 MG/DL Corrected Calcium 9.2 8.5-10.1 MG/DL Total Bilirubin 0.6 0.1-1.0 MG/DL Aspartate Amino Transf (AST/SGOT) 29 5-34 U/L Alanine Aminotransferase (ALT/SGPT) 20 0-55 U/L Alkaline Phosphatase 74 40-136 U/L Troponin I 0.042 <0.028 NG/ML B-Type Natriuretic Peptide 2358.0 H <100.0 PG/ML Total Protein 6.4 6.4-8.2 GM/DL Albumin 2.8 L 3.2-4.5 GM/DL Physical Exam Vital Signs Vital Signs - First Documented 03/31/18 14:28 Temp 99.1 Pulse 79 Resp 20 B/P (MAP) 125/68 (87) Pulse Ox 99 O2 Delivery Room Air Capillary Refill : Height, Weight, BMI Height: 5'10.00" Weight: 208lbs. 0.0oz. 94.084816zc; 29.8 BMI Method:Stated General Appearance: No Apparent Distress, WD/WN Eyes: Bilateral Eye Normal Inspection, Bilateral Eye PERRL, Bilateral Eye EOMI HEENT: PERRL/EOMI, TMs Normal, Normal ENT Inspection, Pharynx Normal Neck: Full Range of Motion, Normal Inspection, Non Tender, Supple, Carotid Bruit Respiratory: Chest Non Tender, Normal Breath Sounds, No Accessory Muscle Use, No Respiratory Distress, Crackles Cardiovascular: Regular Rate, Rhythm, No Edema, No JVD, Normal Peripheral Pulses, Systolic Murmur, Gallop/S3 Gastrointestinal: Normal Bowel Sounds, No Organomegaly, No Pulsatile Mass, Non Tender, Soft Back: Normal Inspection, No CVA Tenderness, No Vertebral Tenderness Extremity: No Pedal Edema, Swelling, Other (ischemic ulcer with diminished pulse) Neurologic/Psychiatric: Alert, Oriented x3, No Motor/Sensory Deficits, Normal Mood/Affect Skin: Normal Color, Warm/Dry Lymphatic: No Adenopathy A/P-Cardiology Admission Diagnosis Ischemic foot ulcer Peripheral arterial disease Coronary artery disease Congestive heart failure, chronic compensated left ventricular systolic dysfunction, ischemic cardiomyopathy with ejection fraction 20-25 percent Assessment/Plan Nonhealing foot ulcer, recurrent, extensive peripheral arterial disease, underwent multiple interventions in the past, appear to be failing percutaneous intervention. Planning for BKA. Coronary artery disease, history of CABG 4 in 2008 with cardiac catheterization June 02, [address] Arvizu revealing severe three-vessel [place] coronary artery disease with non-bypassed RCA, patent OSBORNE to LAD, patent vein graft to first diag, patent vein graft to first OM. There was occluded jump graft to the second obtuse marginal branch with successful PCI using bare-metal vision stent 3.0 x 28 mm to the second OM. At that time was reported patient staged intervention to the right and third OM branch after gallbladder removal by Dr. Arvizu, had stress test done at within then and no further intervention was made. Patient was to be scheduled for [facility] with intervention after healing of Left foot ulcer, however, patient did not follow up, Cardiac catheterization was carried out by Dr. Busch in January 2015 and reported as patent OSBORNE to the LAD vein graft to the diagonal artery and vein graft to the obtuse marginal artery, small vessel disease distally, the right coronary artery has severe diffuse disease, Dr. Busch felt that it is high risk for intervention at this time, medical therapy is recommended. Patient will require significant amount of stenting with limited benefit. Continue to monitor at this time Significant peripheral arterial disease, multiple intervention by Dr. Beebe in the past. Extensive workup in the past, angiogram was done on May 30, 2016 which showed on the right side subtotal occlusion of the anterior tibial artery , severe disease at the posterior tibial and peroneal artery and distal popliteal artery successful balloon angioplasty to the anterior tibial artery using 2.0 then 3.0 balloon with excellent results, balloon angioplasty to the popliteal artery using Lutonix 4.018 mm with excellent results. Underwent complex intervention in June 2016, on July 02, 2016 patient was noted to have total occlusion of the anterior tibial artery of the left leg with balloon angioplasty using 3x100 balloon with excellent results. Return on July 04, 2016 and underwent intervention on the right lower extremity using Lutonix to the distal SFA 6 time 150 mm with excellent results. Patient has small vessel disease distally. Most recently underwent peripheral angiogram on May 01, 2017 after having a nonhealing wound to the left heel. Was found to have total occlusion of the left anterior tibial artery, complex intervention using multiple wires and balloons with excellent results. Repeat angiogram was done on January 01, 2018 showing total occlusion of the anterior tibial artery with unsuccessful attempt to cross the lesion, I was able to do balloon angioplasty for severe disease of the peroneal artery. Patient still have severe stenosis at the distal SFA. Patient was referred to [facility], underwent angiogram on January 10, 2018 had left SFA angioplasty with drug-coated balloon, atherectomy of the anterior tibial artery with jet stream followed by angioplasty of the anterior tibial artery and peroneal artery with drug-coated balloons, angioplasty to the dorsalis pedis. Unsuccessful posterior tibial artery cannulation. Congestive heart failure, ischemic cardiomyopathy, persistent cardiomyopathy with ejection fraction 20-25 percent, last echocardiogram was done in July 2017. Status post single-chamber ICD implant. continue to monitor Paroxysmal atrial fibrillation-patient noted to have episodes of atrial fibrillation on his first ICD interrogation, longest episode up to one hour. continue on current medication including amiodarone and monitor History of chronic renal insufficiency, followed by senior strategy analyst, monitor renal function Tobaccoism, reports recently quit smoking. Educated on importance of smoking cessation. History of port placement on the right side, status post retrieval after fractured port in June 2016 Hypertension, Restart home medication monitor Hyperlipidemia, was started on Lipitor 80 mg daily. Continue to monitor Diabetes mellitus, followed and monitored by primary care physician. Mild bilateral nonobstructive carotid artery stenosis, last carotid ultrasound was done in December 2017, continue to monitor next Preoperative cardiac evaluation, patient is considered at intermediate to high risk for perioperative cardiac vascular complications, decision regarding the surgery, risks versus benefit is deferred to the surgeon. JORDEN GREER MD Mar 31, 2018 16:27
--- NOTE | 2018-03-31 16:30 | Diagnostic Imaging Report ---
INDICATION: Cough x 3 weeks. EXAMINATION: PA and lateral chest. FINDINGS: The patient has a unipolar pacemaker with IACD. There are postop changes from CABG surgery. The right IJ Port-A-Cath tip projects over the SVC. The heart size and pulmonary vascularity are normal. The lungs are clear. There are no effusions or pneumothoraces. IMPRESSION: No acute abnormalities in the chest. Dictated by: Dictated on workstation # [id number]
[2018-03-31] MEDS ORDERED: CATHETER FLUSH 10 ML SYR IV PRN (17:00)
[2018-03-31] MEDS: ENOXAPARIN 40 MG/0.4 ML (LOVENOX) SYR SC SCH (17:05)
[2018-03-31] MEDS: FUROSEMIDE 40 MG/4 ML INJ (LASIX) IVP SCH (17:05)
[2018-03-31] MEDS ORDERED: inSUlin (REGULAR) HUMAN 1 UNIT/0.01 ML (CHARGE PER UNIT) ONE ×2 (17:07→17:11)
[2018-03-31] MEDS ORDERED: inSUlin ASPART (NovoLOG) 1 UNIT/0.01 ML (CHARGE PER UNIT) SC SCH ×2 (17:15→17:30)
[2018-03-31] MEDS ORDERED: RT-ALBUTEROL/IPRATROPIUM 3 ML (DUONEB) VIAL ONE (17:29)
[2018-03-31] MEDS: RT-ALBUTEROL/IPRATROPIUM 3 ML (DUONEB) VIAL INH SCH ×2 (17:35→20:12)
--- NOTE | 2018-03-31 17:37 | NUR ---
PT C/O SOA DUE TO STUFFED UP NOSE. Addendum: 03/31/18 at 1738 by MARINE ALBERT RT Amended: Links added.
[2018-03-31] MEDS: inSUlin ASPART (NovoLOG) 1 UNIT/0.01 ML (CHARGE PER UNIT) SC SCH ×2 (18:51→21:46)
[2018-03-31] MEDS ORDERED: RT-ALBUTEROL/IPRATROPIUM 3 ML (DUONEB) VIAL INH PRN (19:30)
[2018-03-31 20:10] VITALS: BP 134/81
[2018-03-31] MEDS: PIPERACILLIN SODIUM/TAZOBACTAM 4.5 GM in NS (IVPB) 100 ML IV SCH (21:00)
[2018-03-31] MEDS: CARVEDILOL 3.125 MG (COREG) TABLET PO SCH (21:01)
[2018-03-31] MEDS: ATORVASTATIN 80 MG (LIPITOR) TABLET PO SCH (21:01)
[2018-03-31] MEDS: POLYETHYLENE GLYCOL 17 GM (MIRALAX) PACK PO SCH (21:01)
[2018-03-31] MEDS: fentaNYL INJECTION 100 MCG/2 ML AMP IVP PRN (21:12)
[2018-03-31] MEDS: CATHETER FLUSH 10 ML SYR IV SCH (22:11)
[2018-04-01] VITALS: BP 132/83
[2018-04-01] MEDS: fentaNYL INJECTION 100 MCG/2 ML AMP IVP PRN ×3 (03:08→22:33)
[2018-04-01 03:20] LABS: BASOPHILS # (AUTO) 0.1 10^3/uL (0.0-0.1); BASOPHILS % (AUTO) 1 % (0-10); EOSINOPHILS # (AUTO) 0.2 10^3/uL (0.0-0.3); EOSINOPHILS % (AUTO) 3 % (0-10); HEMATOCRIT 39 % (40-54); HEMOGLOBIN 12.6 G/DL (13.3-17.7); LYMPHOCYTES % (AUTO) 15 % (12-44); MEAN CORPUSCULAR HEMOGLOBIN 30 PG (25-34); MEAN CORPUSCULAR HGB CONC 33 G/DL (32-36); MEAN CORPUSCULAR VOLUME 90 FL (80-99); MEAN PLATELET VOLUME 11.3 FL (7.4-10.4); MONOCYTES # (AUTO) 0.4 X 10^3 (0.0-1.0); MONOCYTES % (AUTO) 6 % (0-12); NEUTROPHILS # (AUTO) 5.2 X 10^3 (1.8-7.8); NEUTROPHILS % (AUTO) 75 % (42-75); PLATELET COUNT 173 10^3/uL (130-400); RED BLOOD COUNT 4.27 10^6/uL (4.35-5.85); RED CELL DISTRIBUTION WIDTH 16.9 % (10.0-14.5); WHITE BLOOD COUNT 6.9 10^3/uL (4.3-11.0)
[2018-04-01 03:55] LABS: ALBUMIN 2.7 GM/DL (3.2-4.5); BILIRUBIN,TOTAL 0.6 MG/DL (0.1-1.0); CALCIUM 8.4 MG/DL (8.5-10.1); CREATININE SERUM 2.96 MG/DL (0.60-1.30); MAGNESIUM 1.9 MG/DL (1.8-2.4); POTASSIUM 4.1 MMOL/L (3.6-5.0); TOTAL PROTEIN 5.8 GM/DL (6.4-8.2)
[2018-04-01 04:00] VITALS: BP 139/75
[2018-04-01] MEDS: PIPERACILLIN SODIUM/TAZOBACTAM 4.5 GM in NS (IVPB) 100 ML IV SCH ×3 (06:02→22:33)
[2018-04-01] MEDS: CATHETER FLUSH 10 ML SYR IV SCH ×3 (06:03→22:35)
[2018-04-01] MEDS: FUROSEMIDE 40 MG/4 ML INJ (LASIX) IVP SCH ×2 (06:03→17:07)
[2018-04-01] MEDS: LEVOTHYROXINE 100 MCG (LEVOTHROID) TAB PO SCH (06:03)
[2018-04-01] MEDS: inSUlin ASPART (NovoLOG) 1 UNIT/0.01 ML (CHARGE PER UNIT) SC SCH ×4 (06:06→22:34)
--- NOTE | 2018-04-01 07:20 | Cardiology Progress Note ---
Subjective Date Seen by Provider: Apr 01, 2018 Time Seen by Provider: 07:15 Subjective/Events-last exam patient is laying down in bed, sleepy, denied any active pain. Review of Systems General: No Chills, No Night Sweats, No Fatigue, No Malaise, No Appetite, No Other HEENT: No Head Aches, No Visual Changes, No Eye Pain, No Ear Pain, No Dysphasia , No Sinus Congestion, No Post Nasal Drip, No Sore Throat, No Other Pulmonary: Dyspnea; No Cough, No Pleuritic Chest Pain, No Other Cardiovascular: No: Chest Pain, Palpitations, Orthopnea, Paroxysmal Noc. Dyspnea, Edema, Lt Headedness, Other Focused Exam Lactate Level 03/31/18 14:50: Lactic Acid Level 1.34 Objective-Cardiology Exam Last Set of Vital Signs Vital Signs 03/31/18 04/01/18 16:43 04:00 Temp 97.7 Pulse 68 Resp 18 B/P (MAP) 139/75 (96) Pulse Ox 96 O2 Delivery Room Air FiO2 21 Capillary Refill : I&O Intake and Output 04/01/18 00:00 Intake Total 1220 ml Output Total 650 ml Balance 570 ml Intake Oral 500 ml IV Total 720 ml Output Urine Total 650 ml General: Alert, Oriented X3, Cooperative HEENT: Atraumatic, PERRLA Neck: Supple, No JVD, No Thyromegaly Lungs: Clear to Auscultation, Normal Air Movement Heart: Regular Rate, Normal S1, Normal S2, No Murmurs Abdomen: Normal Bowel Sounds, Soft, No Tenderness, No Hepatosplenomegaly, No Masses Extremities: No Clubbing, No Cyanosis, Other (nonhealing ulcer) Skin: No Rashes, No Breakdown, No Significant Lesion Neuro: Normal Gait, Normal Speech, Normal Tone, Sensation Intact Psych/Mental Status: Mental Status NL, Mood NL Results Lab Laboratory Tests 03/31/18 14:50 04/01/18 03:10 A/P-Cardiology Admission Diagnosis Ischemic foot ulcer Peripheral arterial disease Coronary artery disease Congestive heart failure, chronic compensated left ventricular systolic dysfunction, ischemic cardiomyopathy with ejection fraction 20-25 percent Assessment/Plan Nonhealing foot ulcer, recurrent, extensive peripheral arterial disease, underwent multiple interventions in the past, failing percutaneous intervention. Planning for BKA. Coronary artery disease, history of CABG 4 in 2008 with cardiac catheterization June 02, [address] Arvizu revealing severe three-vessel [place] coronary artery disease with non-bypassed RCA, patent OSBORNE to LAD, patent vein graft to first diag, patent vein graft to first OM. There was occluded jump graft to the second obtuse marginal branch with successful PCI using bare-metal vision stent 3.0 x 28 mm to the second OM. At that time was reported patient staged intervention to the right and third OM branch after gallbladder removal by Dr. Arvizu, had stress test done at [facility] within then and no further intervention was made. Patient was to be scheduled for [facility] with intervention after healing of Left foot ulcer, however, patient did not follow up, Cardiac catheterization was carried out by Dr. Busch in January 2015 and reported as patent OSBORNE to the LAD vein graft to the diagonal artery and vein graft to the obtuse marginal artery, small vessel disease distally, the right coronary artery has severe diffuse disease, Dr. Busch felt that it is high risk for intervention at this time, medical therapy is recommended. Patient will require significant amount of stenting with limited benefit. Continue to monitor at this time Significant peripheral arterial disease, multiple intervention by Dr. Beebe in the past. Extensive workup in the past, angiogram was done on May 30, 2016 which showed on the right side subtotal occlusion of the anterior tibial artery , severe disease at the posterior tibial and peroneal artery and distal popliteal artery successful balloon angioplasty to the anterior tibial artery using 2.0 then 3.0 balloon with excellent results, balloon angioplasty to the popliteal artery using Lutonix 4.018 mm with excellent results. On July 02, 2016 patient was noted to have total occlusion of the anterior tibial artery of the left leg with balloon angioplasty using 3x100 balloon with excellent results. Return on July 04, 2016 and underwent intervention on the right lower extremity using Lutonix to the distal SFA 6 time 150 mm with excellent results. Patient has small vessel disease distally. On May 01, 2017 after having a nonhealing wound to the left heel. Was found to have total occlusion of the left anterior tibial artery, complex intervention using multiple wires and balloons with excellent results. Repeat angiogram was done on January 01, 2018 showing total occlusion of the anterior tibial artery with unsuccessful attempt to cross the lesion, I was able to do balloon angioplasty for severe disease of the peroneal artery. Patient still have severe stenosis at the distal SFA. Patient was referred to [facility], underwent angiogram on January 10, 2018 had left SFA angioplasty with drug-coated balloon, atherectomy of the anterior tibial artery with jet stream followed by angioplasty of the anterior tibial artery and peroneal artery with drug-coated balloons, angioplasty to the dorsalis pedis. Unsuccessful posterior tibial artery cannulation. His peripheral arterial disease In the small vessel at the right lower extremity is deemed inoperable at this time. Congestive heart failure, ischemic cardiomyopathy, persistent cardiomyopathy with ejection fraction 20-25 percent, last echocardiogram was done in July 2017. Status post single-chamber ICD implant. continue to monitor Paroxysmal atrial fibrillation-patient noted to have episodes of atrial fibrillation on his first ICD interrogation, longest episode up to one hour. continue on current medication including amiodarone and monitor History of chronic renal insufficiency, followed by [facility], monitor renal function Tobaccoism, reports recently quit smoking. Educated on importance of smoking cessation. History of port placement on the right side, status post retrieval after fractured port in June 2016 Hypertension, Restart home medication monitor Hyperlipidemia, was started on Lipitor 80 mg daily. Continue to monitor Diabetes mellitus, followed and monitored by primary care physician. Mild bilateral nonobstructive carotid artery stenosis, last carotid ultrasound was done in December 2017, continue to monitor next Preoperative cardiac evaluation, patient is considered at intermediate to high risk for perioperative cardiac vascular complications, decision regarding the surgery, risks versus benefit is deferred to the surgeon. Clinical Quality Measures DVT/VTE Risk/Contraindication: Risk Factor Score Per Nursin RFS Level Per Nursing on Admit: 4+=Very High JORDEN GREER MD Apr 01, 2018 07:19
[2018-04-01 08:00] VITALS: BP 121/73
[2018-04-01] MEDS ORDERED: ASPIRIN E.C. 81 MG (ECOTRIN) TAB PO SCH (09:00)
[2018-04-01] MEDS ORDERED: lisINopril 5 MG (PRINIVIL) TABLET PO SCH (09:00)
--- NOTE | 2018-04-01 09:03 | Progress Note-Hospitalist ---
Subjective HPI/CC On Admission Date Seen by Provider: Apr 01, 2018 Time Seen by Provider: 08:30 57 year old male with Hx of DM, CAD, CHF, CKD, PVD admitted for SOB and possible PNA. Pt states he has felt short of breath for the last 2-3 weeks and has had a cough. Pt states he has some chest tightness with his cough but no chest pain. Pt states he saw Dr. Chicas today for evaluation for left BKA scheduled for tomorrow. Subjective/Events-last exam Patient doing better today Slept well after fentanyl so we'll adjust the dose of fentanyl since it appears to be making him very drowsy Renal function reviewed Declines hemodialysis if that was required Review of Systems General: Fatigue Focused Exam Lactate Level 03/31/18 14:50: Lactic Acid Level 1.34 Objective Exam Vital Signs Vital Signs Date Time Temp Pulse Resp B/P (MAP) Pulse Ox O2 Delivery O2 Flow Rate FiO2 04/01/18 08:00 96.4 59 18 121/73 (89) 97 Room Air 03/31/18 16:43 21 Capillary Refill : General Appearance: No Apparent Distress, WD/WN, Chronically ill Respiratory: Chest Non Tender, Lungs Clear, No Accessory Muscle Use, No Respiratory Distress, Decreased Breath Sounds Cardiovascular: Regular Rate, Rhythm, No Edema, No Gallop, No JVD, No Murmur, Normal Peripheral Pulses Extremity: Pedal Edema Neurologic/Psychiatric: Alert, Oriented x3, No Motor/Sensory Deficits, Normal Mood/Affect Results/Procedures Lab Laboratory Tests 03/31/18 14:50 04/01/18 03:10 Patient resulted labs reviewed. Assessment/Plan Assessment and Plan Assess & Plan/Chief Complaint Assessment: Left foot diabetic ulcer placed on empiric antibiotics before left below-the- knee of dictation tomorrow by Dr. Chicas Chronic renal failure but declines any hemodialysis at that becomes a necessity Elevated BNP with volume overload responded to IV Lasix Diabetes mellitus insulin-dependent labile control Hypertension Hyperlipidemia Depression Plan: Proceed on with left below the knee amputation by Dr. Chicas since benefits outweigh the risk at this current time Monitor creatinine Maintain antibiotics Monitor closely Diagnosis/Problems Diagnosis/Problems (1) Diabetic ulcer of left foot Status: Acute Qualifiers: Diabetic foot ulcer location: unspecified part of foot Diabetes mellitus type: type 2 Non-pressure ulcer stage: with necrosis of bone Qualified Codes : E11.621 - Type 2 diabetes mellitus with foot ulcer; L97.524 - Non-pressure chronic ulcer of other part of left foot with necrosis of bone (2) CKD (chronic kidney disease) stage 3, GFR 30-59 ml/min Status: Chronic (3) Anemia in chronic kidney disease Status: Chronic Qualifiers: Chronic kidney disease stage: stage 4 (severe) Qualified Codes: N18.4 - Chronic kidney disease, stage 4 (severe); D63.1 - Anemia in chronic kidney disease (4) Ischemic cardiomyopathy Status: Chronic (5) Essential (primary) hypertension Status: Chronic (6) PVD (peripheral vascular disease) Status: Chronic (7) Gangrene Status: Acute (8) Dyspnea Status: Acute Qualifiers: Dyspnea type: dyspnea on exertion Qualified Codes: R06.09 - Other forms of dyspnea (9) Insulin dependent diabetes mellitus Status: Chronic Clinical Quality Measures DVT/VTE Risk/Contraindication: Risk Factor Score Per Nursin RFS Level Per Nursing on Admit: 4+=Very High ABIODUN SOLANO DO Apr 01, 2018 09:03
--- NOTE | 2018-04-01 09:20 | NUR ---
CM/SS spoke with the son (Zander Bailey, ) he discussed his concerns for how the patient has chosen to live. Patient is scheduled for a BKA on 04/02. If patient is in need of a SNF after surgery then his preference would be for [facility] as that is where he lives. Son is not willing to let the patient live with him.
[2018-04-01] MEDS: ISOSORBIDE MONONITRATE 30 MG (IMDUR) TAB PO SCH (09:23)
[2018-04-01] MEDS: AMIODARONE 200 MG (CORDARONE) TAB PO SCH (09:23)
[2018-04-01] MEDS: POLYETHYLENE GLYCOL 17 GM (MIRALAX) PACK PO SCH ×2 (09:24→22:34)
[2018-04-01] MEDS: CARVEDILOL 3.125 MG (COREG) TABLET PO SCH ×2 (09:24→22:34)
[2018-04-01] MEDS ORDERED: INSU100I29 SQ (09:30)
[2018-04-01] MEDS ORDERED: CEFD300C3 PO (09:30)
[2018-04-01] MEDS ORDERED: INSU100I14 SQ (09:30)
[2018-04-01] MEDS ORDERED: SERT50TA2 PO (09:30)
[2018-04-01] MEDS ORDERED: L.AC1CAP6 PO (09:30)
[2018-04-01] MEDS ORDERED: GUAI118L16 PO (09:30)
[2018-04-01] MEDS ORDERED: HYDR-3820 PO (09:30)
[2018-04-01] MEDS: RT-ALBUTEROL/IPRATROPIUM 3 ML (DUONEB) VIAL INH SCH ×3 (09:30→19:38)
[2018-04-01] MEDS ORDERED: FURO-124 PO (09:30)
[2018-04-01] MEDS ORDERED: CARV3.12 PO (09:30)
[2018-04-01] MEDS ORDERED: ATOR80TA76 PO (09:32)
--- NOTE | 2018-04-01 09:37 | NUR ---
CALLED SIDDHARTHA FOR A LIST OF RECENTLY FILLED MEDICATIONS AND WENT OVER IT WITH THE PATIENT. HE ALSO HAD HIS BOTTLES WITH HIM AND VERIFIED HOW HE TAKES EACH MEDICATION. SIDDHARTHA FILLED: 03-27-17 CHERATUSSIN AC 5ML Q4H PRN #180 03-21-18 AMIODARONE 200MG BID X 2 WEEKS THEN 1 QD #42 (TAKES ONCE DAILY NOW) 03-21-18 COREG 3.125MG BID #60 (ONLY TAKES 1 DAILY) 03-03-18 LIPITOR 80MG DAILY #90 03-03-18 PLAVIX 75MG DAILY #90 18 ZOLOFT 50MG DAILY #30 (TAKES PRN) 01-06-18 LINEZOLID 600MG BID X 14 DAYS (FINISHED) 12-25-17 LEVOTHYROXINE 200MCG #90 11-26-17 IMDUR 30MG DAILY #90 11-26-17 LOVASTATIN 20MG #30 (NO LONGER TAKING) 07-25-17 LASIX 40MG BID #60 (ONLY TAKES ONE DAILY, STATES HE HAS A SUPPLY ON HAND) [facility] FILLED: 03-28-17 HYDROCODONE 10-325MG Q4H PRN #120 03-20-18 CEFDINIR 300MG BID X 2 WEEKS #28 [facility], HE HAS THE NOVOLOG AND LEVEMIR WITH HIM. HE USES 12-16 UNITS WITH MEALS OF NOVOLOG AND 14 UNITS DAILY OF LEVEMIR. HE TAKES A PROBIOTIC BID WITH HIS ANTIBIOTIC AND ASPIRIN 81MG DAILY OTC. HE ALSO STATES HE HAS NITROGLYCERIN ON HAND IF NEEDED.
--- NOTE | 2018-04-01 11:01 | NUR ---
CALLED DR. GREER PEP DR. FUCHS REQUEST TO ASK IF IT IS OKAY IF PATIENT GOES OFF ASA 81 MG R.T SURGERY THIS SATURDAY. DR. GREER STATES OKAY TO STOP.
[2018-04-01 12:00] VITALS: BP 117/72
[2018-04-01] MEDS: guaiFENesin/CODEINE (ROBITUSSIN AC) 10ML UDC PO PRN (14:23)
[2018-04-01 16:30] VITALS: BP 116/61
[2018-04-01] MEDS: VANCOMYCIN 1500 MG/NS 500 ML IVPB IV SCH ×2 (17:06)
[2018-04-01] MEDS: ENOXAPARIN 40 MG/0.4 ML (LOVENOX) SYR SC SCH (17:06)
[2018-04-01] MEDS ORDERED: FLU QUADRIvalent (5+ YOA) 2018-2019 (AFLURIA) 0.5 ML IM ONE (18:30)
--- NOTE | 2018-04-01 18:34 | Consultation ---
History of Present Illness History of Present Illness Patient Consulted On(sylvie/time) 04/01/18 18:28 Date Seen by Provider: Apr 01, 2018 Time Seen by Provider: 10:25 History of Present Illness consult requested by Dr. Colon for left below-knee amputation. Patient is a 57-year-old malewho has a chronically infected ulceration Left lateral heel. He has underwent multiple attempts at vascular revascularization. Patient states her last 2 years that it would get close to healing and then return. Patient states he does have some discomfort and pain with the wound. He says is varying in stages of healing and he has been recommended to have a left below-knee amputation. Patient is tired of having all the infections within the wound. Patient also has had some shortness of breath and congestion which is just recently started. He has a hard time breathing which worsens with movement. He states today at low bit better compared to yesterday. Patient is also on Plavix and aspirin which the Plavix has been held. Patient denies any nausea vomiting fever sweats chills shortness of breath or chest pain currently at this time. Allergies and Home Medications Allergies Coded Allergies: oxycodone HCl (Verified Allergy, Unknown, HAS RECEIVED HYDROMORPHONE W/O ISSUE, 01/01/18) protamine (Verified Allergy, Unknown, 01/01/18) Home Medications Amiodarone HCl 200 Mg Tablet, 200 MG PO DAILY, (Reported) Aspirin 81 Mg Tablet.dr, 81 MG PO DAILY, (Reported) Atorvastatin Calcium 80 Mg Tablet, 80 MG PO DAILY, (Reported) Carvedilol 3.125 Mg Tablet, 3.125 MG PO DAILY, (Reported) Cefdinir 300 Mg Capsule, 300 MG PO BID, (Reported) #28 FILLED 18 Clopidogrel Bisulfate 75 Mg Tablet, 75 MG PO DAILY, (Reported) Furosemide 40 Mg Tablet, 40 MG PO DAILY, (Reported) LAST FILLED #60 518 Guaifenesin/Codeine Phosphate 118 Ml Liquid, 5 ML PO Q4H PRN for COUGH, ( Reported) Hydrocodone/Acetaminophen 1 Each Tablet, 1 TAB PO Q4H PRN for PAIN-MODERATE, ( Reported) Insulin Aspart 300 Units/3 Ml Solution, 12-16 UNITS SQ TIDAC, (Reported) Insulin Detemir 100 Unit/1 Ml Insuln.pen, 14 UNIT SQ DAILY, (Reported) Isosorbide Mononitrate 30 Mg Tab.er.24h, 30 MG PO DAILY, (Reported) Jeannie & SilvinoB.lactis 1 Each Capsule, 1 CAP PO BID, (Reported) Levothyroxine Sodium 200 Mcg Tablet, 200 MCG PO DAILY, (Reported) Nitroglycerin 0.4 Mg Tab.subl, 0.4 MG SL UD PRN for CHEST PAIN, (Reported) Sertraline HCl 50 Mg Tablet, 50 MG PO DAILY PRN for MOOD, (Reported) LAST FILLED #30 01-09-18 Patient Home Medication List Home Medication List Reviewed: Yes Past Dmztssu-[id number]-Jxasbd Hx Patient Social History Alcohol Use: Occasionally Uses Number of Drinks Today: AA Recreational Drug Use: No Smoking Status: Current Everyday Smoker Former Smoker, Quit: May 29, 2017 Type Used: Cigars Recent Foreign Travel: No Contact w/Someone Who Travel: No Recent Hopitalizations: No Physical Abuse Screen: No Sexual Abuse: No Immunizations Up To Date Tetanus Booster (TDap): Unknown Seasonal Allergies Seasonal Allergies: No Surgeries History of Surgeries: Yes (BUNIONECTOMY BILAT FEET; LEFT BIG TOE AND ONE NEXT TO IT, ALL TOES ON RIGHT) Surgeries: CABG, Gallbladder, Orthopedic, Vascular Surgery Respiratory History of Respiratory Disorde: No Respiratory Disorders: Sleep Apnea Cardiovascular History of Cardiac Disorders: Yes Cardiac Disorders: Chronic Edema/Swelling, Coronary Artery Disease, Heart Attack, High Cholesterol, Hypertension, Peripheral Vascular Neurological History of Neurological Disord: Yes Neurological Disorders: Neuropathy Reproductive System Hx Reproductive Disorders: No Sexually Transmitted Disease: No HIV/AIDS: No Genitourinary History of Genitourinary Disor: Yes Genitourinary Disorders: Renal Failure Gastrointestinal History of Gastrointestinal Di: No (OCC REFLUX) Gastrointestinal Disorders: Gastroesophageal Reflux Musculoskeletal History of Musculoskeletal Dis: Yes (RIGHT FOOT TOES AMPUTEE 06/08/16, 1ST AND 2ND LEFT TOES) Musculoskeletal Disorders: Amputee, Arthritis, Chronic Back Pain Endocrine History of Endocrine Disorders: Yes Endocrine Disorders: Diabetes, Insulin dep, Hypothyroidsim HEENT History of HEENT Disorders: Yes HEENT Disorders: Cataract Loss of Vision: Left Hearing Impairment: Denies Cancer History of Cancer: No Psychosocial History of Psychiatric Problem: Yes Behavioral Health Disorders: Sleep Difficulties Integumentary History of Skin or Integumenta: Yes (hx of diabetic ulcer) Skin/Integumentary Disorders: Recent Skin Changes Blood Transfusions History of Blood Disorders: No Adverse Reaction to a Blood Tr: No Family Medical History Significant Family History: No Pertinent Family Hx Family Medial History: Alzheimer's disease 19 FATHER BLOOD Cardiovascular disease 19 MOTHER Diabetes mellitus 19 FATHER G8 SISTER FH: blood disorder G8 SISTER (SPECULATION) Hypertension 19 MOTHER Myocardial infarction 19 MOTHER Review of Systems-General Constitutional: no symptoms reported EENTM: no symptoms reported Respiratory: see HPI, cough, short of breath Cardiovascular: no symptoms reported Gastrointestinal: no symptoms reported Genitourinary: no symptoms reported Musculoskeletal: no symptoms reported Skin: no symptoms reported Psychiatric/Neurological: No Symptoms Reported Physical Exam-General Problems Physical Exam Vital Signs Vital Signs - First Documented 03/31/18 03/31/18 14:28 16:43 Temp 99.1 Pulse 79 Resp 20 B/P (MAP) 125/68 (87) Pulse Ox 99 O2 Delivery Room Air FiO2 21 Capillary Refill : General Appearance: WD/WN, no apparent distress HEENT: PERRL/EOMI, normal ENT inspection Neck: supple Respiratory: no respiratory distress, no accessory muscle use Cardiovascular: regular rate, rhythm Gastrointestinal: non tender, soft Extremities: other (left lateral heel with deep chronic wound ulceration) Neurologic/Psychiatric: alert, normal mood/affect, oriented x 3 Skin: warm/dry Lymphatic: no adenopathy Data Review Labs Laboratory Tests 03/31/18 21:35: Glucometer 150H 04/01/18 03:10: White Blood Count 6.9, Red Blood Count 4.27L, Hemoglobin 12.6L, Hematocrit 39L, Mean Corpuscular Volume 90, Mean Corpuscular Hemoglobin 30, Mean Corpuscular Hemoglobin Concent 33, Red Cell Distribution Width 16.9H, Platelet Count 173, Mean Platelet Volume 11.3H, Neutrophils (%) (Auto) 75, Lymphocytes (%) (Auto) 15 , Monocytes (%) (Auto) 6, Eosinophils (%) (Auto) 3, Basophils (%) (Auto) 1, Neutrophils # (Auto) 5.2, Lymphocytes # (Auto) 1.0, Monocytes # (Auto) 0.4, Eosinophils # (Auto) 0.2, Basophils # (Auto) 0.1, Sodium Level 142, Potassium Level 4.1, Chloride Level 103, Carbon Dioxide Level 28, Anion Gap 11, Blood Urea Nitrogen 42H, Creatinine 2.96H, Estimat Glomerular Filtration Rate 22, BUN/ Creatinine Ratio 14, Glucose Level 143H, Calcium Level 8.4L, Corrected Calcium 9.4, Magnesium Level 1.9, Total Bilirubin 0.6, Aspartate Amino Transf (AST/SGOT ) 22, Alanine Aminotransferase (ALT/SGPT) 20, Alkaline Phosphatase 66, Total Protein 5.8L, Albumin 2.7L 04/01/18 11:15: Glucometer 151H 04/01/18 16:38: Glucometer 231H Microbiology 03/31/18 Blood Culture - Preliminary, Resulted No growth Assessment/Plan Assessment/Plan Assessment/Plan Left lateral heel foot diabetic ulcer chronically infected Chronic renal failure Diabetes mellitus insulin-dependent Hypertension Hyperlipidemia patient is has been on Plavix. Would like this to be off for approximately 5 days which is currently on hold patient was discuss risk and benefits of having a left below-knee amputation performed which she states he's been recommended multiple times He understands risk and benefits of procedure wishes to proceed. patient to be medically optimized and then we'll likely proceed or Saturday for surgical intervention. Clinical Quality Measures DVT/VTE Risk/Contraindication: Risk Factor Score Per Nursin RFS Level Per Nursing on Admit: 4+=Very High LEIGH ANN FUCHS DO Apr 01, 2018 18:34
[2018-04-01 20:23] VITALS: BP 121/71
[2018-04-01] MEDS: ATORVASTATIN 80 MG (LIPITOR) TABLET PO SCH (22:33)
[2018-04-02] VITALS: BP 136/81
[2018-04-02 04:00] VITALS: BP 116/75
[2018-04-02] MEDS: inSUlin ASPART (NovoLOG) 1 UNIT/0.01 ML (CHARGE PER UNIT) SC SCH ×4 (05:38→21:57)
[2018-04-02 06:03] LABS: BASOPHILS # (AUTO) 0.1 10^3/uL (0.0-0.1); BASOPHILS % (AUTO) 1 % (0-10); EOSINOPHILS # (AUTO) 0.2 10^3/uL (0.0-0.3); EOSINOPHILS % (AUTO) 3 % (0-10); HEMATOCRIT 40 % (40-54); HEMOGLOBIN 12.9 G/DL (13.3-17.7); LYMPHOCYTES # (AUTO) 0.9 X 10^3 (1.0-4.0); LYMPHOCYTES % (AUTO) 13 % (12-44); MEAN CORPUSCULAR HEMOGLOBIN 29 PG (25-34); MEAN CORPUSCULAR HGB CONC 32 G/DL (32-36); MEAN CORPUSCULAR VOLUME 90 FL (80-99); MEAN PLATELET VOLUME 11.5 FL (7.4-10.4); MONOCYTES # (AUTO) 0.5 X 10^3 (0.0-1.0); MONOCYTES % (AUTO) 8 % (0-12); NEUTROPHILS % (AUTO) 76 % (42-75); PLATELET COUNT 163 10^3/uL (130-400); RED BLOOD COUNT 4.48 10^6/uL (4.35-5.85); RED CELL DISTRIBUTION WIDTH 16.7 % (10.0-14.5); WHITE BLOOD COUNT 6.6 10^3/uL (4.3-11.0)
[2018-04-02] MEDS: FUROSEMIDE 40 MG/4 ML INJ (LASIX) IVP SCH (06:11)
[2018-04-02] MEDS: PIPERACILLIN SODIUM/TAZOBACTAM 4.5 GM in NS (IVPB) 100 ML IV SCH ×3 (06:11→21:57)
[2018-04-02] MEDS: LEVOTHYROXINE 100 MCG (LEVOTHROID) TAB PO SCH (06:11)
[2018-04-02] MEDS: CATHETER FLUSH 10 ML SYR IV SCH ×3 (06:12→21:58)
[2018-04-02 06:27] LABS: ALBUMIN 2.9 GM/DL (3.2-4.5); CALCIUM 8.6 MG/DL (8.5-10.1); CREATININE SERUM 3.22 MG/DL (0.60-1.30); POTASSIUM 4.2 MMOL/L (3.6-5.0); TOTAL PROTEIN 6.2 GM/DL (6.4-8.2)
[2018-04-02 08:00] VITALS: BP 121/54
--- NOTE | 2018-04-02 08:30 | Progress Note-Hospitalist ---
ABIODUN SOLANO DO 04/02/18 0829: Subjective HPI/CC On Admission Date Seen by Provider: Apr 02, 2018 Time Seen by Provider: 09:00 CC: Left diabetic ulcer infection HPI: This is a 57-year-old white male clinic patient of [facility] with a history of stage IV renal insufficiency, diabetes mellitus insulin-dependent and severe peripheral vascular disease with heart disease that has failed wound care for the past 4 years on the left foot and needs a left [id number] amputation but he was admitted for modification of risk factors including shortness of breath and wheezing found to have elevated BNP needing IV diuresis. Appreciate cardiology consultation and Dr. Chicas will plan on left below the knee amputation on Saturday. Patient is not interested in dialysis if that ever would be a requirement. Subjective/Events-last exam Patient breathing better IV Lasix has improved volume overload area well Creatinine is rising Declines any hospice if it becomes necessary Will likely need rehabilitation after left below the knee amputation scheduled for Saturday in order to navigate as an amputee Had a partial amputation of the right foot so that we will cause mobility issues after the left below the knee amputation Review of Systems Pulmonary: Dyspnea Focused Exam Lactate Level 03/31/18 14:50: Lactic Acid Level 1.34 Objective Exam Vital Signs Vital Signs Date Time Temp Pulse Resp B/P (MAP) Pulse Ox O2 Delivery O2 Flow Rate FiO2 04/02/18 08:51 97 Room Air 04/02/18 08:00 98.0 56 18 121/54 (76) 03/31/18 16:43 21 Capillary Refill : General Appearance: No Apparent Distress, WD/WN, Chronically ill Neck: Full Range of Motion, Normal Inspection, Non Tender, Supple, Carotid Bruit Respiratory: Chest Non Tender, Lungs Clear, Normal Breath Sounds, No Accessory Muscle Use, No Respiratory Distress Cardiovascular: Regular Rate, Rhythm, No Edema, No Gallop, No JVD, No Murmur, Normal Peripheral Pulses Neurologic/Psychiatric: Alert, Oriented x3, No Motor/Sensory Deficits, Normal Mood/Affect Results/Procedures Lab Laboratory Tests 04/02/18 05:53 Patient resulted labs reviewed. Assessment/Plan Assessment and Plan Assess & Plan/Chief Complaint Assessment: Left foot diabetic ulcer placed on empiric antibiotics before left below-the- knee of amputation scheduled for Saturday Chronic renal failure but declines any hemodialysis at that becomes a necessity Elevated BNP with volume overload responded to IV Lasix Diabetes mellitus insulin-dependent labile control Hypertension Hyperlipidemia Depression Plan: Proceed on with left below the knee amputation by Dr. Chicas on Saturday since benefits outweigh the risks at this current time Monitor creatinine Maintain antibiotics Monitor closely Diagnosis/Problems Diagnosis/Problems (1) Diabetic ulcer of left foot Status: Acute Qualifiers: Diabetic foot ulcer location: unspecified part of foot Diabetes mellitus type: type 2 Non-pressure ulcer stage: with necrosis of bone Qualified Codes : E11.621 - Type 2 diabetes mellitus with foot ulcer; L97.524 - Non-pressure chronic ulcer of other part of left foot with necrosis of bone (2) CKD (chronic kidney disease) stage 3, GFR 30-59 ml/min Status: Chronic (3) Anemia in chronic kidney disease Status: Chronic Qualifiers: Chronic kidney disease stage: stage 4 (severe) Qualified Codes: N18.4 - Chronic kidney disease, stage 4 (severe); D63.1 - Anemia in chronic kidney disease (4) Ischemic cardiomyopathy Status: Chronic (5) Essential (primary) hypertension Status: Chronic (6) PVD (peripheral vascular disease) Status: Chronic (7) Gangrene Status: Acute (8) Dyspnea Status: Acute Qualifiers: Dyspnea type: dyspnea on exertion Qualified Codes: R06.09 - Other forms of dyspnea (9) Insulin dependent diabetes mellitus Status: Chronic Clinical Quality Measures DVT/VTE Risk/Contraindication: Risk Factor Score Per Nursin RFS Level Per Nursing on Admit: 4+=Very High EDITH TRONCOSO MEDICAL STUDENT 04/02/18 1059: Subjective Subjective/Events-last exam Pt states his breathing is much improved Pt afebrile, denies any CP, SOB Pt surgery now scheduled for Saturday Objective Exam General Appearance: No Apparent Distress, WD/WN HEENT: PERRL/EOMI Neck: Full Range of Motion, Normal Inspection Respiratory: Chest Non Tender, Lungs Clear, No Respiratory Distress Assessment/Plan Assessment and Plan Assess & Plan/Chief Complaint Assessment: Left foot diabetic ulcer placed on empiric antibiotics before left below-the- knee of dictation Saturday by Dr. Chicas Chronic renal failure but declines any hemodialysis at this time unless it becomes a necessity Elevated BNP with volume overload responded to IV Lasix History of DM History of HTN Hits[place] of HLD Depression Plan: Proceed on with left below the knee amputation by Dr. Chicas since benefits outweigh the risk at this current time Continue to monitor Creat Continue antibiotics Monitor closely ABIODUN SOLANO DO Apr 02, 2018 08:29 EDITH TRONCOSO MEDICAL STUDENT Apr 02, 2018 10:59
--- NOTE | 2018-04-02 08:41 | Cardiology Progress Note ---
Subjective Date Seen by Provider: Apr 02, 2018 Time Seen by Provider: 08:39 Subjective/Events-last exam Patient is sitting up in bed, no new complaints. Denies any chest pain or dyspnea. Review of Systems General: No Night Sweats, No Fatigue, No Malaise HEENT: No Visual Changes, No Dysphasia Pulmonary: No Dyspnea, No Cough Cardiovascular: No: Chest Pain, Palpitations, Paroxysmal Noc. Dyspnea, Edema Gastrointestinal: No: Nausea, Vomiting, Abdominal Pain Genitourinary: No Dysuria, No Frequency Musculoskeletal: No: neck pain, back pain Neurological: No: Weakness, Numbness, Change in speech, Confusion Focused Exam Lactate Level 03/31/18 14:50: Lactic Acid Level 1.34 Objective-Cardiology Exam Last Set of Vital Signs Vital Signs 03/31/18 04/02/18 04/02/18 16:43 04:00 07:00 Temp 98.1 Pulse 52 Resp 18 B/P (MAP) 116/75 (89) Pulse Ox 97 O2 Delivery Room Air FiO2 21 Capillary Refill : I&O Intake and Output 04/02/18 00:00 Intake Total 2810 ml Output Total 5450 ml Balance -2640 ml Intake Oral 2810 ml Output Urine Total 5450 ml General: Alert, Oriented X3, Cooperative HEENT: Atraumatic, PERRLA Neck: Supple, No JVD, No Thyromegaly Lungs: Clear to Auscultation, Normal Air Movement Heart: Regular Rate, Normal S1, Normal S2, No Murmurs Abdomen: Normal Bowel Sounds, Soft, No Tenderness, No Hepatosplenomegaly, No Masses Extremities: No Clubbing, No Cyanosis, Other Skin: No Rashes, No Breakdown, No Significant Lesion Neuro: Normal Gait, Normal Speech, Normal Tone, Sensation Intact Psych/Mental Status: Mental Status NL, Mood NL Results Lab Laboratory Tests 04/02/18 05:53 A/P-Cardiology Admission Diagnosis Ischemic foot ulcer Peripheral arterial disease Coronary artery disease Congestive heart failure, chronic compensated left ventricular systolic dysfunction, ischemic cardiomyopathy with ejection fraction 20-25 percent Assessment/Plan Nonhealing foot ulcer, recurrent, extensive peripheral arterial disease, underwent multiple interventions in the past, failing percutaneous intervention. Planning for BKA. Coronary artery disease, history of CABG 4 in 2008 with cardiac catheterization June 02, [address] Arvizu revealing severe three-vessel [place] coronary artery disease with non-bypassed RCA, patent OSBORNE to LAD, patent vein graft to first diag, patent vein graft to first OM. There was occluded jump graft to the second obtuse marginal branch with successful PCI using bare-metal vision stent 3.0 x 28 mm to the second OM. At that time was reported patient staged intervention to the right and third OM branch after gallbladder removal by Dr. Arvizu, had stress test done at [facility] within then and no further intervention was made. Patient was to be scheduled for [facility] with intervention after healing of Left foot ulcer, however, patient did not follow up, Cardiac catheterization was carried out by Dr. Busch in January 2015 and reported as patent OSBORNE to the LAD vein graft to the diagonal artery and vein graft to the obtuse marginal artery, small vessel disease distally, the right coronary artery has severe diffuse disease, Dr. Busch felt that it is high risk for intervention at this time, medical therapy is recommended. Patient will require significant amount of stenting with limited benefit. Continue to monitor at this time Significant peripheral arterial disease, multiple intervention by Dr. Beebe in the past. Extensive workup in the past, angiogram was done on May 30, 2016 which showed on the right side subtotal occlusion of the anterior tibial artery , severe disease at the posterior tibial and peroneal artery and distal popliteal artery successful balloon angioplasty to the anterior tibial artery using 2.0 then 3.0 balloon with excellent results, balloon angioplasty to the popliteal artery using Lutonix 4.018 mm with excellent results. On July 02, 2016 patient was noted to have total occlusion of the anterior tibial artery of the left leg with balloon angioplasty using 3x100 balloon with excellent results. Return on July 04, 2016 and underwent intervention on the right lower extremity using Lutonix to the distal SFA 6 time 150 mm with excellent results. Patient has small vessel disease distally. On May 01, 2017 after having a nonhealing wound to the left heel. Was found to have total occlusion of the left anterior tibial artery, complex intervention using multiple wires and balloons with excellent results. Repeat angiogram was done on January 01, 2018 showing total occlusion of the anterior tibial artery with unsuccessful attempt to cross the lesion, I was able to do balloon angioplasty for severe disease of the peroneal artery. Patient still have severe stenosis at the distal SFA. Patient was referred to [facility], underwent angiogram on January 10, 2018 had left SFA angioplasty with drug-coated balloon, atherectomy of the anterior tibial artery with jet stream followed by angioplasty of the anterior tibial artery and peroneal artery with drug-coated balloons, angioplasty to the dorsalis pedis. Unsuccessful posterior tibial artery cannulation. His peripheral arterial disease In the small vessel at the right lower extremity is deemed inoperable at this time. Congestive heart failure, ischemic cardiomyopathy, persistent cardiomyopathy with ejection fraction 20-25 percent, last echocardiogram was done in July 2017. Status post single-chamber ICD implant. continue to monitor Paroxysmal atrial fibrillation-patient noted to have episodes of atrial fibrillation on his first ICD interrogation, longest episode up to one hour. continue on current medication including amiodarone and monitor chronic renal insufficiency, followed by nurse staff, monitor renal function Tobaccoism, reports recently quit smoking. Educated on importance of smoking cessation. History of port placement on the right side, status post retrieval after fractured port in June 2016 Hypertension, controlled, continue to monitor. Hyperlipidemia, was started on Lipitor 80 mg daily. Continue to monitor Diabetes mellitus, followed and monitored by primary care physician. Mild bilateral nonobstructive carotid artery stenosis, last carotid ultrasound was done in December 2017, continue to monitor Preoperative cardiac evaluation, patient is considered at intermediate to high risk for perioperative cardiac vascular complications, decision regarding the surgery, risks versus benefit is deferred to the surgeon. Clinical Quality Measures DVT/VTE Risk/Contraindication: Risk Factor Score Per Nursin RFS Level Per Nursing on Admit: 4+=Very High SHAYNA GRANDE Apr 02, 2018 08:40
[2018-04-02] MEDS: RT-ALBUTEROL/IPRATROPIUM 3 ML (DUONEB) VIAL INH SCH ×3 (08:51→20:12)
[2018-04-02] MEDS: CARVEDILOL 3.125 MG (COREG) TABLET PO SCH ×2 (09:14→21:57)
[2018-04-02] MEDS: AMIODARONE 200 MG (CORDARONE) TAB PO SCH (09:14)
[2018-04-02] MEDS: ISOSORBIDE MONONITRATE 30 MG (IMDUR) TAB PO SCH (09:14)
[2018-04-02] MEDS: POLYETHYLENE GLYCOL 17 GM (MIRALAX) PACK PO SCH ×2 (09:14→21:32)
[2018-04-02] MEDS: fentaNYL INJECTION 100 MCG/2 ML AMP IVP PRN ×2 (10:37→22:08)
--- NOTE | 2018-04-02 11:09 | Progress Note ---
Subjective Date Seen by a Provider: Apr 02, 2018 Time Seen by a Provider: 07:32 Subjective/Events-last exam patient states his breathing is much improved today. He's feeling better. He denies any other complaints at this time. Patient Plavix is on hold. Denies any nausea vomiting fever sweats chills shortness of breath or chest pain. Focused Exam Lactate Level 03/31/18 14:50: Lactic Acid Level 1.34 Objective Exam Vital Signs Date Time Temp Pulse Resp B/P (MAP) Pulse Ox O2 Delivery O2 Flow Rate FiO2 04/02/18 08:51 97 Room Air 04/02/18 08:00 Room Air 04/02/18 08:00 98.0 56 18 121/54 (76) 93 Room Air 04/02/18 07:00 52 04/02/18 04:00 98.1 57 18 116/75 (89) 97 Room Air 04/02/18 01:00 60 04/02/18 00:00 97.3 58 20 136/81 (99) 99 Room Air 04/01/18 20:23 97.2 57 18 121/71 (88) 99 Room Air 04/01/18 20:00 Room Air 04/01/18 19:38 97 Room Air 04/01/18 19:00 67 04/01/18 16:30 97.0 53 16 116/61 (79) 100 Room Air 04/01/18 14:47 98 Room Air 04/01/18 13:00 60 04/01/18 12:00 96.8 55 17 117/72 (87) 94 Room Air I & O 04/02/18 07:00 Intake Total 2610 ml Output Total 3850 ml Balance -1240 ml Capillary Refill : General Appearance: No Apparent Distress, WD/WN HEENT: PERRL/EOMI Neck: Full Range of Motion, Normal Inspection Respiratory: Chest Non Tender, Lungs Clear, No Respiratory Distress Cardiovascular: Regular Rate, Rhythm, No Edema, No Gallop, No JVD, No Murmur, Normal Peripheral Pulses Gastrointestinal: non tender, soft Extremity: Pedal Edema Neurologic/Psychiatric: Alert, Oriented x3, No Motor/Sensory Deficits, Normal Mood/Affect Skin: Normal Color, Warm/Dry Lymphatic: No Adenopathy Results Lab Laboratory Tests 04/01/18 11:15: Glucometer 151H 04/01/18 16:38: Glucometer 231H 04/01/18 21:53: Glucometer 157H 04/02/18 05:13: Glucometer 143H 04/02/18 05:53: White Blood Count 6.6, Red Blood Count 4.48, Hemoglobin 12.9L, Hematocrit 40, Mean Corpuscular Volume 90, Mean Corpuscular Hemoglobin 29, Mean Corpuscular Hemoglobin Concent 32, Red Cell Distribution Width 16.7H, Platelet Count 163, Mean Platelet Volume 11.5H, Neutrophils (%) (Auto) 76H, Lymphocytes (%) (Auto) 13, Monocytes (%) (Auto) 8, Eosinophils (%) (Auto) 3, Basophils (%) (Auto) 1, Neutrophils # (Auto) 5.0, Lymphocytes # (Auto) 0.9L, Monocytes # (Auto) 0.5, Eosinophils # (Auto) 0.2, Basophils # (Auto) 0.1, Sodium Level 139, Potassium Level 4.2, Chloride Level 98, Carbon Dioxide Level 29, Anion Gap 12, Blood Urea Nitrogen 42H, Creatinine 3.22H, Estimat Glomerular Filtration Rate 20, BUN/ Creatinine Ratio 13, Glucose Level 125H, Calcium Level 8.6, Corrected Calcium 9.5, Total Bilirubin 1.0, Aspartate Amino Transf (AST/SGOT) 23, Alanine Aminotransferase (ALT/SGPT) 16, Alkaline Phosphatase 59, Total Protein 6.2L, Albumin 2.9L Microbiology 03/31/18 Blood Culture - Preliminary, Resulted No growth Assessment/Plan Assessment/Plan Assessment/Plan Left lateral heel foot diabetic ulcer chronically infected Chronic renal failure Diabetes mellitus insulin-dependent Hypertension Hyperlipidemia patient has been on Plavix. Would like this to be off for approximately 5 days which is currently on hold patient was discuss risk and benefits of having a left below-knee amputation performed which she states he's been recommended multiple times He understands risk and benefits of procedure wishes to proceed. patient to be medically optimized and he is scheduled for Saturday for left below-knee amputation Clinical Quality Measures DVT/VTE Risk/Contraindication: Risk Factor Score Per Nursin RFS Level Per Nursing on Admit: 4+=Very High LEIGH ANN FUCHS DO Apr 02, 2018 11:09
[2018-04-02 12:00] VITALS: BP 122/74
--- NOTE | 2018-04-02 13:17 | Cardiology Progress Note ---
Subjective Date Seen by Provider: Apr 02, 2018 Time Seen by Provider: 13:17 Subjective/Events-last exam patient is laying down in bed, no new complaint, denied any chest pain Review of Systems General: No Chills, No Night Sweats, No Fatigue, No Malaise, No Appetite, No Other HEENT: No Head Aches, No Visual Changes, No Eye Pain, No Ear Pain, No Dysphasia , No Sinus Congestion, No Post Nasal Drip, No Sore Throat, No Other Pulmonary: No Dyspnea, No Cough, No Pleuritic Chest Pain, No Other Cardiovascular: No: Chest Pain, Palpitations, Orthopnea, Paroxysmal Noc. Dyspnea, Edema, Lt Headedness, Other Focused Exam Lactate Level 03/31/18 14:50: Lactic Acid Level 1.34 Objective-Cardiology Exam Last Set of Vital Signs Vital Signs 03/31/18 04/02/18 04/02/18 16:43 08:00 08:51 Temp 98.0 Pulse 56 Resp 18 B/P (MAP) 121/54 (76) Pulse Ox 97 O2 Delivery Room Air FiO2 21 Capillary Refill : I&O Intake and Output 04/02/18 00:00 Intake Total 2810 ml Output Total 5450 ml Balance -2640 ml Intake Oral 2810 ml Output Urine Total 5450 ml General: Alert, Oriented X3, Cooperative HEENT: Atraumatic, PERRLA Neck: Supple, No JVD, No Thyromegaly Lungs: Clear to Auscultation, Normal Air Movement Heart: Regular Rate, Normal S1, Normal S2, No Murmurs Abdomen: Normal Bowel Sounds, Soft, No Tenderness, No Hepatosplenomegaly, No Masses Extremities: No Clubbing, No Cyanosis, Other (ischemic foot ulcer) Skin: No Rashes, No Breakdown, No Significant Lesion Neuro: Normal Gait, Normal Speech, Normal Tone, Sensation Intact Psych/Mental Status: Mental Status NL, Mood NL Results Lab Laboratory Tests 04/02/18 05:53 A/P-Cardiology Admission Diagnosis Ischemic foot ulcer Peripheral arterial disease Coronary artery disease Congestive heart failure, chronic compensated left ventricular systolic dysfunction, ischemic cardiomyopathy with ejection fraction 20-25 percent Assessment/Plan Nonhealing foot ulcer, recurrent, extensive peripheral arterial disease, underwent multiple interventions in the past, failing percutaneous intervention. Planning for BKA. Coronary artery disease, history of CABG 4 in 2008 with cardiac catheterization June 02, [address] Arvizu revealing severe three-vessel [place] coronary artery disease with non-bypassed RCA, patent OSBORNE to LAD, patent vein graft to first diag, patent vein graft to first OM. There was occluded jump graft to the second obtuse marginal branch with successful PCI using bare-metal vision stent 3.0 x 28 mm to the second OM. At that time was reported patient staged intervention to the right and third OM branch after gallbladder removal by Dr. Arvizu, had stress test done at [facility] within then and no further intervention was made. Patient was to be scheduled for [facility] with intervention after healing of Left foot ulcer, however, patient did not follow up, Cardiac catheterization was carried out by Dr. Busch in January 2015 and reported as patent OSBORNE to the LAD vein graft to the diagonal artery and vein graft to the obtuse marginal artery, small vessel disease distally, the right coronary artery has severe diffuse disease, Dr. Busch felt that it is high risk for intervention at this time, medical therapy is recommended. Patient will require significant amount of stenting with limited benefit. Continue to monitor at this time Significant peripheral arterial disease, multiple intervention by Dr. Beebe in the past. Extensive workup in the past, angiogram was done on May 30, 2016 which showed on the right side subtotal occlusion of the anterior tibial artery , severe disease at the posterior tibial and peroneal artery and distal popliteal artery successful balloon angioplasty to the anterior tibial artery using 2.0 then 3.0 balloon with excellent results, balloon angioplasty to the popliteal artery using Lutonix 4.018 mm with excellent results. On July 02, 2016 patient was noted to have total occlusion of the anterior tibial artery of the left leg with balloon angioplasty using 3x100 balloon with excellent results. Return on July 04, 2016 and underwent intervention on the right lower extremity using Lutonix to the distal SFA 6 time 150 mm with excellent results. Patient has small vessel disease distally. On May 01, 2017 after having a nonhealing wound to the left heel. Was found to have total occlusion of the left anterior tibial artery, complex intervention using multiple wires and balloons with excellent results. Repeat angiogram was done on January 01, 2018 showing total occlusion of the anterior tibial artery with unsuccessful attempt to cross the lesion, I was able to do balloon angioplasty for severe disease of the peroneal artery. Patient still have severe stenosis at the distal SFA. Patient was referred to [facility], underwent angiogram on January 10, 2018 had left SFA angioplasty with drug-coated balloon, atherectomy of the anterior tibial artery with jet stream followed by angioplasty of the anterior tibial artery and peroneal artery with drug-coated balloons, angioplasty to the dorsalis pedis. Unsuccessful posterior tibial artery cannulation. His peripheral arterial disease In the small vessel at the right lower extremity is deemed inoperable at this time. Congestive heart failure, ischemic cardiomyopathy, persistent cardiomyopathy with ejection fraction 20-25 percent, last echocardiogram was done in July 2017. Status post single-chamber ICD implant. continue to monitor Paroxysmal atrial fibrillation-patient noted to have episodes of atrial fibrillation on his first ICD interrogation, longest episode up to one hour. continue on current medication including amiodarone and monitor chronic renal insufficiency, followed by diplomatic officer, monitor renal function Tobaccoism, reports recently quit smoking. Educated on importance of smoking cessation. History of port placement on the right side, status post retrieval after fractured port in June 2016 Hypertension, controlled, continue to monitor. Hyperlipidemia, was started on Lipitor 80 mg daily. Continue to monitor Diabetes mellitus, followed and monitored by primary care physician. Mild bilateral nonobstructive carotid artery stenosis, last carotid ultrasound was done in December 2017, continue to monitor Preoperative cardiac evaluation, patient is considered at intermediate to high risk for perioperative cardiac vascular complications, decision regarding the surgery, risks versus benefit is deferred to the surgeon. Clinical Quality Measures DVT/VTE Risk/Contraindication: Risk Factor Score Per Nursin RFS Level Per Nursing on Admit: 4+=Very High JORDEN GREER MD Apr 02, 2018 13:17
[2018-04-02] MEDS ORDERED: TROUGH ORDER-PHARMACY XX NR (15:00)
[2018-04-02 16:00] VITALS: BP 132/72
[2018-04-02] MEDS ORDERED: ENOXAPARIN 30 MG/0.3 ML (LOVENOX) SYR SC SCH (16:00)
[2018-04-02] MEDS: VANCOMYCIN 1500 MG/NS 500 ML IVPB IV SCH ×2 (16:17)
[2018-04-02 20:00] VITALS: BP 124/67
[2018-04-02] MEDS: ATORVASTATIN 80 MG (LIPITOR) TABLET PO SCH (21:57)
[2018-04-02] MEDS: guaiFENesin/CODEINE (ROBITUSSIN AC) 10ML UDC PO PRN (23:06)
[2018-04-03 00:14] VITALS: BP 138/76
[2018-04-03] MEDS: fentaNYL INJECTION 100 MCG/2 ML AMP IVP PRN ×3 (04:05→19:22)
[2018-04-03 04:45] VITALS: BP 115/69
[2018-04-03 05:08] LABS: BASOPHILS # (AUTO) 0.1 10^3/uL (0.0-0.1); BASOPHILS % (AUTO) 1 % (0-10); EOSINOPHILS # (AUTO) 0.3 10^3/uL (0.0-0.3); EOSINOPHILS % (AUTO) 3 % (0-10); HEMATOCRIT 41 % (40-54); HEMOGLOBIN 13.2 G/DL (13.3-17.7); LYMPHOCYTES # (AUTO) 1.2 X 10^3 (1.0-4.0); LYMPHOCYTES % (AUTO) 15 % (12-44); MEAN CORPUSCULAR HEMOGLOBIN 29 PG (25-34); MEAN CORPUSCULAR HGB CONC 33 G/DL (32-36); MEAN CORPUSCULAR VOLUME 89 FL (80-99); MEAN PLATELET VOLUME 10.8 FL (7.4-10.4); MONOCYTES # (AUTO) 0.6 X 10^3 (0.0-1.0); MONOCYTES % (AUTO) 8 % (0-12); NEUTROPHILS # (AUTO) 5.5 X 10^3 (1.8-7.8); NEUTROPHILS % (AUTO) 72 % (42-75); PLATELET COUNT 178 10^3/uL (130-400); RED BLOOD COUNT 4.55 10^6/uL (4.35-5.85); RED CELL DISTRIBUTION WIDTH 17.1 % (10.0-14.5); WHITE BLOOD COUNT 7.6 10^3/uL (4.3-11.0)
[2018-04-03] MEDS: PIPERACILLIN SODIUM/TAZOBACTAM 4.5 GM in NS (IVPB) 100 ML IV SCH (05:21)
[2018-04-03] MEDS: LEVOTHYROXINE 100 MCG (LEVOTHROID) TAB PO SCH (05:22)
[2018-04-03] MEDS: CATHETER FLUSH 10 ML SYR IV SCH ×3 (05:22→21:22)
[2018-04-03 05:33] LABS: ALBUMIN 2.9 GM/DL (3.2-4.5); BILIRUBIN,TOTAL 1.1 MG/DL (0.1-1.0); CALCIUM 8.4 MG/DL (8.5-10.1); CREATININE SERUM 3.31 MG/DL (0.60-1.30); POTASSIUM 4.3 MMOL/L (3.6-5.0); TOTAL PROTEIN 5.8 GM/DL (6.4-8.2)
[2018-04-03] MEDS: inSUlin ASPART (NovoLOG) 1 UNIT/0.01 ML (CHARGE PER UNIT) SC SCH ×4 (05:42→21:22)
--- NOTE | 2018-04-03 07:05 | Cardiology Progress Note ---
Subjective Date Seen by Provider: Apr 03, 2018 Time Seen by Provider: 07:03 Subjective/Events-last exam patient is laying down in bed, no new complaint. Still having some cough Review of Systems General: No Chills, No Night Sweats, No Fatigue, No Malaise, No Appetite, No Other HEENT: No Head Aches, No Visual Changes, No Eye Pain, No Ear Pain, No Dysphasia , No Sinus Congestion, No Post Nasal Drip, No Sore Throat, No Other Pulmonary: Dyspnea, Cough; No Pleuritic Chest Pain, No Other Cardiovascular: Edema; No: Chest Pain, Palpitations, Orthopnea, Paroxysmal Noc. Dyspnea, Lt Headedness, Other Focused Exam Lactate Level 03/31/18 14:50: Lactic Acid Level 1.34 Objective-Cardiology Exam Last Set of Vital Signs Vital Signs 03/31/18 04/03/18 16:43 04:45 Temp 97.0 Pulse 61 Resp 18 B/P (MAP) 115/69 (84) Pulse Ox 98 O2 Delivery Room Air FiO2 21 Capillary Refill : I&O Intake and Output 04/03/18 00:00 Intake Total 1485 ml Output Total 3340 ml Balance -1855 ml Intake Oral 1485 ml Output Urine Total 3340 ml General: Alert, Oriented X3, Cooperative HEENT: Atraumatic, PERRLA Neck: Supple, No JVD, No Thyromegaly Lungs: Clear to Auscultation, Normal Air Movement Heart: Regular Rate, Normal S1, Normal S2, No Murmurs Abdomen: Normal Bowel Sounds, Soft, No Tenderness, No Hepatosplenomegaly, No Masses Extremities: No Clubbing, No Cyanosis, Other (ischemic foot ulcer) Skin: No Rashes, No Breakdown, No Significant Lesion Neuro: Normal Gait, Normal Speech, Normal Tone, Sensation Intact Psych/Mental Status: Mental Status NL, Mood NL Results Lab Laboratory Tests 04/03/18 05:00 A/P-Cardiology Admission Diagnosis Ischemic foot ulcer Peripheral arterial disease Coronary artery disease Congestive heart failure, chronic compensated left ventricular systolic dysfunction, ischemic cardiomyopathy with ejection fraction 20-25 percent Assessment/Plan Nonhealing foot ulcer, recurrent, extensive peripheral arterial disease, underwent multiple interventions in the past, failing percutaneous intervention. Planning for BKA. Acute on chronic renal failure, worsening renal function, has been followed by a hand flesher. I will start her on IV fluid and monitor renal function Coronary artery disease, history of CABG 4 in 2008 with cardiac catheterization June 02, [address] Arvizu revealing severe three-vessel [place] coronary artery disease with non-bypassed RCA, patent OSBORNE to LAD, patent vein graft to first diag, patent vein graft to first OM. There was occluded jump graft to the second obtuse marginal branch with successful PCI using bare-metal vision stent 3.0 x 28 mm to the second OM. At that time was reported patient staged intervention to the right and third OM branch after gallbladder removal by Dr. Arvizu, had stress test done at [facility] within then and no further intervention was made. Patient was to be scheduled for [facility] with intervention after healing of Left foot ulcer, however, patient did not follow up, Cardiac catheterization was carried out by Dr. Bushc in January 2015 and reported as patent OSBORNE to the LAD vein graft to the diagonal artery and vein graft to the obtuse marginal artery, small vessel disease distally, the right coronary artery has severe diffuse disease, Dr. Busch felt that it is high risk for intervention at this time, medical therapy is recommended. Patient will require significant amount of stenting with limited benefit. Continue to monitor at this time Significant peripheral arterial disease, multiple intervention by Dr. Beebe in the past. Extensive workup in the past, angiogram was done on May 30, 2016 which showed on the right side subtotal occlusion of the anterior tibial artery , severe disease at the posterior tibial and peroneal artery and distal popliteal artery successful balloon angioplasty to the anterior tibial artery using 2.0 then 3.0 balloon with excellent results, balloon angioplasty to the popliteal artery using Lutonix 4.018 mm with excellent results. On July 02, 2016 patient was noted to have total occlusion of the anterior tibial artery of the left leg with balloon angioplasty using 3x100 balloon with excellent results. Return on July 04, 2016 and underwent intervention on the right lower extremity using Lutonix to the distal SFA 6 time 150 mm with excellent results. Patient has small vessel disease distally. On May 01, 2017 after having a nonhealing wound to the left heel. Was found to have total occlusion of the left anterior tibial artery, complex intervention using multiple wires and balloons with excellent results. Repeat angiogram was done on January 01, 2018 showing total occlusion of the anterior tibial artery with unsuccessful attempt to cross the lesion, I was able to do balloon angioplasty for severe disease of the peroneal artery. Patient still have severe stenosis at the distal SFA. Patient was referred to [facility], underwent angiogram on January 10, 2018 had left SFA angioplasty with drug-coated balloon, atherectomy of the anterior tibial artery with jet stream followed by angioplasty of the anterior tibial artery and peroneal artery with drug-coated balloons, angioplasty to the dorsalis pedis. Unsuccessful posterior tibial artery cannulation. His peripheral arterial disease In the small vessel at the right lower extremity is deemed inoperable at this time. Congestive heart failure, ischemic cardiomyopathy, persistent cardiomyopathy with ejection fraction 20-25 percent, last echocardiogram was done in July 2017. Status post single-chamber ICD implant. continue to monitor Paroxysmal atrial fibrillation-patient noted to have episodes of atrial fibrillation on his first ICD interrogation, longest episode up to one hour. continue on current medication including amiodarone and monitor Tobaccoism, reports recently quit smoking. Educated on importance of smoking cessation. History of port placement on the right side, status post retrieval after fractured port in June 2016 Hypertension, controlled, continue to monitor. Hyperlipidemia, was started on Lipitor 80 mg daily. Continue to monitor Diabetes mellitus, followed and monitored by primary care physician. Mild bilateral nonobstructive carotid artery stenosis, last carotid ultrasound was done in December 2017, continue to monitor Preoperative cardiac evaluation, patient is considered at intermediate to high risk for perioperative cardiac vascular complications, decision regarding the surgery, risks versus benefit is deferred to the surgeon. Clinical Quality Measures DVT/VTE Risk/Contraindication: Risk Factor Score Per Nursin RFS Level Per Nursing on Admit: 4+=Very High JORDEN GREER MD Apr 03, 2018 07:05
[2018-04-03 08:00] VITALS: BP 112/60
[2018-04-03] MEDS: NS IV 1000 ML 1,000 ML IV SCH ×3 (08:20→19:22)
[2018-04-03] MEDS: AMIODARONE 200 MG (CORDARONE) TAB PO SCH (08:21)
[2018-04-03] MEDS: ISOSORBIDE MONONITRATE 30 MG (IMDUR) TAB PO SCH (08:21)
[2018-04-03] MEDS: POLYETHYLENE GLYCOL 17 GM (MIRALAX) PACK PO SCH ×3 (08:21→21:21)
[2018-04-03] MEDS: CARVEDILOL 3.125 MG (COREG) TABLET PO SCH ×2 (08:21→21:22)
[2018-04-03] MEDS: RT-ALBUTEROL/IPRATROPIUM 3 ML (DUONEB) VIAL INH SCH ×3 (09:27→20:25)
--- NOTE | 2018-04-03 09:59 | Progress Note-Hospitalist ---
[id number] DO 04/03/18 0959: Subjective HPI/CC On Admission Date Seen by Provider: Apr 03, 2018 Time Seen by Provider: 09:30 CC: Left diabetic ulcer infection HPI: This is a 57-year-old white male clinic patient of mine with a history of stage IV renal insufficiency, diabetes mellitus insulin-dependent and severe peripheral vascular disease with heart disease that has failed wound care for the past 4 years on the left foot and needs a left [id number] amputation but he was admitted for modification of risk factors including shortness of breath and wheezing found to have elevated BNP needing IV diuresis. Appreciate cardiology consultation and Dr. Chicas will plan on left below the knee amputation on Saturday. Patient is not interested in dialysis if that ever would be a requirement. Subjective/Events-last exam Getting ready for left below the knee amputation No BM for couple of days but he declines any meds but I did order MiraLAX anyway Nasal congestion so ordered saline nasal spray Creatinine 3.3 and stable Review of Systems General: Fatigue Focused Exam Lactate Level 03/31/18 14:50: Lactic Acid Level 1.34 Objective Exam Vital Signs Vital Signs Date Time Temp Pulse Resp B/P (MAP) Pulse Ox O2 Delivery O2 Flow Rate FiO2 04/03/18 09:27 94 Room Air 04/03/18 08:00 96.5 74 18 112/60 (77) 03/31/18 16:43 21 Capillary Refill : General Appearance: No Apparent Distress, WD/WN, Chronically ill Respiratory: Chest Non Tender, Lungs Clear, Normal Breath Sounds, No Accessory Muscle Use, No Respiratory Distress Cardiovascular: Regular Rate, Rhythm, No Edema, No Gallop, No JVD, No Murmur, Normal Peripheral Pulses Neurologic/Psychiatric: Alert, Oriented x3, No Motor/Sensory Deficits, Normal Mood/Affect Results/Procedures Lab Laboratory Tests 04/03/18 05:00 Patient resulted labs reviewed. Assessment/Plan Assessment and Plan Assess & Plan/Chief Complaint Assessment: Left foot diabetic ulcer placed on empiric antibiotics before left below-the- knee of amputation scheduled for tomorrow per Dr Chicas Chronic renal failure but declines any hemodialysis at that becomes a necessity Elevated BNP with volume overload responded to IV Lasix Diabetes mellitus insulin-dependent labile control Hypertension Hyperlipidemia Depression Plan: Proceed on with left below the knee amputation by Dr. Chicas on Saturday since benefits outweigh the risks at this current time Monitor creatinine Maintain antibiotics Monitor closely Diagnosis/Problems Diagnosis/Problems (1) Diabetic ulcer of left foot Status: Acute Qualifiers: Diabetic foot ulcer location: unspecified part of foot Diabetes mellitus type: type 2 Non-pressure ulcer stage: with necrosis of bone Qualified Codes : E11.621 - Type 2 diabetes mellitus with foot ulcer; L97.524 - Non-pressure chronic ulcer of other part of left foot with necrosis of bone (2) CKD (chronic kidney disease) stage 3, GFR 30-59 ml/min Status: Chronic (3) Anemia in chronic kidney disease Status: Chronic Qualifiers: Chronic kidney disease stage: stage 4 (severe) Qualified Codes: N18.4 - Chronic kidney disease, stage 4 (severe); D63.1 - Anemia in chronic kidney disease (4) Ischemic cardiomyopathy Status: Chronic (5) Essential (primary) hypertension Status: Chronic (6) PVD (peripheral vascular disease) Status: Chronic (7) Gangrene Status: Acute (8) Dyspnea Status: Acute Qualifiers: Dyspnea type: dyspnea on exertion Qualified Codes: R06.09 - Other forms of dyspnea (9) Insulin dependent diabetes mellitus Status: Chronic Clinical Quality Measures DVT/VTE Risk/Contraindication: Risk Factor Score Per Nursin RFS Level Per Nursing on Admit: 4+=Very High EDITH TRONCOSO MEDICAL STUDENT 04/03/18 1055: Subjective Subjective/Events-last exam Pt has no new complaints, states he feels like his legs are getting better and less swollen due to the lasix. SOB resolved Surgery scheduled for tomorrow Pt remains afebrile ABIODUN SOLANO DO Apr 03, 2018 09:59 EDITH TRONCOSO MEDICAL STUDENT Apr 03, 2018 10:55
[2018-04-03] MEDS ORDERED: SALINE NASAL SPRAY (OCEAN) 45 ML BTL PRN (11:30)
[2018-04-03] MEDS ORDERED: POLYETHYLENE GLYCOL 17 GM (MIRALAX) PACK PO NR (11:30)
[2018-04-03 12:00] VITALS: BP 129/63
--- NOTE | 2018-04-03 14:16 | Progress Note ---
Subjective Date Seen by a Provider: Apr 03, 2018 Time Seen by a Provider: 11:30 Subjective/Events-last exam patient states is doing well. Has cough but doing significantly better. He has no complaints. Patient ready to have below knee amputation tomorrow. no nausea vomiting fever sweats chills shortness of breath or chest pain. Focused Exam Lactate Level 03/31/18 14:50: Lactic Acid Level 1.34 Objective Exam Vital Signs Date Time Temp Pulse Resp B/P (MAP) Pulse Ox O2 Delivery O2 Flow Rate FiO2 04/03/18 09:27 94 Room Air 04/03/18 08:00 Room Air 04/03/18 08:00 96.5 74 18 112/60 (77) 97 Room Air 04/03/18 07:05 53 04/03/18 04:45 97.0 61 18 115/69 (84) 98 Room Air 04/03/18 01:00 57 04/03/18 00:14 98.7 58 18 138/76 (96) 99 Room Air 04/02/18 20:12 97 Room Air 04/02/18 20:00 Room Air 04/02/18 20:00 98.4 61 18 124/67 (86) 96 Room Air 04/02/18 16:00 98.2 55 18 132/72 (92) 96 Room Air I & O 04/03/18 07:00 Intake Total 1535 ml Output Total 2940 ml Balance -1405 ml Capillary Refill : General Appearance: No Apparent Distress, WD/WN, Chronically ill HEENT: PERRL/EOMI Neck: Full Range of Motion, Normal Inspection, Non Tender, Supple, Carotid Bruit Respiratory: Chest Non Tender, Lungs Clear, Normal Breath Sounds, No Accessory Muscle Use, No Respiratory Distress Cardiovascular: Regular Rate, Rhythm Gastrointestinal: non tender, soft Extremity: Pedal Edema, Other (left lower extremity with wound to the left lateral aspect of the heel) Neurologic/Psychiatric: Alert, Oriented x3, No Motor/Sensory Deficits, Normal Mood/Affect Skin: Normal Color, Warm/Dry Lymphatic: No Adenopathy Results Lab Laboratory Tests 04/02/18 15:47: Glucometer 210H, Vancomycin Level Trough 28.5*H 04/02/18 21:30: Glucometer 233H 04/03/18 05:00: Vancomycin Level Trough 21.8H, White Blood Count 7.6, Red Blood Count 4.55, Hemoglobin 13.2L, Hematocrit 41, Mean Corpuscular Volume 89, Mean Corpuscular Hemoglobin 29, Mean Corpuscular Hemoglobin Concent 33, Red Cell Distribution Width 17.1H, Platelet Count 178, Mean Platelet Volume 10.8H, Neutrophils (%) ( Auto) 72, Lymphocytes (%) (Auto) 15, Monocytes (%) (Auto) 8, Eosinophils (%) ( Auto) 3, Basophils (%) (Auto) 1, Neutrophils # (Auto) 5.5, Lymphocytes # (Auto) 1.2, Monocytes # (Auto) 0.6, Eosinophils # (Auto) 0.3, Basophils # (Auto) 0.1, Sodium Level 138, Potassium Level 4.3, Chloride Level 98, Carbon Dioxide Level 26, Anion Gap 14, Blood Urea Nitrogen 41H, Creatinine 3.31H, Estimat Glomerular Filtration Rate 19, BUN/Creatinine Ratio 12, Glucose Level 79, Calcium Level 8.4L, Corrected Calcium 9.3, Total Bilirubin 1.1H, Aspartate Amino Transf (AST/ SGOT) 22, Alanine Aminotransferase (ALT/SGPT) 18, Alkaline Phosphatase 56, Total Protein 5.8L, Albumin 2.9L 04/03/18 10:59: Glucometer 230H Microbiology 03/31/18 Blood Culture - Preliminary, Resulted No growth Assessment/Plan Assessment/Plan Assessment/Plan Left lateral heel foot diabetic ulcer chronically infected Chronic renal failure Diabetes mellitus insulin-dependent Hypertension Hyperlipidemia patient has been Plavix on hold patient was discuss risk and benefits of having a left below-knee amputation performed which she states he's been recommended multiple times He understands risk and benefits of procedure wishes to proceed. patient to be medically optimized and he is scheduled for Tomorrow for left below-knee amputation all other indicated procedures. Clinical Quality Measures DVT/VTE Risk/Contraindication: Risk Factor Score Per Nursin RFS Level Per Nursing on Admit: 4+=Very High LEIGH ANN FUCHS DO Apr 03, 2018 14:15
[2018-04-03] MEDS ORDERED: TROUGH ORDER-PHARMACY XX NR (15:00)
[2018-04-03 16:00] VITALS: BP 121/74
--- NOTE | 2018-04-03 16:29 | NUR ---
Pastoral Care Visit.
[2018-04-03 20:00] VITALS: BP 141/88
[2018-04-03] MEDS: ATORVASTATIN 80 MG (LIPITOR) TABLET PO SCH (21:22)
[2018-04-03] MEDS: ALPRAZolam 0.25 MG (XANAX) TAB PO PRN (21:25)
[2018-04-04] VITALS (7 sets, daily range): BP systolic 127–160; BP diastolic 65–93
[2018-04-04] MEDS: fentaNYL INJECTION 100 MCG/2 ML AMP IVP PRN (00:28)
[2018-04-04 04:28] LABS: BASOPHILS % (AUTO) 1 % (0-10); EOSINOPHILS # (AUTO) 0.2 10^3/uL (0.0-0.3); EOSINOPHILS % (AUTO) 3 % (0-10); HEMATOCRIT 38 % (40-54); HEMOGLOBIN 12.2 G/DL (13.3-17.7); LYMPHOCYTES # (AUTO) 1.2 X 10^3 (1.0-4.0); LYMPHOCYTES % (AUTO) 20 % (12-44); MEAN CORPUSCULAR HEMOGLOBIN 29 PG (25-34); MEAN CORPUSCULAR HGB CONC 32 G/DL (32-36); MEAN CORPUSCULAR VOLUME 90 FL (80-99); MEAN PLATELET VOLUME 11.2 FL (7.4-10.4); MONOCYTES # (AUTO) 0.5 X 10^3 (0.0-1.0); MONOCYTES % (AUTO) 7 % (0-12); NEUTROPHILS # (AUTO) 4.4 X 10^3 (1.8-7.8); NEUTROPHILS % (AUTO) 69 % (42-75); PLATELET COUNT 146 10^3/uL (130-400); RED BLOOD COUNT 4.22 10^6/uL (4.35-5.85); RED CELL DISTRIBUTION WIDTH 16.5 % (10.0-14.5); WHITE BLOOD COUNT 6.3 10^3/uL (4.3-11.0)
[2018-04-04 04:48] LABS: ALBUMIN 2.8 GM/DL (3.2-4.5); BILIRUBIN,TOTAL 0.7 MG/DL (0.1-1.0); CALCIUM 8.2 MG/DL (8.5-10.1); CREATININE SERUM 2.86 MG/DL (0.60-1.30); MAGNESIUM 1.9 MG/DL (1.8-2.4); POTASSIUM 4.2 MMOL/L (3.6-5.0); TOTAL PROTEIN 6.1 GM/DL (6.4-8.2)
[2018-04-04] MEDS: inSUlin ASPART (NovoLOG) 1 UNIT/0.01 ML (CHARGE PER UNIT) SC SCH ×4 (04:53→20:18)
[2018-04-04] MEDS: LEVOTHYROXINE 100 MCG (LEVOTHROID) TAB PO SCH (05:23)
[2018-04-04] MEDS: NS IV 1000 ML 1,000 ML IV SCH (05:24)
[2018-04-04] MEDS: CATHETER FLUSH 10 ML SYR IV SCH ×3 (05:24→20:18)
[2018-04-04] MEDS: RT-ALBUTEROL/IPRATROPIUM 3 ML (DUONEB) VIAL INH SCH ×2 (07:50→18:51)
--- NOTE | 2018-04-04 08:40 | Cardiology Progress Note ---
Subjective Date Seen by Provider: Apr 04, 2018 Time Seen by Provider: 08:38 Subjective/Events-last exam patient is laying down in bed, scheduled for BKA today. Denied any chest pain Review of Systems General: No Chills, No Night Sweats, No Fatigue, No Malaise, No Appetite, No Other HEENT: No Head Aches, No Visual Changes, No Eye Pain, No Ear Pain, No Dysphasia , No Sinus Congestion, No Post Nasal Drip, No Sore Throat, No Other Pulmonary: No Dyspnea, No Cough, No Pleuritic Chest Pain, No Other Cardiovascular: No: Chest Pain, Palpitations, Orthopnea, Paroxysmal Noc. Dyspnea, Edema, Lt Headedness, Other Objective-Cardiology Exam Last Set of Vital Signs Vital Signs 04/03/18 04/04/18 20:25 08:00 Temp 97.8 Pulse 66 Resp 18 B/P (MAP) 135/65 (88) Pulse Ox 96 O2 Delivery Room Air FiO2 21 Capillary Refill : I&O Intake and Output 04/04/18 00:00 Intake Total 1570 ml Output Total 1100 ml Balance 470 ml Intake Oral 1570 ml Output Urine Total 1100 ml # Voids 2 # Bowel Movements 1 General: Alert, Oriented X3, Cooperative HEENT: Atraumatic, PERRLA Neck: Supple, No JVD, No Thyromegaly Lungs: Clear to Auscultation, Normal Air Movement Heart: Regular Rate, Normal S1, Normal S2, No Murmurs Abdomen: Normal Bowel Sounds, Soft, No Tenderness, No Hepatosplenomegaly, No Masses Extremities: No Clubbing, No Cyanosis, Other (ischemic foot ulcer) Skin: No Rashes, No Breakdown, No Significant Lesion Neuro: Normal Gait, Normal Speech, Normal Tone, Sensation Intact Psych/Mental Status: Mental Status NL, Mood NL Results Lab Laboratory Tests 04/04/18 04:18 A/P-Cardiology Admission Diagnosis Ischemic foot ulcer Peripheral arterial disease Coronary artery disease Congestive heart failure, chronic compensated left ventricular systolic dysfunction, ischemic cardiomyopathy with ejection fraction 20-25 percent Assessment/Plan Nonhealing foot ulcer, recurrent, extensive peripheral arterial disease, underwent multiple interventions in the past, failing percutaneous intervention with persistent nonhealing wound, scheduled for BKA today Acute on chronic renal failure, worsening renal function, has been followed by a access rn. I will start her on IV fluid and monitor renal function Coronary artery disease, history of CABG 4 in 2008 with cardiac catheterization June 02, [address] Arvizu revealing severe three-vessel [place] coronary artery disease with non-bypassed RCA, patent OSBORNE to LAD, patent vein graft to first diag, patent vein graft to first OM. There was occluded jump graft to the second obtuse marginal branch with successful PCI using bare-metal vision stent 3.0 x 28 mm to the second OM. At that time was reported patient staged intervention to the right and third OM branch after gallbladder removal by Dr. Arvizu, had stress test done at [facility] within then and no further intervention was made. Patient was to be scheduled for [facility] with intervention after healing of Left foot ulcer, however, patient did not follow up, Cardiac catheterization was carried out by Dr. Busch in January 2015 and reported as patent OSBORNE to the LAD vein graft to the diagonal artery and vein graft to the obtuse marginal artery, small vessel disease distally, the right coronary artery has severe diffuse disease, Dr. Busch felt that it is high risk for intervention at this time, medical therapy is recommended. Patient will require significant amount of stenting with limited benefit. Continue to monitor at this time Significant peripheral arterial disease, multiple intervention by Dr. Beebe in the past. Extensive workup in the past, angiogram was done on May 30, 2016 which showed on the right side subtotal occlusion of the anterior tibial artery , severe disease at the posterior tibial and peroneal artery and distal popliteal artery successful balloon angioplasty to the anterior tibial artery using 2.0 then 3.0 balloon with excellent results, balloon angioplasty to the popliteal artery using Lutonix 4.018 mm with excellent results. On July 02, 2016 patient was noted to have total occlusion of the anterior tibial artery of the left leg with balloon angioplasty using 3x100 balloon with excellent results. Return on July 04, 2016 and underwent intervention on the right lower extremity using Lutonix to the distal SFA 6 time 150 mm with excellent results. Patient has small vessel disease distally. On May 01, 2017 after having a nonhealing wound to the left heel. Was found to have total occlusion of the left anterior tibial artery, complex intervention using multiple wires and balloons with excellent results. Repeat angiogram was done on January 01, 2018 showing total occlusion of the anterior tibial artery with unsuccessful attempt to cross the lesion, I was able to do balloon angioplasty for severe disease of the peroneal artery. Patient still have severe stenosis at the distal SFA. Patient was referred to [facility], underwent angiogram on January 10, 2018 had left SFA angioplasty with drug-coated balloon, atherectomy of the anterior tibial artery with jet stream followed by angioplasty of the anterior tibial artery and peroneal artery with drug-coated balloons, angioplasty to the dorsalis pedis. Unsuccessful posterior tibial artery cannulation. His peripheral arterial disease In the small vessel at the right lower extremity is deemed inoperable at this time. Congestive heart failure, ischemic cardiomyopathy, persistent cardiomyopathy with ejection fraction 20-25 percent, last echocardiogram was done in July 2017. Status post single-chamber ICD implant. continue to monitor Paroxysmal atrial fibrillation-patient noted to have episodes of atrial fibrillation on his first ICD interrogation, longest episode up to one hour. continue on current medication including amiodarone and monitor Tobaccoism, reports recently quit smoking. Educated on importance of smoking cessation. History of port placement on the right side, status post retrieval after fractured port in June 2016 Hypertension, controlled, continue to monitor. Hyperlipidemia, was started on Lipitor 80 mg daily. Continue to monitor Diabetes mellitus, followed and monitored by primary care physician. Mild bilateral nonobstructive carotid artery stenosis, last carotid ultrasound was done in December 2017, continue to monitor Clinical Quality Measures DVT/VTE Risk/Contraindication: Risk Factor Score Per Nursin RFS Level Per Nursing on Admit: 4+=Very High JORDEN GREER MD Apr 04, 2018 08:40
[2018-04-04] MEDS: CARVEDILOL 3.125 MG (COREG) TABLET PO SCH ×2 (09:11→20:17)
[2018-04-04] MEDS: AMIODARONE 200 MG (CORDARONE) TAB PO SCH (09:11)
[2018-04-04] MEDS: POLYETHYLENE GLYCOL 17 GM (MIRALAX) PACK PO SCH ×3 (09:11→20:17)
[2018-04-04] MEDS: ISOSORBIDE MONONITRATE 30 MG (IMDUR) TAB PO SCH (09:11)
--- NOTE | 2018-04-04 10:38 | Progress Note-Hospitalist ---
Subjective HPI/CC On Admission Date Seen by Provider: Apr 04, 2018 Time Seen by Provider: 09:00 CC: Left diabetic ulcer infection HPI: This is a 57-year-old white male clinic patient of [facility] with a history of stage IV renal insufficiency, diabetes mellitus insulin-dependent and severe peripheral vascular disease with heart disease that has failed wound care for the past 4 years on the left foot and needs a left gsrpc-[id number] amputation but he was admitted for modification of risk factors including shortness of breath and wheezing found to have elevated BNP needing IV diuresis. Appreciate cardiology consultation and Dr. Chicas will plan on left below the knee amputation on Saturday. Patient is not interested in dialysis if that ever would be a requirement. Subjective/Events-last exam Patient ready for his left below the knee amputation. Patient has been off Plavix in preparation for the surgery Creatinine is improved to 2.8 since discontinuation of the broad-spectrum antibiotics Checked meds and labs Will likely provide wound care over the weekend and see if he needs inpatient rehabilitation or some sort a nursing facility Review of Systems General: Fatigue Objective Exam Vital Signs Vital Signs Date Time Temp Pulse Resp B/P (MAP) Pulse Ox O2 Delivery O2 Flow Rate FiO2 04/04/18 08:00 Room Air 04/04/18 08:00 97.8 66 18 135/65 (88) 96 04/03/18 20:25 21 Capillary Refill : General Appearance: No Apparent Distress, WD/WN, Chronically ill Respiratory: Chest Non Tender, Lungs Clear, Normal Breath Sounds, No Accessory Muscle Use, No Respiratory Distress Cardiovascular: Regular Rate, Rhythm, No Edema, No Gallop, No JVD, No Murmur, Normal Peripheral Pulses Neurologic/Psychiatric: Alert, Oriented x3, No Motor/Sensory Deficits, Normal Mood/Affect Results/Procedures Lab Laboratory Tests 04/04/18 04:18 Patient resulted labs reviewed. Assessment/Plan Assessment and Plan Assess & Plan/Chief Complaint Assessment: Left foot diabetic ulcer placed on empiric antibiotics before left below-the- knee of amputation scheduled for today per Dr Chicas Chronic renal failure but declines any hemodialysis at that becomes a necessity Elevated BNP with volume overload responded to IV Lasix Diabetes mellitus insulin-dependent labile control Hypertension Hyperlipidemia Depression Plan: Proceed on with left below the knee amputation by Dr. Chicas on Saturday since benefits outweigh the risks at this current time Monitor creatinine Maintain antibiotics Monitor closely Diagnosis/Problems Diagnosis/Problems (1) Diabetic ulcer of left foot Status: Acute Qualifiers: Diabetic foot ulcer location: unspecified part of foot Diabetes mellitus type: type 2 Non-pressure ulcer stage: with necrosis of bone Qualified Codes : E11.621 - Type 2 diabetes mellitus with foot ulcer; L97.524 - Non-pressure chronic ulcer of other part of left foot with necrosis of bone (2) CKD (chronic kidney disease) stage 3, GFR 30-59 ml/min Status: Chronic (3) Anemia in chronic kidney disease Status: Chronic Qualifiers: Chronic kidney disease stage: stage 4 (severe) Qualified Codes: N18.4 - Chronic kidney disease, stage 4 (severe); D63.1 - Anemia in chronic kidney disease (4) Ischemic cardiomyopathy Status: Chronic (5) Essential (primary) hypertension Status: Chronic (6) PVD (peripheral vascular disease) Status: Chronic (7) Gangrene Status: Acute (8) Dyspnea Status: Acute Qualifiers: Dyspnea type: dyspnea on exertion Qualified Codes: R06.09 - Other forms of dyspnea (9) Insulin dependent diabetes mellitus Status: Chronic Clinical Quality Measures DVT/VTE Risk/Contraindication: Risk Factor Score Per Nursin RFS Level Per Nursing on Admit: 4+=Very High ABIODUN SOLANO DO Apr 04, 2018 10:38
--- NOTE | 2018-04-04 10:40 | Progress Note ---
Subjective Date Seen by a Provider: Apr 04, 2018 Time Seen by a Provider: 10:38 Subjective/Events-last exam Patient ready for surgery today. No new complaints. Breathing better. Denies n/v fever sweats chills shortness of breath or chest pain. Objective Exam Vital Signs Date Time Temp Pulse Resp B/P (MAP) Pulse Ox O2 Delivery O2 Flow Rate FiO2 04/04/18 08:00 Room Air 04/04/18 08:00 97.8 66 18 135/65 (88) 96 Room Air 04/04/18 07:50 97 Room Air 04/04/18 03:53 97.9 62 18 140/80 (100) 98 Room Air 04/04/18 00:38 96.9 68 18 149/90 (109) 97 Room Air 04/03/18 20:25 95 Room Air 04/03/18 20:25 63 95 21 04/03/18 20:00 97.4 63 16 141/88 (105) 99 Room Air 04/03/18 20:00 Room Air 04/03/18 16:00 97.6 62 18 121/74 (90) 97 Room Air 04/03/18 12:00 97.1 59 18 129/63 (85) 97 Room Air I & O 04/04/18 07:00 Intake Total 1220 ml Output Total 1100 ml Balance 120 ml Capillary Refill : General Appearance: No Apparent Distress, WD/WN, Chronically ill HEENT: PERRL/EOMI Neck: Full Range of Motion, Normal Inspection, Non Tender, Supple, Carotid Bruit Respiratory: Chest Non Tender, Lungs Clear, Normal Breath Sounds, No Accessory Muscle Use, No Respiratory Distress Cardiovascular: Regular Rate, Rhythm Gastrointestinal: non tender, soft Extremity: Pedal Edema (improved), Other (left lower extremity with wound to the left lateral aspect of the heel) Neurologic/Psychiatric: Alert, Oriented x3, No Motor/Sensory Deficits, Normal Mood/Affect Skin: Normal Color, Warm/Dry Lymphatic: No Adenopathy Results Lab Laboratory Tests 04/03/18 10:59: Glucometer 230H 04/03/18 15:49: Glucometer 154H 04/03/18 20:42: Glucometer 200H 04/04/18 04:18: White Blood Count 6.3, Red Blood Count 4.22L, Hemoglobin 12.2L, Hematocrit 38L, Mean Corpuscular Volume 90, Mean Corpuscular Hemoglobin 29, Mean Corpuscular Hemoglobin Concent 32, Red Cell Distribution Width 16.5H, Platelet Count 146, Mean Platelet Volume 11.2H, Neutrophils (%) (Auto) 69, Lymphocytes (%) (Auto) 20 , Monocytes (%) (Auto) 7, Eosinophils (%) (Auto) 3, Basophils (%) (Auto) 1, Neutrophils # (Auto) 4.4, Lymphocytes # (Auto) 1.2, Monocytes # (Auto) 0.5, Eosinophils # (Auto) 0.2, Basophils # (Auto) 0.0, Sodium Level 135, Potassium Level 4.2, Chloride Level 102, Carbon Dioxide Level 24, Anion Gap 9, Blood Urea Nitrogen 36H, Creatinine 2.86#H, Estimat Glomerular Filtration Rate 23, BUN/ Creatinine Ratio 13, Glucose Level 164H, Calcium Level 8.2L, Corrected Calcium 9.2, Magnesium Level 1.9, Total Bilirubin 0.7, Aspartate Amino Transf (AST/SGOT ) 26, Alanine Aminotransferase (ALT/SGPT) 19, Alkaline Phosphatase 65, B-Type Natriuretic Peptide 2290.5H, Total Protein 6.1L, Albumin 2.8L Microbiology 03/31/18 Blood Culture - Preliminary, Resulted No growth Assessment/Plan Assessment/Plan Assessment/Plan Left lateral heel foot diabetic ulcer chronically infected Chronic renal failure Diabetes mellitus insulin-dependent Hypertension Hyperlipidemia patient has been Plavix on hold patient was discuss risk and benefits of having a left below-knee amputation performed which she states he's been recommended multiple times He understands risk and benefits of procedure wishes to proceed. left BKA today Clinical Quality Measures DVT/VTE Risk/Contraindication: Risk Factor Score Per Nursin RFS Level Per Nursing on Admit: 4+=Very High LEIGH ANN FUCHS DO Apr 04, 2018 10:40
[2018-04-04] MEDS ORDERED: ceFAZolin 2 GM IV Premixed 50 ML IV ONE (10:45)
[2018-04-04] MEDS ORDERED: proPOfol 200 MG/20 ML (DIPRIVAN) VIAL IV ONE (11:05)
[2018-04-04] MEDS ORDERED: SEVOFLURANE (ULTANE) 15 ML INHAL SOLN ONE ×7 (11:05→13:49)
[2018-04-04] MEDS ORDERED: MIDAZOLAM 2 MG/2 ML (VERSED) VIAL ONE (11:05)
[2018-04-04] MEDS ORDERED: ONDANSETRON 4 MG/2 ML (SDV) Z0FRAN ONE (11:05)
[2018-04-04] MEDS ORDERED: LIDOCAINE PF 2% 5 ML (XYLOCAINE) VIAL ONE (11:05)
[2018-04-04] MEDS ORDERED: fentaNYL INJECTION 100 MCG/2 ML AMP ONE (11:05)
--- NOTE | 2018-04-04 12:00 | NUR ---
PT IN ROUTE FOR SURGERY VIA BED ACCOMPANIED BY STAFF. THIS RN WILL WAIT PT'S RETURN
[2018-04-04] MEDS ORDERED: GLYCOPYRROLATE 0.2 MG/ML (ROBINUL) 2 ML VIAL ONE (13:38)
[2018-04-04] MEDS ORDERED: morphine INJ 10 MG/ML 1ML (SYR OR VIAL) IVP ONE (14:15)
[2018-04-04] MEDS ORDERED: ONDANSETRON 4 MG/2 ML (SDV) Z0FRAN IVP PRN (14:15)
[2018-04-04] MEDS ORDERED: LACTATED RINGERS 1,000 ML IV SCH (14:30)
--- NOTE | 2018-04-04 15:00 | NUR ---
PT RETURN TO FLOOR ROOM 407 VIA BED AT THIS TIME. REPORT RECEIVED FROM ANGEL GAMINO. 650 ML IN BAG OF LR INFUSING IN RIGHT GROSHONG AT THIS TIME. ABDS WRAPPED WITH COBAN TO LEFT STUMP, DRESSING DRY AND INTACT. PT DROWSY, EASY TO AROUSE. THIS RN WILL RESUME PT CARE AT THIS TIME.
--- NOTE | 2018-04-04 15:20 | NUR ---
THIS RN CONTACTED DR FUCHS IN REGARDS TO POST SURGERY ORDERS. NEW ORDERS RECEIVED. IN ADDITION NEW ORDER TO RESUME ALL PREVIOUS ORDERS PRIOR TO SURGERY. HOLD LOVENOX AND PLAVIX FOR 2 DAYS RESUME ON 04/06/18 AFTER 1530.
[2018-04-04] MEDS ORDERED: fentaNYL INJECTION 5,000 MCG in EMPTY IV BAG (PVC) 1 EA IV SCH (15:30)
[2018-04-04] MEDS ORDERED: fentaNYL PCA 1,000 MCG/NS 80 ML (TOTAL VOLUME 100 ML) INJ SCH ×2 (15:30)
--- NOTE | 2018-04-04 15:31 | Progress Note-Post Operative ---
Post-Operative Progess Note Surgeon (s)/Powerhouse Tender (s) Surgeon LEIGH ANN FUCHS DO Powerhouse Tender: Dr. Ramirez Pre-Operative Diagnosis left lower extremity diabetic chronic infected wound Post-Operative Diagnosis same Procedure & Operative Findings Date of Procedure 04/04/18 Procedure Performed/Findings left bka Anesthesia Type general Estimated Blood Loss Estimated blood loss (mL): min Specimens/Packing Specimens Removed left lower extremity LEIGH ANN FUCHS DO Apr 04, 2018 15:31
[2018-04-04] MEDS: ATORVASTATIN 80 MG (LIPITOR) TABLET PO SCH (20:17)
[2018-04-05] MEDS: NS IV 1000 ML 1,000 ML IV SCH ×3 (01:40→21:01)
--- NOTE | 2018-04-05 01:48 | OPERATIVE REPORT ---
DATE OF SERVICE: 04/04/2018 PREOPERATIVE DIAGNOSIS: Left lower extremity diabetic chronic infected wound. POSTOPERATIVE DIAGNOSIS: Left lower extremity diabetic chronic infected wound. PROCEDURE: Left below knee amputation. SURGEON: Leigh Ann Chicas DO BRAID MAKER: Dr. Ramirez, assisted in retraction, dissection and closure. ESTIMATED BLOOD LOSS: Minimal. COMPLICATIONS: None. INDICATIONS: The patient is a 57-year-old male who has had a wound on the left lateral aspect of his heel he has had for approximately 2 years. The patient has had this chronically infected. He underwent multiple vascular interventions along with wound care and has been recommended by multiple physicians to have a below knee amputation. We discussed risks and benefits of procedure and wished to proceed with procedure. Consent was signed on the chart. DESCRIPTION OF PROCEDURE: The patient was taken to the operating suite, was prepped and draped in sterile fashion. Surgical pause was performed. A fishmouth incision was made just inferior to the tibial plateau and a tourniquet was turned on proximal to the incision. Cautery dissection was then used to dissect the medial and lateral muscles until the tibia and fibula were encountered. The tibia and fibula were then dissected around. The bone saw was then used to cut through the tibia and also shape the anterior aspect. Rongeur and rasp was also used to smooth out the edges. The fibula was then also cut approximately 2 cm proximal to this where the tibia was cut as well. The posterior muscles continued to be dissected through until the left lower extremity is completely removed. Once the vessels were encountered during this process, these were tied off with 0 Vicryls. The tourniquet was then taken off and any bleeding was controlled with either ties or cautery dissection. The muscles were then used as a cushion over the bone and were secured with 0 Vicryl sutures on to the more proximal fascia. The skin flaps were then closed using 1-0 Prolene sutures and pily. The area was then washed and dried and sterile bandage was applied. The patient tolerated the procedure well without any complications and taken to recovery room in stable condition. Job ID: [id number] DocumentID: [id number] Dictated Date: 04/04/2018 16:13:18 [employer]aculture Contractor Date: 04/05/2018 01:47:23 Dictated By: LEIGH ANN CHICAS DO
--- NOTE | 2018-04-05 02:08 | NUR ---
This RN called Dr. Ramirez in reference to the patient not being to urinate. Bladder scan shows [address] Ramirez ordered straight cath once and then recheck in 6 hours. Order is repeated and confirmed.
--- NOTE | 2018-04-05 02:48 | NUR ---
Patient is straight cathed with 800 mls returned.
[2018-04-05 04:38] LABS: BASOPHILS % (AUTO) 0 % (0-10); EOSINOPHILS # (AUTO) 0.1 10^3/uL (0.0-0.3); EOSINOPHILS % (AUTO) 1 % (0-10); HEMATOCRIT 41 % (40-54); LYMPHOCYTES # (AUTO) 0.8 X 10^3 (1.0-4.0); LYMPHOCYTES % (AUTO) 8 % (12-44); MEAN CORPUSCULAR HEMOGLOBIN 29 PG (25-34); MEAN CORPUSCULAR HGB CONC 32 G/DL (32-36); MEAN CORPUSCULAR VOLUME 90 FL (80-99); MEAN PLATELET VOLUME 11.8 FL (7.4-10.4); MONOCYTES # (AUTO) 0.5 X 10^3 (0.0-1.0); MONOCYTES % (AUTO) 6 % (0-12); NEUTROPHILS # (AUTO) 8.4 X 10^3 (1.8-7.8); NEUTROPHILS % (AUTO) 85 % (42-75); PLATELET COUNT 166 10^3/uL (130-400); RED BLOOD COUNT 4.52 10^6/uL (4.35-5.85); RED CELL DISTRIBUTION WIDTH 17.1 % (10.0-14.5); WHITE BLOOD COUNT 9.9 10^3/uL (4.3-11.0)
[2018-04-05 04:51] VITALS: BP 154/91
[2018-04-05 05:00] LABS: ALBUMIN 3.2 GM/DL (3.2-4.5); BILIRUBIN,TOTAL 1.1 MG/DL (0.1-1.0); CALCIUM 8.7 MG/DL (8.5-10.1); CREATININE SERUM 2.47 MG/DL (0.60-1.30); POTASSIUM 4.6 MMOL/L (3.6-5.0); TOTAL PROTEIN 6.7 GM/DL (6.4-8.2)
[2018-04-05] MEDS: CATHETER FLUSH 10 ML SYR IV SCH ×3 (05:56→21:01)
[2018-04-05] MEDS: LEVOTHYROXINE 100 MCG (LEVOTHROID) TAB PO SCH (05:56)
[2018-04-05] MEDS: inSUlin ASPART (NovoLOG) 1 UNIT/0.01 ML (CHARGE PER UNIT) SC SCH ×4 (05:56→21:00)
[2018-04-05] MEDS: RT-ALBUTEROL/IPRATROPIUM 3 ML (DUONEB) VIAL INH SCH ×2 (07:33→19:20)
[2018-04-05 07:51] VITALS: BP 167/88
--- NOTE | 2018-04-05 09:01 | Anesthesia-General Post-Op ---
General Patient Condition Mental Status/LOC: Same as Preop Cardiovascular: Satisfactory Nausea/Vomiting: Absent Respiratory: Satisfactory Pain: Controlled Complications: Absent Post Op Complications Complications None Follow Up Care/Instructions Patient Instructions None needed. Anesthesia/Patient Condition Patient Condition Patient is doing well, no complaints, stable vital signs, no apparent adverse anesthesia problems. No complications reported per nursing. LINDA HARO CRNA Apr 05, 2018 09:01
[2018-04-05] MEDS: ISOSORBIDE MONONITRATE 30 MG (IMDUR) TAB PO SCH (09:15)
[2018-04-05] MEDS: POLYETHYLENE GLYCOL 17 GM (MIRALAX) PACK PO SCH ×3 (09:15→19:39)
[2018-04-05] MEDS: AMIODARONE 200 MG (CORDARONE) TAB PO SCH (09:15)
[2018-04-05] MEDS: CARVEDILOL 3.125 MG (COREG) TABLET PO SCH ×2 (09:15→21:01)
--- NOTE | 2018-04-05 09:40 | NUR ---
PATIENT BLADDER SCANNED AT THIS TIME RESULTS SHOW 488CC IN BLADDER. PATIENT STRAIGHT CATHED AT THIS TIME WITH 550CC OF CLEAR, LIGHT JORDAN URINE RETURNED. WILL NOTIFY DR. LIGHT OF RESULTS.
[2018-04-05 11:24] VITALS: BP 139/78
--- NOTE | 2018-04-05 12:05 | Progress Note-Hospitalist ---
Subjective HPI/CC On Admission Date Seen by Provider: Apr 05, 2018 Time Seen by Provider: 11:45 CC: Left diabetic ulcer infection HPI: This is a 57-year-old white male clinic patient of mine with a history of stage IV renal insufficiency, diabetes mellitus insulin-dependent and severe peripheral vascular disease with heart disease that has failed wound care for the past 4 years on the left foot and needs a left ivwtq-jok-[id number] amputation but he was admitted for modification of risk factors including shortness of breath and wheezing found to have elevated BNP needing IV diuresis. Appreciate cardiology consultation and Dr. Chicas will plan on left below the knee amputation on Saturday. Patient is not interested in dialysis if that ever would be a requirement. Subjective/Events-last exam Underwent an uncomplicated left below the knee amputation yesterday POD # 1 Fentanyl DESOLDERER not providing adequate pain relief Creatinine is improved and will initiate Dilaudid DESOLDERER standard protocol Required catheter in and out x2 due to urinary retention of which she has a history of that after every surgery he has had Denies any issues except does not have an appetite and has not eaten much for the past 2 days. Blood sugars noted Overall improved Off antibiotics We will monitor closely Review of Systems General: Fatigue Musculoskeletal: leg pain Objective Exam Vital Signs Vital Signs Date Time Temp Pulse Resp B/P (MAP) Pulse Ox O2 Delivery O2 Flow Rate FiO2 04/05/18 11:24 98.2 73 18 139/78 (98) 96 Room Air 04/03/18 20:25 21 Capillary Refill : General Appearance: No Apparent Distress, WD/WN, Chronically ill Respiratory: Chest Non Tender, Lungs Clear, Normal Breath Sounds, No Accessory Muscle Use, No Respiratory Distress Cardiovascular: Regular Rate, Rhythm, No Edema, No Gallop, No JVD, No Murmur, Normal Peripheral Pulses Extremity: Other (left BKA dressing in place) Neurologic/Psychiatric: Alert, Oriented x3, No Motor/Sensory Deficits, Normal Mood/Affect Skin: Normal Color, Warm/Dry Results/Procedures Lab Laboratory Tests 04/05/18 04:20 Patient resulted labs reviewed. Assessment/Plan Assessment and Plan Assess & Plan/Chief Complaint Assessment: Left foot diabetic ulcer failed wound care x 4 years s/p empiric antibiotics before left [id number] of amputation performed yesterday by Dr Chicas POD # 1 Chronic renal failure but declines any hemodialysis at that becomes a necessity Elevated BNP with volume overload responded to IV Lasix doing well now Diabetes mellitus insulin-dependent labile control Hypertension Hyperlipidemia Depression Post op urinary retention receiving in/out catheters Plan: IRF evaluation in prep for return to independent living Monitor creatinine Monitor closely Change to Dilaudid DESOLDERER and DC Fentanyl DESOLDERER Diagnosis/Problems Diagnosis/Problems (1) Amput below knee, unilat Status: Acute (2) Diabetic ulcer of left foot Status: Resolved Qualifiers: Diabetic foot ulcer location: unspecified part of foot Diabetes mellitus type: type 2 Non-pressure ulcer stage: with necrosis of bone Qualified Codes : E11.621 - Type 2 diabetes mellitus with foot ulcer; L97.524 - Non-pressure chronic ulcer of other part of left foot with necrosis of bone Resolution Date/Time: 04/05/18 @ 14:56 (3) CKD (chronic kidney disease) stage 3, GFR 30-59 ml/min Status: Chronic (4) Anemia in chronic kidney disease Status: Chronic Qualifiers: Chronic kidney disease stage: stage 4 (severe) Qualified Codes: N18.4 - Chronic kidney disease, stage 4 (severe); D63.1 - Anemia in chronic kidney disease (5) Ischemic cardiomyopathy Status: Chronic (6) Essential (primary) hypertension Status: Chronic (7) PVD (peripheral vascular disease) Status: Chronic (8) Gangrene Status: Acute (9) Dyspnea Status: Acute Qualifiers: Dyspnea type: dyspnea on exertion Qualified Codes: R06.09 - Other forms of dyspnea (10) Insulin dependent diabetes mellitus Status: Chronic (11) Urinary retention Status: Acute Clinical Quality Measures DVT/VTE Risk/Contraindication: Risk Factor Score Per Nursin RFS Level Per Nursing on Admit: 4+=Very High ABIODUN SOLANO DO Apr 05, 2018 12:05
[2018-04-05] MEDS ORDERED: HYDROmorphone 2 MG/ML VIAL (DILAUDID) IV PRN (12:15)
--- NOTE | 2018-04-05 12:44 | NUR ---
DR. SOLANO ORDERS DILAUDID TIMING ADJUSTER PER PROTOCOL. THIS RN ENTERED ORDERS INTO [facility] AND ALLERGY FOR OXYCODONE WAS FLAGGED. THIS RN ASKED PATIENT WHAT HE ALLERGY REACTION TO OXYCODONE WAS. PATIENT STATES. " IT MADE ME HALLUCINATE." THIS RN INFORMED PATIENT THAT HE IS ORDERED TO BE STARTED ON DILAUDID. PATIENT SAID HE HAD NEVER HAD DILAUDID BEFORE BUT THAT HE WOULD "LET YOU KNOW IF I HAVE ANY FUNNY BUSINESS GOING ON WHEN I TAKE THE NEW MED."
[2018-04-05] MEDS ORDERED: HYDROmorphone PF INJECTION 10 MG in NS (IVPB) 50 ML IV SCH (12:45)
[2018-04-05] MEDS ORDERED: HYDROmorphone 20 MG/NS 100 ML PCA IV PRN ×2 (13:15)
--- NOTE | 2018-04-05 13:40 | NUR ---
FENTANYL SERVICE SUPERINTENDENT CHANGED TO DILAUDID SERVICE SUPERINTENDENT PER DR. SOLANO. NEW DILAUDID SERVICE SUPERINTENDENT SET UP AND UNUSED FENTANYL 18.3ML WASTED AT THIS TIME WITH STEVENSON THOMAS.
--- NOTE | 2018-04-05 14:44 | NUR ---
DR. LIGHT HERE AT THIS TIME IN PATIENT'S ROOM WITH THIS RN. DR. LE ASKS THIS RN SETTING OF THREAD SPOOLER THIS RN STATES ITS DILAUDID 0.3MG EVERY 10 MINS WITH A 4MG [address] LIGHT ORDERS TO DROP FREQUENCY TO EVERY 30MINUTES AND TO ORDER END TIDAL CO2 MONITOR CONTINUOUSLY. WILL CARRY OUT ORDERS AND CONTINUE TO MONITOR.
--- NOTE | 2018-04-05 14:57 | Progress Note ---
Subjective Time Seen by a Provider: 14:31 Subjective/Events-last exam Pt seen and examined, actually sleeping because of change to a Dilaudid PROSTHODONTIST. Pt was complaining of severe leg pain not controlled by Fentanyl PROSTHODONTIST; it is better now. He is tolerating diet. Review of Systems Pulmonary: No Dyspnea, No Cough Cardiovascular: No: Chest Pain, Palpitations Objective Exam Vital Signs Date Time Temp Pulse Resp B/P (MAP) Pulse Ox O2 Delivery O2 Flow Rate FiO2 04/05/18 11:24 98.2 73 18 139/78 (98) 96 Room Air 04/05/18 08:10 16 04/05/18 08:10 Room Air 04/05/18 07:51 98.3 79 18 167/88 (114) 96 Room Air 04/05/18 07:33 97 Room Air 04/05/18 04:51 98.6 71 18 154/91 (112) 95 Room Air 04/04/18 23:25 98.7 73 19 146/93 (110) 97 Room Air 04/04/18 20:00 Room Air 04/04/18 19:25 97.8 72 18 160/88 (112) 98 Room Air 04/04/18 18:51 Room Air 04/04/18 16:00 97.6 73 18 127/74 (91) 98 Room Air 04/04/18 15:45 16 I & O 04/05/18 07:00 Intake Total 3470 ml Output Total 2100 ml Balance 1370 ml Capillary Refill : General Appearance: No Apparent Distress, WD/WN HEENT: PERRL/EOMI Respiratory: Chest Non Tender, Lungs Clear, Normal Breath Sounds, No Accessory Muscle Use, No Respiratory Distress Cardiovascular: Regular Rate, Rhythm, No Murmur Gastrointestinal: non tender, soft Extremity: Other (Left BKA) Results Lab Laboratory Tests 04/04/18 16:49: Glucometer 123H 04/04/18 19:52: Glucometer 130H 04/05/18 04:20: White Blood Count 9.9, Red Blood Count 4.52, Hemoglobin 13.0L, Hematocrit 41, Mean Corpuscular Volume 90, Mean Corpuscular Hemoglobin 29, Mean Corpuscular Hemoglobin Concent 32, Red Cell Distribution Width 17.1H, Platelet Count 166, Mean Platelet Volume 11.8H, Neutrophils (%) (Auto) 85H, Lymphocytes (%) (Auto) 8L, Monocytes (%) (Auto) 6, Eosinophils (%) (Auto) 1, Basophils (%) (Auto) 0, Neutrophils # (Auto) 8.4H, Lymphocytes # (Auto) 0.8L, Monocytes # (Auto) 0.5, Eosinophils # (Auto) 0.1, Basophils # (Auto) 0.0, Sodium Level 136, Potassium Level 4.6, Chloride Level 104, Carbon Dioxide Level 18L, Anion Gap 14, Blood Urea Nitrogen 28H, Creatinine 2.47H, Estimat Glomerular Filtration Rate 27, BUN/ Creatinine Ratio 11, Glucose Level 139H, Calcium Level 8.7, Corrected Calcium 9.3, Total Bilirubin 1.1H, Aspartate Amino Transf (AST/SGOT) 31, Alanine Aminotransferase (ALT/SGPT) 19, Alkaline Phosphatase 76, Total Protein 6.7, Albumin 3.2 04/05/18 10:56: Glucometer 144H Microbiology 03/31/18 Blood Culture - Preliminary, Resulted No growth 04/03/18 MRSA Screen - Final, Complete MRSA not isolated Assessment/Plan Assessment/Plan Assessment/Plan S/P L BKA Chronic renal failure Diabetes mellitus insulin-dependent Hypertension Hyperlipidemia Pt doing better now that he is on Dilaudid PROSTHODONTIST, will extend time in between self dosing. Plan to take down the compressive wrap tomorrow. Clinical Quality Measures DVT/VTE Risk/Contraindication: Risk Factor Score Per Nursin RFS Level Per Nursing on Admit: 4+=Very High CLEO LIGHT DO Apr 05, 2018 14:57
[2018-04-05 16:00] VITALS: BP 149/88
--- NOTE | 2018-04-05 18:28 | Progress Note-Cardiology ---
Cardiology SOAP Progress Note Subjective: No cp or palp or syncope Chronic exertional shortness of breath No current symptoms Objective: I&O/Vital Signs 04/05/18 04/05/18 04/05/18 04/05/18 07:33 07:51 08:10 08:10 Temp 98.3 Pulse 79 Resp 18 16 B/P (MAP) 167/88 (114) Pulse Ox 97 96 O2 Delivery Room Air Room Air Room Air 04/05/18 04/05/18 11:24 16:00 Temp 98.2 97.8 Pulse 73 72 Resp 18 24 B/P (MAP) 139/78 (98) 149/88 (108) Pulse Ox 96 98 O2 Delivery Room Air Room Air 04/05/18 00:00 Intake Total 1970 ml Output Total 1300 ml Balance 670 ml Weight (Pounds): 208 Weight (Ounces): 0.0 Weight (Calculated Kilograms): 94.224896 Constitutional: AAO x 3, well-developed, well-nourished Respiratory: No accessory muscle use; other (fair to good bilat air entry, diminished at the bases, prolonged exp phase) Cardiovascular: regular rate-rhythm, S1 and S2, systolic murmur (soft MAR at card base) Gastrointestional: No tender; soft; No guarding, No rebound; audible bowel sounds Extremities: other (L BKA, R foot amputation); No clubbing, No cyanosis Neurologic/Psychiatric: oriented x 3, grossly intact, power is 5/5 both on sides Skin: No rash on exposed areas, No ulcerations on exposed areas Results/Procedures: Labs Laboratory Tests 04/04/18 19:52: Glucometer 130H 04/05/18 04:20: White Blood Count 9.9, Red Blood Count 4.52, Hemoglobin 13.0L, Hematocrit 41, Mean Corpuscular Volume 90, Mean Corpuscular Hemoglobin 29, Mean Corpuscular Hemoglobin Concent 32, Red Cell Distribution Width 17.1H, Platelet Count 166, Mean Platelet Volume 11.8H, Neutrophils (%) (Auto) 85H, Lymphocytes (%) (Auto) 8L, Monocytes (%) (Auto) 6, Eosinophils (%) (Auto) 1, Basophils (%) (Auto) 0, Neutrophils # (Auto) 8.4H, Lymphocytes # (Auto) 0.8L, Monocytes # (Auto) 0.5, Eosinophils # (Auto) 0.1, Basophils # (Auto) 0.0, Sodium Level 136, Potassium Level 4.6, Chloride Level 104, Carbon Dioxide Level 18L, Anion Gap 14, Blood Urea Nitrogen 28H, Creatinine 2.47H, Estimat Glomerular Filtration Rate 27, BUN/ Creatinine Ratio 11, Glucose Level 139H, Calcium Level 8.7, Corrected Calcium 9.3, Total Bilirubin 1.1H, Aspartate Amino Transf (AST/SGOT) 31, Alanine Aminotransferase (ALT/SGPT) 19, Alkaline Phosphatase 76, Total Protein 6.7, Albumin 3.2 04/05/18 10:56: Glucometer 144H 04/05/18 15:38: Glucometer 153H Microbiology 03/31/18 Blood Culture - Preliminary, Resulted No growth 04/03/18 MRSA Screen - Final, Complete MRSA not isolated Laboratory Tests 04/04/18 04:18 04/05/18 04:20 A/P: Assessment: PAD with h/o failed interventions. S/p L BKA on 04/04/18 and prior R foot amputation Acute on chronic renal failure Coronary artery disease, history of CABG 4 in 2008 with cardiac catheterization June 02, [address] Arvizu revealing severe three-vessel [place] coronary artery disease with non-bypassed RCA, patent OSBORNE to LAD, patent vein graft to first diag, patent vein graft to first OM. There was occluded jump graft to the second obtuse marginal branch with successful PCI using bare-metal vision stent 3.0 x 28 mm to the second OM. At that time was reported patient staged intervention to the right and third OM branch after gallbladder removal by Dr. Arvizu, had stress test done at within then and no further intervention was made. Patient was to be scheduled for [facility] with intervention after healing of Left foot ulcer, however, patient did not follow up, Cardiac catheterization was carried out by Dr. Busch in January 2015 and reported as patent OSBORNE to the LAD vein graft to the diagonal artery and vein graft to the obtuse marginal artery, small vessel disease distally, the right coronary artery has severe diffuse disease, Dr. Busch felt that it is high risk for intervention at this time, medical therapy was recommended Congestive heart failure, ischemic cardiomyopathy, persistent cardiomyopathy with ejection fraction 20-25 percent, last echocardiogram was done in July 2017. Status post single-chamber ICD implant Paroxysmal atrial fibrillation - noted to have episodes of atrial fibrillation on his first ICD interrogation. Apparently maintaining NSR on oral amiodarone, Dr Roy monitoring Tobaccoism, reports recently quit smoking. Has been advised to continue to refrain from tobacco use History of port placement on the right side, status post retrieval after fractured port in June 2016 Hypertension, controlled Hyperlipidemia, treated with atorvastatin Diabetes mellitus, followed and monitored by primary care physician. Mild bilateral nonobstructive carotid artery stenosis, last carotid ultrasound was done in December 2017 Plan: * I reviewed his records, spoke with him, examined him, and answered questions * Complex management due to multiple comorbidities * Monitor labs closely Physician Assessment Physician Assessment PAD with h/o failed interventions. S/p L BKA on 04/04/18. Has a h/o prior R foot amputation Acute on chronic renal failure Coronary artery disease, history of CABG 4 in 2008 with cardiac catheterization June 02, [address] Arvizu revealing severe three-vessel [place] coronary artery disease with non-bypassed RCA, patent OSBORNE to LAD, patent vein graft to first diag, patent vein graft to first OM. There was occluded jump graft to the second obtuse marginal branch with successful PCI using bare-metal vision stent 3.0 x 28 mm to the second OM. At that time was reported patient staged intervention to the right and third OM branch after gallbladder removal by Dr. Arvizu, had stress test done at within then and no further intervention was made. Patient was to be scheduled for [facility] with intervention after healing of Left foot ulcer, however, patient did not follow up, Cardiac catheterization was carried out by Dr. Busch in January 2015 and reported as patent OSBORNE to the LAD vein graft to the diagonal artery and vein graft to the obtuse marginal artery, small vessel disease distally, the right coronary artery has severe diffuse disease, Dr. Busch felt that it is high risk for intervention at this time, medical therapy is recommended. Patient will require significant amount of stenting with limited benefit. Continue to monitor at this time Significant peripheral arterial disease, multiple intervention by Dr. Beebe in the past. Extensive workup in the past, angiogram was done on May 30, 2016 which showed on the right side subtotal occlusion of the anterior tibial artery , severe disease at the posterior tibial and peroneal artery and distal popliteal artery successful balloon angioplasty to the anterior tibial artery using 2.0 then 3.0 balloon with excellent results, balloon angioplasty to the popliteal artery using Lutonix 4.018 mm with excellent results. On July 02, 2016 patient was noted to have total occlusion of the anterior tibial artery of the left leg with balloon angioplasty using 3x100 balloon with excellent results. Return on July 04, 2016 and underwent intervention on the right lower extremity using Lutonix to the distal SFA 6 time 150 mm with excellent results. Patient has small vessel disease distally. On May 01, 2017 after having a nonhealing wound to the left heel. Was found to have total occlusion of the left anterior tibial artery, complex intervention using multiple wires and balloons with excellent results. Repeat angiogram was done on January 01, 2018 showing total occlusion of the anterior tibial artery with unsuccessful attempt to cross the lesion, I was able to do balloon angioplasty for severe disease of the peroneal artery. Patient still have severe stenosis at the distal SFA. Patient was referred to [facility], underwent angiogram on January 10, 2018 had left SFA angioplasty with drug-coated balloon, atherectomy of the anterior tibial artery with jet stream followed by angioplasty of the anterior tibial artery and peroneal artery with drug-coated balloons, angioplasty to the dorsalis pedis. Unsuccessful posterior tibial artery cannulation. His peripheral arterial disease In the small vessel at the right lower extremity is deemed inoperable at this time. Congestive heart failure, ischemic cardiomyopathy, persistent cardiomyopathy with ejection fraction 20-25 percent, last echocardiogram was done in July 2017. Status post single-chamber ICD implant. continue to monitor Paroxysmal atrial fibrillation-patient noted to have episodes of atrial fibrillation on his first ICD interrogation, longest episode up to one hour. continue on current medication including amiodarone and monitor Tobaccoism, reports recently quit smoking. Educated on importance of smoking cessation. History of port placement on the right side, status post retrieval after fractured port in June 2016 Hypertension, controlled, continue to monitor. Hyperlipidemia, was started on Lipitor 80 mg daily. Continue to monitor Diabetes mellitus, followed and monitored by primary care physician. Mild bilateral nonobstructive carotid artery stenosis, last carotid ultrasound was done in December 2017, continue to monitor MILAGRO SÁNCHEZ MD FACP [facility] CCDS Apr 05, 2018 18:28
[2018-04-05] MEDS ORDERED: LIDOCAINE UROJET 2% GEL 10 ML PKG ONE (18:45)
--- NOTE | 2018-04-05 19:10 | NUR ---
BLADDER SCAN SHOWED 408CC. STRAIGHT CATHED PATIENT AT THIS TIME WITH 400CC CLEAR YELLOW URINE RETURNED.
[2018-04-05 20:00] VITALS: BP 118/65
[2018-04-05] MEDS: ATORVASTATIN 80 MG (LIPITOR) TABLET PO SCH (21:01)
[2018-04-05 23:18] VITALS: BP 132/70
[2018-04-06 04:00] VITALS: BP 144/84
[2018-04-06] MEDS ORDERED: LIDOCAINE UROJET 2% GEL 10 ML PKG ONE (04:47)
[2018-04-06 05:24] LABS: BASOPHILS % (AUTO) 0 % (0-10); EOSINOPHILS # (AUTO) 0.1 10^3/uL (0.0-0.3); EOSINOPHILS % (AUTO) 1 % (0-10); HEMATOCRIT 37 % (40-54); HEMOGLOBIN 11.4 G/DL (13.3-17.7); LYMPHOCYTES % (AUTO) 12 % (12-44); MEAN CORPUSCULAR HEMOGLOBIN 28 PG (25-34); MEAN CORPUSCULAR HGB CONC 31 G/DL (32-36); MEAN CORPUSCULAR VOLUME 91 FL (80-99); MEAN PLATELET VOLUME 11.7 FL (7.4-10.4); MONOCYTES # (AUTO) 0.8 X 10^3 (0.0-1.0); MONOCYTES % (AUTO) 9 % (0-12); NEUTROPHILS # (AUTO) 6.5 X 10^3 (1.8-7.8); NEUTROPHILS % (AUTO) 78 % (42-75); PLATELET COUNT 136 10^3/uL (130-400); RED BLOOD COUNT 4.01 10^6/uL (4.35-5.85); RED CELL DISTRIBUTION WIDTH 16.7 % (10.0-14.5); WHITE BLOOD COUNT 8.4 10^3/uL (4.3-11.0)
[2018-04-06] MEDS: LEVOTHYROXINE 100 MCG (LEVOTHROID) TAB PO SCH (05:28)
[2018-04-06] MEDS: inSUlin ASPART (NovoLOG) 1 UNIT/0.01 ML (CHARGE PER UNIT) SC SCH ×4 (05:28→19:54)
[2018-04-06] MEDS: CATHETER FLUSH 10 ML SYR IV SCH ×3 (05:28→21:33)
[2018-04-06 05:44] LABS: BILIRUBIN,TOTAL 1.2 MG/DL (0.1-1.0); CALCIUM 8.6 MG/DL (8.5-10.1); CREATININE SERUM 2.4 MG/DL (0.60-1.30); POTASSIUM 4.4 MMOL/L (3.6-5.0); TOTAL PROTEIN 6.3 GM/DL (6.4-8.2)
[2018-04-06 07:34] VITALS: BP 150/80
[2018-04-06] MEDS: NS IV 1000 ML 1,000 ML IV SCH ×2 (09:24→15:36)
[2018-04-06] MEDS: POLYETHYLENE GLYCOL 17 GM (MIRALAX) PACK PO SCH ×3 (09:24→21:33)
[2018-04-06] MEDS: AMIODARONE 200 MG (CORDARONE) TAB PO SCH (09:47)
[2018-04-06] MEDS: ISOSORBIDE MONONITRATE 30 MG (IMDUR) TAB PO SCH (09:47)
[2018-04-06] MEDS: CARVEDILOL 3.125 MG (COREG) TABLET PO SCH (09:47)
[2018-04-06] MEDS: RT-ALBUTEROL/IPRATROPIUM 3 ML (DUONEB) VIAL INH SCH ×2 (10:18→19:51)
--- NOTE | 2018-04-06 11:32 | Progress Note-Cardiology ---
Cardiology SOAP Progress Note Subjective: No cp or palp or syncope Is concerned that bp has been high Objective: I&O/Vital Signs 04/06/18 04/06/18 04/06/18 04/06/18 01:54 04:00 07:34 10:22 Temp 97.9 97.9 Pulse 76 76 60 Resp 22 22 B/P (MAP) 144/84 (104) 150/80 (103) Pulse Ox 95 93 95 O2 Delivery Room Air Room Air Room Air FiO2 21 04/06/18 00:00 Intake Total 1710 ml Output Total 400 ml Balance 1310 ml Weight (Pounds): 208 Weight (Ounces): 0.0 Weight (Calculated Kilograms): 94.962182 Constitutional: AAO x 3, well-developed, well-nourished Respiratory: No accessory muscle use; other (fair to good bilat air entry, diminished at the bases, prolonged exp phase) Cardiovascular: regular rate-rhythm, S1 and S2, systolic murmur (soft MAR at card base) Gastrointestional: No tender; soft; No guarding, No rebound; audible bowel sounds Extremities: other (L BKA, R foot amputation); No clubbing, No cyanosis Neurologic/Psychiatric: oriented x 3, grossly intact, power is 5/5 both on sides Skin: No rash on exposed areas, No ulcerations on exposed areas Results/Procedures: Labs Laboratory Tests 04/05/18 15:38: Glucometer 153H 04/05/18 19:44: Glucometer 169H 04/06/18 04:46: White Blood Count 8.4, Red Blood Count 4.01L, Hemoglobin 11.4L, Hematocrit 37L, Mean Corpuscular Volume 91, Mean Corpuscular Hemoglobin 28, Mean Corpuscular Hemoglobin Concent 31L, Red Cell Distribution Width 16.7H, Platelet Count 136, Mean Platelet Volume 11.7H, Neutrophils (%) (Auto) 78H, Lymphocytes (%) (Auto) 12, Monocytes (%) (Auto) 9, Eosinophils (%) (Auto) 1, Basophils (%) (Auto) 0, Neutrophils # (Auto) 6.5, Lymphocytes # (Auto) 1.0, Monocytes # (Auto) 0.8, Eosinophils # (Auto) 0.1, Basophils # (Auto) 0.0, Sodium Level 133L, Potassium Level 4.4, Chloride Level 102, Carbon Dioxide Level 20L, Anion Gap 11, Blood Urea Nitrogen 26H, Creatinine 2.40H, Estimat Glomerular Filtration Rate 28, BUN/ Creatinine Ratio 11, Glucose Level 156H, Calcium Level 8.6, Corrected Calcium 9.4, Total Bilirubin 1.2H, Aspartate Amino Transf (AST/SGOT) 36H, Alanine Aminotransferase (ALT/SGPT) 19, Alkaline Phosphatase 78, Total Protein 6.3L, Albumin 3.0L 04/06/18 05:25: Glucometer 155H 04/06/18 11:10: Glucometer 155H Microbiology 03/31/18 Blood Culture - Preliminary, Resulted No growth 04/03/18 MRSA Screen - Final, Complete MRSA not isolated Laboratory Tests 04/05/18 04:20 04/06/18 04:46 A/P: Assessment: PAD with h/o failed interventions. S/p L BKA on 04/04/18 and prior R foot amputation Acute on chronic renal failure Coronary artery disease, history of CABG 4 in 2008 with cardiac catheterization June 02, [address] Arvizu revealing severe three-vessel [place] coronary artery disease with non-bypassed RCA, patent OSBOR[place] to LAD, patent vein graft to first diag, patent vein graft to first OM. There was occluded jump graft to the second obtuse marginal branch with successful PCI using bare-metal vision stent 3.0 x 28 mm to the second OM. At that time was reported patient staged intervention to the right and third OM branch after gallbladder removal by Dr. Arvizu, had stress test done at [facility] within then and no further intervention was made. Patient was to be scheduled for [facility] with intervention after healing of Left foot ulcer, however, patient did not follow up, Cardiac catheterization was carried out by Dr. Busch in January 2015 and reported as patent OSBORNE to the LAD vein graft to the diagonal artery and vein graft to the obtuse marginal artery, small vessel disease distally, the right coronary artery has severe diffuse disease, Dr. Busch felt that it is high risk for intervention at this time, medical therapy was recommended Congestive heart failure, ischemic cardiomyopathy, persistent cardiomyopathy with ejection fraction 20-25 percent, last echocardiogram was done in July 2017. Status post single-chamber ICD implant Paroxysmal atrial fibrillation - noted to have episodes of atrial fibrillation on his first ICD interrogation. Apparently maintaining NSR on oral amiodarone, Dr Roy monitoring Tobaccoism, reports recently quit smoking. Has been advised to continue to refrain from tobacco use History of port placement on the right side, status post retrieval after fractured port in June 2016 Hypertension Hyperlipidemia, treated with atorvastatin Diabetes mellitus, followed and monitored by primary care physician. Mild bilateral nonobstructive carotid artery stenosis, last carotid ultrasound was done in December 2017 Plan: * Increase bb for better bp control * Monitor labs MILAGRO SÁNCHEZ MD FACP [facility] CCDS Apr 06, 2018 11:31
[2018-04-06 12:33] VITALS: BP 134/80
--- NOTE | 2018-04-06 13:09 | NUR ---
DR. LIGHT IN ROOM WITH PATIENT AND THIS RN AT THIS TIME. DR. LIGHT IS TAKING DOWN PATIENT POST SURGICAL DRESSING OF BKA. DR. LIGHT EXAMINES SURGICAL INCISION AND NOTES THAT "IT BLEED A LITTLE BIT BUT IT LOOKS LIKE IT STOPPED." DR. LIGHT RE-DRESSED PATIENT'S SURGICAL WOUND. DR. 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 THIS RN ALSO INFORMS DR. LIGHT THAT PATIENT WAS STRAIGHT CATHED MULTIPLE TIMES IN A 24 HR PERIOD AND PATIENT STRAIGHT CATHED THIS THIS AM. STATES OKAY TO PLACE CELESTE. WILL CARRY OUT ORDERS AND CONTINUE TO MONITOR.
--- NOTE | 2018-04-06 13:25 | Progress Note-Hospitalist ---
Progress Note Progress Notes/Assess & Plan Date Seen 04/06/18 Time Seen by Provider: 13:22 Assessment & Plan The patient is a 57-year-old long-term diabetic with a chronic nonhealing wound to his left foot. He underwent a left BKA amputation on 04/04. He reports today that he feels well enough. His operative pain has been better controlled with a change in medication. Physical exam: He is alert and oriented. Lungs are clear to auscultation. CV is regular without murmur. Extremities show a left BKA amputation. The dressings are clean. Impression: Diabetes mellitus type II. 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 3.chronic nonhealing wound post BKA amputation 04/04. Plan: Look to begin rehabilitation efforts tomorrow. BARAK COVINGTON MD Apr 06, 2018 13:25
--- NOTE | 2018-04-06 13:42 | NUR ---
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 CHANGE IN SETTINGS WITNESSED BY STEVENSON THOMAS
--- NOTE | 2018-04-06 13:56 | Progress Note ---
Subjective Time Seen by a Provider: 12:05 Subjective/Events-last exam Pt seen and examined, still complaining of leg pain but controlled with [employer]. He is also having urinary retention. Review of Systems General: No Chills, No Night Sweats Pulmonary: No Dyspnea, No Cough Cardiovascular: No: Chest Pain, Palpitations Objective Exam Vital Signs Date Time Temp Pulse Resp B/P (MAP) Pulse Ox O2 Delivery O2 Flow Rate FiO2 04/06/18 13:42 22 04/06/18 12:33 98.3 68 22 134/80 (98) 97 Room Air 04/06/18 10:22 60 95 21 04/06/18 08:15 Room Air 04/06/18 07:34 97.9 76 22 150/80 (103) 93 Room Air 04/06/18 04:00 97.9 76 22 144/84 (104) 95 Room Air 04/06/18 01:54 Room Air 04/05/18 23:18 97.8 74 24 132/70 (90) 96 Room Air 04/05/18 21:19 Room Air 04/05/18 20:00 Room Air 04/05/18 20:00 97.9 77 22 118/65 (82) 95 Room Air 04/05/18 19:20 95 Room Air 04/05/18 18:42 24 04/05/18 16:00 97.8 72 24 149/88 (108) 98 Room Air I & O 04/06/18 07:00 Intake Total 2160 ml Output Total 700 ml Balance 1460 ml Capillary Refill : General Appearance: No Apparent Distress, WD/WN HEENT: PERRL/EOMI Respiratory: Chest Non Tender, Lungs Clear, Normal Breath Sounds, No Accessory Muscle Use, No Respiratory Distress Cardiovascular: Regular Rate, Rhythm, No Murmur Gastrointestinal: non tender, soft Extremity: Other (left BKA incision is c/d/i, area around incision looks healthy) Skin: Normal Color, Warm/Dry Results Lab Laboratory Tests 04/05/18 15:38: Glucometer 153H 04/05/18 19:44: Glucometer 169H 04/06/18 04:46: White Blood Count 8.4, Red Blood Count 4.01L, Hemoglobin 11.4L, Hematocrit 37L, Mean Corpuscular Volume 91, Mean Corpuscular Hemoglobin 28, Mean Corpuscular Hemoglobin Concent 31L, Red Cell Distribution Width 16.7H, Platelet Count 136, Mean Platelet Volume 11.7H, Neutrophils (%) (Auto) 78H, Lymphocytes (%) (Auto) 12, Monocytes (%) (Auto) 9, Eosinophils (%) (Auto) 1, Basophils (%) (Auto) 0, Neutrophils # (Auto) 6.5, Lymphocytes # (Auto) 1.0, Monocytes # (Auto) 0.8, Eosinophils # (Auto) 0.1, Basophils # (Auto) 0.0, Sodium Level 133L, Potassium Level 4.4, Chloride Level 102, Carbon Dioxide Level 20L, Anion Gap 11, Blood Urea Nitrogen 26H, Creatinine 2.40H, Estimat Glomerular Filtration Rate 28, BUN/ Creatinine Ratio 11, Glucose Level 156H, Calcium Level 8.6, Corrected Calcium 9.4, Total Bilirubin 1.2H, Aspartate Amino Transf (AST/SGOT) 36H, Alanine Aminotransferase (ALT/SGPT) 19, Alkaline Phosphatase 78, Total Protein 6.3L, Albumin 3.0L 04/06/18 05:25: Glucometer 155H 04/06/18 11:10: Glucometer 155H Microbiology 03/31/18 Blood Culture - Preliminary, Resulted No growth 04/03/18 MRSA Screen - Final, Complete MRSA not isolated Assessment/Plan Assessment/Plan Assessment/Plan S/P L BKA Chronic renal failure Diabetes mellitus insulin-dependent Hypertension Hyperlipidemia Pt doing better now that he is on Dilaudid [employer], will decrease dose. Pt had johnson placed for Urinary retention. Clinical Quality Measures DVT/VTE Risk/Contraindication: Risk Factor Score Per Nursin RFS Level Per Nursing on Admit: 4+=Very High CLEO LIGHT DO Apr 06, 2018 13:56
[2018-04-06 16:00] VITALS: BP 140/82
[2018-04-06 20:00] VITALS: BP 147/88
[2018-04-06] MEDS: CARVEDILOL 6.25 MG (COREG) TAB PO SCH (21:34)
[2018-04-06] MEDS: ATORVASTATIN 80 MG (LIPITOR) TABLET PO SCH (21:34)
[2018-04-06 23:56] VITALS: BP 138/90
[2018-04-07] MEDS: NS IV 1000 ML 1,000 ML IV SCH (03:00)
[2018-04-07 04:06] VITALS: BP 123/78
[2018-04-07 05:38] LABS: BASOPHILS % (AUTO) 0 % (0-10); EOSINOPHILS # (AUTO) 0.1 10^3/uL (0.0-0.3); EOSINOPHILS % (AUTO) 1 % (0-10); HEMATOCRIT 34 % (40-54); HEMOGLOBIN 11.3 G/DL (13.3-17.7); LYMPHOCYTES % (AUTO) 11 % (12-44); MEAN CORPUSCULAR HEMOGLOBIN 30 PG (25-34); MEAN CORPUSCULAR HGB CONC 33 G/DL (32-36); MEAN CORPUSCULAR VOLUME 90 FL (80-99); MEAN PLATELET VOLUME 11.4 FL (7.4-10.4); MONOCYTES % (AUTO) 11 % (0-12); NEUTROPHILS # (AUTO) 7.2 X 10^3 (1.8-7.8); NEUTROPHILS % (AUTO) 78 % (42-75); PLATELET COUNT 144 10^3/uL (130-400); RED BLOOD COUNT 3.78 10^6/uL (4.35-5.85); RED CELL DISTRIBUTION WIDTH 17.2 % (10.0-14.5); WHITE BLOOD COUNT 9.3 10^3/uL (4.3-11.0)
[2018-04-07] MEDS: CATHETER FLUSH 10 ML SYR IV SCH (05:38)
[2018-04-07] MEDS: LEVOTHYROXINE 100 MCG (LEVOTHROID) TAB PO SCH (05:38)
[2018-04-07] MEDS: inSUlin ASPART (NovoLOG) 1 UNIT/0.01 ML (CHARGE PER UNIT) SC SCH ×2 (05:39→11:11)
[2018-04-07 05:56] LABS: ALBUMIN 2.7 GM/DL (3.2-4.5); BILIRUBIN,TOTAL 1.1 MG/DL (0.1-1.0); CALCIUM 8.5 MG/DL (8.5-10.1); CREATININE SERUM 2.27 MG/DL (0.60-1.30); POTASSIUM 4.6 MMOL/L (3.6-5.0); TOTAL PROTEIN 5.9 GM/DL (6.4-8.2)
[2018-04-07 07:48] VITALS: BP 148/84
[2018-04-07] MEDS: RT-ALBUTEROL/IPRATROPIUM 3 ML (DUONEB) VIAL INH SCH (07:50)
--- NOTE | 2018-04-07 08:24 | Cardiology Progress Note ---
Subjective Date Seen by Provider: Apr 07, 2018 Time Seen by Provider: 08:21 Subjective/Events-last exam Patient is sitting up in bed. C/o leg pain. Denies any chest pain or increased dyspnea. Review of Systems General: No Night Sweats, No Fatigue, No Malaise HEENT: No Visual Changes, No Dysphasia Pulmonary: No Dyspnea, No Cough Cardiovascular: No: Chest Pain, Palpitations, Orthopnea Gastrointestinal: No: Nausea, Vomiting, Abdominal Pain Genitourinary: No Dysuria, No Frequency Musculoskeletal: leg pain; No: neck pain, back pain Neurological: No: Weakness, Numbness, Change in speech, Confusion Objective-Cardiology Exam Last Set of Vital Signs Vital Signs 04/06/18 04/07/18 04/07/18 10:22 07:48 07:50 Temp 98.9 Pulse 70 Resp 20 B/P (MAP) 148/84 (105) Pulse Ox 99 O2 Delivery Room Air FiO2 21 Capillary Refill : I&O Intake and Output 04/07/18 00:00 Intake Total 1510 ml Output Total 850 ml Balance 660 ml Intake Oral 1510 ml Output Urine Total 850 ml General: Alert, Oriented X3, Cooperative HEENT: Atraumatic, PERRLA Neck: Supple, No JVD, No Thyromegaly Lungs: Clear to Auscultation, Normal Air Movement Heart: Regular Rate, Normal S1, Normal S2, No Murmurs Abdomen: Normal Bowel Sounds, Soft, No Tenderness, No Hepatosplenomegaly, No Masses Extremities: No Clubbing, No Cyanosis, Other (L BKA, dressing C/D/I) Skin: No Rashes, No Breakdown, No Significant Lesion Neuro: Normal Gait, Normal Speech, Normal Tone, Sensation Intact Psych/Mental Status: Mental Status NL, Mood NL Results Lab Laboratory Tests 04/07/18 05:30 A/P-Cardiology Admission Diagnosis Ischemic foot ulcer Peripheral arterial disease Coronary artery disease Congestive heart failure, chronic compensated left ventricular systolic dysfunction, ischemic cardiomyopathy with ejection fraction 20-25 percent Assessment/Plan Nonhealing foot ulcer, recurrent, extensive peripheral arterial disease, underwent multiple interventions in the past, failing percutaneous intervention with persistent nonhealing wound, s/p BKA on 04/04/18. Acute on chronic renal failure, has been followed by a hogshead stripper. Continue to monitor renal function Coronary artery disease, history of CABG 4 in 2008 with cardiac catheterization June 02, [address] Arvizu revealing severe three-vessel [place] coronary artery disease with non-bypassed RCA, patent OSBORNE to LAD, patent vein graft to first diag, patent vein graft to first OM. There was occluded jump graft to the second obtuse marginal branch with successful PCI using bare-metal vision stent 3.0 x 28 mm to the second OM. At that time was reported patient staged intervention to the right and third OM branch after gallbladder removal by Dr. Arvizu, had stress test done at [facility] within then and no further intervention was made. Patient was to be scheduled for [facility] with intervention after healing of Left foot ulcer, however, patient did not follow up, Cardiac catheterization was carried out by Dr. Busch in January 2015 and reported as patent OSBORNE to the LAD vein graft to the diagonal artery and vein graft to the obtuse marginal artery, small vessel disease distally, the right coronary artery has severe diffuse disease, Dr. Busch felt that it is high risk for intervention at this time, medical therapy is recommended. Patient will require significant amount of stenting with limited benefit. Continue to monitor at this time Significant peripheral arterial disease, multiple intervention by Dr. Beebe in the past. Extensive workup in the past, angiogram was done on May 30, 2016 which showed on the right side subtotal occlusion of the anterior tibial artery , severe disease at the posterior tibial and peroneal artery and distal popliteal artery successful balloon angioplasty to the anterior tibial artery using 2.0 then 3.0 balloon with excellent results, balloon angioplasty to the popliteal artery using Lutonix 4.018 mm with excellent results. On July 02, 2016 patient was noted to have total occlusion of the anterior tibial artery of the left leg with balloon angioplasty using 3x100 balloon with excellent results. Return on July 04, 2016 and underwent intervention on the right lower extremity using Lutonix to the distal SFA 6 time 150 mm with excellent results. Patient has small vessel disease distally. On May 01, 2017 after having a nonhealing wound to the left heel. Was found to have total occlusion of the left anterior tibial artery, complex intervention using multiple wires and balloons with excellent results. Repeat angiogram was done on January 01, 2018 showing total occlusion of the anterior tibial artery with unsuccessful attempt to cross the lesion, I was able to do balloon angioplasty for severe disease of the peroneal artery. Patient still have severe stenosis at the distal SFA. Patient was referred to [facility], underwent angiogram on January 10, 2018 had left SFA angioplasty with drug-coated balloon, atherectomy of the anterior tibial artery with jet stream followed by angioplasty of the anterior tibial artery and peroneal artery with drug-coated balloons, angioplasty to the dorsalis pedis. Unsuccessful posterior tibial artery cannulation. His peripheral arterial disease In the small vessel at the right lower extremity is deemed inoperable at this time. s/p Left BKA Congestive heart failure, ischemic cardiomyopathy,LV systolic dysfunction. Persistent cardiomyopathy with ejection fraction 20-25 percent, last echocardiogram was done in July 2017. Status post single-chamber ICD implant. Maintained on beta kathrin. Unable to tolerate NORMAN-I or ARB secondary to renal funtion. Continue to monitor Paroxysmal atrial fibrillation-patient noted to have episodes of atrial fibrillation on his first ICD interrogation, longest episode up to one hour. continue on current medication including amiodarone and monitor Tobaccoism, reports recently quit smoking. Educated on importance of smoking cessation. History of port placement on the right side, status post retrieval after fractured port in June 2016 Hypertension, controlled, continue to monitor. Hyperlipidemia, was started on Lipitor 80 mg daily. Continue to monitor Diabetes mellitus, followed and monitored by primary care physician. Mild bilateral nonobstructive carotid artery stenosis, last carotid ultrasound was done in December 2017, continue to monitor Clinical Quality Measures DVT/VTE Risk/Contraindication: Risk Factor Score Per Nursin RFS Level Per Nursing on Admit: 4+=Very High SHAYNA GRANDE Apr 07, 2018 08:24
[2018-04-07] MEDS: AMIODARONE 200 MG (CORDARONE) TAB PO SCH (08:56)
[2018-04-07] MEDS: ISOSORBIDE MONONITRATE 30 MG (IMDUR) TAB PO SCH (08:56)
[2018-04-07] MEDS: CARVEDILOL 6.25 MG (COREG) TAB PO SCH (08:56)
[2018-04-07] MEDS: POLYETHYLENE GLYCOL 17 GM (MIRALAX) PACK PO SCH (08:57)
--- NOTE | 2018-04-07 09:43 | Cardiology Progress Note ---
Subjective Date Seen by Provider: Apr 07, 2018 Time Seen by Provider: 09:36 Subjective/Events-last exam Patient is in bed, feeling better, no new complaint, no chest pain or shortness of breath Review of Systems General: No Chills, No Night Sweats, No Fatigue, No Malaise, No Appetite, No Other HEENT: No Head Aches, No Visual Changes, No Eye Pain, No Ear Pain, No Dysphasia , No Sinus Congestion, No Post Nasal Drip, No Sore Throat, No Other Pulmonary: No Dyspnea, No Cough, No Pleuritic Chest Pain, No Other Cardiovascular: No: Chest Pain, Palpitations, Orthopnea, Paroxysmal Noc. Dyspnea, Edema, Lt Headedness, Other Objective-Cardiology Exam Last Set of Vital Signs Vital Signs 04/06/18 04/07/18 04/07/18 10:22 07:48 07:50 Temp 98.9 Pulse 70 Resp 20 B/P (MAP) 148/84 (105) Pulse Ox 99 O2 Delivery Room Air FiO2 21 Capillary Refill : I&O Intake and Output 04/07/18 00:00 Intake Total 1510 ml Output Total 850 ml Balance 660 ml Intake Oral 1510 ml Output Urine Total 850 ml General: Alert, Oriented X3, Cooperative HEENT: Atraumatic, PERRLA Neck: Supple, No JVD, No Thyromegaly Lungs: Clear to Auscultation, Normal Air Movement Heart: Regular Rate, Normal S1, Normal S2, No Murmurs Abdomen: Normal Bowel Sounds, Soft, No Tenderness, No Hepatosplenomegaly, No Masses Extremities: No Clubbing, No Cyanosis, Other (L BKA, dressing C/D/I) Skin: No Rashes, No Significant Lesion Neuro: Normal Speech, Normal Tone, Sensation Intact Psych/Mental Status: Mental Status NL, Mood NL Results Lab Laboratory Tests 04/07/18 05:30 A/P-Cardiology Admission Diagnosis Ischemic foot ulcer Peripheral arterial disease Coronary artery disease Congestive heart failure, chronic compensated left ventricular systolic dysfunction, ischemic cardiomyopathy with ejection fraction 20-25 percent Assessment/Plan Nonhealing foot ulcer, recurrent, extensive peripheral arterial disease, underwent multiple interventions in the past, failing percutaneous intervention with persistent nonhealing wound, s/p left BKA on 04/04/18, history of right toes amputations Acute on chronic renal failure, 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 Arvizu revealing severe three-vessel [place] coronary artery disease with non-bypassed RCA, patent OSBORNE to LAD, patent vein graft to first diag, patent vein graft to first OM. There was occluded jump graft to the second obtuse marginal branch with successful PCI using bare-metal vision stent 3.0 x 28 mm to the second OM. At that time was reported patient staged intervention to the right and third OM branch after gallbladder removal by Dr. Arvizu, had stress test done at [facility] within then and no further intervention was made. Patient was to be scheduled for [facility] with intervention after healing of Left foot ulcer, however, patient did not follow up, Cardiac catheterization was carried out by Dr. Busch in January 2015 and reported as patent OSBORNE to the LAD vein graft to the diagonal artery and vein graft to the obtuse marginal artery, small vessel disease distally, the right coronary artery has severe diffuse disease, Dr. Busch felt that it is high risk for intervention at this time, medical therapy is recommended. Patient will require significant amount of stenting with limited benefit. Continue to monitor at this time Significant peripheral arterial disease, multiple intervention by Dr. Beebe in the past. Extensive workup in the past, angiogram was done on May 30, 2016 which showed on the right side subtotal occlusion of the anterior tibial artery , severe disease at the posterior tibial and peroneal artery and distal popliteal artery successful balloon angioplasty to the anterior tibial artery using 2.0 then 3.0 balloon with excellent results, balloon angioplasty to the popliteal artery using Lutonix 4.018 mm with excellent results. On July 02, 2016 patient was noted to have total occlusion of the anterior tibial artery of the left leg with balloon angioplasty using 3x100 balloon with excellent results. Return on July 04, 2016 and underwent intervention on the right lower extremity using Lutonix to the distal SFA 6 time 150 mm with excellent results. Patient has small vessel disease distally. On May 01, 2017 after having a nonhealing wound to the left heel. Was found to have total occlusion of the left anterior tibial artery, complex intervention using multiple wires and balloons with excellent results. Repeat angiogram was done on January 01, 2018 showing total occlusion of the anterior tibial artery with unsuccessful attempt to cross the lesion, I was able to do balloon angioplasty for severe disease of the peroneal artery. Patient still have severe stenosis at the distal SFA. Patient was referred to [facility], underwent angiogram on January 10, 2018 had left SFA angioplasty with drug-coated balloon, atherectomy of the anterior tibial artery with jet stream followed by angioplasty of the anterior tibial artery and peroneal artery with drug-coated balloons, angioplasty to the dorsalis pedis. Unsuccessful posterior tibial artery cannulation. His peripheral arterial disease In the small vessel at the right lower extremity is deemed inoperable at this time. s/p Left BKA Congestive heart failure, ischemic cardiomyopathy, LV systolic dysfunction. Persistent cardiomyopathy with ejection fraction 20-25 percent, last echocardiogram was done in July 2017. History of single-chamber ICD implant for primary prevention. Maintained on beta kathrin. Unable to tolerate NORMAN-I or ARB secondary to renal function. Continue to monitor Paroxysmal atrial fibrillation-patient noted to have episodes of atrial fibrillation on his first ICD interrogation, longest episode up to one hour. continue on current medication including amiodarone and monitor Tobaccoism, reports recently quit smoking. Educated on importance of smoking cessation. History of port placement on the right side, status post retrieval after fractured port in June 2016 Hypertension, controlled, continue to monitor. Hyperlipidemia, was started on Lipitor 80 mg daily. Continue to monitor Diabetes mellitus, followed and monitored by primary care physician. Mild bilateral nonobstructive carotid artery stenosis, last carotid ultrasound was done in December 2017, continue to monitor Clinical Quality Measures DVT/VTE Risk/Contraindication: Risk Factor Score Per Nursin RFS Level Per Nursing on Admit: 4+=Very High JORDEN GREER MD Apr 07, 2018 09:43
--- NOTE | 2018-04-07 09:44 | Discharge Summary-Hospitalist ---
ABIODUN SOLANO DO 04/07/18 0944: Diagnosis/Chief Complaint Date of Admission Mar 31, 2018 at 14:18 Date of Discharge Admission Diagnosis Assessment: Infected left foot diabetic ulcer in need of left below the knee amputation tomorrow by Dr. Chicas Congestive heart failure with elevated BNP Chronic renal failure and not a dialysis candidate due to his refusal if that becomes a necessity Severe peripheral vascular disease failed intervention for revascularization of the lower extremities and failed wound care for 4 years CAD previous bypass surgery Hypertension Hyperlipidemia Smoker Plan: IV diuresis Monitor creatinine IV antibiotics renal dose DVT prophylaxis Left below the knee amputation tomorrow Discharge Diagnosis (1) Amput below knee, unilat Status: Acute (2) Diabetic ulcer of left foot Status: Resolved (3) CKD (chronic kidney disease) stage 3, GFR 30-59 ml/min Status: Chronic (4) Anemia in chronic kidney disease Status: Chronic (5) Ischemic cardiomyopathy Status: Chronic (6) Essential (primary) hypertension Status: Chronic (7) PVD (peripheral vascular disease) Status: Chronic (8) Gangrene Status: Acute (9) Dyspnea Status: Acute (10) Insulin dependent diabetes mellitus Status: Chronic (11) Urinary retention Status: Acute Discharge Summary Discharge Physical Exam Allergies: Coded Allergies: oxycodone HCl (Verified Allergy, Unknown, HAS RECEIVED HYDROMORPHONE W/O ISSUE, 01/01/18) protamine (Verified Allergy, Unknown, 01/01/18) Vitals & I&Os Vital Signs Date Time Temp Pulse Resp B/P (MAP) Pulse Ox O2 Delivery O2 Flow Rate FiO2 04/07/18 08:00 Room Air 04/07/18 07:50 99 04/07/18 07:48 98.9 70 20 148/84 (105) 04/06/18 10:22 21 General Appearance: No Apparent Distress, WD/WN, Chronically ill Respiratory: Chest Non Tender, Lungs Clear, Normal Breath Sounds, No Accessory Muscle Use, No Respiratory Distress Cardiovascular: Regular Rate, Rhythm, No Edema, No Gallop, No JVD, No Murmur, Normal Peripheral Pulses Neurologic/Psychiatric: Alert, Oriented x3, No Motor/Sensory Deficits, Normal Mood/Affect Hospital Course Hospital course: patient had a lengthy hospital course with left DM foot ulcer infection placed empirically on IV Zosyn and Vanc until left BKA amputation was performed by Dr Chicas on 04/04/18 in an uncomplicated manner. Patient's creatinine had risen to 3.3 but at DC to IRF he was found to have creatinine of 2.2 his baseline. Patient required catheter in/out for urinary retention after surgery. Pt was deemed stable for IRF and orders were placed. Labs (last 24 hrs) Laboratory Tests 04/06/18 11:10: Glucometer 155H 04/06/18 15:34: Glucometer 170H 04/06/18 19:51: Glucometer 163H 04/07/18 05:04: Glucometer 148H 04/07/18 05:30: White Blood Count 9.3, Red Blood Count 3.78L, Hemoglobin 11.3L, Hematocrit 34L, Mean Corpuscular Volume 90, Mean Corpuscular Hemoglobin 30, Mean Corpuscular Hemoglobin Concent 33, Red Cell Distribution Width 17.2H, Platelet Count 144, Mean Platelet Volume 11.4H, Neutrophils (%) (Auto) 78H, Lymphocytes (%) (Auto) 11L, Monocytes (%) (Auto) 11, Eosinophils (%) (Auto) 1, Basophils (%) (Auto) 0, Neutrophils # (Auto) 7.2, Lymphocytes # (Auto) 1.0, Monocytes # (Auto) 1.0, Eosinophils # (Auto) 0.1, Basophils # (Auto) 0.0, Sodium Level 132L, Potassium Level 4.6, Chloride Level 102, Carbon Dioxide Level 18L, Anion Gap 12, Blood Urea Nitrogen 25H, Creatinine 2.27H, Estimat Glomerular Filtration Rate 30, BUN/ Creatinine Ratio 11, Glucose Level 149H, Calcium Level 8.5, Corrected Calcium 9.5, Total Bilirubin 1.1H, Aspartate Amino Transf (AST/SGOT) 36H, Alanine Aminotransferase (ALT/SGPT) 19, Alkaline Phosphatase 82, Total Protein 5.9L, Albumin 2.7L Microbiology 03/31/18 Blood Culture - Final, Complete No growth 04/03/18 MRSA Screen - Final, Complete MRSA not isolated Patient resulted labs reviewed. Pending Labs Laboratory Tests 04/07/18 05:04: Glucometer 148 04/07/18 05:30: White Blood Count 9.3, Red Blood Count 3.78, Hemoglobin 11.3, Hematocrit 34, Mean Corpuscular Volume 90, Mean Corpuscular Hemoglobin 30, Mean Corpuscular Hemoglobin Concent 33, Red Cell Distribution Width 17.2, Platelet Count 144, Mean Platelet Volume 11.4, Neutrophils (%) (Auto) 78, Lymphocytes (%) (Auto) 11 , Monocytes (%) (Auto) 11, Eosinophils (%) (Auto) 1, Basophils (%) (Auto) 0, Neutrophils # (Auto) 7.2, Lymphocytes # (Auto) 1.0, Monocytes # (Auto) 1.0, Eosinophils # (Auto) 0.1, Basophils # (Auto) 0.0, Sodium Level 132, Potassium Level 4.6, Chloride Level 102, Carbon Dioxide Level 18, Anion Gap 12, Blood Urea Nitrogen 25, Creatinine 2.27, Estimat Glomerular Filtration Rate 30, BUN/ Creatinine Ratio 11, Glucose Level 149, Calcium Level 8.5, Corrected Calcium 9.5 , Total Bilirubin 1.1, Aspartate Amino Transf (AST/SGOT) 36, Alanine Aminotransferase (ALT/SGPT) 19, Alkaline Phosphatase 82, Total Protein 5.9, Albumin 2.7 Discussion & Recommendations Discharge Planning: <30 minutes discharge planning Discharge Home Medications: Active Scripts Active Reported Atorvastatin Calcium 80 Mg Tablet 80 Mg PO DAILY Zoloft (Sertraline HCl) 50 Mg Tablet 50 Mg PO DAILY PRN LAST FILLED #30 18 Lasix (Furosemide) 40 Mg Tablet 40 Mg PO DAILY LAST FILLED #60 18 Coreg (Carvedilol) 3.125 Mg Tablet 3.125 Mg PO DAILY Cheratussin AC Syrup (Guaifenesin/Codeine Phosphate) 118 Ml Liquid 5 Ml PO Q4H PRN Levemir Flextouch (Insulin Detemir) 100 Unit/1 Ml Insuln.pen 14 Unit SQ DAILY Novolog Flexpen (Insulin Aspart) 300 Units/3 Ml Solution 12-16 Units SQ TIDAC Cefdinir 300 Mg Capsule 300 Mg PO BID 14 Days #28 FILLED 18 Hydrocodon-Acetaminophn 10-325 (Hydrocodone/Acetaminophen) 1 Each Tablet 1 Tab PO Q4H PRN Probiotic (L.acidoph & Paracasei,B.lactis) 1 Each Capsule 1 Cap PO BID Amiodarone HCl 200 Mg Tablet 200 Mg PO DAILY Isosorbide Mononitrate ER (Isosorbide Mononitrate) 30 Mg Tab.er.24h 30 Mg PO DAILY Levothyroxine Sodium 200 Mcg Tablet 200 Mcg PO DAILY Nitroglycerin 0.4 Mg Tab.subl 0.4 Mg SL UD PRN Clopidogrel (Clopidogrel Bisulfate) 75 Mg Tablet 75 Mg PO DAILY Aspirin EC (Aspirin) 81 Mg Tablet.dr 81 Mg PO DAILY Instructions to patient/family Please see electronic discharge instructions given to patient. Clinical Quality Measures DVT/VTE Risk/Contraindication: Risk Factor Score Per Nursin RFS Level Per Nursing on Admit: 4+=Very High EDITH TRONCOSO MEDICAL STUDENT 04/07/18 1004: Discharge Summary Discharge Physical Exam Allergies: Coded Allergies: oxycodone HCl (Verified Allergy, Unknown, HAS RECEIVED HYDROMORPHONE W/O ISSUE, 01/01/18) protamine (Verified Allergy, Unknown, 01/01/18) General Appearance: No Apparent Distress HEENT: PERRL/EOMI Respiratory: Chest Non Tender, Lungs Clear, No Respiratory Distress Cardiovascular: Regular Rate, Rhythm Extremity: Other (left BKA) Hospital Course this is a 57 year old male with Hx of DM, CAD, CHF, CKD, PVD who was admitted for SOB and possible PNA for medical optimization before left BKA. Pt was given empric IV Vanc. Pt was found to have elevated BNP and was given IV lasix. Pt had left BKA on 04/04. Pain was controlled with Dilauded HUMAN SERVICE TECHNICIAN. Pt stable at this time and will discharge patient to rehab. Problem Qualifiers (1) Diabetic ulcer of left foot: Diabetic foot ulcer location: unspecified part of foot Diabetes mellitus type : type 2 Non-pressure ulcer stage: with necrosis of bone Qualified Codes: E11.621 - Type 2 diabetes mellitus with foot ulcer; L97.524 - Non-pressure chronic ulcer of other part of left foot with necrosis of bone (2) Anemia in chronic kidney disease: Chronic kidney disease stage: stage 4 (severe) Qualified Codes: N18.4 - Chronic kidney disease, stage 4 (severe); D63.1 - Anemia in chronic kidney disease (3) Dyspnea: Dyspnea type: dyspnea on exertion Qualified Codes: R06.09 - Other forms of dyspnea ABIODUN SOLANO DO Apr 07, 2018 09:44 EDITH TRONCOSO MEDICAL STUDENT Apr 07, 2018 10:04
[2018-04-07] MEDS ORDERED: HYDROmorphone 2 MG/ML VIAL (DILAUDID) IV PRN (09:45)
--- NOTE | 2018-04-07 10:23 | NUR ---
TENANT RELATIONS COORDINATOR discontinued. 58mL of Dilaudid wasted witnessed by Heather Foss RN
[2018-04-07] MEDS ORDERED: ENOXAPARIN 40 MG/0.4 ML (LOVENOX) SYR SC SCH (11:00)
--- NOTE | 2018-04-07 11:14 | NUR ---
Pt. going to ARU. Report called to Flaquita GAMINO. PT in room to gather belongings and take patient to 2nd floor via wheelchair.
== END 2018-04-07 11:00 | DRG 617 ==
LOC: 4TH 14:18
PROVIDERS: ADMIT Internal Medicine; ATTEND Internal Medicine
PROC: 0Y6J0Z1 Detachment at Left Lower Leg, High, Open Approach (ICD-10-PCS; principal; 2018-04-04 12:28)
DX: E11.621 Type 2 diabetes mellitus with foot ulcer (principal); L97.524 Non-pressure chronic ulcer of other part of left foot with necrosis of bone; E11.52 Type 2 diabetes mellitus with diabetic peripheral angiopathy with gangrene; E11.40 Type 2 diabetes mellitus with diabetic neuropathy, unspecified; I70.262 Atherosclerosis of native arteries of extremities with gangrene, left leg; I13.0 Hypertensive heart and chronic kidney disease with heart failure and stage 1 through stage 4 chronic kidney disease, or unspecified chronic kidney disease; I50.22 Chronic systolic (congestive) heart failure; N18.4 Chronic kidney disease, stage 4 (severe); I70.245 Atherosclerosis of native arteries of left leg with ulceration of other part of foot; I25.5 Ischemic cardiomyopathy; F17.290 Nicotine dependence, other tobacco product, uncomplicated; D63.1 Anemia in chronic kidney disease; I25.10 Atherosclerotic heart disease of native coronary artery without angina pectoris; I25.2 Old myocardial infarction; E78.00 Pure hypercholesterolemia, unspecified; K21.9 Gastro-esophageal reflux disease without esophagitis; E03.9 Hypothyroidism, unspecified; G47.9 Sleep disorder, unspecified; M19.91 Primary osteoarthritis, unspecified site; M54.9 Dorsalgia, unspecified; I48.0 Paroxysmal atrial fibrillation; I65.23 Occlusion and stenosis of bilateral carotid arteries; F32.9 Major depressive disorder, single episode, unspecified; R33.9 Retention of urine, unspecified; N17.9 Acute kidney failure, unspecified; E11.22 Type 2 diabetes mellitus with diabetic chronic kidney disease; E78.5 Hyperlipidemia, unspecified; Z79.4 Long term (current) use of insulin; Z95.1 Presence of aortocoronary bypass graft; Z95.810 Presence of automatic (implantable) cardiac defibrillator
CPT/HCPCS: 36415; 71046; 80053; 80202; 82962; 83605; 83735; 83880; 84484; 85025; 85027; 87040; 87081; 88307; 88311; 93005; 94640; 94760

== ENCOUNTER 2018-04-07 10:13 | Inpatient (IN) | payer MEDICARE, OTHER ==
[~2018-04-07] VITALS: Ht 177.8 cm; Wt 99.8 kg
[~2018-04-07 10:13] MED LIST changes: -AMLO10TA6 PO; +AMLO10TA7 PO; +CEFD300C3 PO; +GUAI118L16 PO; +INSU100I29 SQ; +L.AC1CAP6 PO; +SERT50TA2 PO
[2018-04-07 10:40] VITALS: BP 121/75
--- NOTE | 2018-04-07 10:40 | NUR ---
EMILIO ROSALINDA admitted to room 228-1, with an admitting diagnosis of RENAL FAILURE, POST LEFT BKA AND DEBILITY , on 04/07/[address] [facility] [address] via , accompanied by STAFF. EMILIO TELLEZ introduced to surroundings, call light, bed controls, phone, TV, temperature control, lights, meal times, smoking policy, visitor policy, side rail policy, bathrooms and showers. Patient Rights given to patient in the handbook.EMILIO TELLEZ verbalizes understanding that [facility] is not responsible for the loss or damage to any personal effects or valuables that are kept in the patients posession during their hospitalization. The following Patient Care Plans were discussed with the PT: Discharge Planning andIMPAIRED MOBILITY.EMILIO TELLEZ verbalizes understanding of Interdisciplinary Patient Education. Patient received Patient Rights Booklet, which includes Privacy Act Statement and Data Collection Information Summary. CELESTE CATHETER INTACT. RIGHT CHEST [place]. CONTACT ISOLATION OBSERVED.
--- NOTE | 2018-04-07 11:58 | Physical Therapy Evaluation ---
PT Evaluation-General Medical Diagnosis Admission Date Apr 07, 2018 at 11:33 Medical Diagnosis: infected L diabetic foot; L BKA Onset Date: Apr 07, 2018 Therapy Diagnosis Therapy Diagnosis: weakness; abn gait Height/Weight Height (Feet): 5 Height (Inches): 10.00 Weight (Pounds): 208 Weight (Ounces): 0.0 Precautions Precautions/Isolations: Contact Isolation Weight Bear Status Right Lower Extremity: Right Weight Bearing/Tolerated Left Lower Extremity: Left (BKA) Referral Physician: Isaiah Reason for Referral: Evaluation/Treatment Medical History Pertinent Medical History: Arthritis, CABG, CAD, DM, GERD, HTN, PVD, Smoking Additional Medical History Transmetatarsal amputation right foot; well healed Current History Pt admitted to [facility] for BKA left due to infected ulcer. Pt transferred to [facility] for skilled therapy services and medical intervention. Reviewed History: Yes Social History Home: 35 foot travel trailer Current Living Status: Alone Entry Into Home: Stairs With Railing (3 short steps) PT Steps Into Home: 3 PT Steps Inside Home: 0 Prior/Core FIM Prior Level of Function Therapy Code Descriptions/Definitions Functional Grady Measure: 0=Not Assessed/NA 4=Minimal Assistance 1=Total Assistance 5=Supervision or Setup 2=Maximal Assistance 6=Modified Grady 3=Moderate Assistance 7=Complete Grady Therapy Quality Codes: 6 Independent with activity with or without an assistive device 5 Patient requires set up or clean up by helper. Patient completes activity by themselves 4 Supervision or touching assist (CGA). [place] provide cues , steadying assist 3 The helper provides less than half the effort to complete the activity 2 The helper provides more than half the effort to complete the activity 1 Dependent. The helper does all the effort to complete an activity 7 Patient refused to complete or attempt activity 9 The patient did not perform the activity before the current illness or injury 88 Not attempted due to Medical conditions or safety concerns Functional Abilities and Goals: Independent: Patient completed the activities by him/herself, with or without an assistive device, with no assistance from a helper. Needed Some Help: Patient needed partial assistance from another person to complete activities. Dependent: A helper completed the activities for the patient. Unknown: Not Applicable: Bed Mobility: 7 Transfers (B,C,W/C) (FIM): 7 Gait: 6 (Pt reports he used a cane) Stairs: 6 Indoor Mobility (Ambulation): Independent Stairs: Independent Prior Devices Use: Other-see list below (cane) Pt reports he still drives and cares for himself. Does his own grocery shopping. No assist at home PT Evaluation-Current Subjective Pt agreeable to PT. Reports he plans to return home as before. Reports he will want a 4WW with a seat to move about his home. Reports he will be alone at home but notes his son will be available to help him get home, but not assist him once he is home. Pain Numeric Pain Scale: 6 Location: Left Location Body Site: Calf (LE/stump) Pain Description: Ache (throbbing), Dull Pt/Family Goals His goal is to return to his home. Objective Patient Orientation: Person, Place, Time, Situation Problem Solving: Fair (decreased safety awareness. ) ROM/Strength ROM Lower Extremities WNL Strenght Lower Extremities grossly 4+/5 Integumentary/Posture Integumentary Refer to nursing notes. Bowel Incontinence: No Bladder Incontinence: [place] Cath Posture symmetrical and upright Neuromuscular (Tone, Coordination, Reflexes) intact and functional Sensory Vision: Wears Glasses Hearing: Functional Hand Dominance: Right Sensation Lower Extremities LE sensation is slightly impaired but seems functional Transfers Therapy Code Descriptions/Definitions Functional Grady Measure: 0=Not Assessed/NA 4=Minimal Assistance 1=Total Assistance 5=Supervision or Setup 2=Maximal Assistance 6=Modified Grady 3=Moderate Assistance 7=Complete Grady Therapy Quality Codes: 6 Independent with activity with or without an assistive device 5 Patient requires set up or clean up by helper. Patient completes activity by themselves 4 Supervision or touching assist (CGA). [place] provide cues , steadying assist 3 The helper provides less than half the effort to complete the activity 2 The helper provides more than half the effort to complete the activity 1 Dependent. The helper does all the effort to complete an activity 7 Patient refused to complete or attempt activity 9 The patient did not perform the activity before the current illness or injury 88 Not attempted due to Medical conditions or safety concerns Transfers (B, C, W/C) (FIM): 4 Scootin Roll Left to Right (QC): 4 Supine to/from Sit: 4 Sit to/from Stand: 4 bed t/f WC(FIM only if WC use): 4 Sit to Lying (QC): 4 Lying to Sitting/Side of Bed(Q: 4 Sit to Stand (QC): 4 Chair/[id number] Xfer(QC): 4 Car Transfer (QC): 4 CGA with all functional transfers and requires skilled cues for safety and task segmentation. Pt performed SPT without AD and pushes up from seated surface and reaches across . CGA for safety. Gait Does the Patient Walk?: No and Walking Goal IS indicated Mode of Locomotion: Both Anticipated Mode of Locomotion: Both Gait (FIM): 0 (unable / unsafe to attempt at this time) Walk 10 feet (QC): 88 Walk 50 ft with 2 Turns(QC): 88 Walk 150 ft (QC): 88 Walking 10ft/uneven surface-QC: 88 Gait Assistive Device: FWW Comments/Gait Description Unsafe to attempt hopping/gait at this time. Wheelchair Training Does the Pt Use a Wheelchair?: Yes Wheelchair (FIM): 2 Wheelchair Distance (FIM): 1=560-67 ft Distance: 50 ft Wheelchair Level of Assist: 5 Wheel 50 ft with 2 turns (QC): 5 Wheel 150 ft (QC): 88 Type of Wheelchair: Manual Stairs Stairs (FIM): 0 (unable to walk; unsafe to attempt stairs) 1 Step (curb) (QC): 88 4 Steps (QC): 88 12 Steps (QC): 88 If not tested on admit;explain unable to walk Balance Sitting Static: Normal Sitting Dynamic: Normal Standing Static: Fair Standing Dynamic: Fair Picking up an Object (QC): 88 (unsafe with recent BKA) Treatment Functional transfer training wc to from bed with CGA and skilled cues for safety and sequencing. Safety education and education on ARU expectation. Assessment/Needs Pt presents post left BKA with noted right transmetatarsal amputation. He is limited in functional bed mobiltiy as well as transfers at this time. Functional weakness and impaired functional balance limit safety with transfers at this time. He will benefit from skilled PT intervention to address transfers , progress gait, work on wc mobiltiy, LE strength as well as safety with all mobility. Rehab Potential: Good PT Short Term Goals Short Term Goals Time Frame: Apr 14, 2018 Transfers (B,C,W/C) (FIM): 5 Gait (FIM): 2 Distance (FIM): 7=132-34 ft Gait Distance Comment: 25 Gait Level of Assist: 4 Gait Assistive Device: FWW Wheelchair (FIM): 5 Wheelchair distance (FIM): 3=150 ft PT Carbon Paste Mixer Operator Goals Alf Goals PT Alf Goals Time Frame: Apr 30, 2018 Transfers (B,C,W/C) (FIM): 6 Sit to Lying (QC): 6 Lying-Sitting on Side/Bed(QC): 6 Sit to Stand (QC): 6 Roll Left to Right (QC): 6 Chair/Xtg-xm-Daccv Xfer(QC): 6 Car Transfer (QC): 5 Does the Patient Walk: No and Walking Goal IS indicated Gait (FIM): 2 Gait distance (FIM): 6=949-23 ft Distance: 25 ft Walk 10 feet (QC): 6 Walk 10ft-Uneven Surface(QC): 6 Walk 50ft with 2 Turns (QC): 88 Walk 150 ft (QC): 88 Gait Level of Assist: 6 Gait Assistive Device: FWW Does the Pt use WC or Scooter?: Yes Wheelchair (FIM): 6 Wheelchair distance (FIM): 3=150 ft Wheel 50 feet with 2 turns (QC: 6 Stairs (FIM): 5 (household; modified scooting on his buttock) # of Steps: 4 1 Step (curb) (QC): 6 4 Steps (QC): 6 12 Steps (QC): 88 Picking up an Object (QC): 6 (with a rotogravure press operator) LTG is for pt to enter his home and exit mod indep and be mod indep within his home. PT Plan Problem List Problem List: Activity Tolerance, Functional Strength, Safety, Balance, Gait, Transfer, Bed Mobility Treatment/Plan Treatment Plan: Continue Plan of Care Treatment Plan: Bed Mobility, Education, Functional Activity Vickie, Functional Strength, Group Therapy, Gait, Safety, Therapeutic Exercise, Transfers Treatment Duration: Apr 30, 2018 Frequency: At least 5 of 7 days/Wk (IRF) Estimated Hrs Per Day: 1.5 hours per day Patient and/or Family Agrees t: Yes Safety Risks/Education Patient Education: Transfer Techniques, Safety Issues Teaching Recipient: Patient Teaching Methods: Demonstration, Discussion Response to Teaching: Reinforcement Needed Discharge Recommendations Therapy D/C Recommendations: Physical Therapy Home Care Time/GCodes Time In: 1100 Time Out: 1135 Total Billed Treatment Time: 35 Total Billed Treatment visit EVM 15 FA 20 MOHAN HAGAN PT Apr 07, 2018 11:58
[2018-04-07] MEDS ORDERED: diphenhydrAMINE 25 MG TAB (BENADRYL) PO PRN ×2 (12:00)
[2018-04-07] MEDS ORDERED: MELATONIN 3 MG TABLET PO PRN (12:00)
[2018-04-07] MEDS ORDERED: SALINE NASAL SPRAY (OCEAN) 45 ML BTL PRN (12:00)
[2018-04-07] MEDS ORDERED: CALCIUM CARBONATE 500 MG (TUMS) TAB.CHEW PO PRN (12:00)
[2018-04-07] MEDS ORDERED: DOCUSATE SODIUM 100 MG (COLACE) CAP PO PRN ×2 (12:00)
[2018-04-07] MEDS ORDERED: ALPRAZolam 0.25 MG (XANAX) TAB PO PRN (12:00)
[2018-04-07] MEDS ORDERED: ONDANSETRON 4 MG/2 ML (SDV) Z0FRAN IVP PRN (12:00)
[2018-04-07] MEDS ORDERED: LOPERAMIDE 2 MG (IMODIUM) CAP PO PRN (12:00)
[2018-04-07] MEDS ORDERED: ACETAMINOPHEN 500 MG TAB (TYLENOL) PO PRN (12:00)
--- NOTE | 2018-04-07 13:28 | NUR ---
REVIEWED MED REC IT WAS REPORTED UPON ADMISSION TO 4TH FLOOR. NOTE THE SHORT TERM MEDICATION CEFDINIR WAS STOPPED AT DISCHARGE TO REHAB AND I DID NOT ADD IT BACK TO THE MED REC AT THIS TIME.
--- NOTE | 2018-04-07 13:29 | Occupational Therapy Eval ---
OT Evaluation-General/PLF Medical Diagnosis Admission Date Apr 07, 2018 at 11:33 Medical Diagnosis: infected L diabetic foot; L BKA Onset Date: Apr 01, 2018 Therapy Diagnosis Therapy Diagnosis: weakness Height/Weight Height (Feet): 5 Height (Inches): 10.00 Weight (Pounds): 208 Weight (Ounces): 0.0 Precautions Precautions/Isolations: Contact Isolation Safety Interventions: Bed Exit Alarm Weight Bear Status Weight Bearing Restriction: Full Weight Bearing Location Restriction: RT FOOT Referral Physician: Isaiah Referral Reason: Activity Tolerance, Self Care, Evaluation/Treatment, Strengthening/ROM Medical History Pertinent Medical History: Arthritis, CABG, CAD, DM, GERD, HTN, Hypothroidism, Neuropathy, PVD, Smoking Additional Medical History Pt has Rt metatarsel Amputation , well healed. Current History 57 yrs old male lives at [facility] alone, Single, has 4 daughter & one son . Admitted to acute rehab for Left BKA due to infected ulcer. Pt will be treated in OT to maximise func Winkler in all ADL's with AD & func transfers with safety. Social History Home: [address] Current Living Status: Alone Entry Into Home: Stairs With Railing (3 short steps) Steps Into Home: 3 Steps Inside Home: 0 ADL-Prior Level of Function Therapy Code Descriptions/Definitions Functional Winkler Measure: 0=Not Assessed/NA 4=Minimal Assistance 1=Total Assistance 5=Supervision or Setup 2=Maximal Assistance 6=Modified Winkler 3=Moderate Assistance 7=Complete Winkler Therapy Quality Codes: 6 Independent with activity with or without an assistive device 5 Patient requires set up or clean up by helper. Patient completes activity by themselves 4 Supervision or touching assist (CGA). [place] provide cues , steadying assist 3 The helper provides less than half the effort to complete the activity 2 The helper provides more than half the effort to complete the activity 1 Dependent. The helper does all the effort to complete an activity 7 Patient refused to complete or attempt activity 9 The patient did not perform the activity before the current illness or injury 88 Not attempted due to Medical conditions or safety concerns Functional Abilities and Goals: Independent: Patient completed the activities by him/herself, with or without an assistive device, with no assistance from a helper. Needed Some Help: Patient needed partial assistance from another person to complete activities. Dependent: A helper completed the activities for the patient. Unknown: Not Applicable: ADL PLOF Comments Pt was Independent in all ADL's , transfers & driving , Was living alone at home , Single . Self Care: Independent Functional Cognition: Independent DME/Equipment: Grab Bars Occupation: Unemployed . Drive Self: Yes OT Current Status Subjective Pt was in bed , had breakfast. " Pt stated I am doing good, ready to walk & wants to go home today. " Pain Numeric Pain Scale: 6 Location: Left Location Body Site: Calf Pain Description: Ache, Dull Mental Status/Objective Patient Orientation: Person, Place, Time Current Glasses/Contacts: Yes Hand Dominance: Right Upper Extremity ROM WFL Upper Extremity Coordination Intact Upper Extremity Sensation Intact Upper Extremity Strength MS in BUE 4/5 grossaly graded ADL-Treatment ADL-Current Pt eat with setup ,supine to sit in be with min A , Patient transfers using transfer bench with mod A . High risk of fall without transfer board. Eating (FIM): 6 Eating (QC): 5 Grooming (FIM): 5 Oral Hygiene (QC): 5 Bathing (FIM): 0 Shower/Bathe Self (QC): 0 Upper Body Dressing (FIM): 4 Upper Body Dressing (QC): 4 Lower Body Dressing (FIM): 3 Lower Body Dressing (QC): 3 Toileting (FIM): 5 Toileting Hygiene (QC): 4 Transfers (B, C, W/C) (FIM): 5 Education OT Patient Education: Correct positioning, Safety issues, Transfer techniques, Use of adapted equipment, W/C management Teaching Recipient: Patient Teaching Methods: Demonstration, Discussion Response to Teaching: Verbalize Understanding, Return Demonstration OT Short Term Goals Short Term Goals Time Frame: Apr 21, 2018 Eating(FIM): 7 Grooming(FIM): 7 Bathing(FIM): 5 Bathing Location: L Arm, R Arm, L Upper Leg, R Upper Leg, L Lower Leg ( including foot), R Lower Leg (including foot), Chest, Abdomen, Buttocks, Perineal Area Upper Body Dressing(FIM): 7 Lower Body Dressing(FIM): 4 Toileting(FIM): 4 (with transfer bench) Transfers (B,C,W/C) (FIM): 5 Toilet/Commode Transfer(FIM): 4 Additional Short Term Goals: 1-Demonstrate ADL Tasks, 2-Verbalize Understanding , 3-ImproveStrength/Vickie 1=Demonstrate adherence to instructed precautions during ADL tasks. 2=Patient will verbalize/demonstrate understanding of assistive devices/ modifications for ADL. 3=Patient will improve strength/tolerance for activity to enable patient to perform ADL's. OT Chcf Goals Salvage Winder And Inspector Goals Time Frame: May 05, 2018 Eating (FIM): 7 Eating (QC): 6 Groomin Oral Hygiene (QC): 6 Bathing(FIM): 6 Bathing Location: L Arm, R Arm, L Upper Leg, R Upper Leg, L Lower Leg ( including foot), R Lower Leg (including foot), Chest, Abdomen, Buttocks, Perineal Area Shower/Bathe Self (QC): 6 Upper Body Dressing(FIM): 7 Upper Body Dressing (QC): 6 Lower Body Dressing(FIM): 5 Lower Body Dressing (QC): 5 Toileting Hygiene (QC): 6 Transfers (B,C,W/C) (FIM): 5 Toilet/Commode Transfer(FIM): 6 Toilet/Commode Transfer (QC): 5 Shower Transfer(FIM): 6 Additional Goals: 1-Demonstrate ADL Tasks, 2-Verbalize Understanding, 3- ImproveStrength/Vickie 1=Demonstrate adherence to instructed precautions during ADL tasks. 2=Patient will verbalize/demonstrate understanding of assistive devices/ modifications for ADL. 3=Patient will improve strength/tolerance for activity to enable patient to perform ADL's. OT Education/Plan Problem List/Assessment Assessment: Decreased Activ Tolerance, Decreased Safety Aware, Decreased UE Strength, Dependent Transfers, Impaired Bed Mobility, Impaired Coordination, Impaired Funct Balance, Impaired I ADL's, Impaired Self-Care Skills Discharge Recommendations Plan/Recommendations: Continue POC Therapy D/C Recommendations: Home Independently, Occupational Therapy Home Care Equpiment Recommendations-D/C: Extended Shower Sprayer, Wind Turbine Service Technician, Dressing Stick , Long Shoe Horn, Toilet Riser Barriers to Progress Left BK Amputation & Rt forefoot amputation, unsteady standing balance., high risk of fall. Patient/Family Goals To return home Independently with 4w/Walker with seat Independently in all ADL' s & transfers. Treatment Plan/Plan of Care Patient would benefit from OT for education, treatment and training to promote independence in ADL's, mobility, safety and/or upper extremity function for ADL' s. Plan of Care: ADL Retraining, Cognitive Retraining, Functional Mobility, Group Exercise/Act as Ind, UE Funct Exercise/Act Treatment Duration: May 05, 2018 Frequency: At least 5 of 7 days/Wk (IRF) Estimated Hrs Per Day: 1.5 hours per day Agreement: Yes Rehab Potential: Good Time/GCodes Start Time: 11:35 Stop Time: 12:10 Total Time Billed (hr/min): 35 Billed Treatment Time 1 Eval 20 min ,TheraAct 15min GITA GASPAR OT Apr 07, 2018 13:29
[2018-04-07] MEDS ORDERED: FLU QUADRIvalent (5+ YOA) 2018-2019 (AFLURIA) 0.5 ML IM ONE (13:30)
[2018-04-07] MEDS: HYDROmorphone 2 MG/ML VIAL (DILAUDID) IV PRN ×3 (14:39→21:21)
[2018-04-07] MEDS: CATHETER FLUSH 10 ML SYR IV PRN ×2 (14:43→18:29)
--- NOTE | 2018-04-07 14:45 | NUR ---
PAIN LEFT STUMP AND MEDICATED WITH DILAUDID.
--- NOTE | 2018-04-07 15:17 | Therapy Group Daily Note ---
Therapy Daily Group Note Patient Education Topic Exercises, Other List Below Exercises LE Seated Exercise, UE Exercise Other/Notes Pt participated in group therapy with 4:1 ratio. Goals of therapy are understanding ARU description/expectations and understanding the benefits of sleep. Pt transported to group via W/C Group consisted of introductions (name, place living, why are you here), socialization, UE/LE seated exercises, education for ARU description/expectations and understanding the benefits of sleep. Pt was able to introduce self appropriately and accurately state reason for being at ARU. Pt actively listened to peers throughout session. Pt was able to acknowledge understanding of goals by giving verbal example and raise hand for acknowledgement. Pt tolerated UE/LE seated exercises and completed without difficulty except was limitted with LLE due to BKA. Pt will benefit from topics discussed by increasing time slept and being able to fully engage in therapies. Pt transported back to room via W/C. Pt assisted back to bed with min A, uncontrolled descent, c/o pain spasm in penis. Call light/phone in reach. Safety measures in place. Start Time: 13:00 Stop Time: 14:30 Total Billed Treatment Time: 90 Total Billed Treatment 1-GRP TITA WILEY PTA Apr 07, 2018 15:17
--- NOTE | 2018-04-07 15:24 | ST Cognitive Linguistic Eval ---
Speech Evaluation-General Medical Diagnosis infected L diabetic foot; L BKA Onset Date: Apr 01, 2018 Therapy Diagnosis Therapy Diagnosis: Cognitive-communication Precautions Precautions/Isolations: Contact Isolation Medical History Pertinent Medical History: Arthritis, CABG, CAD, DM, GERD, HTN, Hypothroidism, Neuropathy, PVD, Smoking Reviewed History: Yes Social History Current Living Status: Alone Speech PLF-Current Status Prior Level of Function Patient lived at home alone where he was independent for his daily needs. Subjective Patient was experiencing pain while trying to rest in his bed. Nursing was notified and gave him a shot to control the pain. Language Eval: Auditory Comprehends Simple Yes/No Ques: Functional Indent/Objects Multiple Callahan: Functional Ident/Pics in Multiple Callahan: Functional Follows 1-Step Commands: Functional Follows Complex Directions: Functional Follows General Conversations: Functional Language Eval: Verbal Language Completes Spontaneous Greeting: Functional Produces Auto, Serial Info: Functional Imitates Simple Words/Phrases: Functional Word Finding: Functional Requests Basic Needs: Functional States Basic Personal Info: Functional Expresses Complex Ideas: Functional Cognitive Patient Orientation Patient is oriented to all concepts. Objective Cognitive Domain Attention: WNL Memory: WNL Problem Solving: Functional Executive Functions: [facility] Objective Formal/Standardized Tests [facility] Cognitive/Communication Results Memory: Immediate; 3/3, Delayed 3/3, Orientation: 5/5, Problem Solving: Simple' 5/5, Complex; 5/5, Auditory Processin/5 Oral Motor/Speech Production Within Functional Limits Impression Patient is a 57 year old male who was admitted to ARU from the acute side with post amputation below the knee. Patient was evaluated for cognitive- communication status with intact orientation and memory. Patient completed all areas of testing within functional limits. Communication/Social Cognition Comprehension: 7 Expression: 7 Social Interaction: 7 Problem Solvin Memory: 7 Speech Patient Assess Expression of Ideas/Wants: Expression (4) Understanding Verbal Content: Understands (4) Brief Interview-Mental Status: Yes Repetition of Three Words: Three (3) Temporal Orientation: Year: Correct (3) Temporal Orientation: Month: Accurate within 5 days(2) Temporal Orientation: Day: Correct (1) Recall : Wear to say "Sock": Yes, no cue required (2) Recall : Color: Yes, no cue required (2) Recall : Bed: Yes, no cue required (2) Memory/Recall Ability: Current season, That he or she is in a hsp/hsp unit Speech Short Term Goals Short Term Goals Short Term Goals 1) Patient will be able to effectively communicate his wants/needs at 90% or greater. 2) Patient will be able to follow directions during therapy with 90% or greater. Speech Boot Maker Goals Boot Maker Goals Patient will be able to communicate effectively while he is a patient on the ARU. Speech-Plan Patient/Family Goals Patient/Family Goals: Patient plans to return home independently post rehab. Treatment Plan Speech Therapy Treatment Plan: Discontinue ST, Goals Met Patient is not recommended for skilled ST at this time. Treatment Duration: Apr 07, 2018 Frequency: 1 time per week Estimated Hrs Per Day: .25 hour per day Rehab Potential: Good Barriers to Learning: Patient is experiencing a lot of pain due to the recent partial leg amputation. Pt/Family Agrees to Plan: Yes Safety Risks/Education Teaching Recipient: Patient Teaching Methods: Discussion Response to Teaching: Verbalize Understanding Education Topics Provided: Safety within his room. Time Speech Therapy Time In: 14:30 Speech Therapy Time Out: 14:50 Total Billed Time: 20 Billed Treatment Time 1, SPSNDCOMP DARRELL Macias Apr 07, 2018 15:24
[2018-04-07 16:14] VITALS: BP 126/82
--- NOTE | 2018-04-07 17:00 | NUR ---
DR. MEEHAN HERE TO SEE PATIENT. CELESTE CATHETER TO BE DC'D IN AM.
--- NOTE | 2018-04-07 18:00 | NUR ---
DR. FUCHS HERE TO SEE PATIENT AND LEFT BKA DRESSING CHANGED.
[2018-04-07] MEDS: inSUlin ASPART (NovoLOG) 1 UNIT/0.01 ML (CHARGE PER UNIT) SC SCH ×2 (18:26→20:29)
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
--- NOTE | 2018-04-07 19:00 | NUR ---
[place] NOTIFIED PER DR. FUCHS'S ORDER TO CONTACT PROSTHETIC REP TO GET A LIVESTOCK NUTRITION TERRITORY MANAGER PROCESS BEGUN.
[2018-04-07] MEDS: RT-ALBUTEROL/IPRATROPIUM 3 ML (DUONEB) VIAL INH SCH (20:23)
--- NOTE | 2018-04-07 21:00 | CONSULTATION REPORT ---
DATE OF SERVICE: 04/07/2018 ATTENDING PHYSICIAN: Dr. Colon. SUMMARY: A 57-year-old white man, diabetic with peripheral vascular disease, who is rehabilitated and recovering from a below knee amputation. Catheter was inserted during surgery and has not come out. The patient denies any voiding symptoms prior to his surgery. A Samayoa catheter is draining clear urine. IMPRESSION: Possible urinary retention. PLAN: We will discontinue Samayoa catheter tomorrow at 7:00 a.m. and manage accordingly. Job ID: [id number] DocumentID: [id number] Dictated Date: 04/07/2018 17:40:27 Finished Goods Planner Date: 04/07/2018 20:59:52 Dictated By: ANGELY MEEHAN MD
[2018-04-07] MEDS: POLYETHYLENE GLYCOL 17 GM (MIRALAX) PACK PO SCH (21:11)
[2018-04-07] MEDS: ATORVASTATIN 80 MG (LIPITOR) TABLET PO SCH (21:13)
[2018-04-07] MEDS: CARVEDILOL 6.25 MG (COREG) TAB PO SCH (21:13)
--- OUTSIDE RECORDS SUMMARY | 2018-04-07 21:37 | XMS REPORT | Clinical Summary ---
Author Author [facility] Organization [facility] Address Unknown Phone Unavailable Care Team Providers Care Edger Machine Operator Name Role Phone Madelaine Salinas Unavailable Unavailable Tanvir Lorenzo MD Unavailable Jemal Chaudhary PCP Source Comments Some departments are not documenting in the electronic medical record. If you do not see the information that you expected, contact Release of Information in the Health Information Management department at [phone] for further assistance in locating additional records.[facility] Allergies Comments Active Allergy Reactions Severity Noted [...] Coronary atherosclerosis of unspecified type of vessel, andreafski or graft, Postsurgical aortocoronary bypass status, Obstructive [...] artery disease) Overview: 01/06/09- CABG x 4 ([facility]): Left internal thoracic artery-LAD. SVG-DIAG, SVG-OM1 and [...] on file. For more information, please contact: [facility] [address] [place] [address] Date Inactivated Comments Code Status Date Activated 08/17/2012 5:10 AM Full Code 08/15/2012 3:24 PM Provider has discussed Code Status Yes w/Patient or Family? 06/05/2012 12:09 AM Full Code 06/02/2012 10:47 AM Provider has discussed Code Status No, more discussion w/Patient or Family? needed
[2018-04-07] MEDS: ALPRAZolam 0.25 MG (XANAX) TAB PO PRN (23:23)
[2018-04-08] MEDS: HYDROmorphone 2 MG/ML VIAL (DILAUDID) IV PRN ×6 (03:03→22:04)
[2018-04-08] MEDS: LEVOTHYROXINE 100 MCG (LEVOTHROID) TAB PO SCH (06:11)
[2018-04-08] MEDS: inSUlin ASPART (NovoLOG) 1 UNIT/0.01 ML (CHARGE PER UNIT) SC SCH ×4 (06:11→21:25)
[2018-04-08 06:20] VITALS: BP 134/76
[2018-04-08] MEDS: RT-ALBUTEROL/IPRATROPIUM 3 ML (DUONEB) VIAL INH SCH ×2 (06:31→19:26)
--- NOTE | 2018-04-08 08:24 | Cardiology Progress Note ---
Subjective Date Seen by Provider: Apr 08, 2018 Time Seen by Provider: 08:21 Subjective/Events-last exam patient is laying down in bed. Had phantom pain. Denied any chest pain Review of Systems General: No Chills, No Night Sweats, No Fatigue, No Malaise, No Appetite, No Other HEENT: No Head Aches, No Visual Changes, No Eye Pain, No Ear Pain, No Dysphasia , No Sinus Congestion, No Post Nasal Drip, No Sore Throat, No Other Pulmonary: No Dyspnea, No Cough, No Pleuritic Chest Pain, No Other Cardiovascular: No: Chest Pain, Palpitations, Orthopnea, Paroxysmal Noc. Dyspnea, Edema, Lt Headedness, Other Objective-Cardiology Exam Last Set of Vital Signs Vital Signs 04/08/18 04/08/18 06:20 06:31 Temp 99.2 Pulse 61 Resp 18 B/P (MAP) 134/76 (95) Pulse Ox 95 O2 Delivery Room Air Capillary Refill : I&O Intake and Output 04/08/18 00:00 Intake Total 400 ml Output Total 600 ml Balance -200 ml Intake Oral 400 ml Output Urine Total 600 ml Daily Weight Change Yes, 2-13 lbs General: Alert, Oriented X3, Cooperative HEENT: Atraumatic, PERRLA Neck: Supple, No JVD, No Thyromegaly Lungs: Normal Air Movement, Other (rhonchi) Heart: Regular Rate, Normal S1, Normal S2, Other (systolic murmur at the left sternal border) Abdomen: Normal Bowel Sounds, Soft, No Tenderness, No Hepatosplenomegaly, No Masses Extremities: No Clubbing, No Cyanosis, No Edema, No Tenderness/Swelling, Other (BKA) Skin: No Rashes, No Breakdown, No Significant Lesion Neuro: Normal Speech, Normal Tone, Sensation Intact Psych/Mental Status: Mental Status NL, Mood NL Results Lab A/P-Cardiology Admission Diagnosis Peripheral arterial disease Coronary artery disease Hypertension Hyperlipidemia Assessment/Plan Nonhealing foot ulcer, recurrent, extensive peripheral arterial disease, underwent multiple interventions in the past, failing percutaneous intervention with persistent nonhealing wound, s/p left BKA on 04/04/18, history of right toes amputations Acute on chronic renal failure, has been followed by a stick feeder, renal function are improving slowly, continue to monitor Coronary artery disease, history of CABG 4 in 2008 with cardiac catheterization June 02, [address] Arvizu revealing severe three-vessel diomede coronary artery disease with non-bypassed RCA, patent OSBORNE to LAD, patent vein graft to first diag, patent vein graft to first OM. There was occluded jump graft to the second obtuse marginal branch with successful PCI using bare-metal vision stent 3.0 x 28 mm to the second OM. At that time was reported patient staged intervention to the right and third OM branch after gallbladder removal by Dr. Avrizu, had stress test done at [facility] within then and no further intervention was made. Patient was to be scheduled for [facility] with intervention after healing of Left foot ulcer, however, patient did not follow up, Cardiac catheterization was carried out by Dr. Busch in January 2015 and reported as patent OSBORNE to the LAD vein graft to the diagonal artery and vein graft to the obtuse marginal artery, small vessel disease distally, the right coronary artery has severe diffuse disease, Dr. Busch felt that it is high risk for intervention at this time, medical therapy is recommended. Patient will require significant amount of stenting with limited benefit. Continue to monitor at this time Significant peripheral arterial disease, multiple intervention by Dr. Beebe in the past. Extensive workup in the past, angiogram was done on May 30, 2016 which showed on the right side subtotal occlusion of the anterior tibial artery , severe disease at the posterior tibial and peroneal artery and distal popliteal artery successful balloon angioplasty to the anterior tibial artery using 2.0 then 3.0 balloon with excellent results, balloon angioplasty to the popliteal artery using Lutonix 4.018 mm with excellent results. On July 02, 2016 patient was noted to have total occlusion of the anterior tibial artery of the left leg with balloon angioplasty using 3x100 balloon with excellent results. Return on July 04, 2016 and underwent intervention on the right lower extremity using Lutonix to the distal SFA 6 time 150 mm with excellent results. Patient has small vessel disease distally. On May 01, 2017 after having a nonhealing wound to the left heel. Was found to have total occlusion of the left anterior tibial artery, complex intervention using multiple wires and balloons with excellent results. Repeat angiogram was done on January 01, 2018 showing total occlusion of the anterior tibial artery with unsuccessful attempt to cross the lesion, I was able to do balloon angioplasty for severe disease of the peroneal artery. Patient still have severe stenosis at the distal SFA. Patient was referred to [facility], underwent angiogram on January 10, 2018 had left SFA angioplasty with drug-coated balloon, atherectomy of the anterior tibial artery with jet stream followed by angioplasty of the anterior tibial artery and peroneal artery with drug-coated balloons, angioplasty to the dorsalis pedis. Unsuccessful posterior tibial artery cannulation. His peripheral arterial disease In the small vessel at the right lower extremity is deemed inoperable at this time. s/p Left BKA Congestive heart failure, ischemic cardiomyopathy, LV systolic dysfunction. Persistent cardiomyopathy with ejection fraction 20-25 percent, last echocardiogram was done in July 2017. History of single-chamber ICD implant for primary prevention. Maintained on beta kathrin. Unable to tolerate NORMAN-I or ARB secondary to renal function. Continue to monitor Paroxysmal atrial fibrillation-patient noted to have episodes of atrial fibrillation on his first ICD interrogation, longest episode up to one hour. continue on current medication including amiodarone and monitor Tobaccoism, reports recently quit smoking. Educated on importance of smoking cessation. History of port placement on the right side, status post retrieval after fractured port in June 2016 Hypertension, controlled, continue to monitor. Hyperlipidemia, was started on Lipitor 80 mg daily. Continue to monitor Diabetes mellitus, followed and monitored by primary care physician. Mild bilateral nonobstructive carotid artery stenosis, last carotid ultrasound was done in December 2017, continue to monitor Clinical Quality Measures DVT/VTE Risk/Contraindication: Risk Factor Score Per Nursin RFS Level Per Nursing on Admit: 4+=Very High JORDEN GREER MD Apr 08, 2018 08:24
--- NOTE | 2018-04-08 08:35 | History & Physical ---
History of Present Illness History of Present Illness Reason for visit/HPI CC: Debility following left BKA POD # 4 HPI: This is a 57-year-old white male clinic patient of mine who is status post left [id number] amputation last Saturday. Patient lives independently in a trailer and will need aggressive rehabilitation prior to discharge to have a chance in remaining independently living. Patient having phantom pain times so we'll try to manage that as best as possible. Urinary retention seems to be resolved. Blood sugars are reviewed. Patient has a history of smoking and that has ceased since admitted to the hospital. Overall patient feels much better did have a panic attack last night which she does have a component of posttraumatic stress disorder from service. We'll check labs today after drawn from port due to creatinine level. No bowel movement yet but will be intending to work on that today. Date of Admission Apr 07, 2018 at 11:33 Date Seen by a Provider: Apr 08, 2018 Time Seen by a Provider: 08:00 I consulted on this patient on 04/08/18 08:34 Attending Physician Ivet Colon DO Admitting Physician Ivet Colon DO Consult Allergies and Home Medications Allergies Coded Allergies: oxycodone HCl (Verified Allergy, Unknown, HAS RECEIVED HYDROMORPHONE W/O ISSUE, 01/01/18) protamine (Verified Allergy, Unknown, 01/01/18) Home Medications Amiodarone HCl 200 Mg Tablet, 200 MG PO DAILY, (Reported) Aspirin 81 Mg Tablet.dr, 81 MG PO DAILY, (Reported) Atorvastatin Calcium 80 Mg Tablet, 80 MG PO DAILY, (Reported) Carvedilol 3.125 Mg Tablet, 3.125 MG PO DAILY, (Reported) Clopidogrel Bisulfate 75 Mg Tablet, 75 MG PO DAILY, (Reported) Furosemide 40 Mg Tablet, 40 MG PO DAILY, (Reported) LAST FILLED #60 18 Guaifenesin/Codeine Phosphate 118 Ml Liquid, 5 ML PO Q4H PRN for COUGH, ( Reported) Hydrocodone/Acetaminophen 1 Each Tablet, 1 TAB PO Q4H PRN for PAIN-MODERATE, ( Reported) Insulin Aspart 300 Units/3 Ml Solution, 12-16 UNITS SQ TIDAC, (Reported) Insulin Detemir 100 Unit/1 Ml Insuln.pen, 14 UNIT SQ DAILY, (Reported) Isosorbide Mononitrate 30 Mg Tab.er.24h, 30 MG PO DAILY, (Reported) L.acidoph & Paracasei,B.lactis 1 Each Capsule, 1 CAP PO BID, (Reported) Levothyroxine Sodium 200 Mcg Tablet, 200 MCG PO DAILY, (Reported) Nitroglycerin 0.4 Mg Tab.subl, 0.4 MG SL UD PRN for CHEST PAIN, (Reported) Sertraline HCl 50 Mg Tablet, 50 MG PO DAILY PRN for MOOD, (Reported) LAST FILLED #30 01-09-18 Patient Home Medication List Home Medication List Reviewed: Yes Past Jgknpdl-Qkolsf-Lehhvz Hx Past Med/Social Hx: Reviewed Nursing Past Med/Soc Hx, Reviewed and Corrections made Patient Social History Marrital Status: single Employed/Student: unemployed Alcohol Use: Past History Alcohol Beverage of Choice: Beer Recreational Drug Use: No Smoking Status: Current Everyday Smoker Former Smoker, Quit: May 29, 2017 Type Used: Cigars Physical Abuse Screen: No Sexual Abuse: No Recent Foreign Travel: No Contact w/other who traveled: No Recent Hopitalizations: No (LEFT BKA) Recent Infectious Disease Expo: No Immunizations Up To Date Tetanus Booster (TDap): Unknown Seasonal Allergies Seasonal Allergies: No Past Medical History Surgeries: CABG, Gallbladder, Orthopedic (BKA left), Vascular Surgery Respiratory: COPD Currently Using CPAP: No Currently Using BIPAP: No Cardiac: Chronic Edema/Swelling, Coronary Artery Disease, Heart Attack, High Cholesterol, Hypertension, Peripheral Vascular Neurological: Neuropathy Reproductive: No Sexually Transmitted Disease: No HIV/AIDS: No Genitourinary: Renal Failure Gastrointestinal: Gastroesophageal Reflux Musculoskeletal: Amputee, Arthritis, Chronic Back Pain Endocrine: Diabetes, Insulin dep, Hypothyroidsim HEENT: Cataract Loss of Vision: Left Hearing Impairment: Denies Psychosocial: Sleep Difficulties Skin/Integumentary: Recent Skin Changes History of Blood Disorders: No Adverse Reaction to Blood Turner: No Family History Alzheimer's disease 19 FATHER BLOOD Cardiovascular disease 19 MOTHER Diabetes mellitus 19 FATHER G8 SISTER FH: blood disorder G8 SISTER (SPECULATION) Hypertension 19 MOTHER Myocardial infarction 19 MOTHER No Pertinent Family Hx Review of Systems Constitutional: see HPI, weakness EENTM: no symptoms reported Respiratory: no symptoms reported Cardiovascular: no symptoms reported Gastrointestinal: constipation Genitourinary: no symptoms reported Musculoskeletal: joint pain Skin: no symptoms reported Psychiatric/Neurological: Depressed Physical Exam Vital Signs Vital Signs - First Documented 04/07/18 10:40 Temp 97.2 Pulse 63 Resp 20 B/P (MAP) 121/75 (90) Pulse Ox 98 O2 Delivery Room Air Capillary Refill : Height, Weight, BMI Height: 5'10.00" Weight: 212lbs. 0.0oz. 96.356791ed; 30.6 BMI Method:Stated General Appearance: No Apparent Distress, WD/WN, Chronically ill Eyes: Bilateral Eye Normal Inspection, Bilateral Eye PERRL, Bilateral Eye EOMI HEENT: PERRL/EOMI, Normal ENT Inspection, Pharynx Normal Neck: Full Range of Motion, Normal Inspection, Non Tender, Supple, Carotid Bruit Respiratory: Chest Non Tender, Lungs Clear, Normal Breath Sounds, No Accessory Muscle Use, No Respiratory Distress Cardiovascular: Regular Rate, Rhythm, No Edema, No Gallop, No JVD, No Murmur, Normal Peripheral Pulses Gastrointestinal: Normal Bowel Sounds, No Organomegaly, No Pulsatile Mass, Non Tender, Soft Back: Normal Inspection, No CVA Tenderness, No Vertebral Tenderness Extremity: Normal Capillary Refill, Normal Inspection, Normal Range of Motion, Non Tender, No Calf Tenderness, No Pedal Edema, Other (left BKA dressing intact) Neurologic/Psychiatric: Alert, Oriented x3, No Motor/Sensory Deficits, Normal Mood/Affect Skin: Normal Color, Warm/Dry Lymphatic: No Adenopathy Assessment/Plan Assessment and Plan Assessment: Infected left foot diabetic ulcer s/p left below the knee amputation by Dr. Chicas POD # 4 Congestive heart failure with elevated BNP Chronic renal failure and not a dialysis candidate due to his refusal if that becomes a necessity Severe peripheral vascular disease failed intervention for revascularization of the lower extremities and failed wound care for 4 years CAD previous bypass surgery Hypertension Hyperlipidemia Smoker Plan: Monitor creatinine DVT prophylaxis Left below the knee amputation rehab training Problems: (1) Amput below knee, unilat Status: Acute (2) CKD (chronic kidney disease) stage 3, GFR 30-59 ml/min Status: Chronic (3) Anemia in chronic kidney disease Status: Chronic (4) Ischemic cardiomyopathy Status: Chronic (5) Essential (primary) hypertension Status: Chronic (6) PVD (peripheral vascular disease) Status: Chronic (7) Dyspnea Status: Acute (8) Urinary retention Status: Acute (9) Insulin dependent diabetes mellitus Status: Chronic Admission Diagnosis Admission Status: Inpatient Order (span 2 midnights) Reason for Inpatient Admission: Inpt rehab Clinical Quality Measures DVT/VTE Risk/Contraindication: Risk Factor Score Per Nursin RFS Level Per Nursing on Admit: 4+=Very High IVET COLON DO Apr 08, 2018 08:35
--- NOTE | 2018-04-08 08:37 | PM&R Post Admission Assessment ---
Post Admission Physician Asses Date seen by provider: Apr 08, 2018 Time seen by provider: 08:00 Admisison Dx: (1) Amput below knee, unilat Status: Acute (2) CKD (chronic kidney disease) stage 3, GFR 30-59 ml/min Status: Chronic (3) Urinary retention Status: Acute (4) Anemia in chronic kidney disease Status: Chronic (5) Ischemic cardiomyopathy Status: Chronic (6) Essential (primary) hypertension Status: Chronic (7) PVD (peripheral vascular disease) Status: Chronic (8) Dyspnea Status: Acute (9) Insulin dependent diabetes mellitus Status: Chronic The preadmission screen agrees with the post admission assessment that the patient is a good candidate for inpatient rehabilitation. The patient will have a comprehensive program of inpatient rehabilitation with a goal of maximizing level of functional independence prior to discharge home with [family]. The patient will have PT/OT ninety minutes per day, each discipline, five days a week for gait, strengthening, conditioning, balance, ADLs, any patient/family/caregiver training as necessary. Speech therapy to do cognitive assessment and treat as indicated. Rehabilitation nursing to assist with bowel, bladder, skin, wound care, medication administration, pain management. Cyber Security Manager to assist with discharge planning, community reentry. SCD's for DVT prophylaxis. He appears to be well motivated to participate in three hours of therapy a day. He should be able to tolerate three hours of therapy a day from a medical standpoint. He should benefit from the three hours of therapy a day. He has a reasonable discharge plan, reasonable discharge rehabilitation goals and a supportive family. He has various comorbidities that need to be closely monitored with medications and treatments adjusted on a daily basis as needed. These include: see above list Barriers to discharge for this patient who had been independent prior to this are for him to be modified independent to supervision for ADLs and mobility skills prior to discharge home with [family], so as to lessen the burden of the caregivers. Risks for this patient include: 1. Fall 2. Fracture 3. DVT 4. Pulmonary embolism 5. Wound infection 6. Skin breakdown 7. Contractures 8. Poorly controlled pain 9. Urinary retention 10. UTI 11. Respiratory infection 12. Aspiration Estimated Length of Stay: 7 days Prognosis: Rehab prognosis appears good for goal of discharge home independently for ADLs and mobility skills. Date Identified: Apr 08, 2018 Time Identified: 08:00 Action Plan to Resolve CSMI: Phanthom pain will be managed with meds General: Alert, Oriented X3, Cooperative HEENT: Atraumatic, PERRLA Neck: Supple, No JVD, No Thyromegaly Lungs: Normal Air Movement, Other (rhonchi) Heart: Regular Rate, Normal S1, Normal S2, Other (systolic murmur at the left sternal border) Abdomen: Normal Bowel Sounds, Soft, No Tenderness, No Hepatosplenomegaly, No Masses Extremities: No Clubbing, No Cyanosis, No Edema, No Tenderness/Swelling, Other (BKA) Skin: No Rashes, No Breakdown, No Significant Lesion Neuro: Normal Speech, Normal Tone, Sensation Intact Psych/Mental Status: Mental Status NL, Mood NL ABIODUN SOLANO DO Apr 08, 2018 08:37
--- NOTE | 2018-04-08 08:44 | Progress Note-Urology ---
Progress Note-Urology Progress Notes/Assess & Plan Progress/Assessment & Plan CELESTE OUT. TOV Final Diagnosis URINE RETENTION ANGELY MEEHAN MD Apr 08, 2018 08:44
[2018-04-08] MEDS: ISOSORBIDE MONONITRATE 30 MG (IMDUR) TAB PO SCH (08:55)
[2018-04-08] MEDS: AMIODARONE 200 MG (CORDARONE) TAB PO SCH (08:55)
[2018-04-08] MEDS: CARVEDILOL 6.25 MG (COREG) TAB PO SCH ×2 (08:55→21:44)
[2018-04-08 09:05] LABS: BASOPHILS % (AUTO) 0 % (0-10); EOSINOPHILS # (AUTO) 0.1 10^3/uL (0.0-0.3); EOSINOPHILS % (AUTO) 1 % (0-10); HEMATOCRIT 34 % (40-54); HEMOGLOBIN 11.1 G/DL (13.3-17.7); LYMPHOCYTES # (AUTO) 0.9 X 10^3 (1.0-4.0); LYMPHOCYTES % (AUTO) 12 % (12-44); MEAN CORPUSCULAR HEMOGLOBIN 29 PG (25-34); MEAN CORPUSCULAR HGB CONC 32 G/DL (32-36); MEAN CORPUSCULAR VOLUME 90 FL (80-99); MEAN PLATELET VOLUME 11.3 FL (7.4-10.4); MONOCYTES # (AUTO) 0.8 X 10^3 (0.0-1.0); MONOCYTES % (AUTO) 10 % (0-12); NEUTROPHILS # (AUTO) 6.2 X 10^3 (1.8-7.8); NEUTROPHILS % (AUTO) 77 % (42-75); PLATELET COUNT 138 10^3/uL (130-400); RED CELL DISTRIBUTION WIDTH 16.9 % (10.0-14.5)
[2018-04-08 09:24] LABS: ALBUMIN 2.5 GM/DL (3.2-4.5); CALCIUM 8.5 MG/DL (8.5-10.1); CREATININE SERUM 2.72 MG/DL (0.60-1.30); POTASSIUM 4.5 MMOL/L (3.6-5.0); TOTAL PROTEIN 5.7 GM/DL (6.4-8.2)
--- NOTE | 2018-04-08 10:40 | NUR ---
[facility] Strategist.
[2018-04-08] MEDS: ENOXAPARIN 40 MG/0.4 ML (LOVENOX) SYR SC SCH (10:59)
--- NOTE | 2018-04-08 12:00 | Physical Therapy Daily Note ---
PT Daily Note-Current Subjective Patient in bed pre tx, agrees to PT, has no complaints of pain at rest. Appearance Patient in bed post tx with nurse call, phone, tray, all needs met. Mental Status Patient Orientation: Person, Situation Patient was unsure about what state he was in. Transfers Therapy Code Descriptions/Definitions Functional [place] Measure: 0=Not Assessed/NA 4=Minimal Assistance 1=Total Assistance 5=Supervision or Setup 2=Maximal Assistance 6=Modified [place] 3=Moderate Assistance 7=Complete [place] Therapy Quality Codes: 6 Independent with activity with or without an assistive device 5 Patient requires set up or clean up by helper. Patient completes activity by themselves 4 Supervision or touching assist (CGA). Elton provide cues , steadying assist 3 The helper provides less than half the effort to complete the activity 2 The helper provides more than half the effort to complete the activity 1 Dependent. The helper does all the effort to complete an activity 7 Patient refused to complete or attempt activity 9 The patient did not perform the activity before the current illness or injury 88 Not attempted due to Medical conditions or safety concerns Transfers (B, C, W/C) (FIM): 3 Scootin Rollin Supine to/from Sit: 5 Sit to/from Stand: 3 Bed to/from Chair: 4 Weight Bearing Right Lower Extremity: Right Weight Bearing/Tolerated Left Lower Extremity: Left (BKA) Wheelchair Training Does the Pt Use a Wheelchair?: Yes Wheelchair (FIM): 5 Distance: 150'x2 Wheelchair Level of Assist: 5 Type of Wheelchair: Manual Exercises Supine Ex: Quad Set, Glut sets, Short Arc Quads, Straight leg raise, Hip abd/ add Supine Reps: 20 LAQ alternating for 5 min, prone hip stretch for 5 min, patient stood in the parallel bars with mod assist and stood for about 5 min Treatments bed mobility and transfers, stretching, LE ROM, standing, wheelchair mobility Assessment Current Status: Fair Progress Patient is extremely drowsy and needs constant cues to stay on task because he will fall asleep, even sitting up. Patient is not completely oriented, he did not know what state he was in, he thought he was in [place] PT Short Term Goals Short Term Goals Time Frame: Apr 14, 2018 Transfers (B,C,W/C) (FIM): 5 Gait (FIM): 2 Distance (FIM): 2=824-47 ft Gait Distance Comment: 25 Gait Level of Assist: 4 Gait Assistive Device: FWW Wheelchair (FIM): 5 Wheelchair distance (FIM): 3=150 ft Wheelchair Distance: 50 ft PT Custodial Goals Automatic Fabric Cutter Goals PT Custodial Goals Time Frame: Apr 30, 2018 Transfers (B,C,W/C) (FIM): 6 Sit to Lying (QC): 6 Lying-Sitting on Side/Bed(QC): 6 Sit to Stand (QC): 6 Roll Left to Right (QC): 6 Chair/Oek-ae-Boltz Xfer(QC): 6 Car Transfer (QC): 5 Does the Patient Walk: No and Walking Goal IS indicated Gait (FIM): 2 Gait distance (FIM): 3=499-40 ft Distance: 25 ft Walk 10 feet (QC): 6 Walk 10ft-Uneven Surface(QC): 6 Walk 50ft with 2 Turns (QC): 88 Walk 150 ft (QC): 88 Gait Level of Assist: 6 Gait Assistive Device: FWW Does the Pt use WC or Scooter?: Yes Wheelchair (FIM): 6 Wheelchair distance (FIM): 3=150 ft Wheel 50 feet with 2 turns (QC: 6 Stairs (FIM): 5 (household; modified scooting on his buttock) # of Steps: 4 1 Step (curb) (QC): 6 4 Steps (QC): 6 12 Steps (QC): 88 Picking up an Object (QC): 6 (with a tetryl dissolver operator) PT Plan Problem List Problem List: Activity Tolerance, Functional Strength, Safety, Balance, Gait, Transfer, Bed Mobility, ROM Treatment/Plan Treatment Plan: Continue Plan of Care Treatment Plan: Bed Mobility, Education, Functional Activity Vickie, Functional Strength, Group Therapy, Gait, Safety, Therapeutic Exercise, Transfers Treatment Duration: Apr 30, 2018 Frequency: At least 5 of 7 days/Wk (IRF) Estimated Hrs Per Day: 1.5 hours per day Patient and/or Family Agrees t: Yes Safety Risks/Education Patient Education: Transfer Techniques, Correct Positioning, W/C Management, Disease Process, Safety Issues Teaching Recipient: Patient Teaching Methods: Demonstration, Discussion Response to Teaching: Reinforcement Needed Time/GCodes Time In: 1100 Time Out: 1200 Total Billed Treatment Time: 60 Total Billed Treatment 1 visit [facility] 20' EX 30' FA 10' ALEJANDRA DEVINE PT Apr 08, 2018 11:59
--- NOTE | 2018-04-08 14:55 | Physical Therapy Daily Note ---
PT Daily Note-Current Subjective Patient in wheelchair at bedside pre tx, agrees to PT, voices no complaints of pain. Appearance Patient sitting on edge of bed post tx vomiting into a basin, nursing in the room. Mental Status Patient Orientation: Person, Confused, Situation Transfers Therapy Code Descriptions/Definitions Functional [place] Measure: 0=Not Assessed/NA 4=Minimal Assistance 1=Total Assistance 5=Supervision or Setup 2=Maximal Assistance 6=Modified [place] 3=Moderate Assistance 7=Complete [place] Therapy Quality Codes: 6 Independent with activity with or without an assistive device 5 Patient requires set up or clean up by helper. Patient completes activity by themselves 4 Supervision or touching assist (CGA). [place] provide cues , steadying assist 3 The helper provides less than half the effort to complete the activity 2 The helper provides more than half the effort to complete the activity 1 Dependent. The helper does all the effort to complete an activity 7 Patient refused to complete or attempt activity 9 The patient did not perform the activity before the current illness or injury 88 Not attempted due to Medical conditions or safety concerns Transfers (B, C, W/C) (FIM): 4 Bed to/from Chair: 4 min/CGA with stand pivot transfers Weight Bearing Right Lower Extremity: Right Weight Bearing/Tolerated Left Lower Extremity: Left (BKA) Wheelchair Training Does the Pt Use a Wheelchair?: Yes Wheelchair (FIM): 5 Distance: 'x2 Wheelchair Level of Assist: 5 Type of Wheelchair: Manual Exercises NuStep Minutes: 10 NuStep Workload: 5 Treatments transfers, wheelchair mobility, functional strengthening Assessment Current Status: Poor Progress Patient extremely drowsy during treatment, falls asleep during treatment constantly, it interferes with therapy a lot, every activity takes extra time because patient will fall asleep PT Short Term Goals Short Term Goals Time Frame: Apr 14, 2018 Transfers (B,C,W/C) (FIM): 5 Gait (FIM): 2 Distance (FIM): 7=863-58 ft Gait Distance Comment: 25 Gait Level of Assist: 4 Gait Assistive Device: FWW Wheelchair (FIM): 5 Wheelchair distance (FIM): 3=150 ft Wheelchair Distance: 150'x2 PT Semiconductor Assembler Goals Longterm Goals PT Longterm Goals Time Frame: Apr 30, 2018 Transfers (B,C,W/C) (FIM): 6 Sit to Lying (QC): 6 Lying-Sitting on Side/Bed(QC): 6 Sit to Stand (QC): 6 Rollin Roll Left to Right (QC): 6 Chair/Wsw-ze-Kufcc Xfer(QC): 6 Car Transfer (QC): 5 Does the Patient Walk: No and Walking Goal IS indicated Gait (FIM): 2 Gait distance (FIM): 0=033-09 ft Distance: 25 ft Walk 10 feet (QC): 6 Walk 10ft-Uneven Surface(QC): 6 Walk 50ft with 2 Turns (QC): 88 Walk 150 ft (QC): 88 Gait Level of Assist: 6 Gait Assistive Device: FWW Does the Pt use WC or Scooter?: Yes Wheelchair (FIM): 6 Wheelchair distance (FIM): 3=150 ft Wheel 50 feet with 2 turns (QC: 6 Stairs (FIM): 5 (household; modified scooting on his buttock) # of Steps: 4 1 Step (curb) (QC): 6 4 Steps (QC): 6 12 Steps (QC): 88 Picking up an Object (QC): 6 (with a life manager) PT Plan Problem List Problem List: Activity Tolerance, Functional Strength, Safety, Balance, Gait, Transfer, Bed Mobility, ROM Treatment/Plan Treatment Plan: Continue Plan of Care Treatment Plan: Bed Mobility, Education, Functional Activity Vickie, Functional Strength, Group Therapy, Gait, Safety, Therapeutic Exercise, Transfers Treatment Duration: Apr 30, 2018 Frequency: At least 5 of 7 days/Wk (IRF) Estimated Hrs Per Day: 1.5 hours per day Patient and/or Family Agrees t: Yes Safety Risks/Education Patient Education: Transfer Techniques, Correct Positioning, W/C Management, Safety Issues Teaching Recipient: Patient Teaching Methods: Demonstration, Discussion Response to Teaching: Reinforcement Needed Time/GCodes Time In: 1400 Time Out: 1430 Total Billed Treatment Time: 30 Total Billed Treatment [address] [facility] 20' EX 10' ALEJANDRA DEVINE PT Apr 08, 2018 14:54
[2018-04-08 15:42] VITALS: BP_SYST 138; BP_DIAS 74; BP_DIAS 83
--- NOTE | 2018-04-08 15:46 | Occupational Ther Daily Note ---
OT Current Status-Daily Note Subjective Pt stated, " I am sleepy all the time & tired now. What do you want. Therapist asked him , Are you ready for Therapy ? Pt says, I want to go home , lets go to built muscle. Pain Numeric Pain Scale: 4 Location: Left Location Body Site: Knee Pain Description: Ache, Sharp Mental Status/Objective Patient Orientation: Person, Place, Time Therapy Code Descriptions/Definitions Functional [place] Measure: 0=Not Assessed/NA 4=Minimal Assistance 1=Total Assistance 5=Supervision or Setup 2=Maximal Assistance 6=Modified [place] 3=Moderate Assistance 7=Complete [place] ADL-Treatment Patient participated in func.bed mobility, func trasfer training from bed to w/ c with transfer board, safety education, strengthening ex , trunk balancing ex, to improve activity tolerance, to increase strength & endurance, trunk balance, cognition. Pt needs SBA from supine to sit in bed & to bed side, min A for func transfer with sliding transfer board to w/c , Pr performed 30 reps x 2 sets x 3 lbs wt to both elbow & shoulder flex/ext. 30 reps x 2sets with red theraband in all plane of motion .pt very cooperative & doing good. Therapy Code Descriptions/Definitions Functional [place] Measure: 0=Not Assessed/NA 4=Minimal Assistance 1=Total Assistance 5=Supervision or Setup 2=Maximal Assistance 6=Modified [place] 3=Moderate Assistance 7=Complete [place] Therapy Quality Codes: 6 Independent with activity with or without an assistive device 5 Patient requires set up or clean up by helper. Patient completes activity by themselves 4 Supervision or touching assist (CGA). [place] provide cues , steadying assist 3 The helper provides less than half the effort to complete the activity 2 The helper provides more than half the effort to complete the activity 1 Dependent. The helper does all the effort to complete an activity 7 Patient refused to complete or attempt activity 9 The patient did not perform the activity before the current illness or injury 88 Not attempted due to Medical conditions or safety concerns Eating (FIM): 7 Eating (QC): 6 Grooming (FIM): 5 Oral Hygiene (QC): 5 Bathing (FIM): 0 Shower/Bathe Self (QC): 0 Upper Body (FIM): 5 Upper Body Dressing (QC): 5 Lower Body Dressing (FIM): 4 Lower Body Dressing (QC): 4 On/Off Footwear (QC): 0 Toileting (FIM): 0 Toileting Hygiene (QC): 0 Transfers (B, C, W/C) (FIM): 4 Toilet/Commode Transfer (FIM): 4 Toilet Transfer (QC): 4 Tub Transfer(FIM): 0 Shower Transfer(FIM): 4 Education OT Patient Education: Correct positioning, Safety issues Teaching Recipient: Patient Teaching Methods: Demonstration, Discussion Response to Teaching: Verbalize Understanding, Return Demonstration OT Short Term Goals Short Term Goals Time Frame: Apr 21, 2018 Eating(FIM): 7 Grooming(FIM): 7 Bathing(FIM): 5 Bathing Location: L Arm, R Arm, L Upper Leg, R Upper Leg, L Lower Leg ( including foot), R Lower Leg (including foot), Chest, Abdomen, Buttocks, Perineal Area Upper Body Dressing(FIM): 7 Lower Body Dressing(FIM): 4 Toileting(FIM): 4 (with transfer bench) Transfers (B,C,W/C) (FIM): 5 Toilet/Commode Transfer(FIM): 4 Additional Short Term Goals: 1-Demonstrate ADL Tasks, 2-Verbalize Understanding , 3-ImproveStrength/Vickie 1=Demonstrate adherence to instructed precautions during ADL tasks. 2=Patient will verbalize/demonstrate understanding of assistive devices/ modifications for ADL. 3=Patient will improve strength/tolerance for activity to enable patient to perform ADL's. OT Half-Way Goals Assayer Goals Time Frame: May 05, 2018 Eating (FIM): 7 Eating (QC): 6 Groomin Oral Hygiene (QC): 6 Bathing(FIM): 6 Bathing Location: L Arm, R Arm, L Upper Leg, R Upper Leg, L Lower Leg ( including foot), R Lower Leg (including foot), Chest, Abdomen, Buttocks, Perineal Area Shower/Bathe Self (QC): 6 Upper Body Dressing(FIM): 7 Upper Body Dressing (QC): 6 Lower Body Dressing(FIM): 5 Lower Body Dressing (QC): 5 Toileting Hygiene (QC): 6 Transfers (B,C,W/C) (FIM): 5 Toilet/Commode Transfer(FIM): 6 Toilet/Commode Transfer (QC): 5 Shower Transfer(FIM): 6 Additional Goals: 1-Demonstrate ADL Tasks, 2-Verbalize Understanding, 3- ImproveStrength/Vickie 1=Demonstrate adherence to instructed precautions during ADL tasks. 2=Patient will verbalize/demonstrate understanding of assistive devices/ modifications for ADL. 3=Patient will improve strength/tolerance for activity to enable patient to perform ADL's. OT Education/Plan Problem List/Assessment Assessment: Decreased Activ Tolerance, Decreased Safety Aware, Decreased UE Strength, Impaired Bed Mobility, Impaired Coordination, Impaired Funct Balance, Impaired Self-Care Skills Discharge Recommendations Plan/Recommendations: Continue POC Therapy D/C Recommendations: Home Independently, Occupational Therapy Home Care Equpiment Recommendations-D/C: Bath Chair, Extended Shower Sprayer, Turkey Roll Maker Barriers to Progress Left BK Amputation Patient/Family Goals To return home Independently with AD. Treatment Plan/Plan of Care Patient would benefit from OT for education, treatment and training to promote independence in ADL's, mobility, safety and/or upper extremity function for ADL' s. Plan of Care: ADL Retraining, Cognitive Retraining, Functional Mobility, Group Exercise/Act as Ind, UE Funct Exercise/Act Treatment Duration: May 05, 2018 Frequency: At least 5 of 7 days/Wk (IRF) Estimated Hrs Per Day: 1.5 hours per day Agreement: Yes Rehab Potential: Good Time/GCodes Start Time: 13:00 Stop Time: 15:00 Total Time Billed (hr/min): 75 Billed Treatment Time Total min 75 min. ADLs 45 min 2519-8801 & Ex 30 min [id number] GITA GASPAR OT Apr 08, 2018 15:46
[2018-04-08] MEDS: HYDROcodone/APAP 5 MG/325 MG (LORTAB) TAB PO PRN (16:09)
--- NOTE | 2018-04-08 16:41 | Progress Note ---
Subjective Date Seen by a Provider: Apr 08, 2018 Time Seen by a Provider: 16:34 Subjective/Events-last exam having pain to the left lower extremity. controlled with pain meds. not urinating, johnson removed this morning about to have bladder scan. denies n/v fever sweats chills shortness of breath or chest pain. Objective Exam Vital Signs Date Time Temp Pulse Resp B/P (MAP) Pulse Ox O2 Delivery O2 Flow Rate FiO2 04/08/18 15:42 97.1 54 14 138/83 (101) 98 Room Air 04/08/18 08:00 Room Air 04/08/18 06:31 95 Room Air 04/08/18 06:20 99.2 61 18 134/76 (95) 99 Room Air 04/07/18 20:40 Room Air 04/07/18 20:25 94 Room Air 04/07/18 18:00 Room Air 04/07/18 17:24 Room Air I & O 04/08/18 07:00 Intake Total 1000 ml Output Total 750 ml Balance 250 ml Capillary Refill : General Appearance: No Apparent Distress, WD/WN, Chronically ill HEENT: PERRL/EOMI, Normal ENT Inspection Neck: Full Range of Motion, Normal Inspection, Non Tender, Supple, Carotid Bruit Respiratory: Chest Non Tender, No Accessory Muscle Use, No Respiratory Distress Cardiovascular: Regular Rate, Rhythm Gastrointestinal: non tender, soft Extremity: Normal Capillary Refill, Normal Inspection, Normal Range of Motion, Non Tender, No Calf Tenderness, No Pedal Edema, Other (left) Neurologic/Psychiatric: Alert, Oriented x3, No Motor/Sensory Deficits, Normal Mood/Affect Skin: Normal Color, Warm/Dry Lymphatic: No Adenopathy Results Lab Laboratory Tests 04/07/18 20:16: Glucometer 115H 04/08/18 05:51: Glucometer 93 04/08/18 09:00: White Blood Count 8.0, Red Blood Count 3.84L, Hemoglobin 11.1L, Hematocrit 34L, Mean Corpuscular Volume 90, Mean Corpuscular Hemoglobin 29, Mean Corpuscular Hemoglobin Concent 32, Red Cell Distribution Width 16.9H, Platelet Count 138, Mean Platelet Volume 11.3H, Neutrophils (%) (Auto) 77H, Lymphocytes (%) (Auto) 12, Monocytes (%) (Auto) 10, Eosinophils (%) (Auto) 1, Basophils (%) (Auto) 0, Neutrophils # (Auto) 6.2, Lymphocytes # (Auto) 0.9L, Monocytes # (Auto) 0.8, Eosinophils # (Auto) 0.1, Basophils # (Auto) 0.0, Sodium Level 131L, Potassium Level 4.5, Chloride Level 101, Carbon Dioxide Level 20L, Anion Gap 10, Blood Urea Nitrogen 34H, Creatinine 2.72#H, Estimat Glomerular Filtration Rate 24, BUN /Creatinine Ratio 13, Glucose Level 100, Calcium Level 8.5, Corrected Calcium 9.7, Total Bilirubin 1.0, Aspartate Amino Transf (AST/SGOT) 45H, Alanine Aminotransferase (ALT/SGPT) 26, Alkaline Phosphatase 138H, Total Protein 5.7L, Albumin 2.5L 04/08/18 11:11: Glucometer 127H Assessment/Plan Assessment/Plan Assessment/Plan s/p left bka dressing change daily will have prosthetics contacted pain control. Clinical Quality Measures DVT/VTE Risk/Contraindication: Risk Factor Score Per Nursin RFS Level Per Nursing on Admit: 4+=Very High LEIGH ANN FUCHS DO Apr 08, 2018 16:41
--- NOTE | 2018-04-08 17:11 | NUR ---
has not voided since johnson removed this am at 6:30, po fluids encouraged, bladder scan shows 300, Patient does not want the catheter back in and said he will go when he wants to, Dr Colon notified
--- NOTE | 2018-04-08 17:43 | NUR ---
DR MEEHAN NOTIFIED THAT PATIENT HAS NOT VOIDED SINCE CELESTE REMOVED, NO NEW ORDERS.
[2018-04-08] MEDS: POLYETHYLENE GLYCOL 17 GM (MIRALAX) PACK PO SCH (18:16)
[2018-04-08 21:43] VITALS: BP 153/81
[2018-04-08] MEDS: ATORVASTATIN 80 MG (LIPITOR) TABLET PO SCH (21:44)
[2018-04-08] MEDS: BETHANECHOL 25 MG (URECHOLINE) TAB PO SCH (21:44)
[2018-04-09] MEDS: HYDROmorphone 2 MG/ML VIAL (DILAUDID) IV PRN ×4 (04:30→21:08)
[2018-04-09] MEDS: ALPRAZolam 0.25 MG (XANAX) TAB PO PRN (04:30)
[2018-04-09] MEDS: BETHANECHOL 25 MG (URECHOLINE) TAB PO SCH ×4 (05:24→21:08)
[2018-04-09] MEDS: LEVOTHYROXINE 100 MCG (LEVOTHROID) TAB PO SCH (05:24)
[2018-04-09 06:26] VITALS: BP 109/70
[2018-04-09] MEDS: inSUlin ASPART (NovoLOG) 1 UNIT/0.01 ML (CHARGE PER UNIT) SC SCH ×4 (06:28→21:08)
--- NOTE | 2018-04-09 08:44 | PM&R Progress Note ---
Subjective This was a face to face visit with the patient. Date Seen by Provider: Apr 09, 2018 Time Seen by Provider: 08:00 Subjective/Events-last exam Patient was seen in his room while he was in bed Refuses catheter and only went 100cc this am when he had a large BM Creat stable Patient has a difficult personality chronically OK with bladder scan at least Checked meds and labs Urecholine started Review of Systems General: Fatigue Genitourinary: Retention Musculoskeletal: leg pain Objective Physician Exam Last Set of Vital Signs Vital Signs Date Time Temp Pulse Resp B/P (MAP) Pulse Ox O2 Delivery O2 Flow Rate FiO2 04/09/18 06:26 96.9 54 20 109/70 (83) 97 Room Air Capillary Refill : I&O Intake and Output 04/09/18 00:00 Intake Total 1200 ml Output Total 150 ml Balance 1050 ml Intake Oral 1200 ml Output Urine Total 150 ml General: Alert, Oriented X3, Cooperative HEENT: Atraumatic, PERRLA Neck: Supple, No JVD, No Thyromegaly Lungs: Normal Air Movement, Other (rhonchi) Heart: Regular Rate, Normal S1, Normal S2, Other (systolic murmur at the left sternal border) Abdomen: Normal Bowel Sounds, Soft, No Tenderness, No Hepatosplenomegaly, No Masses Extremities: No Clubbing, No Cyanosis, No Edema, No Tenderness/Swelling, Other (BKA) Skin: No Rashes, No Breakdown, No Significant Lesion Neuro: Normal Speech, Normal Tone, Sensation Intact Psych/Mental Status: Mental Status NL, Mood NL Results Lab Data Laboratory Tests 04/07/18 16:12: Glucometer 210H 04/07/18 20:16: Glucometer 115H 04/08/18 05:51: Glucometer 93 04/08/18 09:00: White Blood Count 8.0, Red Blood Count 3.84L, Hemoglobin 11.1L, Hematocrit 34L, Mean Corpuscular Volume 90, Mean Corpuscular Hemoglobin 29, Mean Corpuscular Hemoglobin Concent 32, Red Cell Distribution Width 16.9H, Platelet Count 138, Mean Platelet Volume 11.3H, Neutrophils (%) (Auto) 77H, Lymphocytes (%) (Auto) 12, Monocytes (%) (Auto) 10, Eosinophils (%) (Auto) 1, Basophils (%) (Auto) 0, Neutrophils # (Auto) 6.2, Lymphocytes # (Auto) 0.9L, Monocytes # (Auto) 0.8, Eosinophils # (Auto) 0.1, Basophils # (Auto) 0.0, Sodium Level 131L, Potassium Level 4.5, Chloride Level 101, Carbon Dioxide Level 20L, Anion Gap 10, Blood Urea Nitrogen 34H, Creatinine 2.72#H, Estimat Glomerular Filtration Rate 24, BUN /Creatinine Ratio 13, Glucose Level 100, Calcium Level 8.5, Corrected Calcium 9.7, Total Bilirubin 1.0, Aspartate Amino Transf (AST/SGOT) 45H, Alanine Aminotransferase (ALT/SGPT) 26, Alkaline Phosphatase 138H, Total Protein 5.7L, Albumin 2.5L 04/08/18 11:11: Glucometer 127H 04/08/18 16:26: Glucometer 138H 04/08/18 20:43: Glucometer 164H 04/09/18 06:26: Glucometer 169H Current Funtional Status Therapies Wean off pain meds Bladder management SW consult for DC needs which will be numerous since he lacks basic resources Assessment/Plan Assessment and Plan (1) Amput below knee, unilat Status: Acute (2) CKD (chronic kidney disease) stage 3, GFR 30-59 ml/min Status: Chronic (3) Anemia in chronic kidney disease Status: Chronic (4) Ischemic cardiomyopathy Status: Chronic (5) Essential (primary) hypertension Status: Chronic (6) PVD (peripheral vascular disease) Status: Chronic (7) Dyspnea Qualifiers: Qualified Codes: R06.00 - Dyspnea, unspecified Status: Acute (8) Urinary retention Status: Acute (9) Insulin dependent diabetes mellitus Status: Chronic Co-Morbidities that are continuing to impact the rehab process: (include details ) ABIODUN SOLANO DO Apr 09, 2018 08:44
--- NOTE | 2018-04-09 08:46 | Cardiology Progress Note ---
Subjective Date Seen by Provider: Apr 09, 2018 Time Seen by Provider: 08:43 Subjective/Events-last exam Patient is sitting up in bed, complaining of some phantom pain, denies any chest pain or dyspnea. Review of Systems General: No Night Sweats, No Fatigue, No Malaise HEENT: No Visual Changes, No Dysphasia Pulmonary: No Dyspnea, No Cough Cardiovascular: No: Chest Pain, Palpitations Gastrointestinal: No: Nausea, Vomiting, Abdominal Pain Genitourinary: No Dysuria, No Frequency Musculoskeletal: No: neck pain Neurological: Weakness; No: Numbness, Change in speech, Confusion Objective-Cardiology Exam Last Set of Vital Signs Vital Signs 04/09/18 06:26 Temp 96.9 Pulse 54 Resp 20 B/P (MAP) 109/70 (83) Pulse Ox 97 O2 Delivery Room Air Capillary Refill : I&O Intake and Output 04/09/18 00:00 Intake Total 1200 ml Output Total 150 ml Balance 1050 ml Intake Oral 1200 ml Output Urine Total 150 ml General: Alert, Oriented X3, Cooperative HEENT: Atraumatic, PERRLA Neck: Supple, No JVD, No Thyromegaly Lungs: Normal Air Movement, Other (rhonchi) Heart: Regular Rate, Normal S1, Normal S2, Other (systolic murmur at the left sternal border) Abdomen: Normal Bowel Sounds, Soft, No Tenderness, No Hepatosplenomegaly, No Masses Extremities: No Clubbing, No Cyanosis, No Edema, No Tenderness/Swelling, Other (BKA) Skin: No Rashes, No Breakdown, No Significant Lesion Neuro: Normal Speech, Normal Tone, Sensation Intact Psych/Mental Status: Mental Status NL, Mood NL Results Lab Laboratory Tests 04/08/18 09:00 A/P-Cardiology Admission Diagnosis Peripheral arterial disease Coronary artery disease Hypertension Hyperlipidemia Assessment/Plan Nonhealing foot ulcer, recurrent, extensive peripheral arterial disease, underwent multiple interventions in the past, failing percutaneous intervention with persistent nonhealing wound, s/p left BKA on 04/04/18, history of right toes amputations Acute on chronic renal failure, has been followed by a geoint analyst, continue to monitor renal function Coronary artery disease, history of CABG 4 in 2008 with cardiac catheterization June 02, [address] Arvizu revealing severe three-vessel [place] coronary artery disease with non-bypassed RCA, patent OSBRONE to LAD, patent vein graft to first diag, patent vein graft to first OM. There was occluded jump graft to the second obtuse marginal branch with successful PCI using bare-metal vision stent 3.0 x 28 mm to the second OM. At that time was reported patient staged intervention to the right and third OM branch after gallbladder removal by Dr. Arvizu, had stress test done at [facility] within then and no further intervention was made. Patient was to be scheduled for [facility] with intervention after healing of Left foot ulcer, however, patient did not follow up, Cardiac catheterization was carried out by Dr. Busch in January 2015 and reported as patent OSBORNE to the LAD vein graft to the diagonal artery and vein graft to the obtuse marginal artery, small vessel disease distally, the right coronary artery has severe diffuse disease, Dr. Busch felt that it is high risk for intervention at this time, medical therapy is recommended. Patient will require significant amount of stenting with limited benefit. Continue to monitor at this time Significant peripheral arterial disease, multiple intervention by Dr. Beebe in the past. Extensive workup in the past, angiogram was done on May 30, 2016 which showed on the right side subtotal occlusion of the anterior tibial artery , severe disease at the posterior tibial and peroneal artery and distal popliteal artery successful balloon angioplasty to the anterior tibial artery using 2.0 then 3.0 balloon with excellent results, balloon angioplasty to the popliteal artery using Lutonix 4.018 mm with excellent results. On July 02, 2016 patient was noted to have total occlusion of the anterior tibial artery of the left leg with balloon angioplasty using 3x100 balloon with excellent results. Return on July 04, 2016 and underwent intervention on the right lower extremity using Lutonix to the distal SFA 6 time 150 mm with excellent results. Patient has small vessel disease distally. On May 01, 2017 after having a nonhealing wound to the left heel. Was found to have total occlusion of the left anterior tibial artery, complex intervention using multiple wires and balloons with excellent results. Repeat angiogram was done on January 01, 2018 showing total occlusion of the anterior tibial artery with unsuccessful attempt to cross the lesion, I was able to do balloon angioplasty for severe disease of the peroneal artery. Patient still have severe stenosis at the distal SFA. Patient was referred to [facility], underwent angiogram on January 10, 2018 had left SFA angioplasty with drug-coated balloon, atherectomy of the anterior tibial artery with jet stream followed by angioplasty of the anterior tibial artery and peroneal artery with drug-coated balloons, angioplasty to the dorsalis pedis. Unsuccessful posterior tibial artery cannulation. His peripheral arterial disease In the small vessel at the right lower extremity is deemed inoperable at this time. s/p Left BKA Congestive heart failure, ischemic cardiomyopathy, LV systolic dysfunction. Persistent cardiomyopathy with ejection fraction 20-25 percent, last echocardiogram was done in July 2017. History of single-chamber ICD implant for primary prevention. Maintained on beta kathrin. Unable to tolerate NORMAN-I or ARB secondary to renal function. Continue to monitor Paroxysmal atrial fibrillation-patient noted to have episodes of atrial fibrillation on his first ICD interrogation, longest episode up to one hour. continue on current medication including amiodarone and monitor Tobaccoism, reports recently quit smoking. Educated on importance of smoking cessation. History of port placement on the right side, status post retrieval after fractured port in June 2016 Hypertension, controlled, continue to monitor. Hyperlipidemia, was started on Lipitor 80 mg daily. Continue to monitor Diabetes mellitus, followed and monitored by primary care physician. Mild bilateral nonobstructive carotid artery stenosis, last carotid ultrasound was done in December 2017, continue to monitor Clinical Quality Measures DVT/VTE Risk/Contraindication: Risk Factor Score Per Nursin RFS Level Per Nursing on Admit: 4+=Very High SHAYNA GRANDE Apr 09, 2018 08:46
--- NOTE | 2018-04-09 09:22 | Physical Therapy Daily Note ---
PT Daily Note-Current Subjective Pt call light on and requesting assist to change position. Mental Status Patient Orientation: Person, Place, Time, Situation Transfers Therapy Code Descriptions/Definitions Functional [place] Measure: 0=Not Assessed/NA 4=Minimal Assistance 1=Total Assistance 5=Supervision or Setup 2=Maximal Assistance 6=Modified [place] 3=Moderate Assistance 7=Complete [place] Therapy Quality Codes: 6 Independent with activity with or without an assistive device 5 Patient requires set up or clean up by helper. Patient completes activity by themselves 4 Supervision or touching assist (CGA). [place] provide cues , steadying assist 3 The helper provides less than half the effort to complete the activity 2 The helper provides more than half the effort to complete the activity 1 Dependent. The helper does all the effort to complete an activity 7 Patient refused to complete or attempt activity 9 The patient did not perform the activity before the current illness or injury 88 Not attempted due to Medical conditions or safety concerns Weight Bearing Right Lower Extremity: Right Weight Bearing/Tolerated Left Lower Extremity: Left (BKA) Treatments Pt requesting to move about in bed and wanting to sit EOB to change positions for a bit. Pt is SBA with bed mobiltiy with skilled cues for sequencing and safety. Pt able to transition sup to sit EOB using bedrail. Pt sat EOB several minutes and performed deep breathing activities as well as upper back extension. SBA with sitting EOB. Pt then returned to bed. All needs met post treatment. Assessment Reported feeling better after sitting EOB. PT Short Term Goals Short Term Goals Time Frame: Apr 14, 2018 Transfers (B,C,W/C) (FIM): 5 Gait (FIM): 2 Distance (FIM): 7=156-39 ft Gait Distance Comment: 25 Gait Level of Assist: 4 Gait Assistive Device: FWW Wheelchair (FIM): 5 Wheelchair distance (FIM): 3=150 ft Wheelchair Distance: 'x2 PT Group Home Goals Admin Dir Goals PT Group Home Goals Time Frame: Apr 30, 2018 Transfers (B,C,W/C) (FIM): 6 Sit to Lying (QC): 6 Lying-Sitting on Side/Bed(QC): 6 Sit to Stand (QC): 6 Rollin Roll Left to Right (QC): 6 Chair/Auq-ev-Zxtbm Xfer(QC): 6 Car Transfer (QC): 5 Does the Patient Walk: No and Walking Goal IS indicated Gait (FIM): 2 Gait distance (FIM): 5=947-38 ft Distance: 25 ft Walk 10 feet (QC): 6 Walk 10ft-Uneven Surface(QC): 6 Walk 50ft with 2 Turns (QC): 88 Walk 150 ft (QC): 88 Gait Level of Assist: 6 Gait Assistive Device: FWW Does the Pt use WC or Scooter?: Yes Wheelchair (FIM): 6 Wheelchair distance (FIM): 3=150 ft Wheel 50 feet with 2 turns (QC: 6 Stairs (FIM): 5 (household; modified scooting on his buttock) # of Steps: 4 1 Step (curb) (QC): 6 4 Steps (QC): 6 12 Steps (QC): 88 Picking up an Object (QC): 6 (with a hunting and fishing guide) PT Plan Problem List Problem List: Activity Tolerance, Functional Strength, Safety, Balance, Transfer, Bed Mobility Treatment/Plan Treatment Plan: Continue Plan of Care Treatment Plan: Bed Mobility, Education, Functional Activity Vickie, Functional Strength, Group Therapy, Gait, Safety, Therapeutic Exercise, Transfers Treatment Duration: Apr 30, 2018 Frequency: At least 5 of 7 days/Wk (IRF) Estimated Hrs Per Day: 1.5 hours per day Patient and/or Family Agrees t: Yes Safety Risks/Education Patient Education: Reviewed Precautions Teaching Recipient: Patient Teaching Methods: Discussion Response to Teaching: Verbalize Understanding Time/GCodes Time In: 845 Time Out: 901 Total Billed Treatment Time: 16 Total Billed Treatment visit FA 16 MOHAN HAGAN PT Apr 09, 2018 09:22
--- NOTE | 2018-04-09 09:24 | Occupational Ther Daily Note ---
OT Current Status-Daily Note Subjective Pt stated, I could'nt sleep last night. I am tired. Pain Numeric Pain Scale: 7 Location: Left Location Body Site: Calf Pain Description: Sharp Mental Status/Objective Patient Orientation: Person, Place, Time Therapy Code Descriptions/Definitions Functional [place] Measure: 0=Not Assessed/NA 4=Minimal Assistance 1=Total Assistance 5=Supervision or Setup 2=Maximal Assistance 6=Modified [place] 3=Moderate Assistance 7=Complete [place] ADL-Treatment Pt refused for shower today. Ready for spongue bath . Pt wiped face, both arms, chest , legs, therapist help in wiping back & Rt foot .Pt func transfered from bed to w/c with transfer board with SBA, propel w/c to therapy room, participated in trunk balancing ex & Strengthening ex to BUE . Therapy Code Descriptions/Definitions Functional [place] Measure: 0=Not Assessed/NA 4=Minimal Assistance 1=Total Assistance 5=Supervision or Setup 2=Maximal Assistance 6=Modified [place] 3=Moderate Assistance 7=Complete [place] Therapy Quality Codes: 6 Independent with activity with or without an assistive device 5 Patient requires set up or clean up by helper. Patient completes activity by themselves 4 Supervision or touching assist (CGA). [place] provide cues , steadying assist 3 The helper provides less than half the effort to complete the activity 2 The helper provides more than half the effort to complete the activity 1 Dependent. The helper does all the effort to complete an activity 7 Patient refused to complete or attempt activity 9 The patient did not perform the activity before the current illness or injury 88 Not attempted due to Medical conditions or safety concerns Eating (FIM): 7 Eating (QC): 6 Grooming (FIM): 6 Oral Hygiene (QC): 6 Bathing (FIM): 0 Shower/Bathe Self (QC): 0 Upper Body (FIM): 5 Upper Body Dressing (QC): 5 Lower Body Dressing (FIM): 4 Lower Body Dressing (QC): 4 Toileting (FIM): 0 Toileting Hygiene (QC): 0 Transfers (B, C, W/C) (FIM): 5 Toilet/Commode Transfer (FIM): 5 Toilet Transfer (QC): 0 Tub Transfer(FIM): 0 Shower Transfer(FIM): 0 Education OT Patient Education: Correct positioning, Safety issues Teaching Recipient: Patient Teaching Methods: Demonstration, Discussion Response to Teaching: Verbalize Understanding, Return Demonstration OT Short Term Goals Short Term Goals Time Frame: Apr 21, 2018 Eating(FIM): 7 Grooming(FIM): 7 Bathing(FIM): 5 Bathing Location: L Arm, R Arm, L Upper Leg, R Upper Leg, L Lower Leg ( including foot), R Lower Leg (including foot), Chest, Abdomen, Buttocks, Perineal Area Upper Body Dressing(FIM): 7 Lower Body Dressing(FIM): 4 Toileting(FIM): 4 (with transfer bench) Transfers (B,C,W/C) (FIM): 5 Toilet/Commode Transfer(FIM): 4 Additional Short Term Goals: 1-Demonstrate ADL Tasks, 2-Verbalize Understanding , 3-ImproveStrength/Vickie 1=Demonstrate adherence to instructed precautions during ADL tasks. 2=Patient will verbalize/demonstrate understanding of assistive devices/ modifications for ADL. 3=Patient will improve strength/tolerance for activity to enable patient to perform ADL's. OT Shank Archer Goals Prison Goals Time Frame: May 05, 2018 Eating (FIM): 7 Eating (QC): 6 Groomin Oral Hygiene (QC): 6 Bathing(FIM): 6 Bathing Location: L Arm, R Arm, L Upper Leg, R Upper Leg, L Lower Leg ( including foot), R Lower Leg (including foot), Chest, Abdomen, Buttocks, Perineal Area Shower/Bathe Self (QC): 6 Upper Body Dressing(FIM): 7 Upper Body Dressing (QC): 6 Lower Body Dressing(FIM): 5 Lower Body Dressing (QC): 5 Toileting Hygiene (QC): 6 Transfers (B,C,W/C) (FIM): 5 Toilet/Commode Transfer(FIM): 6 Toilet/Commode Transfer (QC): 5 Shower Transfer(FIM): 6 Additional Goals: 1-Demonstrate ADL Tasks, 2-Verbalize Understanding, 3- ImproveStrength/Vickie 1=Demonstrate adherence to instructed precautions during ADL tasks. 2=Patient will verbalize/demonstrate understanding of assistive devices/ modifications for ADL. 3=Patient will improve strength/tolerance for activity to enable patient to perform ADL's. OT Education/Plan Problem List/Assessment Assessment: Decreased Activ Tolerance, Decreased Safety Aware, Decreased UE Strength, Dependent Transfers, Impaired Bed Mobility, Impaired Funct Balance, Impaired Self-Care Skills Discharge Recommendations Plan/Recommendations: Continue POC Therapy D/C Recommendations: Home Independently, Occupational Therapy Home Care Equpiment Recommendations-D/C: Extended Shower Sprayer, Ssis Architect Barriers to Progress Left BKA Patient/Family Goals To return home alone Independently. Treatment Plan/Plan of Care Treatment,Training & Education: Yes Patient would benefit from OT for education, treatment and training to promote independence in ADL's, mobility, safety and/or upper extremity function for ADL' s. Plan of Care: ADL Retraining, Cognitive Retraining, Functional Mobility, Group Exercise/Act as Ind, UE Funct Exercise/Act Treatment Duration: May 05, 2018 Frequency: At least 5 of 7 days/Wk (IRF) Estimated Hrs Per Day: 1.5 hours per day Agreement: Yes Rehab Potential: Good Time/GCodes Start Time: 08:30 Stop Time: 09:30 Total Time Billed (hr/min): 60 Billed Treatment Time 1, ADLs 30 & Ex 30 min . Total 60 [facility] GITA GASPAR OT Apr 09, 2018 09:24
[2018-04-09] MEDS: CARVEDILOL 6.25 MG (COREG) TAB PO SCH ×2 (09:51→21:08)
[2018-04-09] MEDS: ISOSORBIDE MONONITRATE 30 MG (IMDUR) TAB PO SCH (09:51)
[2018-04-09] MEDS: AMIODARONE 200 MG (CORDARONE) TAB PO SCH (09:51)
[2018-04-09] MEDS: HYDROcodone/APAP 5 MG/325 MG (LORTAB) TAB PO PRN (10:27)
[2018-04-09] MEDS: ENOXAPARIN 40 MG/0.4 ML (LOVENOX) SYR SC SCH (11:15)
--- NOTE | 2018-04-09 11:30 | NUR ---
pt voided 300cc emily urine when had lg bm on BSC
[2018-04-09] MEDS: RT-ALBUTEROL/IPRATROPIUM 3 ML (DUONEB) VIAL INH SCH (11:41)
--- NOTE | 2018-04-09 11:54 | Physical Therapy Daily Note ---
PT Daily Note-Current Subjective Pt sitting in [facility] upon arrival. Pt agrees to PT but reports "significant pain" , rating it 8/10. Pain Numeric Pain Scale: 8 Location: Left Location Body Site: Knee Pain Description: Ache, Tightness Mental Status Patient Orientation: Person, Place, Situation Attachments: Other-See Comments (NORMAN wrap for L stub) Transfers Therapy Code Descriptions/Definitions Functional [place] Measure: 0=Not Assessed/NA 4=Minimal Assistance 1=Total Assistance 5=Supervision or Setup 2=Maximal Assistance 6=Modified [place] 3=Moderate Assistance 7=Complete [place] Therapy Quality Codes: 6 Independent with activity with or without an assistive device 5 Patient requires set up or clean up by helper. Patient completes activity by themselves 4 Supervision or touching assist (CGA). [place] provide cues , steadying assist 3 The helper provides less than half the effort to complete the activity 2 The helper provides more than half the effort to complete the activity 1 Dependent. The helper does all the effort to complete an activity 7 Patient refused to complete or attempt activity 9 The patient did not perform the activity before the current illness or injury 88 Not attempted due to Medical conditions or safety concerns Scootin Supine to/from Sit: 5 Sit to Lying (QC): 5 Chair/Evq-qr-Cgedn Xfer(QC): 5 Bed to/from Chair: 5 Weight Bearing Right Lower Extremity: Right Weight Bearing/Tolerated Left Lower Extremity: Left (BKA) Exercises Supine Ex: Quad Set, Glut sets, Straight leg raise, Hip abd/add Supine Reps: 15 Treatments Pt completes Seated & Supine Ex. Pt takes rest breaks as needed. Pt is able to transfer from [facility] to [facility] using SPT at [facility]. Pt also wants to discuss proper pain management as well as day to day activities pt will need to be completing in order to get around in his current home (trailer) as well as house that is being rebuilt. Nurse arrives to give pain med as well as Family to visit at end of tx. Pt has all needs met. Assessment Current Status: Good Progress Pt wants to be very independent but CHARGE HISTOTECHNOLOGIST reminds pt of safety. PT Short Term Goals Short Term Goals Time Frame: Apr 14, 2018 Transfers (B,C,W/C) (FIM): 5 Gait (FIM): 2 Distance (FIM): 1=770-88 ft Gait Distance Comment: 25 Gait Level of Assist: 4 Gait Assistive Device: FWW Wheelchair (FIM): 5 Wheelchair distance (FIM): 3=150 ft Wheelchair Distance: 'x2 PT Vp Packaging Goals Residential Goals PT Vp Packaging Goals Time Frame: Apr 30, 2018 Transfers (B,C,W/C) (FIM): 6 Sit to Lying (QC): 6 Lying-Sitting on Side/Bed(QC): 6 Sit to Stand (QC): 6 Rollin Roll Left to Right (QC): 6 Chair/Nin-bp-Lvlee Xfer(QC): 6 Car Transfer (QC): 5 Does the Patient Walk: No and Walking Goal IS indicated Gait (FIM): 2 Gait distance (FIM): 9=171-88 ft Distance: 25 ft Walk 10 feet (QC): 6 Walk 10ft-Uneven Surface(QC): 6 Walk 50ft with 2 Turns (QC): 88 Walk 150 ft (QC): 88 Gait Level of Assist: 6 Gait Assistive Device: FWW Does the Pt use WC or Scooter?: Yes Wheelchair (FIM): 6 Wheelchair distance (FIM): 3=150 ft Wheel 50 feet with 2 turns (QC: 6 Stairs (FIM): 5 (household; modified scooting on his buttock) # of Steps: 4 1 Step (curb) (QC): 6 4 Steps (QC): 6 12 Steps (QC): 88 Picking up an Object (QC): 6 (with a investment professional) PT Plan Problem List Problem List: Activity Tolerance, Functional Strength, Safety, Balance, Gait Treatment/Plan Treatment Plan: Continue Plan of Care Treatment Plan: Bed Mobility, Education, Functional Activity Vickie, Functional Strength, Group Therapy, Gait, Safety, Therapeutic Exercise, Transfers Treatment Duration: Apr 30, 2018 Frequency: At least 5 of 7 days/Wk (IRF) Estimated Hrs Per Day: 1.5 hours per day Patient and/or Family Agrees t: Yes Safety Risks/Education Patient Education: Transfer Techniques, Correct Positioning, Safety Issues Teaching Recipient: Patient Teaching Methods: Discussion Response to Teaching: Verbalize Understanding Time/GCodes Time In: 930 Time Out: 1030 Total Billed Treatment Time: 60 Total Billed Treatment 1, FA x2 (30m) & EX x2 (30m) G Codes Necessary: No CHRISTI BERMUDEZ CHARGE HISTOTECHNOLOGIST Apr 09, 2018 11:54
--- NOTE | 2018-04-09 13:00 | Cardiology Progress Note ---
Subjective Date Seen by Provider: Apr 09, 2018 Time Seen by Provider: 12:58 Subjective/Events-last exam patient is laying down in bed, feeling better. Still having leg cramps. Review of Systems General: No Chills, No Night Sweats, No Fatigue, No Malaise, No Appetite, No Other HEENT: No Head Aches, No Visual Changes, No Eye Pain, No Ear Pain, No Dysphasia , No Sinus Congestion, No Post Nasal Drip, No Sore Throat, No Other Pulmonary: No Dyspnea, No Cough, No Pleuritic Chest Pain, No Other Cardiovascular: No: Chest Pain, Palpitations, Orthopnea, Paroxysmal Noc. Dyspnea, Edema, Lt Headedness, Other Gastrointestinal: No: Nausea, Vomiting, Abdominal Pain, Diarrhea, Constipation , Melena, Hematochezia, Other Objective-Cardiology Exam Last Set of Vital Signs Vital Signs 04/09/18 06:26 Temp 96.9 Pulse 54 Resp 20 B/P (MAP) 109/70 (83) Pulse Ox 97 O2 Delivery Room Air Capillary Refill : I&O Intake and Output 04/08/18 23:59 Intake Total 1200 ml Output Total 150 ml Balance 1050 ml Intake Oral 1200 ml Output Urine Total 150 ml General: Alert, Oriented X3, Cooperative HEENT: Atraumatic, PERRLA Neck: Supple, No JVD, No Thyromegaly Lungs: Normal Air Movement, Other (rhonchi) Heart: Regular Rate, Normal S1, Normal S2, Other (systolic murmur at the left sternal border) Abdomen: Normal Bowel Sounds, Soft, No Tenderness, No Hepatosplenomegaly, No Masses Extremities: No Clubbing, No Cyanosis, No Edema, No Tenderness/Swelling, Other (BKA) Skin: No Rashes, No Breakdown, No Significant Lesion Neuro: Normal Speech, Normal Tone, Sensation Intact Psych/Mental Status: Mental Status NL, Mood NL Results Lab Laboratory Tests Test 04/08/18 16:26 04/08/18 20:43 04/09/18 06:26 04/09/18 12:22 Range/Units Glucometer 138 H 164 H 169 H 170 H 70-110 MG/DL A/P-Cardiology Admission Diagnosis Peripheral arterial disease Coronary artery disease Hypertension Hyperlipidemia Assessment/Plan left BKA done on April 04, 2018 secondary to nonhealing foot ulcer, history of right toes amputation in the past. Extensive peripheral arterial disease as described below. Recovering slowly. Acute on chronic renal failure, has been followed by a dairy manufacturing technologist, continue to monitor renal function Coronary artery disease, history of CABG 4 in 2008 with cardiac catheterization June 02, [address] Arvizu revealing severe three-vessel [place] coronary artery disease with non-bypassed RCA, patent OSBORNE to LAD, patent vein graft to first diag, patent vein graft to first OM. There was occluded jump graft to the second obtuse marginal branch with successful PCI using bare-metal vision stent 3.0 x 28 mm to the second OM. At that time was reported patient staged intervention to the right and third OM branch after gallbladder removal by Dr. Arvizu, had stress test done at [facility] within then and no further intervention was made. Patient was to be scheduled for [facility] with intervention after healing of Left foot ulcer, however, patient did not follow up, Cardiac catheterization was carried out by Dr. Busch in January 2015 and reported as patent OSBORNE to the LAD vein graft to the diagonal artery and vein graft to the obtuse marginal artery, small vessel disease distally, the right coronary artery has severe diffuse disease, Dr. Busch felt that it is high risk for intervention at this time, medical therapy is recommended. Patient will require significant amount of stenting with limited benefit. Continue to monitor at this time Significant peripheral arterial disease, multiple intervention by Dr. Beebe in the past. Extensive workup in the past, angiogram was done on May 30, 2016 which showed on the right side subtotal occlusion of the anterior tibial artery , severe disease at the posterior tibial and peroneal artery and distal popliteal artery successful balloon angioplasty to the anterior tibial artery using 2.0 then 3.0 balloon with excellent results, balloon angioplasty to the popliteal artery using Lutonix 4.018 mm with excellent results. On July 02, 2016 patient was noted to have total occlusion of the anterior tibial artery of the left leg with balloon angioplasty using 3x100 balloon with excellent results. Return on July 04, 2016 and underwent intervention on the right lower extremity using Lutonix to the distal SFA 6 time 150 mm with excellent results. Patient has small vessel disease distally. On May 01, 2017 after having a nonhealing wound to the left heel. Was found to have total occlusion of the left anterior tibial artery, complex intervention using multiple wires and balloons with excellent results. Repeat angiogram was done on January 01, 2018 showing total occlusion of the anterior tibial artery with unsuccessful attempt to cross the lesion, I was able to do balloon angioplasty for severe disease of the peroneal artery. Patient still have severe stenosis at the distal SFA. Patient was referred to [facility], underwent angiogram on January 10, 2018 had left SFA angioplasty with drug-coated balloon, atherectomy of the anterior tibial artery with jet stream followed by angioplasty of the anterior tibial artery and peroneal artery with drug-coated balloons, angioplasty to the dorsalis pedis. Unsuccessful posterior tibial artery cannulation. His peripheral arterial disease In the small vessel at the right lower extremity is deemed inoperable at this time. s/p Left BKA Congestive heart failure, ischemic cardiomyopathy, LV systolic dysfunction. Persistent cardiomyopathy with ejection fraction 20-25 percent, last echocardiogram was done in July 2017. History of single-chamber ICD implant for primary prevention. Maintained on beta kathrin. Unable to tolerate NORMAN-I or ARB secondary to renal function. Continue to monitor Paroxysmal atrial fibrillation-patient noted to have episodes of atrial fibrillation on his first ICD interrogation, longest episode up to one hour. continue on current medication including amiodarone and monitor Tobaccoism, reports recently quit smoking. Educated on importance of smoking cessation. History of port placement on the right side, status post retrieval after fractured port in June 2016 Hypertension, controlled, continue to monitor. Hyperlipidemia, was started on Lipitor 80 mg daily. Continue to monitor Diabetes mellitus, followed and monitored by primary care physician. Mild bilateral nonobstructive carotid artery stenosis, last carotid ultrasound was done in December 2017, continue to monitor Clinical Quality Measures DVT/VTE Risk/Contraindication: Risk Factor Score Per Nursin RFS Level Per Nursing on Admit: 4+=Very High JORDEN GREER MD Apr 09, 2018 13:00
--- NOTE | 2018-04-09 13:18 | Progress Note-Urology ---
Progress Note-Urology Progress Notes/Assess & Plan Progress/Assessment & Plan VOIDING ON OWN. CHECK PVR. TOLERATES URECHOLINE WELL Final Diagnosis URINE RETENTION ANGELY MEEHAN MD Apr 09, 2018 13:18
--- NOTE | 2018-04-09 14:49 | NUR ---
Prosthetic rep here to talk w pt re: house coordinator.
--- NOTE | 2018-04-09 14:58 | Therapy Group Daily Note ---
Therapy Daily Group Note Patient Education Topic Home Safety Exercises LE Seated Exercise, UE Exercise Other/Notes Pt participated in group therapy with 3 to 1 ratio. Goals of session are understanding home safety and leading UE/LE seated exercises. Pt was transported to group in [facility] via w/c. Group consisted of introductions (name, place born, favorite food which was [place]). Pt introduced self appropriately and actively listened to peers. Pt was able to read and completed exercises. Dice were rolled for UE AROM/strengthening for amount of reps to complete for exercises. Pt confirms that he understands handout given for home safety education. Memory activity initiated for next group-yellow, cat, steak, trombone, trump. Pt met goals of session by participation and acknowledgement of topics. Pt is able to benefit from group by using exercises throughout therapy stay and at discharge and to make effective decisions for home safety when discharged. After therapy, pt lying in bed with call light/phone in reach. All needs met. Start Time: 13:00 Stop Time: 14:15 Total Billed Treatment Time: 75 Total Billed Treatment 1,GRP LIZ ARAIZA SPECIALTY DEVELOPMENT CONSULTANT Apr 09, 2018 14:58
--- NOTE | 2018-04-09 16:45 | NUR ---
Weekly team conference Discussed weekly team conference with patient. He is agreeable to re-check next week to evaluate progress. Continue plan of care.
[2018-04-09 19:00] VITALS: BP 133/79
[2018-04-09] MEDS: POLYETHYLENE GLYCOL 17 GM (MIRALAX) PACK PO SCH (19:17)
[2018-04-09] MEDS: ATORVASTATIN 80 MG (LIPITOR) TABLET PO SCH (21:08)
[2018-04-10 00:04] VITALS: BP 133/79
[2018-04-10] MEDS: inSUlin ASPART (NovoLOG) 1 UNIT/0.01 ML (CHARGE PER UNIT) SC SCH ×4 (04:58→21:07)
[2018-04-10] MEDS: BETHANECHOL 25 MG (URECHOLINE) TAB PO SCH ×4 (05:04→21:06)
[2018-04-10] MEDS: LEVOTHYROXINE 100 MCG (LEVOTHROID) TAB PO SCH (05:04)
[2018-04-10 05:34] VITALS: BP 99/61
[2018-04-10 05:43] LABS: CALCIUM 8.3 MG/DL (8.5-10.1); CREATININE SERUM 3.05 MG/DL (0.60-1.30); POTASSIUM 4.4 MMOL/L (3.6-5.0)
[2018-04-10] MEDS: RT-ALBUTEROL/IPRATROPIUM 3 ML (DUONEB) VIAL INH SCH ×2 (06:28→21:41)
[2018-04-10] MEDS ORDERED: HYDROmorphone 2 MG/ML VIAL (DILAUDID) IV PRN (08:30)
--- NOTE | 2018-04-10 08:41 | Cardiology Progress Note ---
Subjective Date Seen by Provider: Apr 10, 2018 Time Seen by Provider: 08:38 Subjective/Events-last exam patient is laying down in bed, did not sleep well last night, has been compared fatigue and loss of energy, has been borderline bradycardic and hypotensive. Review of Systems General: No Chills, No Night Sweats, No Fatigue, No Malaise, No Appetite, No Other HEENT: No Head Aches, No Visual Changes, No Eye Pain, No Ear Pain, No Dysphasia , No Sinus Congestion, No Post Nasal Drip, No Sore Throat, No Other Pulmonary: Dyspnea; No Cough, No Pleuritic Chest Pain, No Other Cardiovascular: No: Chest Pain, Palpitations, Orthopnea, Paroxysmal Noc. Dyspnea, Edema, Lt Headedness, Other Objective-Cardiology Exam Last Set of Vital Signs Vital Signs 04/10/18 04/10/18 04/10/18 00:04 05:34 06:28 Temp 98.0 Pulse 48 Resp 16 B/P (MAP) 99/61 (74) Pulse Ox 98 O2 Delivery Room Air FiO2 21 Capillary Refill : I&O Intake and Output 04/10/18 00:00 Intake Total 1350 ml Output Total 600 ml Balance 750 ml Intake Oral 1350 ml Output Urine Total 600 ml Bladder Scan Volume Amount 300 ml # Bowel Movements 3 General: Alert, Oriented X3, Cooperative HEENT: Atraumatic, PERRLA Neck: Supple, No JVD, No Thyromegaly Lungs: Normal Air Movement, Other (rhonchi) Heart: Regular Rate, Normal S1, Normal S2, Other (systolic murmur at the left sternal border) Abdomen: Normal Bowel Sounds, Soft, No Tenderness, No Hepatosplenomegaly, No Masses Extremities: No Clubbing, No Cyanosis, No Edema, No Tenderness/Swelling, Other (BKA) Skin: No Rashes, No Breakdown, No Significant Lesion Neuro: Normal Speech, Normal Tone, Sensation Intact Psych/Mental Status: Mental Status NL, Mood NL Results Lab Laboratory Tests 04/10/18 04:58 A/P-Cardiology Admission Diagnosis Peripheral arterial disease Coronary artery disease Hypertension Hyperlipidemia Assessment/Plan Left BKA done on April 04, 2018 secondary to nonhealing foot ulcer, history of right toes amputation in the past. Extensive peripheral arterial disease as described below. Recovering slowly. Acute on chronic renal failure, has been followed by a epic application coordinator, I will give him 1 L of saline and evaluate tolerance and response, continue to monitor renal function Bradycardia, decrease Coreg to 3.125 mg twice daily with parameters and monitor Coronary artery disease, history of CABG 4 in 2008 with cardiac catheterization June 02, [address] Arvizu revealing severe three-vessel [place] coronary artery disease with non-bypassed RCA, patent OSBORNE to LAD, patent vein graft to first diag, patent vein graft to first OM. There was occluded jump graft to the second obtuse marginal branch with successful PCI using bare-metal vision stent 3.0 x 28 mm to the second OM. At that time was reported patient staged intervention to the right and third OM branch after gallbladder removal by Dr. Arvizu, had stress test done at within then and no further intervention was made. Patient was to be scheduled for [facility] with intervention after healing of Left foot ulcer, however, patient did not follow up, Cardiac catheterization was carried out by Dr. Busch in January 2015 and reported as patent OSBORNE to the LAD vein graft to the diagonal artery and vein graft to the obtuse marginal artery, small vessel disease distally, the right coronary artery has severe diffuse disease, Dr. Busch felt that it is high risk for intervention at this time, medical therapy is recommended. Patient will require significant amount of stenting with limited benefit. Continue to monitor at this time Significant peripheral arterial disease, multiple intervention by Dr. Beebe in the past. Extensive workup in the past, angiogram was done on May 30, 2016 which showed on the right side subtotal occlusion of the anterior tibial artery , severe disease at the posterior tibial and peroneal artery and distal popliteal artery successful balloon angioplasty to the anterior tibial artery using 2.0 then 3.0 balloon with excellent results, balloon angioplasty to the popliteal artery using Lutonix 4.018 mm with excellent results. On July 02, 2016 patient was noted to have total occlusion of the anterior tibial artery of the left leg with balloon angioplasty using 3x100 balloon with excellent results. Return on July 04, 2016 and underwent intervention on the right lower extremity using Lutonix to the distal SFA 6 time 150 mm with excellent results. Patient has small vessel disease distally. On May 01, 2017 after having a nonhealing wound to the left heel. Was found to have total occlusion of the left anterior tibial artery, complex intervention using multiple wires and balloons with excellent results. Repeat angiogram was done on January 01, 2018 showing total occlusion of the anterior tibial artery with unsuccessful attempt to cross the lesion, I was able to do balloon angioplasty for severe disease of the peroneal artery. Patient still have severe stenosis at the distal SFA. Patient was referred to [facility], underwent angiogram on January 10, 2018 had left SFA angioplasty with drug-coated balloon, atherectomy of the anterior tibial artery with jet stream followed by angioplasty of the anterior tibial artery and peroneal artery with drug-coated balloons, angioplasty to the dorsalis pedis. Unsuccessful posterior tibial artery cannulation. His peripheral arterial disease In the small vessel at the right lower extremity is deemed inoperable at this time. s/p Left BKA Congestive heart failure, ischemic cardiomyopathy, LV systolic dysfunction. Persistent cardiomyopathy with ejection fraction 20-25 percent, last echocardiogram was done in July 2017. History of single-chamber ICD implant for primary prevention. Maintained on beta kathrin. Unable to tolerate ONRMAN-I or ARB secondary to renal function. Continue to monitor Paroxysmal atrial fibrillation-patient noted to have episodes of atrial fibrillation on his first ICD interrogation, longest episode up to one hour. continue on current medication including amiodarone and monitor Tobaccoism, reports recently quit smoking. Educated on importance of smoking cessation. History of port placement on the right side, status post retrieval after fractured port in June 2016 Hypertension, continue to monitor blood pressure Hyperlipidemia, was started on Lipitor 80 mg daily. Continue to monitor Diabetes mellitus, followed and monitored by primary care physician. Mild bilateral nonobstructive carotid artery stenosis, last carotid ultrasound was done in December 2017, continue to monitor Clinical Quality Measures DVT/VTE Risk/Contraindication: Risk Factor Score Per Nursin RFS Level Per Nursing on Admit: 4+=Very High JORDEN GREER MD Apr 10, 2018 08:41
[2018-04-10] MEDS ORDERED: NS IV 1000 ML 1,000 ML IV SCH (08:45)
--- NOTE | 2018-04-10 09:03 | Individualized Plan of Care ---
Individualized Plan of Care Rehab Nursing IPOC Order Admission Date Apr 07, 2018 at 11:33 Current Orders Orders Admission-Acute Rehab Unit (04/07/18 11:33) Admission-Acute Rehab Unit (04/07/18 11:57) Code/Resuscitation (04/07/18 11:58) Accucheck Achs ACHS (04/07/18 11:58) Activity (04/07/18 11:58) Ambulate 08,12,20 (04/07/18 11:58) Iv/Invasive Line Insertion .IV start (04/07/18 11:58) Initiate Admission Nursing Pro .admission (04/07/18 11:58) Intake & Output 06,14, (04/07/18 11:58) Medication-Hold (04/07/18 11:58) Oxygen-Administer , (04/07/18 11:58) Sequential Compression Device 08,20 (04/07/18 11:58) Straight Cath (Urinary) (04/07/18 11:58) Vital Signs: Every 4 Hours (Or (04/07/18 11:58) Cho 45g/M 3snack (12-1500 Nhan) (04/07/18 Dinner) Alprazolam Tablet (Xanax Tablet) (04/07/18 12:00) Acetaminophen Tablet (Tylenol Tablet) (04/07/18 12:00) Albuterol/Ipra Inhalation Soln (Duoneb I (04/07/18 21:00) Amiodarone Tablet (Cordarone Tablet) (04/08/18 09:00) Atorvastatin Tablet (Lipitor Tablet) (04/07/18 21:00) Calcium Carbonate Chew Tablet (Antacid C (04/07/18 12:00) Carvedilol Tablet (Coreg Tablet) (04/07/18 21:00) Docusate Sodium Capsule (Colace Capsule) (04/07/18 12:00) Enoxaparin Injection (Lovenox Injection) (04/08/18 11:00) Hydrocodone/Apap 5/325 Tablet (Lortab 5 (04/07/18 12:00) Hydromorphone Injection (Dilaudid Inject (04/07/18 12:00) Isosorbide Mononitrate Tablet (Imdur Tab (04/08/18 09:00) Levothyroxine Tablet (Synthroid Tablet) (04/08/18 06:30) Loperamide Capsule (Imodium Capsule) (04/07/18 12:00) Melatonin Tablet (Melatonin Tablet) (04/07/18 12:00) Ondansetron Injection (Zofran Injectio (04/07/18 12:00) Polyethylene Glycol Powder Pkt (Miralax (04/07/18 21:00) Saline Nasal Rush ([place] Nasal Rush) (04/07/18 12:00) Sodium Chloride Flush (Catheter Flush Sy (04/07/18 12:00) Diphenhydramine Tablet (Benadryl Tablet) (04/07/18 12:00) Guaifenesin/Codeine Syrup (Robitussin Ac (04/07/18 12:00) Insulin Aspart (Novolog) (Novolog (Charg (04/07/18 16:00) Consult Cardiology (04/07/18 11:58) Consult Physician (04/07/18 11:58) Occupational Therapy Order (04/07/18 11:58) Oxygen Delivery Set Up (04/07/18 11:58) Physical Therapy Oder (04/07/18 11:58) Svn Small Volume Nebulizer (04/07/18 11:58) Nuclear Auxiliary Operator Consult (04/07/18 11:58) Oxygen Delivery Set Up (04/07/18 11:58) Svn Small Volume Nebulizer (04/07/18 11:58) Alprazolam Tablet (Xanax Tablet) (04/07/18 12:00) Calcium Carbonate Chew Tablet (Antacid C (04/07/18 12:00) Diphenhydramine Tablet (Benadryl Tablet) (04/07/18 12:00) Docusate Sodium Capsule (Colace Capsule) (04/07/18 12:00) Melatonin Tablet (Melatonin Tablet) (04/07/18 12:00) Polyethylene Glycol Powder Pkt (Miralax (04/07/18 12:00) Request For Cognitive Services (04/07/18 12:05) Consult Urology (04/07/18 12:31) Influenza Quad (5+Yoa) 2017- (Afluria (04/07/18 13:30) Patient Visit (04/07/18 ) Pt Eval Moderate Complexity (04/07/18 ) Functional Activities, Ea 15 (04/07/18 ) Sequential Compression Device 08,20 (04/07/18 15:10) Dvt/Vte Risk - Notifiy Physici 08 (04/07/18 15:10) Patient Visit (04/07/18 ) Patient Visit (04/07/18 ) Therapeutic, Group (04/07/18 ) Patient Visit (04/07/18 ) Speech Sound Lang Comp (04/07/18 ) Catheter(Urinary) Discontinue (04/07/18 17:37) Nursing Communication (Order) (04/07/18 18:48) Cbc With Automated Diff (04/08/18 08:00) Comprehensive Metabolic Panel (04/08/18 08:00) Nursing Communication (Order) (04/08/18 15:06) Patient Visit (04/08/18 ) Wheelchair Mgmt/Propulsn 15min (04/08/18 ) Exercise Therap, Ea 15 Min (04/08/18 ) Functional Activities, Ea 15 (04/08/18 ) Bethanechol Tablet (Urecholine Tablet) (04/08/18 21:00) Nursing Communication (Order) (04/08/18 20:04) Basic Metabolic Panel (04/10/18 05:00) Patient Visit (04/08/18 ) Functional Activities, Ea 15 (04/08/18 ) Patient Visit (04/09/18 ) Functional Activities, Ea 15 (04/09/18 ) Exercise Therap, Ea 15 Min (04/09/18 ) Therapeutic, Group (04/09/18 ) Mat Initiate Protocol (04/10/18 00:10) Mat Initiate Protocol (04/10/18 00:10) Hydromorphone Injection (Dilaudid Inject (04/10/18 08:30) Hydrocodone/Apap 10/325 Tablet (Lortab 1 (04/10/18 08:30) Cbc No Diff (04/11/18 05:00) Comprehensive Metabolic Panel (04/11/18 05:00) Carvedilol Tablet (Coreg Tablet) (04/10/18 09:00) Ns Iv 1000 Ml (Sodium Chloride 0.9%) (04/10/18 08:45) Basic Metabolic Panel (04/11/18 05:00) Magnesium (04/11/18 05:00) Rehab Nursing Orders: Ongoing Assess. of Function Status, Bladder Training, Bowel Management, Disease Management & Educaiton, Fluid/Electrolyte/Nutrition Mgmt, Infection Prevention, Nutrition Management, Pain Management, Safety Management Intensity of Therapy to be met Patient to be seen: Min.3h per day/5 of 7d PT IPOC Problem List: Activity Tolerance, Functional Strength, Safety, Balance, Gait Treatment Plan: Continue Plan of Care Bed Mobility, Education, Functional Activity Vickie, Functional Strength, Group Therapy, Gait, Safety, Therapeutic Exercise, Transfers Treatment Duration: Apr 30, 2018 Frequency: At least 5 of 7 days/Wk (IRF) Estimated Hrs Per Day: 1.5 hours per day OT IPOC Problems: Decreased Activ Tolerance, Decreased Safety Aware, Decreased UE Strength, Dependent Transfers, Impaired Bed Mobility, Impaired Funct Balance, Impaired Self-Care Skills OT Treatment, Training and Edu: Yes Plan of Care: ADL Retraining, Cognitive Retraining, Functional Mobility, Group Exercise/Act as Ind, UE Funct Exercise/Act Treatment Duration: May 05, 2018 Frequency: At least 5 of 7 days/Wk (IRF) Estimated Hrs Per Day: 1.[address] IPOC Speech Therapy Treatment Plan: Discontinue ST, Goals Met Treatment Duration: Apr 07, 2018 Frequency: 1 time per week Estimated Hrs Per Day: .25 hour per day Dietitian/Parts Expediter Dietitian/Parts Expediter to monitor nutritional status and make changes and/or recommendations as needed and work with speech pathology on dietary upgrades as the occur. Physician IPOC Medical Issues being managed closely and that require the 24 hour availability of a physician: Assessment: Infected left foot diabetic ulcer s/p left below the knee amputation by Dr. Chicas POD # 6 Congestive heart failure with elevated BNP Chronic renal failure and not a dialysis candidate due to his refusal if that becomes a necessity Severe peripheral vascular disease failed intervention for revascularization of the lower extremities and failed wound care for 4 years CAD previous bypass surgery Hypertension Hyperlipidemia Smoker Plan: Monitor creatinine DVT prophylaxis Left below the knee amputation rehab training Medical Issues: Bowel/Bladder Function, Falls Precautions, Fluid/Electrolyte/ Nutrition Balance, Infection Protection, Pain Management, Wound Care Brief Synthesis of Preadmission Screen, Post-Admission Evaluation, and Therapy Evaluations: PT working on transfers from wheelchair and ambulating with walker OT Providing ADL support Medical Prognosis: Good Anticipated Length of Stay: 10 days ABIODUN SOLANO DO Apr 10, 2018 09:03
--- NOTE | 2018-04-10 09:03 | PM&R Progress Note ---
Subjective HPI/CC On Admission Date Seen by Provider: Apr 10, 2018 Time Seen by Provider: 08:15 Subjective/Events-last exam Patient not feeling well Creatinine is 3.0 Urination ok now 3 BM's yesterday Phantom pain Checked meds and labs Dilaudid will be decreased Patient appears to be pale today and drowsy Review of Systems General: Fatigue Gastrointestinal: Nausea Musculoskeletal: leg pain Objective Exam Vital Signs Vital Signs Date Time Temp Pulse Resp B/P (MAP) Pulse Ox O2 Delivery O2 Flow Rate FiO2 04/10/18 10:20 51 18 98 Room Air 04/10/18 09:53 96.5 116/75 (89) 04/10/18 00:04 21 Capillary Refill : General Appearance: No Apparent Distress, WD/WN, Chronically ill, Other (pale, fatigued) Respiratory: Chest Non Tender, Lungs Clear, Normal Breath Sounds, No Accessory Muscle Use, No Respiratory Distress Cardiovascular: Regular Rate, Rhythm, No Edema, No Gallop, No JVD, No Murmur, Normal Peripheral Pulses Neurologic/Psychiatric: Alert, Oriented x3, No Motor/Sensory Deficits, Normal Mood/Affect Skin: Normal Color, Warm/Dry Results/Procedures Lab Laboratory Tests 04/10/18 04:58 Patient resulted labs reviewed. Assessment/Plan Assessment and Plan Assess & Plan/Chief Complaint Assessment: Infected left foot diabetic ulcer s/p left below the knee amputation by Dr. Chicas POD # 6 Congestive heart failure with elevated BNP Chronic renal failure and not a dialysis candidate due to his refusal if that becomes a necessity Severe peripheral vascular disease failed intervention for revascularization of the lower extremities and failed wound care for 4 years CAD previous bypass surgery Hypertension Hyperlipidemia Smoker Plan: Monitor creatinine DVT prophylaxis Left below the knee amputation rehab training Monitor BP Decrease Dilaudid Increase Hydrocodone to 10mg Q4hrs Diagnosis/Problems Diagnosis/Problems (1) Amput below knee, unilat Status: Acute (2) CKD (chronic kidney disease) stage 3, GFR 30-59 ml/min Status: Chronic (3) Anemia in chronic kidney disease Status: Chronic (4) Ischemic cardiomyopathy Status: Chronic (5) Essential (primary) hypertension Status: Chronic (6) PVD (peripheral vascular disease) Status: Chronic (7) Dyspnea Status: Acute Qualifiers: Dyspnea type: unspecified Qualified Codes: R06.00 - Dyspnea, unspecified (8) Urinary retention Status: Acute (9) Insulin dependent diabetes mellitus Status: Chronic Clinical Quality Measures Admission Status Admission Dx Assessment: Infected left foot diabetic ulcer s/p left below the knee amputation by Dr. Chicas POD # 4 Congestive heart failure with elevated BNP Chronic renal failure and not a dialysis candidate due to his refusal if that becomes a necessity Severe peripheral vascular disease failed intervention for revascularization of the lower extremities and failed wound care for 4 years CAD previous bypass surgery Hypertension Hyperlipidemia Smoker Plan: Monitor creatinine DVT prophylaxis Left below the knee amputation rehab training DVT/VTE Risk/Contraindication: Risk Factor Score Per Nursin RFS Level Per Nursing on Admit: 4+=Very High ABIODUN SOLANO DO Apr 10, 2018 09:03
[2018-04-10 09:53] VITALS: BP 116/75
--- NOTE | 2018-04-10 09:57 | Occupational Ther Daily Note ---
OT Current Status-Daily Note Subjective Pt stated that , ' I am very very cold today., wrap me with warm blanket. Pt refused for shower . " Pain Numeric Pain Scale: 5-Moderate Pain Location: Right, Left Location Body Site: Generalized Pain Description: Ache, Dull Mental Status/Objective Patient Orientation: Person, Place, Time Therapy Code Descriptions/Definitions Functional [place] Measure: 0=Not Assessed/NA 4=Minimal Assistance 1=Total Assistance 5=Supervision or Setup 2=Maximal Assistance 6=Modified [place] 3=Moderate Assistance 7=Complete [place] ADL-Treatment Pt participated in bedside warm wipes spongue bath, func transfer from bed to w /c with transfer board with min A .Pt very weak today. Not very interested in performing activities. Anvik his hairs & bran with set up . Supine to sit with min A.. Pt participated in trunk balancing exercises with ball catch/throw activity ,Hand gripper ex to strengthen hand retort pre cooker, strengthening ex to BUE 25 reps x 2 sets x 3 lb wts both elbows & shoulders, 30 reps with red theraband in all planes of motion . Therapy Code Descriptions/Definitions Functional [place] Measure: 0=Not Assessed/NA 4=Minimal Assistance 1=Total Assistance 5=Supervision or Setup 2=Maximal Assistance 6=Modified [place] 3=Moderate Assistance 7=Complete [place] Therapy Quality Codes: 6 Independent with activity with or without an assistive device 5 Patient requires set up or clean up by helper. Patient completes activity by themselves 4 Supervision or touching assist (CGA). Hope provide cues , steadying assist 3 The helper provides less than half the effort to complete the activity 2 The helper provides more than half the effort to complete the activity 1 Dependent. The helper does all the effort to complete an activity 7 Patient refused to complete or attempt activity 9 The patient did not perform the activity before the current illness or injury 88 Not attempted due to Medical conditions or safety concerns Eating (FIM): 7 Eating (QC): 6 Grooming (FIM): 5 Oral Hygiene (QC): 5 Bathing (FIM): 0 Shower/Bathe Self (QC): 4 (pt spongue bath in bed with min A. Refused for shower becauce of cold .) Upper Body (FIM): 4 Upper Body Dressing (QC): 4 Lower Body Dressing (FIM): 4 Lower Body Dressing (QC): 4 Transfers (B, C, W/C) (FIM): 4 Toilet/Commode Transfer (FIM): 4 Toilet Transfer (QC): 4 Tub Transfer(FIM): 0 Shower Transfer(FIM): 0 Education OT Patient Education: Correct positioning, Safety issues, Transfer techniques, W/C management Teaching Recipient: Patient Teaching Methods: Demonstration, Discussion Response to Teaching: Verbalize Understanding, Return Demonstration OT Short Term Goals Short Term Goals Time Frame: Apr 21, 2018 Eating(FIM): 7 Grooming(FIM): 7 Bathing(FIM): 5 Bathing Location: L Arm, R Arm, L Upper Leg, R Upper Leg, L Lower Leg ( including foot), R Lower Leg (including foot), Chest, Abdomen, Buttocks, Perineal Area Upper Body Dressing(FIM): 7 Lower Body Dressing(FIM): 4 Toileting(FIM): 4 (with transfer bench) Transfers (B,C,W/C) (FIM): 5 Toilet/Commode Transfer(FIM): 4 Additional Short Term Goals: 1-Demonstrate ADL Tasks, 2-Verbalize Understanding , 3-ImproveStrength/Vickie 1=Demonstrate adherence to instructed precautions during ADL tasks. 2=Patient will verbalize/demonstrate understanding of assistive devices/ modifications for ADL. 3=Patient will improve strength/tolerance for activity to enable patient to perform ADL's. OT Gas Turbine Powerplant Mechanic Helper Goals Gas Turbine Powerplant Mechanic Helper Goals Time Frame: May 05, 2018 Eating (FIM): 7 Eating (QC): 6 Groomin Oral Hygiene (QC): 6 Bathing(FIM): 6 Bathing Location: L Arm, R Arm, L Upper Leg, R Upper Leg, L Lower Leg ( including foot), R Lower Leg (including foot), Chest, Abdomen, Buttocks, Perineal Area Shower/Bathe Self (QC): 6 Upper Body Dressing(FIM): 7 Upper Body Dressing (QC): 6 Lower Body Dressing(FIM): 5 Lower Body Dressing (QC): 5 Toileting Hygiene (QC): 6 Transfers (B,C,W/C) (FIM): 5 Toilet/Commode Transfer(FIM): 6 Toilet/Commode Transfer (QC): 5 Shower Transfer(FIM): 6 Additional Goals: 1-Demonstrate ADL Tasks, 2-Verbalize Understanding, 3- ImproveStrength/Vickie 1=Demonstrate adherence to instructed precautions during ADL tasks. 2=Patient will verbalize/demonstrate understanding of assistive devices/ modifications for ADL. 3=Patient will improve strength/tolerance for activity to enable patient to perform ADL's. OT Education/Plan Problem List/Assessment Assessment: Decreased Activ Tolerance, Decreased Safety Aware, Decreased UE Strength, Dependent Transfers, Impaired Bed Mobility, Impaired Funct Balance, Impaired Self-Care Skills Discharge Recommendations Plan/Recommendations: Continue POC Therapy D/C Recommendations: Home Independently, Occupational Therapy Home Care Equpiment Recommendations-D/C: Bath Chair, Extended Shower Sprayer, Social Service Coordinator Barriers to Progress Left BKA Patient/Family Goals To return home Independently with AD. Treatment Plan/Plan of Care Treatment,Training & Education: Yes Patient would benefit from OT for education, treatment and training to promote independence in ADL's, mobility, safety and/or upper extremity function for ADL' s. Plan of Care: ADL Retraining, Cognitive Retraining, Functional Mobility, Group Exercise/Act as Ind, UE Funct Exercise/Act Treatment Duration: May 05, 2018 Frequency: At least 5 of 7 days/Wk (IRF) Estimated Hrs Per Day: 1.5 hours per day Agreement: Yes Rehab Potential: Good Time/GCodes Start Time: 08:15 Stop Time: 09:45 Total Time Billed (hr/min): 90 Billed Treatment Time 1, ADLS 45 min & Ex 45 min . Total 90 min GITA GASPAR OT Apr 10, 2018 09:57
[2018-04-10] MEDS: ENOXAPARIN 40 MG/0.4 ML (LOVENOX) SYR SC SCH (10:10)
--- NOTE | 2018-04-10 10:22 | NUR ---
Pt refused scheduled AM po meds, c/o nausea, Zofran given, see MAR, IVF started as ordered.
--- NOTE | 2018-04-10 10:39 | Physical Therapy Progress Note ---
Therapy Progress Note Patient is ill this morning. Nurse is in room when PT goes into get patient. She is giving him nausea medication. Patient states he vomited a couple of times last night and is still nauseated. He also has a HR in the 40's this morning. Patient is nauseated and lethargic and doesn't think he can participate in PT. Doctor will be notified. ALEJANDRA DEVINE PT Apr 10, 2018 10:39
--- NOTE | 2018-04-10 11:21 | Progress Note-Urology ---
Progress Note-Urology Progress Notes/Assess & Plan Progress/Assessment & Plan PVR YESTERDAY 300C. CONTINUE SAME Final Diagnosis URINE RETENTION ANGELY MEEHAN MD Apr 10, 2018 11:21
--- NOTE | 2018-04-10 11:27 | Physical Therapy Daily Note ---
PT Daily Note-Current Subjective Attempted to try PT with patient. He is in bed pre tx, mumbles incoherently, cannot answer questions or follow directions consistently. Appearance Patient in bed post tx with nurse call,phone, tray, bed alarm on. Mental Status Patient Orientation: Confused, Unable to Assess, Mumbles Attachments: IV Transfers Therapy Code Descriptions/Definitions Functional [place] Measure: 0=Not Assessed/NA 4=Minimal Assistance 1=Total Assistance 5=Supervision or Setup 2=Maximal Assistance 6=Modified [place] 3=Moderate Assistance 7=Complete [place] Therapy Quality Codes: 6 Independent with activity with or without an assistive device 5 Patient requires set up or clean up by helper. Patient completes activity by themselves 4 Supervision or touching assist (CGA). [place] provide cues , steadying assist 3 The helper provides less than half the effort to complete the activity 2 The helper provides more than half the effort to complete the activity 1 Dependent. The helper does all the effort to complete an activity 7 Patient refused to complete or attempt activity 9 The patient did not perform the activity before the current illness or injury 88 Not attempted due to Medical conditions or safety concerns Weight Bearing Right Lower Extremity: Right Weight Bearing/Tolerated Left Lower Extremity: Left (BKA) Exercises Supine Ex: Short Arc Quads, Straight leg raise Supine Reps: 15 bilateral lower extremity ROM and stretching in all planes, except for left leg , left knee soft stretching in to flexion and extension due to recent amputation and pain. Treatments AROM, PROM, stretching Assessment Current Status: Poor Progress Patient mumbles incoherently, confused, lethargic, can't stay awake. Patient can perform one or two reps of exercises before stopping and needing cues to continue. Patient confused and talking about spotlighting deer and tacos and birthdays. PT Short Term Goals Short Term Goals Time Frame: Apr 14, 2018 Transfers (B,C,W/C) (FIM): 5 Gait (FIM): 2 Distance (FIM): 7=374-25 ft Gait Distance Comment: 25 Gait Level of Assist: 4 Gait Assistive Device: FWW Wheelchair (FIM): 5 Wheelchair distance (FIM): 3=150 ft Wheelchair Distance: 'x2 PT Plate Keeper Goals Plate Keeper Goals PT Plate Keeper Goals Time Frame: Apr 30, 2018 Transfers (B,C,W/C) (FIM): 6 Sit to Lying (QC): 6 Lying-Sitting on Side/Bed(QC): 6 Sit to Stand (QC): 6 Rollin Roll Left to Right (QC): 6 Chair/Drb-sw-Dxmzv Xfer(QC): 6 Car Transfer (QC): 5 Does the Patient Walk: No and Walking Goal IS indicated Gait (FIM): 2 Gait distance (FIM): 6=238-48 ft Distance: 25 ft Walk 10 feet (QC): 6 Walk 10ft-Uneven Surface(QC): 6 Walk 50ft with 2 Turns (QC): 88 Walk 150 ft (QC): 88 Gait Level of Assist: 6 Gait Assistive Device: FWW Does the Pt use WC or Scooter?: Yes Wheelchair (FIM): 6 Wheelchair distance (FIM): 3=150 ft Wheel 50 feet with 2 turns (QC: 6 Stairs (FIM): 5 (household; modified scooting on his buttock) # of Steps: 4 1 Step (curb) (QC): 6 4 Steps (QC): 6 12 Steps (QC): 88 Picking up an Object (QC): 6 (with a jet man) PT Plan Problem List Problem List: Activity Tolerance, Functional Strength, Safety, Balance, Gait, Transfer, Bed Mobility, ROM Treatment/Plan Treatment Plan: Continue Plan of Care Treatment Plan: Bed Mobility, Education, Functional Activity Vickie, Functional Strength, Group Therapy, Gait, Safety, Therapeutic Exercise, Transfers Treatment Duration: Apr 30, 2018 Frequency: At least 5 of 7 days/Wk (IRF) Estimated Hrs Per Day: 1.5 hours per day Patient and/or Family Agrees t: Yes Safety Risks/Education Patient Education: Correct Positioning, Safety Issues Teaching Recipient: Patient Teaching Methods: Demonstration, Discussion Response to Teaching: Reinforcement Needed left residual limb placed on pillow to encourage knee extension Time/GCodes Time In: 1100 Time Out: 1130 Total Billed Treatment Time: 30 Total Billed Treatment 1 visit EX 30' ALEJANDRA DEVINE PT Apr 10, 2018 11:27
[2018-04-10] MEDS: ISOSORBIDE MONONITRATE 30 MG (IMDUR) TAB PO SCH (12:43)
[2018-04-10] MEDS: CARVEDILOL 3.125 MG (COREG) TABLET PO SCH ×2 (12:43→21:06)
[2018-04-10] MEDS: AMIODARONE 200 MG (CORDARONE) TAB PO SCH (12:43)
[2018-04-10] MEDS: HYDROcodone/APAP 10 MG/325 MG (LORTAB) TAB PO PRN ×2 (14:05→21:06)
--- NOTE | 2018-04-10 14:48 | Physical Therapy Daily Note ---
PT Daily Note-Current Subjective Reports he is tired and wants to stay in bed but agrees to PT after encouragement. Pain Numeric Pain Scale: 8 Location: Left Location Body Site: Calf (stump) Pain Description: Ache (throb) Mental Status Patient Orientation: Person, Place, Time, Situation Transfers Therapy Code Descriptions/Definitions Functional [place] Measure: 0=Not Assessed/NA 4=Minimal Assistance 1=Total Assistance 5=Supervision or Setup 2=Maximal Assistance 6=Modified [place] 3=Moderate Assistance 7=Complete [place] Therapy Quality Codes: 6 Independent with activity with or without an assistive device 5 Patient requires set up or clean up by helper. Patient completes activity by themselves 4 Supervision or touching assist (CGA). [place] provide cues , steadying assist 3 The helper provides less than half the effort to complete the activity 2 The helper provides more than half the effort to complete the activity 1 Dependent. The helper does all the effort to complete an activity 7 Patient refused to complete or attempt activity 9 The patient did not perform the activity before the current illness or injury 88 Not attempted due to Medical conditions or safety concerns Transfers (B, C, W/C) (FIM): 4 Supine to/from Sit: 5 Chair/Ybo-bi-Ivgpy Xfer(QC): 4 (CGA for safety with skilled cues for safe techniques; educated pt to ask for help during all transfers. ) Weight Bearing Right Lower Extremity: Right Weight Bearing/Tolerated Left Lower Extremity: Left (BKA) Wheelchair Training Does the Pt Use a Wheelchair?: Yes Wheelchair (FIM): 5 Wheelchair Distance: 3=150 ft Distance: 200 ft x 2 Wheelchair Level of Assist: 5 Type of Wheelchair: Manual Treatments B LE ther ex for AP right, LAQ, hip flexion and hip abduction. In bed post treatment with needs met. Assessment Pt takes extra time to complete all transfers and with wheelchair mobility. PT Short Term Goals Short Term Goals Time Frame: Apr 14, 2018 Transfers (B,C,W/C) (FIM): 5 Gait (FIM): 2 Distance (FIM): 1=434-41 ft Gait Distance Comment: 25 Gait Level of Assist: 4 Gait Assistive Device: FWW Wheelchair (FIM): 5 Wheelchair distance (FIM): 3=150 ft Wheelchair Distance: 'x2 PT Platform Builder Goals Platform Builder Goals PT Mcc Goals Time Frame: Apr 30, 2018 Transfers (B,C,W/C) (FIM): 6 Sit to Lying (QC): 6 Lying-Sitting on Side/Bed(QC): 6 Sit to Stand (QC): 6 Rollin Roll Left to Right (QC): 6 Chair/Xxb-vz-Njlac Xfer(QC): 6 Car Transfer (QC): 5 Does the Patient Walk: No and Walking Goal IS indicated Gait (FIM): 2 Gait distance (FIM): 8=547-34 ft Distance: 25 ft Walk 10 feet (QC): 6 Walk 10ft-Uneven Surface(QC): 6 Walk 50ft with 2 Turns (QC): 88 Walk 150 ft (QC): 88 Gait Level of Assist: 6 Gait Assistive Device: FWW Does the Pt use WC or Scooter?: Yes Wheelchair (FIM): 6 Wheelchair distance (FIM): 3=150 ft Wheel 50 feet with 2 turns (QC: 6 Stairs (FIM): 5 (household; modified scooting on his buttock) # of Steps: 4 1 Step (curb) (QC): 6 4 Steps (QC): 6 12 Steps (QC): 88 Picking up an Object (QC): 6 (with a marine electrician helper) PT Plan Problem List Problem List: Activity Tolerance, Functional Strength, Safety, Balance, Gait, Transfer, Bed Mobility Treatment/Plan Treatment Plan: Continue Plan of Care Treatment Plan: Bed Mobility, Education, Functional Activity Vickie, Functional Strength, Group Therapy, Gait, Safety, Therapeutic Exercise, Transfers Treatment Duration: Apr 30, 2018 Frequency: At least 5 of 7 days/Wk (IRF) Estimated Hrs Per Day: 1.5 hours per day Patient and/or Family Agrees t: Yes Safety Risks/Education Patient Education: Safety Issues Teaching Recipient: Patient Teaching Methods: Discussion Response to Teaching: Reinforcement Needed Time/GCodes Time In: 1330 Time Out: 1430 Total Billed Treatment Time: 60 Total Billed Treatment visit FA 45 EX 15 MOHAN HAGAN PT Apr 10, 2018 14:48
[2018-04-10 16:02] VITALS: BP 123/70
--- NOTE | 2018-04-10 17:22 | Progress Note ---
Subjective Date Seen by a Provider: Apr 10, 2018 Time Seen by a Provider: 17:16 Subjective/Events-last exam patient states not feeling too hot today. He started having some diarrhea. Having some difficulty getting to the toilet. Patient states coffee burn to the left knee still slightly tender. He is having still pain to the left lower extremity which is somewhat controlled he states. Denies any other complaints. Denies nausea vomiting fever sweats chills shortness of breath or chest pain. Objective Exam Vital Signs Date Time Temp Pulse Resp B/P (MAP) Pulse Ox O2 Delivery O2 Flow Rate FiO2 04/10/18 16:02 97.5 50 16 123/70 (87) 98 Room Air 04/10/18 11:51 68 18 98 Room Air 04/10/18 10:20 51 18 98 Room Air 04/10/18 09:55 51 99 Room Air 04/10/18 09:53 96.5 48 18 116/75 (89) 97 Room Air 04/10/18 08:24 Room Air 04/10/18 06:28 98 Room Air 04/10/18 05:34 98.0 48 16 99/61 (74) 97 Room Air 04/10/18 00:04 80 97 21 04/09/18 20:00 Room Air 04/09/18 19:00 97.1 50 20 133/79 (97) 99 Room Air I & O 04/10/18 07:00 Intake Total 950 ml Output Total 650 ml Balance 300 ml Capillary Refill : General Appearance: No Apparent Distress, WD/WN, Chronically ill, Other (pale) HEENT: PERRL/EOMI, Normal ENT Inspection Neck: Full Range of Motion, Normal Inspection, Non Tender, Supple, Carotid Bruit Respiratory: Chest Non Tender, No Accessory Muscle Use, No Respiratory Distress Cardiovascular: Regular Rate, Rhythm Gastrointestinal: non tender, soft Extremity: Normal Capillary Refill, Normal Inspection, Normal Range of Motion, No Calf Tenderness, No Pedal Edema, Other (left bka at knee superficial burn, distal anterior stump with some slight erythema think from compression stocking) Neurologic/Psychiatric: Alert, Oriented x3, No Motor/Sensory Deficits, Normal Mood/Affect Skin: Normal Color, Warm/Dry Lymphatic: No Adenopathy Results Lab Laboratory Tests 04/09/18 20:12: Glucometer 233H 04/10/18 04:57: Glucometer 113H 04/10/18 04:58: Sodium Level 132L, Potassium Level 4.4, Chloride Level 102, Carbon Dioxide Level 21, Anion Gap 9, Blood Urea Nitrogen 49H, Creatinine 3.05H, Estimat Glomerular Filtration Rate 21, BUN/Creatinine Ratio 16, Glucose Level 102, Calcium Level 8.3L 04/10/18 11:51: Glucometer 137H 04/10/18 15:58: Glucometer 195H Assessment/Plan Assessment/Plan Assessment/Plan s/p left bka dressing change daily pain control. labs in am watch stump feel erythema likely from compression stocking, superficial burn left knee from coffee will continue to monitor Clinical Quality Measures DVT/VTE Risk/Contraindication: Risk Factor Score Per Nursin RFS Level Per Nursing on Admit: 4+=Very High LEIGH ANN FUCHS DO Apr 10, 2018 17:22
[2018-04-10] MEDS: ATORVASTATIN 80 MG (LIPITOR) TABLET PO SCH (21:06)
[2018-04-10] MEDS: MELATONIN 3 MG TABLET PO PRN (21:06)
[2018-04-10] MEDS: ALPRAZolam 0.25 MG (XANAX) TAB PO PRN (21:06)
[2018-04-10] MEDS: POLYETHYLENE GLYCOL 17 GM (MIRALAX) PACK PO SCH (21:07)
[2018-04-11] MEDS: HYDROcodone/APAP 10 MG/325 MG (LORTAB) TAB PO PRN ×3 (03:20→21:48)
[2018-04-11 05:31] LABS: HEMOGLOBIN 10.8 G/DL (13.3-17.7); MEAN PLATELET VOLUME 11.6 FL (7.4-10.4); RED CELL DISTRIBUTION WIDTH 17.7 % (10.0-14.5); WHITE BLOOD COUNT 8.1 10^3/uL (4.3-11.0)
[2018-04-11 05:49] LABS: ALBUMIN 2.4 GM/DL (3.2-4.5); BILIRUBIN,TOTAL 0.7 MG/DL (0.1-1.0); CALCIUM 8.2 MG/DL (8.5-10.1); CREATININE SERUM 3.16 MG/DL (0.60-1.30); MAGNESIUM 1.9 MG/DL (1.8-2.4); POTASSIUM 4.2 MMOL/L (3.6-5.0); TOTAL PROTEIN 5.6 GM/DL (6.4-8.2)
[2018-04-11] MEDS: inSUlin ASPART (NovoLOG) 1 UNIT/0.01 ML (CHARGE PER UNIT) SC SCH ×4 (05:51→21:45)
[2018-04-11 06:00] VITALS: BP 106/66
[2018-04-11] MEDS: BETHANECHOL 25 MG (URECHOLINE) TAB PO SCH ×4 (06:20→21:45)
[2018-04-11] MEDS: LEVOTHYROXINE 100 MCG (LEVOTHROID) TAB PO SCH (06:20)
[2018-04-11] MEDS: RT-ALBUTEROL/IPRATROPIUM 3 ML (DUONEB) VIAL INH SCH ×2 (06:41→19:51)
[2018-04-11] MEDS: ISOSORBIDE MONONITRATE 30 MG (IMDUR) TAB PO SCH (08:09)
[2018-04-11] MEDS: CARVEDILOL 3.125 MG (COREG) TABLET PO SCH ×2 (09:00→21:45)
--- NOTE | 2018-04-11 09:08 | Occupational Ther Daily Note ---
OT Current Status-Daily Note Subjective Pt stated, " I am doing great today, I am warm ,not cold like yesterday & I am feeeling good." Pain Numeric Pain Scale: 5-Moderate Pain Location Body Site: Generalized Pain Description: Ache, Heavy Mental Status/Objective Patient Orientation: Person, Place, Time Therapy Code Descriptions/Definitions Functional [place] Measure: 0=Not Assessed/NA 4=Minimal Assistance 1=Total Assistance 5=Supervision or Setup 2=Maximal Assistance 6=Modified [place] 3=Moderate Assistance 7=Complete [place] ADL-Treatment Therapy Code Descriptions/Definitions Functional [place] Measure: 0=Not Assessed/NA 4=Minimal Assistance 1=Total Assistance 5=Supervision or Setup 2=Maximal Assistance 6=Modified [place] 3=Moderate Assistance 7=Complete [place] Therapy Quality Codes: 6 Independent with activity with or without an assistive device 5 Patient requires set up or clean up by helper. Patient completes activity by themselves 4 Supervision or touching assist (CGA). [place] provide cues , steadying assist 3 The helper provides less than half the effort to complete the activity 2 The helper provides more than half the effort to complete the activity 1 Dependent. The helper does all the effort to complete an activity 7 Patient refused to complete or attempt activity 9 The patient did not perform the activity before the current illness or injury 88 Not attempted due to Medical conditions or safety concerns Upper Body (FIM): 6 Upper Body Dressing (QC): 6 Lower Body Dressing (FIM): 4 Lower Body Dressing (QC): 4 Transfers (B, C, W/C) (FIM): 5 Toilet/Commode Transfer (FIM): 5 Toilet Transfer (QC): 5 Education OT Patient Education: Correct positioning, Exercise program, Safety issues, Transfer techniques Teaching Recipient: Patient Teaching Methods: Demonstration, Discussion Response to Teaching: Verbalize Understanding, Return Demonstration OT Short Term Goals Short Term Goals Time Frame: Apr 21, 2018 Eating(FIM): 7 Grooming(FIM): 7 Bathing(FIM): 5 Bathing Location: L Arm, R Arm, L Upper Leg, R Upper Leg, L Lower Leg ( including foot), R Lower Leg (including foot), Chest, Abdomen, Buttocks, Perineal Area Upper Body Dressing(FIM): 7 Lower Body Dressing(FIM): 4 Toileting(FIM): 4 (with transfer bench) Transfers (B,C,W/C) (FIM): 5 Toilet/Commode Transfer(FIM): 4 Additional Short Term Goals: 1-Demonstrate ADL Tasks, 2-Verbalize Understanding , 3-ImproveStrength/Vickie 1=Demonstrate adherence to instructed precautions during ADL tasks. 2=Patient will verbalize/demonstrate understanding of assistive devices/ modifications for ADL. 3=Patient will improve strength/tolerance for activity to enable patient to perform ADL's. OT Dancing Teacher Goals Dancing Teacher Goals Time Frame: May 05, 2018 Eating (FIM): 7 Eating (QC): 6 Groomin Oral Hygiene (QC): 6 Bathing(FIM): 6 Bathing Location: L Arm, R Arm, L Upper Leg, R Upper Leg, L Lower Leg ( including foot), R Lower Leg (including foot), Chest, Abdomen, Buttocks, Perineal Area Shower/Bathe Self (QC): 6 Upper Body Dressing(FIM): 7 Upper Body Dressing (QC): 6 Lower Body Dressing(FIM): 5 Lower Body Dressing (QC): 5 Toileting Hygiene (QC): 6 Transfers (B,C,W/C) (FIM): 5 Toilet/Commode Transfer(FIM): 6 Toilet/Commode Transfer (QC): 5 Shower Transfer(FIM): 6 Additional Goals: 1-Demonstrate ADL Tasks, 2-Verbalize Understanding, 3- ImproveStrength/Vickie 1=Demonstrate adherence to instructed precautions during ADL tasks. 2=Patient will verbalize/demonstrate understanding of assistive devices/ modifications for ADL. 3=Patient will improve strength/tolerance for activity to enable patient to perform ADL's. OT Education/Plan Problem List/Assessment Assessment: Decreased Activ Tolerance, Decreased Safety Aware, Decreased UE Strength, Dependent Transfers, Impaired Bed Mobility, Impaired Funct Balance, Impaired Self-Care Skills Discharge Recommendations Plan/Recommendations: Continue POC Therapy D/C Recommendations: Home Independently, Occupational Therapy Home Care Equpiment Recommendations-D/C: Extended Shower Sprayer, Senior Database Engineer Barriers to Progress Left BKA Patient/Family Goals To return home Independently. Treatment Plan/Plan of Care Treatment,Training & Education: Yes Patient would benefit from OT for education, treatment and training to promote independence in ADL's, mobility, safety and/or upper extremity function for ADL' s. Plan of Care: ADL Retraining, Cognitive Retraining, Functional Mobility, Group Exercise/Act as Ind, UE Funct Exercise/Act Treatment Duration: May 05, 2018 Frequency: At least 5 of 7 days/Wk (IRF) Estimated Hrs Per Day: 1.5 hours per day Agreement: Yes Rehab Potential: Good Time/GCodes Start Time: 08:00 Stop Time: 09:00 Total Time Billed (hr/min): 60 Billed Treatment Time 1, ADL X 30 min & Ex x 30 min. Total 60 min GITA GASPAR OT Apr 11, 2018 09:08
--- NOTE | 2018-04-11 09:24 | Progress Note-Urology ---
Progress Note-Urology Progress Notes/Assess & Plan Progress/Assessment & Plan BETTER TODAY. PVR IMPROVING. Final Diagnosis URINE RETENTION ANGELY MEEHAN MD Apr 11, 2018 09:24
--- NOTE | 2018-04-11 09:58 | Progress Note ---
Subjective Date Seen by a Provider: Apr 11, 2018 Time Seen by a Provider: 09:56 Subjective/Events-last exam feeling better this morning. no new complaints. denies n/v fever sweats chills shortness of breath or chest pain. pain fairly controlled left lower extremity. Objective Exam Vital Signs Date Time Temp Pulse Resp B/P (MAP) Pulse Ox O2 Delivery O2 Flow Rate FiO2 04/11/18 06:41 93 Room Air 04/11/18 06:00 97.8 52 18 106/66 (79) 97 Room Air 04/10/18 21:42 95 Room Air 04/10/18 20:00 Room Air 04/10/18 16:02 97.5 50 16 123/70 (87) 98 Room Air 04/10/18 11:51 68 18 98 Room Air 04/10/18 10:20 51 18 98 Room Air I & O 04/11/18 07:00 Intake Total 2700 ml Output Total 750 ml Balance 1950 ml Capillary Refill : General Appearance: No Apparent Distress, WD/WN, Chronically ill HEENT: PERRL/EOMI, Normal ENT Inspection Neck: Full Range of Motion, Normal Inspection, Non Tender, Supple, Carotid Bruit Respiratory: Chest Non Tender, No Accessory Muscle Use, No Respiratory Distress Cardiovascular: Regular Rate, Rhythm Gastrointestinal: non tender, soft Extremity: Normal Capillary Refill, Normal Inspection, Normal Range of Motion, No Calf Tenderness, No Pedal Edema, Other (left bka at knee superficial burn, distal anterior stump with some slight erythema think from compression stocking unchanged from yesterday) Neurologic/Psychiatric: Alert, Oriented x3, No Motor/Sensory Deficits, Normal Mood/Affect Skin: Normal Color, Warm/Dry Lymphatic: No Adenopathy Results Lab Laboratory Tests 04/10/18 11:51: Glucometer 137H 04/10/18 15:58: Glucometer 195H 04/10/18 20:28: Glucometer 212H 04/11/18 05:20: White Blood Count 8.1, Red Blood Count 3.66L, Hemoglobin 10.8L, Hematocrit 33L, Mean Corpuscular Volume 89, Mean Corpuscular Hemoglobin 30, Mean Corpuscular Hemoglobin Concent 33, Red Cell Distribution Width 17.7H, Platelet Count 183, Mean Platelet Volume 11.6H, Sodium Level 131L, Potassium Level 4.2, Chloride Level 101, Carbon Dioxide Level 19L, Anion Gap 11, Blood Urea Nitrogen 53H, Creatinine 3.16H, Estimat Glomerular Filtration Rate 20, BUN/Creatinine Ratio 17 , Glucose Level 107H, Calcium Level 8.2L, Corrected Calcium 9.5, Magnesium Level 1.9, Total Bilirubin 0.7, Aspartate Amino Transf (AST/SGOT) 32, Alanine Aminotransferase (ALT/SGPT) 26, Alkaline Phosphatase 130, Total Protein 5.6L, Albumin 2.4L Assessment/Plan Assessment/Plan Assessment/Plan s/p left bka dressing change daily pain control. watch stump feel erythema likely from compression stocking, superficial burn left knee from coffee will continue to monitor Clinical Quality Measures DVT/VTE Risk/Contraindication: Risk Factor Score Per Nursin RFS Level Per Nursing on Admit: 4+=Very High LEIGH ANN FUCHS DO Apr 11, 2018 09:58
[2018-04-11 10:40] VITALS: BP 135/75
--- NOTE | 2018-04-11 11:06 | Physical Therapy Daily Note ---
PT Daily Note-Current Subjective Patient in bed pre tx, agrees to PT, has pain of 8/10 in left leg. Patient was feeling much better and was able to participate in therapy. Appearance Patient in bed post tx with nurse call, phone, tray, all needs met. Mental Status Patient Orientation: Person, Place, Situation Transfers Therapy Code Descriptions/Definitions Functional [place] Measure: 0=Not Assessed/NA 4=Minimal Assistance 1=Total Assistance 5=Supervision or Setup 2=Maximal Assistance 6=Modified [place] 3=Moderate Assistance 7=Complete [place] Therapy Quality Codes: 6 Independent with activity with or without an assistive device 5 Patient requires set up or clean up by helper. Patient completes activity by themselves 4 Supervision or touching assist (CGA). [place] provide cues , steadying assist 3 The helper provides less than half the effort to complete the activity 2 The helper provides more than half the effort to complete the activity 1 Dependent. The helper does all the effort to complete an activity 7 Patient refused to complete or attempt activity 9 The patient did not perform the activity before the current illness or injury 88 Not attempted due to Medical conditions or safety concerns Transfers (B, C, W/C) (FIM): 5 Scootin Rollin Supine to/from Sit: 5 Bed to/from Chair: 5 Weight Bearing Right Lower Extremity: Right Weight Bearing/Tolerated Left Lower Extremity: Left (BKA) Gait Training Gait (FIM): 1 Distance: 6' Gait Level of Assist: 4 Gait Persons Needed: 1 Gait Assistive Device: Parallel Bars Wheelchair Training Does the Pt Use a Wheelchair?: Yes Wheelchair (FIM): 6 Distance: 150'x2 Type of Wheelchair: Manual Exercises Supine Ex: Quad Set, Glut sets, Heel Slides, Straight leg raise, Hip abd/add Supine Reps: 15 LAQ alternating for 5 min, prone hip stretch for 5 min Treatments bed mobility and transfers, ROM, functional strengthening, ambulation Assessment Current Status: Fair Progress patient was able to ambulate in the parallel bars this morning PT Short Term Goals Short Term Goals Time Frame: Apr 14, 2018 Transfers (B,C,W/C) (FIM): 5 Gait (FIM): 2 Distance (FIM): 4=017-11 ft Gait Distance Comment: 25 Gait Level of Assist: 4 Gait Assistive Device: FWW Wheelchair (FIM): 5 Wheelchair distance (FIM): 3=150 ft Wheelchair Distance: 200 ft x 2 PT Shelter Goals Shelter Goals PT Shelter Goals Time Frame: Apr 30, 2018 Transfers (B,C,W/C) (FIM): 6 Sit to Lying (QC): 6 Lying-Sitting on Side/Bed(QC): 6 Sit to Stand (QC): 6 Rollin Roll Left to Right (QC): 6 Chair/Ewh-hv-Mhsyz Xfer(QC): 6 Car Transfer (QC): 5 Does the Patient Walk: No and Walking Goal IS indicated Gait (FIM): 2 Gait distance (FIM): 9=855-89 ft Distance: 25 ft Walk 10 feet (QC): 6 Walk 10ft-Uneven Surface(QC): 6 Walk 50ft with 2 Turns (QC): 88 Walk 150 ft (QC): 88 Gait Level of Assist: 6 Gait Assistive Device: FWW Does the Pt use WC or Scooter?: Yes Wheelchair (FIM): 6 Wheelchair distance (FIM): 3=150 ft Wheel 50 feet with 2 turns (QC: 6 Stairs (FIM): 5 (household; modified scooting on his buttock) # of Steps: 4 1 Step (curb) (QC): 6 4 Steps (QC): 6 12 Steps (QC): 88 Picking up an Object (QC): 6 (with a natural gas shothole driller) PT Plan Problem List Problem List: Activity Tolerance, Functional Strength, Safety, Balance, Gait, Transfer, Bed Mobility, ROM Treatment/Plan Treatment Plan: Continue Plan of Care Treatment Plan: Bed Mobility, Education, Functional Activity Vickie, Functional Strength, Group Therapy, Gait, Safety, Therapeutic Exercise, Transfers Treatment Duration: Apr 30, 2018 Frequency: At least 5 of 7 days/Wk (IRF) Estimated Hrs Per Day: 1.5 hours per day Patient and/or Family Agrees t: Yes Safety Risks/Education Patient Education: Gait Training, Transfer Techniques, Correct Positioning, W/ C Management, Safety Issues Teaching Recipient: Patient Teaching Methods: Demonstration, Discussion Response to Teaching: Reinforcement Needed Time/GCodes Time In: 0945 Time Out: 1030 Total Billed Treatment Time: 45 Total Billed Treatment 1 visit GT 10' WCH 15' EX 20' ALEJANDRA DEVINE PT Apr 11, 2018 11:06
[2018-04-11] MEDS: ENOXAPARIN 40 MG/0.4 ML (LOVENOX) SYR SC SCH (11:17)
[2018-04-11] MEDS: AMIODARONE 200 MG (CORDARONE) TAB PO SCH (12:59)
--- NOTE | 2018-04-11 13:16 | Cardiology Progress Note ---
Cardiology SOAP Progress Note Subjective: No cardiac complaints. Objective: I&O/Vital Signs 04/12/18 04/12/18 04/12/18 04/12/18 06:00 08:59 09:12 10:28 Temp 97.8 Pulse 56 60 54 Resp 20 B/P (MAP) 117/69 (85) 139/83 (101) Pulse Ox 97 98 95 O2 Delivery Room Air Room Air Room Air 04/12/18 10:28 Pulse Ox 95 O2 Delivery Room Air 04/12/18 00:00 Intake Total 500 ml Output Total 575 ml Balance -75 ml Weight (Pounds): 221 Weight (Ounces): 3.0 Weight (Calculated Kilograms): [id number] Constitutional: No appears stated age; AAO x 3; No apparent distress, No PERRL , No well-developed, No well-nourished, No other Respiratory: No accessory muscle use, No respiratory distress, No chest tender , No chest expansion is symmetric; chest is bilaterally symmetric; No lungs clear to percussion; lungs clear to auscultation; No crackles, No rhonchi, No rales, No stridor, No wheezing, No pleural rub, No other Cardiovascular: regular rate-rhythm; No irregularly irregular, No extra beats, No parasternal heave is noted, No JVD, No edema, No bradycardia, No tachycardia , No point of maximal impulse, No cardiac thrills are palpable; S1 and S2; No gallop/S3, No gallop/S4, No diastolic murmur, No systolic murmur, No friction rub, No click, No other Gastrointestional: No tender, No soft, No round, No distended, No pulsatile mass, No organomegaly, No guarding, No rebound, No tenderness, No hernia, No mass, No audible bowel sounds, No abnormal bowel sounds, No abdominal bruits, No spleenomegaly, No other Extremities: other (left BKA.) Neurologic/Psychiatric: no motor/sensory deficits, alert, normal mood/affect, oriented x 3 Results/Procedures: Labs Laboratory Tests 04/11/18 16:09: Glucometer 196H 04/11/18 20:37: Glucometer 232H 04/12/18 05:47: Glucometer 109 04/12/18 11:19: Glucometer 117H A/P: Assessment/Dx: Admission Diagnosis Peripheral arterial disease Coronary artery disease Hypertension Hyperlipidemia Plan: Assessment/Plan Left BKA done on April 04, 2018 secondary to nonhealing foot ulcer, history of right toes amputation in the past. Extensive peripheral arterial disease as described below. Recovering slowly. Acute on chronic renal failure, has been followed by a tinsmith helper, I will give him 1 L of saline and evaluate tolerance and response, continue to monitor renal function Bradycardia, Coreg held. Amiodarone continue. Coronary artery disease, history of CABG 4 in 2008 with cardiac catheterization June 02, [address] Arvizu revealing severe three-vessel [place] coronary artery disease with non-bypassed RCA, patent OSBORNE to LAD, patent vein graft to first diag, patent vein graft to first OM. There was occluded jump graft to the second obtuse marginal branch with successful PCI using bare-metal vision stent 3.0 x 28 mm to the second OM. At that time was reported patient staged intervention to the right and third OM branch after gallbladder removal by Dr. Arvizu, had stress test done at [facility] within then and no further intervention was made. Patient was to be scheduled for [facility] with intervention after healing of Left foot ulcer, however, patient did not follow up, Cardiac catheterization was carried out by Dr. Busch in January 2015 and reported as patent OSBORNE to the LAD vein graft to the diagonal artery and vein graft to the obtuse marginal artery, small vessel disease distally, the right coronary artery has severe diffuse disease, Dr. Busch felt that it is high risk for intervention at this time, medical therapy is recommended. Patient will require significant amount of stenting with limited benefit. Continue to monitor at this time Significant peripheral arterial disease, multiple intervention by Dr. Beebe in the past. Extensive workup in the past, angiogram was done on May 30, 2016 which showed on the right side subtotal occlusion of the anterior tibial artery , severe disease at the posterior tibial and peroneal artery and distal popliteal artery successful balloon angioplasty to the anterior tibial artery using 2.0 then 3.0 balloon with excellent results, balloon angioplasty to the popliteal artery using Lutonix 4.018 mm with excellent results. On July 02, 2016 patient was noted to have total occlusion of the anterior tibial artery of the left leg with balloon angioplasty using 3x100 balloon with excellent results. Return on July 04, 2016 and underwent intervention on the right lower extremity using Lutonix to the distal SFA 6 time 150 mm with excellent results. Patient has small vessel disease distally. On May 01, 2017 after having a nonhealing wound to the left heel. Was found to have total occlusion of the left anterior tibial artery, complex intervention using multiple wires and balloons with excellent results. Repeat angiogram was done on January 01, 2018 showing total occlusion of the anterior tibial artery with unsuccessful attempt to cross the lesion, I was able to do balloon angioplasty for severe disease of the peroneal artery. Patient still have severe stenosis at the distal SFA. Patient was referred to [facility], underwent angiogram on January 10, 2018 had left SFA angioplasty with drug-coated balloon, atherectomy of the anterior tibial artery with jet stream followed by angioplasty of the anterior tibial artery and peroneal artery with drug-coated balloons, angioplasty to the dorsalis pedis. Unsuccessful posterior tibial artery cannulation. His peripheral arterial disease In the small vessel at the right lower extremity is deemed inoperable at this time. s/p Left BKA Congestive heart failure, ischemic cardiomyopathy, LV systolic dysfunction. Persistent cardiomyopathy with ejection fraction 20-25 percent, last echocardiogram was done in July 2017. History of single-chamber ICD implant for primary prevention. Maintained on beta kathrin. Unable to tolerate NORMAN-I or ARB secondary to renal function. Continue to monitor Paroxysmal atrial fibrillation-patient noted to have episodes of atrial fibrillation on his first ICD interrogation, longest episode up to one hour. continue on current medication including amiodarone and monitor Tobaccoism, reports recently quit smoking. Educated on importance of smoking cessation. History of port placement on the right side, status post retrieval after fractured port in June 2016 Hypertension, continue to monitor blood pressure Hyperlipidemia, was started on Lipitor 80 mg daily. Continue to monitor Diabetes mellitus, followed and monitored by primary care physician. Mild bilateral nonobstructive carotid artery stenosis, last carotid ultrasound was done in December 2017, continue to monitor Thank you for your consultation. Please call me if you have any questions. Jeremy Zaragoza MD, FACP, FACC, FSCAI, FHRS, CCDS Interventional Cardiology Cardiac Electrophysiology Vascular Medicine and Endovascular Interventions Jesus ZARAGOZA MD Apr 11, 2018 1:16 pm
--- NOTE | 2018-04-11 14:49 | Therapy Group Daily Note ---
Therapy Daily Group Note Patient Education Topic Other List Below (memory) Exercises LE Seated Exercise, UE Exercise Other/Notes Pt participated in group therapy with 4 to 1 ratio. Goals of session: Pt will verbalize understanding of memory strategies (met). Lead one UE or LE seated exercise during group therapy (met). Pt propelled w/c to [facility] for OT/PT group. Group consisted on introductions (name, place living, what would you name a cheetah), socialization , pt led UE/LE seated exercises, memory education/strategies and memory activity. Pt introduced self appropriately and actively listened to peers. Pt acknowledged understanding of memory strategies/education by verbalizing personal strategies. Pt was able to lead one exercise without difficulty then complete rest of exercises. During memory activity pt was able to match pictures on turn. Pt will benefit from group by increasing short term memory and use strategies during daily functional tasks. Pt will be able to complete UE/LE seated exercises after discharge. After group, pt propelled w/c back to room and laid in bed. Call light/phone in reach. All needs met in room. Start Time: 13:00 Stop Time: 14:15 Total Billed Treatment Time: 75 Total Billed Treatment 1-GRP MOHAN BEATTY Apr 11, 2018 14:49
[2018-04-11 18:38] VITALS: BP 155/87
[2018-04-11] MEDS: CALCIUM CARBONATE 500 MG (TUMS) TAB.CHEW PO PRN (21:44)
[2018-04-11] MEDS: MELATONIN 3 MG TABLET PO PRN (21:45)
[2018-04-11] MEDS: ALPRAZolam 0.25 MG (XANAX) TAB PO PRN (21:45)
[2018-04-11] MEDS: ATORVASTATIN 80 MG (LIPITOR) TABLET PO SCH (21:45)
[2018-04-11] MEDS: POLYETHYLENE GLYCOL 17 GM (MIRALAX) PACK PO SCH (21:49)
--- NOTE | 2018-04-11 22:04 | PM&R Progress Note ---
Subjective This was a face to face visit with the patient. Date Seen by Provider: Apr 11, 2018 Time Seen by Provider: 09:00 Subjective/Events-last exam Patient was seen in his room Patient doing much better today Nearly discontinued all of Dilaudid and that has helped him tremendously Maintain on Hydrocodone of 10 mg and that seems to be helping with the pain Voiding much better and is helping manage that aspect Bradycardia noted so cardiology will be contacted Overall much improved Review of Systems General: Fatigue Musculoskeletal: leg pain Objective Physician Exam Last Set of Vital Signs Vital Signs Date Time Temp Pulse Resp B/P (MAP) Pulse Ox O2 Delivery O2 Flow Rate FiO2 04/11/18 19:52 96 Room Air 04/11/18 18:38 98.0 60 18 155/87 (109) 04/10/18 00:04 21 Capillary Refill : I&O Intake and Output 04/11/18 00:00 Intake Total 2060 ml Output Total 700 ml Balance 1360 ml Intake Oral 1050 ml IV Total 1010 ml Output Urine Total 700 ml Bladder Scan Volume Amount 291 ml 273 ml 236 ml # Voids 1 # Bowel Movements 6 General: Alert, Oriented X3, Cooperative HEENT: Atraumatic, PERRLA Neck: Supple, No JVD, No Thyromegaly Lungs: Normal Air Movement, Other (rhonchi) Heart: Regular Rate, Normal S1, Normal S2, Other (systolic murmur at the left sternal border) Abdomen: Normal Bowel Sounds, Soft, No Tenderness, No Hepatosplenomegaly, No Masses Extremities: No Clubbing, No Cyanosis, No Edema, No Tenderness/Swelling, Other (BKA) Skin: No Rashes, No Breakdown, No Significant Lesion Neuro: Normal Speech, Normal Tone, Sensation Intact Psych/Mental Status: Mental Status NL, Mood NL Results Lab Data Laboratory Tests 04/09/18 06:26: Glucometer 169H 04/09/18 12:22: Glucometer 170H 04/09/18 15:29: Glucometer 178H 04/09/18 20:12: Glucometer 233H 04/10/18 04:57: Glucometer 113H 04/10/18 04:58: Sodium Level 132L, Potassium Level 4.4, Chloride Level 102, Carbon Dioxide Level 21, Anion Gap 9, Blood Urea Nitrogen 49H, Creatinine 3.05H, Estimat Glomerular Filtration Rate 21, BUN/Creatinine Ratio 16, Glucose Level 102, Calcium Level 8.3L 04/10/18 11:51: Glucometer 137H 04/10/18 15:58: Glucometer 195H 04/10/18 20:28: Glucometer 212H 04/11/18 05:20: White Blood Count 8.1, Red Blood Count 3.66L, Hemoglobin 10.8L, Hematocrit 33L, Mean Corpuscular Volume 89, Mean Corpuscular Hemoglobin 30, Mean Corpuscular Hemoglobin Concent 33, Red Cell Distribution Width 17.7H, Platelet Count 183, Mean Platelet Volume 11.6H, Sodium Level 131L, Potassium Level 4.2, Chloride Level 101, Carbon Dioxide Level 19L, Anion Gap 11, Blood Urea Nitrogen 53H, Creatinine 3.16H, Estimat Glomerular Filtration Rate 20, BUN/Creatinine Ratio 17 , Glucose Level 107H, Calcium Level 8.2L, Corrected Calcium 9.5, Magnesium Level 1.9, Total Bilirubin 0.7, Aspartate Amino Transf (AST/SGOT) 32, Alanine Aminotransferase (ALT/SGPT) 26, Alkaline Phosphatase 130, Total Protein 5.6L, Albumin 2.4L 04/11/18 11:09: Glucometer 151H 04/11/18 16:09: Glucometer 196H 04/11/18 20:37: Glucometer 232H Current Funtional Status Improving rapidly Monitor creatinine Limit Dilaudid Maintain hydrocodone 10 mg Monitor bowel function Appreciate urology Appreciate general surgery regarding dressing changes and wound care Assessment/Plan Assessment and Plan (1) Amput below knee, unilat Status: Acute (2) CKD (chronic kidney disease) stage 3, GFR 30-59 ml/min Status: Chronic (3) Anemia in chronic kidney disease Status: Chronic (4) Ischemic cardiomyopathy Status: Chronic (5) Essential (primary) hypertension Status: Chronic (6) PVD (peripheral vascular disease) Status: Chronic (7) Dyspnea Qualifiers: Qualified Codes: R06.00 - Dyspnea, unspecified Status: Acute (8) Urinary retention Status: Acute (9) Insulin dependent diabetes mellitus Status: Chronic Co-Morbidities that are continuing to impact the rehab process: (include details ) ABIODUN SOLANO DO Apr 11, 2018 22:04
[2018-04-11] MEDS ORDERED: METOCLOPRAMIDE 10 MG (REGLAN) TAB PO PRN (23:45)
[2018-04-12] MEDS: CALCIUM CARBONATE 500 MG (TUMS) TAB.CHEW PO PRN (01:33)
[2018-04-12] MEDS: HYDROcodone/APAP 10 MG/325 MG (LORTAB) TAB PO PRN ×4 (01:34→21:36)
[2018-04-12 06:00] VITALS: BP 117/69
[2018-04-12] MEDS: BETHANECHOL 25 MG (URECHOLINE) TAB PO SCH ×4 (06:06→20:10)
[2018-04-12] MEDS: inSUlin ASPART (NovoLOG) 1 UNIT/0.01 ML (CHARGE PER UNIT) SC SCH ×4 (06:06→20:36)
[2018-04-12] MEDS: LEVOTHYROXINE 100 MCG (LEVOTHROID) TAB PO SCH (06:06)
[2018-04-12 09:12] VITALS: BP 139/83
[2018-04-12] MEDS: AMIODARONE 200 MG (CORDARONE) TAB PO SCH (09:15)
[2018-04-12] MEDS: ISOSORBIDE MONONITRATE 30 MG (IMDUR) TAB PO SCH (09:15)
[2018-04-12] MEDS: CARVEDILOL 3.125 MG (COREG) TABLET PO SCH ×2 (09:15→20:10)
--- NOTE | 2018-04-12 10:15 | Physical Therapy Daily Note ---
PT Daily Note-Current Subjective PT reports he didn't sleep last night but he is willing to do some therapy. Mental Status Patient Orientation: Confused Transfers Therapy Code Descriptions/Definitions Functional [place] Measure: 0=Not Assessed/NA 4=Minimal Assistance 1=Total Assistance 5=Supervision or Setup 2=Maximal Assistance 6=Modified [place] 3=Moderate Assistance 7=Complete [place] Therapy Quality Codes: 6 Independent with activity with or without an assistive device 5 Patient requires set up or clean up by helper. Patient completes activity by themselves 4 Supervision or touching assist (CGA). [place] provide cues , steadying assist 3 The helper provides less than half the effort to complete the activity 2 The helper provides more than half the effort to complete the activity 1 Dependent. The helper does all the effort to complete an activity 7 Patient refused to complete or attempt activity 9 The patient did not perform the activity before the current illness or injury 88 Not attempted due to Medical conditions or safety concerns Weight Bearing Right Lower Extremity: Right Weight Bearing/Tolerated Left Lower Extremity: Left (BKA) Gait Training Gait (FIM): 2 Gait Level of Assist: 4 Gait Assistive Device: Parallel Bars Ambulate in parallel bars 6 ft x 6 trials with verbal cues for safety during turns. Exercises Supine Ex: Bridging, Knee to chest, Short Arc Quads PT Short Term Goals Short Term Goals Time Frame: Apr 14, 2018 Transfers (B,C,W/C) (FIM): 5 Gait (FIM): 2 Distance (FIM): 2=804-64 ft Gait Distance Comment: 25 Gait Level of Assist: 4 Gait Assistive Device: FWW Wheelchair (FIM): 5 Wheelchair distance (FIM): 3=150 ft Wheelchair Distance: 150'x2 PT Senior Living Goals Sample Washer Goals PT Sample Washer Goals Time Frame: Apr 30, 2018 Transfers (B,C,W/C) (FIM): 6 Sit to Lying (QC): 6 Lying-Sitting on Side/Bed(QC): 6 Sit to Stand (QC): 6 Rollin Roll Left to Right (QC): 6 Chair/Fjw-ne-Oqhaw Xfer(QC): 6 Car Transfer (QC): 5 Does the Patient Walk: No and Walking Goal IS indicated Gait (FIM): 2 Gait distance (FIM): 5=648-42 ft Distance: 25 ft Walk 10 feet (QC): 6 Walk 10ft-Uneven Surface(QC): 6 Walk 50ft with 2 Turns (QC): 88 Walk 150 ft (QC): 88 Gait Level of Assist: 6 Gait Assistive Device: FWW Does the Pt use WC or Scooter?: Yes Wheelchair (FIM): 6 Wheelchair distance (FIM): 3=150 ft Wheel 50 feet with 2 turns (QC: 6 Stairs (FIM): 5 (household; modified scooting on his buttock) # of Steps: 4 1 Step (curb) (QC): 6 4 Steps (QC): 6 12 Steps (QC): 88 Picking up an Object (QC): 6 (with a tie hacker) PT Plan Treatment/Plan Treatment Plan: Continue Plan of Care Treatment Plan: Bed Mobility, Education, Functional Activity Vickie, Functional Strength, Group Therapy, Gait, Safety, Therapeutic Exercise, Transfers Treatment Duration: Apr 30, 2018 Frequency: At least 5 of 7 days/Wk (IRF) Estimated Hrs Per Day: 1.5 hours per day Patient and/or Family Agrees t: Yes Time/GCodes Time In: 835 Time Out: 905 Total Billed Treatment Time: 30 Total Billed Treatment visit, gait 15 min, ex 15 min CLIFTON ROMERO PT Apr 12, 2018 10:15
[2018-04-12 10:28] VITALS: BP 139/83
[2018-04-12] MEDS: RT-ALBUTEROL/IPRATROPIUM 3 ML (DUONEB) VIAL INH SCH ×2 (10:28→19:32)
[2018-04-12] MEDS ORDERED: METOCLOPRAMIDE 10 MG (REGLAN) TAB PO PRN (11:00)
[2018-04-12] MEDS: ENOXAPARIN 40 MG/0.4 ML (LOVENOX) SYR SC SCH (11:29)
--- NOTE | 2018-04-12 11:57 | Progress Note (SOAP) ---
Subjective Date Seen by a Provider: Apr 12, 2018 Time Seen by a Provider: 11:10 Subjective/Events-last exam Patient seen with Dr. Ceballos. Patient reports doing ok. Does report discomfort of the left leg stump. No fever/chills. Objective Exam Vital Signs Date Time Temp Pulse Resp B/P (MAP) Pulse Ox O2 Delivery O2 Flow Rate FiO2 04/12/18 10:28 95 Room Air 04/12/18 10:28 54 95 04/12/18 09:12 60 139/83 (101) 98 Room Air 04/12/18 08:59 Room Air 04/12/18 06:00 97.8 56 20 117/69 (85) 97 Room Air 04/11/18 20:00 Room Air 04/11/18 19:52 96 Room Air 04/11/18 18:38 98.0 60 18 155/87 (109) 95 Room Air I & O 04/12/18 07:00 Intake Total 800 ml Output Total 925 ml Balance -125 ml Capillary Refill : General Appearance: No Apparent Distress, WD/WN Neck: Full Range of Motion, Normal Inspection, Non Tender, Supple Respiratory: Lungs Clear, Normal Breath Sounds, No Accessory Muscle Use, No Respiratory Distress Cardiovascular: Regular Rate, Rhythm, No Edema Gastrointestinal: normal bowel sounds, non tender, soft Extremity: Other (Left BKA. Incision C/D/I with no purulent drainage. Mild erythema noted as well as superfical burn on anterior knee.) Neurologic/Psychiatric: Alert, Oriented x3 Skin: Normal Color, Warm/Dry Results Lab Laboratory Tests 04/11/18 16:09: Glucometer 196H 04/11/18 20:37: Glucometer 232H 04/12/18 05:47: Glucometer 109 04/12/18 11:19: Glucometer 117H Assessment/Plan Assessment/Plan Assess & Plan/Chief Complaint s/p left bka dressing change daily pain control. Will start Levaquin 750mg daily. Will continue to monitor stump. Superficial burn left knee, will continue to monitor. Clinical Quality Measures DVT/VTE Risk/Contraindication: Risk Factor Score Per Nursin RFS Level Per Nursing on Admit: 4+=Very High ANTHONY GLORIA SPICE FUMIGATOR Apr 12, 2018 11:57
--- NOTE | 2018-04-12 12:01 | Progress Note-Urology ---
Progress Note-Urology Progress Notes/Assess & Plan Progress/Assessment & Plan CONTINUES SAME. PVR UNDER 300CC. STILL REFUSES STRAIGHT CATH ANGELY MEEHAN MD Apr 12, 2018 12:00
--- NOTE | 2018-04-12 12:13 | NUR ---
Miles Hudson here to see patient for Dr. Ceballos. Assessed left stump incision.
--- NOTE | 2018-04-12 12:30 | NUR ---
Dr. Colon and Dr. Lambert here to see patient.
[2018-04-12] MEDS: LEVOFLOXACIN 750 MG TAB (LEVAQUIN) PO SCH (13:36)
--- NOTE | 2018-04-12 14:06 | Cardiology Progress Note ---
Cardiology SOAP Progress Note Subjective: No cardiac complaints. Objective: I&O/Vital Signs 04/12/18 04/12/18 04/12/18 04/12/18 06:00 08:59 09:12 10:28 Temp 97.8 Pulse 56 60 54 Resp 20 B/P (MAP) 117/69 (85) 139/83 (101) Pulse Ox 97 98 95 O2 Delivery Room Air Room Air Room Air 04/12/18 10:28 Pulse Ox 95 O2 Delivery Room Air 04/12/18 00:00 Intake Total 500 ml Output Total 575 ml Balance -75 ml Weight (Pounds): 222 Weight (Ounces): 4.0 Weight (Calculated Kilograms): 100.307626 Constitutional: No appears stated age; AAO x 3; No apparent distress, No PERRL , No well-developed, No well-nourished, No other Respiratory: No accessory muscle use, No respiratory distress, No chest tender , No chest expansion is symmetric; chest is bilaterally symmetric; No lungs clear to percussion; lungs clear to auscultation; No crackles, No rhonchi, No rales, No stridor, No wheezing, No pleural rub, No other Cardiovascular: regular rate-rhythm; No irregularly irregular, No extra beats, No parasternal heave is noted, No JVD, No edema, No bradycardia, No tachycardia , No point of maximal impulse, No cardiac thrills are palpable; S1 and S2; No gallop/S3, No gallop/S4, No diastolic murmur, No systolic murmur, No friction rub, No click, No other Gastrointestional: No tender, No soft, No round, No distended, No pulsatile mass, No organomegaly, No guarding, No rebound, No tenderness, No hernia, No mass, No audible bowel sounds, No abnormal bowel sounds, No abdominal bruits, No spleenomegaly, No other Extremities: other (left BKA.) Neurologic/Psychiatric: no motor/sensory deficits, alert, normal mood/affect, oriented x 3 Results/Procedures: Labs Laboratory Tests 04/11/18 16:09: Glucometer 196H 04/11/18 20:37: Glucometer 232H 04/12/18 05:47: Glucometer 109 04/12/18 11:19: Glucometer 117H A/P: Assessment/Dx: Admission Diagnosis Peripheral arterial disease Coronary artery disease Hypertension Hyperlipidemia Plan: Assessment/Plan Left BKA done on April 04, 2018 secondary to nonhealing foot ulcer, history of right toes amputation in the past. Extensive peripheral arterial disease as described below. Recovering slowly. 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 Amiodarone continue. Coronary artery disease, history of CABG 4 in 2008 with cardiac catheterization June 02, [address] Arvizu revealing severe three-vessel [place] coronary artery disease with non-bypassed RCA, patent OSBORNE to LAD, patent vein graft to first diag, patent vein graft to first OM. There was occluded jump graft to the second obtuse marginal branch with successful PCI using bare-metal vision stent 3.0 x 28 mm to the second OM. At that time was reported patient staged intervention to the right and third OM branch after gallbladder removal by Dr. Arvizu, had stress test done at [facility] within then and no further intervention was made. Patient was to be scheduled for [facility] with intervention after healing of Left foot ulcer, however, patient did not follow up, Cardiac catheterization was carried out by Dr. Busch in January 2015 and reported as patent OSBORNE to the LAD vein graft to the diagonal artery and vein graft to the obtuse marginal artery, small vessel disease distally, the right coronary artery has severe diffuse disease, Dr. Busch felt that it is high risk for intervention at this time, medical therapy is recommended. Patient will require significant amount of stenting with limited benefit. Continue to monitor at this time Significant peripheral arterial disease, multiple intervention by Dr. Beebe in the past. Extensive workup in the past, angiogram was done on May 30, 2016 which showed on the right side subtotal occlusion of the anterior tibial artery , severe disease at the posterior tibial and peroneal artery and distal popliteal artery successful balloon angioplasty to the anterior tibial artery using 2.0 then 3.0 balloon with excellent results, balloon angioplasty to the popliteal artery using Lutonix 4.018 mm with excellent results. On July 02, 2016 patient was noted to have total occlusion of the anterior tibial artery of the left leg with balloon angioplasty using 3x100 balloon with excellent results. Return on July 04, 2016 and underwent intervention on the right lower extremity using Lutonix to the distal SFA 6 time 150 mm with excellent results. Patient has small vessel disease distally. On May 01, 2017 after having a nonhealing wound to the left heel. Was found to have total occlusion of the left anterior tibial artery, complex intervention using multiple wires and balloons with excellent results. Repeat angiogram was done on January 01, 2018 showing total occlusion of the anterior tibial artery with unsuccessful attempt to cross the lesion, I was able to do balloon angioplasty for severe disease of the peroneal artery. Patient still have severe stenosis at the distal SFA. Patient was referred to [facility], underwent angiogram on January 10, 2018 had left SFA angioplasty with drug-coated balloon, atherectomy of the anterior tibial artery with jet stream followed by angioplasty of the anterior tibial artery and peroneal artery with drug-coated balloons, angioplasty to the dorsalis pedis. Unsuccessful posterior tibial artery cannulation. His peripheral arterial disease In the small vessel at the right lower extremity is deemed inoperable at this time. s/p Left BKA Congestive heart failure, ischemic cardiomyopathy, LV systolic dysfunction. Persistent cardiomyopathy with ejection fraction 20-25 percent, last echocardiogram was done in July 2017. History of single-chamber ICD implant for primary prevention. Maintained on beta kathrin. Unable to tolerate NORMAN-I or ARB secondary to renal function. Continue to monitor Paroxysmal atrial fibrillation-patient noted to have episodes of atrial fibrillation on his first ICD interrogation, longest episode up to one hour. continue on current medication including amiodarone and monitor Tobaccoism, reports recently quit smoking. Educated on importance of smoking cessation. History of port placement on the right side, status post retrieval after fractured port in June 2016 Hypertension, continue to monitor blood pressure Hyperlipidemia, was started on Lipitor 80 mg daily. Continue to monitor Diabetes mellitus, followed and monitored by primary care physician. Mild bilateral nonobstructive carotid artery stenosis, last carotid ultrasound was done in December 2017, continue to monitor Thank you for your consultation. Please call me if you have any questions. Jeremy Zaragoza MD, FACP, FACC, FSCAI, FHRS, CCDS Interventional Cardiology Cardiac Electrophysiology Vascular Medicine and Endovascular Interventions Jesus ZARAGOZA MD Apr 12, 2018 2:06 pm
--- NOTE | 2018-04-12 14:07 | PM&R Progress Note ---
Subjective HPI/CC On Admission Date Seen by Provider: Apr 12, 2018 Time Seen by Provider: 12:15 Subjective/Events-last exam Patient had a lot of bloating and felt very nauseated last night so started Reglan because he has had gastroparesis in the past during prior hospitalizations He reports the Reglan has really helped him so we'll maintain the before meals and at bedtime schedule Incision had a little bit or redness so Dr. Ceballos evaluated it and there were no changes since no fever and no appearance of infection Urinary output is variable and refuses catheter but he is urinating a little bit Appreciate urology consultation Review of Systems General: Fatigue Musculoskeletal: leg pain Objective Exam Vital Signs Vital Signs Date Time Temp Pulse Resp B/P (MAP) Pulse Ox O2 Delivery O2 Flow Rate FiO2 04/12/18 10:28 95 Room Air 04/12/18 10:28 54 04/12/18 09:12 139/83 (101) 04/12/18 06:00 97.8 20 04/10/18 00:04 21 Capillary Refill : General Appearance: No Apparent Distress, WD/WN, Chronically ill, Other (Pale, end-stage appearance) Respiratory: Chest Non Tender, Lungs Clear, Normal Breath Sounds, No Accessory Muscle Use, No Respiratory Distress Cardiovascular: Regular Rate, Rhythm, No Edema, No Gallop, No JVD, No Murmur, Normal Peripheral Pulses Extremity: Other (Left vsowd-aaz-lyni amputation dressing intact) Neurologic/Psychiatric: Alert, Oriented x3, No Motor/Sensory Deficits, Normal Mood/Affect Results/Procedures Lab Patient resulted labs reviewed. Assessment/Plan Assessment and Plan Assess & Plan/Chief Complaint Assessment: Infected left foot diabetic ulcer s/p left below the knee amputation by Dr. Chicas POD # 7 Congestive heart failure with elevated BNP resolved Chronic renal failure and not a dialysis candidate due to his refusal if that becomes a necessity Severe peripheral vascular disease failed intervention for revascularization of the lower extremities and failed wound care for 4 years CAD previous bypass surgery Hypertension Hyperlipidemia Smoker Gastroparesis with nausea and bloating responding to Reglan by mouth before meals/at bedtime Plan: Monitor creatinine DVT prophylaxis Left below the knee amputation rehab training Monitor BP Decrease Dilaudid Increase Hydrocodone to 10mg Q4hrs Reglan before meals/at bedtime Diagnosis/Problems Diagnosis/Problems (1) Amput below knee, unilat Status: Acute (2) CKD (chronic kidney disease) stage 3, GFR 30-59 ml/min Status: Chronic (3) Anemia in chronic kidney disease Status: Chronic (4) Ischemic cardiomyopathy Status: Chronic (5) Essential (primary) hypertension Status: Chronic (6) PVD (peripheral vascular disease) Status: Chronic (7) Dyspnea Status: Acute Qualifiers: Dyspnea type: unspecified Qualified Codes: R06.00 - Dyspnea, unspecified (8) Urinary retention Status: Acute (9) Insulin dependent diabetes mellitus Status: Chronic (10) Gastroparesis Status: Chronic Clinical Quality Measures Admission Status Admission Dx Assessment: Infected left foot diabetic ulcer s/p left below the knee amputation by Dr. Chicas POD # 4 Congestive heart failure with elevated BNP Chronic renal failure and not a dialysis candidate due to his refusal if that becomes a necessity Severe peripheral vascular disease failed intervention for revascularization of the lower extremities and failed wound care for 4 years CAD previous bypass surgery Hypertension Hyperlipidemia Smoker Plan: Monitor creatinine DVT prophylaxis Left below the knee amputation rehab training DVT/VTE Risk/Contraindication: Risk Factor Score Per Nursin RFS Level Per Nursing on Admit: 4+=Very High ABIODUN SOLANO DO Apr 12, 2018 14:06
[2018-04-12 15:41] VITALS: BP 125/80
[2018-04-12] MEDS: METOCLOPRAMIDE 10 MG (REGLAN) TAB PO SCH ×2 (15:49→20:10)
--- NOTE | 2018-04-12 15:52 | NUR ---
Post void bladder scan showing 411mls. Patient refusing straight cath at this time.
--- NOTE | 2018-04-12 20:00 | NUR ---
Post void bladder scan showing 441mls. Patient refusing straight cath at this time.
[2018-04-12] MEDS: ATORVASTATIN 80 MG (LIPITOR) TABLET PO SCH (20:10)
[2018-04-12] MEDS: POLYETHYLENE GLYCOL 17 GM (MIRALAX) PACK PO SCH (20:16)
--- NOTE | 2018-04-13 | NUR ---
Post void bladder scan showing 114 ml. Patient refusing straight cath at this time.
[2018-04-13 05:37] VITALS: BP 121/74
[2018-04-13] MEDS: BETHANECHOL 25 MG (URECHOLINE) TAB PO SCH ×4 (06:13→21:18)
[2018-04-13] MEDS: METOCLOPRAMIDE 10 MG (REGLAN) TAB PO SCH ×4 (06:13→21:18)
[2018-04-13] MEDS: inSUlin ASPART (NovoLOG) 1 UNIT/0.01 ML (CHARGE PER UNIT) SC SCH ×4 (06:14→20:45)
[2018-04-13] MEDS: LEVOTHYROXINE 100 MCG (LEVOTHROID) TAB PO SCH (06:15)
[2018-04-13] MEDS: HYDROcodone/APAP 10 MG/325 MG (LORTAB) TAB PO PRN ×3 (06:15→21:18)
[2018-04-13 08:45] VITALS: BP 123/74
[2018-04-13] MEDS: ISOSORBIDE MONONITRATE 30 MG (IMDUR) TAB PO SCH (08:46)
[2018-04-13] MEDS: AMIODARONE 200 MG (CORDARONE) TAB PO SCH (08:46)
[2018-04-13] MEDS: CARVEDILOL 3.125 MG (COREG) TABLET PO SCH ×2 (08:46→21:18)
[2018-04-13] MEDS: RT-ALBUTEROL/IPRATROPIUM 3 ML (DUONEB) VIAL INH SCH ×2 (08:50→20:36)
--- NOTE | 2018-04-13 09:50 | Progress Note (SOAP) ---
Subjective Date Seen by a Provider: Apr 13, 2018 Time Seen by a Provider: 09:20 Subjective/Events-last exam Patient seen with Dr. Ceballos. Patient reports doing ok. No N/V. No Fever/ chills. Reports left BKA discomfort but is tolerable with pain meds. Tolerating diet. Objective Exam Vital Signs Date Time Temp Pulse Resp B/P (MAP) Pulse Ox O2 Delivery O2 Flow Rate FiO2 04/13/18 08:51 98 Room Air 04/13/18 08:45 60 123/74 (90) 04/13/18 05:37 96.9 61 18 121/74 (90) 100 Room Air 04/12/18 19:55 Room Air 04/12/18 19:32 97 Room Air 04/12/18 15:41 97.4 51 16 125/80 (95) 96 Room Air 04/12/18 10:28 95 Room Air 04/12/18 10:28 54 95 I & O 04/13/18 07:00 Intake Total 680 ml Output Total 1150 ml Balance -470 ml Capillary Refill : General Appearance: No Apparent Distress, WD/WN Neck: Full Range of Motion, Normal Inspection, Non Tender, Supple Respiratory: Lungs Clear, Normal Breath Sounds, No Accessory Muscle Use, No Respiratory Distress Cardiovascular: Regular Rate, Rhythm, No Edema Gastrointestinal: normal bowel sounds, non tender, soft Extremity: Other (Left BKA incision C/D/I with mild erythema. Superfical burn is improving.) Neurologic/Psychiatric: Alert, Oriented x3 Skin: Normal Color, Warm/Dry Results Lab Laboratory Tests 04/12/18 11:19: Glucometer 117H 04/12/18 15:37: Glucometer 150H 04/12/18 20:27: Glucometer 173H 04/13/18 05:26: Glucometer 215H Assessment/Plan Assessment/Plan Assess & Plan/Chief Complaint s/p left bka dressing change daily pain control. Continue Levaquin 750mg daily. Will continue to monitor stump. Superficial burn left knee, will continue to monitor. Clinical Quality Measures DVT/VTE Risk/Contraindication: Risk Factor Score Per Nursin RFS Level Per Nursing on Admit: 4+=Very High ANTHONY GLORIA [employer] Apr 13, 2018 09:50
[2018-04-13] MEDS: ENOXAPARIN 40 MG/0.4 ML (LOVENOX) SYR SC SCH (11:25)
--- NOTE | 2018-04-13 11:40 | Progress Note-Urology ---
Progress Note-Urology Progress Notes/Assess & Plan Progress/Assessment & Plan HAS INCREASED PVR. TOLD THE PATIENT NEEDS TO STRAIGHT CATH ONCE TO GET RID OF RESIDUAL. ALSO WE WILL START FLOMAX Final Diagnosis RETENTION ANGELY MEEHAN MD Apr 13, 2018 11:40
[2018-04-13] MEDS ORDERED: LIDOCAINE UROJET 2% GEL 10 ML PKG ONE (12:07)
--- NOTE | 2018-04-13 12:34 | NUR ---
Voided 150mls in urinal. Bladder scan still showing 285mls PVR. Straight cath done per Dr. Lambert's order. 150mls of urine, immediate return. Patient tolerated fair. Lidocaine Uro-Jet used per protocol and patient's request.
--- NOTE | 2018-04-13 12:57 | PM&R Progress Note ---
Subjective HPI/CC On Admission Date Seen by Provider: Apr 13, 2018 Time Seen by Provider: 11:15 Subjective/Events-last exam Patient doing better Levaquin renal dosed started yesterday for incision cellulitis Sleeping better Urology recommended straight catheter to resolve retention and he is agreeable Pain is periodic Review of Systems Genitourinary: Retention Musculoskeletal: leg pain Objective Exam Vital Signs Vital Signs Date Time Temp Pulse Resp B/P (MAP) Pulse Ox O2 Delivery O2 Flow Rate FiO2 04/13/18 08:59 Room Air 04/13/18 08:51 98 04/13/18 08:45 60 123/74 (90) 04/13/18 05:37 96.9 18 04/10/18 00:04 21 Capillary Refill : General Appearance: No Apparent Distress, WD/WN, Chronically ill Respiratory: Chest Non Tender, Lungs Clear, Normal Breath Sounds, No Accessory Muscle Use, No Respiratory Distress Cardiovascular: Regular Rate, Rhythm, No Edema, No Gallop, No JVD, No Murmur, Normal Peripheral Pulses Neurologic/Psychiatric: Alert, Oriented x3, No Motor/Sensory Deficits, Normal Mood/Affect Results/Procedures Lab Patient resulted labs reviewed. Assessment/Plan Assessment and Plan Assess & Plan/Chief Complaint Assessment: Infected left foot diabetic ulcer s/p left below the knee amputation by Dr. Chicas POD # 8 Congestive heart failure with elevated BNP resolved Chronic renal failure and not a dialysis candidate due to his refusal if that becomes a necessity Severe peripheral vascular disease failed intervention for revascularization of the lower extremities and failed wound care for 4 years CAD previous bypass surgery Hypertension Hyperlipidemia Smoker Gastroparesis with nausea and bloating responding to Reglan by mouth before meals/at bedtime Urinary retention Plan: Monitor creatinine DVT prophylaxis Left below the knee amputation rehab training Monitor BP Decrease Dilaudid Increase Hydrocodone to 10mg Q4hrs Reglan before meals/at bedtime Urinary retention management Levaquin renal dosed for infected incision Diagnosis/Problems Diagnosis/Problems (1) Amput below knee, unilat Status: Acute (2) CKD (chronic kidney disease) stage 3, GFR 30-59 ml/min Status: Chronic (3) Anemia in chronic kidney disease Status: Chronic (4) Ischemic cardiomyopathy Status: Chronic (5) Essential (primary) hypertension Status: Chronic (6) PVD (peripheral vascular disease) Status: Chronic (7) Dyspnea Status: Acute Qualifiers: Dyspnea type: unspecified Qualified Codes: R06.00 - Dyspnea, unspecified (8) Urinary retention Status: Acute (9) Insulin dependent diabetes mellitus Status: Chronic (10) Gastroparesis Status: Chronic (11) Infected incision Status: Acute Clinical Quality Measures Admission Status Admission Dx Assessment: Infected left foot diabetic ulcer s/p left below the knee amputation by Dr. Chicas POD # 4 Congestive heart failure with elevated BNP Chronic renal failure and not a dialysis candidate due to his refusal if that becomes a necessity Severe peripheral vascular disease failed intervention for revascularization of the lower extremities and failed wound care for 4 years CAD previous bypass surgery Hypertension Hyperlipidemia Smoker Plan: Monitor creatinine DVT prophylaxis Left below the knee amputation rehab training DVT/VTE Risk/Contraindication: Risk Factor Score Per Nursin RFS Level Per Nursing on Admit: 4+=Very High ABIODUN SOLANO DO Apr 13, 2018 12:57
--- NOTE | 2018-04-13 15:10 | Cardiology Progress Note ---
Cardiology SOAP Progress Note Subjective: Patient complains of insomnia. Objective: I&O/Vital Signs 04/13/18 04/13/18 04/13/18 04/13/18 05:37 08:45 08:51 08:59 Temp 96.9 Pulse 61 60 Resp 18 B/P (MAP) 121/74 (90) 123/74 (90) Pulse Ox 100 98 O2 Delivery Room Air Room Air Room Air 04/13/18 00:00 Intake Total 480 ml Output Total 400 ml Balance 80 ml Weight (Pounds): 218 Weight (Ounces): 4.0 Weight (Calculated Kilograms): 98.920190 Constitutional: No appears stated age; AAO x 3; No apparent distress, No PERRL , No well-developed, No well-nourished, No other Respiratory: No accessory muscle use, No respiratory distress, No chest tender , No chest expansion is symmetric; chest is bilaterally symmetric; No lungs clear to percussion; lungs clear to auscultation; No crackles, No rhonchi, No rales, No stridor, No wheezing, No pleural rub, No other Cardiovascular: regular rate-rhythm; No irregularly irregular, No extra beats, No parasternal heave is noted, No JVD, No edema, No bradycardia, No tachycardia , No point of maximal impulse, No cardiac thrills are palpable; S1 and S2; No gallop/S3, No gallop/S4, No diastolic murmur, No systolic murmur, No friction rub, No click, No other Gastrointestional: No tender, No soft, No round, No distended, No pulsatile mass, No organomegaly, No guarding, No rebound, No tenderness, No hernia, No mass, No audible bowel sounds, No abnormal bowel sounds, No abdominal bruits, No spleenomegaly, No other Extremities: other (left BKA.) Neurologic/Psychiatric: no motor/sensory deficits, alert, normal mood/affect, oriented x 3 Results/Procedures: Labs Laboratory Tests 04/12/18 15:37: Glucometer 150H 04/12/18 20:27: Glucometer 173H 04/13/18 05:26: Glucometer 215H 04/13/18 11:23: Glucometer 154H A/P: Assessment/Dx: Admission Diagnosis Peripheral arterial disease Coronary artery disease Hypertension Hyperlipidemia, Insomnia. Plan: Assessment/Plan Left BKA done on April 04, 2018 secondary to nonhealing foot ulcer, history of right toes amputation in the past. Extensive peripheral arterial disease as described below. Recovering slowly. 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 Amiodarone continue. Coronary artery disease, history of CABG 4 in 2008 with cardiac catheterization June 02, [address] Arvizu revealing severe three-vessel [place] coronary artery disease with non-bypassed RCA, patent OSBORNE to LAD, patent vein graft to first diag, patent vein graft to first OM. There was occluded jump graft to the second obtuse marginal branch with successful PCI using bare-metal vision stent 3.0 x 28 mm to the second OM. At that time was reported patient staged intervention to the right and third OM branch after gallbladder removal by Dr. Arvizu, had stress test done at [facility] within then and no further intervention was made. Patient was to be scheduled for [facility] with intervention after healing of Left foot ulcer, however, patient did not follow up, Cardiac catheterization was carried out by Dr. Busch in January 2015 and reported as patent OSBORNE to the LAD vein graft to the diagonal artery and vein graft to the obtuse marginal artery, small vessel disease distally, the right coronary artery has severe diffuse disease, Dr. Busch felt that it is high risk for intervention at this time, medical therapy is recommended. Patient will require significant amount of stenting with limited benefit. Continue to monitor at this time Significant peripheral arterial disease, multiple intervention by Dr. Beebe in the past. Extensive workup in the past, angiogram was done on May 30, 2016 which showed on the right side subtotal occlusion of the anterior tibial artery , severe disease at the posterior tibial and peroneal artery and distal popliteal artery successful balloon angioplasty to the anterior tibial artery using 2.0 then 3.0 balloon with excellent results, balloon angioplasty to the popliteal artery using Lutonix 4.018 mm with excellent results. On July 02, 2016 patient was noted to have total occlusion of the anterior tibial artery of the left leg with balloon angioplasty using 3x100 balloon with excellent results. Return on July 04, 2016 and underwent intervention on the right lower extremity using Lutonix to the distal SFA 6 time 150 mm with excellent results. Patient has small vessel disease distally. On May 01, 2017 after having a nonhealing wound to the left heel. Was found to have total occlusion of the left anterior tibial artery, complex intervention using multiple wires and balloons with excellent results. Repeat angiogram was done on January 01, 2018 showing total occlusion of the anterior tibial artery with unsuccessful attempt to cross the lesion, I was able to do balloon angioplasty for severe disease of the peroneal artery. Patient still have severe stenosis at the distal SFA. Patient was referred to [facility], underwent angiogram on January 10, 2018 had left SFA angioplasty with drug-coated balloon, atherectomy of the anterior tibial artery with jet stream followed by angioplasty of the anterior tibial artery and peroneal artery with drug-coated balloons, angioplasty to the dorsalis pedis. Unsuccessful posterior tibial artery cannulation. His peripheral arterial disease In the small vessel at the right lower extremity is deemed inoperable at this time. s/p Left BKA Congestive heart failure, ischemic cardiomyopathy, LV systolic dysfunction. Persistent cardiomyopathy with ejection fraction 20-25 percent, last echocardiogram was done in July 2017. History of single-chamber ICD implant for primary prevention. Maintained on beta kathrin. Unable to tolerate NORMAN-I or ARB secondary to renal function. Continue to monitor Paroxysmal atrial fibrillation-patient noted to have episodes of atrial fibrillation on his first ICD interrogation, longest episode up to one hour. continue on current medication including amiodarone and monitor Tobaccoism, reports recently quit smoking. Educated on importance of smoking cessation. History of port placement on the right side, status post retrieval after fractured port in June 2016 Hypertension, continue to monitor blood pressure Hyperlipidemia, was started on Lipitor 80 mg daily. Continue to monitor Diabetes mellitus, followed and monitored by primary care physician. Mild bilateral nonobstructive carotid artery stenosis, last carotid ultrasound was done in December 2017, continue to monitor Thank you for your consultation. Please call me if you have any questions. Jeremy Zaragoza MD, FACP, FACC, FSCAI, FHRS, CCDS Interventional Cardiology Cardiac Electrophysiology Vascular Medicine and Endovascular Interventions Jesus ZARAGOZA MD Apr 13, 2018 3:10 pm
[2018-04-13 16:30] VITALS: BP 123/81
[2018-04-13] MEDS: TAMSULOSIN 0.4 MG (FLOMAX) CAP PO SCH (17:27)
[2018-04-13] MEDS: ALPRAZolam 0.25 MG (XANAX) TAB PO PRN (21:17)
[2018-04-13] MEDS: MELATONIN 3 MG TABLET PO PRN (21:18)
[2018-04-13] MEDS: POLYETHYLENE GLYCOL 17 GM (MIRALAX) PACK PO SCH (21:20)
[2018-04-13] MEDS: ATORVASTATIN 80 MG (LIPITOR) TABLET PO SCH (21:24)
[2018-04-14] MEDS: HYDROcodone/APAP 10 MG/325 MG (LORTAB) TAB PO PRN ×4 (03:21→21:48)
[2018-04-14 06:00] VITALS: BP 116/73
[2018-04-14] MEDS: BETHANECHOL 25 MG (URECHOLINE) TAB PO SCH ×4 (06:43→21:47)
[2018-04-14] MEDS: LEVOTHYROXINE 100 MCG (LEVOTHROID) TAB PO SCH (06:43)
[2018-04-14] MEDS: METOCLOPRAMIDE 10 MG (REGLAN) TAB PO SCH ×4 (06:44→21:47)
[2018-04-14] MEDS: inSUlin ASPART (NovoLOG) 1 UNIT/0.01 ML (CHARGE PER UNIT) SC SCH ×4 (06:57→21:00)
--- NOTE | 2018-04-14 08:42 | Cardiology Progress Note ---
Subjective Date Seen by Provider: Apr 14, 2018 Time Seen by Provider: 08:10 Subjective/Events-last exam Patient up in wheelchair, receiving physical therapy. Denies any chest pain or dyspnea. No complaints at this time. Review of Systems General: No Night Sweats, No Fatigue, No Malaise HEENT: No Visual Changes, No Dysphasia, No Sore Throat Pulmonary: No Dyspnea, No Cough Cardiovascular: Edema; No: Chest Pain, Palpitations Gastrointestinal: No: Nausea, Vomiting, Abdominal Pain Genitourinary: No Dysuria, No Frequency Musculoskeletal: No: neck pain, back pain Neurological: No: Weakness, Numbness Objective-Cardiology Exam Last Set of Vital Signs Vital Signs 04/10/18 04/14/18 00:04 06:00 Temp 97.4 Pulse 57 Resp 18 B/P (MAP) 116/73 (87) Pulse Ox 97 O2 Delivery Room Air FiO2 21 Capillary Refill : I&O Intake and Output 04/14/18 00:00 Intake Total 700 ml Output Total 1350 ml Balance -650 ml Intake Oral 700 ml Output Urine Total 1350 ml Bladder Scan Volume Amount 482 ml General: Alert, Oriented X3, Cooperative HEENT: Atraumatic, PERRLA Neck: Supple, No JVD, No Thyromegaly Lungs: Normal Air Movement, Other (rhonchi) Heart: Regular Rate, Normal S1, Normal S2, Other (systolic murmur at the left sternal border) Abdomen: Normal Bowel Sounds, Soft, No Tenderness, No Hepatosplenomegaly, No Masses Extremities: No Clubbing, No Cyanosis, No Edema, No Tenderness/Swelling, Other (BKA) Skin: No Rashes, No Breakdown, No Significant Lesion Neuro: Normal Speech, Normal Tone, Sensation Intact Psych/Mental Status: Mental Status NL, Mood NL A/P-Cardiology Admission Diagnosis Peripheral arterial disease Coronary artery disease Hypertension Hyperlipidemia Assessment/Plan Left BKA done on April 04, 2018 secondary to nonhealing foot ulcer, history of right toes amputation in the past. Extensive peripheral arterial disease as described below. Recovering slowly. 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 Coronary artery disease, history of CABG 4 in 2008 with cardiac catheterization June 02, [address] Arvizu revealing severe three-vessel [place] coronary artery disease with non-bypassed RCA, patent OSBORNE to LAD, patent vein graft to first diag, patent vein graft to first OM. There was occluded jump graft to the second obtuse marginal branch with successful PCI using bare-metal vision stent 3.0 x 28 mm to the second OM. At that time was reported patient staged intervention to the right and third OM branch after gallbladder removal by Dr. Arvizu, had stress test done at [facility] within then and no further intervention was made. Patient was to be scheduled for [facility] with intervention after healing of Left foot ulcer, however, patient did not follow up, Cardiac catheterization was carried out by Dr. Busch in January 2015 and reported as patent OSBORNE to the LAD vein graft to the diagonal artery and vein graft to the obtuse marginal artery, small vessel disease distally, the right coronary artery has severe diffuse disease, Dr. Busch felt that it is high risk for intervention at this time, medical therapy is recommended. Patient will require significant amount of stenting with limited benefit. Continue to monitor at this time Significant peripheral arterial disease, multiple intervention by Dr. Beebe in the past. Extensive workup in the past, angiogram was done on May 30, 2016 which showed on the right side subtotal occlusion of the anterior tibial artery , severe disease at the posterior tibial and peroneal artery and distal popliteal artery successful balloon angioplasty to the anterior tibial artery using 2.0 then 3.0 balloon with excellent results, balloon angioplasty to the popliteal artery using Lutonix 4.018 mm with excellent results. On July 02, 2016 patient was noted to have total occlusion of the anterior tibial artery of the left leg with balloon angioplasty using 3x100 balloon with excellent results. Return on July 04, 2016 and underwent intervention on the right lower extremity using Lutonix to the distal SFA 6 time 150 mm with excellent results. Patient has small vessel disease distally. On May 01, 2017 after having a nonhealing wound to the left heel. Was found to have total occlusion of the left anterior tibial artery, complex intervention using multiple wires and balloons with excellent results. Repeat angiogram was done on January 01, 2018 showing total occlusion of the anterior tibial artery with unsuccessful attempt to cross the lesion, I was able to do balloon angioplasty for severe disease of the peroneal artery. Patient still have severe stenosis at the distal SFA. Patient was referred to [facility], underwent angiogram on January 10, 2018 had left SFA angioplasty with drug-coated balloon, atherectomy of the anterior tibial artery with jet stream followed by angioplasty of the anterior tibial artery and peroneal artery with drug-coated balloons, angioplasty to the dorsalis pedis. Unsuccessful posterior tibial artery cannulation. His peripheral arterial disease In the small vessel at the right lower extremity is deemed inoperable at this time. s/p Left BKA Congestive heart failure, ischemic cardiomyopathy, LV systolic dysfunction. Persistent cardiomyopathy with ejection fraction 20-25 percent, last echocardiogram was done in July 2017. History of single-chamber ICD implant for primary prevention. Maintained on beta kathrin. Unable to tolerate NORMAN-I or ARB secondary to renal function. Continue to monitor Paroxysmal atrial fibrillation-patient noted to have episodes of atrial fibrillation on his first ICD interrogation, longest episode up to one hour. continue on current medication including amiodarone and monitor Tobaccoism, reports recently quit smoking. Educated on importance of smoking cessation. History of port placement on the right side, status post retrieval after fractured port in June 2016 Hypertension, continue to monitor blood pressure Hyperlipidemia, was started on Lipitor 80 mg daily. Continue to monitor Diabetes mellitus, followed and monitored by primary care physician. Mild bilateral nonobstructive carotid artery stenosis, last carotid ultrasound was done in December 2017, continue to monitor Clinical Quality Measures DVT/VTE Risk/Contraindication: Risk Factor Score Per Nursin RFS Level Per Nursing on Admit: 4+=Very High SHAYNA GRANDE Apr 14, 2018 08:42
--- NOTE | 2018-04-14 08:51 | PM&R Progress Note ---
Subjective This was a face to face visit with the patient. Date Seen by Provider: Apr 14, 2018 Time Seen by Provider: 08:15 Subjective/Events-last exam Patient was seen in the gym during his workout Participating in therapy trying to get stronger in order to go home Will check labs in the morning Require straight in and out catheters periodically due to retention Overall feels good On Levaquin renal dose due to incision cellulitis Denies any significant changes Review of Systems Musculoskeletal: leg pain Objective Physician Exam Last Set of Vital Signs Vital Signs Date Time Temp Pulse Resp B/P (MAP) Pulse Ox O2 Delivery O2 Flow Rate FiO2 04/14/18 06:00 97.4 57 18 116/73 (87) 97 Room Air 04/10/18 00:04 21 Capillary Refill : I&O Intake and Output 04/14/18 00:00 Intake Total 700 ml Output Total 1350 ml Balance -650 ml Intake Oral 700 ml Output Urine Total 1350 ml Bladder Scan Volume Amount 482 ml General: Alert, Oriented X3, Cooperative HEENT: Atraumatic, PERRLA Neck: Supple, No JVD, No Thyromegaly Lungs: Normal Air Movement, Other (rhonchi) Heart: Regular Rate, Normal S1, Normal S2, Other (systolic murmur at the left sternal border) Abdomen: Normal Bowel Sounds, Soft, No Tenderness, No Hepatosplenomegaly, No Masses Extremities: No Clubbing, No Cyanosis, No Edema, No Tenderness/Swelling, Other (BKA) Skin: No Rashes, No Breakdown, No Significant Lesion Neuro: Normal Speech, Normal Tone, Sensation Intact Psych/Mental Status: Mental Status NL, Mood NL Results Lab Data Laboratory Tests 04/11/18 11:09: Glucometer 151H 04/11/18 16:09: Glucometer 196H 04/11/18 20:37: Glucometer 232H 04/12/18 05:47: Glucometer 109 04/12/18 11:19: Glucometer 117H 04/12/18 15:37: Glucometer 150H 04/12/18 20:27: Glucometer 173H 04/13/18 05:26: Glucometer 215H 04/13/18 11:23: Glucometer 154H 04/13/18 16:32: Glucometer 208H 04/13/18 20:37: Glucometer 118H 04/14/18 05:44: Glucometer 142H Current Funtional Status Maintained therapies Check labs in a.m. Maintain insulin Pain control Reglan for gastroparesis Monitor closely Assessment/Plan Assessment and Plan (1) Amput below knee, unilat Status: Acute (2) CKD (chronic kidney disease) stage 3, GFR 30-59 ml/min Status: Chronic (3) Anemia in chronic kidney disease Status: Chronic (4) Ischemic cardiomyopathy Status: Chronic (5) Essential (primary) hypertension Status: Chronic (6) PVD (peripheral vascular disease) Status: Chronic (7) Dyspnea Qualifiers: Qualified Codes: R06.00 - Dyspnea, unspecified Status: Acute (8) Urinary retention Status: Acute (9) Insulin dependent diabetes mellitus Status: Chronic (10) Gastroparesis Status: Chronic (11) Infected incision Status: Acute Co-Morbidities that are continuing to impact the rehab process: (include details ) ABIODUN SOLANO DO Apr 14, 2018 08:51
--- NOTE | 2018-04-14 09:20 | Occupational Ther Daily Note ---
OT Current Status-Daily Note Subjective Pt stated , " I am fine today, had a good night sleep & I am not cold. " I will take shower to land[place] Not today, when therapist asked going for shower. Pain Numeric Pain Scale: 0-No Pain Mental Status/Objective Patient Orientation: Person, Place, Time, Situation Therapy Code Descriptions/Definitions Functional [place] Measure: 0=Not Assessed/NA 4=Minimal Assistance 1=Total Assistance 5=Supervision or Setup 2=Maximal Assistance 6=Modified [place] 3=Moderate Assistance 7=Complete [place] ADL-Treatment Pt wiped his face, hairs, arms, front & back of neck, both legs & with mod I & back of trunk with min A , brush is bran & hairs with set up , Dress UB with set uo , func transfers from bed to w/c with transfers board with SBA & safety awareness, Performed 30 reps x 2 sets x 3 lb wts with BUE flex/ext of both elbow & shoulders & 30 reps with red theraband . Pt propel w/c Independently. Therapy Code Descriptions/Definitions Functional [place] Measure: 0=Not Assessed/NA 4=Minimal Assistance 1=Total Assistance 5=Supervision or Setup 2=Maximal Assistance 6=Modified [place] 3=Moderate Assistance 7=Complete [place] Therapy Quality Codes: 6 Independent with activity with or without an assistive device 5 Patient requires set up or clean up by helper. Patient completes activity by themselves 4 Supervision or touching assist (CGA). [place] provide cues , steadying assist 3 The helper provides less than half the effort to complete the activity 2 The helper provides more than half the effort to complete the activity 1 Dependent. The helper does all the effort to complete an activity 7 Patient refused to complete or attempt activity 9 The patient did not perform the activity before the current illness or injury 88 Not attempted due to Medical conditions or safety concerns Eating (FIM): 6 Eating (QC): 6 Grooming (FIM): 5 Oral Hygiene (QC): 5 Bathing (FIM): 0 Shower/Bathe Self (QC): 0 Upper Body (FIM): 5 Upper Body Dressing (QC): 5 Lower Body Dressing (FIM): 4 Lower Body Dressing (QC): 4 On/Off Footwear (QC): 0 (no foot wears available .) Toileting (FIM): 5 Toileting Hygiene (QC): 5 Transfers (B, C, W/C) (FIM): 5 Toilet/Commode Transfer (FIM): 5 Toilet Transfer (QC): 5 Tub Transfer(FIM): 0 Shower Transfer(FIM): 0 Education OT Patient Education: Correct positioning, Safety issues, Transfer techniques Teaching Recipient: Patient Teaching Methods: Demonstration, Discussion Response to Teaching: Verbalize Understanding, Return Demonstration OT Short Term Goals Short Term Goals Time Frame: Apr 21, 2018 Eating(FIM): 7 Grooming(FIM): 7 Bathing(FIM): 5 Bathing Location: L Arm, R Arm, L Upper Leg, R Upper Leg, L Lower Leg ( including foot), R Lower Leg (including foot), Chest, Abdomen, Buttocks, Perineal Area Upper Body Dressing(FIM): 7 Lower Body Dressing(FIM): 4 Toileting(FIM): 4 (with transfer bench) Transfers (B,C,W/C) (FIM): 5 Toilet/Commode Transfer(FIM): 4 Additional Short Term Goals: 1-Demonstrate ADL Tasks, 2-Verbalize Understanding , 3-ImproveStrength/Vickie 1=Demonstrate adherence to instructed precautions during ADL tasks. 2=Patient will verbalize/demonstrate understanding of assistive devices/ modifications for ADL. 3=Patient will improve strength/tolerance for activity to enable patient to perform ADL's. OT Cupola Melter Goals Cupola Melter Goals Time Frame: May 05, 2018 Eating (FIM): 7 Eating (QC): 6 Groomin Oral Hygiene (QC): 6 Bathing(FIM): 6 Bathing Location: L Arm, R Arm, L Upper Leg, R Upper Leg, L Lower Leg ( including foot), R Lower Leg (including foot), Chest, Abdomen, Buttocks, Perineal Area Shower/Bathe Self (QC): 6 Upper Body Dressing(FIM): 7 Upper Body Dressing (QC): 6 Lower Body Dressing(FIM): 5 Lower Body Dressing (QC): 5 Toileting Hygiene (QC): 6 Transfers (B,C,W/C) (FIM): 5 Toilet/Commode Transfer(FIM): 6 Toilet/Commode Transfer (QC): 5 Shower Transfer(FIM): 6 Additional Goals: 1-Demonstrate ADL Tasks, 2-Verbalize Understanding, 3- ImproveStrength/Vickie 1=Demonstrate adherence to instructed precautions during ADL tasks. 2=Patient will verbalize/demonstrate understanding of assistive devices/ modifications for ADL. 3=Patient will improve strength/tolerance for activity to enable patient to perform ADL's. OT Education/Plan Problem List/Assessment Assessment: Decreased Activ Tolerance, Decreased Safety Aware, Decreased UE Strength, Impaired Bed Mobility, Impaired Funct Balance, Impaired Self-Care Skills Discharge Recommendations Plan/Recommendations: Continue POC Therapy D/C Recommendations: Home Independently Equpiment Recommendations-D/C: Extended Shower Sprayer, Casing Man, Rails on Toilet Treatment Plan/Plan of Care Patient would benefit from OT for education, treatment and training to promote independence in ADL's, mobility, safety and/or upper extremity function for ADL' s. Plan of Care: ADL Retraining, Cognitive Retraining, Functional Mobility, Group Exercise/Act as Ind, UE Funct Exercise/Act Treatment Duration: May 05, 2018 Frequency: At least 5 of 7 days/Wk (IRF) Estimated Hrs Per Day: 1.5 hours per day Agreement: Yes Rehab Potential: Good Time/GCodes Start Time: 08:00 Stop Time: 09:00 Total Time Billed (hr/min): 60 Billed Treatment Time 1, ADLs x 30 min & Ex x 30 min. Total 60 minutes. GITA GASPAR OT Apr 14, 2018 09:20
[2018-04-14] MEDS: ISOSORBIDE MONONITRATE 30 MG (IMDUR) TAB PO SCH (09:22)
[2018-04-14] MEDS: AMIODARONE 200 MG (CORDARONE) TAB PO SCH (09:22)
[2018-04-14] MEDS: CARVEDILOL 3.125 MG (COREG) TABLET PO SCH ×2 (09:32→21:47)
--- NOTE | 2018-04-14 09:40 | NUR ---
VOIDED 175 CC. POST VOID BLADDER SCAN SHOWED 224 CC.
[2018-04-14] MEDS: RT-ALBUTEROL/IPRATROPIUM 3 ML (DUONEB) VIAL INH SCH ×2 (10:42→19:23)
[2018-04-14] MEDS ORDERED: ENOXAPARIN 30 MG/0.3 ML (LOVENOX) SYR SC SCH (11:00)
--- NOTE | 2018-04-14 11:02 | Cardiology Progress Note ---
Subjective Date Seen by Provider: Apr 14, 2018 Time Seen by Provider: 11:01 Subjective/Events-last exam Patient is sitting comfortably in bed, no new complaint. No chest pain Review of Systems General: No Chills, No Night Sweats, No Fatigue, No Malaise, No Appetite, No Other HEENT: No Head Aches, No Visual Changes, No Eye Pain, No Ear Pain, No Dysphasia , No Sinus Congestion, No Post Nasal Drip, No Sore Throat, No Other Pulmonary: No Dyspnea, No Cough, No Pleuritic Chest Pain, No Other Cardiovascular: No: Chest Pain, Palpitations, Orthopnea, Paroxysmal Noc. Dyspnea, Edema, Lt Headedness, Other Objective-Cardiology Exam Last Set of Vital Signs Vital Signs 04/10/18 04/14/18 04/14/18 00:04 06:00 10:42 Temp 97.4 Pulse 57 Resp 18 B/P (MAP) 116/73 (87) Pulse Ox 93 O2 Delivery Room Air FiO2 21 Capillary Refill : I&O Intake and Output 04/13/18 23:59 Intake Total 700 ml Output Total 1350 ml Balance -650 ml Intake Oral 700 ml Output Urine Total 1350 ml Bladder Scan Volume Amount 482 ml General: Alert, Oriented X3, Cooperative HEENT: Atraumatic, PERRLA Neck: Supple, No JVD, No Thyromegaly Lungs: Normal Air Movement, Other (rhonchi) Heart: Regular Rate, Normal S1, Normal S2, Other (systolic murmur at the left sternal border) Abdomen: Normal Bowel Sounds, Soft, No Tenderness, No Hepatosplenomegaly, No Masses Extremities: No Clubbing, No Cyanosis, No Edema, No Tenderness/Swelling, Other (BKA) Skin: No Rashes, No Breakdown, No Significant Lesion Neuro: Normal Speech, Normal Tone, Sensation Intact Psych/Mental Status: Mental Status NL, Mood NL Results Lab Laboratory Tests Test 04/13/18 11:23 04/13/18 16:32 04/13/18 20:37 04/14/18 05:44 Range/Units Glucometer 154 H 208 H 118 H 142 H 70-110 MG/DL A/P-Cardiology Admission Diagnosis Peripheral arterial disease Coronary artery disease Hypertension Hyperlipidemia Assessment/Plan Left BKA done on April 04, 2018 secondary to nonhealing foot ulcer, history of right toes amputation in the past. Extensive peripheral arterial disease as described below. Recovering slowly. 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 Coronary artery disease, history of CABG 4 in 2008 with cardiac catheterization June 02, [address] Arvizu revealing severe three-vessel [place] coronary artery disease with non-bypassed RCA, patent OSBORNE to LAD, patent vein graft to first diag, patent vein graft to first OM. There was occluded jump graft to the second obtuse marginal branch with successful PCI using bare-metal vision stent 3.0 x 28 mm to the second OM. At that time was reported patient staged intervention to the right and third OM branch after gallbladder removal by Dr. Arvizu, had stress test done at [facility] within then and no further intervention was made. Patient was to be scheduled for [facility] with intervention after healing of Left foot ulcer, however, patient did not follow up, Cardiac catheterization was carried out by Dr. Busch in January 2015 and reported as patent OSBORNE to the LAD vein graft to the diagonal artery and vein graft to the obtuse marginal artery, small vessel disease distally, the right coronary artery has severe diffuse disease, Dr. Busch felt that it is high risk for intervention at this time, medical therapy is recommended. Patient will require significant amount of stenting with limited benefit. Continue to monitor at this time Significant peripheral arterial disease, multiple intervention by Dr. Beebe in the past. Extensive workup in the past, angiogram was done on May 30, 2016 which showed on the right side subtotal occlusion of the anterior tibial artery , severe disease at the posterior tibial and peroneal artery and distal popliteal artery successful balloon angioplasty to the anterior tibial artery using 2.0 then 3.0 balloon with excellent results, balloon angioplasty to the popliteal artery using Lutonix 4.018 mm with excellent results. On July 02, 2016 patient was noted to have total occlusion of the anterior tibial artery of the left leg with balloon angioplasty using 3x100 balloon with excellent results. Return on July 04, 2016 and underwent intervention on the right lower extremity using Lutonix to the distal SFA 6 time 150 mm with excellent results. Patient has small vessel disease distally. On May 01, 2017 after having a nonhealing wound to the left heel. Was found to have total occlusion of the left anterior tibial artery, complex intervention using multiple wires and balloons with excellent results. Repeat angiogram was done on January 01, 2018 showing total occlusion of the anterior tibial artery with unsuccessful attempt to cross the lesion, I was able to do balloon angioplasty for severe disease of the peroneal artery. Patient still have severe stenosis at the distal SFA. Patient was referred to [facility], underwent angiogram on January 10, 2018 had left SFA angioplasty with drug-coated balloon, atherectomy of the anterior tibial artery with jet stream followed by angioplasty of the anterior tibial artery and peroneal artery with drug-coated balloons, angioplasty to the dorsalis pedis. Unsuccessful posterior tibial artery cannulation. His peripheral arterial disease In the small vessel at the right lower extremity is deemed inoperable at this time. s/p Left BKA Congestive heart failure, ischemic cardiomyopathy, LV systolic dysfunction. Persistent cardiomyopathy with ejection fraction 20-25 percent, last echocardiogram was done in July 2017. History of single-chamber ICD implant for primary prevention. Maintained on beta kathrin. Unable to tolerate NORMAN-I or ARB secondary to renal function. I will interrogate his ICD Paroxysmal atrial fibrillation-patient noted to have episodes of atrial fibrillation on his first ICD interrogation, longest episode up to one hour. continue on current medication including amiodarone and monitor Tobaccoism, reports recently quit smoking. Educated on importance of smoking cessation. History of port placement on the right side, status post retrieval after fractured port in June 2016 Hypertension, continue to monitor blood pressure Hyperlipidemia, was started on Lipitor 80 mg daily. Continue to monitor Diabetes mellitus, followed and monitored by primary care physician. Mild bilateral nonobstructive carotid artery stenosis, last carotid ultrasound was done in December 2017, continue to monitor Clinical Quality Measures DVT/VTE Risk/Contraindication: Risk Factor Score Per Nursin RFS Level Per Nursing on Admit: 4+=Very High JORDEN GREER MD Apr 14, 2018 11:02 am
--- NOTE | 2018-04-14 11:47 | Physical Therapy Daily Note ---
PT Daily Note-Current Subjective Patient in bed pre tx, agrees to PT, has pain of 5/10 in left leg. Appearance Patient sitting EOB post tx with nurse call, phone, tray, all needs met. Mental Status Patient Orientation: Person, Place, Situation, Normal For Age Transfers Therapy Code Descriptions/Definitions Functional [place] Measure: 0=Not Assessed/NA 4=Minimal Assistance 1=Total Assistance 5=Supervision or Setup 2=Maximal Assistance 6=Modified [place] 3=Moderate Assistance 7=Complete [place] Therapy Quality Codes: 6 Independent with activity with or without an assistive device 5 Patient requires set up or clean up by helper. Patient completes activity by themselves 4 Supervision or touching assist (CGA). [place] provide cues , steadying assist 3 The helper provides less than half the effort to complete the activity 2 The helper provides more than half the effort to complete the activity 1 Dependent. The helper does all the effort to complete an activity 7 Patient refused to complete or attempt activity 9 The patient did not perform the activity before the current illness or injury 88 Not attempted due to Medical conditions or safety concerns Transfers (B, C, W/C) (FIM): 5 Scootin Rollin Supine to/from Sit: 6 Sit to/from Stand: 5 Bed to/from Chair: 5 Weight Bearing Right Lower Extremity: Right Weight Bearing/Tolerated Left Lower Extremity: Left (BKA) Gait Training Gait (FIM): 1 Distance: 10' Gait Level of Assist: 4 Gait Persons Needed: 1 Gait Assistive Device: FWW Patient was able to ambulate 10' with a rolling walker with CGA. Very unsteady but no luba LOB, very slow ambulation, poor foot clearance on the right side. Wheelchair Training Does the Pt Use a Wheelchair?: Yes Wheelchair (FIM): 6 Distance: 150'x2 Type of Wheelchair: Manual Exercises Supine Ex: Heel Slides, Straight leg raise, Hip abd/add Supine Reps: 15 LAQ alternating for 5 min, prone hip stretch 5 min, sidelying left hip abd x15 Treatments bed mobility and transfers, ambulation, functional strengthening and ROM, wheelchair mobility Assessment Current Status: Fair Progress improving ambulation PT Short Term Goals Short Term Goals Time Frame: Apr 14, 2018 Transfers (B,C,W/C) (FIM): 5 Gait (FIM): 2 Distance (FIM): 7=408-17 ft Gait Distance Comment: 25 Gait Level of Assist: 4 Gait Assistive Device: FWW Wheelchair (FIM): 5 Wheelchair distance (FIM): 3=150 ft Wheelchair Distance: 150'x2 PT Chcf Goals Manufacturing Quality Manager Goals PT Manufacturing Quality Manager Goals Time Frame: Apr 30, 2018 Transfers (B,C,W/C) (FIM): 6 Sit to Lying (QC): 6 Lying-Sitting on Side/Bed(QC): 6 Sit to Stand (QC): 6 Rollin Roll Left to Right (QC): 6 Chair/Bbo-tj-Emiom Xfer(QC): 6 Car Transfer (QC): 5 Does the Patient Walk: No and Walking Goal IS indicated Gait (FIM): 2 Gait distance (FIM): 0=085-31 ft Distance: 25 ft Walk 10 feet (QC): 6 Walk 10ft-Uneven Surface(QC): 6 Walk 50ft with 2 Turns (QC): 88 Walk 150 ft (QC): 88 Gait Level of Assist: 6 Gait Assistive Device: FWW Does the Pt use WC or Scooter?: Yes Wheelchair (FIM): 6 Wheelchair distance (FIM): 3=150 ft Wheel 50 feet with 2 turns (QC: 6 Stairs (FIM): 5 (household; modified scooting on his buttock) # of Steps: 4 1 Step (curb) (QC): 6 4 Steps (QC): 6 12 Steps (QC): 88 Picking up an Object (QC): 6 (with a second butler) PT Plan Problem List Problem List: Activity Tolerance, Functional Strength, Safety, Balance, Gait, Transfer, Bed Mobility, ROM Treatment/Plan Treatment Plan: Continue Plan of Care Treatment Plan: Bed Mobility, Education, Functional Activity Vickie, Functional Strength, Group Therapy, Gait, Safety, Therapeutic Exercise, Transfers Treatment Duration: Apr 30, 2018 Frequency: At least 5 of 7 days/Wk (IRF) Estimated Hrs Per Day: 1.5 hours per day Patient and/or Family Agrees t: Yes Safety Risks/Education Patient Education: Gait Training, Transfer Techniques, Correct Positioning, W/ C Management, Safety Issues Teaching Recipient: Patient Teaching Methods: Demonstration, Discussion Response to Teaching: Reinforcement Needed Time/GCodes Time In: 1045 Time Out: 1130 Total Billed Treatment Time: 45 Total Billed Treatment 1 visit GT 10' FA 15' EX 20' ALEJANDRA DEVINE PT Apr 14, 2018 11:47
[2018-04-14] MEDS: LEVOFLOXACIN 750 MG TAB (LEVAQUIN) PO SCH (14:40)
--- NOTE | 2018-04-14 14:47 | Therapy Group Daily Note ---
Therapy Daily Group Note Patient Education Topic Other List Below (transfers) Exercises LE Seated Exercise, UE Exercise Other/Notes Pt participated in group therapy with 3 to 1 ratio. Goals of session: Understanding of safe transfers (car, bed, chair, tub/shower) .(met) Remember one seated exercise UE or LE to lead group.(met) Complete UE/ LE seated exercises.(met) Pt propelled w/c to [facility] for OT/PT group. Group consisted of introductions (name, place, favorite place to visit*fishing*), socialization, seated UE/LE exercises, education on safe transfers and 5 memory words (khushi, VW , 1, dog, cinnamon candy). Pt introduced self appropriately and actively listened to peers. Pt able to complete UE/LE seated exercise with modified one arm technique. Pt lead elbow flexion exercise, 10x's. Pt acknowledged understanding of transfers by nodding head in acknowledgement and verbalizing own story about transfers and home. After group, pt lying in bed with call light/phone in reach. All needs met in room. Start Time: 13:00 Stop Time: 14:15 Total Billed Treatment Time: 75 Total Billed Treatment 1-GRP MOHAN BEATTY Apr 14, 2018 14:47
--- NOTE | 2018-04-14 15:00 | NUR ---
[employer] HERE TO INTERROGATE PACER/DEFIBRILLATOR. PATIENT STATES CHANGES WERE MADE.
[2018-04-14 17:26] VITALS: BP 125/72
[2018-04-14] MEDS: TAMSULOSIN 0.4 MG (FLOMAX) CAP PO SCH (17:51)
--- NOTE | 2018-04-14 19:00 | NUR ---
VOIDED 150 CC. POST VOID BLADDER SCAN SHOWED 425 CC. STRAIGHT CATH'D USING LIDOCAINE UROJECT. 300 CC URINE RETURN. PATIENT WOULD ONLY AGREE TO STRAIGHT CATH IF LIDOCAINE WOULD BE USED.
[2018-04-14] MEDS ORDERED: LIDOCAINE UROJET 2% GEL 10 ML PKG ONE (19:28)
--- NOTE | 2018-04-14 19:35 | NUR ---
bedside report received from DIANA GAMINO, assume care of pt
--- NOTE | 2018-04-14 20:00 | NUR ---
assessments & interventions completed, see assessments & interventions, fsbs 153 no ss insulin req
[2018-04-14] MEDS: POLYETHYLENE GLYCOL 17 GM (MIRALAX) PACK PO SCH (21:00)
[2018-04-14 21:40] VITALS: BP 132/82
[2018-04-14] MEDS: ALPRAZolam 0.25 MG (XANAX) TAB PO PRN (21:47)
[2018-04-14] MEDS: ATORVASTATIN 80 MG (LIPITOR) TABLET PO SCH (21:47)
--- NOTE | 2018-04-14 21:48 | NUR ---
c/o leg pain level 7/10 on numeric scale, Lortab 10 1 tab & Xanax 0.25mg po given for anxiety
--- NOTE | 2018-04-14 22:15 | NUR ---
resting quietly in bed, pain level 0/10 on flacc scale
[2018-04-15] MEDS: HYDROcodone/APAP 10 MG/325 MG (LORTAB) TAB PO PRN ×2 (01:48→06:25)
--- NOTE | 2018-04-15 01:48 | NUR ---
c/o leg pain level 8/10 on numeric scale, lortab 10 1 tab po given
--- NOTE | 2018-04-15 02:30 | NUR ---
resting quietly in bed pain level 0/10 on flacc scale
[2018-04-15] MEDS ORDERED: LIDOCAINE UROJET 2% GEL 10 ML PKG ONE (05:11)
[2018-04-15] MEDS ORDERED: LIDOCAINE UROJET 2% GEL 10 ML PKG TOP ONE (05:15)
--- NOTE | 2018-04-15 05:15 | NUR ---
bladder scan showed 472ml
--- NOTE | 2018-04-15 05:35 | NUR ---
straight cath & received 350ml emily colored urine encouraged fluid preferably water
[2018-04-15] MEDS: METOCLOPRAMIDE 10 MG (REGLAN) TAB PO SCH ×4 (05:45→20:52)
[2018-04-15] MEDS: BETHANECHOL 25 MG (URECHOLINE) TAB PO SCH ×4 (05:45→20:52)
[2018-04-15] MEDS: LEVOTHYROXINE 100 MCG (LEVOTHROID) TAB PO SCH (05:45)
[2018-04-15 05:46] VITALS: BP 128/81
[2018-04-15 06:03] LABS: BASOPHILS % (AUTO) 0 % (0-10); EOSINOPHILS # (AUTO) 0.1 10^3/uL (0.0-0.3); EOSINOPHILS % (AUTO) 1 % (0-10); HEMATOCRIT 32 % (40-54); HEMOGLOBIN 10.6 G/DL (13.3-17.7); LYMPHOCYTES # (AUTO) 0.6 X 10^3 (1.0-4.0); LYMPHOCYTES % (AUTO) 7 % (12-44); MEAN CORPUSCULAR HEMOGLOBIN 29 PG (25-34); MEAN CORPUSCULAR HGB CONC 33 G/DL (32-36); MEAN CORPUSCULAR VOLUME 88 FL (80-99); MEAN PLATELET VOLUME 11.3 FL (7.4-10.4); MONOCYTES # (AUTO) 0.7 X 10^3 (0.0-1.0); MONOCYTES % (AUTO) 7 % (0-12); NEUTROPHILS # (AUTO) 8.4 X 10^3 (1.8-7.8); NEUTROPHILS % (AUTO) 86 % (42-75); PLATELET COUNT 189 10^3/uL (130-400); RED CELL DISTRIBUTION WIDTH 17.6 % (10.0-14.5); WHITE BLOOD COUNT 9.8 10^3/uL (4.3-11.0)
[2018-04-15 06:21] LABS: ALBUMIN 2.3 GM/DL (3.2-4.5); BILIRUBIN,TOTAL 0.8 MG/DL (0.1-1.0); CALCIUM 8.4 MG/DL (8.5-10.1); CREATININE SERUM 2.57 MG/DL (0.60-1.30); MAGNESIUM 1.8 MG/DL (1.8-2.4); POTASSIUM 4.4 MMOL/L (3.6-5.0); TOTAL PROTEIN 5.5 GM/DL (6.4-8.2)
--- NOTE | 2018-04-15 06:25 | NUR ---
c/o pain to legs level 8/10 on numeric scale, Lortab 10 1 tab po given
[2018-04-15 06:51] LABS: EOSINOPHILS % (MANUAL) 1 %; LYMPHOCYTES % (MANUAL) 8 %; MONOCYTES % (MANUAL) 7 %; NEUTROPHILS % (MANUAL) 84 %
--- NOTE | 2018-04-15 06:55 | NUR ---
resting quietly in bed, pain level 0/10 on flacc scale
[2018-04-15] MEDS: inSUlin ASPART (NovoLOG) 1 UNIT/0.01 ML (CHARGE PER UNIT) SC SCH ×4 (07:01→20:45)
--- NOTE | 2018-04-15 07:45 | NUR ---
bedside report given to CORY GAMINO
--- NOTE | 2018-04-15 08:24 | Cardiology Progress Note ---
Subjective Date Seen by Provider: Apr 15, 2018 Time Seen by Provider: 08:23 Subjective/Events-last exam patient is sitting in bed, feeling better, having few episodes of near-syncope, the second episode this week. No full syncope was reported Review of Systems General: No Chills, No Night Sweats; Fatigue; No Malaise, No Appetite, No Other HEENT: No Head Aches, No Visual Changes, No Eye Pain, No Ear Pain, No Dysphasia , No Sinus Congestion, No Post Nasal Drip, No Sore Throat, No Other Pulmonary: No Dyspnea, No Cough, No Pleuritic Chest Pain, No Other Cardiovascular: No: Chest Pain, Palpitations, Orthopnea, Paroxysmal Noc. Dyspnea, Edema, Lt Headedness, Other Objective-Cardiology Exam Last Set of Vital Signs Vital Signs 04/10/18 04/15/18 00:04 05:46 Temp 97.2 Pulse 67 Resp 20 B/P (MAP) 128/81 (97) Pulse Ox 97 O2 Delivery Room Air FiO2 21 Capillary Refill : I&O Intake and Output 04/14/18 23:59 Intake Total 2200 ml Output Total 800 ml Balance 1400 ml Intake Oral 2200 ml Output Urine Total 800 ml Bladder Scan Volume Amount 224 ml 425 ml General: Alert, Oriented X3, Cooperative HEENT: Atraumatic, PERRLA Neck: Supple, No JVD, No Thyromegaly Lungs: Normal Air Movement, Other (rhonchi) Heart: Regular Rate, Normal S1, Normal S2, Other (systolic murmur at the left sternal border) Abdomen: Normal Bowel Sounds, Soft, No Tenderness, No Hepatosplenomegaly, No Masses Extremities: No Clubbing, No Cyanosis, No Edema, No Tenderness/Swelling, Other (BKA) Skin: No Rashes, No Breakdown, No Significant Lesion Neuro: Normal Speech, Normal Tone, Sensation Intact Psych/Mental Status: Mental Status NL, Mood NL Results Lab Laboratory Tests 04/15/18 05:40 A/P-Cardiology Admission Diagnosis Peripheral arterial disease Coronary artery disease Hypertension Hyperlipidemia Assessment/Plan Left BKA done on April 04, 2018 secondary to nonhealing foot ulcer, history of right toes amputation in the past. Extensive peripheral arterial disease as described below. Recovering slowly. Acute on chronic renal failure, has been followed by a casing blower, I will repeat metabolic profile in a.m. Coronary artery disease, history of CABG 4 in 2008 with cardiac catheterization June 02, [address] Arvizu revealing severe three-vessel [place] coronary artery disease with non-bypassed RCA, patent OSBORNE to LAD, patent vein graft to first diag, patent vein graft to first OM. There was occluded jump graft to the second obtuse marginal branch with successful PCI using bare-metal vision stent 3.0 x 28 mm to the second OM. At that time was reported patient staged intervention to the right and third OM branch after gallbladder removal by Dr. Arvizu, had stress test done at [facility] within then and no further intervention was made. Patient was to be scheduled for [facility] with intervention after healing of Left foot ulcer, however, patient did not follow up, Cardiac catheterization was carried out by Dr. Busch in January 2015 and reported as patent OSBORNE to the LAD vein graft to the diagonal artery and vein graft to the obtuse marginal artery, small vessel disease distally, the right coronary artery has severe diffuse disease, Dr. Busch felt that it is high risk for intervention at this time, medical therapy is recommended. Patient will require significant amount of stenting with limited benefit. Continue to monitor at this time Significant peripheral arterial disease, multiple intervention by Dr. Beebe in the past. Extensive workup in the past, angiogram was done on May 30, 2016 which showed on the right side subtotal occlusion of the anterior tibial artery , severe disease at the posterior tibial and peroneal artery and distal popliteal artery successful balloon angioplasty to the anterior tibial artery using 2.0 then 3.0 balloon with excellent results, balloon angioplasty to the popliteal artery using Lutonix 4.018 mm with excellent results. On July 02, 2016 patient was noted to have total occlusion of the anterior tibial artery of the left leg with balloon angioplasty using 3x100 balloon with excellent results. Return on July 04, 2016 and underwent intervention on the right lower extremity using Lutonix to the distal SFA 6 time 150 mm with excellent results. Patient has small vessel disease distally. On May 01, 2017 after having a nonhealing wound to the left heel. Was found to have total occlusion of the left anterior tibial artery, complex intervention using multiple wires and balloons with excellent results. Repeat angiogram was done on January 01, 2018 showing total occlusion of the anterior tibial artery with unsuccessful attempt to cross the lesion, I was able to do balloon angioplasty for severe disease of the peroneal artery. Patient still have severe stenosis at the distal SFA. Patient was referred to [facility], underwent angiogram on January 10, 2018 had left SFA angioplasty with drug-coated balloon, atherectomy of the anterior tibial artery with jet stream followed by angioplasty of the anterior tibial artery and peroneal artery with drug-coated balloons, angioplasty to the dorsalis pedis. Unsuccessful posterior tibial artery cannulation. His peripheral arterial disease In the small vessel at the right lower extremity is deemed inoperable at this time. s/p Left BKA Congestive heart failure, ischemic cardiomyopathy, LV systolic dysfunction. Persistent cardiomyopathy with ejection fraction 20-25 percent, last echocardiogram was done in July 2017. History of single-chamber ICD implant for primary prevention. Maintained on beta kathrin. Unable to tolerate NORMAN-I or ARB secondary to renal function. I will interrogate his ICD Paroxysmal atrial fibrillation-patient noted to have episodes of atrial fibrillation on his first ICD interrogation, longest episode up to one hour. continue on current medication including amiodarone and monitor Episodes of bradycardia, baseline ICD pacing rate was increased from 40-50. Continue to monitor Tobaccoism, reports recently quit smoking. Educated on importance of smoking cessation. History of port placement on the right side, status post retrieval after fractured port in June 2016 Hypertension, continue to monitor blood pressure Hyperlipidemia, was started on Lipitor 80 mg daily. Continue to monitor Diabetes mellitus, followed and monitored by primary care physician. Mild bilateral nonobstructive carotid artery stenosis, last carotid ultrasound was done in December 2017, continue to monitor Clinical Quality Measures DVT/VTE Risk/Contraindication: Risk Factor Score Per Nursin RFS Level Per Nursing on Admit: 4+=Very High JORDEN GREER MD Apr 15, 2018 08:24
[2018-04-15] MEDS: ISOSORBIDE MONONITRATE 30 MG (IMDUR) TAB PO SCH (08:29)
[2018-04-15] MEDS: AMIODARONE 200 MG (CORDARONE) TAB PO SCH (08:29)
[2018-04-15] MEDS: CARVEDILOL 3.125 MG (COREG) TABLET PO SCH ×2 (08:31→20:51)
[2018-04-15 08:39] VITALS: BP 117/78
--- NOTE | 2018-04-15 08:43 | PM&R Progress Note ---
Subjective HPI/CC On Admission Date Seen by Provider: Apr 15, 2018 Time Seen by Provider: 08:20 Subjective/Events-last exam Patient doing okay Has vague issues that occur nights before that he discusses today Approves for straight catheter twice daily as needed per urology recommendation Patient working towards independent ADLs in order to return home Labs are stable with creatinine of 2.5 much improved Is drowsy today so we'll decrease his hydrocodone from 10 to 5mg every 6 Review of Systems General: Fatigue Musculoskeletal: leg pain Objective Exam Vital Signs Vital Signs Date Time Temp Pulse Resp B/P (MAP) Pulse Ox O2 Delivery O2 Flow Rate FiO2 04/15/18 09:59 Room Air 04/15/18 08:39 62 18 117/78 (91) 96 04/15/18 05:46 97.2 04/10/18 00:04 21 Capillary Refill : General Appearance: No Apparent Distress, WD/WN, Chronically ill Respiratory: Chest Non Tender, Lungs Clear, Normal Breath Sounds, No Accessory Muscle Use, No Respiratory Distress Cardiovascular: Regular Rate, Rhythm, No Edema, No Gallop, No JVD, No Murmur, Normal Peripheral Pulses Neurologic/Psychiatric: Alert, Oriented x3, No Motor/Sensory Deficits, Normal Mood/Affect Results/Procedures Lab Laboratory Tests 04/15/18 05:40 Patient resulted labs reviewed. Assessment/Plan Assessment and Plan Assess & Plan/Chief Complaint Assessment: Infected left foot diabetic ulcer s/p left below the knee amputation by Dr. Chicas POD # 9 Congestive heart failure with elevated BNP resolved Chronic renal failure and not a dialysis candidate due to his refusal if that becomes a necessity Severe peripheral vascular disease failed intervention for revascularization of the lower extremities and failed wound care for 4 years CAD previous bypass surgery Hypertension Hyperlipidemia Smoker Gastroparesis with nausea and bloating responding to Reglan by mouth before meals/at bedtime Urinary retention receiving in and out catheter Plan: Monitor creatinine DVT prophylaxis Left below the knee amputation rehab training Monitor BP Decrease Dilaudid Decrease Hydrocodone to 5mg Q6hrs Reglan before meals/at bedtime Urinary retention management Levaquin renal dosed for infected incision Diagnosis/Problems Diagnosis/Problems (1) Amput below knee, unilat Status: Acute (2) CKD (chronic kidney disease) stage 3, GFR 30-59 ml/min Status: Chronic (3) Anemia in chronic kidney disease Status: Chronic (4) Ischemic cardiomyopathy Status: Chronic (5) Essential (primary) hypertension Status: Chronic (6) PVD (peripheral vascular disease) Status: Chronic (7) Dyspnea Status: Acute Qualifiers: Dyspnea type: unspecified Qualified Codes: R06.00 - Dyspnea, unspecified (8) Urinary retention Status: Acute (9) Insulin dependent diabetes mellitus Status: Chronic (10) Gastroparesis Status: Chronic (11) Infected incision Status: Acute Clinical Quality Measures Admission Status Admission Dx Assessment: Infected left foot diabetic ulcer s/p left below the knee amputation by Dr. Chicas POD # 4 Congestive heart failure with elevated BNP Chronic renal failure and not a dialysis candidate due to his refusal if that becomes a necessity Severe peripheral vascular disease failed intervention for revascularization of the lower extremities and failed wound care for 4 years CAD previous bypass surgery Hypertension Hyperlipidemia Smoker Plan: Monitor creatinine DVT prophylaxis Left below the knee amputation rehab training DVT/VTE Risk/Contraindication: Risk Factor Score Per Nursin RFS Level Per Nursing on Admit: 4+=Very High ABIODUN SOLANO DO Apr 15, 2018 08:43
--- NOTE | 2018-04-15 10:18 | Progress Note-Urology ---
Progress Note-Urology Progress Notes/Assess & Plan Progress/Assessment & Plan HAS PVR GREATER THAN 300. PLAN INCREASE URECHOLINE TO 50 AC AND HS Final Diagnosis URINE RETENTION ANGELY MEEHAN MD Apr 15, 2018 10:18
--- NOTE | 2018-04-15 11:27 | Occupational Ther Daily Note ---
OT Current Status-Daily Note Subjective Pt states that " I am very sleepy today." Pain Numeric Pain Scale: 5-Moderate Pain Location Body Site: Generalized Pain Description: Ache, Sharp Mental Status/Objective Patient Orientation: Person, Place, Time Therapy Code Descriptions/Definitions Functional [place]em Measure: 0=Not Assessed/NA 4=Minimal Assistance 1=Total Assistance 5=Supervision or Setup 2=Maximal Assistance 6=Modified Stem 3=Moderate Assistance 7=Complete Stem ADL-Treatment Patient participated in Shower/bathing activity . Pt undress UB clothings I dependently & LB Clothings with Min A, Func transfers with SBA from bed to w/c & from w/c to shower bench . Pt applied shampoo & later wash front ,back of arms & legs, abdomen ,chest, perineal & buttocks , front & back of neck, hairs & face. pt dry his whole body. Lf BK Stump was been covered with waterproof paper . Pt dress UB Clothings Independently & LB clothings with Mod-min A.Participated 15 min on arm Restorator associate buyer to strengthen BUE to increase strength, endurance & activity tolernce.. Therapy Code Descriptions/Definitions Functional [place]em Measure: 0=Not Assessed/NA 4=Minimal Assistance 1=Total Assistance 5=Supervision or Setup 2=Maximal Assistance 6=Modified Stem 3=Moderate Assistance 7=Complete Stem Therapy Quality Codes: 6 Independent with activity with or without an assistive device 5 Patient requires set up or clean up by helper. Patient completes activity by themselves 4 Supervision or touching assist (CGA). [place] provide cues , steadying assist 3 The helper provides less than half the effort to complete the activity 2 The helper provides more than half the effort to complete the activity 1 Dependent. The helper does all the effort to complete an activity 7 Patient refused to complete or attempt activity 9 The patient did not perform the activity before the current illness or injury 88 Not attempted due to Medical conditions or safety concerns Eating (FIM): 7 Eating (QC): 6 Grooming (FIM): 6 Oral Hygiene (QC): 6 Bathing (FIM): 5 Bathing Location: L Arm, R Arm, L Upper Leg, R Upper Leg, R Lower Leg ( including foot), Chest, Abdomen, Buttocks, Perineal Area Shower/Bathe Self (QC): 5 Upper Body (FIM): 6 Upper Body Dressing (QC): 6 Lower Body Dressing (FIM): 5 Lower Body Dressing (QC): 5 Toileting (FIM): 5 Toileting Hygiene (QC): 5 Transfers (B, C, W/C) (FIM): 6 Toilet/Commode Transfer (FIM): 6 Toilet Transfer (QC): 5 Shower Transfer(FIM): 5 Education OT Patient Education: Correct positioning, Safety issues Teaching Recipient: Patient Teaching Methods: Demonstration, Discussion Response to Teaching: Verbalize Understanding, Return Demonstration OT Short Term Goals Short Term Goals Time Frame: Apr 21, 2018 Eating(FIM): 7 Grooming(FIM): 7 Bathing(FIM): 5 Bathing Location: L Arm, R Arm, L Upper Leg, R Upper Leg, L Lower Leg ( including foot), R Lower Leg (including foot), Chest, Abdomen, Buttocks, Perineal Area Upper Body Dressing(FIM): 7 Lower Body Dressing(FIM): 4 Toileting(FIM): 4 (with transfer bench) Transfers (B,C,W/C) (FIM): 5 Toilet/Commode Transfer(FIM): 4 Additional Short Term Goals: 1-Demonstrate ADL Tasks, 2-Verbalize Understanding , 3-ImproveStrength/Vickie 1=Demonstrate adherence to instructed precautions during ADL tasks. 2=Patient will verbalize/demonstrate understanding of assistive devices/ modifications for ADL. 3=Patient will improve strength/tolerance for activity to enable patient to perform ADL's. OT School Manager Goals Fpc Goals Time Frame: May 05, 2018 Eating (FIM): 7 Eating (QC): 6 Groomin Oral Hygiene (QC): 6 Bathing(FIM): 6 Bathing Location: L Arm, R Arm, L Upper Leg, R Upper Leg, L Lower Leg ( including foot), R Lower Leg (including foot), Chest, Abdomen, Buttocks, Perineal Area Shower/Bathe Self (QC): 6 Upper Body Dressing(FIM): 7 Upper Body Dressing (QC): 6 Lower Body Dressing(FIM): 5 Lower Body Dressing (QC): 5 Toileting Hygiene (QC): 6 Transfers (B,C,W/C) (FIM): 5 Toilet/Commode Transfer(FIM): 6 Toilet/Commode Transfer (QC): 5 Shower Transfer(FIM): 6 Additional Goals: 1-Demonstrate ADL Tasks, 2-Verbalize Understanding, 3- ImproveStrength/Vickie 1=Demonstrate adherence to instructed precautions during ADL tasks. 2=Patient will verbalize/demonstrate understanding of assistive devices/ modifications for ADL. 3=Patient will improve strength/tolerance for activity to enable patient to perform ADL's. OT Education/Plan Problem List/Assessment Assessment: Decreased Activ Tolerance, Decreased Safety Aware, Decreased UE Strength, Impaired Bed Mobility, Impaired Funct Balance, Impaired Self-Care Skills Discharge Recommendations Plan/Recommendations: Continue POC Therapy D/C Recommendations: Home Independently Equpiment Recommendations-D/C: Bath Chair, Extended Shower Sprayer, Roads Supervisor Treatment Plan/Plan of Care Treatment,Training & Education: Yes Patient would benefit from OT for education, treatment and training to promote independence in ADL's, mobility, safety and/or upper extremity function for ADL' s. Plan of Care: ADL Retraining, Cognitive Retraining, Functional Mobility, Group Exercise/Act as Ind, UE Funct Exercise/Act Treatment Duration: May 05, 2018 Frequency: At least 5 of 7 days/Wk (IRF) Estimated Hrs Per Day: 1.5 hours per day Agreement: Yes Rehab Potential: Good Time/GCodes Start Time: 08:00 Stop Time: 09:30 Total Time Billed (hr/min): 90 Billed Treatment Time 1, ADL x 60 min., Ex. x30 min Total 90 minutes GITA GASPAR OT Apr 15, 2018 11:27
--- NOTE | 2018-04-15 11:55 | Physical Therapy Daily Note ---
PT Daily Note-Current Subjective Patient in wheelchair pre tx, agrees to PT, has pain of 5/10 in left leg. Appearance Patient in bed post tx with nurse call, phone, tray, all needs met. Mental Status Patient Orientation: Person, Place, Situation Transfers Therapy Code Descriptions/Definitions Functional [place] Measure: 0=Not Assessed/NA 4=Minimal Assistance 1=Total Assistance 5=Supervision or Setup 2=Maximal Assistance 6=Modified [place] 3=Moderate Assistance 7=Complete [place] Therapy Quality Codes: 6 Independent with activity with or without an assistive device 5 Patient requires set up or clean up by helper. Patient completes activity by themselves 4 Supervision or touching assist (CGA). [place] provide cues , steadying assist 3 The helper provides less than half the effort to complete the activity 2 The helper provides more than half the effort to complete the activity 1 Dependent. The helper does all the effort to complete an activity 7 Patient refused to complete or attempt activity 9 The patient did not perform the activity before the current illness or injury 88 Not attempted due to Medical conditions or safety concerns Transfers (B, C, W/C) (FIM): 5 Scootin Rollin Supine to/from Sit: 6 Sit to/from Stand: 5 Bed to/from Chair: 5 Weight Bearing Right Lower Extremity: Right Weight Bearing/Tolerated Left Lower Extremity: Left (BKA) Gait Training Gait (FIM): 1 Distance: 10'x2, 15' Gait Level of Assist: 4 Gait Persons Needed: 1 Gait Assistive Device: FWW Slow ambulation, better foot clearance, needs to rest after a couple of steps, unsteady but did not need assist from therapist to maintain balance. Wheelchair Training Does the Pt Use a Wheelchair?: Yes Wheelchair (FIM): 6 Distance: 150'x2 Type of Wheelchair: Manual Exercises NuStep Minutes: 15 NuStep Workload: 5 Treatments bed mobility and transfers, ambulation, functional strengthening, wheelchair mobility Assessment Current Status: Fair Progress improved ambulation PT Short Term Goals Short Term Goals Time Frame: Apr 14, 2018 Transfers (B,C,W/C) (FIM): 5 Gait (FIM): 2 Distance (FIM): 9=276-46 ft Gait Distance Comment: 25 Gait Level of Assist: 4 Gait Assistive Device: FWW Wheelchair (FIM): 5 Wheelchair distance (FIM): 3=150 ft Wheelchair Distance: 150'x2 PT Senior Living Goals Field Assistant Goals PT Field Assistant Goals Time Frame: Apr 30, 2018 Transfers (B,C,W/C) (FIM): 6 Sit to Lying (QC): 6 Lying-Sitting on Side/Bed(QC): 6 Sit to Stand (QC): 6 Rollin Roll Left to Right (QC): 6 Chair/Qcp-on-Yinkb Xfer(QC): 6 Car Transfer (QC): 5 Does the Patient Walk: No and Walking Goal IS indicated Gait (FIM): 2 Gait distance (FIM): 1=381-92 ft Distance: 25 ft Walk 10 feet (QC): 6 Walk 10ft-Uneven Surface(QC): 6 Walk 50ft with 2 Turns (QC): 88 Walk 150 ft (QC): 88 Gait Level of Assist: 6 Gait Assistive Device: FWW Does the Pt use WC or Scooter?: Yes Wheelchair (FIM): 6 Wheelchair distance (FIM): 3=150 ft Wheel 50 feet with 2 turns (QC: 6 Stairs (FIM): 5 (household; modified scooting on his buttock) # of Steps: 4 1 Step (curb) (QC): 6 4 Steps (QC): 6 12 Steps (QC): 88 Picking up an Object (QC): 6 (with a 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) PT Plan Problem List Problem List: Activity Tolerance, Functional Strength, Safety, Balance, Gait, Transfer, Bed Mobility, ROM Treatment/Plan Treatment Plan: Continue Plan of Care Treatment Plan: Bed Mobility, Education, Functional Activity Vickie, Functional Strength, Group Therapy, Gait, Safety, Therapeutic Exercise, Transfers Treatment Duration: Apr 30, 2018 Frequency: At least 5 of 7 days/Wk (IRF) Estimated Hrs Per Day: 1.5 hours per day Patient and/or Family Agrees t: Yes Safety Risks/Education Patient Education: Gait Training, Transfer Techniques, Correct Positioning, W/ C Management, Safety Issues Teaching Recipient: Patient Teaching Methods: Demonstration, Discussion Response to Teaching: Reinforcement Needed Time/GCodes Time In: 1100 Time Out: 1200 Total Billed Treatment Time: 60 Total Billed Treatment 1 visit GT 30' EX 15' WCH 15' ALEJANDRA DEVINE PT Apr 15, 2018 11:54
[2018-04-15] MEDS: ENOXAPARIN 40 MG/0.4 ML (LOVENOX) SYR SC SCH (12:04)
--- NOTE | 2018-04-15 12:19 | NUR ---
Drowsy this AM. Decrease Lortab to 5 MG PO Q6H PRN per Dr. Colon.
[2018-04-15] MEDS: POLYETHYLENE GLYCOL 17 GM (MIRALAX) PACK PO PRN (12:53)
[2018-04-15] MEDS: HYDROcodone/APAP 5 MG/325 MG (LORTAB) TAB PO PRN ×2 (12:53→19:45)
--- NOTE | 2018-04-15 13:03 | NUR ---
No BM noted since 04/10/18. 34 GM of Miralax given per orders.
--- NOTE | 2018-04-15 13:55 | Physical Therapy Daily Note ---
PT Daily Note-Current Subjective Patient in bed pre tx, agrees to PT, 4/10 pain in left leg. Patient very drowsy. Appearance Patient in bed post tx with nurse call, phone, tray, all needs met. Mental Status Patient Orientation: Person, Place, Situation Transfers Therapy Code Descriptions/Definitions Functional [place] Measure: 0=Not Assessed/NA 4=Minimal Assistance 1=Total Assistance 5=Supervision or Setup 2=Maximal Assistance 6=Modified [place] 3=Moderate Assistance 7=Complete [place] Therapy Quality Codes: 6 Independent with activity with or without an assistive device 5 Patient requires set up or clean up by helper. Patient completes activity by themselves 4 Supervision or touching assist (CGA). [place] provide cues , steadying assist 3 The helper provides less than half the effort to complete the activity 2 The helper provides more than half the effort to complete the activity 1 Dependent. The helper does all the effort to complete an activity 7 Patient refused to complete or attempt activity 9 The patient did not perform the activity before the current illness or injury 88 Not attempted due to Medical conditions or safety concerns Weight Bearing Right Lower Extremity: Right Weight Bearing/Tolerated Left Lower Extremity: Left (BKA) Exercises Supine Ex: Ankle pumps (RLE), Quad Set, Glut sets, Heel Slides, Straight leg raise, Hip abd/add Supine Reps: 20 PROM BLE and prolonged left knee extension stretch Treatments BLE strengthening and ROM Assessment Current Status: Fair Progress Patient very drowsy, fall asleep continuously during treatment. PT Short Term Goals Short Term Goals Time Frame: Apr 14, 2018 Transfers (B,C,W/C) (FIM): 5 Gait (FIM): 2 Distance (FIM): 8=275-59 ft Gait Distance Comment: 25 Gait Level of Assist: 4 Gait Assistive Device: FWW Wheelchair (FIM): 5 Wheelchair distance (FIM): 3=150 ft Wheelchair Distance: 150'x2 PT Longterm Goals Longterm Goals PT Clinical Cytogeneticist Scientist Goals Time Frame: Apr 30, 2018 Transfers (B,C,W/C) (FIM): 6 Sit to Lying (QC): 6 Lying-Sitting on Side/Bed(QC): 6 Sit to Stand (QC): 6 Rollin Roll Left to Right (QC): 6 Chair/Woi-hv-Ttyjm Xfer(QC): 6 Car Transfer (QC): 5 Does the Patient Walk: No and Walking Goal IS indicated Gait (FIM): 2 Gait distance (FIM): 5=844-92 ft Distance: 25 ft Walk 10 feet (QC): 6 Walk 10ft-Uneven Surface(QC): 6 Walk 50ft with 2 Turns (QC): 88 Walk 150 ft (QC): 88 Gait Level of Assist: 6 Gait Assistive Device: FWW Does the Pt use WC or Scooter?: Yes Wheelchair (FIM): 6 Wheelchair distance (FIM): 3=150 ft Wheel 50 feet with 2 turns (QC: 6 Stairs (FIM): 5 (household; modified scooting on his buttock) # of Steps: 4 1 Step (curb) (QC): 6 4 Steps (QC): 6 12 Steps (QC): 88 Picking up an Object (QC): 6 (with a economics instructor) PT Plan Problem List Problem List: Activity Tolerance, Functional Strength, Safety, Balance, Gait, Transfer, Bed Mobility, ROM Treatment/Plan Treatment Plan: Continue Plan of Care Treatment Plan: Bed Mobility, Education, Functional Activity Vickie, Functional Strength, Group Therapy, Gait, Safety, Therapeutic Exercise, Transfers Treatment Duration: Apr 30, 2018 Frequency: At least 5 of 7 days/Wk (IRF) Estimated Hrs Per Day: 1.5 hours per day Patient and/or Family Agrees t: Yes Safety Risks/Education Patient Education: Correct Positioning, Safety Issues Teaching Recipient: Patient Teaching Methods: Demonstration, Discussion Response to Teaching: Reinforcement Needed Time/GCodes Time In: 1330 Time Out: 1400 Total Billed Treatment Time: 30 Total Billed Treatment 1 visit EX 30' ALEJANDRA DEVINE PT Apr 15, 2018 13:55
[2018-04-15 16:18] VITALS: BP 125/76
[2018-04-15 16:23] VITALS: BP 125/76
[2018-04-15] MEDS: TAMSULOSIN 0.4 MG (FLOMAX) CAP PO SCH (16:40)
--- NOTE | 2018-04-15 18:12 | NUR ---
Patient has not voided all shift. Attempted to void on BSC... Unable to do so. Bladder scan done and showing 222mls. Dr. Colon notified. Orders for a CBC and CMP in the AM... and continue to monitor.
--- NOTE | 2018-04-15 18:27 | Progress Note ---
Subjective Date Seen by a Provider: Apr 15, 2018 Time Seen by a Provider: 14:00 Subjective/Events-last exam Patient doing okay. Leg less tender. No new complaints. Denies n/v fever sweats chills shortness of breath or chest pain. Objective Exam Vital Signs Date Time Temp Pulse Resp B/P (MAP) Pulse Ox O2 Delivery O2 Flow Rate FiO2 04/15/18 16:23 97.8 58 16 125/76 (92) 92 Room Air 04/15/18 16:18 58 93 04/15/18 16:18 93 Room Air 04/15/18 09:59 Room Air 04/15/18 08:39 62 18 117/78 (91) 96 04/15/18 05:46 97.2 67 20 128/81 (97) 97 Room Air 04/14/18 21:40 65 18 132/82 (99) 95 Room Air 04/14/18 20:00 Room Air 04/14/18 19:23 93 Room Air I & O 04/15/18 07:00 Intake Total 2225 ml Output Total 1300 ml Balance 925 ml Capillary Refill : General Appearance: No Apparent Distress, WD/WN, Chronically ill HEENT: PERRL/EOMI, Normal ENT Inspection Neck: Full Range of Motion, Normal Inspection, Non Tender, Supple Respiratory: Chest Non Tender, No Accessory Muscle Use, No Respiratory Distress Cardiovascular: Regular Rate, Rhythm, No Edema, No Gallop, No JVD, No Murmur, Normal Peripheral Pulses Gastrointestinal: normal bowel sounds, non tender, soft Extremity: Other (Left BKA incision improving erythema. Superfical burn is improving. Less tender) Neurologic/Psychiatric: Alert, Oriented x3, No Motor/Sensory Deficits, Normal Mood/Affect Skin: Normal Color, Warm/Dry Lymphatic: No Adenopathy Results Lab Laboratory Tests 04/14/18 20:14: Glucometer 153H 04/15/18 04:58: Glucometer 197H 04/15/18 05:40: White Blood Count 9.8, Red Blood Count 3.69L, Hemoglobin 10.6L, Hematocrit 32L, Mean Corpuscular Volume 88, Mean Corpuscular Hemoglobin 29, Mean Corpuscular Hemoglobin Concent 33, Red Cell Distribution Width 17.6H, Platelet Count 189, Mean Platelet Volume 11.3H, Neutrophils (%) (Auto) 86H, Lymphocytes (%) (Auto) 7L, Monocytes (%) (Auto) 7, Eosinophils (%) (Auto) 1, Basophils (%) (Auto) 0, Neutrophils # (Auto) 8.4H, Lymphocytes # (Auto) 0.6L, Monocytes # (Auto) 0.7, Eosinophils # (Auto) 0.1, Basophils # (Auto) 0.0, Neutrophils % (Manual) 84, Lymphocytes % (Manual) 8, Monocytes % (Manual) 7, Eosinophils % (Manual) 1, Sodium Level 133L, Potassium Level 4.4, Chloride Level 102, Carbon Dioxide Level 21, Anion Gap 10, Blood Urea Nitrogen 45H, Creatinine 2.57#H, Estimat Glomerular Filtration Rate 26, BUN/Creatinine Ratio 18, Glucose Level 184H, Calcium Level 8.4L, Corrected Calcium 9.8, Magnesium Level 1.8, Total Bilirubin 0.8, Aspartate Amino Transf (AST/SGOT) 22, Alanine Aminotransferase (ALT/SGPT) 16, Alkaline Phosphatase 109, Total Protein 5.5L, Albumin 2.3L 04/15/18 10:53: Glucometer 113H 04/15/18 16:22: Glucometer 131H Assessment/Plan Assessment/Plan Assessment/Plan s/p left bka dressing change daily pain control. Continue Levaquin 750mg daily. Will continue to monitor stump. Superficial burn left knee, will continue to monitor. Clinical Quality Measures DVT/VTE Risk/Contraindication: Risk Factor Score Per Nursin RFS Level Per Nursing on Admit: 4+=Very High LEIGH ANN FUCHS DO Apr 15, 2018 18:27
[2018-04-15] MEDS: ATORVASTATIN 80 MG (LIPITOR) TABLET PO SCH (20:52)
[2018-04-15] MEDS: MELATONIN 3 MG TABLET PO PRN (20:52)
[2018-04-15] MEDS: ALPRAZolam 0.25 MG (XANAX) TAB PO PRN (20:52)
[2018-04-15] MEDS: POLYETHYLENE GLYCOL 17 GM (MIRALAX) PACK PO SCH (20:56)
[2018-04-15] MEDS: guaiFENesin/CODEINE (ROBITUSSIN AC) 10ML UDC PO PRN (22:45)
[2018-04-16] MEDS ORDERED: LIDOCAINE UROJET 2% GEL 10 ML PKG ONE (01:27)
--- NOTE | 2018-04-16 01:40 | NUR ---
Patient straight cathed using sterile technique & 225 ml emily colored urine was obtained. Patient tolerated procedure well.
[2018-04-16] MEDS: HYDROcodone/APAP 5 MG/325 MG (LORTAB) TAB PO PRN ×3 (01:59→20:26)
[2018-04-16 05:20] LABS: BASOPHILS % (AUTO) 0 % (0-10); EOSINOPHILS # (AUTO) 0.1 10^3/uL (0.0-0.3); EOSINOPHILS % (AUTO) 1 % (0-10); HEMATOCRIT 32 % (40-54); HEMOGLOBIN 10.5 G/DL (13.3-17.7); LYMPHOCYTES # (AUTO) 0.7 X 10^3 (1.0-4.0); LYMPHOCYTES % (AUTO) 8 % (12-44); MEAN CORPUSCULAR HEMOGLOBIN 29 PG (25-34); MEAN CORPUSCULAR HGB CONC 33 G/DL (32-36); MEAN CORPUSCULAR VOLUME 88 FL (80-99); MEAN PLATELET VOLUME 11.2 FL (7.4-10.4); MONOCYTES # (AUTO) 0.6 X 10^3 (0.0-1.0); MONOCYTES % (AUTO) 7 % (0-12); NEUTROPHILS # (AUTO) 7.4 X 10^3 (1.8-7.8); NEUTROPHILS % (AUTO) 84 % (42-75); PLATELET COUNT 180 10^3/uL (130-400); RED CELL DISTRIBUTION WIDTH 17.4 % (10.0-14.5); WHITE BLOOD COUNT 8.8 10^3/uL (4.3-11.0)
[2018-04-16 05:53] LABS: ALBUMIN 2.3 GM/DL (3.2-4.5); BILIRUBIN,TOTAL 1.1 MG/DL (0.1-1.0); CALCIUM 8.5 MG/DL (8.5-10.1); CREATININE SERUM 2.71 MG/DL (0.60-1.30); POTASSIUM 4.6 MMOL/L (3.6-5.0); TOTAL PROTEIN 5.9 GM/DL (6.4-8.2)
[2018-04-16 05:56] VITALS: BP 110/64
[2018-04-16] MEDS: METOCLOPRAMIDE 10 MG (REGLAN) TAB PO SCH ×4 (06:35→22:05)
[2018-04-16] MEDS: inSUlin ASPART (NovoLOG) 1 UNIT/0.01 ML (CHARGE PER UNIT) SC SCH ×4 (06:36→20:33)
[2018-04-16] MEDS: BETHANECHOL 25 MG (URECHOLINE) TAB PO SCH ×4 (06:36→20:25)
[2018-04-16] MEDS: LEVOTHYROXINE 100 MCG (LEVOTHROID) TAB PO SCH (06:36)
--- NOTE | 2018-04-16 08:00 | NUR ---
DENIED NEED TO VOID ALL DAY. BLADDER SCAN SHOWS [address] SOLANO INFORMED AND STATES IS NOT ALARMED BY OUTPUT AND CONTINUE TO MONITOR ONLY.
--- NOTE | 2018-04-16 08:31 | Cardiology Progress Note ---
Subjective Date Seen by Provider: Apr 16, 2018 Time Seen by Provider: 08:30 Subjective/Events-last exam Patient sitting up at bed side, no new complaints. Denies any chest pain or dyspnea. Objective-Cardiology Exam Last Set of Vital Signs Vital Signs 04/10/18 04/16/18 00:04 05:56 Temp 98.0 Pulse 56 Resp 16 B/P (MAP) 110/64 (79) Pulse Ox 99 O2 Delivery Room Air FiO2 21 Capillary Refill : I&O Intake and Output 04/16/18 00:00 Intake Total 825 ml Output Total 650 ml Balance 175 ml Intake Oral 825 ml Output Urine Total 650 ml Bladder Scan Volume Amount 472 ml 222 ml General: Alert, Oriented X3, Cooperative HEENT: Atraumatic, PERRLA Neck: Supple, No JVD, No Thyromegaly Lungs: Normal Air Movement, Other (rhonchi) Heart: Regular Rate, Normal S1, Normal S2, Other (systolic murmur at the left sternal border) Abdomen: Normal Bowel Sounds, Soft, No Tenderness, No Hepatosplenomegaly, No Masses Extremities: No Clubbing, No Cyanosis, No Edema, No Tenderness/Swelling, Other (BKA) Skin: No Rashes, No Breakdown, No Significant Lesion Neuro: Normal Speech, Normal Tone, Sensation Intact Psych/Mental Status: Mental Status NL, Mood NL Results Lab Laboratory Tests 04/16/18 05:00 A/P-Cardiology Admission Diagnosis Peripheral arterial disease Coronary artery disease Hypertension Hyperlipidemia Assessment/Plan Left BKA done on April 04, 2018 secondary to nonhealing foot ulcer, history of right toes amputation in the past. Extensive peripheral arterial disease as described below. Recovering slowly. Acute on chronic renal failure, has been followed by a consulting sme, I will repeat metabolic profile in a.m. Coronary artery disease, history of CABG 4 in 2008 with cardiac catheterization June 02, [address] Arvizu revealing severe three-vessel nikolai coronary artery disease with non-bypassed RCA, patent OSBORNE to LAD, patent vein graft to first diag, patent vein graft to first OM. There was occluded jump graft to the second obtuse marginal branch with successful PCI using bare-metal vision stent 3.0 x 28 mm to the second OM. At that time was reported patient staged intervention to the right and third OM branch after gallbladder removal by Dr. Arvizu, had stress test done at [facility] within then and no further intervention was made. Patient was to be scheduled for [facility] with intervention after healing of Left foot ulcer, however, patient did not follow up, Cardiac catheterization was carried out by Dr. Busch in January 2015 and reported as patent OSBORNE to the LAD vein graft to the diagonal artery and vein graft to the obtuse marginal artery, small vessel disease distally, the right coronary artery has severe diffuse disease, Dr. Busch felt that it is high risk for intervention at this time, medical therapy is recommended. Patient will require significant amount of stenting with limited benefit. Continue to monitor at this time Significant peripheral arterial disease, multiple intervention by Dr. Beebe in the past. Extensive workup in the past, angiogram was done on May 30, 2016 which showed on the right side subtotal occlusion of the anterior tibial artery , severe disease at the posterior tibial and peroneal artery and distal popliteal artery successful balloon angioplasty to the anterior tibial artery using 2.0 then 3.0 balloon with excellent results, balloon angioplasty to the popliteal artery using Lutonix 4.018 mm with excellent results. On July 02, 2016 patient was noted to have total occlusion of the anterior tibial artery of the left leg with balloon angioplasty using 3x100 balloon with excellent results. Return on July 04, 2016 and underwent intervention on the right lower extremity using Lutonix to the distal SFA 6 time 150 mm with excellent results. Patient has small vessel disease distally. On May 01, 2017 after having a nonhealing wound to the left heel. Was found to have total occlusion of the left anterior tibial artery, complex intervention using multiple wires and balloons with excellent results. Repeat angiogram was done on January 01, 2018 showing total occlusion of the anterior tibial artery with unsuccessful attempt to cross the lesion, I was able to do balloon angioplasty for severe disease of the peroneal artery. Patient still have severe stenosis at the distal SFA. Patient was referred to [facility], underwent angiogram on January 10, 2018 had left SFA angioplasty with drug-coated balloon, atherectomy of the anterior tibial artery with jet stream followed by angioplasty of the anterior tibial artery and peroneal artery with drug-coated balloons, angioplasty to the dorsalis pedis. Unsuccessful posterior tibial artery cannulation. His peripheral arterial disease In the small vessel at the right lower extremity is deemed inoperable at this time. s/p Left BKA Congestive heart failure, ischemic cardiomyopathy, LV systolic dysfunction. Persistent cardiomyopathy with ejection fraction 20-25 percent, last echocardiogram was done in July 2017. History of single-chamber ICD implant for primary prevention. Maintained on beta kathrin. Unable to tolerate NORMAN-I or ARB secondary to renal function. Paroxysmal atrial fibrillation-patient noted to have episodes of atrial fibrillation on his first ICD interrogation, longest episode up to one hour. continue on current medication including amiodarone and monitor Episodes of bradycardia, baseline ICD pacing rate was increased from 40 to 50. Continue to monitor Tobaccoism, reports recently quit smoking. Educated on importance of smoking cessation. History of port placement on the right side, status post retrieval after fractured port in June 2016 Hypertension, continue to monitor blood pressure Hyperlipidemia, was started on Lipitor 80 mg daily. Continue to monitor Diabetes mellitus, followed and monitored by primary care physician. Mild bilateral nonobstructive carotid artery stenosis, last carotid ultrasound was done in December 2017, continue to monitor Clinical Quality Measures DVT/VTE Risk/Contraindication: Risk Factor Score Per Nursin RFS Level Per Nursing on Admit: 4+=Very High SHAYNA GRANDE Apr 16, 2018 08:31
--- NOTE | 2018-04-16 09:03 | PM&R Progress Note ---
Subjective This was a face to face visit with the patient. Date Seen by Provider: Apr 16, 2018 Time Seen by Provider: 08:15 Subjective/Events-last exam Patient was seen in the gym while working with PT Urinary retention continues Finally had a bowel movement this afternoon after 6 days Slept much better last night Creatinine 2.7 Appreciate cardiology management Team meeting: Nursing thinks that a wound VAC will be placed because of the cellulitis and the incision and Dr. Chicas is managing that He does become drowsy at times Physical therapy put him on the floor and showed that he could not get off the floor himself because he intends on going back to his trailer Occupational Therapy reports minimal to moderate assistance with bathing Placement pending he really needs assisted living Objective Physician Exam Last Set of Vital Signs Vital Signs Date Time Temp Pulse Resp B/P (MAP) Pulse Ox O2 Delivery O2 Flow Rate FiO2 04/16/18 05:56 98.0 56 16 110/64 (79) 99 Room Air 04/10/18 00:04 21 Capillary Refill : I&O Intake and Output 04/16/18 00:00 Intake Total 825 ml Output Total 650 ml Balance 175 ml Intake Oral 825 ml Output Urine Total 650 ml Bladder Scan Volume Amount 472 ml 222 ml General: Alert, Oriented X3, Cooperative HEENT: Atraumatic, PERRLA Neck: Supple, No JVD, No Thyromegaly Lungs: Normal Air Movement, Other (rhonchi) Heart: Regular Rate, Normal S1, Normal S2, Other (systolic murmur at the left sternal border) Abdomen: Normal Bowel Sounds, Soft, No Tenderness, No Hepatosplenomegaly, No Masses Extremities: No Clubbing, No Cyanosis, No Edema, No Tenderness/Swelling, Other (BKA) Skin: No Rashes, No Breakdown, No Significant Lesion Neuro: Normal Speech, Normal Tone, Sensation Intact Psych/Mental Status: Mental Status NL, Mood NL Results Lab Data Laboratory Tests 04/13/18 11:23: Glucometer 154H 04/13/18 16:32: Glucometer 208H 04/13/18 20:37: Glucometer 118H 04/14/18 05:44: Glucometer 142H 04/14/18 10:53: Glucometer 170H 04/14/18 16:03: Glucometer 288H 04/14/18 20:14: Glucometer 153H 04/15/18 04:58: Glucometer 197H 04/15/18 05:40: White Blood Count 9.8, Red Blood Count 3.69L, Hemoglobin 10.6L, Hematocrit 32L, Mean Corpuscular Volume 88, Mean Corpuscular Hemoglobin 29, Mean Corpuscular Hemoglobin Concent 33, Red Cell Distribution Width 17.6H, Platelet Count 189, Mean Platelet Volume 11.3H, Neutrophils (%) (Auto) 86H, Lymphocytes (%) (Auto) 7L, Monocytes (%) (Auto) 7, Eosinophils (%) (Auto) 1, Basophils (%) (Auto) 0, Neutrophils # (Auto) 8.4H, Lymphocytes # (Auto) 0.6L, Monocytes # (Auto) 0.7, Eosinophils # (Auto) 0.1, Basophils # (Auto) 0.0, Neutrophils % (Manual) 84, Lymphocytes % (Manual) 8, Monocytes % (Manual) 7, Eosinophils % (Manual) 1, Sodium Level 133L, Potassium Level 4.4, Chloride Level 102, Carbon Dioxide Level 21, Anion Gap 10, Blood Urea Nitrogen 45H, Creatinine 2.57#H, Estimat Glomerular Filtration Rate 26, BUN/Creatinine Ratio 18, Glucose Level 184H, Calcium Level 8.4L, Corrected Calcium 9.8, Magnesium Level 1.8, Total Bilirubin 0.8, Aspartate Amino Transf (AST/SGOT) 22, Alanine Aminotransferase (ALT/SGPT) 16, Alkaline Phosphatase 109, Total Protein 5.5L, Albumin 2.3L 04/15/18 10:53: Glucometer 113H 04/15/18 16:22: Glucometer 131H 04/15/18 20:41: Glucometer 121H 04/16/18 05:00: White Blood Count 8.8, Red Blood Count 3.66L, Hemoglobin 10.5L, Hematocrit 32L, Mean Corpuscular Volume 88, Mean Corpuscular Hemoglobin 29, Mean Corpuscular Hemoglobin Concent 33, Red Cell Distribution Width 17.4H, Platelet Count 180, Mean Platelet Volume 11.2H, Neutrophils (%) (Auto) 84H, Lymphocytes (%) (Auto) 8L, Monocytes (%) (Auto) 7, Eosinophils (%) (Auto) 1, Basophils (%) (Auto) 0, Neutrophils # (Auto) 7.4, Lymphocytes # (Auto) 0.7L, Monocytes # (Auto) 0.6, Eosinophils # (Auto) 0.1, Basophils # (Auto) 0.0, Sodium Level 133L, Potassium Level 4.6, Chloride Level 102, Carbon Dioxide Level 20L, Anion Gap 11, Blood Urea Nitrogen 46H, Creatinine 2.71H, Estimat Glomerular Filtration Rate 24, BUN/ Creatinine Ratio 17, Glucose Level 142H, Calcium Level 8.5, Corrected Calcium 9.9, Total Bilirubin 1.1H, Aspartate Amino Transf (AST/SGOT) 30, Alanine Aminotransferase (ALT/SGPT) 19, Alkaline Phosphatase 97, Total Protein 5.9L, Albumin 2.3L Current Funtional Status Patient will continue aggressive therapy Hopefully be able to place him in assisted living or nursing facility if wound VAC is placed Needs permanent placement but that will be hard sale Assessment/Plan Assessment and Plan Assessment: Infected left foot diabetic ulcer s/p left below the knee amputation by Dr. Chicas POD # 10 Congestive heart failure with elevated BNP resolved Chronic renal failure and not a dialysis candidate due to his refusal if that becomes a necessity Severe peripheral vascular disease failed intervention for revascularization of the lower extremities and failed wound care for 4 years CAD previous bypass surgery Hypertension Hyperlipidemia Smoker Gastroparesis with nausea and bloating responding to Reglan by mouth before meals/at bedtime Urinary retention receiving in and out catheter Plan: Monitor creatinine DVT prophylaxis Left below the knee amputation rehab training Monitor BP Decrease Dilaudid Decrease Hydrocodone to 5mg Q6hrs Reglan before meals/at bedtime Urinary retention management Levaquin renal dosed for infected incision May need wound vac Needs placement in skilled care (1) Amput below knee, unilat Status: Acute (2) CKD (chronic kidney disease) stage 3, GFR 30-59 ml/min Status: Chronic (3) Anemia in chronic kidney disease Status: Chronic (4) Ischemic cardiomyopathy Status: Chronic (5) Essential (primary) hypertension Status: Chronic (6) PVD (peripheral vascular disease) Status: Chronic (7) Dyspnea Qualifiers: Qualified Codes: R06.00 - Dyspnea, unspecified Status: Acute (8) Urinary retention Status: Acute (9) Insulin dependent diabetes mellitus Status: Chronic (10) Gastroparesis Status: Chronic (11) Infected incision Status: Acute Co-Morbidities that are continuing to impact the rehab process: (include details ) ABIODUN SOLANO DO Apr 16, 2018 09:02
--- NOTE | 2018-04-16 09:17 | Physical Therapy Daily Note ---
PT Daily Note-Current Subjective Agreeable to PT. Pt discussing how he will enter his home which is a travel trailer. He suggests scooting up the steps on his buttock or using the handle on the frame to pull and hop up. Pt reports once he is inside, he will likely have to "furniture walk" to get around as he probably will not have room for a walker. Transfers Therapy Code Descriptions/Definitions Functional [place] Measure: 0=Not Assessed/NA 4=Minimal Assistance 1=Total Assistance 5=Supervision or Setup 2=Maximal Assistance 6=Modified [place] 3=Moderate Assistance 7=Complete [place] Therapy Quality Codes: 6 Independent with activity with or without an assistive device 5 Patient requires set up or clean up by helper. Patient completes activity by themselves 4 Supervision or touching assist (CGA). [place] provide cues , steadying assist 3 The helper provides less than half the effort to complete the activity 2 The helper provides more than half the effort to complete the activity 1 Dependent. The helper does all the effort to complete an activity 7 Patient refused to complete or attempt activity 9 The patient did not perform the activity before the current illness or injury 88 Not attempted due to Medical conditions or safety concerns Weight Bearing Right Lower Extremity: Right Weight Bearing/Tolerated Left Lower Extremity: Left (BKA) Treatments This treatment consisted of problem solving how he could possibly enter his home safely and effectively. Pt transferred to the floor and then attempted to get up from the floor as if he would need to do if he scooted up his steps and then needed to get up once inside. Pt had much difficulty getting up from the floor and ultimately required assist to do so. It was determined that getting up from the floor will likely be too difficult and not a viable option for entering his trailer. Then discussed use of the handle or adding a handrail to hop up the steps. Pt has much to say about how he feels he can complete this and PT interjects with safety concerns. Ultimately, it was decided to see if he can use 1 handrail on the left and hop up the steps sideways to enter his home. Will try this tomorrow as he is too tired and it is a safety concern to try today. For other part of therapy treatment, pt transferred EOB to with partial stand pivot with SBA. Pt able to wheel himself about unit in mod indep. pt in room post treatment with needs met and awaiting OT Assessment Floor transfer likely not a viable option. Pt does have ideas as to how to enter his home but many of them are not reasonable. We did determine another approach we will try tomorrow. Pt reports he is not willing to move to senior housing or live anywhere except his current home. PT Short Term Goals Short Term Goals Time Frame: Apr 14, 2018 Transfers (B,C,W/C) (FIM): 5 Gait (FIM): 2 Distance (FIM): 0=344-11 ft Gait Distance Comment: 25 Gait Level of Assist: 4 Gait Assistive Device: FWW Wheelchair (FIM): 5 Wheelchair distance (FIM): 3=150 ft Wheelchair Distance: 150'x2 PT Sales Engineer Goals Custodial Goals PT Sales Engineer Goals Time Frame: Apr 30, 2018 Transfers (B,C,W/C) (FIM): 6 Sit to Lying (QC): 6 Lying-Sitting on Side/Bed(QC): 6 Sit to Stand (QC): 6 Rollin Roll Left to Right (QC): 6 Chair/Kys-op-Nzybi Xfer(QC): 6 Car Transfer (QC): 5 Does the Patient Walk: No and Walking Goal IS indicated Gait (FIM): 2 Gait distance (FIM): 0=331-31 ft Distance: 25 ft Walk 10 feet (QC): 6 Walk 10ft-Uneven Surface(QC): 6 Walk 50ft with 2 Turns (QC): 88 Walk 150 ft (QC): 88 Gait Level of Assist: 6 Gait Assistive Device: FWW Does the Pt use WC or Scooter?: Yes Wheelchair (FIM): 6 Wheelchair distance (FIM): 3=150 ft Wheel 50 feet with 2 turns (QC: 6 Stairs (FIM): 5 (household; modified scooting on his buttock) # of Steps: 4 1 Step (curb) (QC): 6 4 Steps (QC): 6 12 Steps (QC): 88 Picking up an Object (QC): 6 (with a tunnel elastic operator zigzag) PT Plan Problem List Problem List: Activity Tolerance, Functional Strength, Safety, Balance, Gait, Transfer, Bed Mobility, Other (hopping up a step to practice entering a home) Treatment/Plan Treatment Plan: Continue Plan of Care Treatment Plan: Bed Mobility, Education, Functional Activity Vickie, Functional Strength, Group Therapy, Gait, Safety, Therapeutic Exercise, Transfers Treatment Duration: Apr 30, 2018 Frequency: At least 5 of 7 days/Wk (IRF) Estimated Hrs Per Day: 1.5 hours per day Patient and/or Family Agrees t: Yes Safety Risks/Education Patient Education: Transfer Techniques, Safety Issues Teaching Recipient: Patient Teaching Methods: Demonstration, Discussion Response to Teaching: Reinforcement Needed Time/GCodes Time In: 805 Time Out: 905 Total Billed Treatment Time: 60 Total Billed Treatment visit FA 60 MOHAN HAGAN PT Apr 16, 2018 09:17
[2018-04-16] MEDS: ISOSORBIDE MONONITRATE 30 MG (IMDUR) TAB PO SCH (09:34)
[2018-04-16] MEDS: AMIODARONE 200 MG (CORDARONE) TAB PO SCH (09:34)
[2018-04-16] MEDS: POLYETHYLENE GLYCOL 17 GM (MIRALAX) PACK PO PRN (09:35)
[2018-04-16] MEDS: CARVEDILOL 3.125 MG (COREG) TABLET PO SCH ×2 (09:44→20:25)
--- NOTE | 2018-04-16 11:22 | Cardiology Progress Note ---
Subjective Date Seen by Provider: Apr 16, 2018 Time Seen by Provider: 11:20 Subjective/Events-last exam patient is receiving physical therapy, seen earlier today. Doing well Review of Systems General: No Chills, No Night Sweats, No Fatigue, No Malaise, No Appetite, No Other HEENT: No Head Aches, No Visual Changes, No Eye Pain, No Ear Pain, No Dysphasia , No Sinus Congestion, No Post Nasal Drip, No Sore Throat, No Other Pulmonary: No Dyspnea, No Cough, No Pleuritic Chest Pain, No Other Cardiovascular: No: Chest Pain, Palpitations, Orthopnea, Paroxysmal Noc. Dyspnea, Edema, Lt Headedness, Other Objective-Cardiology Exam Last Set of Vital Signs Vital Signs 04/10/18 04/16/18 00:04 05:56 Temp 98.0 Pulse 56 Resp 16 B/P (MAP) 110/64 (79) Pulse Ox 99 O2 Delivery Room Air FiO2 21 Capillary Refill : I&O Intake and Output 04/16/18 00:00 Intake Total 825 ml Output Total 650 ml Balance 175 ml Intake Oral 825 ml Output Urine Total 650 ml Bladder Scan Volume Amount 472 ml 222 ml General: Alert, Oriented X3, Cooperative HEENT: Atraumatic, PERRLA Neck: Supple, No JVD, No Thyromegaly Lungs: Normal Air Movement, Other (rhonchi) Heart: Regular Rate, Normal S1, Normal S2, Other (systolic murmur at the left sternal border) Abdomen: Normal Bowel Sounds, Soft, No Tenderness, No Hepatosplenomegaly, No Masses Extremities: No Clubbing, No Cyanosis, No Edema, No Tenderness/Swelling, Other (BKA) Skin: No Rashes, No Breakdown, No Significant Lesion Neuro: Normal Speech, Normal Tone, Sensation Intact Psych/Mental Status: Mental Status NL, Mood NL Results Lab Laboratory Tests 04/16/18 05:00 A/P-Cardiology Admission Diagnosis Peripheral arterial disease Coronary artery disease Hypertension Hyperlipidemia Assessment/Plan Left BKA done on April 04, 2018 secondary to nonhealing foot ulcer, history of right toes amputation in the past. Extensive peripheral arterial disease as described below. Recovering slowly. 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 Arvizu revealing severe three-vessel [place] coronary artery disease with non-bypassed RCA, patent OSBORNE to LAD, patent vein graft to first diag, patent vein graft to first OM. There was occluded jump graft to the second obtuse marginal branch with successful PCI using bare-metal vision stent 3.0 x 28 mm to the second OM. At that time was reported patient staged intervention to the right and third OM branch after gallbladder removal by Dr. Arvizu, had stress test done at [facility] within then and no further intervention was made. Patient was to be scheduled for [facility] with intervention after healing of Left foot ulcer, however, patient did not follow up, Cardiac catheterization was carried out by Dr. Busch in January 2015 and reported as patent OSBORNE to the LAD vein graft to the diagonal artery and vein graft to the obtuse marginal artery, small vessel disease distally, the right coronary artery has severe diffuse disease, Dr. Busch felt that it is high risk for intervention at this time, medical therapy is recommended. Patient will require significant amount of stenting with limited benefit. Continue to monitor at this time Significant peripheral arterial disease, multiple intervention by Dr. Beebe in the past. Extensive workup in the past, angiogram was done on May 30, 2016 which showed on the right side subtotal occlusion of the anterior tibial artery , severe disease at the posterior tibial and peroneal artery and distal popliteal artery successful balloon angioplasty to the anterior tibial artery using 2.0 then 3.0 balloon with excellent results, balloon angioplasty to the popliteal artery using Lutonix 4.018 mm with excellent results. On July 02, 2016 patient was noted to have total occlusion of the anterior tibial artery of the left leg with balloon angioplasty using 3x100 balloon with excellent results. Return on July 04, 2016 and underwent intervention on the right lower extremity using Lutonix to the distal SFA 6 time 150 mm with excellent results. Patient has small vessel disease distally. On May 01, 2017 after having a nonhealing wound to the left heel. Was found to have total occlusion of the left anterior tibial artery, complex intervention using multiple wires and balloons with excellent results. Repeat angiogram was done on January 01, 2018 showing total occlusion of the anterior tibial artery with unsuccessful attempt to cross the lesion, I was able to do balloon angioplasty for severe disease of the peroneal artery. Patient still have severe stenosis at the distal SFA. Patient was referred to [facility], underwent angiogram on January 10, 2018 had left SFA angioplasty with drug-coated balloon, atherectomy of the anterior tibial artery with jet stream followed by angioplasty of the anterior tibial artery and peroneal artery with drug-coated balloons, angioplasty to the dorsalis pedis. Unsuccessful posterior tibial artery cannulation. His peripheral arterial disease In the small vessel at the right lower extremity is deemed inoperable at this time. s/p Left BKA Congestive heart failure, ischemic cardiomyopathy, LV systolic dysfunction. Persistent cardiomyopathy with ejection fraction 20-25 percent, last echocardiogram was done in July 2017. History of single-chamber ICD implant for primary prevention. Maintained on beta kathrin. Unable to tolerate NORMAN-I or ARB secondary to renal function. Paroxysmal atrial fibrillation-patient noted to have episodes of atrial fibrillation on his first ICD interrogation, longest episode up to one hour. continue on current medication including amiodarone and monitor Episodes of bradycardia, baseline ICD pacing rate was increased from 40 to 50. Continue to monitor Tobaccoism, reports recently quit smoking. Educated on importance of smoking cessation. History of port placement on the right side, status post retrieval after fractured port in June 2016 Hypertension, continue to monitor blood pressure Hyperlipidemia, was started on Lipitor 80 mg daily. Continue to monitor Diabetes mellitus, followed and monitored by primary care physician. Mild bilateral nonobstructive carotid artery stenosis, last carotid ultrasound was done in December 2017, continue to monitor Clinical Quality Measures DVT/VTE Risk/Contraindication: Risk Factor Score Per Nursin RFS Level Per Nursing on Admit: 4+=Very High JORDEN GREER MD Apr 16, 2018 11:22
[2018-04-16] MEDS: ENOXAPARIN 40 MG/0.4 ML (LOVENOX) SYR SC SCH (12:35)
--- NOTE | 2018-04-16 13:21 | Occupational Ther Daily Note ---
OT Current Status-Daily Note Subjective Pt stated, I could'nt sleep well last night. I thus I am sleepy ." Pain Numeric Pain Scale: 5-Moderate Pain Location: Left Location Body Site: Knee Pain Description: Ache, Sharp Mental Status/Objective Patient Orientation: Person, Place, Time Therapy Code Descriptions/Definitions Functional [place] Measure: 0=Not Assessed/NA 4=Minimal Assistance 1=Total Assistance 5=Supervision or Setup 2=Maximal Assistance 6=Modified [place] 3=Moderate Assistance 7=Complete [place] ADL-Treatment Patient has sponge-bath in w/c with warm Ready-Bath wipes. Needs min A to wipes back , CGA in wiping Rt below knee .Mod I in all grooming activity. SBA in func toilet transfers . 30 reps x 2 sets x 3 lb wts , 25 reps x 2 sets with red theraband in all planes of motion. No over the head activity as pt.has PACEMAKER.. Therapy Code Descriptions/Definitions Functional [place] Measure: 0=Not Assessed/NA 4=Minimal Assistance 1=Total Assistance 5=Supervision or Setup 2=Maximal Assistance 6=Modified [place] 3=Moderate Assistance 7=Complete [place] Therapy Quality Codes: 6 Independent with activity with or without an assistive device 5 Patient requires set up or clean up by helper. Patient completes activity by themselves 4 Supervision or touching assist (CGA). [place] provide cues , steadying assist 3 The helper provides less than half the effort to complete the activity 2 The helper provides more than half the effort to complete the activity 1 Dependent. The helper does all the effort to complete an activity 7 Patient refused to complete or attempt activity 9 The patient did not perform the activity before the current illness or injury 88 Not attempted due to Medical conditions or safety concerns Eating (FIM): 7 Eating (QC): 6 Grooming (FIM): 6 Oral Hygiene (QC): 6 Upper Body (FIM): 6 Upper Body Dressing (QC): 6 Lower Body Dressing (FIM): 4 Lower Body Dressing (QC): 4 Toileting (FIM): 4 Toileting Hygiene (QC): 4 Transfers (B, C, W/C) (FIM): 5 Toilet/Commode Transfer (FIM): 5 Toilet Transfer (QC): 5 Education OT Patient Education: Correct positioning, Instructions to caregiver, Safety issues, Transfer techniques Teaching Recipient: Patient Teaching Methods: Demonstration, Discussion Response to Teaching: Verbalize Understanding OT Short Term Goals Short Term Goals Time Frame: Apr 21, 2018 Eating(FIM): 7 Grooming(FIM): 7 Bathing(FIM): 5 Bathing Location: L Arm, R Arm, L Upper Leg, R Upper Leg, L Lower Leg ( including foot), R Lower Leg (including foot), Chest, Abdomen, Buttocks, Perineal Area Upper Body Dressing(FIM): 7 Lower Body Dressing(FIM): 4 Toileting(FIM): 4 (with transfer bench) Transfers (B,C,W/C) (FIM): 5 Toilet/Commode Transfer(FIM): 4 Additional Short Term Goals: 1-Demonstrate ADL Tasks, 2-Verbalize Understanding , 3-ImproveStrength/Vickie 1=Demonstrate adherence to instructed precautions during ADL tasks. 2=Patient will verbalize/demonstrate understanding of assistive devices/ modifications for ADL. 3=Patient will improve strength/tolerance for activity to enable patient to perform ADL's. OT Spare Parts Clerk Goals Senior Care Goals Time Frame: May 05, 2018 Eating (FIM): 7 Eating (QC): 6 Groomin Oral Hygiene (QC): 6 Bathing(FIM): 6 Bathing Location: L Arm, R Arm, L Upper Leg, R Upper Leg, L Lower Leg ( including foot), R Lower Leg (including foot), Chest, Abdomen, Buttocks, Perineal Area Shower/Bathe Self (QC): 6 Upper Body Dressing(FIM): 7 Upper Body Dressing (QC): 6 Lower Body Dressing(FIM): 5 Lower Body Dressing (QC): 5 Toileting Hygiene (QC): 6 Transfers (B,C,W/C) (FIM): 5 Toilet/Commode Transfer(FIM): 6 Toilet/Commode Transfer (QC): 5 Shower Transfer(FIM): 6 Additional Goals: 1-Demonstrate ADL Tasks, 2-Verbalize Understanding, 3- ImproveStrength/Vickie 1=Demonstrate adherence to instructed precautions during ADL tasks. 2=Patient will verbalize/demonstrate understanding of assistive devices/ modifications for ADL. 3=Patient will improve strength/tolerance for activity to enable patient to perform ADL's. OT Education/Plan Problem List/Assessment Assessment: Decreased Activ Tolerance, Decreased Safety Aware, Decreased UE Strength, Impaired Bed Mobility, Impaired Funct Balance, Impaired Self-Care Skills Discharge Recommendations Plan/Recommendations: Continue POC Therapy D/C Recommendations: Home Independently, Occupational Therapy Home Care Equpiment Recommendations-D/C: Extended Shower Sprayer, Automotive Porter Treatment Plan/Plan of Care Treatment,Training & Education: Yes Patient would benefit from OT for education, treatment and training to promote independence in ADL's, mobility, safety and/or upper extremity function for ADL' s. Plan of Care: ADL Retraining, Cognitive Retraining, Functional Mobility, Group Exercise/Act as Ind, UE Funct Exercise/Act Treatment Duration: May 05, 2018 Frequency: At least 5 of 7 days/Wk (IRF) Estimated Hrs Per Day: 1.5 hours per day Agreement: Yes Rehab Potential: Good Time/GCodes Start Time: 09:00 Stop Time: 10:00 Total Time Billed (hr/min): 60 Billed Treatment Time 1, ADL x 45 min , EX 15 . Total 60 min. GITA GASPAR OT Apr 16, 2018 13:21
[2018-04-16] MEDS: LEVOFLOXACIN 750 MG TAB (LEVAQUIN) PO SCH (14:54)
[2018-04-16] MEDS: ALPRAZolam 0.25 MG (XANAX) TAB PO PRN (14:54)
--- NOTE | 2018-04-16 15:00 | NUR ---
PREVENA WOUND VAC APPLIED TO LEFT BKA AREA BY WOUND NURSE. PATIENT TOLERATING WELL.
--- NOTE | 2018-04-16 15:09 | Therapy Group Daily Note ---
Therapy Daily Group Note Patient Education Topic Other List Below (demonstration and explanation of assistive devices for opening various difficult to open products as well as daily use assistive devices) Exercises LE Seated Exercise, UE Exercise Other/Notes Pt. attended group PT OT session this date with 3:1 ratio. Objectives of group: 1) understanding modified safe ways to open difficult to open objects which was demonstrated (met) 2) understanding of use of assistive devices for various tasks : demonstrated (met) Pt. came and went from group utilizing w/c. Pt. falls asleep frequently in group and awakens easily to a nudge or gentle voice.. Pt. participated in introducing himself , utilized large foam dice to throw and share something about himself with coordinating numbered question ie, your favorite author. Pt. participated well in all seated U&L extremity exercises as lead by attending therapists. Pt. also participated in recalling the memory challenge words from last group session on Saturday and helped establish more memory challenges for Saturday group. Pt. to room after session with call calderon at hand and needs met Start Time: 13:00 Stop Time: 14:20 Total Billed Treatment Time: 80 Total Billed Treatment 1,GRP LIZ ARAIZA FRUIT RAISER Apr 16, 2018 15:09
--- NOTE | 2018-04-16 16:42 | NUR ---
PT ONLY EATS ONCE OR TWICE A DAY, BUT EATS VERY LARGE AMOUNTS AT THESE TIMES. PT GLUCOSE IS FAIRLY WELL CONTROLLED AND WEIGHT STABLE. INTAKE MEETING NEEDS AT THIS TIME. CONT SAME.
[2018-04-16 16:45] VITALS: BP 103/64
--- NOTE | 2018-04-16 16:45 | NUR ---
PATIENT VERY DROWSY. DID HAVE XANAX WHEN WOUND VAC WAS BEING PUT ON. VSS EXCEPT MILD BRADYCARDIA. PATIENT STATES IS JUST TIRED OUT FROM GETTING UP TO COMMODE X 4 WITH BM'S TODAY. POOR ORAL LIQUID AND FOOD INTAKE.
[2018-04-16] MEDS: TAMSULOSIN 0.4 MG (FLOMAX) CAP PO SCH (17:57)
--- NOTE | 2018-04-16 18:00 | NUR ---
HAS DENIED NEED TO VOID ALL DAY. BLADDER SCAN SHOWS [address] SOLANO NOTIFIED. SHE DENIES CONCERN AND REQUESTS WE JUST CONTINUE TO MONITOR OUTPUT AND SHE WILL SEE HIM DAILY.
[2018-04-16 18:46] VITALS: BP 100/61
--- NOTE | 2018-04-16 20:19 | Progress Note ---
Subjective Date Seen by a Provider: Apr 16, 2018 Time Seen by a Provider: 09:10 Subjective/Events-last exam patient states his leg is feeling better. His pain is continuing to have better pain control. He states erythema decreasing. No other complaints. Denies nausea vomiting fever sweats chills shortness of breath or chest pain. Objective Exam Vital Signs Date Time Temp Pulse Resp B/P (MAP) Pulse Ox O2 Delivery O2 Flow Rate FiO2 04/16/18 18:46 96.7 50 16 100/61 (74) 92 Room Air 04/16/18 08:00 Room Air 04/16/18 05:56 98.0 56 16 110/64 (79) 99 Room Air 04/15/18 20:50 Room Air I & O 04/16/18 07:00 Intake Total 1000 ml Output Total 325 ml Balance 675 ml Capillary Refill : General Appearance: No Apparent Distress, WD/WN, Chronically ill HEENT: PERRL/EOMI, Normal ENT Inspection Neck: Full Range of Motion, Normal Inspection, Non Tender, Supple Respiratory: Chest Non Tender, No Accessory Muscle Use, No Respiratory Distress Cardiovascular: Regular Rate, Rhythm Gastrointestinal: non tender, soft Extremity: Other (Left BKA incision improving erythema. Superfical burn is improving. Less tender) Neurologic/Psychiatric: Alert, Oriented x3, No Motor/Sensory Deficits, Normal Mood/Affect Skin: Normal Color, Warm/Dry Lymphatic: No Adenopathy Results Lab Laboratory Tests 04/15/18 20:41: Glucometer 121H 04/16/18 05:00: White Blood Count 8.8, Red Blood Count 3.66L, Hemoglobin 10.5L, Hematocrit 32L, Mean Corpuscular Volume 88, Mean Corpuscular Hemoglobin 29, Mean Corpuscular Hemoglobin Concent 33, Red Cell Distribution Width 17.4H, Platelet Count 180, Mean Platelet Volume 11.2H, Neutrophils (%) (Auto) 84H, Lymphocytes (%) (Auto) 8L, Monocytes (%) (Auto) 7, Eosinophils (%) (Auto) 1, Basophils (%) (Auto) 0, Neutrophils # (Auto) 7.4, Lymphocytes # (Auto) 0.7L, Monocytes # (Auto) 0.6, Eosinophils # (Auto) 0.1, Basophils # (Auto) 0.0, Sodium Level 133L, Potassium Level 4.6, Chloride Level 102, Carbon Dioxide Level 20L, Anion Gap 11, Blood Urea Nitrogen 46H, Creatinine 2.71H, Estimat Glomerular Filtration Rate 24, BUN/ Creatinine Ratio 17, Glucose Level 142H, Calcium Level 8.5, Corrected Calcium 9.9, Total Bilirubin 1.1H, Aspartate Amino Transf (AST/SGOT) 30, Alanine Aminotransferase (ALT/SGPT) 19, Alkaline Phosphatase 97, Total Protein 5.9L, Albumin 2.3L 04/16/18 11:38: Glucometer 156H 04/16/18 16:30: Glucometer 198H Assessment/Plan Assessment/Plan Assessment/Plan s/p left bka [place] wound VAC to be applied pain control. Continue Levaquin 750mg daily one more week. Will continue to monitor stump. Superficial burn left knee, will continue to monitor. Clinical Quality Measures DVT/VTE Risk/Contraindication: Risk Factor Score Per Nursin RFS Level Per Nursing on Admit: 4+=Very High LEIGH ANN FUCHS DO Apr 16, 2018 20:19
[2018-04-16] MEDS: ATORVASTATIN 80 MG (LIPITOR) TABLET PO SCH (20:25)
[2018-04-16] MEDS: MELATONIN 3 MG TABLET PO PRN (20:25)
[2018-04-16] MEDS: guaiFENesin/CODEINE (ROBITUSSIN AC) 10ML UDC PO PRN (20:32)
[2018-04-16] MEDS: POLYETHYLENE GLYCOL 17 GM (MIRALAX) PACK PO SCH (22:04)
[2018-04-17] MEDS: ALPRAZolam 0.25 MG (XANAX) TAB PO PRN (00:47)
[2018-04-17] MEDS: HYDROcodone/APAP 5 MG/325 MG (LORTAB) TAB PO PRN (03:33)
--- NOTE | 2018-04-17 05:07 | NUR ---
BLADDER SCAN DONE ,SHOWS 316 MLS, DENIES NEED TO URINATE AT THIS TIME, REFUSES TO BE STRAIGHT CATHED AT THIS TIME
[2018-04-17 05:09] VITALS: BP 90/52
[2018-04-17] MEDS: METOCLOPRAMIDE 10 MG (REGLAN) TAB PO SCH ×2 (05:21→11:27)
[2018-04-17] MEDS: LEVOTHYROXINE 100 MCG (LEVOTHROID) TAB PO SCH (05:21)
[2018-04-17] MEDS: BETHANECHOL 25 MG (URECHOLINE) TAB PO SCH (05:21)
[2018-04-17] MEDS: inSUlin ASPART (NovoLOG) 1 UNIT/0.01 ML (CHARGE PER UNIT) SC SCH ×2 (06:21→11:22)
--- NOTE | 2018-04-17 08:27 | Cardiology Progress Note ---
Subjective Date Seen by Provider: Apr 17, 2018 Time Seen by Provider: 08:26 Subjective/Events-last exam Patient in bed, reports increased tiredness and fatigue this morning. Denies any chest pain or dyspnea Objective-Cardiology Exam Last Set of Vital Signs Vital Signs 04/17/18 04/17/18 05:09 08:02 Temp 96.4 Pulse 50 Resp 18 B/P (MAP) 90/52 (65) Pulse Ox 95 O2 Delivery Room Air Capillary Refill : I&O Intake and Output 04/17/18 00:00 Intake Total 1080 ml Output Total 325 ml Balance 755 ml Intake Oral 1080 ml Output Urine Total 325 ml Bladder Scan Volume Amount 536 ml 0 ml 177 ml # Bowel Movements 4 General: Alert, Oriented X3, Cooperative HEENT: Atraumatic, PERRLA Neck: Supple, No JVD, No Thyromegaly Lungs: Normal Air Movement, Other (rhonchi) Heart: Regular Rate, Normal S1, Normal S2, Other (systolic murmur at the left sternal border) Abdomen: Normal Bowel Sounds, Soft, No Tenderness, No Hepatosplenomegaly, No Masses Extremities: No Clubbing, No Cyanosis, No Edema, No Tenderness/Swelling, Other (BKA) Skin: No Rashes, No Breakdown, No Significant Lesion Neuro: Normal Speech, Normal Tone, Sensation Intact Psych/Mental Status: Mental Status NL, Mood NL A/P-Cardiology Admission Diagnosis Peripheral arterial disease Coronary artery disease Hypertension Hyperlipidemia Assessment/Plan Left BKA done on April 04, 2018 secondary to nonhealing foot ulcer, history of right toes amputation in the past. Extensive peripheral arterial disease as described below. Recovering slowly. Acute on chronic renal failure, has been followed by a frame opener, continue to monitor Coronary artery disease, history of CABG 4 in 2008 with cardiac catheterization June 02, [address] Arvizu revealing severe three-vessel [place] coronary artery disease with non-bypassed RCA, patent OSBORNE to LAD, patent vein graft to first diag, patent vein graft to first OM. There was occluded jump graft to the second obtuse marginal branch with successful PCI using bare-metal vision stent 3.0 x 28 mm to the second OM. At that time was reported patient staged intervention to the right and third OM branch after gallbladder removal by Dr. Arvizu, had stress test done at within then and no further intervention was made. Patient was to be scheduled for [facility] with intervention after healing of Left foot ulcer, however, patient did not follow up, Cardiac catheterization was carried out by Dr. Busch in January 2015 and reported as patent OSBORNE to the LAD vein graft to the diagonal artery and vein graft to the obtuse marginal artery, small vessel disease distally, the right coronary artery has severe diffuse disease, Dr. Busch felt that it is high risk for intervention at this time, medical therapy is recommended. Patient will require significant amount of stenting with limited benefit. Continue to monitor at this time Significant peripheral arterial disease, multiple intervention by Dr. Beebe in the past. Extensive workup in the past, angiogram was done on May 30, 2016 which showed on the right side subtotal occlusion of the anterior tibial artery , severe disease at the posterior tibial and peroneal artery and distal popliteal artery successful balloon angioplasty to the anterior tibial artery using 2.0 then 3.0 balloon with excellent results, balloon angioplasty to the popliteal artery using Lutonix 4.018 mm with excellent results. On July 02, 2016 patient was noted to have total occlusion of the anterior tibial artery of the left leg with balloon angioplasty using 3x100 balloon with excellent results. Return on July 04, 2016 and underwent intervention on the right lower extremity using Lutonix to the distal SFA 6 time 150 mm with excellent results. Patient has small vessel disease distally. On May 01, 2017 after having a nonhealing wound to the left heel. Was found to have total occlusion of the left anterior tibial artery, complex intervention using multiple wires and balloons with excellent results. Repeat angiogram was done on January 01, 2018 showing total occlusion of the anterior tibial artery with unsuccessful attempt to cross the lesion, I was able to do balloon angioplasty for severe disease of the peroneal artery. Patient still have severe stenosis at the distal SFA. Patient was referred to [facility], underwent angiogram on January 10, 2018 had left SFA angioplasty with drug-coated balloon, atherectomy of the anterior tibial artery with jet stream followed by angioplasty of the anterior tibial artery and peroneal artery with drug-coated balloons, angioplasty to the dorsalis pedis. Unsuccessful posterior tibial artery cannulation. His peripheral arterial disease In the small vessel at the right lower extremity is deemed inoperable at this time. s/p Left BKA Congestive heart failure, ischemic cardiomyopathy, LV systolic dysfunction. Persistent cardiomyopathy with ejection fraction 20-25 percent, last echocardiogram was done in July 2017. History of single-chamber ICD implant for primary prevention. Maintained on beta kathrin. Unable to tolerate NORMAN-I or ARB secondary to renal function. Paroxysmal atrial fibrillation-patient noted to have episodes of atrial fibrillation on his first ICD interrogation, longest episode up to one hour. continue on current medication including amiodarone and monitor Episodes of bradycardia, baseline ICD pacing rate was increased from 40 to 50. Continue to monitor Tobaccoism, reports recently quit smoking. Educated on importance of smoking cessation. History of port placement on the right side, status post retrieval after fractured port in June 2016 Hypertension, continue to monitor blood pressure Hyperlipidemia, was started on Lipitor 80 mg daily. Continue to monitor Diabetes mellitus, followed and monitored by primary care physician. Mild bilateral nonobstructive carotid artery stenosis, last carotid ultrasound was done in December 2017, continue to monitor Clinical Quality Measures DVT/VTE Risk/Contraindication: Risk Factor Score Per Nursin RFS Level Per Nursing on Admit: 4+=Very High SHAYNA GRANDE Apr 17, 2018 08:27
--- NOTE | 2018-04-17 08:33 | Cardiology Progress Note ---
Subjective Date Seen by Provider: Apr 17, 2018 Time Seen by Provider: 08:30 Subjective/Events-last exam Patient is in bed, complaining of diarrhea, no chest pain Review of Systems General: No Chills, No Night Sweats, No Fatigue, No Malaise, No Appetite, No Other HEENT: No Head Aches, No Visual Changes, No Eye Pain, No Ear Pain, No Dysphasia , No Sinus Congestion, No Post Nasal Drip, No Sore Throat, No Other Cardiovascular: No: Chest Pain, Palpitations, Orthopnea, Paroxysmal Noc. Dyspnea, Edema, Lt Headedness, Other Objective-Cardiology Exam Last Set of Vital Signs Vital Signs 04/17/18 04/17/18 05:09 08:02 Temp 96.4 Pulse 50 Resp 18 B/P (MAP) 90/52 (65) Pulse Ox 95 O2 Delivery Room Air Capillary Refill : I&O Intake and Output 04/16/18 23:59 Intake Total 1080 ml Output Total 325 ml Balance 755 ml Intake Oral 1080 ml Output Urine Total 325 ml Bladder Scan Volume Amount 536 ml 0 ml 177 ml # Bowel Movements 4 General: Alert, Oriented X3, Cooperative HEENT: Atraumatic, PERRLA Neck: Supple, No JVD, No Thyromegaly Lungs: Normal Air Movement, Other (rhonchi) Heart: Regular Rate, Normal S1, Normal S2, Other (systolic murmur at the left sternal border) Abdomen: Normal Bowel Sounds, Soft, No Tenderness, No Hepatosplenomegaly, No Masses Extremities: No Clubbing, No Cyanosis, No Edema, No Tenderness/Swelling, Other (BKA) Skin: No Rashes, No Breakdown, No Significant Lesion Neuro: Normal Speech, Normal Tone, Sensation Intact Psych/Mental Status: Mental Status NL, Mood NL Results Lab Laboratory Tests Test 04/16/18 11:38 04/16/18 16:30 04/16/18 20:23 04/17/18 05:48 Range/Units Glucometer 156 H 198 H 183 H 84 70-110 MG/DL A/P-Cardiology Admission Diagnosis Peripheral arterial disease Coronary artery disease Hypertension Hyperlipidemia Assessment/Plan Left BKA done on April 04, 2018 secondary to nonhealing foot ulcer, history of right toes amputation in the past. Extensive peripheral arterial disease as described below. Recovering slowly. 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 Arvizu revealing severe three-vessel [place] coronary artery disease with non-bypassed RCA, patent OSBORNE to LAD, patent vein graft to first diag, patent vein graft to first OM. There was occluded jump graft to the second obtuse marginal branch with successful PCI using bare-metal vision stent 3.0 x 28 mm to the second OM. At that time was reported patient staged intervention to the right and third OM branch after gallbladder removal by Dr. Arvizu, had stress test done at [facility] within then and no further intervention was made. Patient was to be scheduled for [facility] with intervention after healing of Left foot ulcer, however, patient did not follow up, Cardiac catheterization was carried out by Dr. Busch in January 2015 and reported as patent OSBORNE to the LAD vein graft to the diagonal artery and vein graft to the obtuse marginal artery, small vessel disease distally, the right coronary artery has severe diffuse disease, Dr. Busch felt that it is high risk for intervention at this time, medical therapy is recommended. Patient will require significant amount of stenting with limited benefit. Continue to monitor at this time Significant peripheral arterial disease, multiple intervention by Dr. Beebe in the past. Extensive workup in the past, angiogram was done on May 30, 2016 which showed on the right side subtotal occlusion of the anterior tibial artery , severe disease at the posterior tibial and peroneal artery and distal popliteal artery successful balloon angioplasty to the anterior tibial artery using 2.0 then 3.0 balloon with excellent results, balloon angioplasty to the popliteal artery using Lutonix 4.018 mm with excellent results. On July 02, 2016 patient was noted to have total occlusion of the anterior tibial artery of the left leg with balloon angioplasty using 3x100 balloon with excellent results. Return on July 04, 2016 and underwent intervention on the right lower extremity using Lutonix to the distal SFA 6 time 150 mm with excellent results. Patient has small vessel disease distally. On May 01, 2017 after having a nonhealing wound to the left heel. Was found to have total occlusion of the left anterior tibial artery, complex intervention using multiple wires and balloons with excellent results. Repeat angiogram was done on January 01, 2018 showing total occlusion of the anterior tibial artery with unsuccessful attempt to cross the lesion, I was able to do balloon angioplasty for severe disease of the peroneal artery. Patient still have severe stenosis at the distal SFA. Patient was referred to [facility], underwent angiogram on January 10, 2018 had left SFA angioplasty with drug-coated balloon, atherectomy of the anterior tibial artery with jet stream followed by angioplasty of the anterior tibial artery and peroneal artery with drug-coated balloons, angioplasty to the dorsalis pedis. Unsuccessful posterior tibial artery cannulation. His peripheral arterial disease In the small vessel at the right lower extremity is deemed inoperable at this time. s/p Left BKA Congestive heart failure, ischemic cardiomyopathy, LV systolic dysfunction. Persistent cardiomyopathy with ejection fraction 20-25 percent, last echocardiogram was done in July 2017. History of single-chamber ICD implant for primary prevention. Maintained on beta kathrin. Unable to tolerate NORMAN-I or ARB secondary to renal function. Paroxysmal atrial fibrillation-patient noted to have episodes of atrial fibrillation on his first ICD interrogation, longest episode up to one hour. continue on current medication including amiodarone and monitor Episodes of bradycardia, baseline ICD pacing rate was increased from 40 to 50. Continue to monitor Tobaccoism, reports recently quit smoking. Educated on importance of smoking cessation. History of port placement on the right side, status post retrieval after fractured port in June 2016 Hypertension, borderline hypotension, probably secondary to medications and diarrhea, monitor blood pressure Hyperlipidemia, was started on Lipitor 80 mg daily. Continue to monitor Diabetes mellitus, followed and monitored by primary care physician. Mild bilateral nonobstructive carotid artery stenosis, last carotid ultrasound was done in December 2017, continue to monitor Clinical Quality Measures DVT/VTE Risk/Contraindication: Risk Factor Score Per Nursin RFS Level Per Nursing on Admit: 4+=Very High JORDEN GREER MD Apr 17, 2018 08:33
--- NOTE | 2018-04-17 08:50 | PM&R Progress Note ---
Subjective HPI/CC On Admission Date Seen by Provider: Apr 17, 2018 Time Seen by Provider: 08:20 Subjective/Events-last exam See DC summary Focused Exam Lactate Level 04/17/18 09:25: Lactic Acid Level 1.38 Objective Exam Vital Signs Vital Signs Date Time Temp Pulse Resp B/P (MAP) Pulse Ox O2 Delivery O2 Flow Rate FiO2 04/17/18 11:40 94.8 87 18 82/58 (66) 92 Nasal Cannula 2.00 Capillary Refill : General Appearance: Chronically ill Results/Procedures Lab Patient resulted labs reviewed. Assessment/Plan Assessment and Plan Assess & Plan/Chief Complaint Assessment: Infected left foot diabetic ulcer s/p left below the knee amputation by Dr. Chicas POD # 9 Congestive heart failure with elevated BNP resolved Chronic renal failure and not a dialysis candidate due to his refusal if that becomes a necessity Severe peripheral vascular disease failed intervention for revascularization of the lower extremities and failed wound care for 4 years CAD previous bypass surgery Hypertension Hyperlipidemia Smoker Gastroparesis with nausea and bloating responding to Reglan by mouth before meals/at bedtime Urinary retention receiving in and out catheter Plan: Monitor creatinine DVT prophylaxis Left below the knee amputation rehab training Monitor BP Decrease Dilaudid Decrease Hydrocodone to 5mg Q6hrs Reglan before meals/at bedtime Urinary retention management Levaquin renal dosed for infected incision Diagnosis/Problems Diagnosis/Problems (1) Amput below knee, unilat Status: Acute (2) CKD (chronic kidney disease) stage 3, GFR 30-59 ml/min Status: Chronic (3) Anemia in chronic kidney disease Status: Chronic (4) Ischemic cardiomyopathy Status: Chronic (5) Essential (primary) hypertension Status: Chronic (6) PVD (peripheral vascular disease) Status: Chronic (7) Dyspnea Status: Acute Qualifiers: Dyspnea type: unspecified Qualified Codes: R06.00 - Dyspnea, unspecified (8) Urinary retention Status: Acute (9) Insulin dependent diabetes mellitus Status: Chronic (10) Gastroparesis Status: Chronic (11) Infected incision Status: Acute Clinical Quality Measures Admission Status Admission Dx Assessment: Infected left foot diabetic ulcer s/p left below the knee amputation by Dr. Chicas POD # 4 Congestive heart failure with elevated BNP Chronic renal failure and not a dialysis candidate due to his refusal if that becomes a necessity Severe peripheral vascular disease failed intervention for revascularization of the lower extremities and failed wound care for 4 years CAD previous bypass surgery Hypertension Hyperlipidemia Smoker Plan: Monitor creatinine DVT prophylaxis Left below the knee amputation rehab training DVT/VTE Risk/Contraindication: Risk Factor Score Per Nursin RFS Level Per Nursing on Admit: 4+=Very High ABIODUN SOLANO DO Apr 17, 2018 08:50
[2018-04-17] MEDS ORDERED: ISOSORBIDE MONONITRATE 30 MG (IMDUR) TAB PO SCH (09:00)
[2018-04-17 09:06] VITALS: BP 79/53
--- NOTE | 2018-04-17 09:15 | NUR ---
THIS RN NOTIFIED DR SOLANO OF PT BLOOD PRESSURE AND THAT PT IS HARD TO KEEP AWAKE/VERY SLEEPY BUT THAT PT IS ALERT AND ORIENTED. ORDERS RECEIVED FOR 500ML NS BOLUS, DC IV PAIN MEDICINE, CHANGE HYDROCODONE TO Q12HR PRN AND TO DRAW LABS.
[2018-04-17] MEDS ORDERED: NS IV 500 ML 500 ML ONE (09:24)
[2018-04-17] MEDS ORDERED: NS IV 500 ML 500 ML IV ONE (09:30)
[2018-04-17] MEDS ORDERED: HYDROcodone/APAP 5 MG/325 MG (LORTAB) TAB PO PRN (09:30)
[2018-04-17] MEDS: AMIODARONE 200 MG (CORDARONE) TAB PO SCH (09:37)
[2018-04-17] MEDS: CARVEDILOL 3.125 MG (COREG) TABLET PO SCH (09:37)
[2018-04-17 09:59] LABS: RED CELL DISTRIBUTION WIDTH 17.8 % (10.0-14.5); WHITE BLOOD COUNT 9.4 10^3/uL (4.3-11.0)
[2018-04-17 10:03] LABS: ALBUMIN 2.3 GM/DL (3.2-4.5); CALCIUM 8.4 MG/DL (8.5-10.1); CREATININE SERUM 3.68 MG/DL (0.60-1.30); TOTAL PROTEIN 5.9 GM/DL (6.4-8.2)
--- NOTE | 2018-04-17 10:10 | Occupational Ther Daily Note ---
OT Current Status-Daily Note Subjective Patient states that, " I am sleepy & weak today. " Charge Nsg informed me his BP is low. Notified Physician by Nurse. Pain Numeric Pain Scale: 5-Moderate Pain Location: Left Location Body Site: Generalized Pain Description: Ache, Radiating Mental Status/Objective Patient Orientation: Person, Place, Time Therapy Code Descriptions/Definitions Functional [place] Measure: 0=Not Assessed/NA 4=Minimal Assistance 1=Total Assistance 5=Supervision or Setup 2=Maximal Assistance 6=Modified [place] 3=Moderate Assistance 7=Complete [place] Attachments: Drains, IV Pt has Wound-Vac on his Left BK Stump. ADL-Treatment As Patients BP is low , therapist did'nt took him for shower room for safety reason. Patient had sponge bath in bed . Pt has been given Warm Ready-Bath Wipes to wash UB & LB, Arms, forearms, face, nech , chest, perineal & buttocks with min A as he was dizzy & weak .Patient dress UB garments with CGA , brush his hairs & bran with set up .Participated in strengthening ex to BUE 25 reps x 2 sets x 2 lb wts , 25 reps x red theraband with BUE . No above the head ex as Pt has Pacemaker. Therapy Code Descriptions/Definitions Functional [place] Measure: 0=Not Assessed/NA 4=Minimal Assistance 1=Total Assistance 5=Supervision or Setup 2=Maximal Assistance 6=Modified [place] 3=Moderate Assistance 7=Complete [place] Therapy Quality Codes: 6 Independent with activity with or without an assistive device 5 Patient requires set up or clean up by helper. Patient completes activity by themselves 4 Supervision or touching assist (CGA). [place] provide cues , steadying assist 3 The helper provides less than half the effort to complete the activity 2 The helper provides more than half the effort to complete the activity 1 Dependent. The helper does all the effort to complete an activity 7 Patient refused to complete or attempt activity 9 The patient did not perform the activity before the current illness or injury 88 Not attempted due to Medical conditions or safety concerns Eating (FIM): 7 Eating (QC): 6 Grooming (FIM): 5 Oral Hygiene (QC): 5 Bathing (FIM): 4 Bathing Location: L Arm, R Arm, L Upper Leg, R Upper Leg, L Lower Leg ( including foot), R Lower Leg (including foot), Chest, Abdomen, Buttocks, Perineal Area Shower/Bathe Self (QC): 4 Upper Body (FIM): 5 Upper Body Dressing (QC): 5 Lower Body Dressing (FIM): 4 Lower Body Dressing (QC): 4 On/Off Footwear (QC): 0 (Pt has Lf BKA & Rt forefoot amputee) Toileting (FIM): 5 Toileting Hygiene (QC): 4 Transfers (B, C, W/C) (FIM): 6 Toilet/Commode Transfer (FIM): 6 Toilet Transfer (QC): 6 Tub Transfer(FIM): 0 Shower Transfer(FIM): 6 Education OT Patient Education: Correct positioning, Safety issues Teaching Recipient: Patient Teaching Methods: Demonstration, Discussion Response to Teaching: Verbalize Understanding, Return Demonstration OT Short Term Goals Short Term Goals Time Frame: Apr 21, 2018 Eating(FIM): 7 Grooming(FIM): 7 Bathing(FIM): 5 Bathing Location: L Arm, R Arm, L Upper Leg, R Upper Leg, L Lower Leg ( including foot), R Lower Leg (including foot), Chest, Abdomen, Buttocks, Perineal Area Upper Body Dressing(FIM): 7 Lower Body Dressing(FIM): 4 Toileting(FIM): 4 (with transfer bench) Transfers (B,C,W/C) (FIM): 5 Toilet/Commode Transfer(FIM): 4 Additional Short Term Goals: 1-Demonstrate ADL Tasks, 2-Verbalize Understanding , 3-ImproveStrength/Vickie 1=Demonstrate adherence to instructed precautions during ADL tasks. 2=Patient will verbalize/demonstrate understanding of assistive devices/ modifications for ADL. 3=Patient will improve strength/tolerance for activity to enable patient to perform ADL's. OT Senior Care Goals Scenic Artist Goals Time Frame: May 05, 2018 Eating (FIM): 7 Eating (QC): 6 Groomin Oral Hygiene (QC): 6 Bathing(FIM): 6 Bathing Location: L Arm, R Arm, L Upper Leg, R Upper Leg, L Lower Leg ( including foot), R Lower Leg (including foot), Chest, Abdomen, Buttocks, Perineal Area Shower/Bathe Self (QC): 6 Upper Body Dressing(FIM): 7 Upper Body Dressing (QC): 6 Lower Body Dressing(FIM): 5 Lower Body Dressing (QC): 5 Toileting Hygiene (QC): 6 Transfers (B,C,W/C) (FIM): 5 Toilet/Commode Transfer(FIM): 6 Toilet/Commode Transfer (QC): 5 Shower Transfer(FIM): 6 Additional Goals: 1-Demonstrate ADL Tasks, 2-Verbalize Understanding, 3- ImproveStrength/Vickie 1=Demonstrate adherence to instructed precautions during ADL tasks. 2=Patient will verbalize/demonstrate understanding of assistive devices/ modifications for ADL. 3=Patient will improve strength/tolerance for activity to enable patient to perform ADL's. OT Education/Plan Problem List/Assessment Assessment: Decreased Activ Tolerance, Decreased Safety Aware, Decreased UE Strength, Impaired Bed Mobility, Impaired Funct Balance, Impaired Self-Care Skills Discharge Recommendations Plan/Recommendations: Continue POC Therapy D/C Recommendations: Home Independently, Occupational Therapy Home Care Equpiment Recommendations-D/C: Bath Chair, Extended Shower Sprayer, Chairman & Ceo Treatment Plan/Plan of Care Treatment,Training & Education: Yes Patient would benefit from OT for education, treatment and training to promote independence in ADL's, mobility, safety and/or upper extremity function for ADL' s. Plan of Care: ADL Retraining, Cognitive Retraining, Functional Mobility, Group Exercise/Act as Ind, UE Funct Exercise/Act Treatment Duration: May 05, 2018 Frequency: At least 5 of 7 days/Wk (IRF) Estimated Hrs Per Day: 1.5 hours per day Agreement: Yes Rehab Potential: Good Time/GCodes Start Time: 09:00 Stop Time: 10:00 Total Time Billed (hr/min): 60 Billed Treatment Time 1, ADL 60 min GITA GASPAR OT Apr 17, 2018 10:10
[2018-04-17 10:13] VITALS: BP 80/50
[2018-04-17 10:57] VITALS: BP 79/52
--- NOTE | 2018-04-17 10:58 | Physical Therapy Daily Note ---
PT Daily Note-Current Subjective Patient in bed pre tx, agrees to PT, has no pain at rest. Patient is extremely drowsy, and needs constant cues to stay on task and to keep eyes open. Patient has low blood pressure but can try to participate in therapy with safe activities. Appearance Patient in bed post tx with nurse call, phone, tray, all needs met. Mental Status Patient Orientation: Person, Mumbles wound vac Transfers Therapy Code Descriptions/Definitions Functional [place] Measure: 0=Not Assessed/NA 4=Minimal Assistance 1=Total Assistance 5=Supervision or Setup 2=Maximal Assistance 6=Modified [place] 3=Moderate Assistance 7=Complete [place] Therapy Quality Codes: 6 Independent with activity with or without an assistive device 5 Patient requires set up or clean up by helper. Patient completes activity by themselves 4 Supervision or touching assist (CGA). [place] provide cues , steadying assist 3 The helper provides less than half the effort to complete the activity 2 The helper provides more than half the effort to complete the activity 1 Dependent. The helper does all the effort to complete an activity 7 Patient refused to complete or attempt activity 9 The patient did not perform the activity before the current illness or injury 88 Not attempted due to Medical conditions or safety concerns Transfers (B, C, W/C) (FIM): 4 Scootin Rollin Supine to/from Sit: 5 Sit to/from Stand: 4 Bed to/from Chair: 4 assist patient positioning wheelchair for a more optimal transfer Weight Bearing Right Lower Extremity: Right Weight Bearing/Tolerated Left Lower Extremity: Left (BKA) Wheelchair Training Does the Pt Use a Wheelchair?: Yes Wheelchair (FIM): 5 Distance: 150'x2 Wheelchair Level of Assist: 5 Type of Wheelchair: Manual Exercises Seated Therapy Exercises: Ankle pumps (RLE), Hip flexion Seated Reps: 20 LAQ alternating for 5 min Treatments bed mobility and transfers, wheelchair mobility, functional strengthening Assessment Current Status: Poor Progress Patient performed every activity very slowly, propelled wheelchair inches at a time and slowly, constantly needed cues to stay awake and keep his eyes open. 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 PT Care Home Goals Time Frame: Apr 30, 2018 Transfers (B,C,W/C) (FIM): 6 Sit to Lying (QC): 6 Lying-Sitting on Side/Bed(QC): 6 Sit to Stand (QC): 6 Rollin Roll Left to Right (QC): 6 Chair/Nga-sq-Buujz Xfer(QC): 6 Car Transfer (QC): 5 Does the Patient Walk: No and Walking Goal IS indicated Gait (FIM): 2 Gait distance (FIM): 0=470-11 ft Distance: 25 ft Walk 10 feet (QC): 6 Walk 10ft-Uneven Surface(QC): 6 Walk 50ft with 2 Turns (QC): 88 Walk 150 ft (QC): 88 Gait Level of Assist: 6 Gait Assistive Device: FWW Does the Pt use WC or Scooter?: Yes Wheelchair (FIM): 6 Wheelchair distance (FIM): 3=150 ft Wheel 50 feet with 2 turns (QC: 6 Stairs (FIM): 5 (household; modified scooting on his buttock) # of Steps: 4 1 Step (curb) (QC): 6 4 Steps (QC): 6 12 Steps (QC): 88 Picking up an Object (QC): 6 (with a mental health specialist) PT Plan Problem List Problem List: Activity Tolerance, Functional Strength, Safety, Balance, Gait, Transfer, Bed Mobility, ROM Treatment/Plan Treatment Plan: Continue Plan of Care Treatment Plan: Bed Mobility, Education, Functional Activity Vickie, Functional Strength, Group Therapy, Gait, Safety, Therapeutic Exercise, Transfers Treatment Duration: Apr 30, 2018 Frequency: At least 5 of 7 days/Wk (IRF) Estimated Hrs Per Day: 1.5 hours per day Patient and/or Family Agrees t: Yes Safety Risks/Education Patient Education: Transfer Techniques, Correct Positioning, W/C Management, Safety Issues Teaching Recipient: Patient Teaching Methods: Demonstration, Discussion Response to Teaching: Reinforcement Needed Time/GCodes Time In: 1000 Time Out: 1100 Total Billed Treatment Time: 60 Total Billed Treatment 1 visit EX 15' FA 10' WCH 35' ALEJANDRA DEVINE PT Apr 17, 2018 10:58
[2018-04-17 10:59] VITALS: BP_SYST 80; BP_SYST 86; BP_DIAS 52
[2018-04-17] MEDS ORDERED: NS IV 1000 ML 1,000 ML IV SCH ×2 (11:15→12:00)
[2018-04-17] MEDS ORDERED: NS IV 1000 ML 1,000 ML ONE (11:15)
--- NOTE | 2018-04-17 11:15 | NUR ---
THIS RN SPOKE TO DR SOLANO REGARDING PT BLOOD PRESSURE AND TEMPERATURE AND THAT PT IS SLIGHTLY MORE LETHARGIC BUT STILL ALERT AND ORIENTED AND ANSWERS QUESTIONS APPROPRIATELY. NEW ORDERS RECEIVED.
[2018-04-17] MEDS ORDERED: NALOXONE 0.4 MG/ML 1 ML (NARCAN) VIAL IV ONE (11:30)
--- NOTE | 2018-04-17 11:35 | NUR ---
DR SOLANO IN ROOM TO SEE PT, VITALS TAKEN, NARCAN GIVEN PER DR SOLANO ORDER.
[2018-04-17 11:40] VITALS: BP_SYST 82; BP_SYST 98; BP_DIAS 58
--- NOTE | 2018-04-17 11:40 | NUR ---
PT TRANSFERRED TO ROOM ICU 9 VIA BED ACCOMPANIED BY MICHELL RN AND RESPIRATORY THERAPY PER DR SOLANO AND DR LEE WHO WERE AT BEDSIDE. PT FAMILY NOTIFIED. BEDSIDE REPORT GIVEN TO TIEN GAMINO FOR CONTINUING CARE. Addendum: 04/17/18 at 1354 by SHANAE KAMARA RN PT TRANSFERRED TO ICU AT 1200
--- NOTE | 2018-04-17 11:44 | NUR ---
THIS RN CALLED AND SPOKE WITH DR MEEHAN PER DR KWOK REQUEST TO SEE IF DR MEEHAN WAS OK THIS RN PLACING CELESTE CATHETER IN PATIENT. DR MEEHAN OK WITH CELESTE PLACEMENT. THIS RN NOTIFIED DR SOLANO THAT DR MEEHAN OK WITH CELESTE.
--- NOTE | 2018-04-17 11:56 | Physical Therapy Progress Note ---
Therapy Progress Note Pt to transfer to ICU for a brief stay; will not receive therapy services this afternoon. MOHAN HAGAN PT Apr 17, 2018 11:56
--- NOTE | 2018-04-17 11:59 | NUR ---
Weekly team conference Attempted to visit with patient regarding team conference; however, patient has been transferred to the ICU due to increased lethargy, low temperature and low blood pressure. Will continue to monitor. Anticipate patient will return to the ARU once medically stable.
--- NOTE | 2018-04-17 12:26 | Diagnostic Imaging Report ---
PATIENT HISTORY: Hypoxia. TECHNIQUE: Single frontal view of the chest. COMPARISON: 03/31/2018. FINDINGS: Sternotomy wires and post CABG changes are noted. The right-sided Port-A-Cath tip appears stable. The left-sided AICD leads are stable. There is no pneumothorax. There is minimal blunting of the right costophrenic angle which may represent a small effusion or atelectasis. There is no focal airspace consolidation seen. Interstitial markings appear mildly more prominent. There is a density overlying the proximal right humerus which appears to be external to the patient. IMPRESSION: 1. Mildly increased interstitial markings bilaterally, may be due to mild interstitial edema. No focal consolidation is seen. 2. Minimal blunting of the right costophrenic angle may represent a trace pleural effusion. Dictated by: Dictated on workstation # [id number]
--- NOTE | 2018-04-17 13:14 | Progress Note-Urology ---
Progress Note-Urology Progress Notes/Assess & Plan Progress/Assessment & Plan CELESTE INSERTED FOR MONITOR URINE OUTPUT Final Diagnosis URINE RETENTION ANGELY MEEHAN MD Apr 17, 2018 13:14
--- NOTE | 2018-04-17 13:30 | Occ Therapy Progress Note ---
Therapy Progress Note Patient transfer to ICU. With held OT Treatment . GITA GASPAR OT Apr 17, 2018 13:29
--- NOTE | 2018-04-17 13:37 | Therapy Team Discharge Summary ---
Therapy Discharge Summary Discharge Recommendations Date of Discharge Therapy D/C Recommendations: Home Independently, Occupational Therapy Home Care Occupational Therapy Decreased Activ Tolerance, Decreased Safety Aware, Decreased UE Strength, Impaired Bed Mobility, Impaired Funct Balance, Impaired Self-Care Skills PT Repairer Shoe Sticks Goals Repairer Shoe Sticks Goals PT Repairer Shoe Sticks Goals Time Frame: Apr 30, 2018 Transfers (B,C,W/C) (FIM): 6 Sit to Lying (QC): 6 Lying-Sitting on Side/Bed(QC): 6 Sit to Stand (QC): 6 Rollin Chair/Ozp-gw-Hztmj Xfer(QC): 6 Does the Patient Walk: No and Walking Goal IS indicated Gait (FIM): 2 Gait distance (FIM): 5=952-30 ft Distance: 25 ft Walk 50ft with 2 Turns (QC): 88 Walk 150 ft (QC): 88 Gait Level of Assist: 6 Gait Assistive Device: FWW Does the Pt use WC or Scooter?: Yes Wheelchair (FIM): 6 Wheelchair distance (FIM): 3=150 ft Wheel 50 feet with 2 turns (QC: 6 Stairs (FIM): 5 (household; modified scooting on his buttock) # of Steps: 4 OT Repairer Shoe Sticks Goals Halfway Goals Time Frame: May 05, 2018 Eating (FIM): 7 (7 met goal) Eating (QC): 6 (6) Groomin (6) Oral Hygiene (QC): 6 (6) Bathing(FIM): 6 (4) Bathing Location: L Arm, R Arm, L Upper Leg, R Upper Leg, L Lower Leg ( including foot), R Lower Leg (including foot), Chest, Abdomen, Buttocks, Perineal Area Upper Body Dressing(FIM): 7 (7) Lower Body Dressing(FIM): 5 (4) Toileting Hygiene (QC): 6 (5) Transfers (B,C,W/C) (FIM): 5 (5) Toilet/Commode Transfer(FIM): 6 (6) Toilet/Commode Transfer (QC): 5 (5) Shower Transfer(FIM): 6 (6) Additional Goals: 1-Demonstrate ADL Tasks, 2-Verbalize Understanding, 3- ImproveStrength/Vickie 1=Demonstrate adherence to instructed precautions during ADL tasks. 2=Patient will verbalize/demonstrate understanding of assistive devices/ modifications for ADL. 3=Patient will improve strength/tolerance for activity to enable patient to perform ADL's. Patient d/c from skilled OT Services as patient transfer to ICU . Speech Halfway Goals Repairer Shoe Sticks Goals To be Independent in all ADLs & func transfers. Patient will be able to communicate effectively while he is a patient on the ARU. GITA GASPAR OT Apr 17, 2018 13:37
--- NOTE | 2018-04-17 13:56 | NUR ---
Notified by Dr. Colon that patient will be discharged from the ARU as he required intubation and mechanical ventilation after transferring to the ICU.
--- NOTE | 2018-04-17 14:40 | Therapy Team Discharge Summary ---
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 Prior to the BKA, he was indep with all mobility, a community ambulator and still driving. Upon admit to ARU, he was min assist with transfers, unable to ambulate and able to propel his wc short distances with assist. Treatment was focusing on functional strength and mobility training such as transfers, wc propulsion and hopping short distances. Pt has had a decline in medical status and has been transferred to ARU> No goals met at this time. Will dc PT at this time. Occupational Therapy Decreased Activ Tolerance, Decreased Safety Aware, Decreased UE Strength, Impaired Bed Mobility, Impaired Funct Balance, Impaired Self-Care Skills PT Residential Goals Assistant Professor Of Geography Goals PT Assistant Professor Of Geography Goals Time Frame: Apr 30, 2018 Transfers (B,C,W/C) (FIM): 6 Roll Left to Right (QC): 6 Sit to Lying (QC): 6 Lying-Sitting on Side/Bed(QC): 6 Sit to Stand (QC): 6 Chair/Hfa-pd-Nluvd Xfer(QC): 6 Car Transfer (QC): 5 Does the Patient Walk: No and Walking Goal IS indicated Gait (FIM): 2 Gait distance (FIM): 1=212-33 ft Distance: 25 ft Walk 10 feet (QC): 6 Walk 10ft-Uneven Surface(QC): 6 Walk 50ft with 2 Turns (QC): 88 Walk 150 ft (QC): 88 Gait Level of Assist: 6 Gait Assistive Device: FWW Does the Pt use WC or Scooter?: Yes Wheelchair (FIM): 6 Wheelchair distance (FIM): 3=150 ft Wheel 50 feet with 2 turns (QC: 6 Stairs (FIM): 5 (household; modified scooting on his buttock) # of Steps: 4 1 Step (curb) (QC): 6 4 Steps (QC): 6 12 Steps (QC): 88 Picking up an Object (QC): 6 (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 OT Assistant Professor Of Geography Goals Residential Goals Time Frame: May 05, 2018 Eating (FIM): 7 (7 met goal) Eating (QC): 6 (6) Oral Hygiene (QC): 6 (6) Grooming(FIM): 7 (6) Bathing(FIM): 6 (4) Bathing Location: L Arm, R Arm, L Upper Leg, R Upper Leg, L Lower Leg ( including foot), R Lower Leg (including foot), Chest, Abdomen, Buttocks, Perineal Area Shower/Bathe Self (QC): 6 Upper Body Dressing(FIM): 7 (7) Upper Body Dressing (QC): 6 Lower Body Dressing(FIM): 5 (4) Lower Body Dressing (QC): 5 Toileting Hygiene (QC): 6 (5) Transfers (B,C,W/C) (FIM): 5 (5) Toilet/Commode Transfer(FIM): 6 (6) Toilet/Commode Transfer (QC): 5 (5) Shower Transfer(FIM): 6 (6) Additional Goals: 1-Demonstrate ADL Tasks, 2-Verbalize Understanding, 3- ImproveStrength/Vickie 1=Demonstrate adherence to instructed precautions during ADL tasks. 2=Patient will verbalize/demonstrate understanding of assistive devices/ modifications for ADL. 3=Patient will improve strength/tolerance for activity to enable patient to perform ADL's. Speech Assistant Professor Of Geography Goals Assistant Professor Of Geography Goals To be Independent in all ADLs & func transfers. Patient will be able to communicate effectively while he is a patient on the ARU. MOHAN HAGAN PT Apr 17, 2018 14:40
[2018-04-17 14:45] LABS: PHOSPHORUS 6.2 MG/DL (2.3-4.7)
--- NOTE | 2018-04-17 18:14 | Discharge Summary ---
Diagnosis/Chief Complaint Date of Admission Apr 07, 2018 at 11:33 Date of Discharge Apr 17, 2018 at 12:00 Discharge Diagnosis Assessment: Multi-system organ failure requiring ICU transfer and intubation Infected left foot diabetic ulcer s/p left below the knee amputation by Dr. Chicas POD # 10 Congestive heart failure with elevated BNP resolved Chronic renal failure and not a dialysis candidate due to his refusal if that becomes a necessity Severe peripheral vascular disease failed intervention for revascularization of the lower extremities and failed wound care for 4 years CAD previous bypass surgery Hypertension Hyperlipidemia Smoker Gastroparesis with nausea and bloating responding to Reglan by mouth before meals/at bedtime Urinary retention receiving in and out catheter Plan: ICU transfer Monitor creatinine DVT prophylaxis Left below the knee amputation rehab training Monitor BP Decrease Dilaudid Decrease Hydrocodone to 5mg Q6hrs Reglan before meals/at bedtime Urinary retention management Levaquin renal dosed for infected incision May need wound vac Needs placement in skilled care Reason Hospital Visit CC: Debility following left BKA POD # 4 HPI: This is a 57-year-old white male clinic patient of mine who is status post left [id number] amputation last Saturday. Patient lives independently in a trailer and will need aggressive rehabilitation prior to discharge to have a chance in remaining independently living. Patient having phantom pain times so we'll try to manage that as best as possible. Urinary retention seems to be resolved. Blood sugars are reviewed. Patient has a history of smoking and that has ceased since admitted to the hospital. Overall patient feels much better did have a panic attack last night which she does have a component of posttraumatic stress disorder from service. We'll check labs today after drawn from port due to creatinine level. No bowel movement yet but will be intending to work on that today. Discharge Summary Discharge Physical Examination Allergies: Coded Allergies: oxycodone HCl (Verified Allergy, Unknown, HAS RECEIVED HYDROMORPHONE W/O ISSUE, 01/01/18) protamine (Verified Allergy, Unknown, 01/01/18) Vitals & I&Os Vital Signs Date Time Temp Pulse Resp B/P (MAP) Pulse Ox O2 Delivery O2 Flow Rate FiO2 04/17/18 11:40 94.8 87 18 82/58 (66) 92 Nasal Cannula 2.00 Hospital Course Was the Problem List Reviewed?: Yes Hospital course: Patient had an extensive inpatient rehab hospital course that remained very standard until 2 days prior to transfer up to the ICU with multisystem organ failure and intubation. He has very complex medical problems in addition to the recent left below the knee amputation due to gangrene and nonhealing diabetic ulcer failed wound care for 4 years. Chronic renal insufficiency along with urinary retention and non-surgical CAD with PVD placed patient at a higher risk for complications but he was monitored closely along with multiple consultants help in helping patient recover but ultimately would require chcf placement due to the complexities of his medical problems in such a young age stage and inoperable CAD and PVD. Insulin was maintained for good sugar control patient was placed on Levaquin for incisional cellulitis by Dr. Chicas renal dosed and urinary retention was managed by urology with catheters as needed. Patient had significant decline in status with drowsiness and hypotension and bradycardia resulted in IV fluid resuscitation urgent evaluation at the bedside requiring Dr. Devi consultation and transfer him to the ICU. Poor prognosis persist and he has refused hemodialysis in the past when he went to nephrology consultation I sent him to 6 months ago. Labs (last 24 hrs) Laboratory Tests 04/07/18 16:12: Glucometer 210H 04/07/18 20:16: Glucometer 115H 04/08/18 05:51: Glucometer 93 04/08/18 09:00: White Blood Count 8.0, Red Blood Count 3.84L, Hemoglobin 11.1L, Hematocrit 34L, Mean Corpuscular Volume 90, Mean Corpuscular Hemoglobin 29, Mean Corpuscular Hemoglobin Concent 32, Red Cell Distribution Width 16.9H, Platelet Count 138, Mean Platelet Volume 11.3H, Neutrophils (%) (Auto) 77H, Lymphocytes (%) (Auto) 12, Monocytes (%) (Auto) 10, Eosinophils (%) (Auto) 1, Basophils (%) (Auto) 0, Neutrophils # (Auto) 6.2, Lymphocytes # (Auto) 0.9L, Monocytes # (Auto) 0.8, Eosinophils # (Auto) 0.1, Basophils # (Auto) 0.0, Sodium Level 131L, Potassium Level 4.5, Chloride Level 101, Carbon Dioxide Level 20L, Anion Gap 10, Blood Urea Nitrogen 34H, Creatinine 2.72#H, Estimat Glomerular Filtration Rate 24, BUN /Creatinine Ratio 13, Glucose Level 100, Calcium Level 8.5, Corrected Calcium 9.7, Total Bilirubin 1.0, Aspartate Amino Transf (AST/SGOT) 45H, Alanine Aminotransferase (ALT/SGPT) 26, Alkaline Phosphatase 138H, Total Protein 5.7L, Albumin 2.5L 04/08/18 11:11: Glucometer 127H 04/08/18 16:26: Glucometer 138H 04/08/18 20:43: Glucometer 164H 04/09/18 06:26: Glucometer 169H 04/09/18 12:22: Glucometer 170H 04/09/18 15:29: Glucometer 178H 04/09/18 20:12: Glucometer 233H 04/10/18 04:57: Glucometer 113H 04/10/18 04:58: Sodium Level 132L, Potassium Level 4.4, Chloride Level 102, Carbon Dioxide Level 21, Anion Gap 9, Blood Urea Nitrogen 49H, Creatinine 3.05H, Estimat Glomerular Filtration Rate 21, BUN/Creatinine Ratio 16, Glucose Level 102, Calcium Level 8.3L 04/10/18 11:51: Glucometer 137H 04/10/18 15:58: Glucometer 195H 04/10/18 20:28: Glucometer 212H 04/11/18 05:20: White Blood Count 8.1, Red Blood Count 3.66L, Hemoglobin 10.8L, Hematocrit 33L, Mean Corpuscular Volume 89, Mean Corpuscular Hemoglobin 30, Mean Corpuscular Hemoglobin Concent 33, Red Cell Distribution Width 17.7H, Platelet Count 183, Mean Platelet Volume 11.6H, Sodium Level 131L, Potassium Level 4.2, Chloride Level 101, Carbon Dioxide Level 19L, Anion Gap 11, Blood Urea Nitrogen 53H, Creatinine 3.16H, Estimat Glomerular Filtration Rate 20, BUN/Creatinine Ratio 17 , Glucose Level 107H, Calcium Level 8.2L, Corrected Calcium 9.5, Magnesium Level 1.9, Total Bilirubin 0.7, Aspartate Amino Transf (AST/SGOT) 32, Alanine Aminotransferase (ALT/SGPT) 26, Alkaline Phosphatase 130, Total Protein 5.6L, Albumin 2.4L 04/11/18 11:09: Glucometer 151H 04/11/18 16:09: Glucometer 196H 04/11/18 20:37: Glucometer 232H 04/12/18 05:47: Glucometer 109 04/12/18 11:19: Glucometer 117H 04/12/18 15:37: Glucometer 150H 04/12/18 20:27: Glucometer 173H 04/13/18 05:26: Glucometer 215H 04/13/18 11:23: Glucometer 154H 04/13/18 16:32: Glucometer 208H 04/13/18 20:37: Glucometer 118H 04/14/18 05:44: Glucometer 142H 04/14/18 10:53: Glucometer 170H 04/14/18 16:03: Glucometer 288H 04/14/18 20:14: Glucometer 153H 04/15/18 04:58: Glucometer 197H 04/15/18 05:40: White Blood Count 9.8, Red Blood Count 3.69L, Hemoglobin 10.6L, Hematocrit 32L, Mean Corpuscular Volume 88, Mean Corpuscular Hemoglobin 29, Mean Corpuscular Hemoglobin Concent 33, Red Cell Distribution Width 17.6H, Platelet Count 189, Mean Platelet Volume 11.3H, Neutrophils (%) (Auto) 86H, Lymphocytes (%) (Auto) 7L, Monocytes (%) (Auto) 7, Eosinophils (%) (Auto) 1, Basophils (%) (Auto) 0, Neutrophils # (Auto) 8.4H, Lymphocytes # (Auto) 0.6L, Monocytes # (Auto) 0.7, Eosinophils # (Auto) 0.1, Basophils # (Auto) 0.0, Neutrophils % (Manual) 84, Lymphocytes % (Manual) 8, Monocytes % (Manual) 7, Eosinophils % (Manual) 1, Sodium Level 133L, Potassium Level 4.4, Chloride Level 102, Carbon Dioxide Level 21, Anion Gap 10, Blood Urea Nitrogen 45H, Creatinine 2.57#H, Estimat Glomerular Filtration Rate 26, BUN/Creatinine Ratio 18, Glucose Level 184H, Calcium Level 8.4L, Corrected Calcium 9.8, Magnesium Level 1.8, Total Bilirubin 0.8, Aspartate Amino Transf (AST/SGOT) 22, Alanine Aminotransferase (ALT/SGPT) 16, Alkaline Phosphatase 109, Total Protein 5.5L, Albumin 2.3L 04/15/18 10:53: Glucometer 113H 04/15/18 16:22: Glucometer 131H 04/15/18 20:41: Glucometer 121H 04/16/18 05:00: White Blood Count 8.8, Red Blood Count 3.66L, Hemoglobin 10.5L, Hematocrit 32L, Mean Corpuscular Volume 88, Mean Corpuscular Hemoglobin 29, Mean Corpuscular Hemoglobin Concent 33, Red Cell Distribution Width 17.4H, Platelet Count 180, Mean Platelet Volume 11.2H, Neutrophils (%) (Auto) 84H, Lymphocytes (%) (Auto) 8L, Monocytes (%) (Auto) 7, Eosinophils (%) (Auto) 1, Basophils (%) (Auto) 0, Neutrophils # (Auto) 7.4, Lymphocytes # (Auto) 0.7L, Monocytes # (Auto) 0.6, Eosinophils # (Auto) 0.1, Basophils # (Auto) 0.0, Sodium Level 133L, Potassium Level 4.6, Chloride Level 102, Carbon Dioxide Level 20L, Anion Gap 11, Blood Urea Nitrogen 46H, Creatinine 2.71H, Estimat Glomerular Filtration Rate 24, BUN/ Creatinine Ratio 17, Glucose Level 142H, Calcium Level 8.5, Corrected Calcium 9.9, Total Bilirubin 1.1H, Aspartate Amino Transf (AST/SGOT) 30, Alanine Aminotransferase (ALT/SGPT) 19, Alkaline Phosphatase 97, Total Protein 5.9L, Albumin 2.3L 04/16/18 11:38: Glucometer 156H 04/16/18 16:30: Glucometer 198H 04/16/18 20:23: Glucometer 183H 04/17/18 05:48: Glucometer 84 04/17/18 09:25: Sodium Level 131L, Potassium Level 5.0, Chloride Level 101, Carbon Dioxide Level 17L, Anion Gap 13, Blood Urea Nitrogen 57H, Creatinine 3.68#H, Estimat Glomerular Filtration Rate 17, BUN/Creatinine Ratio 15, Glucose Level 126H, Lactic Acid Level 1.38, Calcium Level 8.4L, Corrected Calcium 9.8, Total Bilirubin 1.0, Aspartate Amino Transf (AST/SGOT) 76H, Alanine Aminotransferase ( ALT/SGPT) 50, Alkaline Phosphatase 290H, Troponin I 0.294*H, Total Protein 5.9L , Albumin 2.3L 04/17/18 09:50: White Blood Count 9.4, Red Blood Count 3.87L, Hemoglobin 11.0L, Hematocrit 34L, Mean Corpuscular Volume 87, Mean Corpuscular Hemoglobin 28, Mean Corpuscular Hemoglobin Concent 33, Red Cell Distribution Width 17.8H, Platelet Count 196, Mean Platelet Volume 11.0H, B-Type Natriuretic Peptide 3181.3H 04/17/18 10:04: Glucometer 116H 04/17/18 10:57: Glucometer 121H 04/17/18 12:12: Glucometer 144H 04/17/18 14:18: Phosphorus Level 6.2H, Ammonia 35H, Thyroid Stimulating Hormone (TSH) 5.63H, Cortisol PM Sample 39.1H Pending Labs Laboratory Tests 04/07/18 16:12: Glucometer 210 04/07/18 20:16: Glucometer 115 04/08/18 05:51: Glucometer 93 04/08/18 09:00: White Blood Count 8.0, Red Blood Count 3.84, Hemoglobin 11.1, Hematocrit 34, Mean Corpuscular Volume 90, Mean Corpuscular Hemoglobin 29, Mean Corpuscular Hemoglobin Concent 32, Red Cell Distribution Width 16.9, Platelet Count 138, Mean Platelet Volume 11.3, Neutrophils (%) (Auto) 77, Lymphocytes (%) (Auto) 12 , Monocytes (%) (Auto) 10, Eosinophils (%) (Auto) 1, Basophils (%) (Auto) 0, Neutrophils # (Auto) 6.2, Lymphocytes # (Auto) 0.9, Monocytes # (Auto) 0.8, Eosinophils # (Auto) 0.1, Basophils # (Auto) 0.0, Sodium Level 131, Potassium Level 4.5, Chloride Level 101, Carbon Dioxide Level 20, Anion Gap 10, Blood Urea Nitrogen 34, Creatinine 2.72, Estimat Glomerular Filtration Rate 24, BUN/ Creatinine Ratio 13, Glucose Level 100, Calcium Level 8.5, Corrected Calcium 9.7 , Total Bilirubin 1.0, Aspartate Amino Transf (AST/SGOT) 45, Alanine Aminotransferase (ALT/SGPT) 26, Alkaline Phosphatase 138, Total Protein 5.7, Albumin 2.5 04/08/18 11:11: Glucometer 127 04/08/18 16:26: Glucometer 138 04/08/18 20:43: Glucometer 164 04/09/18 06:26: Glucometer 169 04/09/18 12:22: Glucometer 170 04/09/18 15:29: Glucometer 178 04/09/18 20:12: Glucometer 233 04/10/18 04:57: Glucometer 113 04/10/18 04:58: Sodium Level 132, Potassium Level 4.4, Chloride Level 102, Carbon Dioxide Level 21, Anion Gap 9, Blood Urea Nitrogen 49, Creatinine 3.05, Estimat Glomerular Filtration Rate 21, BUN/Creatinine Ratio 16, Glucose Level 102, Calcium Level 8.3 04/10/18 11:51: Glucometer 137 04/10/18 15:58: Glucometer 195 04/10/18 20:28: Glucometer 212 04/11/18 05:20: White Blood Count 8.1, Red Blood Count 3.66, Hemoglobin 10.8, Hematocrit 33, Mean Corpuscular Volume 89, Mean Corpuscular Hemoglobin 30, Mean Corpuscular Hemoglobin Concent 33, Red Cell Distribution Width 17.7, Platelet Count 183, Mean Platelet Volume 11.6, Sodium Level 131, Potassium Level 4.2, Chloride Level 101, Carbon Dioxide Level 19, Anion Gap 11, Blood Urea Nitrogen 53, Creatinine 3.16, Estimat Glomerular Filtration Rate 20, BUN/Creatinine Ratio 17 , Glucose Level 107, Calcium Level 8.2, Corrected Calcium 9.5, Magnesium Level 1.9, Total Bilirubin 0.7, Aspartate Amino Transf (AST/SGOT) 32, Alanine Aminotransferase (ALT/SGPT) 26, Alkaline Phosphatase 130, Total Protein 5.6, Albumin 2.4 04/11/18 11:09: Glucometer 151 04/11/18 16:09: Glucometer 196 04/11/18 20:37: Glucometer 232 04/12/18 05:47: Glucometer 109 04/12/18 11:19: Glucometer 117 04/12/18 15:37: Glucometer 150 04/12/18 20:27: Glucometer 173 04/13/18 05:26: Glucometer 215 04/13/18 11:23: Glucometer 154 04/13/18 16:32: Glucometer 208 04/13/18 20:37: Glucometer 118 04/14/18 05:44: Glucometer 142 04/14/18 10:53: Glucometer 170 04/14/18 16:03: Glucometer 288 04/14/18 20:14: Glucometer 153 04/15/18 04:58: Glucometer 197 04/15/18 05:40: White Blood Count 9.8, Red Blood Count 3.69, Hemoglobin 10.6, Hematocrit 32, Mean Corpuscular Volume 88, Mean Corpuscular Hemoglobin 29, Mean Corpuscular Hemoglobin Concent 33, Red Cell Distribution Width 17.6, Platelet Count 189, Mean Platelet Volume 11.3, Neutrophils (%) (Auto) 86, Lymphocytes (%) (Auto) 7, Monocytes (%) (Auto) 7, Eosinophils (%) (Auto) 1, Basophils (%) (Auto) 0, Neutrophils # (Auto) 8.4, Lymphocytes # (Auto) 0.6, Monocytes # (Auto) 0.7, Eosinophils # (Auto) 0.1, Basophils # (Auto) 0.0, Neutrophils % (Manual) 84, Lymphocytes % (Manual) 8, Monocytes % (Manual) 7, Eosinophils % (Manual) 1, Sodium Level 133, Potassium Level 4.4, Chloride Level 102, Carbon Dioxide Level 21, Anion Gap 10, Blood Urea Nitrogen 45, Creatinine 2.57, Estimat Glomerular Filtration Rate 26, BUN/Creatinine Ratio 18, Glucose Level 184, Calcium Level 8.4, Corrected Calcium 9.8, Magnesium Level 1.8, Total Bilirubin 0.8, Aspartate Amino Transf (AST/SGOT) 22, Alanine Aminotransferase (ALT/SGPT) 16, Alkaline Phosphatase 109, Total Protein 5.5, Albumin 2.3 04/15/18 10:53: Glucometer 113 04/15/18 16:22: Glucometer 131 04/15/18 20:41: Glucometer 121 04/16/18 05:00: White Blood Count 8.8, Red Blood Count 3.66, Hemoglobin 10.5, Hematocrit 32, Mean Corpuscular Volume 88, Mean Corpuscular Hemoglobin 29, Mean Corpuscular Hemoglobin Concent 33, Red Cell Distribution Width 17.4, Platelet Count 180, Mean Platelet Volume 11.2, Neutrophils (%) (Auto) 84, Lymphocytes (%) (Auto) 8, Monocytes (%) (Auto) 7, Eosinophils (%) (Auto) 1, Basophils (%) (Auto) 0, Neutrophils # (Auto) 7.4, Lymphocytes # (Auto) 0.7, Monocytes # (Auto) 0.6, Eosinophils # (Auto) 0.1, Basophils # (Auto) 0.0, Sodium Level 133, Potassium Level 4.6, Chloride Level 102, Carbon Dioxide Level 20, Anion Gap 11, Blood Urea Nitrogen 46, Creatinine 2.71, Estimat Glomerular Filtration Rate 24, BUN/ Creatinine Ratio 17, Glucose Level 142, Calcium Level 8.5, Corrected Calcium 9.9 , Total Bilirubin 1.1, Aspartate Amino Transf (AST/SGOT) 30, Alanine Aminotransferase (ALT/SGPT) 19, Alkaline Phosphatase 97, Total Protein 5.9, Albumin 2.3 04/16/18 11:38: Glucometer 156 04/16/18 16:30: Glucometer 198 04/16/18 20:23: Glucometer 183 04/17/18 05:48: Glucometer 84 04/17/18 09:25: Sodium Level 131, Potassium Level 5.0, Chloride Level 101, Carbon Dioxide Level 17, Anion Gap 13, Blood Urea Nitrogen 57, Creatinine 3.68, Estimat Glomerular Filtration Rate 17, BUN/Creatinine Ratio 15, Glucose Level 126, Lactic Acid Level 1.38, Calcium Level 8.4, Corrected Calcium 9.8, Total Bilirubin 1.0, Aspartate Amino Transf (AST/SGOT) 76, Alanine Aminotransferase (ALT/SGPT) 50, Alkaline Phosphatase 290, Troponin I 0.294, Total Protein 5.9, Albumin 2.3 04/17/18 09:50: White Blood Count 9.4, Red Blood Count 3.87, Hemoglobin 11.0, Hematocrit 34, Mean Corpuscular Volume 87, Mean Corpuscular Hemoglobin 28, Mean Corpuscular Hemoglobin Concent 33, Red Cell Distribution Width 17.8, Platelet Count 196, Mean Platelet Volume 11.0, B-Type Natriuretic Peptide 3181.3 04/17/18 10:04: Glucometer 116 04/17/18 10:57: Glucometer 121 04/17/18 12:12: Glucometer 144 04/17/18 14:18: Phosphorus Level 6.2, Ammonia 35, Thyroid Stimulating Hormone (TSH) 5.63, Cortisol PM Sample 39.1 Discharge Home Medications: Active Scripts Active Reported Atorvastatin Calcium 80 Mg Tablet 80 Mg PO DAILY Zoloft (Sertraline HCl) 50 Mg Tablet 50 Mg PO DAILY PRN LAST FILLED #30 18-18 Lasix (Furosemide) 40 Mg Tablet 40 Mg PO DAILY LAST FILLED #60 -3-18 Coreg (Carvedilol) 3.125 Mg Tablet 3.125 Mg PO DAILY Cheratussin AC Syrup (Guaifenesin/Codeine Phosphate) 118 Ml Liquid 5 Ml PO Q4H PRN Levemir Flextouch (Insulin Detemir) 100 Unit/1 Ml Insuln.pen 14 Unit SQ DAILY Novolog Flexpen (Insulin Aspart) 300 Units/3 Ml Solution 12-16 Units SQ TIDAC Hydrocodon-Acetaminophn 10-325 (Hydrocodone/Acetaminophen) 1 Each Tablet 1 Tab PO Q4H PRN Probiotic (L.acidoph & Paracasei,B.lactis) 1 Each Capsule 1 Cap PO BID Amiodarone HCl 200 Mg Tablet 200 Mg PO DAILY Isosorbide Mononitrate ER (Isosorbide Mononitrate) 30 Mg Tab.er.24h 30 Mg PO DAILY Levothyroxine Sodium 200 Mcg Tablet 200 Mcg PO DAILY Nitroglycerin 0.4 Mg Tab.subl 0.4 Mg SL UD PRN Clopidogrel (Clopidogrel Bisulfate) 75 Mg Tablet 75 Mg PO DAILY Aspirin EC (Aspirin) 81 Mg Tablet.dr 81 Mg PO DAILY Instructions to patient/family Please see electronic discharge instructions given to patient. Diagnosis/Problems Diagnosis/Problems (1) Amput below knee, unilat Status: Acute (2) CKD (chronic kidney disease) stage 3, GFR 30-59 ml/min Status: Chronic (3) Anemia in chronic kidney disease Status: Chronic (4) Ischemic cardiomyopathy Status: Chronic (5) Essential (primary) hypertension Status: Chronic (6) PVD (peripheral vascular disease) Status: Chronic (7) Dyspnea Status: Acute Qualifiers: Qualified Codes: R06.00 - Dyspnea, unspecified (8) Urinary retention Status: Acute (9) Insulin dependent diabetes mellitus Status: Chronic (10) Gastroparesis Status: Chronic (11) Infected incision Status: Acute Clinical Quality Measures DVT/VTE Risk/Contraindication: Risk Factor Score Per Nursin RFS Level Per Nursing on Admit: 4+=Very High ABIODUN SOLANO DO Apr 17, 2018 18:14
--- NOTE | 2018-04-21 09:18 | Physician Query Clarification ---
PQ-CHF Specificity The medical record reflects the following clinical scenario: History/Risk Factors: DM PVD S/P LT BKA, CKD, systolic CHF Clinical Findings: BNP 3181 Treatment: Transferred to ICU Question: Can you further specify the acuity &/or type of CHF per the clinical indicators above? Please document a response below PHYSICIAN RESPONSE Acuity: Acute on Chronic Type: Clinically undetermined In responding to this query, please exercise your independent professional judgment. The purpose of this communication is to more accurately reflect the complexity of your patients condition. The fact that a question is asked does not imply that any particular answer is desired or expected. Thank you for your timely response to this clarification. Requestors name: Ebenezer THIS PHYSICIAN QUERY FORM IS A PERMANENT PART OF THE MEDICAL RECORD EBENEZER GERMAN Apr 21, 2018 09:18 ABIODUN SOLANO DO Apr 21, 2018 09:59
== END 2018-04-17 12:00 | disposition short-term general hospital (02) | DRG 299 ==
PROVIDERS: ADMIT Internal Medicine; ATTEND Internal Medicine
DX: E11.51 Type 2 diabetes mellitus with diabetic peripheral angiopathy without gangrene (principal); L97.529 Non-pressure chronic ulcer of other part of left foot with unspecified severity; E11.22 Type 2 diabetes mellitus with diabetic chronic kidney disease; Z89.512 Acquired absence of left leg below knee; N18.3 Chronic kidney disease, stage 3 (moderate); I13.0 Hypertensive heart and chronic kidney disease with heart failure and stage 1 through stage 4 chronic kidney disease, or unspecified chronic kidney disease; E11.59 Type 2 diabetes mellitus with other circulatory complications; I25.10 Atherosclerotic heart disease of native coronary artery without angina pectoris; I50.23 Acute on chronic systolic (congestive) heart failure; I25.5 Ischemic cardiomyopathy; N17.9 Acute kidney failure, unspecified; T87.44 Infection of amputation stump, left lower extremity; E11.43 Type 2 diabetes mellitus with diabetic autonomic (poly)neuropathy; I48.0 Paroxysmal atrial fibrillation; R00.1 Bradycardia, unspecified; D63.1 Anemia in chronic kidney disease; R33.9 Retention of urine, unspecified; F17.210 Nicotine dependence, cigarettes, uncomplicated; I65.23 Occlusion and stenosis of bilateral carotid arteries; F43.10 Post-traumatic stress disorder, unspecified; F41.0 Panic disorder [episodic paroxysmal anxiety]; J44.9 Chronic obstructive pulmonary disease, unspecified; K21.9 Gastro-esophageal reflux disease without esophagitis; E03.9 Hypothyroidism, unspecified; E78.5 Hyperlipidemia, unspecified; T24.122A Burn of first degree of left knee, initial encounter; T31.10 Burns involving 10-19% of body surface with 0% to 9% third degree burns; Z95.1 Presence of aortocoronary bypass graft; Z95.810 Presence of automatic (implantable) cardiac defibrillator; Z79.4 Long term (current) use of insulin
CPT/HCPCS: 36415; 71045; 80048; 80053; 82140; 82533; 82962; 83605; 83735; 83880; 84100; 84443; 84484; 85007; 85025; 85027; 93005; 93306; 94640; 94760

== ENCOUNTER 2018-04-17 11:55 | Inpatient (IN) | payer MEDICARE, OTHER ==
[2018-04-17] VITALS (22 sets, daily range): BP systolic 64–145; BP diastolic 25–94
[~2018-04-17] VITALS: Ht 177.8 cm; Wt 108.4 kg
[~2018-04-17 11:55] MED LIST changes: +MIDAZOLAM 5 MG/5 ML (VERSED) VIAL IJ ONE; +NALOXONE 0.4 MG/ML 1 ML (NARCAN) VIAL IV ONE; +SODIUM BICARB 8.4% 50 MEQ/50 ML (ABBOTT) SYR INJ ONE
--- NOTE | 2018-04-17 12:07 | History & Physical-Hospitalist ---
History of Present Illness HPI/Chief Complaint CC: Hypotension and Hypoxia and AMS HPI: This is a 57yoWM clinic patient of [facility] w/h/o inoperable CAD and PVD who was transferred from IRF due to hypothermia and altered mental status. Pt was given IVF in IRF along with Narcan with improved status but transferred to ICU along with Dr Devi for observation but continued to decline requiring Dr Devi and Dr Roy consultation and subsequent intubation. He adamantly refuses dialysis and that is documented in my notes both clinic and hospital. Updated son Zander and he will see the patient soon. Appreciate all consultants help. Source: patient Date Seen 04/17/18 Time Seen by a Provider: 12:00 Attending Physician Ivet Solano DO PCP Ivet Solano DO Referring Physician Date of Admission Home Medications & Allergies Home Medications Reviewed patient Home Medication Reconciliation performed by pharmacy medication reconciliations camera technician and/or nursing. Patients Allergies have been reviewed. Allergies Allergies Coded Allergies oxycodone HCl (Verified Allergy, Unknown, HAS RECEIVED HYDROMORPHONE W/O ISSUE , 01/01/18) protamine (Verified Allergy, Unknown, 01/01/18) Past Wlecdax-Ifldyp-Xbbrfx Hx Past Med/Social Hx: Reviewed Nursing Past Med/Soc Hx, Reviewed and Corrections made Patient Social History Marrital Status: single Employed/Student: unemployed Alcohol Beverage of Choice: Beer Smoking Status: Current Everyday Smoker Former Smoker, Quit: May 29, 2017 Type Used: Cigars Recent Foreign Travel: No Contact w/other who traveled: No Recent Hopitalizations: No (LEFT BKA) Immunizations Up To Date Tetanus Booster (TDap): Unknown Seasonal Allergies Seasonal Allergies: No Past Medical History Surgeries: CABG, Gallbladder, Orthopedic, Vascular Surgery Respiratory: COPD, Pneumonia Currently Using CPAP: No Currently Using BIPAP: No Cardiac: Chronic Edema/Swelling, Coronary Artery Disease, Heart Attack, High Cholesterol, Hypertension, Peripheral Vascular Neurological: Neuropathy Reproductive: No Sexually Transmitted Disease: No HIV/AIDS: No Genitourinary: Renal Failure Gastrointestinal: Gastroesophageal Reflux Musculoskeletal: Amputee, Arthritis, Chronic Back Pain Endocrine: Diabetes, Insulin dep, Hypothyroidsim HEENT: Cataract Loss of Vision: Left Hearing Impairment: Denies Psychosocial: Sleep Difficulties Skin/Integumentary: Recent Skin Changes History of Blood Disorders: No Adverse Reaction to Blood Turner: No Family History Alzheimer's disease 19 FATHER BLOOD Cardiovascular disease 19 MOTHER Diabetes mellitus 19 FATHER G8 SISTER FH: blood disorder G8 SISTER (SPECULATION) Hypertension 19 MOTHER Myocardial infarction 19 MOTHER No Pertinent Family Hx Review of Systems ROS-Unable to Obtain: confusion precludes details Constitutional: see HPI Physical Exam Physical Exam Vital Signs Vital Signs - First Documented 04/17/18 12:00 Pulse 41 Resp 18 B/P (MAP) 90/55 (67) O2 Delivery Nasal Cannula O2 Flow Rate 2.00 Capillary Refill : Height, Weight, BMI Height: 5'10.00" Weight: 220lbs. 11.2oz. 99.754324gm; 30.6 BMI Method:Stated General Appearance: WD/WN, Moderate Distress, Other (pale confused) Respiratory: Chest Non Tender, Lungs Clear, Normal Breath Sounds, No Accessory Muscle Use, No Respiratory Distress Cardiovascular: Regular Rate, Rhythm, No Edema, No Gallop, No JVD, No Murmur, Normal Peripheral Pulses Neurologic/Psychiatric: Disoriented Skin: Cool, Damp Results Results/Procedures Labs Patient resulted labs reviewed. Assessment/Plan Admission Diagnosis Assessment: Hypovolumic shock from diarrhea and poor PO intake Severely poor status chronically CRF refuses dialysis Plan: IVF Intubation Poor prognosis Admission Status: Inpatient Order (span 2 midnights) Reason for Inpatient Admission: ICU care Diagnosis/Problems Diagnosis/Problems (1) Hypovolemic shock Status: Acute (2) Ventilator dependent Status: Acute (3) Respiratory failure Status: Acute Qualifiers: Chronicity: acute Respiratory failure complication: hypoxia Qualified Codes: J96.01 - Acute respiratory failure with hypoxia IVET SOLANO DO Apr 17, 2018 12:07
[2018-04-17] MEDS ORDERED: LIDOCAINE UROJET 2% GEL 10 ML PKG ONE (12:15)
[2018-04-17 12:16] LABS: ABG BASE EXCESS -10.4 MMOL/L (-2.5-2.5); ABG OXYGEN SATURATION 99 % (94-100); ABG PCO2 21 MMHG (35-45); ABG PH 7.43 (7.37-7.43); ABG PO2 124 MMHG (79-93); ABG TCO2 14.2 MMOL/L (21.0-31.0)
[2018-04-17 12:23] LABS: ALLENS TEST YES-POS; INSPIRED O2 2L; VENTILATOR NO
[2018-04-17 12:24] LABS: PATIENT TEMP 95.8
[2018-04-17] MEDS ORDERED: proPOfol 200 MG/20 ML (DIPRIVAN) VIAL IV ONE (12:37)
[2018-04-17] MEDS ORDERED: NOREPINEPHRINE 4 MG/4 ML (LEVOPHED) AMP IV ONE (12:42)
[2018-04-17] MEDS ORDERED: D5W IV SOLUTION (EXCEL) 250 ML IV ONE (12:42)
[2018-04-17] MEDS ORDERED: PROPOFOL DRIP (ICU) 100 ML IV ONE ×2 (12:45→18:18)
--- NOTE | 2018-04-17 13:35 | Diagnostic Imaging Report ---
INDICATION: Status post intubation. TIME OF EXAMINATION: 12:56 p.m. COMPARISON: Correlation is made with prior study earlier same day. FINDINGS: Changes of median sternotomy and CABG are noted. The patient has been intubated. ET tube has tip above the razia. NG tube appears to pass below the diaphragm. There is a right chest wall port with tip overlying the SVC. There is a cardiac defibrillator in place. The heart is enlarged. Bilateral infiltrates have increased since earlier today. Infiltrates appear to be perihilar as well as in the right lower lobe and left lower lobe. Moderate consolidation in the left base is noted. There is no pneumothorax. IMPRESSION: 1. Satisfactory endotracheal tube and nasogastric tube placement. 2. Worsening bilateral pulmonary infiltrates. Dictated by: Dictated on workstation # [id number]
[2018-04-17] MEDS: NS IV 1000 ML 1,000 ML IV SCH ×2 (14:01→22:22)
--- NOTE | 2018-04-17 14:02 | Anesthesia-Procedure Note ---
Procedures/Interventions Procedure Start/Stop/Diagnosis Date of Procedure: Apr 17, 2018 Start Time: 13:35 Referring Physician: Isaiah Preprocedural Diagnosis: intubated/ vent dependant Stop Time: 13:45 Arterial Line Arterial Line Catheter: 22G Type: Radial Location: Left Procedure: prepped, draped in sterile fashion, good wave-form was obtained, patient tolerated procedure well, no immediate complications, post procedure area cleaned (chloraprep), post procedure dressing applied (opsite/secured with silk tape) Additional Procedures Procedures x 1 attempt on right radial artery by EMY. x 1 attempt by HANS on left. Secured. Good waveform. Propofol infusion running, bolus of 100mg IV in divided doses given throughout to reduce patient movement/ facilitate procedure. SHAWNEE GARCIA CRNA Apr 17, 2018 14:02
[2018-04-17] MEDS ORDERED: NOREPINEPHRINE 4 MG in NS (IVPB) 250 ML IV SCH (14:30)
--- NOTE | 2018-04-17 14:35 | Pulmonary Consultation ---
History of Present Illness History of Present Illness Date of Consultation 04/17/18 14:26 Time Seen by Provider: 11:00 Date of Admission History of Present Illness 57yo with hx of CKD, tobacco use, DM, PVD admitted to rehab unit for PT/OT. Dr. Colon called me to rehab unit stat secondary to patient becoming lethargic and hypotensive. Pt was given Narcan prior to my arrival and was awake/talking upon my arrival. PT is hypoxic at 83% on RA. He was placed on a NC and improved to 90 's. secondary to hypotension and lethargy pt was transferred to ICU for close monitoring. Unable to obtain ROS secondary to lethargy. Allergies and Home Medications Allergies Coded Allergies: oxycodone HCl (Verified Allergy, Unknown, HAS RECEIVED HYDROMORPHONE W/O ISSUE, 01/01/18) protamine (Verified Allergy, Unknown, 01/01/18) Home Medications Amiodarone HCl 200 Mg Tablet, 200 MG PO DAILY, (Reported) Aspirin 81 Mg Tablet.dr, 81 MG PO DAILY, (Reported) Atorvastatin Calcium 80 Mg Tablet, 80 MG PO DAILY, (Reported) Carvedilol 3.125 Mg Tablet, 3.125 MG PO DAILY, (Reported) Clopidogrel Bisulfate 75 Mg Tablet, 75 MG PO DAILY, (Reported) Furosemide 40 Mg Tablet, 40 MG PO DAILY, (Reported) LAST FILLED #60 18 Guaifenesin/Codeine Phosphate 118 Ml Liquid, 5 ML PO Q4H PRN for COUGH, ( Reported) Hydrocodone/Acetaminophen 1 Each Tablet, 1 TAB PO Q4H PRN for PAIN-MODERATE, ( Reported) Insulin Aspart 300 Units/3 Ml Solution, 12-16 UNITS SQ TIDAC, (Reported) Insulin Detemir 100 Unit/1 Ml Insuln.pen, 14 UNIT SQ DAILY, (Reported) Isosorbide Mononitrate 30 Mg Tab.er.24h, 30 MG PO DAILY, (Reported) L.acidoph & Paracasei,B.lactis 1 Each Capsule, 1 CAP PO BID, (Reported) Levothyroxine Sodium 200 Mcg Tablet, 200 MCG PO DAILY, (Reported) Nitroglycerin 0.4 Mg Tab.subl, 0.4 MG SL UD PRN for CHEST PAIN, (Reported) Sertraline HCl 50 Mg Tablet, 50 MG PO DAILY PRN for MOOD, (Reported) LAST FILLED #30 10-18-18 Past Zhuxuyw-Jcojpp-Uehxrd Hx Past Med/Social Hx: Reviewed Nursing Past Med/Soc Hx, Reviewed and Corrections made Patient Social History Alcohol Use: Denies Use Number of Drinks Today: AA Alcohol Beverage of Choice: Beer Recreational Drug Use: No Smoking Status: Current Everyday Smoker Type Used: Cigars Former Smoker, Quit: May 29, 2017 Recent Foreign Travel: No Contact w/Someone Who Travel: No Recent Hopitalizations: No (LEFT BKA) Immunizations Up To Date Tetanus Booster (TDap): Unknown Date of Influenza Vaccine: Feb 13, 2018 Seasonal Allergies Seasonal Allergies: No Past Medical History Surgeries: Yes (BUNIONECTOMY BILAT FEET; LEFT BIG TOE AND ONE NEXT TO IT, ALL TOES ON RIGHT) CABG, Gallbladder, Orthopedic, Vascular Surgery Respiratory: Yes Sleep Apnea Currently Using CPAP: No Currently Using BIPAP: No Cardiac: Yes Chronic Edema/Swelling, Coronary Artery Disease, Heart Attack, High Cholesterol , Hypertension, Peripheral Vascular Neurological: Yes Neuropathy Reproductive Disorders: No Sexually Transmitted Disease: No HIV/AIDS: No Genitourinary: Yes Renal Failure Gastrointestinal: No (OCC REFLUX) Gastroesophageal Reflux Musculoskeletal: Yes (RIGHT FOOT TOES AMPUTEE 06/08/16, 1ST AND 2ND LEFT TOES) Amputee, Arthritis, Chronic Back Pain Endocrine: Yes Diabetes, Insulin dep, Hypothyroidsim HEENT: Yes Cataract Loss of Vision: Left Hearing Impairment: Denies Cancer: No Psychosocial: Yes Sleep Difficulties Integumentary: Yes (hx of diabetic ulcer) Recent Skin Changes Blood Disorders: No Adverse Reaction/Blood Tranf: No Family Medical History Alzheimer's disease 19 FATHER BLOOD Cardiovascular disease 19 MOTHER Diabetes mellitus 19 FATHER G8 SISTER FH: blood disorder G8 SISTER (SPECULATION) Hypertension 19 MOTHER Myocardial infarction 19 MOTHER No Pertinent Family Hx Review of Systems Time Seen by Provider: 14:35 Sepsis Event Evaluation Height, Weight, BMI Height: 5'10.00" Weight: 220lbs. 11.2oz. 100.019488iy; 31.7 BMI Method:Stated Exam Exam Vital Signs Date Time Temp Pulse Resp B/P (MAP) Pulse Ox O2 Delivery O2 Flow Rate FiO2 04/17/18 14:00 93 Mechanical Ventilator 04/17/18 12:44 93 24 100 100 04/17/18 12:30 95 112/94 (100) OxyMask 8.00 04/17/18 12:15 49 9 79/46 (57) Nasal Cannula 2.00 04/17/18 12:03 49 04/17/18 12:00 41 18 90/55 (67) Nasal Cannula 2.00 Height & Weight Height: 5'10.00" Weight: 220lbs. 11.2oz. 100.674304ms; 31.7 BMI Method:Stated General Appearance: WD/WN, Moderate Distress, Other (pale confused) Respiratory: Chest Non Tender, Lungs Clear, Normal Breath Sounds, No Accessory Muscle Use, No Respiratory Distress Cardiovascular: Regular Rate, Rhythm, No Edema, No Gallop, No JVD, No Murmur, Normal Peripheral Pulses Capillary Refill: Less Than 3 Seconds Gastrointestinal: normal bowel sounds, non tender, soft Neurologic/Psychiatric: Disoriented Skin: Cool, Damp Assessment/Plan Assessment/Plan Metabolic encephalopathy -pt improved after Narcan -TSH, ammonia level -Dilauded/hydrocodone dose was decreased Hypotension probably from dehydration -NS 1 liter bolus Hypoxia -Check CXR -check ABG Infected left foot diabetic ulcer s/p left BKA POD #9 CHF -cardiology consulted. Severe PVD CKD - pt refuses HD CAD with hx of CABG tobacco use urinary retention -continue johnson Transfer to ICU with close monitoring I ÁNGELA LEE DO Apr 17, 2018 14:35
[2018-04-17 14:40] LABS: BASOPHILS % (AUTO) 0 % (0-10); EOSINOPHILS % (AUTO) 0 % (0-10); HEMATOCRIT 31 % (40-54); HEMOGLOBIN 10.3 G/DL (13.3-17.7); LYMPHOCYTES # (AUTO) 0.3 X 10^3 (1.0-4.0); LYMPHOCYTES % (AUTO) 4 % (12-44); MEAN CORPUSCULAR HEMOGLOBIN 29 PG (25-34); MEAN CORPUSCULAR HGB CONC 33 G/DL (32-36); MEAN CORPUSCULAR VOLUME 86 FL (80-99); MEAN PLATELET VOLUME 11.5 FL (7.4-10.4); MONOCYTES # (AUTO) 0.3 X 10^3 (0.0-1.0); MONOCYTES % (AUTO) 4 % (0-12); NEUTROPHILS # (AUTO) 6.2 X 10^3 (1.8-7.8); NEUTROPHILS % (AUTO) 91 % (42-75); PLATELET COUNT 151 10^3/uL (130-400); RED CELL DISTRIBUTION WIDTH 17.7 % (10.0-14.5); WHITE BLOOD COUNT 6.8 10^3/uL (4.3-11.0)
--- NOTE | 2018-04-17 14:43 | Pulmonary Progress Note ---
Subjective Time Seen by a Provider: 12:45 Subjective/Events-last exam Called to ICU emergently secondary to pt becoming unresponsive and agonal breathing. Sepsis Event Evaluation Height, Weight, BMI Height: 5'10.00" Weight: 220lbs. 11.2oz. [id number]; 31.7 BMI Method:Stated Exam Exam Vital Signs Date Time Temp Pulse Resp B/P (MAP) Pulse Ox O2 Delivery O2 Flow Rate FiO2 04/17/18 14:00 93 Mechanical Ventilator 04/17/18 12:44 93 24 100 100 04/17/18 12:30 95 112/94 (100) OxyMask 8.00 04/17/18 12:15 49 9 79/46 (57) Nasal Cannula 2.00 04/17/18 12:03 49 04/17/18 12:00 41 18 90/55 (67) Nasal Cannula 2.00 Height & Weight Height: 5'10.00" Weight: 220lbs. 11.2oz. [id number]; 31.7 BMI Method:Stated General Appearance: WD/WN, Severe Distress, Other (pale confused) HEENT: PERRL/EOMI, Other (MMD) Respiratory: Chest Non Tender, Accessory Muscle Use, Decreased Breath Sounds, Respiratory Distress Cardiovascular: Regular Rate, Rhythm, No Edema, No Gallop, No JVD, No Murmur, Normal Peripheral Pulses Capillary Refill: Less Than 3 Seconds Gastrointestinal: normal bowel sounds, non tender, soft Neurologic/Psychiatric: Disoriented Skin: Cool, Damp Assessment/Plan Assessment/Plan Acute respiratory failure -Narcan 0.5mg given however did not improve symptoms this time. - I called Dr. Colon to confirm code status. Pt is a full code. I proceeded with intubation after repeat dose of narcan had no effect . -Metabolic encephalopathy -TSH, ammonia level -Dilauded/hydrocodone dose was decreased Hypotension r/o sepsis -NS 1 liter bolus -Levophed Hypoxia -Check CXR -check ABG Infected left foot diabetic ulcer s/p left BKA POD #9 CHF -cardiology consulted. Severe PVD CKD - pt refuses HD CAD with hx of CABG tobacco use urinary retention -continue johnson Time spent with patient, medical staff not including intubation is 60min ICU time. UpDATE 1450: Pt is on 20mcg of propofol and Levophed has also been started. CXR shows worsening pulmonary congestion probably secondary to CHF. I am going to switch Levophed to Dopamine. HR is in the 50's currently. Labs still pending. RN waited for art line to get stat labs. I suspect pt still has metabolic acidosis and probably severe. I am going to give another 2 amps of bicarb. ÁNGELA LEE DO Apr 17, 2018 14:43
--- NOTE | 2018-04-17 15:00 | Pulmonary Procedures ---
Pulmonary Procedures Date of Procedure Date of Service: Apr 17, 2018 Reason for Intubation: acute respiratoary failure Time of Intubation: 13:00 Intubation Method: orotracheal (with Glidoscope) Tube Size: 8 Medications: Propofol, Versed Positive End Tide CO2: Yes Breath Sounds after Intubation: bilateral-equal Intubation Complications: no complications Post Intubation Xray: Yes ÁNGELA LEE DO Apr 17, 2018 15:00
[2018-04-17 15:01] LABS: ALBUMIN 1.9 GM/DL (3.2-4.5); BILIRUBIN,TOTAL 1.3 MG/DL (0.1-1.0); CALCIUM 7.3 MG/DL (8.5-10.1); CREATININE SERUM 3.42 MG/DL (0.60-1.30); MAGNESIUM 1.6 MG/DL (1.8-2.4); POTASSIUM 4.5 MMOL/L (3.6-5.0)
[2018-04-17 15:18] LABS: ABG BASE EXCESS -7.2 MMOL/L (-2.5-2.5); ABG OXYGEN SATURATION 99 % (94-100); ABG PCO2 30 MMHG (35-45); ABG PH 7.37 (7.37-7.43); ABG PO2 231 MMHG (79-93); ABG TCO2 18.3 MMOL/L (21.0-31.0)
[2018-04-17] MEDS: HYDROCORTISONE 100 MG/2 ML (Solu-CORTEF) VIAL IV SCH ×2 (15:19→22:23)
[2018-04-17 15:23] LABS: ALLENS TEST YES-POS; INSPIRED O2 65%; PATIENT TEMP 96.4; VENTILATOR YES
--- NOTE | 2018-04-17 15:26 | NUR ---
TIME LINE NOTE: PATIENT BROUGHT UP TO ICU 9 AT APPROX 1145 FROM ARU. PATIENT ALERT ET ORIENTED AT THIS TIME, TALKING WITH STAFF. PATIENT ON O2 AT 5L, UNABLE TO GET O2 SAT. RT PRESENT ET 4 RN. PATIENT PLACED ON OXYMAX, CATHETER PLACED BY ARU RN. PATIENT WENT UNRESPONSIVE APPROX. 1220. DR. LEE ET DR. SOLANO BOTH CALLED. ROSA ARRIVED TO UNIT 1236 NARCAN 0.4MG ADMINISTERED 1238 2 AMP SODIUM BICARB ADMINISTERED 1242 DR GREER ET DR SOLANO ARRIVED TO PATIENT ROOM 1243 4 MG OF VERSED ADMINISTERED 1243 5ML PROPOFOL ADMINISTERED BY DR. LEE 1244 PATIENT INTUBATED WITH #8 ETT 22 @ TEETH 1247 TV 500 R-16 PEEP 5 1252 10MCG/KG/MIN DIPRIVAN GTT INITIATED 1254 OG 18F PLACED 1256 XRAY AT BEDSIDE TO CONFIRM PLACEMENT
[2018-04-17] MEDS ORDERED: SODIUM BICARB 8.4% 50 MEQ/50 ML (ABBOTT) SYR IV NR (15:30)
[2018-04-17] MEDS: DOPamine DRIP 250 ML IV SCH ×2 (18:08→22:23)
[2018-04-17 18:55] LABS: CLARITY,URINE CLEAR; COLOR,URINE YELLOW; GLUCOSE, URINE (UA) NEGATIVE (NEGATIVE); KETONES,URINE 1+ (NEGATIVE); LEUKOCYTE ESTERASE ,URINE 1+ (NEGATIVE); NITRITE,URINE NEGATIVE (NEGATIVE); PH,URINE 5 (5-9); PROTEIN,URINE 3+ (NEGATIVE); UROBILINOGEN,URINE 1 MG/DL (NORMAL)
[2018-04-17 19:05] LABS: BACTERIA,URINE FEW /HPF; BILIRUBIN,URINE 1+ (NEGATIVE); WBC,URINE 0-2 /HPF
[2018-04-17] MEDS: PROPOFOL DRIP (ICU) 100 ML IV SCH (19:57)
--- NOTE | 2018-04-17 20:08 | Progress Note ---
Subjective Date Seen by a Provider: Apr 17, 2018 Time Seen by a Provider: 13:15 Subjective/Events-last exam Patient transferred from rehab to icu for hypotension and hypoxia. Was then intubated due to decline in status. Patient intubated and sedated. No family at beside at this time. Focused Exam Lactate Level 04/17/18 15:55: Lactic Acid Level 2.17*H 04/17/18 17:55: Lactic Acid Level 1.83 Lactic Acid Level Laboratory Tests Test 04/17/18 17:55 Lactic Acid Level 1.83 MMOL/L (0.50-2.00) Objective Exam Vital Signs Date Time Temp Pulse Resp B/P (MAP) Pulse Ox O2 Delivery O2 Flow Rate FiO2 04/17/18 19:57 86 127/56 04/17/18 19:33 87 19 96 50 04/17/18 18:26 81 107/43 04/17/18 18:09 49 17 98 50 04/17/18 18:08 49 16 94/42 99 04/17/18 18:00 49 15 123/67 (85) 98 Mechanical Ventilator 65.00 112/40 (64) 04/17/18 17:00 49 16 121/66 (84) 98 Mechanical Ventilator 65.00 107/39 (61) 04/17/18 16:05 49 23 100 60 04/17/18 16:00 49 21 114/66 (82) 95 Mechanical Ventilator 65.00 74/67 (69) 04/17/18 15:00 49 13 109/65 (80) 100 Mechanical Ventilator 65.00 92/36 (54) 04/17/18 14:30 93 81/56 (64) 99 Mechanical Ventilator 65.00 64/25 (38) 04/17/18 14:29 94 19 99 60 04/17/18 14:00 93 78/52 (61) 98 Mechanical Ventilator 65.00 04/17/18 14:00 93 Mechanical Ventilator 04/17/18 13:30 93 91/60 (70) 95 04/17/18 13:10 93 04/17/18 13:00 93 109/71 (84) 99 04/17/18 12:44 93 24 100 100 04/17/18 12:30 95 112/94 (100) OxyMask 8.00 04/17/18 12:15 49 9 79/46 (57) Nasal Cannula 2.00 1/24/19 12:03 49 04/17/18 12:00 41 18 90/55 (67) Nasal Cannula 2.00 Capillary Refill : Less Than 3 Seconds General Appearance: WD/WN, Other (intubated/sedated) HEENT: PERRL/EOMI, Other (MMD) Respiratory: No Accessory Muscle Use, No Respiratory Distress, Decreased Breath Sounds, Other (intubated) Cardiovascular: Regular Rate, Rhythm Gastrointestinal: normal bowel sounds, non tender, soft Extremity: Other (left bka with slight erythema, same as yesterday, provena vac in place) Neurologic/Psychiatric: Disoriented, Other (intubated sedated) Skin: Cool, Damp Results Lab Laboratory Tests 04/17/18 12:05: Blood Gas Puncture Site RT RAD, Blood Gas Patient Temperature 95.8, Arterial Blood pH 7.43, Arterial Blood Partial Pressure CO2 21L, Arterial Blood Partial Pressure O2 124H, Arterial Blood HCO3 14*L, Arterial Blood Total CO2 14.2L, Arterial Blood Oxygen Saturation 99, Arterial Blood Base Excess -10.4L, Moshe Test YES-POS, Blood Gas Ventilator Setting NO, Blood Gas Inspired Oxygen 2L 04/17/18 14:30: White Blood Count 6.8, Red Blood Count 3.57L, Hemoglobin 10.3L, Hematocrit 31L, Mean Corpuscular Volume 86, Mean Corpuscular Hemoglobin 29, Mean Corpuscular Hemoglobin Concent 33, Red Cell Distribution Width 17.7H, Platelet Count 151, Mean Platelet Volume 11.5H, Neutrophils (%) (Auto) 91H, Lymphocytes (%) (Auto) 4L, Monocytes (%) (Auto) 4, Eosinophils (%) (Auto) 0, Basophils (%) (Auto) 0, Neutrophils # (Auto) 6.2, Lymphocytes # (Auto) 0.3L, Monocytes # (Auto) 0.3, Eosinophils # (Auto) 0.0, Basophils # (Auto) 0.0, Sodium Level 138, Potassium Level 4.5, Chloride Level 107, Carbon Dioxide Level 17L, Anion Gap 14, Blood Urea Nitrogen 55H, Creatinine 3.42H, Estimat Glomerular Filtration Rate 19, BUN/ Creatinine Ratio 16, Glucose Level 138H, Calcium Level 7.3L, Corrected Calcium 9.0, Phosphorus Level 6.0H, Magnesium Level 1.6L, Total Bilirubin 1.3H, Aspartate Amino Transf (AST/SGOT) 313H, Alanine Aminotransferase (ALT/SGPT) 148H , Alkaline Phosphatase 480H, Total Protein 5.0L, Albumin 1.9L 04/17/18 15:01: Blood Gas Puncture Site L RAD, Blood Gas Patient Temperature 96.4, Arterial Blood pH 7.37, Arterial Blood Partial Pressure CO2 30L, Arterial Blood Partial Pressure O2 231H, Arterial Blood HCO3 17*L, Arterial Blood Total CO2 18.3L, Arterial Blood Oxygen Saturation 99, Arterial Blood Base Excess -7.2L, Moshe Test YES-POS, Blood Gas Ventilator Setting YES, Blood Gas Inspired Oxygen 65% 04/17/18 15:55: Lactic Acid Level 2.17*H 04/17/18 17:55: Lactic Acid Level 1.83 04/17/18 18:50: Urine Color YELLOW, Urine Clarity CLEAR, Urine pH 5, Urine Specific [place] 1.025H, Urine Protein 3+H, Urine Glucose (UA) NEGATIVE, Urine Ketones 1+H, Urine Nitrite NEGATIVE, Urine Bilirubin 1+H, Urine Urobilinogen 1, Urine Leukocyte Esterase 1+H, Urine RBC (Auto) 4+H, Urine RBC 10-25H, Urine WBC 0-2, Urine Squamous Epithelial Cells 2-5, Urine Crystals NONE, Urine Bacteria FEWH, Urine Casts NONE, Urine Mucus NEGATIVE, Urine Culture Indicated NO Microbiology 04/17/18 C. difficile GDH Antigen & Toxins - Final, Complete Assessment/Plan Assessment/Plan Assessment/Plan hypotension, hypoxia, respiratory failure, s/p left bka chest x ray with pulmonary infiltrates left bka appears the same as yesterday continue abx Intubated and sedated Clinical Quality Measures DVT/VTE Risk/Contraindication: Risk Factor Score Per Nursin RFS Level Per Nursing on Admit: 4+=Very High LEIGH ANN FUCHS DO Apr 17, 2018 20:08
[2018-04-18] VITALS (37 sets, daily range): BP systolic 106–150; BP diastolic 42–76
[2018-04-18] MEDS: PROPOFOL DRIP (ICU) 100 ML IV SCH ×6 (00:32→21:18)
[2018-04-18 04:17] LABS: BASOPHILS % (AUTO) 0 % (0-10); EOSINOPHILS % (AUTO) 0 % (0-10); HEMATOCRIT 34 % (40-54); HEMOGLOBIN 11.5 G/DL (13.3-17.7); LYMPHOCYTES # (AUTO) 0.6 X 10^3 (1.0-4.0); LYMPHOCYTES % (AUTO) 4 % (12-44); MEAN CORPUSCULAR HEMOGLOBIN 29 PG (25-34); MEAN CORPUSCULAR HGB CONC 34 G/DL (32-36); MEAN CORPUSCULAR VOLUME 85 FL (80-99); MEAN PLATELET VOLUME 10.6 FL (7.4-10.4); MONOCYTES # (AUTO) 0.6 X 10^3 (0.0-1.0); MONOCYTES % (AUTO) 4 % (0-12); NEUTROPHILS # (AUTO) 13.3 X 10^3 (1.8-7.8); NEUTROPHILS % (AUTO) 92 % (42-75); PLATELET COUNT 227 10^3/uL (130-400); RED CELL DISTRIBUTION WIDTH 17.5 % (10.0-14.5); WHITE BLOOD COUNT 14.5 10^3/uL (4.3-11.0)
[2018-04-18 04:18] LABS: ABG BASE EXCESS -5.5 MMOL/L (-2.5-2.5); ABG OXYGEN SATURATION 99 % (94-100); ABG PCO2 29 MMHG (35-45); ABG PH 7.41 (7.37-7.43); ABG PO2 122 MMHG (79-93); ABG TCO2 19.5 MMOL/L (21.0-31.0)
[2018-04-18 04:22] LABS: ALLENS TEST ART LINE; INSPIRED O2 40%; VENTILATOR YES
[2018-04-18 04:35] LABS: CALCIUM 8.1 MG/DL (8.5-10.1); CREATININE SERUM 3.45 MG/DL (0.60-1.30); MAGNESIUM 2.1 MG/DL (1.8-2.4); PHOSPHORUS 6.9 MG/DL (2.3-4.7); POTASSIUM 4.4 MMOL/L (3.6-5.0)
[2018-04-18] MEDS: MAGNESIUM 1 GM/100 ML IVPB 100 ML IV SCH (05:04)
[2018-04-18] MEDS: POTASSIUM CL 10MEQ/50ML IVPB 50 ML IV SCH (05:04)
[2018-04-18] MEDS: KCL 20 MEQ TAB (K-DUR) PO SCH (05:04)
--- NOTE | 2018-04-18 05:34 | Pulmonary Progress Note ---
Subjective Time Seen by a Provider: 05:48 Subjective/Events-last exam UO is only 20 cc/hr. He is currently sedated on vent. Sepsis Event Evaluation Height, Weight, BMI Height: 5'10.00" Weight: 220lbs. 11.2oz. 100.810549ua; 31.7 BMI Method:Stated Focused Exam Lactate Level 04/17/18 15:55: Lactic Acid Level 2.17*H 04/17/18 17:55: Lactic Acid Level 1.83 Exam Exam Vital Signs Date Time Temp Pulse Resp B/P (MAP) Pulse Ox O2 Delivery O2 Flow Rate FiO2 04/18/18 05:10 75 04/18/18 05:00 65 17 134/48 (76) 98 Mechanical Ventilator 40.00 04/18/18 04:04 71 14 143/51 (81) 98 Mechanical Ventilator 40.00 04/18/18 04:00 99 Mechanical Ventilator 40 04/18/18 04:00 96.0 04/18/18 03:00 73 14 138/49 (78) 98 Mechanical Ventilator 40.00 04/18/18 02:17 71 16 134/49 (77) 98 Mechanical Ventilator 40.00 04/18/18 02:04 72 22 99 50 04/18/18 02:00 71 14 140/50 (80) 99 Mechanical Ventilator 50.00 04/18/18 01:00 76 16 132/51 (78) 99 Mechanical Ventilator 50.00 04/18/18 01:00 76 04/18/18 00:32 87 04/18/18 00:07 82 24 99 50 04/18/18 00:00 96.0 04/18/18 00:00 99 Mechanical Ventilator 65 04/18/18 00:00 80 15 145/58 (87) 99 Mechanical Ventilator 50.00 04/17/18 23:00 83 13 144/61 (88) 99 Mechanical Ventilator 50.00 04/17/18 22:23 86 145/62 04/17/18 22:00 84 17 141/61 (87) 98 Mechanical Ventilator 50.00 04/17/18 21:52 87 20 98 50 04/17/18 21:00 86 13 144/63 (90) 89 Mechanical Ventilator 50.00 04/17/18 20:00 96.6 04/17/18 20:00 99 Mechanical Ventilator 65 04/17/18 20:00 85 14 129/57 (81) 94 Mechanical Ventilator 50.00 04/17/18 20:00 87 14 117/52 (73) 98 Mechanical Ventilator 50.00 04/17/18 19:57 86 127/56 04/17/18 19:33 87 19 96 50 04/17/18 19:00 87 04/17/18 19:00 87 14 134/79 (97) 98 Mechanical Ventilator 50.00 117/52 (73) 04/17/18 18:26 81 107/43 04/17/18 18:23 80/38 04/17/18 18:18 89/35 04/17/18 18:13 88/38 04/17/18 18:09 49 17 98 50 04/17/18 18:08 49 16 94/42 99 04/17/18 18:00 49 15 123/67 (85) 98 Mechanical Ventilator 65.00 112/40 (64) 04/17/18 17:00 49 16 121/66 (84) 98 Mechanical Ventilator 65.00 107/39 (61) 04/17/18 16:05 49 23 100 60 04/17/18 16:00 49 21 114/66 (82) 95 Mechanical Ventilator 65.00 74/67 (69) 04/17/18 16:00 96.8 04/17/18 16:00 99 Mechanical Ventilator 65 04/17/18 15:00 49 13 109/65 (80) 100 Mechanical Ventilator 65.00 92/36 (54) 04/17/18 14:30 93 81/56 (64) 99 Mechanical Ventilator 65.00 64/25 (38) 04/17/18 14:29 94 19 99 60 04/17/18 14:00 93 78/52 (61) 98 Mechanical Ventilator 65.00 04/17/18 14:00 93 Mechanical Ventilator 04/17/18 13:30 93 91/60 (70) 95 04/17/18 13:10 93 04/17/18 13:00 93 109/71 (84) 99 04/17/18 12:44 93 24 100 100 04/17/18 12:30 95 112/94 (100) OxyMask 8.00 04/17/18 12:15 49 9 79/46 (57) Nasal Cannula 2.00 04/17/18 12:03 49 04/17/18 12:00 41 18 90/55 (67) Nasal Cannula 2.00 I & O 04/18/18 07:00 Intake Total 200 ml Output Total 1555 ml Balance -1355 ml Height & Weight Height: 5'10.00" Weight: 220lbs. 11.2oz. 100.419724bp; 31.7 BMI Method:Stated General Appearance: WD/WN, Other (intubated/sedated) HEENT: PERRL/EOMI, Other (MMD) Respiratory: No Accessory Muscle Use, No Respiratory Distress, Decreased Breath Sounds, Other (intubated) Cardiovascular: Regular Rate, Rhythm Capillary Refill: Less Than 3 Seconds Gastrointestinal: normal bowel sounds, non tender, soft Extremity: Other (left bka with slight erythema, same as yesterday, provena vac in place) Neurologic/Psychiatric: Disoriented, Other (intubated sedated) Skin: Cool, Damp Results Lab Laboratory Tests 04/17/18 14:30 04/18/18 04:00 Assessment/Plan Assessment/Plan Acute respiratory failure -Continue vent -Metabolic encephalopathy Hypotension r/o sepsis -NS 1 liter bolus -Dopamine Acute on chronic renal failure with metabolic acidosis and decreased UO is 20cc/ hr -Continue NS for now -Family is most likely going to make pt DIRECTOR CLIENT today. Hypoxia -Check CXR -check ABG Infected left foot diabetic ulcer s/p left BKA POD #9 CHF -cardiology consulted. Severe PVD CKD - pt refuses HD CAD with hx of CABG tobacco use urinary retention -continue johnson I discussed patient with RN and family. Pt would never want HD. Family is strongly considering comfort care only. I answered all of their questions and they are going to let us know when they are ready for comfort care only. I am also going to consult piece dye worker. ÁNGELA LEE DO Apr 18, 2018 05:34
[2018-04-18] MEDS ORDERED: SODIUM BICARBONATE 8.4% VIAL 100 MEQ in 1/2 NS IV SOLUTION 1,000 ML IV SCH (05:45)
[2018-04-18] MEDS ORDERED: ENOXAPARIN 40 MG/0.4 ML (LOVENOX) SYR SC SCH (05:45)
[2018-04-18] MEDS: inSUlin ASPART (NovoLOG) 1 UNIT/0.01 ML (CHARGE PER UNIT) SC SCH ×4 (06:09→18:57)
[2018-04-18] MEDS: HYDROCORTISONE 100 MG/2 ML (Solu-CORTEF) VIAL IV SCH ×3 (06:12→21:19)
[2018-04-18] MEDS ORDERED: RT-ALBUTEROL/IPRATROPIUM 3 ML (DUONEB) VIAL INH PRN (06:15)
[2018-04-18] MEDS: fentaNYL INJECTION 1,250 MCG in NS (IVPB) 250 ML IV SCH ×2 (07:26→16:07)
[2018-04-18] MEDS: NS IV 1000 ML 1,000 ML IV SCH ×3 (07:30→21:18)
--- NOTE | 2018-04-18 08:27 | Consultation-Cardiology ---
HPI-Cardiology Cardiology Consultation Date of Consultation 04/18/18 Date of Admission Time Seen by Provider: 08:22 Indication: acute respiratory failure HPI 57 years old gentleman with extensive history of coronary artery disease, peripheral arterial disease, chronic renal insufficiency, underwent BKA and was in acute rehabilitation unit. Became less responsive yesterday, deteriorated into respiratory failure and change in mental status, patient was transferred to the intensive care unit and intubated. Was hypotensive and started on levo fed then changed to dopamine, this morning he is ventilator dependent, moving his upper extremities, sedated, blood pressure is better. Unable to provide any further history Home Medications & Allergies Allergies: Coded Allergies: oxycodone HCl (Verified Allergy, Unknown, HAS RECEIVED HYDROMORPHONE W/O ISSUE, 01/01/18) protamine (Verified Allergy, Unknown, 01/01/18) Home Medication List Reviewed: Yes TIK-[id number] Hx Patient Social History Marital Status: single Employed/Student: unemployed Alcohol Use: Denies Use Recreational Drug Use: No Smoking Status: Current Everyday Smoker Former smoker/When Quit: Jun 23, 2012 Type Used: Cigars Recent Foreign Travel: No Recent Hopitalizations: No (LEFT BKA) Physical Abuse Screen: No Sexual Abuse: No Immunizations Up To Date Tetanus Booster (TDap): Unknown Date of Influenza Vaccine: Feb 13, 2018 Past Medical History past medical history as described below Family Medical History Significant Family History: No Pertinent Family Hx Family History: Alzheimer's disease 19 FATHER BLOOD Cardiovascular disease 19 MOTHER Diabetes mellitus 19 FATHER G8 SISTER FH: blood disorder G8 SISTER (SPECULATION) Hypertension 19 MOTHER Myocardial infarction 19 MOTHER Review of Systems Constitutional: other (patient is sedated and intubated, unable to provide review of systems) Reviewed Test Results Reviewed Test Results Lab Laboratory Tests Test 04/17/18 12:05 04/17/18 14:30 04/17/18 15:01 04/17/18 15:55 Range/Units Blood Gas Puncture Site RT RAD L RAD Blood Gas Patient Temperature 95.8 96.4 Arterial Blood pH 7.43 7.37 7.37-7.43 Arterial Blood Partial Pressure CO2 21 L 30 L 35-45 MMHG Arterial Blood Partial Pressure O2 124 H 231 H 79-93 MMHG Arterial Blood HCO3 14 *L 17 *L 23-27 MMOL/L Arterial Blood Total CO2 14.2 L 18.3 L 21.0-31.0 MMOL/L Arterial Blood Oxygen Saturation 99 99 94-100 % Arterial Blood Base Excess -10.4 L -7.2 L -2.5-2.5 MMOL/L Moshe Test YES-POS YES-POS Blood Gas Ventilator Setting NO YES Blood Gas Inspired Oxygen 2L 65% White Blood Count 6.8 4.3-11.0 10^3/uL Red Blood Count 3.57 L 4.35-5.85 10^6/uL Hemoglobin 10.3 L 13.3-17.7 G/DL Hematocrit 31 L 40-54 % Mean Corpuscular Volume 86 80-99 FL Mean Corpuscular Hemoglobin 29 25-34 PG Mean Corpuscular Hemoglobin Concent 33 32-36 G/DL Red Cell Distribution Width 17.7 H 10.0-14.5 % Platelet Count 151 130-400 10^3/uL Mean Platelet Volume 11.5 H 7.4-10.4 FL Neutrophils (%) (Auto) 91 H 42-75 % Lymphocytes (%) (Auto) 4 L 12-44 % Monocytes (%) (Auto) 4 0-12 % Eosinophils (%) (Auto) 0 0-10 % Basophils (%) (Auto) 0 0-10 % Neutrophils # (Auto) 6.2 1.8-7.8 X 10^3 Lymphocytes # (Auto) 0.3 L 1.0-4.0 X 10^3 Monocytes # (Auto) 0.3 0.0-1.0 X 10^3 Eosinophils # (Auto) 0.0 0.0-0.3 10^3/uL Basophils # (Auto) 0.0 0.0-0.1 10^3/uL Sodium Level 138 135-145 MMOL/L Potassium Level 4.5 3.6-5.0 MMOL/L Chloride Level 107 98-107 MMOL/L Carbon Dioxide Level 17 L 21-32 MMOL/L Anion Gap 14 5-14 MMOL/L Blood Urea Nitrogen 55 H 7-18 MG/DL Creatinine 3.42 H 0.60-1.30 MG/DL Estimat Glomerular Filtration Rate 19 BUN/Creatinine Ratio 16 Glucose Level 138 H 70-105 MG/DL Calcium Level 7.3 L 8.5-10.1 MG/DL Corrected Calcium 9.0 8.5-10.1 MG/DL Phosphorus Level 6.0 H 2.3-4.7 MG/DL Magnesium Level 1.6 L 1.8-2.4 MG/DL Total Bilirubin 1.3 H 0.1-1.0 MG/DL Aspartate Amino Transf (AST/SGOT) 313 H 5-34 U/L Alanine Aminotransferase (ALT/SGPT) 148 H 0-55 U/L Alkaline Phosphatase 480 H 40-136 U/L Total Protein 5.0 L 6.4-8.2 GM/DL Albumin 1.9 L 3.2-4.5 GM/DL Lactic Acid Level 2.17 *H 0.50-2.00 MMOL/L Test 04/17/18 17:55 04/17/18 18:50 04/18/18 00:43 04/18/18 04:00 Range/Units Lactic Acid Level 1.83 0.50-2.00 MMOL/L Urine Color YELLOW Urine Clarity CLEAR Urine pH 5 5-9 Urine Specific [place] 1.025 H 1.016-1.022 Urine Protein 3+ H NEGATIVE Urine Glucose (UA) NEGATIVE NEGATIVE Urine Ketones 1+ H NEGATIVE Urine Nitrite NEGATIVE NEGATIVE Urine Bilirubin 1+ H NEGATIVE Urine Urobilinogen 1 NORMAL MG/DL Urine Leukocyte Esterase 1+ H NEGATIVE Urine RBC (Auto) 4+ H NEGATIVE Urine RBC 10-25 H /HPF Urine WBC 0-2 /HPF Urine Squamous Epithelial Cells 2-5 /HPF Urine Crystals NONE /LPF Urine Bacteria FEW H /HPF Urine Casts NONE /LPF Urine Mucus NEGATIVE /LPF Urine Culture Indicated NO Glucometer 183 H 70-110 MG/DL White Blood Count 14.5 H 4.3-11.0 10^3/uL Red Blood Count 4.00 L 4.35-5.85 10^6/uL Hemoglobin 11.5 L 13.3-17.7 G/DL Hematocrit 34 L 40-54 % Mean Corpuscular Volume 85 80-99 FL Mean Corpuscular Hemoglobin 29 25-34 PG Mean Corpuscular Hemoglobin Concent 34 32-36 G/DL Red Cell Distribution Width 17.5 H 10.0-14.5 % Platelet Count 227 130-400 10^3/uL Mean Platelet Volume 10.6 H 7.4-10.4 FL Neutrophils (%) (Auto) 92 H 42-75 % Lymphocytes (%) (Auto) 4 L 12-44 % Monocytes (%) (Auto) 4 0-12 % Eosinophils (%) (Auto) 0 0-10 % Basophils (%) (Auto) 0 0-10 % Neutrophils # (Auto) 13.3 H 1.8-7.8 X 10^3 Lymphocytes # (Auto) 0.6 L 1.0-4.0 X 10^3 Monocytes # (Auto) 0.6 0.0-1.0 X 10^3 Eosinophils # (Auto) 0.0 0.0-0.3 10^3/uL Basophils # (Auto) 0.0 0.0-0.1 10^3/uL Blood Gas Puncture Site ART LINE Blood Gas Patient Temperature 96.0 Arterial Blood pH 7.41 7.37-7.43 Arterial Blood Partial Pressure CO2 29 L 35-45 MMHG Arterial Blood Partial Pressure O2 122 H 79-93 MMHG Arterial Blood HCO3 19 L 23-27 MMOL/L Arterial Blood Total CO2 19.5 L 21.0-31.0 MMOL/L Arterial Blood Oxygen Saturation 99 94-100 % Arterial Blood Base Excess -5.5 L -2.5-2.5 MMOL/L Moshe Test ART LINE Blood Gas Ventilator Setting YES Blood Gas Inspired Oxygen 40% Sodium Level 138 135-145 MMOL/L Potassium Level 4.4 3.6-5.0 MMOL/L Chloride Level 103 98-107 MMOL/L Carbon Dioxide Level 16 L 21-32 MMOL/L Anion Gap 19 H 5-14 MMOL/L Blood Urea Nitrogen 60 H 7-18 MG/DL Creatinine 3.45 H 0.60-1.30 MG/DL Estimat Glomerular Filtration Rate 18 BUN/Creatinine Ratio 17 Glucose Level 232 H 70-105 MG/DL Calcium Level 8.1 L 8.5-10.1 MG/DL Phosphorus Level 6.9 H 2.3-4.7 MG/DL Magnesium Level 2.1 1.8-2.4 MG/DL Physical Exam Vital Signs Vital Signs - First Documented 04/17/18 04/17/18 04/17/18 12:00 12:44 16:00 Temp 96.8 Pulse 41 Resp 18 B/P (MAP) 90/55 (67) Pulse Ox 100 O2 Delivery Nasal Cannula O2 Flow Rate 2.00 FiO2 100 Capillary Refill : Less Than 3 Seconds Height, Weight, BMI Height: 5'10.00" Weight: 240lbs. 11.2oz. 108.238829md; 31.7 BMI Method:Stated General Appearance: WD/WN, Severe Distress Eyes: Bilateral Eye Normal Inspection, Bilateral Eye PERRL, Bilateral Eye EOMI HEENT: PERRL/EOMI, TMs Normal, Normal ENT Inspection, Pharynx Normal Neck: Normal Inspection, Carotid Bruit, JVD Respiratory: Chest Non Tender, Crackles, Decreased Breath Sounds Cardiovascular: Regular Rate, Rhythm, Systolic Murmur, Gallop/S3, JVD Gastrointestinal: No Organomegaly, No Pulsatile Mass, Non Tender, Soft, Abnormal Bowel Sounds Back: Normal Inspection Extremity: Swelling, Other (BKA, amputation of the toes) Neurologic/Psychiatric: Other (sedated and intubated) Skin: Normal Color, Warm/Dry Lymphatic: No Adenopathy A/P-Cardiology Admission Diagnosis Acute respiratory failure Acute liver failure Acute renal failure Acute on chronic congestive heart failure, ischemic cardiomyopathy Multiorgan failure Assessment/Plan Acute respiratory failure, pulmonary edema, questionable pneumonia, currently ventilator dependent. Hypotensive shock, maintained on dopamine, blood pressure is better, trying to wean him off dopamine Acute on chronic renal failure, worsening renal function with oliguria, urine output has picked up slightly today, I will initiate Lasix if blood pressure is stable. Change in mental status, encephalopathy secondary to hypoxemia, ventilatory dependent and sedated at this time, we will continue to monitor Coronary artery disease, extensive disease, history of CABG 4 done in 2008, last cardiac catheterization was done in January [address] Busch which showed patent OSBORNE to LAD, vein graft to the diagonal artery, vein graft to the obtuse marginal artery with small vessel disease, the right coronary artery has severe diffuse disease not amendable to intervention, medical therapy is recommended, it was felt that it will require significant amount of stenting with limited benefit Congestive heart failure, ischemic cardiomyopathy, acute on chronic left ventricular systolic dysfunction with ejection fraction 15-20 percent, currently decompensated, started to improve his urine output. Extensive peripheral arterial disease, multiple intervention in the past, inoperable extensive distal disease, had history of right toes amputation, underwent left BKA and receiving physical therapy Acute liver failure, probably secondary to hypotension and multiorgan failure. Paroxysmal atrial fibrillation, had episode noted on his ICD interrogation, short-lived, was maintained on amiodarone which will be held at this time due to elevated liver enzymes. Episodes of bradycardia, paced rhythm at 50, continue to monitor History of tobaccoism, reported recent smoking cessation. History of port placement on the right side, status post retrieval after fractured port in June 2016 Hyperlipidemia, was started on Lipitor 80 mg daily, currently on hold due to elevated liver enzymes Diabetes mellitus, followed and monitored by primary care physician. Mild bilateral nonobstructive carotid artery stenosis, last carotid ultrasound was done in December 2017, continue to monitor Prognosis is guarded, multiorgan failure, discussed with the family condition. Continue with aggressive measures at this time, patient indicated in the past that he does not want dialysis, at this point he does not require dialysis and appeared to be improving his urine output Clinical Quality Measures DVT/VTE Risk/Contraindication: Risk Factor Score Per Nursin RFS Level Per Nursing on Admit: 4+=Very High JORDEN GREER MD Apr 18, 2018 08:27
[2018-04-18] MEDS ORDERED: PANTOPRAZOLE 40 MG (PROTONIX) VIAL IV SCH (09:00)
--- NOTE | 2018-04-18 10:26 | Diagnostic Imaging Report ---
INDICATION: Intubation. Time of exam 3:16 AM Correlation is made with prior study one day earlier. Changes of median sternotomy are noted. Cardiac defibrillator remains in place. Endotracheal tube, nasogastric tube and right chest wall port remain in place. Partial clearing of bilateral infiltrates is noted with overall improved aeration. No significant effusion or pneumothorax is seen. Impression: There has been some improved aeration of both lungs when compared to examination one day earlier. Dictated by: Dictated on workstation # [id number]
[2018-04-18] MEDS: RT-ALBUTEROL/IPRATROPIUM 3 ML (DUONEB) VIAL INH SCH ×4 (10:36→21:04)
--- NOTE | 2018-04-18 11:13 | NUR ---
PALLIATIVE CARE RN in to see patient. He is intubated and on sedation currently. Brother and [id number] are in the room currently and I explained what I do. Awaiting sons arrival for decision making.
[2018-04-18] MEDS: DOPamine DRIP 250 ML IV SCH (11:32)
--- NOTE | 2018-04-18 11:40 | Progress Note-Hospitalist ---
Subjective HPI/CC On Admission Date Seen by Provider: Apr 18, 2018 Time Seen by Provider: 11:15 CC: Hypotension and Hypoxia and AMS HPI: This is a 57yoWM clinic patient of mine w/h/o inoperable CAD and PVD who was transferred from [facility] due to hypothermia and altered mental status. Pt was given IVF in IR[facility] along with Narcan with improved status but transferred to ICU along with Dr Devi for observation but continued to decline requiring Dr Devi and Dr Roy consultation and subsequent intubation. He adamantly refuses dialysis and that is documented in my notes both clinic and hospital. Updated son Zander and he will see the patient soon. Appreciate all consultants help. Subjective/Events-last exam Sedated on vent Family at bedside Pt would require dialysis and he has refused that multiple times in the past and will need NHP and he has refused that so will recommend terminal extubation tomorrow Son is DPOA Pt not in any pain Focused Exam Lactate Level 04/17/18 15:55: Lactic Acid Level 2.17*H 04/17/18 17:55: Lactic Acid Level 1.83 Objective Exam Vital Signs Vital Signs Date Time Temp Pulse Resp B/P (MAP) Pulse Ox O2 Delivery O2 Flow Rate FiO2 04/18/18 12:42 66 04/18/18 10:36 19 96 30 04/18/18 09:00 113/47 (69) Mechanical Ventilator 30.00 04/18/18 04:00 96.0 Capillary Refill : Less Than 3 Seconds General Appearance: No Apparent Distress, WD/WN, Chronically ill, Other ( sedated) Respiratory: Chest Non Tender, Lungs Clear, Normal Breath Sounds, No Accessory Muscle Use, No Respiratory Distress Cardiovascular: Regular Rate, Rhythm, No Edema, No Gallop, No JVD, No Murmur, Normal Peripheral Pulses Neurologic/Psychiatric: Other (sedated) Results/Procedures Lab Laboratory Tests 04/17/18 14:30 04/18/18 04:00 Patient resulted labs reviewed. Assessment/Plan Assessment and Plan Assess & Plan/Chief Complaint Assessment: Multisystem organ failure VDRF CRF refuses dialysis Plan: Recommend terminal extubation tomorrow Poor prognosis Diagnosis/Problems Diagnosis/Problems (1) Hypovolemic shock Status: Acute (2) Ventilator dependent Status: Acute (3) Respiratory failure Status: Acute Qualifiers: Chronicity: acute Respiratory failure complication: hypoxia Qualified Codes: J96.01 - Acute respiratory failure with hypoxia Clinical Quality Measures DVT/VTE Risk/Contraindication: Risk Factor Score Per Nursin RFS Level Per Nursing on Admit: 4+=Very High ABIODUN SOLANO DO Apr 18, 2018 11:40
--- NOTE | 2018-04-18 12:21 | NUR ---
Pt's brother, Hardik and [id number] requested visit. Pt presented intubated and nonresponsive to touch or voice throughout visit. Pt's [id number]-ck-[id number] said he squeezed her hand this morning while she talked to him. Family expressed hopes for pt's recovery in the "best case scenario," however expressed concerns about what the next steps would entail: pt has been consistently adamant in asserting he does not want to be in a [place] [facility] home for any reason, and that "it is a shelter." Hardik also quoted pt as saying "I will never do dialysis." Speaking of the emotional impact of being in a [place] [facility] home, Hardik wept and said "it would kill him." I offered active listening and encouraged the family to share stories about the patient. Themes in the family's stories included patient's value of independence, meaningful relationships, integrity and hard work. Pt is described as "a loner who loves people." Pt lived alone and enjoyed his solitude, yet met daily with a group of friends for donuts and coffee. Hardik said smiling, "he (pt) is hard-headed about everything. He did not care about what the donuts did to his diabetes. He enjoyed eating donuts, and he enjoyed his time with friends." Pt also spent time fishing, hunting, and working with his hands. Hardik said, "Zander was not yazidism but he was okay with praying. He attended [employer] faithfully for years, then suddenly quit going. We don't know what happened there." Offered prayer at bedside for pt and family.
[2018-04-19] VITALS (11 sets, daily range): BP systolic 94–132; BP diastolic 58–70
[2018-04-19] MEDS: inSUlin ASPART (NovoLOG) 1 UNIT/0.01 ML (CHARGE PER UNIT) SC SCH ×2 (00:05→05:18)
[2018-04-19] MEDS: RT-ALBUTEROL/IPRATROPIUM 3 ML (DUONEB) VIAL INH SCH (01:19)
[2018-04-19] MEDS: PROPOFOL DRIP (ICU) 100 ML IV SCH (02:54)
[2018-04-19 03:53] LABS: BASOPHILS % (AUTO) 0 % (0-10); EOSINOPHILS % (AUTO) 0 % (0-10); HEMATOCRIT 32 % (40-54); HEMOGLOBIN 10.7 G/DL (13.3-17.7); LYMPHOCYTES # (AUTO) 0.2 X 10^3 (1.0-4.0); LYMPHOCYTES % (AUTO) 2 % (12-44); MEAN CORPUSCULAR HEMOGLOBIN 29 PG (25-34); MEAN CORPUSCULAR HGB CONC 34 G/DL (32-36); MEAN CORPUSCULAR VOLUME 85 FL (80-99); MEAN PLATELET VOLUME 10.5 FL (7.4-10.4); MONOCYTES # (AUTO) 0.3 X 10^3 (0.0-1.0); MONOCYTES % (AUTO) 3 % (0-12); NEUTROPHILS # (AUTO) 10.8 X 10^3 (1.8-7.8); NEUTROPHILS % (AUTO) 95 % (42-75); PLATELET COUNT 236 10^3/uL (130-400); RED CELL DISTRIBUTION WIDTH 17.9 % (10.0-14.5); WHITE BLOOD COUNT 11.4 10^3/uL (4.3-11.0)
[2018-04-19 03:54] LABS: ABG BASE EXCESS -1.4 MMOL/L (-2.5-2.5); ABG OXYGEN SATURATION 97 % (94-100); ABG PCO2 32 MMHG (35-45); ABG PH 7.45 (7.37-7.43); ABG PO2 94 MMHG (79-93)
[2018-04-19 03:57] LABS: ALLENS TEST POSITIVE; INSPIRED O2 30%; PATIENT TEMP 98.2; VENTILATOR YES
[2018-04-19 04:18] LABS: CALCIUM 7.9 MG/DL (8.5-10.1); CREATININE SERUM 3.53 MG/DL (0.60-1.30); MAGNESIUM 2.3 MG/DL (1.8-2.4); PHOSPHORUS 6.1 MG/DL (2.3-4.7); POTASSIUM 4.4 MMOL/L (3.6-5.0)
[2018-04-19] MEDS: POTASSIUM CL 10MEQ/50ML IVPB 50 ML IV SCH (04:30)
[2018-04-19] MEDS: MAGNESIUM 1 GM/100 ML IVPB 100 ML IV SCH (04:31)
[2018-04-19] MEDS: KCL 20 MEQ TAB (K-DUR) PO SCH (04:31)
[2018-04-19] MEDS ORDERED: morphine INJ 4 MG/ML 1 ML (VIAL/SYRINGE) ONE (05:05)
--- NOTE | 2018-04-19 05:05 | NUR ---
Diprivan and Dopamine placed on hold status at this time per Dr Devi order. Dr Devi spoke with the family this am and they wish to proceed with comfort care. Will follow comfort care orders. Plan for extubation.
--- NOTE | 2018-04-19 05:13 | Pulmonary Consultation ---
History of Present Illness History of Present Illness Date of Consultation 04/19/18 04:59 Date of Admission Reason for Visit: acute respiratory failure History of Present Illness 57yo with hx of CKD, tobacco use, DM, PVD admitted to rehab unit for PT/OT. Dr. Colon called me to rehab unit stat secondary to patient becoming lethargic and hypotensive. Pt was given Narcan prior to my arrival and was awake/talking upon my arrival. PT is hypoxic at 83% on RA. He was placed on a NC and improved to 90 's. secondary to hypotension and lethargy pt was transferred to ICU for close monitoring. Unable to obtain ROS secondary to lethargy. Allergies and Home Medications Allergies Coded Allergies: oxycodone HCl (Verified Allergy, Unknown, HAS RECEIVED HYDROMORPHONE W/O ISSUE, 01/01/18) protamine (Verified Allergy, Unknown, 01/01/18) Home Medications Amiodarone HCl 200 Mg Tablet, 200 MG PO DAILY, (Reported) Aspirin 81 Mg Tablet.dr, 81 MG PO DAILY, (Reported) Atorvastatin Calcium 80 Mg Tablet, 80 MG PO DAILY, (Reported) Carvedilol 3.125 Mg Tablet, 3.125 MG PO DAILY, (Reported) Clopidogrel Bisulfate 75 Mg Tablet, 75 MG PO DAILY, (Reported) Furosemide 40 Mg Tablet, 40 MG PO DAILY, (Reported) LAST FILLED #60 18 Guaifenesin/Codeine Phosphate 118 Ml Liquid, 5 ML PO Q4H PRN for COUGH, ( Reported) Hydrocodone/Acetaminophen 1 Each Tablet, 1 TAB PO Q4H PRN for PAIN-MODERATE, ( Reported) Insulin Aspart 300 Units/3 Ml Solution, 12-16 UNITS SQ TIDAC, (Reported) Insulin Detemir 100 Unit/1 Ml Insuln.pen, 14 UNIT SQ DAILY, (Reported) Isosorbide Mononitrate 30 Mg Tab.er.24h, 30 MG PO DAILY, (Reported) L.acidoph & Paracasei,B.lactis 1 Each Capsule, 1 CAP PO BID, (Reported) Levothyroxine Sodium 200 Mcg Tablet, 200 MCG PO DAILY, (Reported) Nitroglycerin 0.4 Mg Tab.subl, 0.4 MG SL UD PRN for CHEST PAIN, (Reported) Sertraline HCl 50 Mg Tablet, 50 MG PO DAILY PRN for MOOD, (Reported) LAST FILLED #30 10-18-18 Past Pyxqlsh-Xwwqto-Yotmte Hx Past Med/Social Hx: Reviewed Nursing Past Med/Soc Hx, Reviewed and Corrections made Patient Social History Alcohol Use: Denies Use Number of Drinks Today: AA Alcohol Beverage of Choice: Beer Recreational Drug Use: No Smoking Status: Current Everyday Smoker Type Used: Cigars Former Smoker, Quit: May 29, 2017 Recent Foreign Travel: No Contact w/Someone Who Travel: No Recent Hopitalizations: No (LEFT BKA) Immunizations Up To Date Tetanus Booster (TDap): Unknown Date of Influenza Vaccine: Feb 13, 2018 Seasonal Allergies Seasonal Allergies: No Past Medical History Surgeries: Yes (BUNIONECTOMY BILAT FEET; LEFT BIG TOE AND ONE NEXT TO IT, ALL TOES ON RIGHT) CABG, Gallbladder, Orthopedic, Vascular Surgery Respiratory: Yes Sleep Apnea Currently Using CPAP: No Currently Using BIPAP: No Cardiac: Yes Chronic Edema/Swelling, Coronary Artery Disease, Heart Attack, High Cholesterol , Hypertension, Peripheral Vascular Neurological: Yes Neuropathy Reproductive Disorders: No Sexually Transmitted Disease: No HIV/AIDS: No Genitourinary: Yes Renal Failure Gastrointestinal: No (OCC REFLUX) Gastroesophageal Reflux Musculoskeletal: Yes (RIGHT FOOT TOES AMPUTEE 06/08/16, 1ST AND 2ND LEFT TOES) Amputee, Arthritis, Chronic Back Pain Endocrine: Yes Diabetes, Insulin dep, Hypothyroidsim HEENT: Yes Cataract Loss of Vision: Left Hearing Impairment: Denies Cancer: No Psychosocial: Yes Sleep Difficulties Integumentary: Yes (hx of diabetic ulcer) Recent Skin Changes Blood Disorders: No Adverse Reaction/Blood Tranf: No Family Medical History Alzheimer's disease 19 FATHER BLOOD Cardiovascular disease 19 MOTHER Diabetes mellitus 19 FATHER G8 SISTER FH: blood disorder G8 SISTER (SPECULATION) Hypertension 19 MOTHER Myocardial infarction 19 MOTHER No Pertinent Family Hx Review of Systems Time Seen by Provider: 05:14 Sepsis Event Evaluation Height, Weight, BMI Height: 5'10.00" Weight: 240lbs. 11.2oz. 108.874694eh; 31.7 BMI Method:Stated Exam Exam Vital Signs Date Time Temp Pulse Resp B/P (MAP) Pulse Ox O2 Delivery O2 Flow Rate FiO2 04/19/18 04:00 68 21 132/61 (84) 95 Mechanical Ventilator 30.00 04/19/18 03:45 70 22 95 30 04/19/18 03:45 98.2 68 27 129/60 (83) 96 Mechanical Ventilator 30.00 04/19/18 03:45 96 Mechanical Ventilator 30 04/19/18 03:00 65 21 116/62 (80) 95 Mechanical Ventilator 30.00 04/19/18 02:54 65 16 120/61 95 Mechanical Ventilator 30.00 04/19/18 02:00 65 28 126/61 (82) 95 Mechanical Ventilator 30.00 04/19/18 01:19 64 22 95 30 04/19/18 01:00 64 23 127/61 (83) 96 Mechanical Ventilator 30.00 04/19/18 01:00 64 04/19/18 00:00 96 Mechanical Ventilator 30 04/19/18 00:00 65 22 122/59 (80) 96 Mechanical Ventilator 30.00 04/18/18 23:49 98.2 Mechanical Ventilator 30.00 04/18/18 23:00 66 22 119/59 (79) 99 Mechanical Ventilator 30.00 04/18/18 22:55 65 23 97 30 04/18/18 22:00 67 22 109/55 (73) 96 Mechanical Ventilator 30.00 04/18/18 21:18 69 20 108/54 96 Mechanical Ventilator 30.00 04/18/18 21:04 66 22 96 30 04/18/18 21:00 67 21 110/55 (73) 96 Mechanical Ventilator 30.00 04/18/18 20:10 95 Mechanical Ventilator 30 04/18/18 20:00 99.1 72 20 106/53 (70) 95 Mechanical Ventilator 30.00 04/18/18 19:00 73 23 115/50 (71) 96 Mechanical Ventilator 30.00 04/18/18 19:00 74 04/18/18 18:33 71 22 95 30 04/18/18 18:00 71 20 106/47 (66) 95 Mechanical Ventilator 30.00 04/18/18 17:00 71 29 107/48 (67) 94 Mechanical Ventilator 30.00 04/18/18 16:57 71 21 95 30 04/18/18 16:14 98 Mechanical Ventilator 30 04/18/18 16:07 72 04/18/18 16:00 72 27 106/46 (66) 94 Mechanical Ventilator 30.00 04/18/18 15:00 70 19 106/44 (64) 95 Mechanical Ventilator 30.00 04/18/18 14:12 70 19 95 30 1/25/19 14:00 70 17 113/47 (69) 94 Mechanical Ventilator 30.00 04/18/18 13:03 70 04/18/18 13:00 70 18 116/46 (69) 95 Mechanical Ventilator 30.00 04/18/18 12:54 70 19 95 30 04/18/18 12:42 66 04/18/18 12:00 98 Mechanical Ventilator 30 04/18/18 12:00 67 18 116/47 (70) 94 Mechanical Ventilator 30.00 04/18/18 11:32 60 04/18/18 11:00 66 19 114/45 (68) 92 Mechanical Ventilator 30.00 04/18/18 10:36 62 19 96 30 04/18/18 10:00 62 17 117/46 (69) 96 Mechanical Ventilator 30.00 04/18/18 09:12 62 04/18/18 09:00 61 15 113/47 (69) 96 Mechanical Ventilator 30.00 04/18/18 08:18 70 18 96 30 04/18/18 08:14 97 Mechanical Ventilator 30 04/18/18 08:12 77 04/18/18 08:00 73 16 133/47 (75) 96 Mechanical Ventilator 30.00 04/18/18 07:39 76 04/18/18 07:00 72 16 133/46 (75) 96 Mechanical Ventilator 30.00 04/18/18 06:30 91 18 96 30 04/18/18 06:00 71 16 140/50 (80) 96 Mechanical Ventilator 30.00 04/18/18 05:33 71 13 142/51 (81) 98 Mechanical Ventilator 30.00 04/18/18 05:10 75 04/18/18 05:00 65 17 134/48 (76) 98 Mechanical Ventilator 40.00 I & O 04/19/18 07:00 Intake Total 1710 ml Output Total 660 ml Balance 1050 ml Height & Weight Height: 5'10.00" Weight: 240lbs. 11.2oz. 108.924313nm; 31.7 BMI Method:Stated General Appearance: No Apparent Distress, WD/WN, Chronically ill, Other ( sedated) HEENT: PERRL/EOMI, TMs Normal, Normal ENT Inspection, Pharynx Normal Neck: Normal Inspection, Carotid Bruit, JVD Respiratory: Chest Non Tender, Lungs Clear, Normal Breath Sounds, No Accessory Muscle Use, No Respiratory Distress Cardiovascular: Regular Rate, Rhythm, No Edema, No Gallop, No JVD, No Murmur, Normal Peripheral Pulses Capillary Refill: Less Than 3 Seconds Gastrointestinal: normal bowel sounds, non tender, soft Extremity: Swelling, Other (BKA, amputation of the toes) Neurologic/Psychiatric: Other (sedated) Skin: Normal Color, Warm/Dry Lymphatic: No Adenopathy Results Lab Laboratory Tests 04/17/18 14:30 04/18/18 04:00 04/19/18 03:44 Assessment/Plan Assessment/Plan Acute respiratory failure -vent -Metabolic encephalopathy Hypotension r/o sepsis Acute on chronic renal failure with metabolic acidosis- worsening -Continue NS for now Hypoxia Infected left foot diabetic ulcer s/p left BKA POD #9 CHF -cardiology consulted. Severe PVD CKD - pt refuses HD CAD with hx of CABG tobacco use urinary retention -continue [place] Discussed with family and they would like to proceed with comfort care only. They understand by withdrawing vent and medical support he will sooner however will be comfortable. Family wants to proceed with extubation. I have also discussed pt with Dr. Colon who knows patient and family very well. She is also in agreement with Comfort Measures Only. I am going to proceed with extubation after Angelique is d/c'remy. ÁNGELA LEE DO Apr 19, 2018 05:13
[2018-04-19] MEDS ORDERED: morphine INJ 10 MG/ML 1ML (SYR OR VIAL) IVP ONE (05:15)
--- NOTE | 2018-04-19 05:17 | Pulmonary Progress Note ---
Subjective Time Seen by a Provider: 05:16 Subjective/Events-last exam PT is currently sedated on vent. Family at bedside. They would like to proceed with comfort measures only and extubate patient. Sepsis Event Evaluation Height, Weight, BMI Height: 5'10.00" Weight: 239lbs. 0.0oz. 108.641999wr; 31.7 BMI Method:Stated Focused Exam Lactate Level 04/17/18 15:55: Lactic Acid Level 2.17*H 04/17/18 17:55: Lactic Acid Level 1.83 Exam Exam Vital Signs Date Time Temp Pulse Resp B/P (MAP) Pulse Ox O2 Delivery O2 Flow Rate FiO2 04/19/18 04:00 68 21 132/61 (84) 95 Mechanical Ventilator 30.00 04/19/18 03:45 70 22 95 30 04/19/18 03:45 98.2 68 27 129/60 (83) 96 Mechanical Ventilator 30.00 04/19/18 03:45 96 Mechanical Ventilator 30 04/19/18 03:00 65 21 116/62 (80) 95 Mechanical Ventilator 30.00 04/19/18 02:54 65 16 120/61 95 Mechanical Ventilator 30.00 04/19/18 02:00 65 28 126/61 (82) 95 Mechanical Ventilator 30.00 04/19/18 01:19 64 22 95 30 04/19/18 01:00 64 23 127/61 (83) 96 Mechanical Ventilator 30.00 04/19/18 01:00 64 04/19/18 00:00 96 Mechanical Ventilator 30 04/19/18 00:00 65 22 122/59 (80) 96 Mechanical Ventilator 30.00 04/18/18 23:49 98.2 Mechanical Ventilator 30.00 04/18/18 23:00 66 22 119/59 (79) 99 Mechanical Ventilator 30.00 04/18/18 22:55 65 23 97 30 04/18/18 22:00 67 22 109/55 (73) 96 Mechanical Ventilator 30.00 04/18/18 21:18 69 20 108/54 96 Mechanical Ventilator 30.00 04/18/18 21:04 66 22 96 30 04/18/18 21:00 67 21 110/55 (73) 96 Mechanical Ventilator 30.00 04/18/18 20:10 95 Mechanical Ventilator 30 04/18/18 20:00 99.1 72 20 106/53 (70) 95 Mechanical Ventilator 30.00 04/18/18 19:00 73 23 115/50 (71) 96 Mechanical Ventilator 30.00 04/18/18 19:00 74 04/18/18 18:33 71 22 95 30 04/18/18 18:00 71 20 106/47 (66) 95 Mechanical Ventilator 30.00 04/18/18 17:00 71 29 107/48 (67) 94 Mechanical Ventilator 30.00 04/18/18 16:57 71 21 95 30 04/18/18 16:14 98 Mechanical Ventilator 30 04/18/18 16:07 72 04/18/18 16:00 72 27 106/46 (66) 94 Mechanical Ventilator 30.00 04/18/18 15:00 70 19 106/44 (64) 95 Mechanical Ventilator 30.00 04/18/18 14:12 70 19 95 30 04/18/18 14:00 70 17 113/47 (69) 94 Mechanical Ventilator 30.00 04/18/18 13:03 70 04/18/18 13:00 70 18 116/46 (69) 95 Mechanical Ventilator 30.00 04/18/18 12:54 70 19 95 30 04/18/18 12:42 66 04/18/18 12:00 98 Mechanical Ventilator 30 04/18/18 12:00 67 18 116/47 (70) 94 Mechanical Ventilator 30.00 04/18/18 11:32 60 04/18/18 11:00 66 19 114/45 (68) 92 Mechanical Ventilator 30.00 04/18/18 10:36 62 19 96 30 04/18/18 10:00 62 17 117/46 (69) 96 Mechanical Ventilator 30.00 04/18/18 09:12 62 04/18/18 09:00 61 15 113/47 (69) 96 Mechanical Ventilator 30.00 04/18/18 08:18 70 18 96 30 04/18/18 08:14 97 Mechanical Ventilator 30 04/18/18 08:12 77 04/18/18 08:00 73 16 133/47 (75) 96 Mechanical Ventilator 30.00 04/18/18 07:39 76 04/18/18 07:00 72 16 133/46 (75) 96 Mechanical Ventilator 30.00 04/18/18 06:30 91 18 96 30 04/18/18 06:00 71 16 140/50 (80) 96 Mechanical Ventilator 30.00 04/18/18 05:33 71 13 142/51 (81) 98 Mechanical Ventilator 30.00 I & O 04/19/18 07:00 Intake Total 1710 ml Output Total 660 ml Balance 1050 ml Height & Weight Height: 5'10.00" Weight: 239lbs. 0.0oz. 108.111336vg; 31.7 BMI Method:Stated General Appearance: No Apparent Distress, WD/WN, Chronically ill, Other ( sedated) HEENT: PERRL/EOMI, TMs Normal, Normal ENT Inspection, Pharynx Normal Neck: Normal Inspection, Carotid Bruit, JVD Respiratory: Chest Non Tender, Lungs Clear, Normal Breath Sounds, No Accessory Muscle Use, No Respiratory Distress Cardiovascular: Regular Rate, Rhythm, No Edema, No Gallop, No JVD, No Murmur, Normal Peripheral Pulses Capillary Refill: Less Than 3 Seconds Gastrointestinal: normal bowel sounds, non tender, soft Extremity: Swelling, Other (BKA, amputation of the toes) Neurologic/Psychiatric: Other (sedated) Skin: Normal Color, Warm/Dry Lymphatic: No Adenopathy Results Lab Laboratory Tests 04/17/18 14:30 04/18/18 04:00 04/19/18 03:44 Assessment/Plan Assessment/Plan Acute respiratory failure -Metabolic encephalopathy Hypotension r/o sepsis Acute on chronic renal failure with metabolic acidosis- worsening Hypoxia Infected left foot diabetic ulcer s/p left BKA POD #9 CHF Severe PVD CKD - pt refuses HD CAD with hx of CABG tobacco use urinary retention -continue [place] Discussed with family and they would like to proceed with comfort care only. They understand by withdrawing vent and medical support he will sooner however will be comfortable. Family wants to proceed with extubation. I have also discussed pt with Dr. Colon who knows patient and family very well. She is also in agreement with Comfort Measures Only. I am going to proceed with extubation after Angelique is d/c'd. Time spent with patient (mins): 60 Advance Care discuss with: family member (s) End of Life Care: Comfort Measures, Pallative Care, Hospice (Hospital), Hospice Care (Home) Advance Care Discussion: initiate discussion, clarifying prognosis, identified end-of-life goals, developed treatment plan ÁNGELA LEE DO Apr 19, 2018 05:17
[2018-04-19] MEDS: HYDROCORTISONE 100 MG/2 ML (Solu-CORTEF) VIAL IV SCH (05:18)
[2018-04-19] MEDS ORDERED: ACETAMINOPHEN 650 MG SUPP (TYLENOL) PR PRN (05:30)
[2018-04-19] MEDS ORDERED: GLYCOPYRROLATE 0.2 MG/ML (ROBINUL) 2 ML VIAL IV PRN (05:30)
[2018-04-19] MEDS ORDERED: SALIVA STIMULANT MOUTH SPRAY (BIOTENE) 1.5 OZ MM PRN (05:30)
[2018-04-19] MEDS ORDERED: BISACODYL 10 MG SUPP (DULCOLAX) PR PRN (05:30)
[2018-04-19] MEDS ORDERED: LORazepam INJ 2 MG/ML (ATIVAN) VIAL IVP PRN ×2 (05:30→13:30)
[2018-04-19] MEDS ORDERED: ARTIFICAL TEARS 0.4 ML UNIT DOSE (REFRESH PLUS) OU PRN (05:30)
[2018-04-19] MEDS ORDERED: morphine INJ 4 MG/ML 1 ML (VIAL/SYRINGE) IV PRN ×2 (05:30→07:30)
[2018-04-19] MEDS ORDERED: PROMETHAZINE INJ 25 MG/ML (PHENERGAN) AMP IVP PRN (05:30)
[2018-04-19] MEDS ORDERED: ONDANSETRON 4 MG/2 ML (SDV) Z0FRAN IVP PRN (05:30)
--- NOTE | 2018-04-19 05:35 | NUR ---
Left radial arterial line discontinued at this time. Non invasive blood pressure cuff in place.
--- NOTE | 2018-04-19 05:55 | NUR ---
Call placed to Rt for extubation at this time.
--- NOTE | 2018-04-19 06:00 | NUR ---
0600 patient extubated at this time. Oxygen @ 2L/NC applied. Patient tolerated without incident.
[2018-04-19] MEDS: NS IV 1000 ML 1,000 ML IV SCH (06:13)
[2018-04-19] MEDS: LORazepam INJ 2 MG/ML (ATIVAN) VIAL IVP PRN ×2 (07:36→09:55)
--- NOTE | 2018-04-19 08:40 | NUR ---
PT TO ROOM 420 VIA STRETCHER, ACCOMPANIED BY STAFF AND FAMILY. PERSONAL BELONGING WITH PT. REPORT RECEIVED FROM SADE GAMINO, ICU. THIS RN WILL ASSUME PT CARE AT THIS TIME.
--- NOTE | 2018-04-19 08:54 | Diagnostic Imaging Report ---
INDICATION: Intubated. COMPARISON: 04/18/2018. FINDINGS: Single view of the chest demonstrates cardiac enlargement with unchanged central vascular congestion and trace pulmonary edema. There is no pneumothorax or large effusion. Support lines are stable. Sternal wires are midline. IMPRESSION: 1. Unchanged aeration of the lungs. 2. Stable support lines. Dictated by: Dictated on workstation # [id number]
--- NOTE | 2018-04-19 10:46 | NUR ---
DR LEE NOTIFIED OF PTS NON RELIEF OF PAIN WITH CURRENT PRN MEDICATION. NEW ORDERS RECEIVED.
[2018-04-19] MEDS ORDERED: HYDROmorphone 2 MG/ML VIAL (DILAUDID) IV PRN (11:00)
--- NOTE | 2018-04-19 11:55 | Progress Note-Hospitalist ---
Subjective HPI/CC On Admission Date Seen by Provider: Apr 19, 2018 Time Seen by Provider: 11:45 CC: Hypotension and Hypoxia and AMS HPI: This is a 57yoWM clinic patient of mine w/h/o inoperable CAD and PVD who was transferred from IRF due to hypothermia and altered mental status. Pt was given IVF in IRF along with Narcan with improved status but transferred to ICU along with Dr Devi for observation but continued to decline requiring Dr Devi and Dr Roy consultation and subsequent intubation. He adamantly refuses dialysis and that is documented in my notes both clinic and hospital. Updated son Zander and he will see the patient soon. Appreciate all consultants help. Focused Exam Lactate Level 04/17/18 15:55: Lactic Acid Level 2.17*H 04/17/18 17:55: Lactic Acid Level 1.83 Objective Exam Vital Signs Vital Signs Date Time Temp Pulse Resp B/P (MAP) Pulse Ox O2 Delivery O2 Flow Rate FiO2 04/19/18 08:40 Room Air 04/19/18 07:52 93 04/19/18 07:51 97.2 04/19/18 07:01 62 04/19/18 07:00 23 108/70 (83) 2.00 04/19/18 03:45 30 Capillary Refill : Less Than 3 Seconds Results/Procedures Lab Laboratory Tests 04/19/18 03:44 Patient resulted labs reviewed. Assessment/Plan Assessment and Plan Assess & Plan/Chief Complaint Assessment: Multisystem organ failure VDRF CRF refuses dialysis Plan: Recommend terminal extubation tomorrow Poor prognosis Diagnosis/Problems Diagnosis/Problems (1) Hypovolemic shock Status: Acute (2) Ventilator dependent Status: Acute (3) Respiratory failure Status: Acute Qualifiers: Chronicity: acute Respiratory failure complication: hypoxia Qualified Codes: J96.01 - Acute respiratory failure with hypoxia Clinical Quality Measures DVT/VTE Risk/Contraindication: Risk Factor Score Per Nursin RFS Level Per Nursing on Admit: 4+=Very High ABIODUN SOLANO DO Apr 19, 2018 11:55
[2018-04-19] MEDS ORDERED: HYDROmorphone 2 MG/ML VIAL (DILAUDID) IV ONE (12:00)
[2018-04-19] MEDS ORDERED: HYDROmorphone PF INJECTION 20 MG in NS (IVPB) 100 ML IV PRN (12:00)
--- NOTE | 2018-04-19 12:20 | NUR ---
RN CALLED TO PT ROOM. PT RESPIRATIONS HAD CEASED. PT DEFIBRILLATOR ACTIVELY PROVIDING SHOCKS TO PT APPROX. EVERY 20-30 SECS. ICU NURSE TO ROOM WITH MAGNET. MAGNET APPLIED TO PT CHEST. DR SOLANO IN ROOM AT TIME OF . TIME OF CALLED AT 1220. FAMILY WAITING IN HALLWAY. POST MORTEM CARE PROVIDED.
--- NOTE | 2018-04-19 12:27 | Discharge Summary-Hospitalist ---
Diagnosis/Chief Complaint Date of Admission Apr 17, 2018 at 11:55 Date of Discharge Admission Diagnosis Assessment: Hypovolumic shock from diarrhea and poor PO intake Severely poor status chronically CRF refuses dialysis Plan: IVF Intubation Poor prognosis Discharge Diagnosis (1) Status: Acute (2) Hypovolemic shock Status: Acute (3) Ventilator dependent Status: Acute (4) Respiratory failure Status: Acute Discharge Summary Discharge Physical Exam Allergies: Coded Allergies: oxycodone HCl (Verified Allergy, Unknown, HAS RECEIVED HYDROMORPHONE W/O ISSUE, 01/01/18) protamine (Verified Allergy, Unknown, 01/01/18) Vitals & I&Os Vital Signs Date Time Temp Pulse Resp B/P (MAP) Pulse Ox O2 Delivery O2 Flow Rate FiO2 04/19/18 08:40 Room Air 04/19/18 07:52 93 04/19/18 07:51 97.2 04/19/18 07:01 62 04/19/18 07:00 23 108/70 (83) 2.00 04/19/18 03:45 30 General Appearance: Other () Hospital Course Was the Problem List Reviewed?: Yes Hospital course: Patient had a short hospital course after he was transferred from inpatient rehab to ICU for hypovolemia with diarrhea and respiratory failure with severe renal failure. He was placed on aggressive regimen in the ICU but kidney failure continued to worsen patient was a known nonsurgical candidate for PVD and CAD and he adamantly refused hemodialysis and we had just met with inpatient rehab team meeting and he would have to go to a [facility] of which he adamantly refused that also so that information was given to the son who already knew that was what his father wished so he was extubated and ultimately was placed on comfort care and with family at the bedside. Defibrillator and pacemaker were both neutralized with a magnet and he was deemed . Labs (last 24 hrs) Laboratory Tests 04/18/18 18:05: Glucometer 224H 04/18/18 23:48: Glucometer 233H 04/19/18 03:44: White Blood Count 11.4H, Red Blood Count 3.73L, Hemoglobin 10.7L, Hematocrit 32L , Mean Corpuscular Volume 85, Mean Corpuscular Hemoglobin 29, Mean Corpuscular Hemoglobin Concent 34, Red Cell Distribution Width 17.9H, Platelet Count 236, Mean Platelet Volume 10.5H, Neutrophils (%) (Auto) 95H, Lymphocytes (%) (Auto) 2L, Monocytes (%) (Auto) 3, Eosinophils (%) (Auto) 0, Basophils (%) (Auto) 0, Neutrophils # (Auto) 10.8H, Lymphocytes # (Auto) 0.2L, Monocytes # (Auto) 0.3, Eosinophils # (Auto) 0.0, Basophils # (Auto) 0.0, Blood Gas Puncture Site LEFT RADIAL, Blood Gas Patient Temperature 98.2, Arterial Blood pH 7.45H, Arterial Blood Partial Pressure CO2 32L, Arterial Blood Partial Pressure O2 94H, Arterial Blood HCO3 22L, Arterial Blood Total CO2 23.0, Arterial Blood Oxygen Saturation 97, Arterial Blood Base Excess -1.4, Moshe Test POSITIVE, Blood Gas Ventilator Setting YES, Blood Gas Inspired Oxygen 30%, Sodium Level 138, Potassium Level 4.4, Chloride Level 107, Carbon Dioxide Level 19L, Anion Gap 12 , Blood Urea Nitrogen 67H, Creatinine 3.53H, Estimat Glomerular Filtration Rate 18, BUN/Creatinine Ratio 19, Glucose Level 228H, Calcium Level 7.9L, Phosphorus Level 6.1H, Magnesium Level 2.3 Microbiology 04/17/18 Blood Culture - Preliminary, Resulted No growth 04/17/18 C. difficile GDH Antigen & Toxins - Final, Complete 04/17/18 Gram Stain - Final, Complete 04/17/18 Sputum Culture - Final, Complete Usual upper respiratory smooth Patient resulted labs reviewed. Discussion & Recommendations Discharge Planning: <30 minutes discharge planning Discharge Home Medications: Active Scripts Active Reported Atorvastatin Calcium 80 Mg Tablet 80 Mg PO DAILY Zoloft (Sertraline HCl) 50 Mg Tablet 50 Mg PO DAILY PRN LAST FILLED #30 01-09-18 Lasix (Furosemide) 40 Mg Tablet 40 Mg PO DAILY LAST FILLED #60 07-25-18 Coreg (Carvedilol) 3.125 Mg Tablet 3.125 Mg PO DAILY Cheratussin AC Syrup (Guaifenesin/Codeine Phosphate) 118 Ml Liquid 5 Ml PO Q4H PRN Levemir Flextouch (Insulin Detemir) 100 Unit/1 Ml Insuln.pen 14 Unit SQ DAILY Novolog Flexpen (Insulin Aspart) 300 Units/3 Ml Solution 12-16 Units SQ TIDAC Hydrocodon-Acetaminophn 10-325 (Hydrocodone/Acetaminophen) 1 Each Tablet 1 Tab PO Q4H PRN Probiotic (L.acidoph & Paracasei,B.lactis) 1 Each Capsule 1 Cap PO BID Amiodarone HCl 200 Mg Tablet 200 Mg PO DAILY Isosorbide Mononitrate ER (Isosorbide Mononitrate) 30 Mg Tab.er.24h 30 Mg PO DAILY Levothyroxine Sodium 200 Mcg Tablet 200 Mcg PO DAILY Nitroglycerin 0.4 Mg Tab.subl 0.4 Mg SL UD PRN Clopidogrel (Clopidogrel Bisulfate) 75 Mg Tablet 75 Mg PO DAILY Aspirin EC (Aspirin) 81 Mg Tablet.dr 81 Mg PO DAILY Instructions to patient/family Please see electronic discharge instructions given to patient. Clinical Quality Measures DVT/VTE Risk/Contraindication: Risk Factor Score Per Nursin RFS Level Per Nursing on Admit: 4+=Very High Problem Qualifiers (1) Respiratory failure: Chronicity: acute Respiratory failure complication: hypoxia Qualified Codes : J96.01 - Acute respiratory failure with hypoxia ABIODUN SOLANO DO Apr 19, 2018 12:27
--- NOTE | 2018-04-19 13:34 | NUR ---
THIS RN ATTEMPTED TO CALL PT NEXT OF KIN, SHAUN RAUSCH PT SON. MESSAGE LEFT FOR PT TO RETURN CALL. THIS RN WILL AWAIT THE CALL
--- NOTE | 2018-04-19 13:47 | NUR ---
PT SON, SHAUN RAUSCH, RETURNED CALL TO THIS RN. SON STATED HE WOULD COME [facility] PTS BELONGINGS. SON REQUESTED [facility] TO BE CALLED.
--- NOTE | 2018-04-19 13:56 | NUR ---
SALINE AND ICE APPLIED TO THE EYES. ICE BAGS APPLIED TO GROIN AND ARMPITS TO HELP COOL BODY PER [facility]ATION REQUEST.
--- NOTE | 2018-04-19 17:52 | NUR ---
THIS RN CONTACTED [facility] IN REGARDS TO UPDATE OF PT STATUS. OZ, [facility], STATED THEY ARE AWAITING CALL BACK FROM PT SON IN REGARDS TO DONATION. PT IS TO STAY ON FLOOR WITH COOLING MEASURES IN PLACE UNTIL FURTHER NOTICE.
--- NOTE | 2018-04-19 18:44 | NUR ---
THIS RN CONTACTED [facility] FOR UPDATE. WAS INFORMED THAT IN APPROX. 1 1/2 HOURS [facility] WITH CALL WITH MORE INFORMATION. THIS RN WILL PASS KNOWN INFORMATION ON TO NEXT SHIFT.
--- NOTE | 2018-04-19 19:40 | NUR ---
Update given to this RN by Citlaly Wisdom RN.
--- NOTE | 2018-04-19 20:05 | NUR ---
Return call from [facility]; expected arrival at 2200.
--- NOTE | 2018-04-19 22:30 | NUR ---
[facility] personnel here at this time.
--- NOTE | 2018-04-20 01:26 | NUR ---
[facility] donation completed at this time. Tissue transport team not on site at this time.
--- NOTE | 2018-04-20 02:50 | NUR ---
Contacted family to verify mortuary being used; [facility] [place], [place] [phone]. Tissue transport from [facility], LENIN Layton here at this time. Per Brent Spears, employee of [facility], he will be transporting remains to [facility], [place], [place]. Personal items and requested medical chart sent with pt's remains.
== END 2018-04-19 12:20 | disposition expired | DRG 208 ==
LOC: ICU 11:55 → 4TH 04-19 08:35
PROVIDERS: ADMIT Internal Medicine; ATTEND Internal Medicine
PROC: 5A1945Z Respiratory Ventilation, 24-96 Consecutive Hours (ICD-10-PCS; principal; 2018-04-17)
DX: J96.01 Acute respiratory failure with hypoxia (principal); R57.1 Hypovolemic shock; I13.0 Hypertensive heart and chronic kidney disease with heart failure and stage 1 through stage 4 chronic kidney disease, or unspecified chronic kidney disease; G93.41 Metabolic encephalopathy; I50.23 Acute on chronic systolic (congestive) heart failure; Z99.11 Dependence on respirator [ventilator] status; J18.9 Pneumonia, unspecified organism; Z51.5 Encounter for palliative care; N17.9 Acute kidney failure, unspecified; Z66 Do not resuscitate; R19.7 Diarrhea, unspecified; N18.9 Chronic kidney disease, unspecified; J44.9 Chronic obstructive pulmonary disease, unspecified; I25.10 Atherosclerotic heart disease of native coronary artery without angina pectoris; E11.51 Type 2 diabetes mellitus with diabetic peripheral angiopathy without gangrene; E11.40 Type 2 diabetes mellitus with diabetic neuropathy, unspecified; K21.9 Gastro-esophageal reflux disease without esophagitis; E03.9 Hypothyroidism, unspecified; F17.290 Nicotine dependence, other tobacco product, uncomplicated; I95.9 Hypotension, unspecified; R33.9 Retention of urine, unspecified; I25.5 Ischemic cardiomyopathy; I65.23 Occlusion and stenosis of bilateral carotid arteries; I48.0 Paroxysmal atrial fibrillation; E78.5 Hyperlipidemia, unspecified; Z89.421 Acquired absence of other right toe(s); Z89.512 Acquired absence of left leg below knee; Z89.411 Acquired absence of right great toe; Z95.1 Presence of aortocoronary bypass graft; Z79.4 Long term (current) use of insulin
CPT/HCPCS: 36415; 36600; 71045; 80048; 80053; 81000; 82805; 82962; 83605; 83735; 84100; 85025; 87040; 87070; 87205; 87324; 87449; 93005; 94002; 94003; 94640; 94799